=== PATIENT | male | born 1950 | race Caucasian/White ===

== ENCOUNTER → 2018-01-28 11:11 | Outpatient (CLI) | payer MEDICARE, SELFPAY ==
[2018-01-28 11:45] LABS: Absolute Lymphocyte Count 1.23 X10^3/ul (0.83-4.51); Absolute Neutrophil Count 3.6 X10^3/uL (2.0-7.7); Basophil# 0.03 X10^3/uL; Basophil% 0.5 % (0-1); Eosinophils% 5.5 % (0-5); Hematocrit 35.8 % (40-54); Lymphocyte # 1.23 X10^3/ul (4.0); Lymphocyte % 22.5 % (19-41); Mean Corp Hgb Conc 33.5 g/gl (32-36); Mean Corpuscular Hgb 30.9 pg (27.0-32.0); Mean Corpuscular Volume 92.3 fL (80-94); Mean Platelet Vol. 10.8 fl (6.2-12.0); Monocyte# 0.33 X10^3/uL; Neutrophil # 3.56 X10^3/uL (2.7-7.7); Neutrophil % 65.3 % (47-70); Platelet Count 134 K/mm3 (150-450); RBC Distribution Width CV 14.5 % (11.6-14.6); RBC Distribution Width SD 48.3 fl (35.1-43.9); Red Blood Count 3.88 M/mm3 (4.6-6.2); White Blood Count 5.5 K/mm3 (4.4-11.0)
[2018-01-28 11:49] LABS: POSITIVE COUNT NO; POSITIVE DIFFERENTIAL NO; POSITIVE MORPHOLOGY NO
[2018-01-28 12:02] LABS: Microalbumin:Creatinine Ratio 171.3 mg/g CRE (<30 mg/g CRE)
[2018-01-28 12:11] LABS: Hemoglobin A1c 5.8 % (4.2-6.3)
[2018-01-28 12:15] LABS: ALB/GLOB Ratio 1.3 RATIO (0.9-2.4); AST(SGOT) 27 U/L (15-37); Alanine Aminotransfer ALT/SGPT 23 U/L (16-61); Albumin, Serum 3.8 g/dL (3.2-5.0); Alkaline Phosphatase 93 U/L (45-117); Anion Gap 6 (5-15); BUN 44 mg/dL (7-18); Calcium,Total 8.4 mg/dL (8.5-10.1); Chloride 110 mmol/L (98-107); Cholesterol 171 mg/dL (200); Creatinine, Serum 1.42 mg/dL (0.70-1.30); EST Glomerular Filtration Rate 53 mL/min (>60); Est Glom Filt Rate - Afr Amer 64 mL/min (>60); Glucose 101 mg/dL (74-106); High Density Lipoprotein 30 mg/dL; PSA,Total - Annual Screen 4.08 ng/mL (0.00-4.00); Potassium 4.9 mmol/L (3.5-5.1); Protein, Total 6.8 g/dL (6.4-8.2); Sodium Level 140 mmol/L (136-145); Triglycerides 262 mg/dL; Uric Acid 5.4 mg/dL (3.5-7.2); Very Low Density Lipoprotein 52 mg/dL (5-40)
== END ==
PROVIDERS: Family Provider Family Medicine; PCP Family Medicine; Visit Provider Family Medicine
DX: I12.9 Hypertensive chronic kidney disease with stage 1 through stage 4 chronic kidney disease, or unspecified chronic kidney disease (principal); N18.3 Chronic kidney disease, stage 3 (moderate); E78.5 Hyperlipidemia, unspecified; Z12.5 Encounter for screening for malignant neoplasm of prostate; E29.1 Testicular hypofunction; R73.9 Hyperglycemia, unspecified
CPT/HCPCS: 36415; 80053; 80061; 82043; 82570; 83036; 84153; 84550; 85025; G0103

== ENCOUNTER → 2018-08-04 07:11 | Outpatient (CLI) | payer MEDICARE, SELFPAY ==
[2018-08-04 08:00] LABS: ALB/GLOB Ratio 1.2 RATIO (0.9-2.4); AST(SGOT) 21 U/L (15-37); Alanine Aminotransfer ALT/SGPT 11 U/L (16-61); Albumin, Serum 3.8 g/dL (3.2-5.0); Alkaline Phosphatase 88 U/L (45-117); Anion Gap 6 (5-15); BUN 71 mg/dL (7-18); BUN/Creat Ratio 43.3 RATIO (10-20); Calcium,Total 8.5 mg/dL (8.5-10.1); Chloride 110 mmol/L (98-107); Cholesterol 188 mg/dL (200); Creatinine, Serum 1.64 mg/dL (0.70-1.30); EST Glomerular Filtration Rate 45 mL/min (>60); Est Glom Filt Rate - Afr Amer 54 mL/min (>60); Globulin 3.2 g/dL (2.2-4.2); Glucose 115 mg/dL (74-106); High Density Lipoprotein 31 mg/dL; PSA,Total- Diagnostic 1.28 ng/mL (0.0-4.0); Potassium 4.6 mmol/L (3.5-5.1); Sodium Level 140 mmol/L (136-145); Triglycerides 192 mg/dL; Very Low Density Lipoprotein 38 mg/dL (5-40)
[2018-08-04 09:04] LABS: Vitamin D,25 Hydroxy 16.4 ng/mL (29.95-100.01)
== END ==
PROVIDERS: Family Provider Family Medicine; PCP Family Medicine; Referring Provider Family Medicine; Visit Provider Family Medicine
DX: E78.5 Hyperlipidemia, unspecified (principal); I10 Essential (primary) hypertension; R97.20 Elevated prostate specific antigen [PSA]; M10.9 Gout, unspecified; E29.1 Testicular hypofunction; E55.9 Vitamin D deficiency, unspecified; Z12.5 Encounter for screening for malignant neoplasm of prostate
CPT/HCPCS: 36415; 80053; 80061; 82306; 84153

== ENCOUNTER → 2019-01-18 | Outpatient (CLI) | payer MEDICARE, SELFPAY ==
[2018-12-30 13:41] VITALS: BMI 36.3
--- NOTE | 2019-01-18 07:00 | ECHOD_ITS ---
Reason For Study: AORTIC STENOSIS Procedure This was a 2D Doppler, Color Flow transthoracic echocardiogram. Technically difficult parasternal window d/t pectus excavatum. Exam performed in department. Left Ventricle Normal LV size. Mild concentric left ventricular hypertrophy. The estimated ejection fraction is 55 %. Stage 1 diastolic dysfunction. No regional wall motion abnormalities noted. Right Ventricle Normal RV size. Normal systolic function. Atria The left atrium is mildly enlarged. Normal right atrium. Mitral Valve There is mild mitral annular calcification. Mild (1+) eccentric mitral valve insufficiency. Tricuspid Valve Normal tricuspid valve. Unable to estimate RV systolic pressure due to inadequate jet, pulmonary artery pressure probably normal. Aortic Valve Trisinus/trileaflet aortic valve. Mild focal aortic valve calcification. Peak aortic valve gradient 16 mmHg. Mean aortic valve gradient 9 mmHg. Mild aortic stenosis. Calculated aortic valve area (continuity equation) is 1.6 cm2. Pulmonic Valve Normal pulmonic valve. Great Vessels Calcified aortic root. The pulmonary artery is normal size. Normal inferior vena cava. Pericardium/Pleural No pericardial effusion. MMode/2D Measurements & Calculations LVIDd: 4.3 cm IVSd: 1.3 cm LVOT diam: 2.0 cm LVIDs: 2.9 cm LVPWd: 1.2 cm LVOT area: 3.2 cm2 RVDd: 4.1 cm FS: 32.7 % Ao root diam: 3.9 cm LAV(MOD-bp): 77.0 ml EDV(MOD-sp4): 131.1 ml LAV(MOD-bp) Indexed: 33.6 ml/m2 ESV(MOD-sp4): 53.9 ml LAV(MOD-sp2): 76.4 ml EF(MOD-sp4): 58.9 % LAV(MOD-sp4): 74.8 ml EDV(MOD-sp2): 130.2 ml SV(MOD-sp4): 77.2 ml SV(MOD-sp2): 74.6 ml EF(MOD-sp2): 57.3 % LA A4 area: 24.5 cm2 LA dimension(2D): 4.5 cm RA A4 area: 17.7 cm2 Time Measurements MV dec time: 0.28 sec Doppler Measurements & Calculations MV E max derek: 101.1 cm/sec Lat Peak E' Derek: 7.0 cm/sec Med Peak E' Derek: 4.9 cm/sec MV A max dreek: 141.3 cm/sec E/E' lat: 14.4 E/E' med: 20.6 MV E/A: 0.72 MV V2 max: 151.5 cm/sec Ao V2 max: 201.9 cm/sec LV V1 max: 100.8 cm/sec MV max P.2 mmHg Ao max P.4 mmHg LV V1 max P.1 mmHg MV V2 mean: 83.9 cm/sec Ao V2 mean: 144.5 cm/sec LV V1 mean P.2 mmHg MV mean P.2 mmHg Ao mean P.4 mmHg LV V1 mean: 69.2 cm/sec MV V2 VTI: 46.6 cm Ao V2 VTI: 52.1 cm LV V1 VTI: 26.4 cm MVA(VTI): 1.8 cm2 RAFAT(I,D): 1.6 cm2 RAFAT(V,D): 1.6 cm2 SV(LVOT): 83.8 ml PA V2 max: 105.7 cm/sec PI end-d derek: 122.6 cm/sec MV P1/2t-pr_phl: 124.9 msec Interpretation Summary Normal LV size. Mild concentric left ventricular hypertrophy. The estimated ejection fraction is 55 %. Stage 1 diastolic dysfunction. Calculated aortic valve area (continuity equation) is 1.6 cm2. Mild aortic stenosis. Mild focal aortic valve calcification. Ordering Physician: Larry Stephenson/Federico Chacko Referring Physician: RAZIA MAYA Performed By: Valerie Bailye, KENDALL, RVT
[2019-01-18 07:42] LABS: Absolute Lymphocyte Count 1.43 X10^3/ul (0.83-4.51); Absolute Neutrophil Count 3.5 X10^3/uL (2.0-7.7); Basophil# 0.04 X10^3/uL; Basophil% 0.7 % (0-1); Eosinophil# 0.22 X10^3/uL; Eosinophils% 3.8 % (0-5); Hematocrit 36.2 % (40-54); Hemoglobin 12.1 g/dl (13.0-16.5); Lymphocyte # 1.43 X10^3/ul (4.0); Lymphocyte % 24.9 % (19-41); Mean Corp Hgb Conc 33.4 g/gl (32-36); Mean Corpuscular Hgb 30.4 pg (27.0-32.0); Mean Platelet Vol. 10.9 fl (6.2-12.0); Monocyte# 0.54 X10^3/uL; Monocyte% 9.4 % (0-10); Neutrophil % 60.9 % (47-70); Platelet Count 156 K/mm3 (150-450); RBC Distribution Width CV 14.5 % (11.6-14.6); RBC Distribution Width SD 47.4 fl (35.1-43.9); Red Blood Count 3.98 M/mm3 (4.6-6.2); White Blood Count 5.8 K/mm3 (4.4-11.0)
[2019-01-18 07:51] LABS: POSITIVE COUNT NO; POSITIVE DIFFERENTIAL NO; POSITIVE MORPHOLOGY NO
[2019-01-18 07:53] LABS: ALB/GLOB Ratio 1.3 RATIO (0.9-2.4); AST(SGOT) 27 U/L (15-37); Alanine Aminotransfer ALT/SGPT 12 U/L (16-61); Albumin, Serum 3.9 g/dL (3.2-5.0); Alkaline Phosphatase 78 U/L (45-117); Anion Gap 6 (5-15); BUN 73 mg/dL (7-18); BUN/Creat Ratio 32.9 RATIO (10-20); Calcium,Total 8.6 mg/dL (8.5-10.1); Chloride 110 mmol/L (98-107); Cholesterol 191 mg/dL (200); Creatinine, Serum 2.22 mg/dL (0.70-1.30); EST Glomerular Filtration Rate 31 mL/min (>60); Est Glom Filt Rate - Afr Amer 38 mL/min (>60); Globulin 3.1 g/dL (2.2-4.2); Glucose 113 mg/dL (74-106); High Density Lipoprotein 33 mg/dL; Potassium 5.1 mmol/L (3.5-5.1); Sodium Level 140 mmol/L (136-145); Triglycerides 177 mg/dL; Uric Acid 6.2 mg/dL (3.5-7.2); Very Low Density Lipoprotein 35 mg/dL (5-40)
[2019-01-18 08:20] LABS: Microalbumin,Random Urine 75.5 mg/L (NO RANGE EST.); Microalbumin:Creatinine Ratio 57.6 mg/g CRE (<30 mg/g CRE)
[2019-01-18 08:30] LABS: Vitamin D,25 Hydroxy 22.5 ng/mL (29.95-100.01)
[2019-01-18 08:32] LABS: Hemoglobin A1c 5.9 % (4.2-6.3)
== END | disposition home or self-care (01) ==
PROVIDERS: Family Provider Family Medicine; PCP Family Medicine; Referring Provider Nurse Practitioner Family; Visit Provider Nurse Practitioner Family
DX: I35.0 Nonrheumatic aortic (valve) stenosis (principal); I34.2 Nonrheumatic mitral (valve) stenosis; I44.30 Unspecified atrioventricular block; G47.33 Obstructive sleep apnea (adult) (pediatric); E78.5 Hyperlipidemia, unspecified; R73.01 Impaired fasting glucose; E55.9 Vitamin D deficiency, unspecified; M10.9 Gout, unspecified; I12.9 Hypertensive chronic kidney disease with stage 1 through stage 4 chronic kidney disease, or unspecified chronic kidney disease; N18.3 Chronic kidney disease, stage 3 (moderate)
CPT/HCPCS: 36415; 80053; 80061; 82043; 82306; 82570; 83036; 84550; 85025; 93306

== ENCOUNTER → 2019-01-31 | Outpatient (CLI) | payer MEDICARE, SELFPAY ==
[2018-12-30 13:41] VITALS: BMI 36.3
[2019-01-31 18:06] LABS: Anion Gap 10 (5-15); BUN 54 mg/dL (7-18); BUN/Creat Ratio 25.2 RATIO (10-20); Calcium,Total 9.2 mg/dL (8.5-10.1); Chloride 105 mmol/L (98-107); Creatinine, Serum 2.14 mg/dL (0.70-1.30); EST Glomerular Filtration Rate 33 mL/min (>60); Est Glom Filt Rate - Afr Amer 40 mL/min (>60); Glucose 100 mg/dL (74-106); Potassium 4.6 mmol/L (3.5-5.1); Sodium Level 143 mmol/L (136-145)
== END | disposition home or self-care (01) ==
LOC: BFHLAB 15:21
PROVIDERS: Family Provider Family Medicine; PCP Family Medicine; Visit Provider Family Medicine
DX: N18.3 Chronic kidney disease, stage 3 (moderate) (principal)
CPT/HCPCS: 36415; 80048

== ENCOUNTER → 2019-02-15 | Outpatient (CLI) | payer MEDICARE, SELFPAY ==
[2018-12-30 13:41] VITALS: BMI 36.3
[2019-02-15 12:34] LABS: Anion Gap 7 (5-15); BUN 52 mg/dL (7-18); Chloride 109 mmol/L (98-107); Creatinine, Serum 1.68 mg/dL (0.70-1.30); EST Glomerular Filtration Rate 43 mL/min (>60); Est Glom Filt Rate - Afr Amer 53 mL/min (>60); Glucose 109 mg/dL (74-106); Potassium 4.8 mmol/L (3.5-5.1); Sodium Level 140 mmol/L (136-145)
== END | disposition home or self-care (01) ==
LOC: LAB.FUTURE 08:12
PROVIDERS: Family Provider Family Medicine; PCP Family Medicine; Visit Provider Family Medicine
DX: N18.3 Chronic kidney disease, stage 3 (moderate) (principal)
CPT/HCPCS: 36415; 80048

== ENCOUNTER → 2019-08-19 08:55 | Outpatient (CLI) | payer MEDICARE, SELFPAY ==
[2018-12-30 13:41] VITALS: BMI 36.3
--- NOTE | 2019-08-19 08:58 | RAD_ITS ---
STUDY: X-RAY - LUMBAR SPINE REASON FOR EXAM: Male, 68 years old. CHRONIC BACK PAIN, NO KNOWN INJURY TECHNIQUE: 4 view(s) of the lumbar spine were obtained. COMPARISON: None FINDINGS: Normal lumbar lordosis. There is no substantial scoliosis. There is a normal alignment of the vertebrae. There is multilevel endplate spondylosis of the lumbar vertebrae. There is multi-level degenerative disc disease with multi-level disc space narrowing. These findings are more severe at L3-L4 where there is vacuum phenomenon. There is no demonstrated fracture. There is no demonstrated spondylolysis of the pars interarticulares. There are extensive bilateral facet hypertrophic changes. Surgical clips along the anterior spinal region. RAD/L/S Spine Min 4 Views IMPRESSION: Advanced spondylosis/degenerative disease with no acute fracture, spondylolisthesis or pars defect. Electronically Signed: Lauren Acharya MD at 0:27 EST , Service support ,
== END ==
PROVIDERS: Family Provider Family Medicine; PCP Family Medicine; Referring Provider Family Medicine; Visit Provider Family Medicine
DX: M54.5 Low back pain (principal); G89.29 Other chronic pain
CPT/HCPCS: 72110

== ENCOUNTER → 2020-01-27 | Outpatient (CLI) | payer MEDICARE, SELFPAY ==
[2020-01-03 15:54] VITALS: BMI 34.8
--- NOTE | 2020-01-27 08:52 | ECHOD_ITS ---
Reason For Study: MURMUR Procedure This was a 2D Doppler, Color Flow transthoracic echocardiogram. Exam performed in department. Left Ventricle Normal LV size. Left ventricular systolic function is normal. The estimated ejection fraction is 60 %. Stage 1 diastolic dysfunction. No regional wall motion abnormalities noted. Right Ventricle Normal RV size. Normal systolic function. Atria Normal left atrium. Normal right atrium. Mitral Valve There is mild to moderate mitral annular calcification. Mild (1+) eccentric mitral valve insufficiency. Tricuspid Valve Normal tricuspid valve. Mild (1+) tricuspid valve insufficiency. Pulmonary artery systolic pressure is 20 mmHg. Aortic Valve Trisinus/trileaflet aortic valve. Moderate focal aortic valve calcification. Aortic sclerosis, no stenosis. Pulmonic Valve Normal pulmonic valve. Great Vessels Calcified aortic root. The pulmonary artery is normal size. Normal inferior vena cava. Pericardium/Pleural No pericardial effusion. MMode/2D Measurements & Calculations LVIDd: 5.4 cm IVSd: 1.2 cm LVOT diam: 2.4 cm LVIDs: 2.9 cm LVPWd: 1.2 cm LVOT area: 4.4 cm2 RVDd: 3.7 cm FS: 46.2 % Ao root diam: 3.7 cm LAV(MOD-bp): 74.8 ml LA A4 area: 22.2 cm2 LAV(MOD-bp) Indexed: 33.0 ml/m2 LAV(MOD-sp2): 60.5 ml LAV(MOD-sp4): 79.0 ml LA dimension(2D): 4.4 cm RA A4 area: 16.8 cm2 Time Measurements MV dec time: 0.34 sec Doppler Measurements & Calculations MV E max derek: 98.7 cm/sec Lat Peak E' Derek: 6.8 cm/sec Med Peak E' Derek: 6.9 cm/sec MV A max derek: 139.5 cm/sec E/E' lat: 14.4 E/E' med: 14.3 MV E/A: 0.71 Ao V2 max: 225.5 cm/sec LV V1 max: 114.3 cm/sec SV(LVOT): 125.1 ml Ao max P.8 mmHg LV V1 max P.2 mmHg Ao V2 mean: 165.5 cm/sec LV V1 mean P.0 mmHg Ao mean P.4 mmHg LV V1 mean: 82.9 cm/sec Ao V2 VTI: 55.7 cm LV V1 VTI: 28.1 cm RAFAT(I,D): 2.2 cm2 RAFAT(V,D): 2.3 cm2 TR max derek: 209.8 cm/sec TR max P.6 mmHg Interpretation Summary Normal LV size. Left ventricular systolic function is normal. The estimated ejection fraction is 60 %. Moderate focal aortic valve calcification. Stage 1 diastolic dysfunction. Pulmonary artery systolic pressure is 20 mmHg. Ordering Physician: Federico Chacko Referring Physician: Tom Crocker Performed By: Bertha Negrete RDCS, RVT
[2020-01-27 11:27] LABS: Absolute Lymphocyte Count 0.96 X10^3/uL (0.83-4.51); Absolute Neutrophil Count 4.2 X10^3/uL (2.0-7.7); Basophil# 0.04 X10^3/uL; Basophil% 0.7 % (0-1); Eosinophil# 0.17 X10^3/uL; Eosinophils% 2.9 % (0-5); Hematocrit 36.9 % (40-54); Hemoglobin 12.5 g/dL (13.0-16.5); Lymphocyte # 0.96 X10^3/ul (4.0); Lymphocyte % 16.2 % (19-41); Mean Corp Hgb Conc 33.9 g/dL (32-36); Mean Corpuscular Hgb 31.9 pg (27.0-32.0); Mean Corpuscular Volume 94.1 fL (80-94); Mean Platelet Vol. 11.2 fl (6.2-12.0); Monocyte# 0.52 X10^3/uL; Monocyte% 8.8 % (0-10); NRBC Flagged by Analyzer 0 % (0-5); Neutrophil # 4.19 X10^3/uL (2.7-7.7); Neutrophil % 70.9 % (47-70); Platelet Count 164 K/mm3 (150-450); RBC Distribution Width CV 13.7 % (11.6-14.6); RBC Distribution Width SD 45.9 fl (35.1-43.9); Red Blood Count 3.92 M/mm3 (4.6-6.2); White Blood Count 5.9 K/mm3 (4.4-11.0)
[2020-01-27 12:17] LABS: BUN 50 mg/dL (7-18); Creatinine, Serum 1.56 mg/dL (0.70-1.30); Glucose 104 mg/dL (74-106)
[2020-01-27 12:18] LABS: ALB/GLOB Ratio 1.2 RATIO (0.9-2.4); AST(SGOT) 31 U/L (15-37); Alanine Aminotransfer ALT/SGPT 14 U/L (16-61); Albumin, Serum 3.7 g/dL (3.2-5.0); Alkaline Phosphatase 75 U/L (45-117); Anion Gap 6 (5-15); BUN/Creat Ratio 32.1 RATIO (10-20); Calcium,Total 9.2 mg/dL (8.5-10.1); Chloride 110 mmol/L (98-107); Cholesterol 196 mg/dL (200); EST Glomerular Filtration Rate 47 mL/min (>60); Est Glom Filt Rate - Afr Amer 57 mL/min (>60); Globulin 3.1 g/dL (2.2-4.2); High Density Lipoprotein 34 mg/dL; PSA,Total - Annual Screen 1.64 ng/mL (0.00-4.00); Potassium 5.1 mmol/L (3.5-5.1); Protein, Total 6.8 g/dL (6.4-8.2); Sodium Level 140 mmol/L (136-145); Triglycerides 216 mg/dL; Uric Acid 5.5 mg/dL (3.5-7.2); Very Low Density Lipoprotein 43 mg/dL (5-40)
[2020-01-27 16:07] LABS: Vitamin D,25 Hydroxy 29.6 ng/mL
== END | disposition home or self-care (01) ==
PROVIDERS: PCP Family Medicine; Referring Provider Internal Medicine Cardiovascular Disease; Visit Provider Internal Medicine Cardiovascular Disease
DX: I35.0 Nonrheumatic aortic (valve) stenosis (principal); I12.9 Hypertensive chronic kidney disease with stage 1 through stage 4 chronic kidney disease, or unspecified chronic kidney disease; N18.3 Chronic kidney disease, stage 3 (moderate); E55.9 Vitamin D deficiency, unspecified; M10.9 Gout, unspecified; Z12.5 Encounter for screening for malignant neoplasm of prostate
CPT/HCPCS: 36415; 80053; 80061; 82306; 84153; 84550; 85025; 93306; G0103

== ENCOUNTER → 2020-08-07 08:46 | Outpatient (CLI) | payer BC, SELFPAY ==
[2020-01-03 15:54] VITALS: BMI 34.8
[2020-08-07 12:11] LABS: Absolute Lymphocyte Count 0.99 X10^3/uL (0.83-4.51); Absolute Neutrophil Count 3.3 X10^3/uL (2.0-7.7); Basophil# 0.03 X10^3/uL; Basophil% 0.6 % (0-1); Eosinophil# 0.19 X10^3/uL; Eosinophils% 3.8 % (0-5); Hemoglobin 11.2 g/dL (13.0-16.5); Lymphocyte # 0.99 X10^3/ul (4.0); Lymphocyte % 19.8 % (19-41); Mean Corpuscular Hgb 30.9 pg (27.0-32.0); Mean Corpuscular Volume 96.4 fL (80-94); Monocyte# 0.49 X10^3/uL; Monocyte% 9.8 % (0-10); NRBC Flagged by Analyzer 0 % (0-5); Neutrophil # 3.29 X10^3/uL (2.7-7.7); Neutrophil % 65.6 % (47-70); Platelet Count 144 K/mm3 (150-450); RBC Distribution Width CV 14.6 % (11.6-14.6); RBC Distribution Width SD 51.1 fl (35.1-43.9); Red Blood Count 3.63 M/mm3 (4.6-6.2)
[2020-08-07 12:35] LABS: ALB/GLOB Ratio 1.3 RATIO (0.9-2.4); AST(SGOT) 37 U/L (15-37); Alanine Aminotransfer ALT/SGPT 22 U/L (16-61); Albumin, Serum 3.9 g/dL (3.2-5.0); Alkaline Phosphatase 66 U/L (45-117); Anion Gap 7 (5-15); BUN 51 mg/dL (7-18); BUN/Creat Ratio 31.1 RATIO (10-20); Calcium,Total 9.1 mg/dL (8.5-10.1); Chloride 111 mmol/L (98-107); Cholesterol 200 mg/dL (200); Creatinine, Serum 1.64 mg/dL (0.70-1.30); EST Glomerular Filtration Rate 44 mL/min (>60); Est Glom Filt Rate - Afr Amer 54 mL/min (>60); Globulin 2.9 g/dL (2.2-4.2); Glucose 108 mg/dL (74-106); High Density Lipoprotein 35 mg/dL; Magnesium 1.9 mg/dL (1.6-2.6); Potassium 4.8 mmol/L (3.5-5.1); Protein, Total 6.8 g/dL (6.4-8.2); Sodium Level 140 mmol/L (136-145); Thyroid Stim Hormone (TSH) 3.66 uIU/mL (0.358-3.74); Triglycerides 191 mg/dL; Very Low Density Lipoprotein 38 mg/dL (5-40)
== END ==
PROVIDERS: PCP Family Medicine; Visit Provider Family Medicine
DX: I12.9 Hypertensive chronic kidney disease with stage 1 through stage 4 chronic kidney disease, or unspecified chronic kidney disease (principal); N18.30 Chronic kidney disease, stage 3 unspecified; R25.2 Cramp and spasm
CPT/HCPCS: 36415; 80053; 80061; 83735; 84443; 85025

== ENCOUNTER 2020-11-26 | Observation (INO) | payer MEDICARE, SELFPAY ==
[2020-11-21 08:57] VITALS: BMI 34.7
[2020-11-26] VITALS (34 sets, daily range): BP systolic 109–215; BP diastolic 76–102; PULSE 58–88; RESP 14–22; TEMP 36.2–36.8; O2SAT 92–99; BMI 36.7; BMI 34.9; BMI 35.0
--- NOTE | 2020-11-26 00:32 | ED.RN ---
CALLED FOR EKG PER RN REQUEST, PT COMPLAINT OF CHEST PRESSURE, PULLED OLD EKGS FOR
--- NOTE | 2020-11-26 00:47 | EKG12_ITS ---
Test Reason : AM EKG Blood Pressure : / mmHG Vent. Rate : 060 BPM Atrial Rate : 060 BPM P-R Int : 238 ms QRS Dur : 080 ms QT Int : 450 ms P-R-T Axes : 018 005 013 degrees QTc Int : 450 ms Sinus rhythm with 1st degree A-V block Otherwise normal ECG When compared with ECG of 04-JUL-2014 09:25, No significant change was found Confirmed by GAURANG BRAGA, ZAID ([id number]), film and video editor RONNELL CHERY ([id number]) on 11/27/2020 10:52:31 AM Referred By: BARB Confirmed By:ZAID MERLOS MD
--- NOTE | 2020-11-26 00:49 | ED.DCSUM_ITS ---
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 Negative for: Nausea, Vomiting, Diaphoresis, Cough, Fever, Lightheadedness Narrative: 70-year-old male states he suddenly had palpitations and shortness of breath tonight, and he thinks chest pressure. The palpitations and dyspnea lasted just for couple minutes, and resolved prior to EMS arrival. The chest pressure has been present ever since. He states that the dyspnea is much better, the discomfort is not pleuritic and does not radiate. He has never had this before and does not have a history of heart problems except for a murmur that is followed with echocardiograms annually. He states that he had his second Covid vaccine, Moderna, 3 days ago and had no side effects such as fevers, headaches, myalgias from it. Also around that time, because of the swelling in his legs and elevated blood pressures, he was placed on Lasix 40 mg twice, followed by 20 mg the next morning, and none yesterday in addition to changing his daily propranolol to carvedilol, which he started 2 days ago. Yesterday he said he had systolic blood pressures in the 120s, this morning they were in the 180s and currently upon arrival to the ER he is 207/92. He states he had a mild headache this morning, it is a little worse now. His swelling was down in his legs after the Lasix, but today it is worse again. He has had no near syncopal episodes or syncope, even with the palpitations. No focal neurologic symptoms or vision changes. No confusion or disorientation. 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 Past Medical History - Allergies and Home Meds Allergies/Adverse Reactions: Allergies clindamycin Allergy (Verified 11/26/20 00:02) Swelling Sulfa (Sulfonamide Antibiotics) Allergy (Verified 11/26/20 00:02) Unknown simvastatin Adverse Reaction (Verified 11/26/20 00:02) myalgia Primary Care Physician: Tom Crocker DO [Primary Care Provider] - Doctors: Cardiology - [facility] Lives: Spouse/ Significant Other Smoking Status: Never smoker Review of Systems General: Denies: Chills, Fever, Sweats Eyes: Denies: Visual changes - bilaterally, Diplopia ENT: Denies: Bilateral ear pain, Rhinorrhea, Sore throat Cardiovascular: Reports: Chest pain, Palpitations, Heart racing Respiratory: Reports: Dyspnea. Denies: Cough, Dyspnea on exertion Gastrointestinal: Denies: Abdominal pain, Nausea, Vomiting, Diarrhea, Melena, Hematochezia Genitourinary: Denies: Dysuria, Hematuria, Frequency Musculoskeletal: Reports: Swelling - worse today. Denies: Neck pain, Back pain, Extremity Pain Skin: Denies: Rash, Wounds Neurological: Reports: Headache. Denies: Weakness, Numbness Physical Exam Vital Signs/Narrative: Vital Signs Temp Pulse Resp BP Pulse Ox 11/26/20 00:42 71 16 207/92 H 98 11/26/20 00:02 97.2 F L 67 22 H 211/92 H 99 Inital Vital Signs reviewed: Yes General: Well nourished, Well developed, No Acute Distress - Conversive in full sentences, provides entire history Head: Normocephalic, Atraumatic Eyes: Perrl, EOMI ENT: Moist mucous membranes, No rhinorrhea Neck: Supple, Nontender, No lymphadenopathy, No JVD Cardiovascular: Regular rate, Regular rhythm, Murmur - Systolic soft ejection murmur, 2/6. Negative for: Tachycardia Respiratory: No distress, CTA bilaterally, Chest nontender Abdomen: Soft, Nontender, Nondistended, Normal bowel sounds Back: Nontender, Normal Inspection Extremities: Nontender, Edema - 2+ both lower extremities to the mid smith- proximal smith, symmetric bilaterally. Negative for: Calf Tenderness Skin: Normal color, No rash, No Trauma Neurological: Alert, Oriented x3, Cranial nerves II-XII grossly intact, Normal Strength, Normal Sensation Psychological: Normal affect, Normal Mood Diagnostic/Tx/Re-eval Impressions Chest X-Ray 11/26/20 01:32 IMPRESSION: Normal x-ray examination of the chest. Electronically Signed: Tari Marrufo MD at 2:39 EDT Tel , Service support , 11/26/20 01:32 Chest 1 View (Portable) [RAD] Stat Laboratory Results 11/26/20 11/26/20 11/26/20 01:30 01:30 01:30 WBC 4.7 RBC 3.98 L Hgb 12.4 L Hct 36.9 L MCV 92.7 MCH 31.2 MCHC 33.6 RDW Std Deviation 46.4 H RDW Coeff of Nir 13.6 Plt Count 159 MPV 10.6 Immature Gran % (Auto) 0.600 Neut % (Auto) 62.5 Lymph % (Auto) 21.5 [place] % (Auto) 10.0 Eos % (Auto) 4.5 Baso % (Auto) 0.9 Absolute Neuts (auto) 2.9 Absolute Lymphs (auto) 1.01 Nucleated RBC % 0 Sodium 136 Potassium 4.9 Chloride 104 Carbon Dioxide 27.0 Anion Gap 5 BUN 42 H Creatinine 1.28 Estim Creat Clear Calc 55.45 Est GFR (MDRD) Af Amer 72 Est GFR (MDRD) Non-Af 59 L BUN/Creatinine Ratio 32.8 H Glucose 112 H Calcium 8.9 Troponin I 0.215 H B-Natriuretic Peptide 80.5 - Rhythm Strip Rhythm Strip: Sinus Rhythm Rate: 68 Ectopy: None - EKG Initial EKG Interpretation: Sinus Rhythm, No Acute Injury Pattern, AV Block - First-degree, - - Otherwise normal EKG Prior: Unchanged - Similar to EMS EKG and old EKG Treatment: Aspirin, NTG SL DIGNA Risk: Age >/= 65, ASA within 7 days - Takes baby aspirin daily Score: 2 - Medical Decision Making Heart score is 1, 0, 2, 1, 0 = 4. Patient was given IV Lasix; he declined nitroglycerin since when the nurse offered it, his pressure had resolved. On reevaluation, he still has resolution of the pressure but still has a headache. I had held off on treating his blood pressure until after he received nitroglycerin to see where he was at with his BP, but since he did not get any, and his troponin is abnormal, he was given aspirin in addition to clonidine 0.1 mg orally, and nitroglycerin paste on his chest. Prior to initiating these medications, his repeat blood pressure is 173 systolic, and his heart rate is 60 so I held off on labetalol/beta-francisco due to the relative bradycardia. He was also given Tylenol for the headache and to prevent the nitroglycerin for making it worse. His EKG shows nothing acute, now his discomfort is gone, plan is for admission and further work-up and evaluation. Discussed with cardiology Dr. Chacko who prefers him to have a Lovenox injection and no clopidogrel load at this time. Discussed with hospitalist. Will admit to ICU. ED Disposition - Plan for ED Patient: Disposition: Acute Care Hospital [facility] Diagnosis: Unstable angina, Palpitations, Accelerated hypertension Referrals: Tom Crocker DO [Primary Care Provider] -
[2020-11-26] MEDS: Aspirin 81 MG TAB.CHEW 324 MG PO (01:01)
[2020-11-26] MEDS: Furosemide 20 MG/2 ML VIAL IV (01:01)
[2020-11-26 01:31] LABS: Absolute Lymphocyte Count 1.01 X10^3/uL (0.83-4.51); Absolute Neutrophil Count 2.9 X10^3/uL (2.0-7.7); Basophil# 0.04 X10^3/uL; Basophil% 0.9 % (0-1); Eosinophil# 0.21 X10^3/uL; Eosinophils% 4.5 % (0-5); Hematocrit 36.9 % (40-54); Hemoglobin 12.4 g/dL (13.0-16.5); Lymphocyte # 1.01 X10^3/ul (4.0); Lymphocyte % 21.5 % (19-41); Mean Corp Hgb Conc 33.6 g/dL (32-36); Mean Corpuscular Hgb 31.2 pg (27.0-32.0); Mean Corpuscular Volume 92.7 fL (80-94); Mean Platelet Vol. 10.6 fl (6.2-12.0); Monocyte# 0.47 X10^3/uL; NRBC Flagged by Analyzer 0 % (0-5); Neutrophil # 2.93 X10^3/uL (2.7-7.7); Neutrophil % 62.5 % (47-70); Platelet Count 159 K/mm3 (150-450); RBC Distribution Width CV 13.6 % (11.6-14.6); RBC Distribution Width SD 46.4 fl (35.1-43.9); Red Blood Count 3.98 M/mm3 (4.6-6.2); White Blood Count 4.7 K/mm3 (4.4-11.0)
--- NOTE | 2020-11-26 01:32 | RAD_ITS ---
STUDY: X-RAY CHEST REASON FOR EXAM: Male, 70 years old. chest pain TECHNIQUE: Single AP portable view of the chest. COMPARISON: None. FINDINGS: The lungs are clear and expanded. There is no demonstrated pleural abnormality. Normal size heart. Normal mediastinum and tai. Normal visualized pulmonary arteries. Normal visualized aortic arch and descending thoracic aorta. Normal visualized thoracic spine. Normal visualized ribs, clavicles, and shoulders. There is no demonstrated abnormality of the visualized soft tissue structures of the upper abdomen. RAD/Chest 1 View (Portable) IMPRESSION: Normal x-ray examination of the chest. Electronically Signed: Tari Marrufo MD at 2:39 EDT Tel , Service support ,
[2020-11-26 01:47] LABS: BNP,B-Type NATRIURETIC PEPTIDE 80.5 pg/mL (0-100)
[2020-11-26 01:49] LABS: Anion Gap 5 (5-15); BUN 42 mg/dL (7-18); BUN/Creat Ratio 32.8 RATIO (10-20); Calcium,Total 8.9 mg/dL (8.5-10.1); Chloride 104 mmol/L (98-107); Creatinine, Serum 1.28 mg/dL (0.70-1.30); EST Glomerular Filtration Rate 59 mL/min (>60); Est Glom Filt Rate - Afr Amer 72 mL/min (>60); Estimated Creatinine Clearance 55.45 ml/min; Glucose 112 mg/dL (74-106); Potassium 4.9 mmol/L (3.5-5.1); Sodium Level 136 mmol/L (136-145)
[2020-11-26] MEDS: cloNIDine HCl 0.1 MG Tablet 0.2 MG PO (02:50)
[2020-11-26] MEDS: Nitroglycerin Oint 1 INCH PACKET TD (02:56)
[2020-11-26] MEDS: Acetaminophen 500 MG Tablet 1000 MG PO (02:56)
--- NOTE | 2020-11-26 03:06 | HP.PCM_ITS ---
Problem List (1) Hypertensive urgency Status: Acute (2) Chest pain Status: Acute Qualifiers: Chest pain type: unspecified Qualified Code(s): R07.9 - Chest pain, unspecified (3) Cardiac enzymes elevated Status: Acute (4) PATRICIO (obstructive sleep apnea) Status: Chronic (5) Hyperlipidemia Status: Chronic Qualifiers: Hyperlipidemia type: unspecified Qualified Code(s): E78.5 - Hyperlipidemia, unspecified (6) Parkinsons disease Status: Chronic (7) Essential (primary) hypertension Status: Chronic (8) Nonrheumatic aortic (valve) stenosis Status: Chronic (9) Testicular malignancy Status: Chronic Qualifiers: Descendance of testis: unspecified Laterality: right Qualified Code(s): C62.91 - Malignant neoplasm of right testis, unspecified whether descended or undescended Comment: Right testicular resection due to malignant tumor with lymph nodes removed History of Present Illness Date of Admission: 11/26/20 Chief Complaint: Chest pain, headache, palpitations, elevated BP. The patient is a 70 y/o M w/ PMHx: CKD stage III, Parkinson's disease, Essential tremor, HTN, HLD, Hypothyroidism, Gout, PATRICIO, Hx Testicular CA s/p resection who presents to the [facility] ED on 11/26/20 with history of 3 to 4 months of worsening lower extremity swelling and discomfort with recent 11/21/2020 urgent cardiology evaluation secondary to uncontrolled high blood pressure with recent change of his medications for essential tremor with cardiology transition off of propranolol to Coreg, continue losartan and at that visit initiation of Lasix therapy in an attempt to assist with his lower extremity swelling and his blood pressure however there was reported to call back with low blood pressures therefore this had been held however patient had recurrent significantly elevated blood pressures a.m. prior to ED presentation with systolic in the 180s with onset of mild headache rated 4-5 out of 10 in severity, frontal, pressure- like and sensation, recurrent lower extremity swelling despite recent Lasix administration as well as onset of chest discomfort, midsternal, nonradiating, pressure-like sensation, rated 4-6 out of 10 in severity, resolved prior to ED presentation with no radiation, dyspnea, lightheadedness, dizziness associated however did have palpitations/racing heart starting approximately 2 hours prior to ED arrival noted to be intermittent, lasting 1 to 2 minutes with associated dyspnea described as severe although improved upon ED presentation. Patient does report having his recent Covid second Moderna vaccination 3 days prior to current presentation with no significant side effects. Work-up in the ED included T 97.2, heart rate 67, BP initially 211/92--> eventually decreasing following significant medication administration in the ED to 174/93, respiratory rate 22, 99% on room air, CBC with WC 4.7, hemoglobin 12.4, platelet 159 without marked shift, BMP with BUN/creatinine 42/1.28, glucose 112, troponin 0 0.215, BNP 80.5, chest x-ray with no acute cardiopulmonary findings, EKG with sinus rhythm with first-degree AV block with no acute evidence of ischemia unchanged from prior. In the ED patient ministered nitroglycerin, aspirin 324 mg p.o. x1 and Lasix 20 mg IV x1. Patient blood pressure did not improve therefore Nitro- Bid paste placed, clonidine 0.2 mg p.o. x1 also administered and patient administered labetalol 10 mg IV x1. Past Medical History Past Medical History (Chronic Problems): Chronic Problems (Last Reviewed 11/22/20 @ 11:24 by Reyna ALVARADO, PA) Parkinsons disease (Chronic) PATRICIO (obstructive sleep apnea) (Chronic) Hyperlipidemia (Chronic) Essential (primary) hypertension (Chronic) Nonrheumatic aortic (valve) stenosis (Chronic) Testicular malignancy (Chronic) Right testicular resection due to malignant tumor with lymph nodes removed Medical History: Medical History (Last Reviewed 11/22/20 @ 11:24 by Reyna ALVARADO, PA) Essential (primary) hypertension (Chronic) I10 Nonrheumatic aortic (valve) stenosis (Chronic) I35.0 Testicular malignancy (Chronic) C62.90 Right testicular resection due to malignant tumor with lymph nodes removed CKD (chronic kidney disease) N18.9 Gout M10.9 Hypothyroidism E03.9 PATRICIO (obstructive sleep apnea) G47.33 Obesity E66.9 Parkinsons disease G20 Tremor, essential G25.0 Nonrheumatic mitral (valve) stenosis (Ruled-out) I34.2 Atrioventricular block (Inactive) I44.30 Cardiomegaly (Inactive) I51.7 Allergies clindamycin Allergy (Verified 11/26/20 00:02) Swelling Sulfa (Sulfonamide Antibiotics) Allergy (Verified 11/26/20 00:02) Unknown simvastatin Adverse Reaction (Verified 11/26/20 00:02) myalgia Home Medications: Ambulatory Orders Medication Instructions Recorded Allopurinol [Zyloprim] 300 mg PO DAILY 10/18/13 Aspirin [Aspirin, Baby] 81 mg PO DAILY@0800 10/18/13 Carbidopa/Levodopa 50/200 [Sinemet 1 tab PO TIDAC 10/18/13 CR 50/200] pramipexole 0.25 mg tablet 0.25 mg PO TID tab 01/01/18 ascorbic acid (vitamin C) 1,000 mg 1,500 mg PO QDAY tab 01/03/20 tablet cholecalciferol (vitamin D3) 25 50 mcg PO DAILY 01/03/20 mcg (1,000 unit) capsule losartan 100 mg tablet 100 mg PO DAILY #90 tab 10/29/20 albuterol sulfate 90 mcg/actuation 1 inh INHALATION ONCE 11/21/20 aerosol inhaler primidone 50 mg tablet 50 mg PO BID tablet 11/21/20 tizanidine 2 mg capsule 2 mg PO TID PRN 11/21/20 carvedilol 12.5 mg tablet 12.5 mg PO BID #60 tablet 11/22/20 Triamcinolone Acetonide [Nasacort] 2 spray NS DAILY PRN 11/26/20 Surgical History: Surgical History (Last Reviewed 11/22/20 @ 11:24 by Reyna ALVARADO, PA) History of surgical removal of testicle Z98.890, Z90.79 History of tonsillectomy Z90.89 Surgical History: - - Tonsillectomy, testicular resection, right secondary to malignancy. Psychiatric History: No pertinent psych hx Lives: Spouse/ Significant Other Smoking Status: Never smoker Tobacco Use: Non-smoker Alcohol: None Drugs: None - *Family History Maternal Family History: Family History (Last Reviewed 11/22/20 @ 11:24 by Reyna ALVARADO, PA) Father CAD (coronary artery disease) Sudden cardiac , Onset Age: 59 Myocardial infarction, Onset Age: 59 Hypertension Mother Heart disease Hypertension Brother Sudden cardiac , Onset Age: 68 History Items: High Cholesterol, Heart Disease, Hypertension Paternal Family History: Family History (Last Reviewed 11/22/20 @ 11:24 by Reyna ALVARADO, PA) Father CAD (coronary artery disease) Sudden cardiac , Onset Age: 59 Myocardial infarction, Onset Age: 59 Hypertension Mother Heart disease Hypertension Brother Sudden cardiac , Onset Age: 68 History Items: High Cholesterol, Heart Disease, Hypertension Review of Systems Constitutional: Reports: Malaise, Weakness, Fatigue. Denies: Anorexia, Chills, Fever, Weight Change HEENT: Reports: Head Aches. Denies: Sinus Congestion, Sinus Drainage Cardiovascular: Reports: Chest Pain, Chest Pressure, Edema. Denies: Light Headedness, Orthopnea, Palpitations, Syncope Respiratory: Denies: Cough, Shortness of Breath, Shortness of breath at rest, Shortness of breath upon exertion, Sputum production Gastrointestinal: Denies: Abdominal Pain, Nausea, Vomiting Genitourinary: Denies: Dysuria Musculoskeletal: Reports: Joint Pain, Leg Pain. Denies: Joint Tenderness Skin: Denies: Rash, Wounds Neurological: Denies: Numbness, Tingling, Focal weakness Psychiatric: Denies: Anxiety, Depression, Homicidal Ideations, Suicidal Ideations Hematologic/ Lymphatic: Reports: Anemia. Denies: Easy Bruising, Easy Bleeding VTE Information - Inpt Only VTE Present on Admission: No VTE Mechan Device Prophylaxis: SCD's VTE Pharm Prophylaxis ordered?: Yes Patient Problems: Active and Suspected Problems (Last Reviewed 11/22/20 @ 11:24 by Reyna ALVARADO, PA) Unstable angina (Acute) Palpitations (Acute) Hypertensive urgency (Acute) Chest pain (Acute) Cardiac enzymes elevated (Acute) Subjective: Patient seated upright at the ED bedside, fatigued, notes headache still there, less severe, 3-4 currently out of 10 in severity, no recurrent chest pain. Objective: Physical Examination: General: awake, alert, oriented x 3 and cooperative, seated upright at the ED bedside, fatigued, notes headache still present but less severe, no chest pain. Skin: normal color, turgor, no icterus, cyanosis except noted mild stasis disease skin changes bilateral lower extremities. HEENT: AT/NC, EOMI, PERRLA, mildly dry MM, no carotid bruits or JVD noted. Lungs: Diminished breath sounds, greater bases, moderate effort, no evidence of any distress, no rales, ronchi or wheezing. Heart: Regular rate and rhythm; no gallop, rub audible, + SM. Abdomen: soft, obese, NTTP, ND, normal BS, no HSM. Extremities: no cyanosis or clubbing, see skin, pedal to proximal smith 3+ pitting edema. Neurological: patient awake, alert, oriented as noted; cognitive function intact; pupils equally reactive to light and accomodation; cranial nerves II-XII grossly normal, moving all 4 extremities, no focal deficits, strength moderately global decrease secondary to acute presentation. Psychiatric: affect appears fatigued, no acute evidence of depressive or anxiety feelings. - Physical Exam Vitals/I&O's: Vital Signs Temp Pulse Resp BP Pulse Ox 97.2 F L 61 20 H 174/93 H 98 11/26/20 00:02 11/26/20 02:50 11/26/20 02:50 11/26/20 02:56 11/26/20 02:50 Oxygen Delivery Method Room Air Weight: 255 lb 15.307 oz Body Mass Index (BMI) 36.7 Laboratory Results 11/26/20 01:30: WBC 4.7, RBC 3.98 L, Hgb 12.4 L, Hct 36.9 L, MCV 92.7, MCH 31.2, MCHC 33.6, RDW Std Deviation 46.4 H, RDW Coeff of Nir 13.6, Plt Count 159, MPV 10.6, Immature Gran % (Auto) 0.600, Neut % (Auto) 62.5, Lymph % (Auto) 21.5, [place] % (Auto) 10.0, Eos % (Auto) 4.5, Baso % (Auto) 0.9, Absolute Neuts (auto) 2.9, Absolute Lymphs (auto) 1.01, Nucleated RBC % 0 11/26/20 01:30: Sodium 136, Potassium 4.9, Chloride 104, Carbon Dioxide 27.0, Anion Gap 5, BUN 42 H, Creatinine 1.28, Estim Creat Clear Calc 55.45, Est GFR (MDRD) Af Amer 72, Est GFR (MDRD) Non-Af 59 L, BUN/Creatinine Ratio 32.8 H, Glucose 112 H, Calcium 8.9, Troponin I 0.215 H 11/26/20 01:30: B-Natriuretic Peptide 80.5 Current Medications Sodium Chloride () 1,000 mls @ 0 mls/hr IV .Q0M [facility] Nitroglycerin (Nitroglycerin Sl (Ed/Img/Cath) 0.4 Mg Tablet) 0.4 mg SL Q5M PRN PRN Reason: Chest pain Assessment/Plan All Active Problems (Last Reviewed 11/22/20 @ 11:24 by Reyna Vaca PA, PA) Unstable angina (Acute) Palpitations (Acute) Hypertensive urgency (Acute) Chest pain (Acute) Cardiac enzymes elevated (Acute) Nonrheumatic mitral (valve) stenosis (Ruled-out) The patient is a 70 y/o M w/ PMHx: CKD stage III, Parkinson's disease, Essential tremor, HTN, HLD, Hypothyroidism, Gout, PATRICIO, Hx Testicular CA s/p resection who presents to the [facility] ED on 11/26/20 with hx 3-4 months worsened BL LE edema, recent medication changes to propranolol with worsened BP with outpatient 11/21/20 Cardiology evaluation with changes to coreg and addition lasix transiently with then onset day prior to ED presentation noted elevated blood pressures a.m. w/ systolic in the 180s with onset of mild headache, recurrent lower extremity swelling despite recent Lasix administration as well as onset of chest discomfort with palpitations/racing heart starting approximately 2 hours prior to ED arrival. 1. Hypertensive Urgency with indeterminate cardiac enzyme, chest pain: Will admit to the ICU as do suspect may necessitate Cardene drip given recurrent elevation of his blood pressure despite ED regimen, will obtain cardiac enzyme series, obtain serial EKGs, monitor I/Os, continue medical therapy w/ asa, BB, ACEI, noted statin allergy, lasix, snug jennifer wraps, initiate Cardene drip if recurrent uncontrolled hypertension, Nitropaste. Obtain magnesium level. Most recent ECHO noted 01/27/2020 with normal LV size, normal LV systolic function, EF 60%, moderate focal AV calcification, stage I diastolic dysfunction, PASP 20 mmHg thus will request repeat. Initiated and will continue on therapeutic Lovenox. N.p.o. status pending cardiology evaluation with sips water with medications. FLP in AM. ASA, NG, morphine. 2. Hyperlipidemia: Statin allergy noted, FLP in AM. 3. Chronic normocytic anemia: Admission hemoglobin 12.4, prior baseline 11-12, stable, trend. 4. Valvular heart disease: 01/27/2020 with normal LV size, normal LV systolic function, EF 60%, moderate focal AV calcification, stage I diastolic dysfunction, PASP 20 mmHg. 5. Parkinson's disease: We will continue patient home Sinemet and pramipexole regimen. Maintain on fall precautions, therapies consulted, case management consulted for discharge planning. 6. Essential tremor: We will continue patient home primidone regimen. Recently transition from propranolol to Coreg as there was some concern the medication was associated with recent poorly controlled blood pressure. 7. History of testicular cancer: Patient status post testicular resection, remission status. 8. Chronic Kidney Disease Stage III: Admission BUN/Cr 42/1.28, baseline renal function 1.4-1.6, repeat BMP in AM. 9. Gout: We will continue patient home allopurinol regimen. 10. Obesity: Weight loss and lifestyle changes encouraged. 11. PATRICIO: We will maintain on CPAP nightly. 12. DVT prophylaxis: SCDs, continue therapeutic Lovenox. 13. CODE status: Patient ALFREDA is his who is present and living will is currently in place. Discussed CODE status at length including difference between FULL code, DNR-CCA and DNR-CC status. Following discussions about the differences in these status, requested Full Code status. Advanced Care Planning Face to Face Time: 16 minutes. Inpatient E&M: 92771 Init Hosp L3 Procedures: 54494 Advncd Care Plan 30 Min
[2020-11-26] MEDS: Enoxaparin 120 MG/0.8 ML Syringe 115 MG SC (04:01)
--- NOTE | 2020-11-26 04:05 | ECHOD_ITS ---
Reason For Study: HTN Procedure This was a 2D Doppler, Color Flow transthoracic echocardiogram. Exam performed portable in ICU/CCU. Left Ventricle Normal LV size. Left ventricular systolic function is normal. The estimated ejection fraction is 65 %. No regional wall motion abnormalities noted. Right Ventricle Normal RV size. Normal systolic function. Atria Normal left atrium. Normal right atrium. Mitral Valve There is mild to moderate mitral annular calcification. Mild-Moderate (1-2+) eccentric mitral valve insufficiency. Tricuspid Valve Normal tricuspid valve. Mild tricuspid valve insufficiency. Pulmonary artery systolic pressure is 24 mmHg. Aortic Valve Trisinus/trileaflet aortic valve. Mild focal aortic valve calcification. Peak aortic valve gradient 18 mmHg. Mean aortic valve gradient 9 mmHg. Mild aortic stenosis. Pulmonic Valve Normal pulmonic valve. Great Vessels Normal aortic root. Pericardium/Pleural No pericardial effusion. MMode/2D Measurements & Calculations LVIDd: 4.7 cm IVSd: 1.1 cm LVOT diam: 2.1 cm LVIDs: 3.2 cm LVPWd: 1.1 cm LVOT area: 3.4 cm2 RVDd: 3.9 cm FS: 32.6 % Ao root diam: 3.9 cm LAV(MOD-bp): 91.5 ml LVAd ap4: 36.4 cm2 LAV(MOD-bp) Indexed: 40.4 ml/m2 EDV(MOD-sp4): 119.6 ml LAV(MOD-sp2): 88.9 ml EDV(sp4-el): 127.1 ml LAV(MOD-sp4): 64.6 ml LVAs ap4: 19.5 cm2 ESV(MOD-sp4): 50.4 ml ESV(sp4-el): 48.0 ml EF(MOD-sp4): 57.9 % EF(sp4-el): 62.3 % SV(MOD-sp4): 69.2 ml SV(sp4-el): 79.1 ml Aortic Valve Planimetry: 1.6 cm2 LA A4 area: 20.3 cm2 LA dimension(2D): 4.7 cm RA A4 area: 11.8 cm2 Doppler Measurements & Calculations Lat Peak E' Derek: 4.9 cm/sec Med Peak E' Derek: 4.5 cm/sec MV V2 max: 169.0 cm/sec MV max P.4 mmHg MV V2 mean: 81.7 cm/sec MV mean P.3 mmHg MV V2 VTI: 45.2 cm MVA(VTI): 1.8 cm2 Ao V2 max: 212.4 cm/sec LV V1 max: 99.7 cm/sec SV(LVOT): 81.6 ml Ao max P.1 mmHg LV V1 max P.0 mmHg Ao V2 mean: 145.3 cm/sec LV V1 mean P.1 mmHg Ao mean P.3 mmHg LV V1 mean: 68.0 cm/sec Ao V2 VTI: 45.4 cm LV V1 VTI: 24.1 cm RAFAT(I,D): 1.8 cm2 RAFAT(V,D): 1.6 cm2 PA V2 max: 98.0 cm/sec TR max derek: 230.9 cm/sec MV P1/2t-pr_phl: 136.8 msec TR max P.3 mmHg ECHO/Echo Complete Interpretation Summary Normal LV size. Left ventricular systolic function is normal. The estimated ejection fraction is 65 %. There is mild to moderate mitral annular calcification. Mild-Moderate (1-2+) eccentric mitral valve insufficiency. Mild focal aortic valve calcification. Mild aortic stenosis. Ordering Physician: Jessica Perez Referring Physician: Tom Crocker Performed By: Valerie Bailey RDCS, RVT
--- NOTE | 2020-11-26 04:05 | EKG12_ITS ---
Test Reason : CHEST PRESSURE Blood Pressure : / mmHG Vent. Rate : 068 BPM Atrial Rate : 068 BPM P-R Int : 218 ms QRS Dur : 078 ms QT Int : 440 ms P-R-T Axes : 052 017 031 degrees QTc Int : 467 ms Sinus rhythm with 1st degree A-V block Otherwise normal ECG Confirmed by VANESSA BRAGA, PRESTON ([id number]), assignment editor RONNELL CHERY ([id number]) on 11/29/2020 9:28:19 AM Referred By: REECE Confirmed By:PRESTON MENDEZ MD
[2020-11-26 04:54] LABS: Absolute Lymphocyte Count 1.05 X10^3/uL (0.83-4.51); Absolute Neutrophil Count 2.8 X10^3/uL (2.0-7.7); Basophil# 0.05 X10^3/uL; Basophil% 1.1 % (0-1); Differential Indicated SCAN CRITERIA MET; Eosinophil# 0.18 X10^3/uL; Eosinophils% 3.9 % (0-5); Hematocrit 37.4 % (40-54); Hemoglobin 12.4 g/dL (13.0-16.5); Lymphocyte # 1.05 X10^3/ul (4.0); Mean Corp Hgb Conc 33.2 g/dL (32-36); Mean Corpuscular Hgb 31.6 pg (27.0-32.0); Mean Corpuscular Volume 95.2 fL (80-94); Mean Platelet Vol. 10.9 fl (6.2-12.0); Monocyte# 0.43 X10^3/uL; Monocyte% 9.4 % (0-10); NRBC Flagged by Analyzer 0 % (0-5); Neutrophil # 2.83 X10^3/uL (2.7-7.7); Neutrophil % 62.2 % (47-70); POSITIVE COUNT YES; Platelet Count 157 K/mm3 (150-450); RBC Distribution Width CV 13.6 % (11.6-14.6); RBC Distribution Width SD 47.4 fl (35.1-43.9); Red Blood Count 3.93 M/mm3 (4.6-6.2); White Blood Count 4.6 K/mm3 (4.4-11.0)
--- NOTE | 2020-11-26 04:58 | CPS ---
Patient will have a family member bring in home CPAP unit for overnight. Would not like to use a hospital's machine.
[2020-11-26 05:00] LABS: Partial Thromboplast Time 28.9 Seconds (24.1-36.2); Prothrombin Time (Protime)PT. 12.7 SECONDS (11.7-14.9)
[2020-11-26 05:13] LABS: ALB/GLOB Ratio 1.2 RATIO (0.9-2.4); AST(SGOT) 24 U/L (15-37); Alanine Aminotransfer ALT/SGPT 19 U/L (16-61); Albumin, Serum 3.5 g/dL (3.2-5.0); Alkaline Phosphatase 86 U/L (45-117); Anion Gap 7 (5-15); BUN 41 mg/dL (7-18); BUN/Creat Ratio 29.7 RATIO (10-20); Chloride 106 mmol/L (98-107); Cholesterol 239 mg/dL (200); Creatinine, Serum 1.38 mg/dL (0.70-1.30); EST Glomerular Filtration Rate 54 mL/min (>60); Est Glom Filt Rate - Afr Amer 66 mL/min (>60); Estimated Creatinine Clearance 51.43 ml/min; Glucose 115 mg/dL (74-106); High Density Lipoprotein 38 mg/dL; Magnesium 1.9 mg/dL (1.6-2.6); Potassium 4.7 mmol/L (3.5-5.1); Protein, Total 6.5 g/dL (6.4-8.2); Sodium Level 137 mmol/L (136-145); Triglycerides 212 mg/dL; Very Low Density Lipoprotein 42 mg/dL (5-40)
[2020-11-26] MEDS: CARBIDOPA/LEVODOPA CR 50/200 Tablet PO ×3 (06:17→15:59)
[2020-11-26] MEDS: Pramipexole Di-HCl 0.25 MG Tablet PO ×3 (06:17→21:00)
--- NOTE | 2020-11-26 07:41 | CON.PCM_ITS ---
Reason for Consult Date of Consultation: 11/26/20 Reason for Consultation: Shortness of breath and chest pressure History of Present Illness: The patient is a 70 year old M with a history of hypertension, recently diagnosed Parkinson's disease, aortic sclerosis who presented to the emergency room with mild shortness of breath as well as palpitations and mild chest pressure. He was noted to have a markedly elevated blood pressure with systolics over 200. He was given clonidine in the emergency room and then started on a Cardene drip in the ICU. His EKG did not demonstrate any significant abnormalities. He had minimal troponin elevation. He has had an echo within the last year which demonstrated an ejection fraction which was normal and mild aortic sclerosis. He has had no dizziness or diaphoresis no near syncope or syncope. [] Past Medical History Allergies/Adverse Reactions: Allergies clindamycin Allergy (Verified 11/26/20 00:02) Swelling Sulfa (Sulfonamide Antibiotics) Allergy (Verified 11/26/20 00:02) Unknown simvastatin Adverse Reaction (Verified 11/26/20 00:02) myalgia Home Medications: Ambulatory Orders Medication Instructions Recorded Allopurinol [Zyloprim] 300 mg PO DAILY 10/18/13 Aspirin [Aspirin, Baby] 81 mg PO DAILY@0800 10/18/13 Carbidopa/Levodopa 50/200 [Sinemet 1 tab PO TIDAC 10/18/13 CR 50/200] pramipexole 0.25 mg tablet 0.25 mg PO TID tab 01/01/18 ascorbic acid (vitamin C) 1,000 mg 1,500 mg PO QDAY tab 01/03/20 tablet cholecalciferol (vitamin D3) 25 50 mcg PO DAILY 01/03/20 mcg (1,000 unit) capsule losartan 100 mg tablet 100 mg PO DAILY #90 tab 10/29/20 albuterol sulfate 90 mcg/actuation 1 inh INHALATION ONCE 11/21/20 aerosol inhaler primidone 50 mg tablet 50 mg PO BID tablet 11/21/20 tizanidine 2 mg capsule 2 mg PO TID PRN 11/21/20 carvedilol 12.5 mg tablet 12.5 mg PO BID #60 tablet 11/22/20 Triamcinolone Acetonide [Nasacort] 2 spray NS DAILY PRN 11/26/20 Past Medical History (Chronic Problems): Chronic Problems (Last Reviewed 11/22/20 @ 11:24 by Reyna ALVARADO, PA) Parkinsons disease (Chronic) PATRICIO (obstructive sleep apnea) (Chronic) Hyperlipidemia (Chronic) Essential (primary) hypertension (Chronic) Nonrheumatic aortic (valve) stenosis (Chronic) Testicular malignancy (Chronic) Right testicular resection due to malignant tumor with lymph nodes removed Surgical History: - - Tonsillectomy, testicular resection, right secondary to malignancy. Psychiatric History: No pertinent psych hx - *Family History Maternal Family History: Family History (Last Reviewed 11/22/20 @ 11:24 by Reyna ALVARADO, PA) Father CAD (coronary artery disease) Sudden cardiac , Onset Age: 59 Myocardial infarction, Onset Age: 59 Hypertension Mother Heart disease Hypertension Brother Sudden cardiac , Onset Age: 68 History Items: High Cholesterol, Heart Disease, Hypertension Paternal Family History: Family History (Last Reviewed 11/22/20 @ 11:24 by Reyna ALVARADO, PA) Father CAD (coronary artery disease) Sudden cardiac , Onset Age: 59 Myocardial infarction, Onset Age: 59 Hypertension Mother Heart disease Hypertension Brother Sudden cardiac , Onset Age: 68 History Items: High Cholesterol, Heart Disease, Hypertension Lives: Spouse/ Significant Other Smoking Status: Never smoker Tobacco Use: Non-smoker Alcohol: None Drugs: None Review of Systems - Review of Systems General: Denies: Fever, Night Sweats, Fatigue HEENT: Denies: Vision Change Cardiovascular: Reports: Chest Discomfort. Denies: Shortness of Breath, Orthopnea, PND, Peripheral Edema, Palpitations, Lightheadedness, Dizziness, Near Syncope, Syncope Respiratory: Denies: Cough, Sputum Production, Hemoptysis Gastrointestinal: Denies: Hematemesis, Hematochezia, Melena Genitourinary: Denies: Dysuria, Hematuria Muscoloskeletal: Denies: Myalgias Skin: Denies: Rash Neurological: Denies: Dizziness Subjectve: Patient seen and evaluated Objective: Vital Signs Temp Pulse Resp BP Pulse Ox 97.4 F L 85 17 130/83 H 99 11/26/20 04:30 11/26/20 07:00 11/26/20 07:00 11/26/20 07:00 11/26/20 07:00 Oxygen Delivery Method Room Air Weight: 243 lb 9.773 oz Body Mass Index (BMI) 34.9 Intake and Output for Last 24 Hours 11/24/20 11/25/20 11/26/20 23:59 23:59 23:59 Intake Total 162.50 / 162.50 Output Total 500 / 500 Balance -337.50 / -337.50 General: Awake, Alert, Oriented x 3 HEENT: PERRL, EOMI, Sclera Non Icteric Neck: Supple, Good ROM, No Lymph Node Enlargement Lungs: Clear to auscultation Cardiovascular: Regular Rhythm, Normal S1, Normal S2, No Murmurs, No Rubs, No G allops Vascular: No Carotid Bruits, Normal Femoral Pulses, Normal Radial Pulses, Normal Dorsalis Pedal Pulse, Normal Posterior Tibial Pulses Abdomen: Bowel Sounds Present, Soft, Non Tender, No HSM, No Organomegaly Extremities: No Cyanosis, No Clubbing, No edema Musculoskeletal: No Erythema Skin: No Rashes Lymphatic: No Lymph Node Enlargement Neurological: No Focal Motor or Sensory Deficit Psych/Mental Status: Appropriate 11/26/20 01:30: WBC 4.7, RBC 3.98 L, Hgb 12.4 L, Hct 36.9 L, MCV 92.7, MCH 31.2, MCHC 33.6, Plt Count 159, MPV 10.6, Immature Gran % (Auto) 0.600, Neut % (Auto) 62.5, Lymph % (Auto) 21.5, [place] % (Auto) 10.0, Eos % (Auto) 4.5, Baso % (Auto) 0.9, Absolute Neuts (auto) 2.9, Nucleated RBC % 0 11/26/20 01:30: Sodium 136, Potassium 4.9, Chloride 104, Carbon Dioxide 27.0, Anion Gap 5, BUN 42 H, Creatinine 1.28, Est GFR (MDRD) Af Amer 72, Est GFR (MDRD) Non-Af 59 L, BUN/Creatinine Ratio 32.8 H, Glucose 112 H, Calcium 8.9, Troponin I 0.215 H 11/26/20 01:30: B-Natriuretic Peptide 80.5 11/26/20 04:40: WBC 4.6, RBC 3.93 L, Hgb 12.4 L, Hct 37.4 L, MCV 95.2 H, MCH 31.6, MCHC 33.2, Plt Count 157, MPV 10.9, Immature Gran % (Auto) 0.400, Neut % (Auto) 62.2, Lymph % (Auto) 23.0, [place] % (Auto) 9.4, Eos % (Auto) 3.9, Baso % (Auto) 1.1 H, Absolute Neuts (auto) 2.8, Nucleated RBC % 0 11/26/20 04:40: Sodium 137, Potassium 4.7, Chloride 106, Carbon Dioxide 24.0, Anion Gap 7, BUN 41 H, Creatinine 1.38 H, Est GFR (MDRD) Af Amer 66, Est GFR (MDRD) Non-Af 54 L, BUN/Creatinine Ratio 29.7 H, Glucose 115 H, Calcium 9.0, Magnesium 1.9, Total Bilirubin 0.30, Triglycerides 212 H, Cholesterol 239 H, LDL Cholesterol 159 H, VLDL Cholesterol 42 H, HDL Cholesterol 38 L 11/26/20 04:40: PT 12.7, INR 1.0, APTT 28.9 11/26/20 04:40: Troponin I 0.197 H Rhythm: EKG: NSR ECHO: Stress Test: Cardiac Cath: PCI: CT Surgery: Holter monitor: EPS: PPM: CXR: Chest CT Scan: Assessment/Plan 1. Severe Hypertension- * His blood pressure is uncontrolled at this time. However in the intensive care unit it has been better controlled. I will suggest that we make some adjustments to his blood pressure medications. * I would recommend adding amlodipine 10 mg a day * Increase carvedilol to 25 mg twice a day * Add hydrochlorothiazide 25 mg once a day * DC Lasix * Continue losartan * Repeat echocardiogram to assess ventricular function * 2. Aortic sclerosis * He does have mild aortic sclerosis and stenosis. I will recommend that we repeat his echocardiogram to assess the above. * 3. Abnormal cardiac enzymes * He has mildly abnormal cardiac enzymes which I suspect is from demand ischemia. I do not think that this warrants work-up at this particular time. * * Thank you for allowing me to participate in the care of your patient. Please don't hesitate to call if any issues arise.
[2020-11-26] MEDS: Carvedilol 25 MG Tablet PO ×2 (08:02→21:00)
[2020-11-26] MEDS: Furosemide 40 MG/4 ML Vial IV (08:02)
[2020-11-26] MEDS: 0.9% Saline Lock 10 ML Syringe IV (08:14)
[2020-11-26] MEDS: Acetaminophen 325 MG Tablet 650 MG PO (08:14)
[2020-11-26] MEDS: Aspirin 81 MG TAB.CHEW PO (09:55)
[2020-11-26] MEDS: Enoxaparin 120 MG/0.8 ML Syringe SC (09:55)
[2020-11-26] MEDS: Primidone 50 MG Tablet PO ×2 (09:56→20:59)
[2020-11-26] MEDS: Cholecalciferol (VIT D3) 25 MCG TABLET (1,000 UNITS) 50 MCG PO (09:56)
[2020-11-26] MEDS: Allopurinol 300 MG Tablet PO (09:57)
--- NOTE | 2020-11-26 11:20 | PCM.PN.HOSP ---
Patient Problems: Active and Suspected Problems (Last Reviewed 11/22/20 @ 11:24 by Reyna Vaca PA, PA) Unstable angina (Acute) Palpitations (Acute) Hypertensive urgency (Acute) Chest pain (Acute) Cardiac enzymes elevated (Acute) Accelerated hypertension (Acute) Subjective: Feels well. Noted swelling in LE after starting primidone. Weaned of nicardipine gtt. Vitals/I&O's: Vital Signs Temp Pulse Resp BP Pulse Ox 36.7 C 59 L 20 H 109/78 97 11/26/20 08:00 11/26/20 11:00 11/26/20 11:00 11/26/20 11:00 11/26/20 11:00 Oxygen Delivery Method Room Air Weight: 110.5 kg Body Mass Index (BMI) 34.9 Intake and Output for Last 24 Hours 11/24/20 11/25/20 11/26/20 23:59 23:59 23:59 Intake Total 610.00 / 610.00 Output Total 1375 / 1375 Balance -765.00 / -765.00 General: Alert, No apparent distress HEENT: Atraumatic, Normocephalic Oral: Moist Mucosa, No Gingival or Mucosal Lesions/ Ulcerations Neck: No Nodes, Thyroid Normal Size and Texture Lungs: Clear to auscultation, Normal air movement, No rhonchi, No wheeze, No rales Cardiovascular: Regular rate, Regular Rhythm, Normal S1, Normal S2, No murmurs Abdomen: Bowel Sounds Present, Soft, Non Tender, Non-Distended Extremities: No edema, No Calf Tenderness Skin: No rashes, No breakdown Psych/Mental Status: Normal Affect, Appropriate Laboratory Results 11/26/20 01:30: WBC 4.7, RBC 3.98 L, Hgb 12.4 L, Hct 36.9 L, MCV 92.7, MCH 31.2, MCHC 33.6, RDW Std Deviation 46.4 H, RDW Coeff of Nir 13.6, Plt Count 159, MPV 10.6, Immature Gran % (Auto) 0.600, Neut % (Auto) 62.5, Lymph % (Auto) 21.5, [place] % (Auto) 10.0, Eos % (Auto) 4.5, Baso % (Auto) 0.9, Absolute Neuts (auto) 2.9, Absolute Lymphs (auto) 1.01, Nucleated RBC % 0 11/26/20 01:30: Sodium 136, Potassium 4.9, Chloride 104, Carbon Dioxide 27.0, Anion Gap 5, BUN 42 H, Creatinine 1.28, Estim Creat Clear Calc 55.45, Est GFR (MDRD) Af Amer 72, Est GFR (MDRD) Non-Af 59 L, BUN/Creatinine Ratio 32.8 H, Glucose 112 H, Calcium 8.9, Troponin I 0.215 H 11/26/20 01:30: B-Natriuretic Peptide 80.5 11/26/20 04:40: WBC 4.6, RBC 3.93 L, Hgb 12.4 L, Hct 37.4 L, MCV 95.2 H, MCH 31.6, MCHC 33.2, RDW Std Deviation 47.4 H, RDW Coeff of Nir 13.6, Plt Count 157, MPV 10.9, Immature Gran % (Auto) 0.400, Neut % (Auto) 62.2, Lymph % (Auto) 23.0, [place] % (Auto) 9.4, Eos % (Auto) 3.9, Baso % (Auto) 1.1 H, Absolute Neuts (auto) 2.8, Absolute Lymphs (auto) 1.05, Nucleated RBC % 0 11/26/20 04:40: Sodium 137, Potassium 4.7, Chloride 106, Carbon Dioxide 24.0, Anion Gap 7, BUN 41 H, Creatinine 1.38 H, Estim Creat Clear Calc 51.43, Est GFR (MDRD) Af Amer 66, Est GFR (MDRD) Non-Af 54 L, BUN/Creatinine Ratio 29.7 H, Glucose 115 H, Calcium 9.0, Magnesium 1.9, Total Bilirubin 0.30, AST 24, ALT 19, Alkaline Phosphatase 86, Total Protein 6.5, Albumin 3.5, Globulin 3.0, Albumin/Globulin Ratio 1.2, Triglycerides 212 H, Cholesterol 239 H, LDL Cholesterol 159 H, VLDL Cholesterol 42 H, HDL Cholesterol 38 L 11/26/20 04:40: PT 12.7, INR 1.0, APTT 28.9 11/26/20 04:40: Troponin I 0.197 H Current Medications Acetaminophen (Acetaminophen 325 Mg Tablet) 650 mg PO Q6H PRN PRN PRN Reason: Pain Score 1-10/Temp > 100.7 F Last Admin: 11/26/20 08:14 Dose: 650 mg Documented by: Al Hydroxide/Mg Hydroxide (Mag Hydrox/Al Hydrox/Simeth 30 Ml Udc) 30 ml PO Q6H PRN PRN PRN Reason: Gastric Burning Albuterol Sulfate (Albuterol 2.5 Mg/3 Ml Vial.Neb.) 2.5 mg INHALATION Q2H PRN PRN PRN Reason: Dyspnea, wheezing Allopurinol (Allopurinol 300 Mg Tablet) 300 mg PO DAILY [facility] Last Admin: 11/26/20 09:57 Dose: 300 mg Documented by: Amlodipine Besylate (Amlodipine 10 Mg Tablet) 10 mg PO DAILY [facility] Aspirin (Aspirin 81 Mg Tab.Chew) 81 mg PO DAILY@0800 [facility] Last Admin: 11/26/20 09:55 Dose: 81 mg Documented by: Carbidopa/Levodopa (Carbidopa/Levodopa Cr 50/200 Tablet) 1 tablet PO TIDAC [facility] Last Admin: 11/26/20 06:17 Dose: 1 tablet Documented by: Carvedilol (Carvedilol 25 Mg Tablet) 25 mg PO BID [facility] Last Admin: 11/26/20 08:02 Dose: 25 mg Documented by: Cholecalciferol (Cholecalciferol (Vit D3) 25 Mcg Tablet (1,000 Units)) 50 mcg PO DAILY [facility] Last Admin: 11/26/20 09:56 Dose: 50 mcg Documented by: Enoxaparin Sodium (Enoxaparin 120 Mg/0.8 Ml Syringe) 120 mg SC Q12 [facility] Last Admin: 11/26/20 09:55 Dose: 120 mg Documented by: Fluticasone Propionate (Fluticasone 0.05% 1 [place] Nasal.Sry) 2 spray NASAL DAILY PRN PRN Reason: ALLERGIES Guaifenesin (Guaifenesin 10 Ml Udc (200mg/10ml)) 10 ml PO Q4H PRN PRN PRN Reason: COUGH Hydralazine HCl (Hydralazine 20 Mg/Ml Vial) 10 mg IV Q4H PRN PRN PRN Reason: SBP > 160 Hydrochlorothiazide (Hydrochlorothiazide 25 Mg Tablet) 25 mg PO DAILY [facility] Nicardipine HCl 25 mg/ Sodium (Chloride) 250 mls @ 50 mls/hr CONT INF .Q5H [facility]; Protocol Last Titration: 11/26/20 11:04 Dose: Infused Documented by: Sodium Chloride () 250 mls @ 15 mls/hr IV .[id number] PRN PRN Reason: Saline Flush Sodium Chloride () 250 mls @ 15 mls/hr IV .[id number] PRN PRN Reason: Additional IVPB Infusion Losartan Potassium (Losartan Potassium 100 Mg Tablet) 100 mg PO DAILY [facility] Magnesium Hydroxide (Magnesium Hydroxide 30 Ml Udc) 30 ml PO DAILY PRN PRN PRN Reason: Constipation Melatonin (Melatonin 3 Mg Tablet) 3 mg PO QHS PRN PRN PRN Reason: INSOMNIA Nitroglycerin (Nitroglycerin Oint 1 Inch Packet) 0.5 inch TD Q6 [facility] Last Admin: 11/26/20 05:19 Dose: Not Given Documented by: Ondansetron HCl (Ondansetron 4 Mg/2 Ml Vial) 4 mg IV Q8H PRN PRN PRN Reason: NAUSEA/VOMITING Pramipexole Dihydrochloride (Pramipexole Di-Hcl 0.25 Mg Tablet) 0.25 mg PO TID [facility] Last Admin: 11/26/20 06:17 Dose: 0.25 mg Documented by: Primidone (Primidone 50 Mg Tablet) 50 mg PO BID [facility] Last Admin: 11/26/20 09:56 Dose: 50 mg Documented by: Prochlorperazine Edisylate (Prochlorperazine 10 Mg/2 Ml Vial) 5 mg IV Q4H PRN PRN PRN Reason: Breakthrough Nausea/Vomiting Psyllium Hydrophilic Mucilloid (Psyllium 1 Packet) 1 packet PO DAILY PRN PRN PRN Reason: Constipation Senna/Docusate Sodium (Senna/Docusate Sodium 1 Tablet) 2 tablet PO BID PRN PRN PRN Reason: Constipation Sodium Chloride (0.9% Saline Lock 10 Ml Syringe) 10 - 40 ml IV UD PRN PRN Reason: SALINE FLUSH Last Admin: 11/26/20 08:14 Dose: 10 ml Documented by: Throat Lozenges (Benzocaine/Menthol 1 Lozenge) 1 lozenge MUCOUS MEM Q2H PRN PRN PRN Reason: SORE THROAT Tizanidine HCl (Tizanidine Hcl 2 Mg Tablet) 2 mg PO TID PRN PRN Reason: BACK/LEG PAIN STROKE Vital Signs/Narrative: Vital Signs Temp Pulse Resp BP BP Pulse Ox 11/26/20 11:00 59 L 20 H 109/78 97 11/26/20 10:00 65 15 113/76 97 11/26/20 09:00 74 20 H 127/81 H 97 11/26/20 08:45 118/84 H 11/26/20 08:30 147/88 H 11/26/20 08:15 137/79 H 11/26/20 08:00 36.7 C 72 15 129/78 H 97 11/26/20 07:45 137/86 H Medical Necessity - Tobacco Use Smoking Status: Never smoker Tobacco Use: Non-smoker Assessment/Plan All Active Problems (Last Reviewed 11/22/20 @ 11:24 by Reyna Vaca PA, PA) Unstable angina (Acute) Palpitations (Acute) Hypertensive urgency (Acute) Chest pain (Acute) Cardiac enzymes elevated (Acute) Accelerated hypertension (Acute) Nonrheumatic mitral (valve) stenosis (Ruled-out) 1. Hypertensive urgency improved weaned off nicardipine gtt improved plan: continue carvedilol 25 BID, losartan 100 daily. HCTZ 25, amlodipine 10 plan to monitor overnight to ensure stability. caution with parkinson's disease given possible autonomic insufficiency. 2. elevated troponins likely 2/2 demand from HTN urgency no additional work up per cardiology DC anticoagulation check echo 3. parkinon's disease chronic on carbidopa/levodopa follow up with Dr. Back (neurology) 4. VTE prophylaxis: LMWH Procedures: Other Procedure - See Report - non billable rounding as pt admitted after midnight.
--- NOTE | 2020-11-26 11:45 | CASEMGMT ---
TRUDY ARECHIGA Face to Face with patient for initial transition planning/care coordination assessment. RN CM introduced self and role at [facility]. Patient lying in bed, alert and oriented. Patient willing to participate in assessment and is able to answer all questions appropriately. Care providers, pharmacy, and demographics verified. Patient wishes to discharge home, denies need for home health at this time. Patient states he has no further needs or concerns at this time. CM to follow for discharge planning needs that may arise. PCP: [facility] Specialists: Nazanin, neurologist; Padmaja, grants director; Ginna, sales operations consultant Preferred Pharmacy: [facility] Insurance: [employer] Prescription Benefit: yes Living Will/HPOA: yes Ester Abbott LNOK: , son Living Arrangements: Patient lives with in a 1.5 story home. Patient has railing to upstairs. Patient states he is independent and able to ambulate stairs. Transportation: self/ DME/HHC: Patient states he has cane, crutches, and cpap at home. Patient denies previous HHC or SNF. Disposition Plan: Patient to discharge home with family support and follow-up plans in place. Ashely GARNICA, RN, CM
[2020-11-26] MEDS: hydroCHLOROthiazide 25 MG Tablet PO (11:48)
[2020-11-26] MEDS: Losartan Potassium 100 MG Tablet PO (11:48)
--- NOTE | 2020-11-26 12:09 | NURSING ---
report called to [employer], Priscila
--- NOTE | 2020-11-26 12:35 | NURSING ---
to [id number] per WC, ICU staff in attendance
[2020-11-26] MEDS: amLODIPine 10 MG Tablet PO (14:00)
--- NOTE | 2020-11-26 17:05 | NURSING ---
Handoff completed with Judith Martin RN. This RN will be taking over pt care at this time.
[2020-11-27] VITALS (7 sets, daily range): BP systolic 111–156; BP diastolic 69–88; PULSE 57–83; RESP 16–18; TEMP 36.6–36.7; O2SAT 90–99
[2020-11-27] MEDS: Pramipexole Di-HCl 0.25 MG Tablet PO (06:22)
[2020-11-27] MEDS: CARBIDOPA/LEVODOPA CR 50/200 Tablet PO ×2 (06:22→10:56)
[2020-11-27] MEDS: Enoxaparin 40 MG/0.4 ML Syringe SC (06:26)
--- NOTE | 2020-11-27 07:56 | PN.CARD_ITS ---
Subjectve: Patient seen and evaluated. Objective: Vital Signs Temp Pulse Resp BP Pulse Ox 98.1 F 63 18 156/88 H 90 11/27/20 06:20 11/27/20 07:01 11/27/20 06:20 11/27/20 06:20 11/27/20 07:26 Oxygen Delivery Method Room Air Weight: 245 lb 5.992 oz Body Mass Index (BMI) 34.9 Intake and Output for Last 24 Hours 11/25/20 11/26/20 11/27/20 23:59 23:59 23:59 Intake Total 1250.00 / 1250.00 Output Total 1375 / 1375 Balance -125.00 / -125.00 General: Awake, Alert, Oriented x 3 HEENT: PERRL, EOMI, Sclera Non Icteric Neck: Supple, Good ROM, No Lymph Node Enlargement Lungs: Clear to auscultation Cardiovascular: Regular Rhythm, Normal S1, Normal S2, No Murmurs, No Rubs, No Gallops Vascular: No Carotid Bruits, Normal Femoral Pulses, Normal Radial Pulses, Normal Dorsalis Pedal Pulse, Normal Posterior Tibial Pulses Abdomen: Bowel Sounds Present, Soft, Non Tender, No HSM, No Organomegaly Extremities: No Cyanosis, No Clubbing, Trace LLE Edema Musculoskeletal: No Erythema Skin: No Rashes Lymphatic: No Lymph Node Enlargement Neurological: No Focal Motor or Sensory Deficit Psych/Mental Status: Appropriate Rhythm: EKG: ECHO: Stress Test: Cardiac Cath: PCI: CT Surgery: Holter monitor: EPS: PPM: CXR: Chest CT Scan: Medical Necessity - Tobacco Use Smoking Status: Never smoker Tobacco Use: Non-smoker Assessment/Plan 1. Severe Hypertension- * His blood pressure is better controlled at this particular time. His echocardiogram did not demonstrate any significant abnormalities other than mild aortic sclerosis and preserved ejection fraction. * Will recommend continuing current medical therapy * Will follow up as outpatient * Salt restriction emphasized 2. Aortic sclerosis * He does have mild aortic sclerosis and stenosis. * 3. Abnormal cardiac enzymes * He has mildly abnormal cardiac enzymes which I suspect is from demand isch emia. I do not think that this warrants work-up at this particular time. * * Thank you for allowing me to participate in the care of your patient. Please don't hesitate to call if any issues arise.
[2020-11-27] MEDS: Cholecalciferol (VIT D3) 25 MCG TABLET (1,000 UNITS) 50 MCG PO (09:31)
[2020-11-27] MEDS: Allopurinol 300 MG Tablet PO (09:31)
[2020-11-27] MEDS: Aspirin 81 MG TAB.CHEW PO (09:32)
[2020-11-27] MEDS: hydroCHLOROthiazide 25 MG Tablet PO (09:32)
[2020-11-27] MEDS: Primidone 50 MG Tablet PO (09:32)
[2020-11-27] MEDS: amLODIPine 10 MG Tablet PO (10:56)
[2020-11-27] MEDS: Carvedilol 25 MG Tablet PO (10:56)
[2020-11-27] MEDS: Losartan Potassium 100 MG Tablet PO (10:56)
--- NOTE | 2020-11-27 11:51 | PCM.DC ---
- Discharge Diagnoses Current Active Problems: Current Active and Chronic Problems (Last Reviewed 11/22/20 @ 11:24 by Reyna ALVARADO, PA) Parkinsons disease (Chronic) Unstable angina (Acute) Palpitations (Acute) Hypertensive urgency (Acute) Chest pain (Acute) Cardiac enzymes elevated (Acute) PATRICIO (obstructive sleep apnea) (Chronic) Hyperlipidemia (Chronic) Accelerated hypertension (Acute) Essential (primary) hypertension (Chronic) Nonrheumatic aortic (valve) stenosis (Chronic) Testicular malignancy (Chronic) Right testicular resection due to malignant tumor with lymph nodes removed You will use the following diet at home:: Cardiac, Other - Sodium restriction Discharge Activity: Return to Normal Activity Call your doctor if you observe: Shortness of breath, Dizziness, Fainting spells, Chest pain Additional Instructions: Hold blood pressure medication for systolic blood pressure less than 100. If systolic blood pressure (top number) is less than 100, recommend repeating in 1 hour. If blood pressure is over 100 at that time, resume normal medications. Allergies/Adverse Reactions: Allergies clindamycin Allergy (Verified 11/26/20 00:02) Swelling Sulfa (Sulfonamide Antibiotics) Allergy (Verified 11/26/20 00:02) Unknown simvastatin Adverse Reaction (Verified 11/26/20 00:02) myalgia Medications to take at Discharge Allopurinol [Zyloprim] 300 mg PO DAILY 10/18/13 Aspirin [Aspirin, Baby] 81 mg PO DAILY@0800 10/18/13 Carbidopa/Levodopa 50/200 [Sinemet CR 50/200] 1 tab PO TIDAC 10/18/13 pramipexole 0.25 mg tablet 0.25 mg PO TID tab 01/01/18 ascorbic acid (vitamin C) 1,000 mg tablet 1,500 mg PO QDAY tab 01/03/20 cholecalciferol (vitamin D3) 25 mcg (1,000 unit) capsule 50 mcg PO DAILY 01/03/20 losartan 100 mg tablet 100 mg PO DAILY #90 tab 10/29/20 albuterol sulfate 90 mcg/actuation aerosol inhaler 1 inh INHALATION ONCE 11/21/20 primidone 50 mg tablet 50 mg PO BID tablet 11/21/20 tizanidine 2 mg capsule 2 mg PO TID PRN 11/21/20 Triamcinolone Acetonide [Nasacort] 2 spray NS DAILY PRN 11/26/20 Amlodipine [Norvasc] 10 mg PO DAILY #30 tablet 11/27/20 Carvedilol [Coreg (Beta [place])] 25 mg PO BID #60 tablet 11/27/20 Hydrochlorothiazide [Hctz] 25 mg PO DAILY #30 tablet 11/27/20 The following prescriptions were given: Carvedilol [Coreg (Beta [place])] 25 mg PO BID #60 tablet Transmission Status: Pending to [id number] Hydrochlorothiazide [Hctz] 25 mg PO DAILY #30 tablet Transmission Status: Pending to [facility] Amlodipine [Norvasc] 10 mg PO DAILY #30 tablet Transmission Status: Pending to [id number] Primary Care Physician: Tom Crocker DO [Primary Care Provider] - Please follow up with your Primary Care Physician in: 1 Week Test Results: Test results from this visit will be discussed in further detail at your follow-up appointment, if applicable. Please Follow Up With: Federico Chacko MD When: As scheduled 01/03/2021 Proposed Discharge Date: 11/27/20
--- NOTE | 2020-11-27 12:13 | PCM.DC.SUM ---
<BrennonSoo [employer] - Last Filed: 11/27/20 12:20> Discharge Date and Diagnosis - Problem List Patient Problems: Active and Suspected Problems (Last Reviewed 11/22/20 @ 11:24 by Reyna ALVARADO, PA) Unstable angina (Acute) Palpitations (Acute) Hypertensive urgency (Acute) Chest pain (Acute) Cardiac enzymes elevated (Acute) Accelerated hypertension (Acute) Date of Admission: 11/26/20 Date of Discharge: 11/27/20 - Primary Discharge Diagnosis Acute Problems: Active Problems (Last Reviewed 11/22/20 @ 11:24 by Reyna ALVARADO, PA) 1. Hypertensive urgency 2. Elevated troponin 3. Parkinson's disease 4. Valvular heart disease 5. Hyperlipidemia 6. Chronic kidney disease stage IIIa 7. Gout 8. Obesity 9. PATRCIIO 10. History of testicular cancer-status post resection. - Secondary Discharge Diagnosis Chronic Problems: Chronic Problems (Last Reviewed 11/22/20 @ 11:24 by Reyna ALVARADO, PA) Parkinsons disease (Chronic) PATRICIO (obstructive sleep apnea) (Chronic) Hyperlipidemia (Chronic) Essential (primary) hypertension (Chronic) Nonrheumatic aortic (valve) stenosis (Chronic) Testicular malignancy (Chronic) Right testicular resection due to malignant tumor with lymph nodes removed Hospital Course and Treatment Imaging Results: Diagnostic Data Chest X-Ray 11/26/20 01:32 IMPRESSION: Normal x-ray examination of the chest. Electronically Signed: Tari Marrufo MD at 2:39 EDT Tel , Service support , Echocardiogram 11/26/20 04:05 Interpretation Summary Normal LV size. Left ventricular systolic function is normal. The estimated ejection fraction is 65 %. There is mild to moderate mitral annular calcification. Mild-Moderate (1-2+) eccentric mitral valve insufficiency. Mild focal aortic valve calcification. Mild aortic stenosis. Ordering Physician: Jessica Perez Referring Physician: Tom Crocker Performed By: Valerie Bailey, KENDALL, RVT Dr. Chacko- Cardiology Operations: None Procedures: 2-D Echocardiogram Summary of Care Provided: The patient is a 70 year old M admitted 11/26/2020 due to chest pain, palpitations and elevated blood pressure. 1. Hypertensive urgency-initially placed on nicardipine drip. Blood pressure is now stable. Continue carvedilol 25 mg twice daily, losartan 100 mg daily, HCTZ 25 mg daily and amlodipine 10 mg daily. Discussed with patient hold parameters. Echocardiogram with EF 65%, mild to moderate mitral valve insufficiency, mild aortic stenosis. Patient has upcoming follow-up with cardiology 01/03/2021. 2. Elevated troponin-demand ischemia related to #1. 3. Parkinson's disease-on Sinemet, pramipexole, primidone. 4. Valvular heart disease-echocardiogram demonstrates an EF of 65%, mild to moderate mitral valve insufficiency, mild aortic stenosis. 5. Hyperlipidemia-allergy to statin. 6. Chronic kidney disease stage IIIa-at baseline. 7. Gout-on allopurinol. 8. Obesity-encouraged diet and lifestyle modifications. 9. PATRICIO-continue home CPAP regimen. 10. History of testicular cancer-status post resection. Patient seen and examined prior to discharge. Physical assessment as noted below. Patient is stable for discharge with follow up recommendations as noted above. This patient was seen by LILIANA Lee under the supervision of Dr. Morales. Patient Problems: Active and Suspected Problems (Last Reviewed 11/22/20 @ 11:24 by Reyna ALVARADO, PA) Unstable angina (Acute) Palpitations (Acute) Hypertensive urgency (Acute) Chest pain (Acute) Cardiac enzymes elevated (Acute) Accelerated hypertension (Acute) - Physical Exam Vitals/I&O's: Vital Signs Temp Pulse Resp BP Pulse Ox 97.8 F 63 18 127/75 H 99 11/27/20 10:55 11/27/20 10:55 11/27/20 10:55 11/27/20 10:55 11/27/20 10:55 Oxygen Delivery Method Room Air Weight: 245 lb 5.992 oz Body Mass Index (BMI) 34.9 Intake and Output for Last 24 Hours 11/25/20 11/26/20 11/27/20 23:59 23:59 23:59 Intake Total 1250.00 / 1250.00 Output Total 1375 / 1375 Balance -125.00 / -125.00 General: Alert, Oriented x3, Cooperative HEENT: Atraumatic, PERRLA, EOMI, Normocephalic Neck: Supple, No JVD, Negative Carotid Bruits Lungs: Clear to auscultation, Normal air movement Cardiovascular: Regular rate, No murmurs Abdomen: Bowel Sounds Present, Soft, Non Tender Extremities: No edema, Capillary Refill Less than 3 Seconds Skin: No rashes, No breakdown Musculoskeletal: No Tenderness to Palpation of Joints or Extremities Neurological: Cranial nerves II-XII grossly intact, Neuro grossly intact Psych/Mental Status: Normal Affect, Appropriate Current Medications Acetaminophen (Acetaminophen 325 Mg Tablet) 650 mg PO Q6H PRN PRN PRN Reason: Pain Score 1-10/Temp > 100.7 F Last Admin: 11/26/20 08:14 Dose: 650 mg Documented by: Al Hydroxide/Mg Hydroxide (Mag Hydrox/Al Hydrox/Simeth 30 Ml Udc) 30 ml PO Q6H PRN PRN PRN Reason: Gastric Burning Albuterol Sulfate (Albuterol 2.5 Mg/3 Ml Vial.Neb.) 2.5 mg INHALATION Q2H PRN PRN PRN Reason: Dyspnea, wheezing Allopurinol (Allopurinol 300 Mg Tablet) 300 mg PO DAILY [facility] Last Admin: 11/27/20 09:31 Dose: 300 mg Documented by: Amlodipine Besylate (Amlodipine 10 Mg Tablet) 10 mg PO DAILY [facility] Last Admin: 11/27/20 10:56 Dose: 10 mg Documented by: Aspirin (Aspirin 81 Mg Tab.Chew) 81 mg PO DAILY@0800 [facility] Last Admin: 11/27/20 09:32 Dose: 81 mg Documented by: Carbidopa/Levodopa (Carbidopa/Levodopa Cr 50/200 Tablet) 1 tablet PO TIDAC [facility] Last Admin: 11/27/20 10:56 Dose: 1 tablet Documented by: Carvedilol (Carvedilol 25 Mg Tablet) 25 mg PO BID [facility] Last Admin: 11/27/20 10:56 Dose: 25 mg Documented by: Cholecalciferol (Cholecalciferol (Vit D3) 25 Mcg Tablet (1,000 Units)) 50 mcg PO DAILY [facility] Last Admin: 11/27/20 09:31 Dose: 50 mcg Documented by: Enoxaparin Sodium (Enoxaparin 40 Mg/0.4 Ml Syringe) 40 mg SC DAILY@0600 [facility] Last Admin: 11/27/20 06:26 Dose: 40 mg Documented by: Fluticasone Propionate (Fluticasone 0.05% 1 [place] Nasal.Sry) 2 spray NASAL DAILY PRN PRN Reason: ALLERGIES Guaifenesin (Guaifenesin 10 Ml Udc (200mg/10ml)) 10 ml PO Q4H PRN PRN PRN Reason: COUGH Hydralazine HCl (Hydralazine 20 Mg/Ml Vial) 10 mg IV Q4H PRN PRN PRN Reason: SBP > 160 Hydrochlorothiazide (Hydrochlorothiazide 25 Mg Tablet) 25 mg PO DAILY [facility] Last Admin: 11/27/20 09:32 Dose: 25 mg Documented by: Sodium Chloride () 250 mls @ 15 mls/hr IV .[id number] PRN PRN Reason: Saline Flush Sodium Chloride () 250 mls @ 15 mls/hr IV .[id number] PRN PRN Reason: Additional IVPB Infusion Losartan Potassium (Losartan Potassium 100 Mg Tablet) 100 mg PO DAILY [facility] Last Admin: 11/27/20 10:56 Dose: 100 mg Documented by: Magnesium Hydroxide (Magnesium Hydroxide 30 Ml Udc) 30 ml PO DAILY PRN PRN PRN Reason: Constipation Melatonin (Melatonin 3 Mg Tablet) 3 mg PO QHS PRN PRN PRN Reason: INSOMNIA Ondansetron HCl (Ondansetron 4 Mg/2 Ml Vial) 4 mg IV Q8H PRN PRN PRN Reason: NAUSEA/VOMITING Pramipexole Dihydrochloride (Pramipexole Di-Hcl 0.25 Mg Tablet) 0.25 mg PO TID [facility] Last Admin: 11/27/20 06:22 Dose: 0.25 mg Documented by: Primidone (Primidone 50 Mg Tablet) 50 mg PO BID [facility] Last Admin: 11/27/20 09:32 Dose: 50 mg Documented by: Prochlorperazine Edisylate (Prochlorperazine 10 Mg/2 Ml Vial) 5 mg IV Q4H PRN PRN PRN Reason: Breakthrough Nausea/Vomiting Psyllium Hydrophilic Mucilloid (Psyllium 1 Packet) 1 packet PO DAILY PRN PRN PRN Reason: Constipation Senna/Docusate Sodium (Senna/Docusate Sodium 1 Tablet) 2 tablet PO BID PRN PRN PRN Reason: Constipation Sodium Chloride (0.9% Saline Lock 10 Ml Syringe) 10 - 40 ml IV UD PRN PRN Reason: SALINE FLUSH Last Admin: 11/26/20 08:14 Dose: 10 ml Documented by: Throat Lozenges (Benzocaine/Menthol 1 Lozenge) 1 lozenge MUCOUS MEM Q2H PRN PRN PRN Reason: SORE THROAT Tizanidine HCl (Tizanidine Hcl 2 Mg Tablet) 2 mg PO TID PRN PRN Reason: BACK/LEG PAIN Discharge Diet: Low fat/ Low Cholesterol, 2000 mg Sodium Diet Discharge Activity: Return to Normal Activity Call your doctor if you observe: Shortness of breath, Dizziness, Fainting spells, Chest pain Home Medications: Medications to take at Discharge Allopurinol [Zyloprim] 300 mg PO DAILY 10/18/13 Aspirin [Aspirin, Baby] 81 mg PO DAILY@0800 10/18/13 Carbidopa/Levodopa 50/200 [Sinemet CR 50/200] 1 tab PO TIDAC 10/18/13 pramipexole 0.25 mg tablet 0.25 mg PO TID tab 01/01/18 ascorbic acid (vitamin C) 1,000 mg tablet 1,500 mg PO QDAY tab 01/03/20 cholecalciferol (vitamin D3) 25 mcg (1,000 unit) capsule 50 mcg PO DAILY 01/03/20 losartan 100 mg tablet 100 mg PO DAILY #90 tab 10/29/20 albuterol sulfate 90 mcg/actuation aerosol inhaler 1 inh INHALATION ONCE 11/21/20 primidone 50 mg tablet 50 mg PO BID tablet 11/21/20 tizanidine 2 mg capsule 2 mg PO TID PRN 11/21/20 Triamcinolone Acetonide [Nasacort] 2 spray NS DAILY PRN 11/26/20 Amlodipine [Norvasc] 10 mg PO DAILY #30 tablet 11/27/20 Carvedilol [Coreg (Beta [place])] 25 mg PO BID #60 tablet 11/27/20 Hydrochlorothiazide [Hctz] 25 mg PO DAILY #30 tablet 11/27/20 Following Prescriptions Were Given to Patient: Carvedilol [Coreg (Beta [place])] 25 mg PO BID #60 tablet Transmission Status: Received by [id number] Hydrochlorothiazide [Hctz] 25 mg PO DAILY #30 tablet Transmission Status: Received by [facility] Amlodipine [Norvasc] 10 mg PO DAILY #30 tablet Transmission Status: Received by [facility] Primary Care Physician: Tom Crocker DO [Primary Care Provider] - Please follow up with your Primary Care Physician in: 1 Week Please Follow Up With: Federico Chacko MD When: As scheduled 01/03/2021 Disposition: Home Minutes spent on discharge:: 35 Patient Condition:: Stable Medical Necessity - Tobacco Use Smoking Status: Never smoker Tobacco Use: Non-smoker Meaningful Use Info Meaningful Use Diagnoses (Choose all that apply): None applicable <Almas Morales - Last Filed: 11/27/20 13:15> Discharge Date and Diagnosis - Primary Discharge Diagnosis Acute Problems: Active Problems (Last Reviewed 11/22/20 @ 11:24 by Reyna ALVARADO, PA) Unstable angina (Acute) Palpitations (Acute) Hypertensive urgency (Acute) Chest pain (Acute) Cardiac enzymes elevated (Acute) Accelerated hypertension (Acute) - Secondary Discharge Diagnosis Chronic Problems: Chronic Problems (Last Reviewed 11/22/20 @ 11:24 by Reyna ALVARADO PA) Parkinsons disease (Chronic) PATRICIO (obstructive sleep apnea) (Chronic) Hyperlipidemia (Chronic) Essential (primary) hypertension (Chronic) Nonrheumatic aortic (valve) stenosis (Chronic) Testicular malignancy (Chronic) Right testicular resection due to malignant tumor with lymph nodes removed Hospital Course and Treatment Operations: None Procedures: 2-D Echocardiogram Summary of Care Provided: Patient seen and examined independently. Data reviewed. I agree with the above note by the nurse practitioner. The patient is a 70 year old M presents with chest pain. Patient was found to have a blood pressure 215/99. Patient was started on nicardipine drip and blood pressure steadily improved. Patient additionally had slight elevation in troponins felt to be related with demand. Blood pressure was optimized with amlodipine, carvedilol, HCTZ and losartan. Patient was observed and did not have any rapid increase in his blood pressure. Patient also had elevated troponins that went from 0.215-0.197. Patient had echocardiogram showed an EF of 65%. Patient was seen by cardiology which felt the times were due to demand and did not feel additional work-up was necessary. Patient may complaint was lower extremity edema which is been off and on for him but he is concerned is getting worse. Discussed with the patient there is no evidence of any heart failure as cause of his lower extremity edema. Did advise modifications to his lifestyle including fluid restriction, sodium restriction and keeping his legs elevated when not on his feet. Patient states that he is normally pretty active despite his Parkinson's and works out daily typically. Told him that if those measures do not help then he may need compression stockings or OSMAN hose. Patient has some slight edema but nonpitting in his lower extremities [] - Physical Exam Vitals/I&O's: Vital Signs Temp Pulse Resp BP Pulse Ox 36.6 C 63 18 127/75 H 99 11/27/20 10:55 11/27/20 10:55 11/27/20 10:55 11/27/20 10:55 11/27/20 10:55 Oxygen Delivery Method Room Air Weight: 111.3 kg Body Mass Index (BMI) 34.9 Intake and Output for Last 24 Hours 11/25/20 11/26/20 11/27/20 23:59 23:59 23:59 Intake Total 1250.00 / 1250.00 360 / 360 Output Total 1375 / 1375 Balance -125.00 / -125.00 360 / 360 General: Alert, Cooperative HEENT: Atraumatic, Normocephalic Lungs: Clear to auscultation, Normal air movement, No rhonchi, No wheeze Cardiovascular: Regular rate, Regular Rhythm Current Medications Acetaminophen (Acetaminophen 325 Mg Tablet) 650 mg PO Q6H PRN PRN PRN Reason: Pain Score 1-10/Temp > 100.7 F Last Admin: 11/26/20 08:14 Dose: 650 mg Documented by: Al Hydroxide/Mg Hydroxide (Mag Hydrox/Al Hydrox/Simeth 30 Ml Udc) 30 ml PO Q6H PRN PRN PRN Reason: Gastric Burning Albuterol Sulfate (Albuterol 2.5 Mg/3 Ml Vial.Neb.) 2.5 mg INHALATION Q2H PRN PRN PRN Reason: Dyspnea, wheezing Allopurinol (Allopurinol 300 Mg Tablet) 300 mg PO DAILY [facility] Last Admin: 11/27/20 09:31 Dose: 300 mg Documented by: Amlodipine Besylate (Amlodipine 10 Mg Tablet) 10 mg PO DAILY [facility] Last Admin: 11/27/20 10:56 Dose: 10 mg Documented by: Aspirin (Aspirin 81 Mg Tab.Chew) 81 mg PO DAILY@0800 [facility] Last Admin: 11/27/20 09:32 Dose: 81 mg Documented by: Carbidopa/Levodopa (Carbidopa/Levodopa Cr 50/200 Tablet) 1 tablet PO TIDAC [facility] Last Admin: 11/27/20 10:56 Dose: 1 tablet Documented by: Carvedilol (Carvedilol 25 Mg Tablet) 25 mg PO BID [facility] Last Admin: 11/27/20 10:56 Dose: 25 mg Documented by: Cholecalciferol (Cholecalciferol (Vit D3) 25 Mcg Tablet (1,000 Units)) 50 mcg PO DAILY [facility] Last Admin: 11/27/20 09:31 Dose: 50 mcg Documented by: Enoxaparin Sodium (Enoxaparin 40 Mg/0.4 Ml Syringe) 40 mg SC DAILY@0600 [facility] Last Admin: 11/27/20 06:26 Dose: 40 mg Documented by: Fluticasone Propionate (Fluticasone 0.05% 1 [place] Nasal.Sry) 2 spray NASAL DAILY PRN PRN Reason: ALLERGIES Guaifenesin (Guaifenesin 10 Ml Udc (200mg/10ml)) 10 ml PO Q4H PRN PRN PRN Reason: COUGH Hydralazine HCl (Hydralazine 20 Mg/Ml Vial) 10 mg IV Q4H PRN PRN PRN Reason: SBP > 160 Hydrochlorothiazide (Hydrochlorothiazide 25 Mg Tablet) 25 mg PO DAILY [facility] Last Admin: 11/27/20 09:32 Dose: 25 mg Documented by: Sodium Chloride () 250 mls @ 15 mls/hr IV .[id number] PRN PRN Reason: Saline Flush Sodium Chloride () 250 mls @ 15 mls/hr IV .[id number] PRN PRN Reason: Additional IVPB Infusion Losartan Potassium (Losartan Potassium 100 Mg Tablet) 100 mg PO DAILY [facility] Last Admin: 11/27/20 10:56 Dose: 100 mg Documented by: Magnesium Hydroxide (Magnesium Hydroxide 30 Ml Udc) 30 ml PO DAILY PRN PRN PRN Reason: Constipation Melatonin (Melatonin 3 Mg Tablet) 3 mg PO QHS PRN PRN PRN Reason: INSOMNIA Ondansetron HCl (Ondansetron 4 Mg/2 Ml Vial) 4 mg IV Q8H PRN PRN PRN Reason: NAUSEA/VOMITING Pramipexole Dihydrochloride (Pramipexole Di-Hcl 0.25 Mg Tablet) 0.25 mg PO TID [facility] Last Admin: 11/27/20 06:22 Dose: 0.25 mg Documented by: Primidone (Primidone 50 Mg Tablet) 50 mg PO BID [facility] Last Admin: 11/27/20 09:32 Dose: 50 mg Documented by: Prochlorperazine Edisylate (Prochlorperazine 10 Mg/2 Ml Vial) 5 mg IV Q4H PRN PRN PRN Reason: Breakthrough Nausea/Vomiting Psyllium Hydrophilic Mucilloid (Psyllium 1 Packet) 1 packet PO DAILY PRN PRN PRN Reason: Constipation Senna/Docusate Sodium (Senna/Docusate Sodium 1 Tablet) 2 tablet PO BID PRN PRN PRN Reason: Constipation Sodium Chloride (0.9% Saline Lock 10 Ml Syringe) 10 - 40 ml IV UD PRN PRN Reason: SALINE FLUSH Last Admin: 11/26/20 08:14 Dose: 10 ml Documented by: Throat Lozenges (Benzocaine/Menthol 1 Lozenge) 1 lozenge MUCOUS MEM Q2H PRN PRN PRN Reason: SORE THROAT Tizanidine HCl (Tizanidine Hcl 2 Mg Tablet) 2 mg PO TID PRN PRN Reason: BACK/LEG PAIN Discharge Diet: Low fat/ Low Cholesterol, 2000 mg Sodium Diet Discharge Activity: Return to Normal Activity Call your doctor if you observe: Shortness of breath, Dizziness Disposition: Home Minutes spent on discharge:: 35 Patient Condition:: Stable Medical Necessity - Tobacco Use Smoking Status: Never smoker Tobacco Use: Non-smoker Meaningful Use Info Meaningful Use Diagnoses (Choose all that apply): None applicable Inpatient E&M: [id number] [facility]
--- NOTE | 2020-11-27 14:19 | PHA.DC.MR ---
Pharmacy Service has performed discharge medication reconciliation for this patient. The patient's discharge medication list was reviewed for discrepancies and discrepancies were resolved. Home Medications Allopurinol [Zyloprim] 300 mg PO DAILY 10/18/13 Aspirin [Aspirin, Baby] 81 mg PO DAILY@0800 10/18/13 Carbidopa/Levodopa 50/200 [Sinemet CR 50/200] 1 tab PO TIDAC 10/18/13 pramipexole 0.25 mg tablet 0.25 mg PO TID tab 01/01/18 ascorbic acid (vitamin C) 1,000 mg tablet 1,500 mg PO QDAY tab 01/03/20 cholecalciferol (vitamin D3) 25 mcg (1,000 unit) capsule 50 mcg PO DAILY 01/03/20 losartan 100 mg tablet 100 mg PO DAILY #90 tab 10/29/20 albuterol sulfate 90 mcg/actuation aerosol inhaler 1 inh INHALATION ONCE 11/21/20 primidone 50 mg tablet 50 mg PO BID tablet 11/21/20 tizanidine 2 mg capsule 2 mg PO TID PRN 11/21/20 Triamcinolone Acetonide [Nasacort] 2 spray NS DAILY PRN 11/26/20 Amlodipine [Norvasc] 10 mg PO DAILY #30 tablet 11/27/20 Carvedilol [Coreg (Beta [place])] 25 mg PO BID #60 tablet 11/27/20 Hydrochlorothiazide [Hctz] 25 mg PO DAILY #30 tablet 11/27/20
== END 2020-11-27 14:17 | disposition home or self-care (01) | DRG 305 ==
LOC: ED 03:09 → ICU 06:54 → PCU 02-15 07:35
PROVIDERS: Admitting Provider Family Medicine; Emergency Provider Emergency Medicine; PCP Family Medicine
DX: I16.0 Hypertensive urgency (principal); I24.8 Other forms of acute ischemic heart disease; G20 Parkinson's disease; E78.5 Hyperlipidemia, unspecified; N18.31 Chronic kidney disease, stage 3a; I12.9 Hypertensive chronic kidney disease with stage 1 through stage 4 chronic kidney disease, or unspecified chronic kidney disease; M10.9 Gout, unspecified; E66.9 Obesity, unspecified; G47.33 Obstructive sleep apnea (adult) (pediatric); D64.9 Anemia, unspecified; G25.0 Essential tremor; I70.0 Atherosclerosis of aorta; Z85.47 Personal history of malignant neoplasm of testis; Z79.899 Other long term (current) drug therapy; Z68.36 Body mass index [BMI] 36.0-36.9, adult; I08.0 Rheumatic disorders of both mitral and aortic valves; Z79.82 Long term (current) use of aspirin; R06.02 Shortness of breath
CPT/HCPCS: 71045; 80048; 80053; 80061; 83735; 83880; 84484; 85025; 85610; 85730; 93005; 93306; 94762; 96365; 96366; 96372; 96375; 96376; 99218; 99251; 99285; J7050; Q9957; A4216; G0378; G0463; J1940

== ENCOUNTER → 2020-12-11 07:57 | Outpatient (CLI) | payer MEDICARE, SELFPAY ==
[2020-11-26 04:12] VITALS: BMI 34.9
[2020-12-11 09:09] LABS: Anion Gap 6 (5-15); BUN 43 mg/dL (7-18); BUN/Creat Ratio 30.1 RATIO (10-20); Chloride 103 mmol/L (98-107); Creatinine, Serum 1.43 mg/dL (0.70-1.30); EST Glomerular Filtration Rate 52 mL/min (>60); Est Glom Filt Rate - Afr Amer 63 mL/min (>60); Glucose 120 mg/dL (74-106); Potassium 4.8 mmol/L (3.5-5.1); Sodium Level 135 mmol/L (136-145)
== END ==
PROVIDERS: PCP Family Medicine; Referring Provider Family Medicine; Visit Provider Family Medicine
DX: N18.30 Chronic kidney disease, stage 3 unspecified (principal)
CPT/HCPCS: 36415; 80048

== ENCOUNTER → 2021-01-16 06:09 | Outpatient (CLI) | payer MEDICARE, SELFPAY ==
[2021-01-03 07:11] VITALS: BMI 34.8
--- NOTE | 2021-01-16 17:36 | STRESSREP ---
Stress Test Report Pharmacologic myocardial perfusion stress test. 70-year-old man with a history of shortness of breath with mild aortic valve disease. Stress protocol: Resting EKG demonstrates normal sinus rhythm with a rate of 59 bpm resting blood pressure is 148/80 mmHg. 0.4 mg of regadenoson was infused per usual protocol followed by rapid intravenous saline flush injection continuous EKG monitoring was performed. The maximum heart rate attained was 90 bpm which was 60% of maximum predicted heart rate the maximum workload was 1 metabolic equivalent. At rest there were no ST or T wave changes noted to suggest ischemia and at peak exercise nonspecific ST changes were noted which did not meet the criteria for ischemia. No clinical angina was noted. The final blood pressure was 134/74 mmHg. Myocardial perfusion protocol. 14.7 mCi of technetium 99m sestamibi was injected at rest. 0.4 mg of regadenoson was infused per usual protocol. At peak infusion 44.4 mCi of technetium 99m sestamibi was injected stress images were obtained stress and rest images were reconstructed and compared in the short axis vertical long and horizontal long axis. Gated images were also obtained Perfusion SPECT analysis: Review of the stress images demonstrate normal perfusion noted in all areas of the myocardium except for a small portion of the mid inferior wall. The rest of the other bermudez appear to have normal perfusion. The resting images demonstrate a similar pattern with mild improvement in the inferior wall suggesting possible mild inferior ischemia. GI attenuation artifact cannot be completely excluded. The above however appears to be less likely. Gated SPECT analysis: The gated ejection fraction is 71%. Conclusion: Pharmacologic myocardial perfusion stress test with evidence of probable inferior myocardial ischemia. Preserved ejection fraction.
== END ==
PROVIDERS: PCP Family Medicine; Referring Provider Internal Medicine Cardiovascular Disease; Visit Provider Internal Medicine Cardiovascular Disease
DX: I25.2 Old myocardial infarction (principal)
CPT/HCPCS: 78452; 93017; A9500; A4216; J2785

== ENCOUNTER 2021-01-21 07:52 | Day surgery (SDC) | payer MEDICARE, SELFPAY ==
[2021-01-03 07:11] VITALS: BMI 34.8
[2021-01-18 10:39] LABS: Absolute Lymphocyte Count 0.89 X10^3/uL (0.83-4.51); Absolute Neutrophil Count 3.1 X10^3/uL (2.0-7.7); Basophil# 0.04 X10^3/uL; Basophil% 0.9 % (0-1); Eosinophil# 0.17 X10^3/uL; Eosinophils% 3.7 % (0-5); Hematocrit 31.8 % (40-54); Hemoglobin 10.7 g/dL (13.0-16.5); Lymphocyte # 0.89 X10^3/ul (0.83-4.51); Lymphocyte % 19.3 % (19-41); Mean Corp Hgb Conc 33.6 g/dL (32-36); Mean Corpuscular Hgb 31.7 pg (27.0-32.0); Mean Corpuscular Volume 94.1 fL (80-94); Mean Platelet Vol. 10.6 fl (6.2-12.0); Monocyte# 0.43 X10^3/uL; Monocyte% 9.3 % (0-10); NRBC Flagged by Analyzer 0 % (0-5); Neutrophil # 3.07 X10^3/uL (2.7-7.7); Neutrophil % 66.4 % (47-70); Platelet Count 156 K/mm3 (150-450); RBC Distribution Width CV 14.1 % (11.6-14.6); RBC Distribution Width SD 48.3 fl (35.1-43.9); Red Blood Count 3.38 M/mm3 (4.6-6.2); White Blood Count 4.6 K/mm3 (4.4-11.0)
[2021-01-18 10:58] LABS: Anion Gap 7 (5-15); BUN 64 mg/dL (7-18); BUN/Creat Ratio 35.6 RATIO (10-20); Calcium,Total 8.8 mg/dL (8.5-10.1); Chloride 109 mmol/L (98-107); EST Glomerular Filtration Rate 40 mL/min (>60); Est Glom Filt Rate - Afr Amer 48 mL/min (>60); Glucose 128 mg/dL (74-106); Potassium 4.5 mmol/L (3.5-5.1); Sodium Level 139 mmol/L (136-145)
[2021-01-18 11:05] VITALS: BMI 34.8
--- NOTE | 2021-01-21 10:42 | CL.D_ITS ---
Patient Name: CAROLYN CLINTON Study Date: 01/21/2021 Performing: Federico Chacko MD Ht: 70.07 inches 178 cm : 1950 Wt: 242.51 lbs 110 kg Age: 70 Gender: male BSA: 2.27 PROCEDURE(S) PERFORMED [id number] CLINICAL PROFILE AND INDICATIONS Indications: Suspected CAD Heart Failure: None Stress/Imaging Stress Test w/SPECT MPI: Yes Result: Positive Intermediate RiskStress Test with SP ECT MPI: Positive Intermediate Risk CAD Presentations: Symptom unlikely to be ischemic. CONCLUSIONS Nonobstructive coronary arteries with coronary ectasia noted in the LAD and right coronary artery. RECOMMENDATIONS Medical therapy DESCRIPTION OF PROCEDURE The patient arrived to the procedure lab. The risks and benefits of the procedure as well as a full d escription of our services here and current unavailability of surgical backup were fully explained to the patient and/or their significant other prior to the catheterization. The Timeout was completed, verifying the correct patient and procedure. The patient's procedural site was prepped and draped in the usual fashion. Local anesthetic was given subcutaneously to right radial region with Lidocaine 2% . Using a modified Seldinger technique, arterial access was obtained via the right radial artery, a 6 Fr sheath was inserted. Left Coronary Artery selective angiography was performed in multiple views u sing a 5 Fr. 4.0 [place] catheter. Right Coronary Artery selective angiography was then performed in mu ltiple views using a 5 Fr. 4.0 [place] catheter. Left Coronary Artery selective angiography was perform ed in multiple views using a 5 Fr. 4.0 [place] catheter.The arterial sheath was pulled and a TR Band was applied for hemostasis 10cc air CORONARY ANGIOGRAPHY DOMINANCE: Right Dominant LEFT HEART ASSESSMENT Left Ventricular Ejection Fraction: Not assessed LEFT MAIN: Mild calcification LEFT ANTERIOR DESCENDING ARTERY: Mild luminal irregularities with ectatic coronary arteries. CIRCUMFLEX ARTERY: Mild luminal irregularities less than 30% RIGHT CORONARY ARTERY: Large dominant right coronary artery ectatic but with no areas of high-grade s tenosis noted COMPLICATIONS No Complications PROCEDURE MEDICATIONS Fentanyl 50 mcg IV Versed 1 mg IV Versed 1 mg IV Oxygen: 2 L/min via nasal cannula Heparin given IA 01/21/2021 10:19:35 Verapamil 2.5mg, Ntg 100mcgs, 3000 units of Heparin given IA 01/21/2021 10:19:35 SUMMARY OF HEMODYNAMIC DATA Time AIR REST ECG 08:28:13 AO 120/73 (95) SA 10:22:20 Signed By Federico Chacko MD On 01/21/2021 10:41:40 AM Federico Chacko MD
== END 2021-01-21 12:05 | disposition home or self-care (01) ==
LOC: CLSP 07:52
PROVIDERS: PCP Family Medicine; Referring Provider Internal Medicine Cardiovascular Disease; Visit Provider Internal Medicine Cardiovascular Disease
DX: I25.2 Old myocardial infarction (principal); I35.0 Nonrheumatic aortic (valve) stenosis; R06.02 Shortness of breath; I12.9 Hypertensive chronic kidney disease with stage 1 through stage 4 chronic kidney disease, or unspecified chronic kidney disease; N18.9 Chronic kidney disease, unspecified; E78.5 Hyperlipidemia, unspecified; G20 Parkinson's disease; E66.9 Obesity, unspecified; Z68.34 Body mass index [BMI] 34.0-34.9, adult; Z79.82 Long term (current) use of aspirin; Z79.51 Long term (current) use of inhaled steroids; Z79.899 Other long term (current) drug therapy
CPT/HCPCS: 36415; 80048; 85025; 93454; 93458; 99152; 99153; J7040; Q9967; C1769; C1894

== ENCOUNTER → 2021-01-25 12:42 | Outpatient (CLI) | payer MEDICARE, SELFPAY ==
[2021-01-18 11:05] VITALS: BMI 34.8
--- NOTE | 2021-01-25 12:45 | CT_ITS ---
STUDY: CT BRAIN WITHOUT CONTRAST REASON FOR EXAM: Male, 70 years old. APHASIA RADIATION DOSAGE (If Supplied By Facility): CTDIvol = ( 44.99 ) mGy, DLP = ( 815.79 ) mGycm TECHNIQUE: Transaxial CT imaging of the brain was performed without administration of intravenous contrast material. Individualized dose optimization techniques were used for this CT. COMPARISON: Comparison is made with prior study dated 07/04/2014. FINDINGS: Normal soft tissue structures. Normal calvarium. There is mild cerebral atrophy with widening of the extra-axial spaces and ventricular dilatation. Normal white matter tracts of the cerebral hemispheres. Normal basal ganglia and thalami. Normal brainstem. Normal cerebellum. There is no intracranial hemorrhage. There are no findings of an acute ischemic infarction. Atherosclerotic calcification of the cavernous portions of the internal carotid arteries bilaterally. There is partial opacification of the right maxillary sinus. CT/Brain/Head without Contrast IMPRESSION: Chronic involutional changes of the brain. Partial opacification of the right maxillary sinus. Electronically Signed: Victor Manuel Hameed MD at 14:00 EDT , Service support ,
== END ==
PROVIDERS: PCP Family Medicine; Referring Provider Psychiatry & Neurology Neurology; Visit Provider Psychiatry & Neurology Neurology
DX: R47.01 Aphasia (principal)
CPT/HCPCS: 70450

== ENCOUNTER → 2021-02-05 08:51 | Outpatient (CLI) | payer MEDICARE, SELFPAY ==
[2021-01-18 11:05] VITALS: BMI 34.8
[2021-02-05 09:10] LABS: Absolute Lymphocyte Count 0.84 X10^3/uL (0.83-4.51); Absolute Neutrophil Count 3.1 X10^3/uL (2.0-7.7); Basophil# 0.03 X10^3/uL; Basophil% 0.6 % (0-1); Eosinophil# 0.27 X10^3/uL; Eosinophils% 5.6 % (0-5); Hematocrit 30.9 % (40-54); Hemoglobin 10.7 g/dL (13.0-16.5); Lymphocyte # 0.84 X10^3/ul (0.83-4.51); Lymphocyte % 17.6 % (19-41); Mean Corp Hgb Conc 34.6 g/dL (32-36); Mean Corpuscular Hgb 32.1 pg (27.0-32.0); Mean Corpuscular Volume 92.8 fL (80-94); Mean Platelet Vol. 10.1 fl (6.2-12.0); Monocyte# 0.45 X10^3/uL; Monocyte% 9.4 % (0-10); NRBC Flagged by Analyzer 0 % (0-5); Neutrophil # 3.14 X10^3/uL (2.7-7.7); Neutrophil % 65.8 % (47-70); Platelet Count 148 K/mm3 (150-450); RBC Distribution Width CV 14.2 % (11.6-14.6); RBC Distribution Width SD 47.3 fl (35.1-43.9); Red Blood Count 3.33 M/mm3 (4.6-6.2); White Blood Count 4.8 K/mm3 (4.4-11.0)
[2021-02-05 09:39] LABS: Vitamin B12 618 pg/mL (211-911); Vitamin D,25 Hydroxy 26.6 ng/mL
[2021-02-05 09:40] LABS: ALB/GLOB Ratio 1.3 RATIO (0.9-2.4); AST(SGOT) 17 U/L (15-37); Alanine Aminotransfer ALT/SGPT 11 U/L (16-61); Albumin, Serum 3.8 g/dL (3.2-5.0); Alkaline Phosphatase 74 U/L (45-117); Anion Gap 7 (5-15); BUN 40 mg/dL (7-18); BUN/Creat Ratio 26.3 RATIO (10-20); Calcium,Total 8.8 mg/dL (8.5-10.1); Chloride 108 mmol/L (98-107); Creatinine, Serum 1.52 mg/dL (0.70-1.30); EST Glomerular Filtration Rate 48 mL/min (>60); Est Glom Filt Rate - Afr Amer 59 mL/min (>60); Ferritin 106 ng/mL (26-388); Globulin 2.9 g/dL (2.2-4.2); Glucose 116 mg/dL (74-106); Iron 80 ug/dL (65-175); Potassium 4.8 mmol/L (3.5-5.1); Protein, Total 6.7 g/dL (6.4-8.2); Sodium Level 140 mmol/L (136-145)
[2021-02-05 09:41] LABS: Hemoglobin A1c 5.7 % (3.8-5.6)
== END ==
PROVIDERS: PCP Family Medicine; Referring Provider Family Medicine; Visit Provider Family Medicine
DX: I12.9 Hypertensive chronic kidney disease with stage 1 through stage 4 chronic kidney disease, or unspecified chronic kidney disease (principal); N18.30 Chronic kidney disease, stage 3 unspecified; D63.1 Anemia in chronic kidney disease; D64.9 Anemia, unspecified; E55.9 Vitamin D deficiency, unspecified; R53.83 Other fatigue; R73.01 Impaired fasting glucose
CPT/HCPCS: 36415; 80053; 82306; 82607; 82728; 83036; 83540; 85025

== ENCOUNTER 2021-03-26 13:51 | Emergency (ER) | payer MEDICARE, SELFPAY ==
[2021-01-18 11:05] VITALS: BMI 34.8
[2021-03-26 13:53] VITALS: BP 154/92; PULSE 81; RESP 18; TEMP 36.9; O2SAT 94; BMI 36.7
[2021-03-26 14:27] VITALS: BP 154/92; PULSE 81; RESP 18; TEMP 36.9; O2SAT 94
--- NOTE | 2021-03-26 14:36 | VDLE_ITS ---
Reason For Study: Edema RIGHT LEFT CFV is compressible, spontaneous, phasic, GSV is normal. competent and demonstrates normal CFV is compressible, spontaneous, phasic, augmentation. competent, and demonstrates normal Procedure augmentation. This is a venous duplex using B-mode, color FV is compressible, spontaneous, phasic, flow and spectral Doppler. competent and demonstrates normal Exam performed portable in ED. augmentation. A preliminary report was called and/or faxed POP V is compressible, spontaneous, phasic, to [place]. competent and demonstrates normal augmentation. T/P Trunk is compressible. PTV is compressible. LT PerV is compressible. VL/Venous Duplex US, Unilateral Interpretation Summary There is no evidence of left lower extremity deep vein thrombosis. Left great s aphenous vein appears patent and compressible segmentally. Patent and compressible right common femor al vein Ordering Physician: Elo Doll Referring Physician: Tom Crocker Performed By: Ashely Underwood RVT and Student
--- NOTE | 2021-03-26 14:50 | EDS_ITS ---
HPI History of Present Illness Chief Complaint: Edema Informant: patient Narrative Narrative: Patient is a 70-year-old male with history of hypertension, hyperlipidemia, CKD and coronary artery disease presenting with left leg swelling. Patient states that he is currently being treated for fungal infection on his left leg. He is not sure what medication it is. Yesterday he noticed a red spot behind his left thigh just above the knee that was painful. His doctor called him and Keflex which she is had 1 dose of. Today he has significant swelling of his left lower extremity. He states he had bilateral lower extremity swelling before but never unilateral. He notes that he is scheduled to have an outpatient DVT ultrasound at the end of this week but they could not get him scheduled sooner. He does have pain at the area of redness but denies any fever. He Nuys any drainage. He Nuys any chest pain, shortness of breath or difficulty breathing. He denies any history of DVT or PE. Patient denies any GI or complaints. No other complaints at this time. [facility] Medical History CKD (chronic kidney disease) Essential (primary) hypertension Gout History of non-ST elevation myocardial infarction (NSTEMI) (11/26/20) Hyperlipidemia Hypertensive urgency (11/26/20) Hypothyroidism Nonobstructive atherosclerosis of coronary artery Nonrheumatic aortic (valve) stenosis Obesity PATRICIO (obstructive sleep apnea) Parkinsons disease Testicular malignancy Tremor, essential Home Medications allopurinol 300 mg PO DAILY 10/18/13 [History Last Taken Unknown] pramipexole 0.25 mg tablet 0.25 mg PO TID tab 01/01/18 [History Last Taken Unknown] losartan 100 mg tablet 100 mg PO DAILY #90 tab 10/29/20 [Rx Last Taken 01/21/21] albuterol sulfate 90 mcg/actuation aerosol inhaler 2 puff INHALATION 4X/DAY PRN PRN 11/21/20 [History Last Taken Unknown] primidone 50 mg tablet 50 mg PO BID tablet 11/21/20 [History Last Taken Unknown] tizanidine 2 mg capsule 2 mg PO TID PRN 11/21/20 [History Last Taken Unknown] amlodipine 10 mg tablet 10 mg PO DAILY #90 tablet 12/19/20 [Rx Last Taken 01/21/21] carvedilol 25 mg tablet 25 mg PO BID #180 tablet 12/19/20 [Rx Last Taken Unknown] hydrochlorothiazide 25 mg tablet 25 mg PO DAILY #90 tablet 12/19/20 [Rx Last Taken Unknown] espaiiwuk-rroinswf-ocmfjbwwlb 1 tab PO TID 03/26/21 [History Last Taken Unknown] cholecalciferol (vitamin D3) 50,000 unit PO QWEEK 03/26/21 [History Last Taken Unknown] gabapentin 200 mg PO BID 03/26/21 [History Last Taken Unknown] terbinafine HCl 250 mg PO DAILY 03/26/21 [History Last Taken Unknown] Allergy/AdvReac Type Severity Reaction Status Date / Time clindamycin Allergy Swelling Verified 03/26/21 13:52 Sulfa (Sulfonamide Allergy Unknown Verified 03/26/21 13:52 Antibiotics) simvastatin AdvReac myalgia Verified 03/26/21 13:52 Family History Father CAD (coronary artery disease) Sudden cardiac , Onset Age: 59 Myocardial infarction, Onset Age: 59 Hypertension Mother Heart disease Hypertension Brother Sudden cardiac , Onset Age: 68 Surgical History History of left heart catheterization (01/21/21) History of surgical removal of testicle History of tonsillectomy Social History Smoking Status: Never smoker alcohol intake: never substance use type: does not use caffeine: No what type of physical activity do you participate in: bicycling frequency: 1-2 times per week duration: 30-45 minutes/day seatbelt use: always do you feel safe at home: Yes ROS ROS ED Constitutional Constitutional ED: Denies chills or fever(s) Eyes Eyes: Denies change in vision ENT ENT ED: Denies rhinorrhea or sore throat Cardiovascular Cardiovascular: Denies chest pain or palpitations Respiratory/Chest Respiratory/Chest: Denies cough, dyspnea or dyspnea on exertion Gastrointestinal Gastrointestinal: Denies abdominal pain, nausea or vomiting Genitourinary Genitourinary ED: Denies dysuria or hematuria Musculoskeletal Musculoskeletal: Reports other Details: left leg pain, swelling ; Denies arthralgias or myalgias Integumentary Reports rash Neurologic Neurologic: Denies headache(s) or weakness Psychiatric Psychiatric: Denies anxiety or depression Hematologic/Lymphatic Hematologic/Lymphatic: Denies easy bleeding or easy bruising EXAM Physical Exam Const Vital Signs: 03/26/21 13:53 03/26/21 14:27 03/26/21 15:00 Temperature 98.5 F 98.5 F 98.5 F Temperature Source Temporal Temporal Temporal Pulse Rate 81 81 81 Respiratory Rate 18 18 18 Respiratory Effort Normal Non-Labored Respiratory Pattern Normal Blood Pressure 154/92 H 154/92 H 154/92 H Blood Pressure Mean 112 112 112 Pulse Ox 94 94 94 Oxygen Delivery Method Room Air Room Air Room Air 03/26/21 16:00 03/26/21 17:30 Temperature 98.4 F Temperature Source Temporal Pulse Rate 64 70 Respiratory Rate 22 H 18 Respiratory Effort Respiratory Pattern Blood Pressure 129/88 H 129/88 H Blood Pressure Mean 101 101 Pulse Ox 97 97 Oxygen Delivery Method Room Air Room Air Positive well nourished and well developed General Appearance ED: well developed HEENT normocephalic and atraumatic Eyes PERRL Neck full ROM and supple Neck Narrative: No JVD Chest Wall inspection of chest normal Resp normal respiratory effort and clear to auscultation bilaterally Cardio regular rate, regular rhythm and no murmurs Cardio Narrative: 2+ bilateral DP pulses GI non-tender and non-distended Palpation: soft Extremity full ROM Extremity Narrative: Patient has 2+ pitting edema up to his knee of the left lower extremity. This is asymmetric compared to the right. No palpable cords appreciated. General Extremety ED: Yes edema General Extremity: edema Skin Skin Narrative: Patient has an area of erythema of the posterior distal thigh. There is no associated fluctuance, drainage or warmth with it. It is mildly tender to palpation. No crepitus appreciated. Patient also has chronic appearing skin changes of his left superior and lateral thigh that he states this is fungal infection. The rash there is rough, maculopapular erythema and slightly scabbed over. MDM MDM MDM Narrative Medical decision making narrative: Patient evaluated for redness and swelling of his left lower extremity. Venous duplex is negative for DVT. Patient has a very mild leukocytopenia but is close to his baseline. Patient also has an anemia however it is at his baseline. His platelets are normal. Patient has a bump in his creatinine however this appears to be his baseline as well. He does not have any other acute changes to his CMP. His BNP is normal. I do not think patient has heart failure causing his unilateral lymphedema. Patient is counseled to continue the antibiotics he was prescribed today. He is only had 1 dose of Keflex studies not had enough time to treat. Patient is counseled r eturn precautions. At this time I do not think he is failed outpatient therapy. He is otherwise well-appearing. Patient agreeable to splenic care. They are given return precautions. He will follow-up with his primary care doctor. Lab Data Attestation: I reviewed the patient's lab results. Labs: Laboratory Results - last 24 hr 03/26/21 03/26/21 03/26/21 14:40 14:40 14:40 WBC 4.2 L RBC 3.31 L Hgb 10.6 L Hct 31.8 L MCV 96.1 H MCH 32.0 MCHC 33.3 RDW Std Deviation 50.1 H RDW Coeff of Nir 14.3 Plt Count 162 MPV 10.2 Immature Gran % (Auto) 0.500 Neut % (Auto) 67.3 Lymph % (Auto) 20.1 [place] % (Auto) 6.9 Eos % (Auto) 4.5 Baso % (Auto) 0.7 Absolute Neuts (auto) 2.8 Absolute Lymphs (auto) 0.84 Nucleated RBC % 0 Sodium 139 Potassium 4.9 Chloride 109 H Carbon Dioxide 25.0 Anion Gap 5 BUN 40 H Creatinine 1.42 H Estim Creat Clear Calc 49.98 Est GFR (MDRD) Af Amer 63 Est GFR (MDRD) Non-Af 52 L BUN/Creatinine Ratio 28.2 H Glucose 109 H Calcium 8.7 Total Bilirubin 0.30 AST 21 ALT 15 L Alkaline Phosphatase 81 B-Natriuretic Peptide 28.8 Total Protein 6.7 Albumin 3.6 Globulin 3.1 Albumin/Globulin Ratio 1.2 Radiography Diagnostic Testing: Radiology Impression Venous Doppler Study 03/26/21 14:36 Interpretation Summary There is no evidence of left lower extremity deep vein thrombosis. Left great saphenous vein appears patent and compressible segmentally. Patent and compressible right common femoral vein Ordering Physician: Elo Doll Referring Physician: Tom Crocker Performed By: Ashely Underwood RVT and Student Chest X-Ray 03/26/21 15:05 IMPRESSION: Borderline cardiomegaly. No acute abnormality is seen. Electronically Signed: Victor Manuel Hameed MD at 15:45 EDT , Service support , Discharge Plan Triage Chief Complaint: Edema ED Provider: Elo Doll Dx/Rx/DC Orders Clinical Impression: Cellulitis of left lower extremity without foot, Lymphedema of left leg Instructions: ED Cellulitis, ED Peripheral Edema, Unilateral Prescriptions: No Action pramipexole 0.25 mg tablet 0.25 mg PO TID RF: 0 albuterol sulfate 90 mcg/actuation HFA aerosol inhaler 2 puff INHALATION 4X/DAY PRN PRN (Reason: Dyspnea) RF: 0 primidone 50 mg tablet 50 mg PO BID RF: 0 tizanidine 2 mg capsule 2 mg PO TID PRN (Reason: BACK/LEG PAIN) RF: 0 allopurinol 300 MG tablet 300 mg PO DAILY RF: 0 terbinafine HCl 250 mg tablet 250 mg PO DAILY RF: 0 gabapentin 100 mg capsule 200 mg PO BID RF: 0 wwqblvlqk-symzqpiw-vtheqavffd 50-200-200 mg tablet 1 tab PO TID RF: 0 cholecalciferol (vitamin D3) 1,250 mcg (50,000 unit) capsule 50,000 unit PO QWEEK RF: 0 losartan 100 mg tablet 100 mg PO DAILY Qty: 90 RF: 4 amlodipine 10 mg tablet 10 mg PO DAILY Qty: 90 RF: 3 carvedilol 25 mg tablet 25 mg PO BID Qty: 180 RF: 3 hydrochlorothiazide 25 mg tablet 25 mg PO DAILY Qty: 90 RF: 3 Primary Care Provider: Tom Crocker Referrals: Tom Crocker, [Primary Care Provider] - Activity Restrictions/Additional Instructions: You do not have a DVT. Continue taking antibiotics prescribed by your primary care doctor. Return the emergency room if you do not have any improvement after 48 hours of antibiotics, have worsening redness, pain or develop a fever. Disposition Disposition: Home, Self Care Discharge Date/Time: 03/26/21 17:45
[2021-03-26 14:51] LABS: Absolute Lymphocyte Count 0.84 X10^3/uL (0.83-4.51); Absolute Neutrophil Count 2.8 X10^3/uL (2.0-7.7); Basophil# 0.03 X10^3/uL; Basophil% 0.7 % (0-1); Eosinophil# 0.19 X10^3/uL; Eosinophils% 4.5 % (0-5); Hematocrit 31.8 % (40-54); Hemoglobin 10.6 g/dL (13.0-16.5); Lymphocyte # 0.84 X10^3/ul (0.83-4.51); Lymphocyte % 20.1 % (19-41); Mean Corp Hgb Conc 33.3 g/dL (32-36); Mean Corpuscular Volume 96.1 fL (80-94); Mean Platelet Vol. 10.2 fl (6.2-12.0); Monocyte# 0.29 X10^3/uL; Monocyte% 6.9 % (0-10); NRBC Flagged by Analyzer 0 % (0-5); Neutrophil # 2.81 X10^3/uL (2.7-7.7); Neutrophil % 67.3 % (47-70); Platelet Count 162 K/mm3 (150-450); RBC Distribution Width CV 14.3 % (11.6-14.6); RBC Distribution Width SD 50.1 fl (35.1-43.9); Red Blood Count 3.31 M/mm3 (4.6-6.2); White Blood Count 4.2 K/mm3 (4.4-11.0)
[2021-03-26 15:00] VITALS: BP 154/92; PULSE 81; RESP 18; TEMP 36.9; O2SAT 94
[2021-03-26 15:04] LABS: ALB/GLOB Ratio 1.2 RATIO (0.9-2.4); AST(SGOT) 21 U/L (15-37); Alanine Aminotransfer ALT/SGPT 15 U/L (16-61); Albumin, Serum 3.6 g/dL (3.2-5.0); Alkaline Phosphatase 81 U/L (45-117); Anion Gap 5 (5-15); BUN 40 mg/dL (7-18); BUN/Creat Ratio 28.2 RATIO (10-20); Calcium,Total 8.7 mg/dL (8.5-10.1); Chloride 109 mmol/L (98-107); Creatinine, Serum 1.42 mg/dL (0.70-1.30); EST Glomerular Filtration Rate 52 mL/min (>60); Est Glom Filt Rate - Afr Amer 63 mL/min (>60); Estimated Creatinine Clearance 49.98 ml/min; Globulin 3.1 g/dL (2.2-4.2); Glucose 109 mg/dL (74-106); Potassium 4.9 mmol/L (3.5-5.1); Protein, Total 6.7 g/dL (6.4-8.2); Sodium Level 139 mmol/L (136-145)
--- NOTE | 2021-03-26 15:05 | RAD_ITS ---
STUDY: X-RAY CHEST REASON FOR EXAM: Male, 70 years old. Edema. TECHNIQUE: Single AP portable view of the chest. COMPARISON: Comparison is made with prior study 11/26/2020. FINDINGS: EKG electrodes are seen. Stable elevation of the right hemidiaphragm. There is no demonstrated pleural abnormality. There is borderline cardiomegaly. Normal mediastinum and tai. Normal visualized pulmonary arteries. There is atherosclerotic calcification of the aortic arch with tortuosity. There are diffuse degenerative changes of the visualized thoracic spine. Normal visualized ribs, clavicles, and shoulders. Surgical clips are seen in the epigastric region. RAD/Chest 1 View (Portable) IMPRESSION: Borderline cardiomegaly. No acute abnormality is seen. Electronically Signed: Victor Manuel Hameed MD at 15:45 EDT , Service support ,
[2021-03-26 15:13] LABS: BNP,B-Type NATRIURETIC PEPTIDE 28.8 pg/mL (0-100)
[2021-03-26 16:00] VITALS: BP 129/88; PULSE 64; RESP 22; TEMP 36.9; O2SAT 97
[2021-03-26 17:30] VITALS: BP 129/88; PULSE 70; RESP 18; O2SAT 97
== END 2021-03-26 17:45 | disposition home or self-care (01) ==
PROVIDERS: Emergency Provider Emergency Medicine; PCP Family Medicine
DX: L03.116 Cellulitis of left lower limb (principal); I12.9 Hypertensive chronic kidney disease with stage 1 through stage 4 chronic kidney disease, or unspecified chronic kidney disease; N18.9 Chronic kidney disease, unspecified; E78.5 Hyperlipidemia, unspecified; E03.9 Hypothyroidism, unspecified; G20 Parkinson's disease; E66.9 Obesity, unspecified; Z79.899 Other long term (current) drug therapy
CPT/HCPCS: 71045; 80053; 83880; 85025; 93971; 99284

== ENCOUNTER 2021-03-29 21:03 | Observation (INO) | payer MEDICARE, SELFPAY ==
[2021-03-29 21:03] VITALS: BP 150/83; PULSE 74; RESP 16; TEMP 35.8; O2SAT 97; BMI 36.8
--- NOTE | 2021-03-29 22:24 | EDS_ITS ---
HPI History of Present Illness Chief Complaint: Cellulitis Informant: patient Onset/Context/Timing Onset: Days (4) Context: Gradual Onset Timing: Continuous Quality: Aching Location: Left lower extremity Worsened by: Bending the knee and applying pressure Relieved by: Nothing Narrative Narrative: Patient presents with worsening cellulitis over the past 4 days. Patient was seen here 3 days ago. Patient had a venous duplex done at that time which was negative. Patient was started on Keflex. Patient states the redness is starting to spread up his leg as well as towards his ankle. Patient describes her pain as aching. Patient states it is worse whenever he bends his knee and whenever he applies pressure to the area. Patient denies any fevers or chills. Patient denies any discharge or drainage. [facility] Medical History CKD (chronic kidney disease) Essential (primary) hypertension Gout History of non-ST elevation myocardial infarction (NSTEMI) (11/26/20) Hyperlipidemia Hypertensive urgency (11/26/20) Hypothyroidism Nonobstructive atherosclerosis of coronary artery Nonrheumatic aortic (valve) stenosis Obesity PATRICIO (obstructive sleep apnea) Parkinsons disease Testicular malignancy Tremor, essential Home Medications allopurinol 300 mg PO DAILY 10/18/13 [History Last Taken Unknown] pramipexole 0.25 mg tablet 0.25 mg PO TID tab 01/01/18 [History Last Taken Unknown] losartan 100 mg tablet 100 mg PO DAILY #90 tab 10/29/20 [Rx Last Taken 01/21/21] albuterol sulfate 90 mcg/actuation aerosol inhaler 2 puff INHALATION 4X/DAY PRN PRN 11/21/20 [History Last Taken Unknown] primidone 50 mg tablet 50 mg PO BID tablet 11/21/20 [History Last Taken Unknown] tizanidine 2 mg capsule 2 mg PO TID PRN 11/21/20 [History Last Taken Unknown] amlodipine 10 mg tablet 10 mg PO DAILY #90 tablet 12/19/20 [Rx Last Taken 01/21/21] carvedilol 25 mg tablet 25 mg PO BID #180 tablet 12/19/20 [Rx Last Taken Unknown] hydrochlorothiazide 25 mg tablet 25 mg PO DAILY #90 tablet 12/19/20 [Rx Last Taken Unknown] tpeaktvyw-dlapnabr-expohbmwty 1 tab PO TID 03/26/21 [History Last Taken Unknown] gabapentin 200 mg PO BID 03/26/21 [History Last Taken Unknown] terbinafine HCl 250 mg PO DAILY 03/26/21 [History Last Taken Unknown] Allergy/AdvReac Type Severity Reaction Status Date / Time clindamycin Allergy Swelling Verified 03/29/21 21:08 Sulfa (Sulfonamide Allergy Unknown Verified 03/29/21 21:08 Antibiotics) simvastatin AdvReac myalgia Verified 03/29/21 21:08 Family History Father CAD (coronary artery disease) Sudden cardiac , Onset Age: 59 Myocardial infarction, Onset Age: 59 Hypertension Mother Heart disease Hypertension Brother Sudden cardiac , Onset Age: 68 Surgical History History of left heart catheterization (01/21/21) History of surgical removal of testicle History of tonsillectomy Social History Smoking Status: Never smoker alcohol intake: never substance use type: does not use caffeine: No what type of physical activity do you participate in: bicycling frequency: 1-2 times per week duration: 30-45 minutes/day seatbelt use: always do you feel safe at home: Yes ROS ROS ED Constitutional Constitutional ED: Denies chills or fever(s) Eyes Eyes: Denies blurry vision or change in vision ENT ENT ED: Denies rhinorrhea or sore throat Cardiovascular Cardiovascular: Denies chest pain or palpitations Respiratory/Chest Respiratory/Chest: Denies cough or dyspnea Gastrointestinal Gastrointestinal: Denies nausea or vomiting Genitourinary Genitourinary ED: Denies dysuria or hematuria Musculoskeletal Musculoskeletal: Denies back pain or neck pain Integumentary Reports rash; Denies abscess Neurologic Neurologic: Denies headache(s) or weakness Allergic/Immunologic Allergic/Immunologic ED: Denies mouth swelling or urticaria EXAM Physical Exam Const Vital Signs: 03/29/21 21:03 03/29/21 23:30 Temperature 96.5 F L Temperature Source Temporal Pulse Rate 74 Respiratory Rate 16 16 Blood Pressure 150/83 H Blood Pressure Mean 105 Pulse Ox 97 Oxygen Delivery Method Room Air Positive well nourished, well developed and obese General Appearance ED: well developed Nutritional Appearance: obese HEENT Reports moist mucous membranes Neck supple and no JVD Extremity General Extremety ED: Yes edema and tenderness General Extremity: edema Neuro oriented x3, CN's II-XII intact bilaterally and no sensory deficits noted Sensorium / Orientation: alert Motor Exam: strength 5/5 throughout Psych mental status grossly normal Skin Skin Narrative: There is erythema and warmth over the posterior medial aspects of the left thigh, knee, and lower leg. There is some induration noted. There is no evidence of any abscess. There is no discharge or drainage. There is 2+ edema of the left lower leg. Pedal pulses are equal bilaterally. Sensation was intact to light touch in all digits. Capillary refill was less than 2 seconds in all digits. MDM MDM MDM Narrative Medical decision making narrative: Patient was given dose of IV Unasyn here. CBC showed a mild anemia with a hemoglobin of 10.2 and hematocrit was 30.1. White blood cell count was normal. Comprehensive metabolic profile showed a BUN of 51 and creatinine 1.8. These are consistent with prior results. Lactate was normal. Case was discussed with the hospitalist. She will admit the patient to her service. Patient understood and was agreeable with the plan. All questions were answered. Lab Data Labs: Laboratory Results - last 24 hr 03/29/21 03/29/21 03/29/21 22:34 22:34 22:34 WBC 5.4 RBC 3.11 L Hgb 10.2 L Hct 30.1 L MCV 96.8 H MCH 32.8 H MCHC 33.9 RDW Std Deviation 49.7 H RDW Coeff of Nir 14.3 Plt Count 165 MPV 10.2 Immature Gran % (Auto) 0.600 Neut % (Auto) 66.0 Lymph % (Auto) 19.4 [place] % (Auto) 8.3 Eos % (Auto) 5.0 Baso % (Auto) 0.7 Absolute Neuts (auto) 3.6 Absolute Lymphs (auto) 1.05 Nucleated RBC % 0 Sodium 138 Potassium 5.1 Chloride 108 H Carbon Dioxide 25.0 Anion Gap 5 BUN 51 H Creatinine 1.80 H Estim Creat Clear Calc 39.43 Est GFR (MDRD) Af Amer 48 L Est GFR (MDRD) Non-Af 40 L BUN/Creatinine Ratio 28.3 H Glucose 105 Lactic Acid 0.7 Calcium 8.9 Total Bilirubin 0.30 AST 23 ALT 14 L Alkaline Phosphatase 79 Total Protein 6.6 Albumin 3.7 Globulin 2.9 Albumin/Globulin Ratio 1.3 Treatment and Re-Evaluation Vital Sign Attestation:: Vital signs were reviewed prior to admission. They are stable. Discharge Plan Dx/Rx/DC Orders Clinical Impression: Cellulitis of left lower extremity without foot Disposition Disposition: Acute Care Hospital [facility]
[2021-03-29 22:43] LABS: Absolute Lymphocyte Count 1.05 X10^3/uL (0.83-4.51); Absolute Neutrophil Count 3.6 X10^3/uL (2.0-7.7); Basophil# 0.04 X10^3/uL; Basophil% 0.7 % (0-1); Eosinophil# 0.27 X10^3/uL; Hematocrit 30.1 % (40-54); Hemoglobin 10.2 g/dL (13.0-16.5); Lymphocyte # 1.05 X10^3/ul (0.83-4.51); Lymphocyte % 19.4 % (19-41); Mean Corp Hgb Conc 33.9 g/dL (32-36); Mean Corpuscular Hgb 32.8 pg (27.0-32.0); Mean Corpuscular Volume 96.8 fL (80-94); Mean Platelet Vol. 10.2 fl (6.2-12.0); Monocyte# 0.45 X10^3/uL; Monocyte% 8.3 % (0-10); NRBC Flagged by Analyzer 0 % (0-5); Neutrophil # 3.58 X10^3/uL (2.7-7.7); Platelet Count 165 K/mm3 (150-450); RBC Distribution Width CV 14.3 % (11.6-14.6); RBC Distribution Width SD 49.7 fl (35.1-43.9); Red Blood Count 3.11 M/mm3 (4.6-6.2); White Blood Count 5.4 K/mm3 (4.4-11.0)
[2021-03-29 23:08] LABS: ALB/GLOB Ratio 1.3 RATIO (0.9-2.4); AST(SGOT) 23 U/L (15-37); Alanine Aminotransfer ALT/SGPT 14 U/L (16-61); Albumin, Serum 3.7 g/dL (3.2-5.0); Alkaline Phosphatase 79 U/L (45-117); Anion Gap 5 (5-15); BUN 51 mg/dL (7-18); BUN/Creat Ratio 28.3 RATIO (10-20); Calcium,Total 8.9 mg/dL (8.5-10.1); Chloride 108 mmol/L (98-107); EST Glomerular Filtration Rate 40 mL/min (>60); Est Glom Filt Rate - Afr Amer 48 mL/min (>60); Estimated Creatinine Clearance 39.43 ml/min; Globulin 2.9 g/dL (2.2-4.2); Glucose 105 mg/dL (74-106); Potassium 5.1 mmol/L (3.5-5.1); Protein, Total 6.6 g/dL (6.4-8.2); Sodium Level 138 mmol/L (136-145)
[2021-03-29 23:15] LABS: Lactic Acid 0.7 mmol/L (0.4-1.9)
[2021-03-29 23:30] VITALS: RESP 16
--- NOTE | 2021-03-29 23:58 | PCM.HP.STD ---
HPI - General General Date of Admission: 03/30/21 Date of Service: 03/30/21 Chief Complaint: LLE cellulitis, failed outpatient treatment HPI Narrative The patient is a 70 y/o M w/ PMHx: CKD stage III, Chronic anemia, Parkinson's disease, HTN, HLD, Hx Testicular malignancy s/p resection, PATRICIO, Nonobstructive CAD w/ Hx SC, CKD stage III who presents to the [facility] ED on 03/29/21 with recent history of LLE cellulitis, initiated on keflex oral antibiotic therapy following evaluation in the emergency room 3 days ago with concurrent negative duplex at that time without marked improvement, ongoing erythema, aching pain, swelling spreading up his leg and towards his ankle prompting ED evaluation. Pain is worse with attempted movement of his knee or pressure to the erythematous area. He denies any associated fevers or chills. He does report that the swelling initially had seemed to improve but over the last 24 hours has also worsens. Work-up in the ED included T 96.5, heart rate 74, BP 150/83, respiratory rate 16, 97% room air, CBC with WBC 5.4, hemoglobin 10.2, platelet 165 without marked shift, CMP with chloride 108, BUN/Cr 51/1.80, hepatic profile not marked appearing. [facility] Medical History CKD (chronic kidney disease) Essential (primary) hypertension Gout History of non-ST elevation myocardial infarction (NSTEMI) (11/26/20) Hyperlipidemia Hypertensive urgency (11/26/20) Hypothyroidism Nonobstructive atherosclerosis of coronary artery Nonrheumatic aortic (valve) stenosis Obesity PATRICIO (obstructive sleep apnea) Parkinsons disease Testicular malignancy Tremor, essential Home Medications allopurinol 300 mg PO DAILY 10/18/13 [History Last Taken Unknown] pramipexole 0.25 mg tablet 0.25 mg PO TID tab 01/01/18 [History Last Taken Unknown] losartan 100 mg tablet 100 mg PO DAILY #90 tab 10/29/20 [Rx Last Taken 01/21/21] albuterol sulfate 90 mcg/actuation aerosol inhaler 2 puff INHALATION 4X/DAY PRN PRN 11/21/20 [History Last Taken Unknown] primidone 50 mg tablet 50 mg PO BID tablet 11/21/20 [History Last Taken Unknown] tizanidine 2 mg capsule 2 mg PO TID PRN 11/21/20 [History Last Taken Unknown] amlodipine 10 mg tablet 10 mg PO DAILY #90 tablet 12/19/20 [Rx Last Taken 01/21/21] carvedilol 25 mg tablet 25 mg PO BID #180 tablet 12/19/20 [Rx Last Taken Unknown] hydrochlorothiazide 25 mg tablet 25 mg PO DAILY #90 tablet 12/19/20 [Rx Last Taken Unknown] dmarbnpgl-vvwjidof-yuzehwmkgl 1 tab PO TID 03/26/21 [History Last Taken Unknown] gabapentin 200 mg PO BID 03/26/21 [History Last Taken Unknown] terbinafine HCl 250 mg PO DAILY 03/26/21 [History Last Taken Unknown] Allergy/AdvReac Type Severity Reaction Status Date / Time clindamycin Allergy Swelling Verified 03/29/21 21:08 Sulfa (Sulfonamide Allergy Unknown Verified 03/29/21 21:08 Antibiotics) simvastatin AdvReac myalgia Verified 03/29/21 21:08 Family History Father CAD (coronary artery disease) Sudden cardiac , Onset Age: 59 Myocardial infarction, Onset Age: 59 Hypertension Mother Heart disease Hypertension Brother Sudden cardiac , Onset Age: 68 Surgical History History of left heart catheterization (01/21/21) History of surgical removal of testicle History of tonsillectomy Social History Smoking Status: Never smoker alcohol intake: never substance use type: does not use caffeine: No what type of physical activity do you participate in: bicycling frequency: 1-2 times per week duration: 30-45 minutes/day seatbelt use: always do you feel safe at home: Yes ROS ROS Narrative Admission Review of Systems: CONSTITUTIONAL: No weight loss, fever, chills, + weakness or fatigue. HEENT: Eyes: No visual loss, blurred vision, double vision or yellow sclerae. Ears, Nose, Throat: No hearing loss, sneezing, congestion, runny nose or sore throat. SKIN: No rash or itching, lesions, wounds. CARDIOVASCULAR: + Edema. No chest pain, chest pressure or chest discomfort, palpitations, orthopnea, syncopal events. RESPIRATORY: No shortness of breath, cough or sputum, wheezing, hemoptysis. GASTROINTESTINAL: No anorexia, nausea, vomiting or diarrhea, abdominal pain, melena, BRBPR. GENITOURINARY: No dysuria, frequency, urgency or retention. NEUROLOGICAL: + Underlying Parkinsons disease/tremors, No headache, dizziness, syncope, paralysis, ataxia, numbness or tingling in the extremities, focal weakness, change in bowel or bladder control, seizure. MUSCULOSKELETAL: + muscle, back pain, joint pain or stiffness. HEMATOLOGIC: + anemia, bleeding or bruising. LYMPHATICS: No enlarged nodes. No history of splenectomy. PSYCHIATRIC: No history of depression or anxiety. ENDOCRINOLOGIC: No reports of sweating, cold or heat intolerance. No polyuria or polydipsia. ALLERGIES: No history of asthma, hives, eczema or rhinitis. Vital Signs Vital Signs Vital Signs: 03/29/21 21:03 03/29/21 23:30 Temperature 96.5 F L Temperature Source Temporal Pulse Rate 74 Respiratory Rate 16 16 Blood Pressure 150/83 H Blood Pressure Mean 105 Pulse Ox 97 Oxygen Delivery Method Room Air Weight Weight: 256 lb 6.362 oz Body Mass Index (BMI) 36.8 Physical Exam Narrative Physical Examination: General: Awake, alert, oriented x 3 and cooperative, laying in the ED bed, fatigued otherwise no acute distress. Skin: Normal color, normal turgor, no icterus, no cyanosis except noted left lower extremity with mild erythema from the ankle to the distal knee, significantly edematous with pitting from the foot to the distal knee 3+, tender to palpation. HEENT: AT/NC, EOMI, PERRLA, mildly dry MM, no carotid bruits or JVD noted; however, thickened neck makes examination difficult Lungs: Diminished, distant, appropriate effort, no rales, ronchi or wheezing. Heart: Regular rate and rhythm; no gallop, rub audible. Abdomen: Soft, obese, NTTP, ND, distant normal BS, no obvious HSM however habitus makes examination difficult. Extremities: No cyanosis, no clubbing, see skin, significant pitting edema as noted above. Neurological: Patient awake, alert, oriented as noted, cognitive function intact; pupils equally reactive to light and accommodation, cranial nerves II-XII grossly normal, moving all 4 extremities, no focal deficits, strength moderately global decrease secondary to acute presentation and pain complaints. Psychiatric: Affect appears fatigued otherwise normal, no acute evidence of depressive or anxiety feelings. Results Lab / Micro Data Result Diagrams: 03/29/21 22:34 03/29/21 22:34 Labs: Laboratory Results - last 24 hr 03/29/21 22:34: WBC 5.4, RBC 3.11 L, Hgb 10.2 L, Hct 30.1 L, MCV 96.8 H, MCH 32.8 H, MCHC 33.9, RDW Std Deviation 49.7 H, RDW Coeff of Nir 14.3, Plt Count 165, MPV 10.2, Immature Gran % (Auto) 0.600, Neut % (Auto) 66.0, Lymph % (Auto) 19.4, [place] % (Auto) 8.3, Eos % (Auto) 5.0, Baso % (Auto) 0.7, Absolute Neuts (auto) 3.6, Absolute Lymphs (auto) 1.05, Nucleated RBC % 0 03/29/21 22:34: Sodium 138, Potassium 5.1, Chloride 108 H, Carbon Dioxide 25.0, Anion Gap 5, BUN 51 H, Creatinine 1.80 H, Estim Creat Clear Calc 39.43, Est GFR (MDRD) Af Amer 48 L, Est GFR (MDRD) Non-Af 40 L, BUN/Creatinine Ratio 28.3 H, Glucose 105, Calcium 8.9, Total Bilirubin 0.30, AST 23, ALT 14 L, Alkaline Phosphatase 79, Total Protein 6.6, Albumin 3.7, Globulin 2.9, Albumin/Globulin Ratio 1.3 03/29/21 22:34: Lactic Acid 0.7 Assessment & Plan Assessment/Plan (1) Cellulitis of left lower extremity without foot: PLAN: The patient is a 70 y/o M w/ PMHx: CKD stage III, Chronic anemia, Parkinson's disease, HTN, HLD, Hx Testicular malignancy s/p resection, PATRICIO, Nonobstructive CAD w/ Hx SC, CKD stage III who presents to the [facility] ED on 03/29/21 with recent history of LLE cellulitis, initiated on keflex oral antibiotic therapy following evaluation in the emergency room 3 days ago with concurrent negative duplex at that time without marked improvement, ongoing erythema, aching pain, swelling spreading up his leg and towards his ankle prompting ED evaluation. Pain is worse with attempted movement of his knee or pressure to the erythematous area. 1. Acute LLE Extremity Cellulitis, not improved with outpatient antibiotic therapy: Will admit to medical surgical floor, maintain on IV Unasyn, plan repeat CBC in AM, continue affected extremity elevation above heart when seated and in bed, monitor erythema outline with VS checks, recent duplex ultrasound performed in the ED when evaluated 3 days prior negative but worsening edema thus to be cautious will repeat duplex. 2. Parkinson's disease: We will continue patient primidone, pramipexole and Sinemet regimen, maintain on fall precautions, PT/OT/case management consultations for discharge planning. 3. Chronic Kidney Disease Stage III, unclear subtype: Admission BUN/Cr 51/1.80, baseline renal function primarily 1.4-1.8, repeat BMP in AM. 4. Nonobstructive CAD: We will continue aspirin, Coreg, losartan, not on statin therapy with myalgias associated with previous intake. 5. Hypertension: Continue home regimen including losartan, hydrochlorothiazide, Coreg, amlodipine with hold parameters, PRN hydralazine. 6. Hyperlipidemia: Not on statin therapy with myalgias associated with previous intake. 7. Chronic anemia, macrocytic: Admission hemoglobin 10.2, baseline recently 10 range, stable, continue supplementations. 8. History of testicular malignancy: Status post orchiectomy, remission. 9. PATRICIO: We will continue CPAP nightly. 10. DVT prophylaxis: SCDs, Lovenox. Charges/Coding Visit Charges Inpatient E&M: 43997 Init Hosp L3
[2021-03-30] VITALS (9 sets, daily range): BP systolic 125–169; BP diastolic 61–89; PULSE 62–70; RESP 16–18; TEMP 36.6–37; O2SAT 94–98; BMI 36.0
[2021-03-30] MEDS: 0.9% Normal Saline 1,000 ML 100 ML IV (01:44)
[2021-03-30] MEDS: 0.9% Saline Lock 10 ML Syringe IV ×2 (01:45→22:05)
[2021-03-30] MEDS: Gabapentin 100 MG Capsule 200 MG PO ×3 (01:59→21:55)
[2021-03-30] MEDS: Primidone 50 MG Tablet PO ×3 (01:59→21:55)
[2021-03-30] MEDS: Pramipexole Di-HCl 0.25 MG Tablet PO ×4 (02:00→21:55)
[2021-03-30] MEDS: Carbidopa/Levodopa/Entacapone 200 1 TAB PO ×4 (02:00→21:55)
[2021-03-30 06:07] LABS: Absolute Lymphocyte Count 0.92 X10^3/uL (0.83-4.51); Absolute Neutrophil Count 2.2 X10^3/uL (2.0-7.7); Basophil# 0.03 X10^3/uL; Basophil% 0.8 % (0-1); Eosinophil# 0.24 X10^3/uL; Eosinophils% 6.3 % (0-5); Hematocrit 28.4 % (40-54); Hemoglobin 9.6 g/dL (13.0-16.5); Lymphocyte # 0.92 X10^3/ul (0.83-4.51); Mean Corp Hgb Conc 33.8 g/dL (32-36); Mean Corpuscular Hgb 32.1 pg (27.0-32.0); Mean Platelet Vol. 10.7 fl (6.2-12.0); Monocyte# 0.41 X10^3/uL; Monocyte% 10.7 % (0-10); NRBC Flagged by Analyzer 0 % (0-5); Neutrophil % 57.4 % (47-70); Platelet Count 148 K/mm3 (150-450); RBC Distribution Width CV 14.2 % (11.6-14.6); RBC Distribution Width SD 48.8 fl (35.1-43.9); Red Blood Count 2.99 M/mm3 (4.6-6.2); White Blood Count 3.8 K/mm3 (4.4-11.0)
[2021-03-30 06:38] LABS: ALB/GLOB Ratio 1.3 RATIO (0.9-2.4); AST(SGOT) 19 U/L (15-37); Alanine Aminotransfer ALT/SGPT 13 U/L (16-61); Albumin, Serum 3.3 g/dL (3.2-5.0); Alkaline Phosphatase 68 U/L (45-117); Anion Gap 5 (5-15); BUN 43 mg/dL (7-18); BUN/Creat Ratio 30.9 RATIO (10-20); Calcium,Total 8.4 mg/dL (8.5-10.1); Chloride 111 mmol/L (98-107); Creatinine, Serum 1.39 mg/dL (0.70-1.30); EST Glomerular Filtration Rate 54 mL/min (>60); Est Glom Filt Rate - Afr Amer 65 mL/min (>60); Estimated Creatinine Clearance 51.06 ml/min; Globulin 2.5 g/dL (2.2-4.2); Glucose 98 mg/dL (74-106); Potassium 4.9 mmol/L (3.5-5.1); Protein, Total 5.8 g/dL (6.4-8.2); Sodium Level 141 mmol/L (136-145)
[2021-03-30] MEDS: Enoxaparin 40 MG/0.4 ML Syringe SC (08:58)
[2021-03-30] MEDS: amLODIPine 10 MG Tablet PO (08:59)
[2021-03-30] MEDS: Allopurinol 300 MG Tablet PO (08:59)
[2021-03-30] MEDS: Carvedilol 25 MG Tablet PO ×2 (08:59→21:55)
[2021-03-30] MEDS: Losartan Potassium 100 MG Tablet PO (08:59)
[2021-03-30] MEDS: hydroCHLOROthiazide 25 MG Tablet PO (08:59)
[2021-03-30] MEDS: Furosemide 40 MG Tablet PO ×2 (11:28→17:04)
--- NOTE | 2021-03-30 12:34 | CASEMGMT ---
TRUDY ARECHIGA assessment: Face to Face with patient for initial transition planning/care coordination assessment. TRUDY ARECHIGA introduced self and role at [facility], pt voices understanding and consent to assessment. Pt is sitting up in chair in no distress. Pt is A/Ox4 and answers all questions appropriately. Care providers, pharmacy, and demographics verified. Presentation: Redness down left leg, placed on keflex w/ no improvement Admitting dx: Acute cellulitis PCP: Obi Specialists: Nazanin, neuro; Padmjaa pulm; Ginna cardio Preferred [facility]acy: [facility] Insurance: [facility] Prescription Benefit: [facility] Living Will/HPOA: Pt has LW/HPOA and is aware that they are on file at [facility]. Pt states his , Ester Abbott, is HPOA. LNOK: Ester Abbott, ; Kannan Abbott, son Living Arrangements: Pt lives with in 2 story home and states no concerns at home. Pt states is independent with ADL's. Transportation: Pt states drives self and states no transportation concerns. DME/HHC: Pt states has a cane and cpap thru [employer]. Pt states no need for any further DME. Pt states no hx of HHC or SNF. Pt states no concerns with going home at time of discharge. Pt is retired. Pt states does not smoke cigarettes or drink ETOH. Pt states no further concerns/needs. CM to follow for any further discharge planning/needs. Advised pt to ask for CM if any further questions/concerns/needs arise, voices understanding. Pt Goal: Home Plan[place] TRUDY ARECHIGA
--- NOTE | 2021-03-30 15:00 | PN.HOSP_ITS ---
Subjective Subjective Patient was seen and examined today, he was admitted yesterday secondary to cellulitis of his left leg. Patient has no complaints of any fever or chills. Objective Data Objective Data Vital Signs: Vital Signs Temp Pulse Resp BP Pulse Ox 97.9 F 70 18 125/61 H 96 03/30/21 08:55 03/30/21 08:55 03/30/21 08:55 03/30/21 08:55 03/30/21 08:55 Oxygen Delivery Method Room Air Weight: 114.5 kg Body Mass Index (BMI) 36.0 Intake & Output: Intake and Output for Last 24 Hours 03/28/21 03/29/21 03/30/21 23:59 23:59 23:59 Intake Total 1736 / 1736 Balance 1736 / 1736 Medical Nutrition Assessment Dietitian: Nutrition Therapy Diagnosis Start: 03/30/21 11:14 Freq: Status: Active Protocol: Document 03/30/21 11:23 SLA (Rec: 03/30/21 11:24 SLA [id number]) Nutrition Malnutrition Evidence of Malnutrition Exists No Intake Problem Decreased Nutrient Needs (specify) Etiology (sodium) related to CKD and cellulitis Signs/Symptoms as evidenced by +1 pitting LLE edema and BUN 43, Cr 1.39 Status Active Problem Recommendation Dietitian Recommendations/Changes Will change diet to Cardiac / Sodium restriction Lab / Micro Data Result Diagrams: 03/30/21 05:18 03/30/21 05:18 Labs: Laboratory Results - last 24 hr 03/29/21 22:34: WBC 5.4, RBC 3.11 L, Hgb 10.2 L, Hct 30.1 L, MCV 96.8 H, MCH 32.8 H, MCHC 33.9, RDW Std Deviation 49.7 H, RDW Coeff of Nir 14.3, Plt Count 165, MPV 10.2, Immature Gran % (Auto) 0.600, Neut % (Auto) 66.0, Lymph % (Auto) 19.4, [place] % (Auto) 8.3, Eos % (Auto) 5.0, Baso % (Auto) 0.7, Absolute Neuts (auto) 3.6, Absolute Lymphs (auto) 1.05, Nucleated RBC % 0 03/29/21 22:34: Sodium 138, Potassium 5.1, Chloride 108 H, Carbon Dioxide 25.0, Anion Gap 5, BUN 51 H, Creatinine 1.80 H, Estim Creat Clear Calc 39.43, Est GFR (MDRD) Af Amer 48 L, Est GFR (MDRD) Non-Af 40 L, BUN/Creatinine Ratio 28.3 H, Glucose 105, Calcium 8.9, Total Bilirubin 0.30, AST 23, ALT 14 L, Alkaline Phosphatase 79, Total Protein 6.6, Albumin 3.7, Globulin 2.9, Albumin/Globulin Ratio 1.3 03/29/21 22:34: Lactic Acid 0.7 03/30/21 05:18: WBC 3.8 L, RBC 2.99 L, Hgb 9.6 L, Hct 28.4 L, MCV 95.0 H, MCH 32.1 H, MCHC 33.8, RDW Std Deviation 48.8 H, RDW Coeff of Nir 14.2, Plt Count 148 L, MPV 10.7, Immature Gran % (Auto) 0.800, Neut % (Auto) 57.4, Lymph % (Auto) 24.0, [place] % (Auto) 10.7 H, Eos % (Auto) 6.3 H, Baso % (Auto) 0.8, Absolute Neuts (auto) 2.2, Absolute Lymphs (auto) 0.92, Nucleated RBC % 0 03/30/21 05:18: Sodium 141, Potassium 4.9, Chloride 111 H, Carbon Dioxide 25.0, Anion Gap 5, BUN 43 H, Creatinine 1.39 H, Estim Creat Clear Calc 51.06, Est GFR (MDRD) Af Amer 65, Est GFR (MDRD) Non-Af 54 L, BUN/Creatinine Ratio 30.9 H, Glucose 98, Calcium 8.4 L, Total Bilirubin 0.30, AST 19, ALT 13 L, Alkaline Phosphatase 68, Total Protein 5.8 L, Albumin 3.3, Globulin 2.5, Albumin/Globulin Ratio 1.3 Physical Exam Const alert, oriented x3, no apparent distress and healthy appearing General Appearance: cooperative, well kempt and well developed Orientation / Consciousness: awake, oriented to person, oriented to place and oriented to time HEENT normocephalic, head/scalp atraumatic and moist oral mucous membranes Head and Scalp: normocephalic Eyes PERRL, EOMs intact bilaterally and conjunctivae normal Neck nuchal rigidity, supple, no JVD, thyroid normal and no carotid bruits General: trachea midline Resp normal respiratory effort, no retractions, no use of accessory muscles and clear to auscultation bilaterally Auscultation: Negative for rales, rhonchi or wheezes Cardio regular rate, regular rhythm, S1 normal heart sound, S2 normal heart sound, no murmurs, no rub and no gallops GI normal to inspection, nondistended, normoactive bowel sounds, soft to palpation, non-tender and non-distended Extremity Extremity Narrative: Examination of the lower extremities reveal stasis dermatitis changes over the lower legs, the left leg is more swollen than the right leg, the right leg has some minimal edema noted to be present, there is also a rash area over the patient's lateral left thigh area. Skin Skin Narrative: Rash is present over the patient's left lateral thigh area-this is several centimeters in length by several centimeters in diameter. General Skin Exam: no breakdown Neuro oriented x3, CN's II-XII intact bilaterally, no focal motor deficits and no sensory deficits noted Sensorium / Orientation: awake and alert Speech: speech normal Psych thought process normal and affect normal Assessment & Plan Assessment/Plan (1) Cellulitis of left lower extremity without foot: PLAN: 1. Cellulitis of the left lower leg-continue present antibiotic c overage #2 lymphedema of the left leg-I have decided to place the patient on Lasix I have stopped his hydrochlorothiazide, both lower legs will be wrapped with Chito wrap #3 dermatitis left upper leg-etiology unclear, patient states that he has been told in the past that this area is an area of fungal skin infection. Patient will need follow-up as an outpatient regarding this area, I talked to his PCP briefly by phone today and he states that the patient had an outbreak that was similar in 2017 on the exact same area and it was treated with oral antifungals at that point and it resolved, there was no biopsy done of the area. #4 coronary artery disease #5 essential hypertension #6 stage IIIa chronic kidney disease Charges/Coding Visit Charges Inpatient E&M: 50439 Subs Hosp L2
[2021-03-30] MEDS: Potassium Chloride Oral Tablet 20 MEQ PO (17:05)
[2021-03-31 03:52] VITALS: BP 120/66; PULSE 54; RESP 18; TEMP 36.9; O2SAT 100
[2021-03-31 04:00] VITALS: O2SAT 100
[2021-03-31] MEDS: Pramipexole Di-HCl 0.25 MG Tablet PO (06:08)
[2021-03-31] MEDS: Carbidopa/Levodopa/Entacapone 200 1 TAB PO (06:08)
[2021-03-31 07:18] VITALS: O2SAT 94
[2021-03-31 08:09] VITALS: BP 133/68; PULSE 61; RESP 16; TEMP 36.6; O2SAT 94
[2021-03-31] MEDS: Carvedilol 25 MG Tablet PO (08:22)
[2021-03-31] MEDS: Potassium Chloride Oral Tablet 20 MEQ PO (08:22)
[2021-03-31] MEDS: Enoxaparin 40 MG/0.4 ML Syringe SC (08:23)
[2021-03-31] MEDS: Furosemide 40 MG Tablet PO (08:23)
[2021-03-31] MEDS: Losartan Potassium 100 MG Tablet PO (08:23)
[2021-03-31] MEDS: Primidone 50 MG Tablet PO (08:24)
[2021-03-31] MEDS: Allopurinol 300 MG Tablet PO (08:24)
[2021-03-31] MEDS: Gabapentin 100 MG Capsule 200 MG PO (08:24)
[2021-03-31] MEDS: amLODIPine 10 MG Tablet PO (08:24)
--- NOTE | 2021-03-31 08:33 | PCM.DC ---
Discharge Instructions Diet Discharge Diet: No restrictions Activity Discharge Activity: Return to Normal Activity Follow Up Care Test Results: Test results from this visit will be discussed in further detail at your follow-up appointment, if applicable. Discharge Plan Admission Admit Date/Time: 03/29/21 23:58 Primary Reason for Your Visit: cellulitis Attending Provider: Tom Frye Primary Care Provider: Tom Crocker Instructions Patient Instructions: ED Chest Pain, Noncardiac Discharge Orders/Prescriptions Prescriptions: New furosemide 40 mg Tablet 40 mg PO BIDLX Qty: 60 RF: 0 potassium chloride [Klor-Con M20] 20 mEq Tablet,Er Particles/Crystals 20 meq PO DAILY Qty: 30 RF: 0 cefdinir 300 mg capsule 300 mg PO BID Qty: 14 RF: 0 triamcinolone acetonide 0.5 % cream 1 applic topical BID Qty: 15 RF: 0 Continued pramipexole 0.25 mg tablet 0.25 mg PO TID RF: 0 albuterol sulfate 90 mcg/actuation HFA aerosol inhaler 2 puff INHALATION 4X/DAY PRN PRN (Reason: Dyspnea) RF: 0 primidone 50 mg tablet 50 mg PO BID RF: 0 tizanidine 2 mg capsule 2 mg PO TID PRN (Reason: BACK/LEG PAIN) RF: 0 allopurinol 300 MG tablet 300 mg PO DAILY RF: 0 gabapentin 100 mg capsule 200 mg PO BID RF: 0 utymrlxxi-ttgdmvwe-umwvtygqgh 50-200-200 mg tablet 1 tab PO TID RF: 0 losartan 100 mg tablet 100 mg PO DAILY Qty: 90 RF: 4 amlodipine 10 mg tablet 10 mg PO DAILY Qty: 90 RF: 3 carvedilol 25 mg tablet 25 mg PO BID Qty: 180 RF: 3 Discontinued terbinafine HCl 250 mg tablet 250 mg PO 4X/DAY RF: 0 hydrochlorothiazide 25 mg tablet 25 mg PO DAILY Qty: 90 RF: 3 Referrals / Follow Up: Tom Crocker DO [Primary Care Provider] - 5-7 Days Disposition Disposition (needs filled in before D/C Order can be placed): Home, Self Care
[2021-03-31 11:25] VITALS: BP 130/77; PULSE 61; RESP 16; TEMP 36.8; O2SAT 94
--- NOTE | 2021-03-31 12:03 | PCM.DC.SUM ---
Providers Date of Admission: 03/29/21 Date of Discharge: 03/31/21 Primary Care Physician: Dr. Tom Crocker DO Reason For Visit: ACUTE CELLULITIS Diagnosis Discharge Diagnosis (1) Cellulitis of left lower extremity without foot: Status: Acute Code(s): L03.116 - Cellulitis of left lower limb Plan: Assessment: 1. Cellulitis of the left lower leg #2 lymphedema of the left leg #3 dermatitis left upper leg-etiology unclear #4 coronary artery disease #5 essential hypertension #6 stage IIIa chronic kidney disease Medications at Discharge Home Medications allopurinol 300 mg PO DAILY 10/18/13 pramipexole 0.25 mg tablet 0.25 mg PO TID tab 01/01/18 losartan 100 mg tablet 100 mg PO DAILY #90 tab 10/29/20 albuterol sulfate 90 mcg/actuation aerosol inhaler 2 puff INHALATION 4X/DAY PRN PRN 11/21/20 primidone 50 mg tablet 50 mg PO BID tablet 11/21/20 tizanidine 2 mg capsule 2 mg PO TID PRN 11/21/20 amlodipine 10 mg tablet 10 mg PO DAILY #90 tablet 12/19/20 carvedilol 25 mg tablet 25 mg PO BID #180 tablet 12/19/20 chqxvinfy-jvaftxbo-cslxlxnyzz 1 tab PO TID 03/26/21 gabapentin 200 mg PO BID 03/26/21 cefdinir 300 mg PO BID #14 cap 03/31/21 furosemide 40 mg PO BIDLX #60 tab 03/31/21 potassium chloride [Klor-Con M20] 20 meq PO DAILY #30 tab 03/31/21 triamcinolone acetonide 1 applic TOPICAL BID #15 g 03/31/21 Hospital Course Operations None Procedures None Summary of Care Provided Minutes Spent on Discharge: 32 Hospital Course: 70-year-old white male was admitted through the emergency room at [facility] with a chief complaint of increasing swelling and redness of his left leg over 48 hours. Work-up in the emergency room included labs which showed a white blood cell count of 4.2, hemoglobin was 10.6, patient's creatinine was 1.42 and BUN was 40. Patient was admitted to PCU for cellulitis of the left leg, it was felt that the patient's lymphedema in his left leg was contributing to the cellulitis and he was placed on oral Lasix with good results. On 03/31/2021, patient was seen and examined: alert, oriented x3, no apparent distress and healthy appearing General Appearance: cooperative, well kempt and well developed Orientation / Consciousness: awake, oriented to person, oriented to place and oriented to time HEENT normocephalic, head/scalp atraumatic and moist oral mucous membranes Head and Scalp: normocephalic Eyes PERRL, EOMs intact bilaterally and conjunctivae normal Neck nuchal rigidity, supple, no JVD, thyroid normal and no carotid bruits General: trachea midline Resp normal respiratory effort, no retractions, no use of accessory muscles and clear to auscultation bilaterally Auscultation: Negative for rales, rhonchi or wheezes Cardio regular rate, regular rhythm, S1 normal heart sound, S2 normal heart sound, no murmurs, no rub and no gallops GI normal to inspection, nondistended, normoactive bowel sounds, soft to palpation, non-tender and non-distended Extremity Extremity Narrative: Examination of the lower extremities reveal stasis dermatitis changes over the lower legs, the left leg is more swollen than the right leg, the right leg has some minimal edema noted to be present, there is also a rash area over the patient's lateral left thigh area. Skin Skin Narrative: Rash is present over the patient's left lateral thigh area-this is several centimeters in length by several centimeters in diameter. General Skin Exam: no breakdown Neuro oriented x3, CN's II-XII intact bilaterally, no focal motor deficits and no sensory deficits noted Sensorium / Orientation: awake and alert Speech: speech normal Psych thought process normal and affect normal Patient was felt stable for discharge on 03/31/2021. Medical Records Data Medical Nutrition Assessment Dietitian: Nutrition Therapy Diagnosis Start: 03/30/21 11:14 Freq: Status: Active Protocol: Document 03/30/21 11:23 PATITO (Rec: 03/30/21 11:24 [id number]) Nutrition Malnutrition Evidence of Malnutrition Exists No Intake Problem Decreased Nutrient Needs (specify) Etiology (sodium) related to CKD and cellulitis Signs/Symptoms as evidenced by +1 pitting LLE edema and BUN 43, Cr 1.39 Status Active Problem Recommendation Dietitian Recommendations/Changes Will change diet to Cardiac / Sodium restriction Weight / BMI Weight Weight: 113.2 kg Body Mass Index (BMI) 36.0 ABG / Lab / Microbiology Data Result Diagrams: 03/30/21 05:18 03/30/21 05:18 D/C Instructions Discharge Diet: No restrictions Meaningful Use Info Meaningful Use Diagnoses (Choose all that apply): None applicable Discharge Plan Admission Admit Date/Time: 03/29/21 23:58 Primary Reason for Your Visit: cellulitis Attending Provider: Tom Frye Primary Care Provider: Tom Crocker Instructions Patient Instructions: ED Chest Pain, Noncardiac Additional Instructions / Restrictions: Patient Problems: Altered Health Status related to Hospitalization Patient Goals: *Optimal Level of Health *Keep Appointments *Medication Compliance *Remain Safe Discharge Orders/Prescriptions Prescriptions: New furosemide 40 mg Tablet 40 mg PO BIDLX Qty: 60 RF: 0 potassium chloride [Klor-Con M20] 20 mEq Tablet,Er Particles/Crystals 20 meq PO DAILY Qty: 30 RF: 0 cefdinir 300 mg capsule 300 mg PO BID Qty: 14 RF: 0 triamcinolone acetonide 0.5 % cream 1 applic topical BID Qty: 15 RF: 0 Continued pramipexole 0.25 mg tablet 0.25 mg PO TID RF: 0 albuterol sulfate 90 mcg/actuation HFA aerosol inhaler 2 puff INHALATION 4X/DAY PRN PRN (Reason: Dyspnea) RF: 0 primidone 50 mg tablet 50 mg PO BID RF: 0 tizanidine 2 mg capsule 2 mg PO TID PRN (Reason: BACK/LEG PAIN) RF: 0 allopurinol 300 MG tablet 300 mg PO DAILY RF: 0 gabapentin 100 mg capsule 200 mg PO BID RF: 0 wrxftrfeq-iebrliwt-xxsspbgrvs 50-200-200 mg tablet 1 tab PO TID RF: 0 losartan 100 mg tablet 100 mg PO DAILY Qty: 90 RF: 4 amlodipine 10 mg tablet 10 mg PO DAILY Qty: 90 RF: 3 carvedilol 25 mg tablet 25 mg PO BID Qty: 180 RF: 3 Discontinued terbinafine HCl 250 mg tablet 250 mg PO 4X/DAY RF: 0 hydrochlorothiazide 25 mg tablet 25 mg PO DAILY Qty: 90 RF: 3 Referrals / Follow Up: Tom Crocker DO [Primary Care Provider] - 5-7 Days Disposition Disposition (needs filled in before D/C Order can be placed): Home, Self Care Charges/Coding Visit Charges Inpatient E&M: 33930 Disch Hosp
--- NOTE | 2021-04-01 14:25 | CASEMGMT ---
TRUDY ARECHIGA Discharge Follow-up Phone Call: SANDI: Shantel Strata: 3 Call Date: 04/01/21 Discharge Date: 03/31/21 Time of Call: 1420 Duration: 5 min Admitting Diagnosis: Acute cellulitis TRUDY ARECHIGA completed follow-up phone call after recent hospitalization. Patient states he is having more swelling in his lower extremity this afternoon. Patient reports no redness. Patient has no taken temperature. Patient states he filled his prescriptions and taking medications as prescribed. Patient states he did some activity today and only started elevating leg just after lunch. RN CM encourage patient to call PCP to update regarding symptoms for further directions. Patient states he has tried but could not get a hold of someone. RN CM encouraged patient to call PCP again and then this RN CM offered to call PCP office for patient. RN CM encouraged patient that if he develops a fever or symptoms worsen to return to ED. Patient voiced understanding. TRUDY ARECHIGA called Dr. Lopez office and spoke with manager athletics as no one had answered nurses line. TRUDY ARECHIGA updated Dr. Crocker's office of patient's increased swelling to lower extremity and asked if staff could call patient to follow-up. Construction Safety Manager voiced understanding and would update Dr. Crocker nurse.
== END 2021-03-31 12:09 | disposition home or self-care (01) | DRG 603 ==
LOC: ED 03-30 00:12 → PCU 03-30 02:27
PROVIDERS: Admitting Provider Family Medicine; Emergency Provider Emergency Medicine; PCP Family Medicine; Visit Provider Internal Medicine
DX: L03.116 Cellulitis of left lower limb (principal); G20 Parkinson's disease; N18.31 Chronic kidney disease, stage 3a; I89.0 Lymphedema, not elsewhere classified; L30.9 Dermatitis, unspecified; I25.10 Atherosclerotic heart disease of native coronary artery without angina pectoris; I12.9 Hypertensive chronic kidney disease with stage 1 through stage 4 chronic kidney disease, or unspecified chronic kidney disease; E66.9 Obesity, unspecified; D63.1 Anemia in chronic kidney disease; E78.5 Hyperlipidemia, unspecified; G47.33 Obstructive sleep apnea (adult) (pediatric); Z79.2 Long term (current) use of antibiotics; Z79.899 Other long term (current) drug therapy; Z68.36 Body mass index [BMI] 36.0-36.9, adult; I25.2 Old myocardial infarction
CPT/HCPCS: 36415; 71045; 80053; 83605; 83880; 85025; 87040; 93971; 96361; 96365; 96366; 96372; 97802; 99218; 99251; 99283; 99284; J7030; J7050; A4216; G0378; G0463; J0295

== ENCOUNTER 2021-04-01 15:30 | Observation (INO) | payer MEDICARE, SELFPAY ==
[2021-03-30 01:27] VITALS: BMI 36.0
[2021-04-01 15:32] VITALS: BP 158/90; PULSE 78; RESP 18; TEMP 36.6; O2SAT 97; BMI 36.3
[2021-04-01 15:35] VITALS: BP 158/90; PULSE 78; RESP 18; TEMP 36.6; O2SAT 97
--- NOTE | 2021-04-01 16:10 | VDLE_ITS ---
Reason For Study: LLE swelling RIGHT LEFT CFV is compressible, spontaneous, phasic, GSV is normal. competent and demonstrates normal CFV is compressible, spontaneous, phasic, augmentation. competent, and demonstrates normal Procedure augmentation. This is a venous duplex using B-mode, color FV is compressible, spontaneous, phasic, flow and spectral Doppler. competent and demonstrates normal Exam performed portable in ED. augmentation. The exam was diagnostic. POP V is compressible, spontaneous, phasic, A preliminary report was called and/or faxed competent and demonstrates normal to ED @ 4:40 pm. augmentation. T/P Trunk is compressible. PTV is compressible. LT PerV is compressible. NO changes from venous duplex exam 03/26/2021. VL/Venous Duplex US, Unilateral Interpretation Summary There is no evidence of left lower extremity deep vein thrombosis. Left great s aphenous vein appears patent and compressible segmentally. Normal flow patterns right common femoral vein No change from March 26, 2021 Ordering Physician: Fred Vick Referring Physician: Tom Crocker Performed By: Bertha Negrete, KENDALL, RVT
--- NOTE | 2021-04-01 16:16 | ED.VIS.LOWEX ---
HPI History of Present Illness HPI Narrative: Patient presents with increased swelling of his left lower extremity. He initially thought that he had a fungal infection on his left thigh and his primary care physician was treating him for this. He had an ultrasound performed approximately 7 days ago of his left lower extremity. He was admitted 3 days ago for IV antibiotics. He received Unasyn. He was sent home on Omnicef. He states last evening and today, his leg had increased swelling. He called his primary care provider who told him to return to the emergency department for probable admission. Patient denies any fevers or chills. No nausea or vomiting. No other symptoms. Chief Complaint: Edema PFSH [facility] Medical History Chronic pain CKD (chronic kidney disease) Essential (primary) hypertension Gout History of non-ST elevation myocardial infarction (NSTEMI) (11/26/20) Hyperlipidemia Hypertensive urgency (11/26/20) Nonobstructive atherosclerosis of coronary artery Nonrheumatic aortic (valve) stenosis Obesity PATRICIO (obstructive sleep apnea) Parkinsons disease Testicular malignancy Tremor, essential Wears hearing aid in both ears Home Medications allopurinol 300 mg PO DAILY 10/18/13 [History Last Taken 03/29/21] pramipexole 0.25 mg tablet 0.25 mg PO TID tab 01/01/18 [History Last Taken 03/29/21 14:00] losartan 100 mg tablet 100 mg PO DAILY #90 tab 10/29/20 [Rx Last Taken 03/28/21] albuterol sulfate 90 mcg/actuation aerosol inhaler 2 puff INHALATION 4X/DAY PRN PRN 11/21/20 [History Last Taken Unknown] primidone 50 mg tablet 50 mg PO BID tablet 11/21/20 [History Last Taken 03/29/21 10:00] tizanidine 2 mg capsule 2 mg PO TID PRN 11/21/20 [History Last Taken Unknown] amlodipine 10 mg tablet 10 mg PO DAILY #90 tablet 12/19/20 [Rx Last Taken 03/29/21] carvedilol 25 mg tablet 25 mg PO BID #180 tablet 12/19/20 [Rx Last Taken 03/29/21 20:00] fbdnkgdxy-loxvsxsy-xnxjmddlnt 1 tab PO TID 03/26/21 [History Last Taken 03/29/21 14:00] gabapentin 200 mg PO BID 03/26/21 [History Last Taken 03/29/21 10:00] cefdinir 300 mg PO BID #14 cap 03/31/21 [Rx Last Taken Unknown] furosemide 40 mg PO BIDLX #60 tab 03/31/21 [Rx Last Taken Unknown] potassium chloride [Klor-Con M20] 20 meq PO DAILY #30 tab 03/31/21 [Rx Last Taken Unknown] triamcinolone acetonide 1 applic TOPICAL BID #15 g 03/31/21 [Rx Last Taken Unknown] Allergy/AdvReac Type Severity Reaction Status Date / Time clindamycin Allergy Swelling Verified 03/29/21 21:08 Sulfa (Sulfonamide Allergy Unknown Verified 03/29/21 21:08 Antibiotics) simvastatin AdvReac myalgia Verified 03/29/21 21:08 Family History Father CAD (coronary artery disease) Sudden cardiac , Onset Age: 59 Myocardial infarction, Onset Age: 59 Hypertension Mother Heart disease Hypertension Brother Sudden cardiac , Onset Age: 68 Surgical History History of left heart catheterization (01/21/21) History of surgical removal of testicle History of tonsillectomy Social History Smoking Status: Never smoker alcohol intake: never substance use type: does not use caffeine: No what type of physical activity do you participate in: bicycling frequency: 1-2 times per week duration: 30-45 minutes/day seatbelt use: always do you feel safe at home: Yes ROS ROS ED ROS Narrative No fever. No chills. No nausea or vomiting. No abdominal pain. Increased leg swelling. Increased foot swelling. Increased erythema. No chest pain. No shortness of breath. EXAM Physical Exam Narrative Exam Narrative: Afebrile. Vital signs noted. Nontoxic-appearing. HEENT is grossly unremarkable. Regular rate and rhythm. Lungs are clear to auscultation bilaterally. Abdomen is soft and nontender with normoactive bowel sounds. Positive erythema left lateral thigh. Positive pitting edema left anterior tibial surface and foot. Full range of motion of joints. Neurological examination nonfocal and nonlateralizing. Positive tremor at rest consistent with Parkinson's. Const Vital Signs: 04/01/21 15:32 04/01/21 15:35 04/01/21 16:35 Temperature 97.9 F 97.9 F 98.6 F Temperature Source Temporal Temporal Temporal Pulse Rate 78 78 68 Respiratory Rate 18 18 16 Blood Pressure 158/90 H 158/90 H 160/79 H Blood Pressure Mean 112 112 106 Pulse Ox 97 97 97 Oxygen Delivery Method Room Air Room Air Room Air 04/01/21 18:07 Temperature Temperature Source Pulse Rate 63 Respiratory Rate 16 Blood Pressure 170/61 H Blood Pressure Mean 97 Pulse Ox 97 Oxygen Delivery Method Room Air MDM MDM MDM Narrative Medical decision making narrative: Comprehensive work-up was pursued. I will repeat his ultrasound of his left lower extremity to rule out DVT given his increased pain and swelling. CBC, CMP, and lactic acid were also obtained. I do not feel blood cultures are indicated as he is already on antibiotics. He does not have an elevated white count. Lactic acid is normal at 0.5. CMP is grossly unremarkable/noncontributory. I will restart the patient on Unasyn intravenously. I discussed the patient with Dr. Mclaughlin for admission. Patient is in stable condition. Lab Data Labs: Laboratory Results - last 24 hr 04/01/21 04/01/21 04/01/21 16:47 16:47 16:47 WBC 5.9 RBC 3.31 L Hgb 10.8 L Hct 32.2 L MCV 97.3 H MCH 32.6 H MCHC 33.5 RDW Std Deviation 50.1 H RDW Coeff of Nir 14.0 Plt Count 176 MPV 10.7 Immature Gran % (Auto) 0.700 Neut % (Auto) 65.7 Lymph % (Auto) 17.7 L [place] % (Auto) 9.2 Eos % (Auto) 6.0 H Baso % (Auto) 0.7 Absolute Neuts (auto) 3.9 Absolute Lymphs (auto) 1.04 Nucleated RBC % 0 Sodium 138 Potassium 5.0 Chloride 107 Carbon Dioxide 28.0 Anion Gap 3 L BUN 64 H Creatinine 1.93 H Estim Creat Clear Calc 36.77 Est GFR (MDRD) Af Amer 44 L Est GFR (MDRD) Non-Af 37 L BUN/Creatinine Ratio 33.2 H Glucose 99 Lactic Acid 0.5 Calcium 8.5 Total Bilirubin 0.20 AST 26 ALT 22 Alkaline Phosphatase 78 Total Protein 7.0 Albumin 3.8 Globulin 3.2 Albumin/Globulin Ratio 1.2 Discharge Plan Triage Chief Complaint: Edema ED Provider: Fred Vick Dx/Rx/DC Orders Prescriptions: No Action pramipexole 0.25 mg tablet 0.25 mg PO TID RF: 0 albuterol sulfate 90 mcg/actuation HFA aerosol inhaler 2 puff INHALATION 4X/DAY PRN PRN (Reason: Dyspnea) RF: 0 primidone 50 mg tablet 50 mg PO BID RF: 0 tizanidine 2 mg capsule 2 mg PO TID PRN (Reason: BACK/LEG PAIN) RF: 0 allopurinol 300 MG tablet 300 mg PO DAILY RF: 0 gabapentin 100 mg capsule 200 mg PO BID RF: 0 ysazyciqq-enzsaste-falyhiotfi 50-200-200 mg tablet 1 tab PO TID RF: 0 furosemide 40 mg Tablet 40 mg PO BIDLX Qty: 60 RF: 0 potassium chloride [Klor-Con M20] 20 mEq Tablet,Er Particles/Crystals 20 meq PO DAILY Qty: 30 RF: 0 cefdinir 300 mg capsule 300 mg PO BID Qty: 14 RF: 0 triamcinolone acetonide 0.5 % cream 1 applic topical BID Qty: 15 RF: 0 losartan 100 mg tablet 100 mg PO DAILY Qty: 90 RF: 4 amlodipine 10 mg tablet 10 mg PO DAILY Qty: 90 RF: 3 carvedilol 25 mg tablet 25 mg PO BID Qty: 180 RF: 3 Primary Care Provider: Tom Crocker
[2021-04-01 16:35] VITALS: BP 160/79; PULSE 68; RESP 16; TEMP 37; O2SAT 97
[2021-04-01 17:00] LABS: Absolute Lymphocyte Count 1.04 X10^3/uL (0.83-4.51); Absolute Neutrophil Count 3.9 X10^3/uL (2.0-7.7); Basophil# 0.04 X10^3/uL; Basophil% 0.7 % (0-1); Eosinophil# 0.35 X10^3/uL; Hematocrit 32.2 % (40-54); Hemoglobin 10.8 g/dL (13.0-16.5); Lymphocyte # 1.04 X10^3/ul (0.83-4.51); Lymphocyte % 17.7 % (19-41); Mean Corp Hgb Conc 33.5 g/dL (32-36); Mean Corpuscular Hgb 32.6 pg (27.0-32.0); Mean Corpuscular Volume 97.3 fL (80-94); Mean Platelet Vol. 10.7 fl (6.2-12.0); Monocyte# 0.54 X10^3/uL; Monocyte% 9.2 % (0-10); NRBC Flagged by Analyzer 0 % (0-5); Neutrophil # 3.86 X10^3/uL (2.7-7.7); Neutrophil % 65.7 % (47-70); Platelet Count 176 K/mm3 (150-450); RBC Distribution Width SD 50.1 fl (35.1-43.9); Red Blood Count 3.31 M/mm3 (4.6-6.2); White Blood Count 5.9 K/mm3 (4.4-11.0)
[2021-04-01 17:16] LABS: ALB/GLOB Ratio 1.2 RATIO (0.9-2.4); AST(SGOT) 26 U/L (15-37); Alanine Aminotransfer ALT/SGPT 22 U/L (16-61); Albumin, Serum 3.8 g/dL (3.2-5.0); Alkaline Phosphatase 78 U/L (45-117); Anion Gap 3 (5-15); BUN 64 mg/dL (7-18); BUN/Creat Ratio 33.2 RATIO (10-20); Calcium,Total 8.5 mg/dL (8.5-10.1); Chloride 107 mmol/L (98-107); Creatinine, Serum 1.93 mg/dL (0.70-1.30); EST Glomerular Filtration Rate 37 mL/min (>60); Est Glom Filt Rate - Afr Amer 44 mL/min (>60); Estimated Creatinine Clearance 36.77 ml/min; Globulin 3.2 g/dL (2.2-4.2); Glucose 99 mg/dL (74-106); Sodium Level 138 mmol/L (136-145)
[2021-04-01 17:22] LABS: Lactic Acid 0.5 mmol/L (0.4-1.9)
[2021-04-01 18:07] VITALS: BP 170/61; PULSE 63; RESP 16; O2SAT 97
[2021-04-01 19:54] VITALS: BP 160/83; PULSE 74; RESP 18; TEMP 36.8; O2SAT 98
--- NOTE | 2021-04-01 20:06 | PCM.HP.STD ---
HPI - General HPI Narrative CAROLYN CLINTON, is a 70 M who presents to the emergency room for readmission of left leg cellulitis. Patient was discharged after a course of antibiotic treatment as an inpatient on March 31 and was given cefdinir as an outpatient. Since his discharge the area of his left lower leg has increased erythema and swelling with warmth and tenderness. The patient denies chest pain shortness of breath fevers or chills, nausea vomiting or diarrhea. There is also an area of the left upper leg from which the cellulitis emanates that appears to be hyperkeratotic consistent with dermatitis. The patient will be admitted to general medical floor placed on IV antibiotics for broad-spectrum coverage including MRSA. May consider consult to infectious disease specialist in the morning. [facility] Medical History Chronic pain CKD (chronic kidney disease) Essential (primary) hypertension Gout History of non-ST elevation myocardial infarction (NSTEMI) (11/26/20) Hyperlipidemia Hypertensive urgency (11/26/20) Nonobstructive atherosclerosis of coronary artery Nonrheumatic aortic (valve) stenosis Obesity PATRICIO (obstructive sleep apnea) Parkinsons disease Testicular malignancy Tremor, essential Wears hearing aid in both ears Home Medications allopurinol 300 mg PO DAILY 10/18/13 [History Last Taken 03/29/21] pramipexole 0.25 mg tablet 0.25 mg PO TID tab 01/01/18 [History Last Taken 03/29/21 14:00] losartan 100 mg tablet 100 mg PO DAILY #90 tab 10/29/20 [Rx Last Taken 03/28/21] albuterol sulfate 90 mcg/actuation aerosol inhaler 2 puff INHALATION 4X/DAY PRN PRN 11/21/20 [History Last Taken Unknown] primidone 50 mg tablet 50 mg PO BID tablet 11/21/20 [History Last Taken 03/29/21 10:00] tizanidine 2 mg capsule 2 mg PO TID PRN 11/21/20 [History Last Taken Unknown] amlodipine 10 mg tablet 10 mg PO DAILY #90 tablet 12/19/20 [Rx Last Taken 03/29/21] carvedilol 25 mg tablet 25 mg PO BID #180 tablet 12/19/20 [Rx Last Taken 03/29/21 20:00] coasboolc-agziexlf-hfwsdsefzk 1 tab PO TID 03/26/21 [History Last Taken 03/29/21 14:00] gabapentin 200 mg PO BID 03/26/21 [History Last Taken 03/29/21 10:00] cefdinir 300 mg PO BID #14 cap 03/31/21 [Rx Last Taken Unknown] furosemide 40 mg PO BIDLX #60 tab 03/31/21 [Rx Last Taken Unknown] potassium chloride [Klor-Con M20] 20 meq PO DAILY #30 tab 03/31/21 [Rx Last Taken Unknown] triamcinolone acetonide 1 applic TOPICAL BID #15 g 03/31/21 [Rx Last Taken Unknown] Allergy/AdvReac Type Severity Reaction Status Date / Time clindamycin Allergy Swelling Verified 03/29/21 21:08 Sulfa (Sulfonamide Allergy Unknown Verified 03/29/21 21:08 Antibiotics) simvastatin AdvReac myalgia Verified 03/29/21 21:08 Family History Father CAD (coronary artery disease) Sudden cardiac , Onset Age: 59 Myocardial infarction, Onset Age: 59 Hypertension Mother Heart disease Hypertension Brother Sudden cardiac , Onset Age: 68 Surgical History History of left heart catheterization (01/21/21) History of surgical removal of testicle History of tonsillectomy Social History Smoking Status: Never smoker alcohol intake: never substance use type: does not use caffeine: No what type of physical activity do you participate in: bicycling frequency: 1-2 times per week duration: 30-45 minutes/day seatbelt use: always do you feel safe at home: Yes ROS Constitutional Constitutional: Denies chills or fever(s) Eyes Eyes: Denies change in vision ENT HEENT: Denies dysphagia Cardiovascular Cardiovascular: Reports edema Respiratory/Chest Respiratory/Chest: Denies shortness of breath at rest Gastrointestinal Gastrointestinal: Denies abdominal pain Genitourinary Genitourinary: Denies dysuria Musculoskeletal Musculoskeletal: Reports extremity pain; Denies back pain Psychiatric Psychiatric: Denies anxiety Vital Signs Vital Signs Vital Signs: 04/01/21 15:32 04/01/21 15:35 04/01/21 16:35 Temperature 97.9 F 97.9 F 98.6 F Temperature Source Temporal Temporal Temporal Pulse Rate 78 78 68 Respiratory Rate 18 18 16 Blood Pressure 158/90 H 158/90 H 160/79 H Blood Pressure Mean 112 112 106 Pulse Ox 97 97 97 Oxygen Delivery Method Room Air Room Air Room Air 04/01/21 18:07 04/01/21 19:54 Temperature 98.3 F Temperature Source Temporal Pulse Rate 63 74 Respiratory Rate 16 18 Blood Pressure 170/61 H 160/83 H Blood Pressure Mean 97 108 Pulse Ox 97 98 Oxygen Delivery Method Room Air Room Air Weight Weight: 253 lb 8.505 oz Body Mass Index (BMI) 36.3 Physical Exam Const alert and oriented x3 General Appearance: cooperative HEENT normocephalic and head/scalp atraumatic Eyes PERRL Neck supple Lymph Lymphatic: no lymphadenopathy noted Resp normal respiratory effort and clear to auscultation bilaterally Cardio regular rate, regular rhythm, S1 normal heart sound and S2 normal heart sound GI normal to inspection, nondistended, normoactive bowel sounds Extremity normal capillary refill Extremity Narrative: lwft leg erythema with large area of hyperkeratosis with dx pigmentation similar to psoriatic plaque in apearance General Extremity: edema Skin Skin Narrative: left leg erytrema from mid calf to upper mid thigh anteriorly Neuro CN's II-XII intact bilaterally Psych affect normal Appearance: appropriate Results Lab / Micro Data Result Diagrams: 04/01/21 16:47 04/01/21 16:47 Labs: Laboratory Results - last 24 hr 04/01/21 16:47: WBC 5.9, RBC 3.31 L, Hgb 10.8 L, Hct 32.2 L, MCV 97.3 H, MCH 32.6 H, MCHC 33.5, RDW Std Deviation 50.1 H, RDW Coeff of Nir 14.0, Plt Count 176, MPV 10.7, Immature Gran % (Auto) 0.700, Neut % (Auto) 65.7, Lymph % (Auto) 17.7 L, Yell % (Auto) 9.2, Eos % (Auto) 6.0 H, Baso % (Auto) 0.7, Absolute Neuts (auto) 3.9, Absolute Lymphs (auto) 1.04, Nucleated RBC % 0 04/01/21 16:47: Sodium 138, Potassium 5.0, Chloride 107, Carbon Dioxide 28.0, Anion Gap 3 L, BUN 64 H, Creatinine 1.93 H, Estim Creat Clear Calc 36.77, Est GFR (MDRD) Af Amer 44 L, Est GFR (MDRD) Non-Af 37 L, BUN/Creatinine Ratio 33.2 H, Glucose 99, Calcium 8.5, Total Bilirubin 0.20, AST 26, ALT 22, Alkaline Phosphatase 78, Total Protein 7.0, Albumin 3.8, Globulin 3.2, Albumin/Globulin Ratio 1.2 04/01/21 16:47: Lactic Acid 0.5 Micro: Microbiology 04/01/21 19:30 Mucosa - Nose SARS-CoV-2 Antigen (Rapid) - Final Assessment & Plan Assessment/Plan (1) Cellulitis of left lower extremity without foot: (2) Lymphedema of left leg: (3) Nonobstructive atherosclerosis of coronary artery: (4) History of non-ST elevation myocardial infarction (NSTEMI): (5) Hypertensive urgency: (6) Nonrheumatic aortic (valve) stenosis: (7) Essential (primary) hypertension: (8) Hyperlipidemia: QUALIFIERS: Hyperlipidemia type: unspecified Qualified Code(s): E78.5 - Hyperlipidemia, unspecified (9) Testicular malignancy: QUALIFIERS: Descendance of testis: unspecified Laterality: right Qualified Code(s): C62.91 - Malignant neoplasm of right testis, unspecified whether descended or undescended (10) CKD (chronic kidney disease): PLAN: 1. Cellulitis left lower extremity?admit patient to general medical floor, place patient on vancomycin and Rocephin, repeat CBC BMP in the morning. Allow patient normal diet, consider ID consult in the morning if failing to progress. 2. History of coronary artery disease with hypertension and hyperlipidemia?continue routine home medications for these conditions 3. DVT prophylaxis?low molecular weight heparin Charges/Coding Visit Charges Inpatient E&M: 92299 Init Hosp L2
[2021-04-01 20:30] VITALS: BMI 35.5
[2021-04-01 20:32] VITALS: BP 171/83; PULSE 67; RESP 20; TEMP 36.9; O2SAT 99
[2021-04-01 20:49] LABS: Troponin-I HS 10.9 pg/mL (3.0-78.5)
[2021-04-01] MEDS: Primidone 50 MG Tablet PO (21:10)
[2021-04-01] MEDS: Carbidopa/Levodopa/Entacapone 200 1 TAB PO (21:10)
[2021-04-01] MEDS: Carvedilol 25 MG Tablet PO (21:10)
[2021-04-01] MEDS: Pramipexole Di-HCl 0.25 MG Tablet PO (21:11)
[2021-04-01] MEDS: Gabapentin 100 MG Capsule 200 MG PO (21:11)
--- NOTE | 2021-04-02 00:41 | PCM.RX.CS ---
Consult Pharmacy has been consulted to manage selected antiobiotic: Vancomycin Type of Consult: New start Suspected Infection: Skin/Soft tissue Labs: Sodium 138 mmol/L (136-145) 04/01/21 16:47 Potassium 5.0 mmol/L (3.5-5.1) 04/01/21 16:47 Chloride 107 mmol/L (98-107) 04/01/21 16:47 Carbon Dioxide 28.0 mmol/L (21.0-32.0) 04/01/21 16:47 Anion Gap 3 (5-15) L 04/01/21 16:47 BUN 64 mg/dL (7-18) H 04/01/21 16:47 Creatinine 1.93 mg/dL (0.70-1.30) H 04/01/21 16:47 Est GFR (MDRD) Af Amer 44 mL/min (>60) L 04/01/21 16:47 Est GFR (MDRD) Non-Af 37 mL/min (>60) L 04/01/21 16:47 BUN/Creatinine Ratio 33.2 RATIO (10-20) H 04/01/21 16:47 Glucose 99 mg/dL (74-106) 04/01/21 16:47 Microbiology: Microbiology 04/01/21 19:30 Mucosa - Nose SARS-CoV-2 Antigen (Rapid) - Final Weight used for dosin.4 kg Estimated Creatinine Clearance: 44.7 Goal Trough: 10-15 mcg/mL Pharmacy Plan for Drug Dosing: Pharmacy Service will continue to monitor and adjust dosing as required. Medications Vancomycin HCl 1,500 mg/ (Sodium Chloride) 530 mls @ 250 mls/hr IV Q24H CHANELLE Discontinued Medications Vancomycin HCl 1,750 mg/ (Sodium Chloride) 535 mls @ 250 mls/hr IV X1 ONE Stop: 04/01/21 23:08 Last Admin: 04/01/21 23:19 Dose: Infused Documented by: Follow-Up Labs: Trough Vancomycin Labs to be done on [date and time ordered]: 04/03 @ 6416
[2021-04-02] MEDS: 0.9% Saline Lock 10 ML Syringe IV ×2 (02:25→10:47)
[2021-04-02 02:30] VITALS: BP 130/80; PULSE 63; RESP 16; TEMP 36.9; O2SAT 96
[2021-04-02 05:37] LABS: Absolute Lymphocyte Count 1.07 X10^3/uL (0.83-4.51); Absolute Neutrophil Count 3.5 X10^3/uL (2.0-7.7); Basophil# 0.05 X10^3/uL; Basophil% 0.9 % (0-1); Eosinophils% 5.3 % (0-5); Hematocrit 33.6 % (40-54); Hemoglobin 10.5 g/dL (13.0-16.5); Lymphocyte # 1.07 X10^3/ul (0.83-4.51); Lymphocyte % 18.9 % (19-41); Mean Corp Hgb Conc 31.3 g/dL (32-36); Mean Corpuscular Hgb 32.6 pg (27.0-32.0); Mean Corpuscular Volume 104.3 fL (80-94); Mean Platelet Vol. 10.5 fl (6.2-12.0); Monocyte# 0.65 X10^3/uL; Monocyte% 11.5 % (0-10); NRBC Flagged by Analyzer 0 % (0-5); Neutrophil # 3.54 X10^3/uL (2.7-7.7); Neutrophil % 62.5 % (47-70); Platelet Count 158 K/mm3 (150-450); RBC Distribution Width SD 53.6 fl (35.1-43.9); Red Blood Count 3.22 M/mm3 (4.6-6.2); White Blood Count 5.7 K/mm3 (4.4-11.0)
[2021-04-02 05:55] LABS: Anion Gap 6 (5-15); BUN 60 mg/dL (7-18); BUN/Creat Ratio 34.1 RATIO (10-20); Calcium,Total 8.5 mg/dL (8.5-10.1); Chloride 107 mmol/L (98-107); Creatinine, Serum 1.76 mg/dL (0.70-1.30); EST Glomerular Filtration Rate 41 mL/min (>60); Est Glom Filt Rate - Afr Amer 49 mL/min (>60); Estimated Creatinine Clearance 40.33 ml/min; Glucose 101 mg/dL (74-106); Potassium 4.8 mmol/L (3.5-5.1); Sodium Level 138 mmol/L (136-145)
[2021-04-02] MEDS: Pramipexole Di-HCl 0.25 MG Tablet PO ×2 (06:43→14:37)
[2021-04-02] MEDS: Carbidopa/Levodopa/Entacapone 200 1 TAB PO ×2 (06:44→14:37)
[2021-04-02 07:00] VITALS: O2SAT 96
[2021-04-02 08:04] VITALS: BP 134/78; PULSE 67; RESP 18; TEMP 36.8; O2SAT 97
[2021-04-02] MEDS: Allopurinol 300 MG Tablet PO (08:07)
[2021-04-02] MEDS: Carvedilol 25 MG Tablet PO (08:08)
[2021-04-02] MEDS: Potassium Chloride Oral Tablet 20 MEQ PO (08:08)
[2021-04-02] MEDS: Losartan Potassium 100 MG Tablet PO (08:08)
[2021-04-02] MEDS: Gabapentin 100 MG Capsule 200 MG PO (08:08)
[2021-04-02] MEDS: amLODIPine 10 MG Tablet PO (08:09)
[2021-04-02] MEDS: Primidone 50 MG Tablet PO (08:09)
[2021-04-02] MEDS: Furosemide 40 MG Tablet PO (08:10)
--- NOTE | 2021-04-02 10:18 | CASEMGMT ---
TRUDY CM Readmission Note Previous Admission: 03/30/21-03/31/21 Diagnosis: L leg cellulitis DC Disposition: Home Current Admission Presentation: increased left leg swelling Pt presented to ER from home after calling PCP for increased swelling of left leg. Pt started on IV antibiotics. Pt states he did take his antibiotic for the day he was home. Pt states the antibiotics will be stopped and he is to follow up with a biomedical engineering technologist. Pt denies any needs at home. DC PLAN: Home with family support.
[2021-04-02] MEDS: Enoxaparin 40 MG/0.4 ML Syringe SC (10:46)
--- NOTE | 2021-04-02 11:59 | CASEMGMT ---
RN HAWK NOTE: Pt screened with [facility] Palliative Care Screening Tool d/t readmission, pt did not meet criteria. Haven GARNICA RN CM
[2021-04-02 12:45] LABS: M R Staph aureus DNA By PCR Negative (Negative); Probe Check PASS; Specimen Processing Control PASS
--- NOTE | 2021-04-02 13:57 | CON.PCM.ID_ITS ---
Assessment & Plan Assessment/Plan (1) Cellulitis of left lower extremity without foot: PLAN: Seems most consistent with tinea corporis. Would do 2 week course of daily topical ketoconazole, stop abx. If not improved, will need to see derm. Will follow as needed, thank you, d/w Dr. Evangelista HPI Consult Data Date of Consult: 04/02/21 HPI Narrative HPI Narrative: CAROLYN CLINTON, is a 70 M who presented with LLE swelling, 3 weeks of itchy, raised, scaly, mildly tender rash on L lateral thigh. No known inciting event. No fever. Has been spreading. Given antifungal cream without improvement, then given po abx and topical steroid without help. Admitted here, discharged on omnicef, but quickly had worsening swelling, came to ED, admitted on vanc/ceftriaxone. Swelling better. He and family at bedside are covid vaccinated. Full ROS performed and neg except as noted above. [facility] [place] Medical History Chronic pain CKD (chronic kidney disease) Essential (primary) hypertension Gout History of non-ST elevation myocardial infarction (NSTEMI) (11/26/20) Hyperlipidemia Hypertensive urgency (11/26/20) Nonobstructive atherosclerosis of coronary artery Nonrheumatic aortic (valve) stenosis Obesity PATRICIO (obstructive sleep apnea) Parkinsons disease Testicular malignancy Tremor, essential Wears hearing aid in both ears Home Medications allopurinol 300 mg PO DAILY 10/18/13 [History Last Taken 04/01/21] pramipexole 0.25 mg tablet 0.25 mg PO TID tab 01/01/18 [History Last Taken 04/01/21] losartan 100 mg tablet 100 mg PO DAILY #90 tab 10/29/20 [Rx Last Taken 03/31/21] albuterol sulfate 90 mcg/actuation aerosol inhaler 2 puff INHALATION 4X/DAY PRN PRN 11/21/20 [History Last Taken Unknown] primidone 50 mg tablet 50 mg PO BID tablet 11/21/20 [History Last Taken 04/01/21] tizanidine 2 mg capsule 2 mg PO TID PRN 11/21/20 [History Last Taken Unknown] amlodipine 10 mg tablet 10 mg PO DAILY #90 tablet 12/19/20 [Rx Last Taken 03/31/21] carvedilol 25 mg tablet 25 mg PO BID #180 tablet 12/19/20 [Rx Last Taken 04/01/21] iilqytybk-plnzwstu-kpeqfdapky 1 tab PO TID 03/26/21 [History Last Taken 04/01/21] gabapentin 200 mg PO BID 03/26/21 [History Last Taken 04/01/21] cefdinir 300 mg PO BID #14 cap 03/31/21 [Rx Last Taken 04/01/21] furosemide 40 mg PO BIDLX #60 tab 03/31/21 [Rx Last Taken 04/01/21] potassium chloride [Klor-Con M20] 20 meq PO DAILY #30 tab 03/31/21 [Rx Last Taken 04/01/21] triamcinolone acetonide 1 applic TOPICAL BID 04/01/21 [History Last Taken 04/01/21] Allergy/AdvReac Type Severity Reaction Status Date / Time clindamycin Allergy Swelling Verified 03/29/21 21:08 Sulfa (Sulfonamide Allergy Unknown Verified 03/29/21 21:08 Antibiotics) simvastatin AdvReac myalgia Verified 03/29/21 21:08 Family History Father CAD (coronary artery disease) Sudden cardiac , Onset Age: 59 Myocardial infarction, Onset Age: 59 Hypertension Mother Heart disease Hypertension Brother Sudden cardiac , Onset Age: 68 Surgical History History of left heart catheterization (01/21/21) History of surgical removal of testicle History of tonsillectomy Social History Smoking Status: Never smoker alcohol intake: never substance use type: does not use caffeine: No what type of physical activity do you participate in: bicycling frequency: 1-2 times per week duration: 30-45 minutes/day seatbelt use: always do you feel safe at home: Yes Physical Exam Const alert, oriented x3 and no apparent distress Exam Limitations: no limitations HEENT normocephalic and head/scalp atraumatic Eyes PERRL and EOMs intact bilaterally Neck supple and No nodes Resp normal air movement and clear to auscultation bilaterally Cardio regular rate and regular rhythm GI normal to inspection, nondistended, normoactive bowel sounds Extremity no clubbing, cyanosis or edema Skin Skin Narrative: L lateral thigh large raised, scaly mildly red, mild tender, it mandy area Neuro CN's II-XII intact bilaterally Psych mental status grossly normal Lab / Micro Data Result Diagrams: 04/02/21 05:20 04/02/21 05:20 Labs: Laboratory Results - last 24 hr 04/01/21 16:47: WBC 5.9, RBC 3.31 L, Hgb 10.8 L, Hct 32.2 L, MCV 97.3 H, MCH 32.6 H, MCHC 33.5, RDW Std Deviation 50.1 H, RDW Coeff of Nir 14.0, Plt Count 17 6, MPV 10.7, Immature Gran % (Auto) 0.700, Neut % (Auto) 65.7, Lymph % (Auto) 17.7 L, [place] % (Auto) 9.2, Eos % (Auto) 6.0 H, Baso % (Auto) 0.7, Absolute Neuts (auto) 3.9, Absolute Lymphs (auto) 1.04, Nucleated RBC % 0 04/01/21 16:47: Sodium 138, Potassium 5.0, Chloride 107, Carbon Dioxide 28.0, Anion Gap 3 L, BUN 64 H, Creatinine 1.93 H, Estim Creat Clear Calc 36.77, Est GFR (MDRD) Af Amer 44 L, Est GFR (MDRD) Non-Af 37 L, BUN/Creatinine Ratio 33.2 H , Glucose 99, Calcium 8.5, Total Bilirubin 0.20, AST 26, ALT 22, Alkaline Phosphatase 78, Total Protein 7.0, Albumin 3.8, Globulin 3.2, Albumin/Globulin Ratio 1.2 04/01/21 16:47: Lactic Acid 0.5 04/01/21 19:55: Troponin I High Sens 10.9 04/02/21 05:20: Sodium 138, Potassium 4.8, Chloride 107, Carbon Dioxide 25.0, Anion Gap 6, BUN 60 H, Creatinine 1.76 H, Estim Creat Clear Calc 40.33, Est GFR (MDRD) Af Amer 49 L, Est GFR (MDRD) Non-Af 41 L, BUN/Creatinine Ratio 34.1 H, Glucose 101, Calcium 8.5 04/02/21 05:20: WBC 5.7, RBC 3.22 L, Hgb 10.5 L, Hct 33.6 L, MCV 104.3 H D, MCH 32.6 H, MCHC 31.3 L D, RDW Std Deviation 53.6 H, RDW Coeff of Nir 14.0, Plt Count 158, MPV 10.5, Immature Gran % (Auto) 0.900, Neut % (Auto) 62.5, Lymph % (Auto) 18.9 L, [place] % (Auto) 11.5 H, Eos % (Auto) 5.3 H, Baso % (Auto) 0.9, Absolute Neuts (auto) 3.5, Absolute Lymphs (auto) 1.07, Nucleated RBC % 0 04/02/21 10:50: MRSA (PCR) Negative Micro: Microbiology 04/01/21 19:30 Mucosa - Nose SARS-CoV-2 Antigen (Rapid) - Final Radiology Impression Venous Doppler Study 04/01/21 16:10 Interpretation Summary There is no evidence of left lower extremity deep vein thrombosis. Left great saphenous vein appears patent and compressible segmentally. Normal flow patterns right common femoral vein No change from March 26, 2021 Ordering Physician: Fred Vick Referring Physician: Tom Crocker Performed By: Bertha Negrete, KENDALL, RVT
--- NOTE | 2021-04-02 13:57 | PCM.DC ---
Discharge Instructions Diet Discharge Diet: Low fat / Low cholesterol Activity Discharge Activity: Return to Normal Activity Dressing / Incision Call your doctor if you observe: Fever of 101 or Higher, Shortness of breath, Dizziness, Chest pain and Increased palpitations (irregular heartbeat) Follow Up Care Test Results: Test results from this visit will be discussed in further detail at your follow-up appointment, if applicable. Discharge Plan Admission Admit Date/Time: 04/01/21 20:20 Attending Provider: Harrison Evangelista Primary Care Provider: Tom Crocker Consulting Providers: Jac Owusu Instructions Patient Instructions: ED Chest Pain, Noncardiac Discharge Orders/Prescriptions Prescriptions: New ketoconazole 2 % cream 1 applic topical DAILY 14 Days Qty: 60 RF: 0 Continued pramipexole 0.25 mg tablet 0.25 mg PO TID RF: 0 albuterol sulfate 90 mcg/actuation HFA aerosol inhaler 2 puff INHALATION 4X/DAY PRN PRN (Reason: Dyspnea) RF: 0 primidone 50 mg tablet 50 mg PO BID RF: 0 tizanidine 2 mg capsule 2 mg PO TID PRN (Reason: BACK/LEG PAIN) RF: 0 allopurinol 300 MG tablet 300 mg PO DAILY RF: 0 gabapentin 100 mg capsule 200 mg PO BID RF: 0 hswkvjbno-bvtdgfjv-todosecmcz 50-200-200 mg tablet 1 tab PO TID RF: 0 furosemide 40 mg Tablet 40 mg PO BIDLX Qty: 60 RF: 0 potassium chloride [Klor-Con M20] 20 mEq Tablet,Er Particles/Crystals 20 meq PO DAILY Qty: 30 RF: 0 cefdinir 300 mg capsule 300 mg PO BID Qty: 14 RF: 0 triamcinolone acetonide 0.5 % cream 1 applic topical BID RF: 0 losartan 100 mg tablet 100 mg PO DAILY Qty: 90 RF: 4 amlodipine 10 mg tablet 10 mg PO DAILY Qty: 90 RF: 3 carvedilol 25 mg tablet 25 mg PO BID Qty: 180 RF: 3 Referrals / Follow Up: Tom Crocker DO [Primary Care Provider] - In 1 Week Benson Carlos MD [STAFF PHYSICIAN] - Within 2 Weeks Disposition Disposition (needs filled in before D/C Order can be placed): Home, Self Care
[2021-04-02 14:00] VITALS: BP 119/73; PULSE 68; RESP 18; TEMP 36.9; O2SAT 92
--- NOTE | 2021-04-02 14:06 | DS.PCM_ITS ---
Providers Date of Admission: 04/01/21 Primary Care Physician: Dr. Tom Crocker, DO Consultations 04/02/21 08:34 Consult: Infectious Disease Routine Consulting Provider: Jac Owusu Reason for Consult: ?cellulitis vs derm issue EMERGENT Consult: No MD Notified: Yes Date Notified: 04/02/21 Time Notified: 09:28 Method of Notification: office Reason For Visit: CELLULITIS LEFT LEG, FAILED OUTPATIENT TREATMENT Diagnosis Discharge Diagnosis (1) Cellulitis of left lower extremity without foot: Status: Acute Code(s): L03.116 - Cellulitis of left lower limb Medications at Discharge Home Medications allopurinol 300 mg PO DAILY 10/18/13 pramipexole 0.25 mg tablet 0.25 mg PO TID tab 01/01/18 losartan 100 mg tablet 100 mg PO DAILY #90 tab 10/29/20 albuterol sulfate 90 mcg/actuation aerosol inhaler 2 puff INHALATION 4X/DAY PRN PRN 11/21/20 primidone 50 mg tablet 50 mg PO BID tablet 11/21/20 tizanidine 2 mg capsule 2 mg PO TID PRN 11/21/20 amlodipine 10 mg tablet 10 mg PO DAILY #90 tablet 12/19/20 carvedilol 25 mg tablet 25 mg PO BID #180 tablet 12/19/20 qnhgybiej-wrwncpds-mdczqcuurd 1 tab PO TID 03/26/21 gabapentin 200 mg PO BID 03/26/21 cefdinir 300 mg PO BID #14 cap 03/31/21 furosemide 40 mg PO BIDLX #60 tab 03/31/21 potassium chloride [Klor-Con M20] 20 meq PO DAILY #30 tab 03/31/21 triamcinolone acetonide 1 applic TOPICAL BID 04/01/21 ketoconazole 1 applic TOPICAL DAILY 14 Days #60 g 04/02/21 Hospital Course Operations None Procedures None Summary of Care Provided Minutes Spent on Discharge: 40 Hospital Course: Per HPI: CAROLYN LCINTON, is a 70 M who presents to the emergency room for readmission of left leg cellulitis. Patient was discharged after a course of antibiotic treatment as an inpatient on March 31 and was given cefdinir as an outpatient. Since his discharge the area of his left lower leg has increased erythema and swelling with warmth and tenderness. The patient denies chest pain shortness of breath fevers or chills, nausea vomiting or diarrhea. There is also an area of the left upper leg from which the cellulitis emanates that appears to be hyperkeratotic consistent with dermatitis. The patient will be admitted to general medical floor placed on IV antibiotics for broad-spectrum coverage including MRSA. May consider consult to infectious disease specialist in the morning. Hospital Course: 1. Left lower extremity cellulitis with likely tinea [id number]-old male presented to the hospital with repeat swelling and erythema of his left lower extremity. He is afebrile without a leukocytosis and has no redness today. Swelling is negligible and a left lower ultrasound was negative for blood clot. Infectious disease was consulted and felt that this was likely a tinea corporis and recommended to topical ketoconazole 2% for 2 weeks. I also recommend that he follow-up with dermatology as an outpatient for further monitoring and evaluation. He may need a biopsy and or scraping as an outpatient this does not resolve. I discussed with him that he should come back to the hospital if he has a fever otherwise he can follow-up with his PCP as an outpatient. I would continue his antibiotics that he received on discharge from his previous hospitalization and complete that course. I discussed with him the plan for discharge today and he expressed understanding of the risk and benefits of going home and he would like to go home today. 2. Hypertension, non-STEMI, hyperlipidemia, obesity, Parkinson's disease, CKD 3 they are all chronic medical conditions which complicate his care. His home medications were continued where appropriate. Physical Exam Const alert, oriented x3 and no apparent distress General Appearance: cooperative HEENT normocephalic and moist oral mucous membranes Eyes PERRL, EOMs intact bilaterally and conjunctivae normal Neck supple and no JVD Resp normal respiratory effort, no retractions, no use of accessory muscles and clear to auscultation bilaterally Auscultation: Negative for crackles, rales, rhonchi or wheezes Cardio regular rate, regular rhythm, S1 normal heart sound, S2 normal heart sound and no murmurs GI soft to palpation, non-tender and non-distended; Negative for hepatosplenomegaly Extremity no clubbing, cyanosis or edema Skin Skin Narrative: An elevated dry scaly plaque on his left lateral proximal lower extremity. Denies any significant itching and no significant surrounding redness or warmth. Neuro no focal motor deficits and no sensory deficits noted Psych affect normal Appearance: appropriate Weight / BMI Weight Weight: 247 lb 12.793 oz Body Mass Index (BMI) 35.5 ABG / Lab / Microbiology Data Result Diagrams: 04/02/21 05:20 04/02/21 05:20 Laboratory: Laboratory Results - last 24 hr 04/01/21 16:47: WBC 5.9, RBC 3.31 L, Hgb 10.8 L, Hct 32.2 L, MCV 97.3 H, MCH 32.6 H, MCHC 33.5, RDW Std Deviation 50.1 H, RDW Coeff of Nir 14.0, Plt Count 176, MPV 10.7, Immature Gran % (Auto) 0.700, Neut % (Auto) 65.7, Lymph % (Auto) 17.7 L, [place] % (Auto) 9.2, Eos % (Auto) 6.0 H, Baso % (Auto) 0.7, Absolute Neuts (auto) 3.9, Absolute Lymphs (auto) 1.04, Nucleated RBC % 0 04/01/21 16:47: Sodium 138, Potassium 5.0, Chloride 107, Carbon Dioxide 28.0, Anion Gap 3 L, BUN 64 H, Creatinine 1.93 H, Estim Creat Clear Calc 36.77, Est GFR (MDRD) Af Amer 44 L, Est GFR (MDRD) Non-Af 37 L, BUN/Creatinine Ratio 33.2 H , Glucose 99, Calcium 8.5, Total Bilirubin 0.20, AST 26, ALT 22, Alkaline Phosphatase 78, Total Protein 7.0, Albumin 3.8, Globulin 3.2, Albumin/Globulin Ratio 1.2 04/01/21 16:47: Lactic Acid 0.5 04/01/21 19:55: Troponin I High Sens 10.9 04/02/21 05:20: Sodium 138, Potassium 4.8, Chloride 107, Carbon Dioxide 25.0, Anion Gap 6, BUN 60 H, Creatinine 1.76 H, Estim Creat Clear Calc 40.33, Est GFR (MDRD) Af Amer 49 L, Est GFR (MDRD) Non-Af 41 L, BUN/Creatinine Ratio 34.1 H, Glucose 101, Calcium 8.5 04/02/21 05:20: WBC 5.7, RBC 3.22 L, Hgb 10.5 L, Hct 33.6 L, MCV 104.3 H D, MCH 32.6 H, MCHC 31.3 L D, RDW Std Deviation 53.6 H, RDW Coeff of Nir 14.0, Plt Count 158, MPV 10.5, Immature Gran % (Auto) 0.900, Neut % (Auto) 62.5, Lymph % (Auto) 18.9 L, [place] % (Auto) 11.5 H, Eos % (Auto) 5.3 H, Baso % (Auto) 0.9, Absolute Neuts (auto) 3.5, Absolute Lymphs (auto) 1.07, Nucleated RBC % 0 04/02/21 10:50: MRSA (PCR) Negative Microbiology: Microbiology 04/01/21 19:30 Mucosa - Nose SARS-CoV-2 Antigen (Rapid) - Final Radiography Diagnostic Testing: Radiology Impression Venous Doppler Study 04/01/21 16:10 Interpretation Summary There is no evidence of left lower extremity deep vein thrombosis. Left great saphenous vein appears patent and compressible segmentally. Normal flow patterns right common femoral vein No change from March 26, 2021 Ordering Physician: Fred Vick Referring Physician: Tom Crocker Performed By: Bertha Negrete RDCS, RVT D/C Instructions Discharge Diet: Low fat / Low cholesterol Call your doctor if you observe: Fever of 101 or Higher, Shortness of breath, Dizziness, Chest pain and Increased palpitations (irregular heartbeat) Meaningful Use Info Meaningful Use Diagnoses (Choose all that apply): None applicable Discharge Plan Admission Admit Date/Time: 04/01/21 20:20 Attending Provider: Harrison Evangelista Primary Care Provider: Tom Crocker Consulting Providers: Jac Owusu Instructions Patient Instructions: ED Chest Pain, Noncardiac Discharge Orders/Prescriptions Prescriptions: New ketoconazole 2 % cream 1 applic topical DAILY 14 Days Qty: 60 RF: 0 Continued pramipexole 0.25 mg tablet 0.25 mg PO TID RF: 0 albuterol sulfate 90 mcg/actuation HFA aerosol inhaler 2 puff INHALATION 4X/DAY PRN PRN (Reason: Dyspnea) RF: 0 primidone 50 mg tablet 50 mg PO BID RF: 0 tizanidine 2 mg capsule 2 mg PO TID PRN (Reason: BACK/LEG PAIN) RF: 0 allopurinol 300 MG tablet 300 mg PO DAILY RF: 0 gabapentin 100 mg capsule 200 mg PO BID RF: 0 nlceaueps-yzyodovb-dtvmrxwuye 50-200-200 mg tablet 1 tab PO TID RF: 0 furosemide 40 mg Tablet 40 mg PO BIDLX Qty: 60 RF: 0 potassium chloride [Klor-Con M20] 20 mEq Tablet,Er Particles/Crystals 20 meq PO DAILY Qty: 30 RF: 0 cefdinir 300 mg capsule 300 mg PO BID Qty: 14 RF: 0 triamcinolone acetonide 0.5 % cream 1 applic topical BID RF: 0 losartan 100 mg tablet 100 mg PO DAILY Qty: 90 RF: 4 amlodipine 10 mg tablet 10 mg PO DAILY Qty: 90 RF: 3 carvedilol 25 mg tablet 25 mg PO BID Qty: 180 RF: 3 Referrals / Follow Up: Tom Crocker DO [Primary Care Provider] - In 1 Week Benson Carlos MD [STAFF PHYSICIAN] - Within 2 Weeks Disposition Disposition (needs filled in before D/C Order can be placed): Home, Self Care Charges/Coding Visit Charges Inpatient E&M: 87030 Disch Hosp
--- NOTE | 2021-04-03 15:10 | CASEMGMT ---
TRUDY ARECHIGA Discharge Follow-Up Phone Call. Trish: 11 Strata: 3 Discharge Date: 04/02/21 Adm Dx: Cellulitis lt leg Call to pt to inquire about how he has been doing since being discharged from the hospital. Pt states he has been doing well and has been keeping his left foot/leg elevated. He states the swelling is staying down. He states he was able to get the Ketoconazole cream prior to leaving the hospital and has been applying it as ordered. He is aware he had an appt scheduled w/Dr Crocker for Apr 08, but states he actually has an appt to see him tomorrow. He is aware Dr Carlos's office to be calling him to schedule an appt in the next [address] Carlos's # and plans to call the office if he does not hear from them. Pt inquired about continuing the PO atb/Cefdinir, stating he thought someone had told him to stop taking it and he also thought the ID doctor was planning on starting him on a new atb. Pt also inquired if he is to be using both the Triamcinolone cream and the Ketoconazole. Pt informed that this TRUDY ARECHIGA would clarify this and call him back. CM spoke w/Dr Evangelista re: PO Cefdinir. He confirmed he does wish for pt to complete the 7 day course of atbs. CM clarified orders w/Dr Owusu, ID. Dr Owusu aware Dr Evangelista wishes for pt to complete the Cefdinir and per Dr Owusu and states he does not wish to start pt on any new antibiotics. Also, pt to stop the Triamcinolone cream and is to just use the Ketoconazole cream. Call placed back to pt. He was made aware he is to complete the atb/Cefdinir as ordered, to stop the Triamcinolone cream, and to continue using the Ketoconazole. He voices understanding and voices appreciation for the clarification. He denies having any other concerns or questions and thanked TRUDY ARECHIGA for calling. Haven GARNICA RN, CM
== END 2021-04-02 15:38 | disposition home or self-care (01) | DRG 603 ==
LOC: ED 16:20 → MS3 04-02 07:13
PROVIDERS: Admitting Provider Family Medicine; Emergency Provider Emergency Medicine; PCP Family Medicine; Visit Provider Family Medicine
DX: L03.116 Cellulitis of left lower limb (principal); G20 Parkinson's disease; C62.91 Malignant neoplasm of right testis, unspecified whether descended or undescended; N18.30 Chronic kidney disease, stage 3 unspecified; I12.9 Hypertensive chronic kidney disease with stage 1 through stage 4 chronic kidney disease, or unspecified chronic kidney disease; I25.2 Old myocardial infarction; E78.5 Hyperlipidemia, unspecified; E66.9 Obesity, unspecified; Z68.35 Body mass index [BMI] 35.0-35.9, adult; M10.9 Gout, unspecified; G47.33 Obstructive sleep apnea (adult) (pediatric); Z79.899 Other long term (current) drug therapy; G89.29 Other chronic pain
CPT/HCPCS: 36415; 80048; 80053; 83605; 84484; 85025; 87426; 87641; 93971; 96365; 96367; 96372; 99218; 99285; J7040; A4216; G0378; J0295; J0696

== ENCOUNTER 2021-09-20 14:36 | Outpatient (CLI) | payer MEDICARE, SELFPAY ==
--- NOTE | 2021-09-20 14:46 | CT_ITS ---
STUDY: CT CHEST WITHOUT CONTRAST REASON FOR EXAM: Male, 70 years old. Decreased pulmonary functions. RADIATION DOSAGE (If Supplied By Facility): CTDIvol = ( 18.77 ) mGy, DLP = ( 703.57 ) mGycm TECHNIQUE: Transaxial imaging was performed without the administration of intravenous contrast material. Multiplanar coronal and sagittal images were reformatted. Individualized dose optimization techniques were used for this CT. COMPARISON: None. FINDINGS: There are small bilateral benign appearing axillary lymph nodes. Increased linear markings at the right lung base with areas of confluence and bronchiectasis suggestive of right basilar scarring. There is no demonstrated pleural abnormality. There are calcifications of the coronary arteries. Normal mediastinum. Normal hilar regions. Normal unenhanced pulmonary arteries. There is atherosclerotic calcification of the aortic arch with tortuosity and elongation of the aortic arch and descending thoracic aorta. There are degenerative changes of the thoracic spine. Small gallstones. Multiple cysts are seen in the upper pole of both kidneys more prominent on the right side. CT/Chest without Contrast IMPRESSION: Findings in keeping with right basilar scarring. Electronically Signed: Victor Manuel Hameed MD at 15:13 EST , Service support ,
== END 2021-09-20 23:59 | disposition short-term general hospital (02) ==
PROVIDERS: PCP Family Medicine; Referring Provider Internal Medicine Pulmonary Disease; Visit Provider Internal Medicine Pulmonary Disease
DX: R06.00 Dyspnea, unspecified (principal)
CPT/HCPCS: 71250

== ENCOUNTER 2021-09-23 09:56 | Outpatient (CLI) | payer MEDICARE, SELFPAY | END 2021-09-23 23:59 | disposition short-term general hospital (02) | PROVIDERS: PCP Family Medicine; Referring Provider Physician Assistant Medical; Visit Provider Physician Assistant Medical | DX: I10 Essential (primary) hypertension (principal) | CPT/HCPCS: 93788 ==

== ENCOUNTER 2021-09-25 08:46 | Outpatient (CLI) | payer MEDICARE, SELFPAY ==
--- NOTE | 2021-09-25 12:29 | NEURO ---
NCS and/or EMG Patient Report Ordering Doctor: Tom Crocker DATE OF SERVICE: 09/25/21 Tez presents for electrodiagnostic testing of the lower limbs. He reports tightness and aching in the hamstring and calf bilaterally. Electrodiagnostic findings: Peroneal motor nerve demonstrates normal distal latency and amplitude on the right side with reduced conduction velocity. Left peroneal motor responses within normal limits. Decreased right tibial conduction velocity. Prolonged left tibial motor latency. Absent left sural response. Normal superficial peroneal and plantar responses bilaterally. On needle EMG, all muscles tested in the lower limbs showed no evidence of denervation with normal motor unit action potentials. Electrodiagnostic impression: This is an abnormal study in the lower limbs. 1. 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 2. No electrodiagnostic evidence is noted for lumbosacral radiculopathy.
== END 2021-09-25 23:59 | disposition short-term general hospital (02) ==
LOC: PSN 08:48
PROVIDERS: PCP Family Medicine; Referring Provider Family Medicine; Visit Provider Family Medicine
DX: M79.604 Pain in right leg (principal); M79.605 Pain in left leg
CPT/HCPCS: 95886; 95913

== ENCOUNTER 2021-11-08 09:52 | Outpatient (CLI) | payer MEDICARE, SELFPAY ==
--- NOTE | 2021-11-08 09:56 | VDLE_ITS ---
Reason For Study: venous insufficiency RIGHT LEFT CFV is compressible, spontaneous, phasic, CFV is compressible, spontaneous, phasic, competent and demonstrates normal competent, and demonstrates normal augmentation. augmentation. FV is compressible, spontaneous, phasic, FV is compressible, spontaneous, phasic, competent and demonstrates normal competent and demonstrates normal augmentation. augmentation. POP V is compressible, spontaneous, phasic, POP V is compressible, spontaneous, phasic, competent and demonstrates normal competent and demonstrates normal augmentation. augmentation. T/P Trunk is compressible. T/P Trunk is compressible. PTV is compressible. PTV is compressible. RT PerV is compressible. LT PerV is compressible. SFJ is competent and measures 0.82 x 0.75 cm. SFJ is competent and measures 0.51 x 0.66 cm. GSV proximal thigh measures 0.56 x 0.52 cm. GSV proximal thigh measures 0.50 x 0.49 cm. GSV at knee measures 0.39 x 0.37 cm. GSV at knee measures 0.47 x 0.46 cm. GSV is competent throughout. GSV is competent throughout. SSV proximal calf is competent and measures SSV proximal calf is competent and measures 0.20 x 0.19 cm. 0.32 x 0.28 cm. Procedure This is a venous duplex using B-mode, color flow and spectral Doppler. Exam performed in department. The exam was diagnostic. VL/Venous Duplex US - Richard Extrem Interpretation Summary Bilateral lower extremities with no evidence of DVT. No evidence of deep or sup erficial reflux. Bilateral GSV's measuring around 5 mm. Ordering Physician: Giovanni Helton Referring Physician: Tom Crocker Performed By: Bertha Negrete, RDCS, RVT
== END 2021-11-08 23:59 | disposition home or self-care (01) ==
LOC: CVS 09:55
PROVIDERS: PCP Family Medicine; Referring Provider Surgery Vascular Surgery; Visit Provider Surgery Vascular Surgery
DX: M79.89 Other specified soft tissue disorders (principal); G20 Parkinson's disease; M79.606 Pain in leg, unspecified; I10 Essential (primary) hypertension; L30.9 Dermatitis, unspecified; I83.893 Varicose veins of bilateral lower extremities with other complications; J45.909 Unspecified asthma, uncomplicated
CPT/HCPCS: 93970

== ENCOUNTER 2021-11-19 10:58 | Outpatient (CLI) | payer MEDICARE, SELFPAY ==
[2021-11-19 12:47] LABS: Anion Gap 3 (5-15); BUN 38 mg/dL (7-18); BUN/Creat Ratio 27.5 RATIO (10-20); Calcium,Total 8.9 mg/dL (8.5-10.1); Chloride 108 mmol/L (98-107); Creatinine, Serum 1.38 mg/dL (0.70-1.30); EST Glomerular Filtration Rate 54 mL/min (>60); Est Glom Filt Rate - Afr Amer 65 mL/min (>60); Glucose 109 mg/dL (74-106); Potassium 5.2 mmol/L (3.5-5.1); Sodium Level 138 mmol/L (136-145)
== END 2021-11-19 23:59 | disposition home or self-care (01) ==
LOC: LAB 10:59
PROVIDERS: PCP Family Medicine; Referring Provider Physician Assistant Medical; Visit Provider Physician Assistant Medical
DX: I10 Essential (primary) hypertension (principal)
CPT/HCPCS: 36415; 80048

== ENCOUNTER 2021-11-27 12:53 | Outpatient (CLI) | payer MEDICARE, SELFPAY ==
--- NOTE | 2021-11-27 13:00 | RAD_ITS ---
STUDY: X-RAY - RIGHT ANKLE REASON FOR EXAM: Male, 71 years old. CHRONIC PAIN TECHNIQUE: 3 view(s) of the ankle. COMPARISON: None. FINDINGS: Normal visualized distal tibia and fibula. Normal medial and lateral malleoli. Normal tibiotalar articulation and ankle mortise. Normal visualized talus and calcaneus. The visualized subtalar, talonavicular, calcaneocuboid and tarsal articulations are normal. The soft tissue structures are unremarkable. RAD/Ankle min 3 Views IMPRESSION: Normal x-ray examination of the ankle. Electronically Signed: Noe Gray MD at 13:43 EDT ,
--- NOTE | 2021-11-27 13:00 | RAD_ITS ---
STUDY: X-RAY - RIGHT KNEE REASON FOR EXAM: Male, 71 years old. CHRONIC PAIN TECHNIQUE: 4 view(s) of the knee. COMPARISON: None. FINDINGS: Normal visualized distal femur. Normal visualized proximal tibia and fibula. Normal proximal tibiofibular articulation. Normal medial femorotibial compartment. Normal lateral femorotibial compartment. Normal patellofemoral articulation. The soft tissue structures are unremarkable. RAD/Knee 4 or More Views IMPRESSION: Normal x-ray examination of the knee. Electronically Signed: Noe Gray MD at 13:43 EDT ,
[2021-11-27 13:42] LABS: Erythrocyte Sedimentation Rate 16 mm/hr (0-20)
[2021-11-27 13:59] LABS: CRP < 2.90 mg/L (0.0-3.0)
[2021-11-27 14:02] LABS: Vitamin B12 565 pg/mL (211-911)
[2021-11-29 16:54] LABS: ANTINUCLEAR ANTIBODIES DIRECT Negative (Negative)
[2021-12-11 10:09] LABS: Albumin 3.7 g/dL (2.9-4.4); Alpha-1-Globulins 0.2 g/dL (0.0-0.4); Alpha-2-Globulins 0.9 g/dL (0.4-1.0); Gamma Globulin 0.4 g/dL (0.4-1.8); Immunoglobulin A 66 mg/dL (61-437); Immunoglobulin G 440 mg/dL (603-1613); PROEL- TOTAL PROTEIN 6.2 g/dL (6.0-8.5)
[2021-12-12 16:00] LABS: Immunoglobulin M 7 mg/dL (15-143)
[2021-12-12 16:01] LABS: VITAMIN B6 125.3 ug/L (5.3-46.7); Vitamin B1, Thiamine 97.1 nmol/L (66.5-200.0)
== END 2021-11-27 23:59 | disposition home or self-care (01) ==
LOC: LAB 12:55
PROVIDERS: PCP Family Medicine; Referring Provider Psychiatry & Neurology Neurology; Visit Provider Psychiatry & Neurology Neurology
DX: R20.0 Anesthesia of skin (principal); R20.2 Paresthesia of skin; M25.561 Pain in right knee; G89.29 Other chronic pain; M25.571 Pain in right ankle and joints of right foot
CPT/HCPCS: 36415; 73564; 73610; 82607; 82784; 84165; 84207; 84425; 85652; 86038; 86140; 86334

== ENCOUNTER → 2021-12-30 | Outpatient (CLI) | payer MEDICARE, SELFPAY ==
--- NOTE | 2021-12-30 08:55 | VDLE_ITS ---
Reason For Study: Varicose veins, s/p BLE GSV Venaseal Ablation RIGHT LEFT CFV is compressible, spontaneous, phasic, CFV is compressible, spontaneous, phasic, competent and demonstrates normal competent, and demonstrates normal augmentation. augmentation. FV is compressible, spontaneous, phasic, FV is compressible, spontaneous, phasic, competent and demonstrates normal competent and demonstrates normal augmentation. augmentation. POP V is compressible, spontaneous, phasic, POP V is compressible, spontaneous, phasic, competent and demonstrates normal competent and demonstrates normal augmentation. augmentation. T/P Trunk is compressible. T/P Trunk is compressible. PTV is compressible. PTV is compressible. RT PerV is compressible. LT PerV is compressible. GSV from junction to knee is noncompressible GSV from junction to knee is noncompressible s/p Venaseal. s/p Venaseal. GSV below knee is compressible. GSV below knee is compressible. Procedure This is a venous duplex using B-mode, color flow and spectral Doppler. Exam performed in department. VL/Venous Duplex US - Richard Extrem Interpretation Summary Bilateral lower extremities with no evidence of DVT. Bilateral greater saphenou s veins ablated. Ordering Physician: Giovanni Helton Referring Physician: Tom Crocker Performed By: Ashely Underwood RVT
== END | disposition home or self-care (01) ==
LOC: CVS 08:54
PROVIDERS: PCP Family Medicine; Referring Provider Surgery Vascular Surgery; Visit Provider Surgery Vascular Surgery
DX: I83.893 Varicose veins of bilateral lower extremities with other complications (principal); G20 Parkinson's disease; M79.89 Other specified soft tissue disorders; M79.606 Pain in leg, unspecified; I10 Essential (primary) hypertension; L30.9 Dermatitis, unspecified; J45.909 Unspecified asthma, uncomplicated
CPT/HCPCS: 93970

== ENCOUNTER → 2022-02-13 | Outpatient (CLI) | payer MEDICARE, SELFPAY ==
--- NOTE | 2022-02-13 15:24 | MRI_ITS ---
STUDY: MR Spine Lumbar W/O Contrast 02/13/2022 8:28 PM REASON FOR EXAM: Male, 71 years old. Back pain BILATERAL LEG PAIN AND CRAMPING;INTERVERTEBRAL DIC DEGENERATION -- HX OF TESTICULAR CANCER TECHNIQUE: MR Spine Lumbar W/O Contrast Standardized fat and water weighted pulse sequences were obtained. COMPARISON: None FINDINGS: There is straightening of the normal lumbar lordosis. There is no substantial scoliosis. Normal conus medullaris that terminates at the L1. Partially visualized multiple bilateral renal cysts consistent for polycystic kidney disease. L1-2: Loss of intervertebral disc height. There is endplate spondylosis of the vertebral body. Normal central canal and intervertebral neuroforamina. There is bilateral facet arthropathy. There is bilateral ligamentum flavum thickening. Posterior disc bulge. L2-3: Loss of intervertebral disc height. There is endplate spondylosis of the vertebral body. Normal central canal and intervertebral neuroforamina. There is bilateral facet arthropathy. There is bilateral ligamentum flavum thickening. Posterior disc bulge. L3-4: Loss of intervertebral disc height. There is endplate spondylosis of the vertebral body. There is bilateral facet arthropathy. There is narrowing of the right intervertebral neuroforamina with compression of the exiting nerve root. There is bilateral ligamentum flavum thickening. Disc desiccation. Moderate spinal stenosis. L4-5: Loss of intervertebral disc height. There is endplate spondylosis of the vertebral body. There is bilateral facet arthropathy. There is narrowing of the right intervertebral neuroforamina with compression of the exiting nerve root. There is bilateral ligamentum flavum thickening. Disc desiccation. Severe spinal stenosis. L5-S1: Loss of intervertebral disc height. There is endplate spondylosis of the vertebral body. There is bilateral facet arthropathy. There is narrowing of the left intervertebral neuroforamina with compression of the exiting nerve root. There is bilateral ligamentum flavum thickening. Disc desiccation. No spinal stenosis. Normal visualized sacral ala. Normal visualized paraspinous soft tissue structures. MRI/Spine Lumbar (Routine) IMPRESSION: Multilevel degenerative changes, as described above. Partially visualized multiple bilateral renal cysts consistent for polycystic kidney disease. There is mild straightening of the normal lumbar lordosis. This can suggest back strain. L3-4: There is narrowing of the right intervertebral neuroforamina with compression of the exiting nerve root. There is bilateral ligamentum flavum thickening. Disc desiccation. Moderate spinal stenosis. L4-5: There is narrowing of the right intervertebral neuroforamina with compression of the exiting nerve root. There is bilateral ligamentum flavum thickening. Disc desiccation. Severe spinal stenosis. L5-S1: There is narrowing of the left intervertebral neuroforamina with compression of the exiting nerve root. Disc desiccation. No spinal stenosis. Electronically Signed: Vladislav Donaldson MD at 20:32 EDT ,
== END | disposition home or self-care (01) ==
LOC: MRI 15:21
PROVIDERS: PCP Family Medicine; Visit Provider Family Medicine
DX: M51.36 Other intervertebral disc degeneration, lumbar region (principal); M79.604 Pain in right leg; M79.605 Pain in left leg
CPT/HCPCS: 72148

== ENCOUNTER → 2022-05-28 | Outpatient (CLI) | payer MEDICARE, SELFPAY ==
--- NOTE | 2022-05-28 07:15 | ECHOD_ITS ---
Version 2 Reason For Study: Murmur Procedure This was a 2D Doppler, Color Flow transthoracic echocardiogram. Exam performed in department. Left Ventricle Normal LV size. Mild concentric left ventricular hypertrophy. Left ventricular systolic function is normal. The estimated ejection fraction is 55 %. Stage 1 diastolic dysfunction. No regional wall motion abnormalities noted. Right Ventricle Normal RV size. Normal systolic function. Atria The left atrium is mildly enlarged. Normal right atrium. Mitral Valve There is mild mitral annular calcification. Mild-Moderate (1-2+) eccentric mitral valve insufficiency. Tricuspid Valve Normal tricuspid valve. Mild tricuspid valve insufficiency. Pulmonary artery systolic pressure is 24 mmHg. Aortic Valve Trisinus/trileaflet aortic valve. Mild focal aortic valve thickening. Mild aortic stenosis. Mean aortic valve gradient 13 mmHg. Pulmonic Valve Normal pulmonic valve. Great Vessels Normal aortic root. The pulmonary artery is normal size. Normal inferior vena cava. Pericardium/Pleural No pericardial effusion. MMode/2D Measurements & Calculations LVIDd: 4.4 cm IVSd: 1.3 cm LVOT diam: 2.1 cm LVIDs: 2.8 cm LVPWd: 1.4 cm LVOT area: 3.6 cm2 RVDd: 3.5 cm FS: 36.9 % Ao root diam: 3.8 cm LAV(MOD-bp): 90.1 ml LVAd ap4: 36.6 cm2 LAV(MOD-bp) Indexed: 39.3 ml/m2 LVLd ap4: 9.0 cm LAV(MOD-sp2): 83.9 ml EDV(MOD-sp4): 121.4 ml LAV(MOD-sp4): 80.9 ml EDV(sp4-el): 126.2 ml LVAs ap4: 19.5 cm2 LVLs ap4: 7.9 cm ESV(MOD-sp4): 42.6 ml ESV(sp4-el): 40.7 ml EF(MOD-sp4): 64.9 % EF(sp4-el): 67.7 % LVAd ap2: 30.9 cm2 SV(MOD-sp4): 78.8 ml SV(MOD-sp2): 59.2 ml LVLd ap2: 9.0 cm EDV(MOD-sp2): 93.7 ml EDV(sp2-el): 90.6 ml LVAs ap2: 17.6 cm2 LVLs ap2: 8.1 cm ESV(MOD-sp2): 34.5 ml ESV(sp2-el): 32.5 ml EF(MOD-sp2): 63.2 % SV(sp4-el): 85.5 ml LA dimension(2D): 4.5 cm LA A4 area: 23.2 cm2 RA A4 area: 12.6 cm2 Doppler Measurements & Calculations MV E max derek: 73.6 cm/sec Lat Peak E' Derek: 5.3 cm/sec Med Peak E' Derek: 4.9 cm/sec MV A max derek: 139.3 cm/sec E/E' lat: 13.9 E/E' med: 15.2 MV E/A: 0.53 MV V2 max: 146.7 cm/sec MV P1/2t max derek: 82.6 cm/sec Ao V2 max: 247.6 cm/sec MV max P.6 mmHg MV P1/2t: 133.9 msec Ao max P.6 mmHg MV V2 mean: 76.1 cm/sec MV dec slope: 180.6 cm/sec2 Ao V2 mean: 171.2 cm/sec MV mean P.7 mmHg Ao mean P.2 mmHg MV V2 VTI: 43.4 cm MVA(P1/2t): 1.6 cm2 Ao V2 VTI: 55.3 cm MVA(VTI): 2.1 cm2 RAFAT(I,D): 1.6 cm2 RAFAT(V,D): 1.6 cm2 LV V1 max: 108.2 cm/sec SV(LVOT): 91.1 ml PA V2 max: 110.3 cm/sec LV V1 max P.7 mmHg LV V1 mean P.4 mmHg LV V1 mean: 73.4 cm/sec LV V1 VTI: 25.3 cm TR max derek: 225.6 cm/sec TR max P.4 mmHg ECHO/Echo Complete Interpretation Summary Normal LV size. Left ventricular systolic function is normal. The estimated ejection fraction is 55 %. Stage 1 diastolic dysfunction. There is mild mitral annular calcification. Mild-Moderate (1-2+) eccentric mitral valve insufficiency. Mild focal aortic valve thickening. Mild concentric left ventricular hypertrophy. The left atrium is mildly enlarged. Mean aortic valve gradient 13 mmHg. Ordering Physician: Federico Chacko Referring Physician: Tom Crocker Performed By: Latanya Zapata RDCS
== END | disposition home or self-care (01) ==
LOC: CVS 07:13
PROVIDERS: PCP Family Medicine; Referring Provider Internal Medicine Cardiovascular Disease; Visit Provider Internal Medicine Cardiovascular Disease
DX: I25.10 Atherosclerotic heart disease of native coronary artery without angina pectoris (principal); R01.1 Cardiac murmur, unspecified
CPT/HCPCS: 93306

== ENCOUNTER → 2022-05-30 | Outpatient (CLI) | payer MEDICARE, SELFPAY ==
[2022-05-30 10:46] LABS: Anion Gap 8 (5-15); BUN 61 mg/dL (7-18); BUN/Creat Ratio 33.7 RATIO (10-20); Calcium,Total 8.8 mg/dL (8.5-10.1); Chloride 105 mmol/L (98-107); Creatinine, Serum 1.81 mg/dL (0.70-1.30); EST Glomerular Filtration Rate 39 mL/min (>60); Est Glom Filt Rate - Afr Amer 48 mL/min (>60); Glucose 110 mg/dL (74-106); Potassium 4.8 mmol/L (3.5-5.1); Sodium Level 137 mmol/L (136-145)
== END | disposition home or self-care (01) ==
LOC: LAB 09:18
PROVIDERS: Internal Medicine Cardiovascular Disease; PCP Family Medicine
DX: S37.009A Unspecified injury of unspecified kidney, initial encounter (principal)
CPT/HCPCS: 36415; 80048

== ENCOUNTER → 2022-06-20 | Outpatient (CLI) | payer MEDICARE, SELFPAY ==
[2022-06-20 09:49] LABS: Anion Gap 4 (5-15); BUN 36 mg/dL (7-18); BUN/Creat Ratio 25.7 RATIO (10-20); Calcium,Total 8.8 mg/dL (8.5-10.1); Chloride 111 mmol/L (98-107); EST Glomerular Filtration Rate 53 mL/min (>60); Est Glom Filt Rate - Afr Amer 64 mL/min (>60); Glucose 119 mg/dL (74-106); Sodium Level 139 mmol/L (136-145)
== END | disposition home or self-care (01) ==
LOC: LAB 08:52
PROVIDERS: PCP Family Medicine; Referring Provider Family Medicine; Visit Provider Family Medicine
DX: N18.31 Chronic kidney disease, stage 3a (principal)
CPT/HCPCS: 36415; 80048

== ENCOUNTER → 2022-11-04 | Outpatient (CLI) | payer MEDICARE, SELFPAY ==
[2022-11-04 12:42] LABS: Erythrocyte Sedimentation Rate 9 mm/hr (0-20)
[2022-11-04 12:54] LABS: Magnesium 2.3 mg/dL (1.6-2.6)
[2022-11-04 13:05] LABS: Vitamin B12 416 pg/mL (211-911); Vitamin D,25 Hydroxy 27.9 ng/mL
[2022-11-04 15:21] LABS: CPK Total, Creatine Kinase 86 U/L (39-308)
== END | disposition home or self-care (01) ==
LOC: BFHLAB 10:01
PROVIDERS: PCP Family Medicine; Visit Provider Family Medicine
DX: R25.2 Cramp and spasm (principal); R53.83 Other fatigue; E55.9 Vitamin D deficiency, unspecified
CPT/HCPCS: 36415; 82306; 82550; 82607; 83735; 85652

== ENCOUNTER → 2022-12-02 | Outpatient (CLI) | payer MEDICARE, SELFPAY ==
[2022-12-02 11:31] LABS: Absolute Lymphocyte Count 0.93 X10^3/uL (0.83-4.51); Absolute Neutrophil Count 4.1 X10^3/uL (2.0-7.7); Basophil# 0.05 X10^3/uL; Basophil% 0.9 % (0-1); Eosinophil# 0.18 X10^3/uL; Eosinophils% 3.1 % (0-5); Hematocrit 29.4 % (40-54); Hemoglobin 9.9 g/dL (13.0-16.5); Lymphocyte # 0.93 X10^3/ul (0.83-4.51); Lymphocyte % 15.8 % (19-41); Mean Corp Hgb Conc 33.7 g/dL (32-36); Mean Corpuscular Hgb 30.8 pg (27.0-32.0); Mean Corpuscular Volume 91.6 fL (80-94); Monocyte# 0.56 X10^3/uL; Monocyte% 9.5 % (0-10); NRBC Flagged by Analyzer 0 % (0-5); Neutrophil # 4.12 X10^3/uL (2.7-7.7); Platelet Count 181 K/mm3 (150-450); RBC Distribution Width CV 12.9 % (11.6-14.6); RBC Distribution Width SD 42.9 fl (35.1-43.9); Red Blood Count 3.21 M/mm3 (4.6-6.2); White Blood Count 5.9 K/mm3 (4.4-11.0)
== END | disposition home or self-care (01) ==
LOC: LAB 10:58
PROVIDERS: PCP Family Medicine; Referring Provider Internal Medicine Pulmonary Disease; Visit Provider Internal Medicine Pulmonary Disease
DX: R06.00 Dyspnea, unspecified (principal)
CPT/HCPCS: 36415; 85025

== ENCOUNTER 2023-01-07 09:46 | Day surgery (SDC) | payer MEDICARE, SELFPAY ==
[2023-01-07] VITALS (7 sets, daily range): BP systolic 170–181; BP diastolic 88–98; PULSE 53–78; RESP 16–17; TEMP 36.1–36.6; O2SAT 92–97; BMI 34.5
--- NOTE | 2023-01-07 10:21 | PCM.HP.STD ---
HPI - General General Date of Admission: 01/07/23 HPI Narrative CAROLYN CLINTON, is a 72 M who presents for incisional hernia repair with mesh at his umbilicus. Patient denies pain at the site however is continued to get larger over time. Patient did have a CT abdomen pelvis when he went to the ER which showed decrease musculature of the right side of the abdomen likely due to denervation to the muscle due to his previous right abdominal surgery for lymph node dissection. office visit 11/11/22 HPI HPI: 71-year-old male presents due to umbilical hernia.? Patient states she has had this for a long time however he states it has gotten bigger over time and thinks it is time for her to get it repaired.? Patient denies any pain.? Patient did have testicular cancer which involved a lymph node dissection including right abdominal approach to the retroperitoneum in . [facility] Medical History Back pain Cancer Cardiology follow-up encounter Cellulitis of left lower extremity without foot CKD (chronic kidney disease) CPAP (continuous positive airway pressure) dependence Dietary restriction Elevated blood pressure reading in office with white coat syndrome, without diagnosis of hypertension Essential (primary) hypertension Gout History of echocardiogram History of edema History of non-ST elevation myocardial infarction (NSTEMI) (11/26/20) History of pain when walking History of stress test Hx of undescended testicle Hyperlipidemia Leg cramps Low iron Non-smoker Nonobstructive atherosclerosis of coronary artery Nonrheumatic aortic (valve) stenosis Obesity Parkinsons disease Restless legs Testicular malignancy Tremor, essential Uncontrolled hypertension Varicose veins of both lower extremities Wears dentures Wears glasses Wears hearing aid in both ears Home Medications pramipexole 0.25 mg tablet 0.25 mg PO TID restless legs 01/01/18 [History Last Taken 04/01/21] primidone 50 mg tablet 100 mg PO BID seizures 11/21/20 [History Last Taken 04/01/21] tizanidine 2 mg capsule 2 mg PO TID PRN BACK/LEG PAIN 11/21/20 [History Last Taken Unknown] carbidopa 50 mg-levodopa 200 mg-entacapone 200 mg tablet 1 tab PO TID parkinsons 03/26/21 [History Last Taken 04/01/21] triamcinolone acetonide 0.5 % topical cream 1 applic topical PRN PRN CELLULITIS 04/01/21 [History Last Taken 04/01/21] cholecalciferol (vitamin D3) 50 mcg (2,000 unit) capsule 50 mcg PO DAILY 07/05/21 [History Last Taken Unknown] ascorbic acid (vitamin C) 500 mg capsule 500 mg PO TID 05/15/22 [History Last Taken Unknown] aspirin 81 mg tablet,delayed release (Adult Aspirin Regimen) 81 mg PO DAILY 05/15/22 [History Last Taken 12/31/22] magnesium 250 mg tablet 500 mg PO DAILY 05/15/22 [History Last Taken Unknown] hydralazine 50 mg tablet 100 mg PO TID 11/11/22 [History Last Taken Unknown] carvedilol 25 mg tablet 25 mg PO BID 12/31/22 [History Last Taken Unknown] doxazosin 2 mg tablet 1 mg PO QHS 12/31/22 [History Last Taken Unknown] ferrous sulfate 142 mg (45 mg iron) tablet,extended release (Slow Fe) 142 mg PO DAILY 12/31/22 [History Last Taken Unknown] hydrochlorothiazide 12.5 mg tablet 12.5 mg PO QODAY 12/31/22 [History Last Taken Unknown] levocetirizine 5 mg tablet 5 mg PO QPM 12/31/22 [History Last Taken Unknown] amlodipine 10 mg tablet 10 mg PO QHS 01/06/23 [History Last Taken Unknown] Allergy/AdvReac Type Severity Reaction Status Date / Time clindamycin Allergy Swelling Verified 01/07/23 10:27 Sulfa (Sulfonamide Allergy Unknown Verified 01/07/23 10:27 Antibiotics) allopurinol AdvReac Intermediate Possible Verified 01/07/23 10:27 cause of rash on legs: went away after stopping simvastatin AdvReac myalgia Verified 01/07/23 10:27 Family History Father CAD (coronary artery disease) Sudden cardiac , Onset Age: 59 Myocardial infarction, Onset Age: 59 Hypertension Mother Heart disease Hypertension Brother Sudden cardiac , Onset Age: 68 Surgical History History of colonoscopy History of left heart catheterization (01/21/21) History of lymph node excision History of surgical removal of testicle History of tonsillectomy Social History Smoking Status: Never smoker alcohol intake: never substance use type: does not use caffeine: No what type of physical activity do you participate in: bicycling frequency: 1-2 times per week duration: 30-45 minutes/day seatbelt use: always do you feel safe at home: Yes Physical Exam Const alert, oriented x3 and no apparent distress HEENT normocephalic and head/scalp atraumatic Resp normal respiratory effort Cardio regular rate GI soft to palpation and non-tender; Negative for non-distended GI Narrative: Patient does have a large vertical incision along his flank as well as horizontal at the epigastric from his lymph node dissection in the 80s due to testicular cancer.? Patient appears to have a loss of domain on the right side of his abdomen due to the previous surgery as he has protrusion of that side with sitting up. Palpation: hernia umbilical (3 cm-reducible); Negative for guarding Extremity no clubbing, cyanosis or edema Neuro CN's II-XII intact bilaterally Psych mental status grossly normal Assessment & Plan Assessment/Plan (1) Umbilical hernia without mention of obstruction or gangrene: (2) Incisional hernia: PLAN: Plan Discussed with patient would do an open/laparoscopic repair of his umbilical hernia due to the loss of domain on the right due to denervation of the muscle after his surgery in the . Risk would include but not limited to bleeding, infection, recurrence, injury to another organ and anesthesia. Patient and his had no further question this time. Kathy Malone M.D. Pager: [phone] [facility] [address] [place] [address], [address] [place] [address] Office: [phone]
[2023-01-07] MEDS: Lactated Ringers 1,000 ML 15 ML IV (10:28)
[2023-01-07] MEDS: Cefazolin 2 GM in 0.9% Normal Saline 100 ML IV (11:21)
--- NOTE | 2023-01-07 12:32 | OP.PCM_ITS ---
Report of Operation Date of Procedure: 01/07/23 Surgery/Procedure Performed:: laparoscopic and open umbilical hernia repair with mesh Surgeon: Kathy Malone cream separator operator: Hetal Roberts Type of Anesthesia: General/Supplemental Anesthesiologist: Moses Espinoza Special Medications: Ancef 2 g x 1 Specimen's removed: None Estimated Blood Loss (mL): < 10 cc Grafts/Implants Used: Ventrallight ST 11.4 cm diameter ref [id number] Lot [id number] Complications none
--- NOTE | 2023-01-07 12:32 | PCM.OPRPT ---
Report of Operation Date of Procedure: 01/07/23 Surgery/Procedure Performed:: laparoscopic and open umbilical hernia repair with mesh Surgeon: Kathy Malone risk assessor: Hetal Roberts Type of Anesthesia: General/Supplemental Anesthesiologist: Moses Espinoza Special Medications: Ancef 2 g x 1 Specimen's removed: None Estimated Blood Loss (mL): < 10 cc Description of Procedure: Patient was brought into the room placed supine on the operating table. Correct patient, procedure, site, positioning, special, was verified prior to procedure. General anesthesia was induced. The abdomen was prepped draped in usual sterile fashion. A curvilinear incision was made below the umbilicus with a 15 blade scalpel. This was deepened with electrocautery. A hemostat was used to go around the stalk of the umbilicus and Metzenbaum scissors was used to carefully divide the hernia sac from the skin of the umbilicus. The fascia around the hernia defect was cleared and the hernia defect measured 3 cm x 3 cm. Two 1 Prolene [id number] was used to close the defect, after Marc trocar was placed through the defect and abdomen insufflated with CO2 to a pressure of 12 to 15 mmHg. Patient tolerated insufflation well. Additional 5 mm trocars were placed in the left upper quadrant and left mid abdomen under direct visualization. Ventralight ST 11.4 cm diameter echo positioning system was chosen. This was placed into the abdomen through the Marc trocar. Abdominal insufflation pressures were reduced to 10 mmHg. Positioning system was insufflated and mesh was laying flat. The mesh was secured using a secure strap tacker and the echo system was removed completely through a 5 mm trocar site. Additional tacks were placed. Skin of the umbilicus was sutured with interrupted 3-0 Vicryl suture to the fascia. The umbilical incision was closed with 3-0 Vicryl subdermal interrupted sutures and the skin was closed with interrupted 4-0 Monocryl sutures. 5 mm trocar sites were also closed at the skin with 4-0 Monocryl. Steri-Strips and Tegaderm and OpSite were placed over the umbilical incision once sterile cotton balls were placed in the umbilicus. Patient was extubated. Patient tolerated procedure well and was taken to the postanesthesia care unit in stable condition. Grafts/Implants Used: Ventralight ST 11.4 cm diameter ref [id number] Lot [id number] Complications none
[2023-01-07] MEDS: Bupivacaine Mpf 0.5% 30 ML VIAL (12:35)
--- NOTE | 2023-01-07 12:37 | EX.PCM.DISCH ---
Discharge Instructions Diet Discharge Diet: Light diet - advance as tolerated Activity May shower in (days): 5 (Keep umbilical dressing clean dry and intact for 5 days. Okay to tape off with a Ziploc bag to shower. Or lower shower and upper sponge bath.) Lifting Restrictions: no lifting >20 lbs x 2 wks, no strenuous exercise for 4 wks Additional Activity Instructions:: - Dressing / Incision Call your doctor if your incision/area has: Continuous Slow Oozing, Sudden Increased Bleeding, Increased Pain/ Swelling, Increased Redness, Foul Smelling Discharge and Swelling at the incision site Call your doctor if you observe: Fever of 101 or Higher Remove Dressing in: 5 days (After 5 days okay to remove surgical dressing. Place cotton ball or rolled up gauze in bellybutton and retape daily for 2 more days.) Cleanse incision/area with: Do not get Incision Wet (for 5 days) Additional Dressing/Incision Instructions:: Steri-Strips will fall off in 7 to 10 days, if they do not fall off okay to remove after 10 days. Follow Up Care Please Follow Up With: Kathy Malone MD When: Call the office for a follow-up appointment 2 weeks; after 5 PM and on the weekends call [phone] with any concerns. Test Results: Test results from this visit will be discussed in further detail at your follow-up appointment, if applicable. Discharge Plan Admission Attending Provider: Kathy Malone Primary Care Provider: Tom Crocker Discharge Orders/Prescriptions Prescriptions: New hydrocodone-acetaminophen 5-325 mg tablet 1 - 2 tab PO Q6H PRN (Reason: pain) 3 Days Qty: 10 0RF Continued pramipexole 0.25 mg tablet 0.25 mg PO TID primidone 50 mg tablet 100 mg PO BID tizanidine 2 mg capsule 2 mg PO TID PRN (Reason: BACK/LEG PAIN) cholecalciferol (vitamin D3) 50 mcg (2,000 unit) capsule 50 mcg PO DAILY ascorbic acid (vitamin C) 500 mg capsule 500 mg PO TID magnesium 250 mg tablet 500 mg PO DAILY hydralazine 50 mg tablet 100 mg PO TID [id number] 50-200-200 mg tablet 1 tab PO TID Label Comments: TAKE 1 TABLET BY MOUTH THREE TIMES DAILY triamcinolone acetonide 0.5 % cream 1 applic topical PRN PRN (Reason: CELLULITIS) Rx Instructions: Apply twice a day to affected left leg area doxazosin 2 mg Tablet 1 mg PO QHS hydrochlorothiazide 12.5 mg Tablet 12.5 mg PO QODAY levocetirizine 5 mg Tablet 5 mg PO QPM carvedilol 25 mg tablet 25 mg PO BID Slow Fe 142 mg (45 mg iron) Tablet Extended Release 142 mg PO DAILY amlodipine 10 mg tablet 10 mg PO QHS Held aspirin [Adult Aspirin Regimen] 81 mg tablet,delayed release (DR/EC) 81 mg PO DAILY Hold Instructions: Resume on 01/09/23. Referrals / Follow Up: Tom Crocker DO [Primary Care Provider] - Disposition Disposition (needs filled in before D/C Order can be placed): Home, Self Care
== END 2023-01-07 15:38 | disposition home or self-care (01) ==
LOC: SDC 09:53 → AC 09:54
PROVIDERS: PCP Family Medicine; Referring Provider Surgery; Visit Provider Surgery
PROC: 0WQF4ZZ Repair Abdominal Wall, Percutaneous Endoscopic Approach (ICD-10-PCS; CPT 49593; principal; 2023-01-07 11:15)
DX: K43.2 Incisional hernia without obstruction or gangrene (principal); G20 Parkinson's disease; K42.9 Umbilical hernia without obstruction or gangrene; I25.10 Atherosclerotic heart disease of native coronary artery without angina pectoris; N18.9 Chronic kidney disease, unspecified; I12.9 Hypertensive chronic kidney disease with stage 1 through stage 4 chronic kidney disease, or unspecified chronic kidney disease; E78.5 Hyperlipidemia, unspecified; I35.0 Nonrheumatic aortic (valve) stenosis; E61.1 Iron deficiency; G25.81 Restless legs syndrome
CPT/HCPCS: 49593; 00752; J7120; J2405

== ENCOUNTER → 2023-03-09 | Outpatient (CLI) | payer MEDICARE, SELFPAY ==
[2023-03-09 15:35] LABS: Absolute Lymphocyte Count 0.89 X10^3/uL (0.83-4.51); Absolute Neutrophil Count 3.2 X10^3/uL (2.0-7.7); Basophil# 0.03 X10^3/uL; Basophil% 0.6 % (0-1); Eosinophil# 0.15 X10^3/uL; Eosinophils% 3.2 % (0-5); Hematocrit 29.7 % (40-54); Hemoglobin 9.7 g/dL (13.0-16.5); Lymphocyte # 0.89 X10^3/ul (0.83-4.51); Lymphocyte % 18.9 % (19-41); Mean Corp Hgb Conc 32.7 g/dL (32-36); Mean Corpuscular Hgb 30.3 pg (27.0-32.0); Mean Corpuscular Volume 92.8 fL (80-94); Mean Platelet Vol. 10.5 fl (6.2-12.0); Monocyte# 0.45 X10^3/uL; Monocyte% 9.5 % (0-10); NRBC Flagged by Analyzer 0 % (0-5); Neutrophil # 3.17 X10^3/uL (2.7-7.7); Neutrophil % 67.2 % (47-70); Platelet Count 172 K/mm3 (150-450); RBC Distribution Width SD 47.6 fl (35.1-43.9); White Blood Count 4.7 K/mm3 (4.4-11.0)
[2023-03-09 16:19] LABS: Ferritin 35 ng/mL (26-388); Iron 63 ug/dL (65-175); LDH 227 U/L (87-241); Magnesium 2.2 mg/dL (1.6-2.6)
== END | disposition home or self-care (01) ==
LOC: BFHLAB 13:53
PROVIDERS: PCP Family Medicine; Referring Provider Family Medicine; Visit Provider Family Medicine
DX: D64.9 Anemia, unspecified (principal)
CPT/HCPCS: 36415; 82728; 83540; 83615; 83735; 85025

== ENCOUNTER → 2023-06-26 | Outpatient (CLI) | payer MEDICARE, SELFPAY ==
--- NOTE | 2023-06-26 10:35 | RAD_ITS ---
STUDY: X-RAY CHEST REASON FOR EXAM: Male, 72 years old. DYSPNEA TECHNIQUE: PA and lateral views of the chest. COMPARISON: 03/26/2021 FINDINGS: The lungs are clear and expanded. There is no demonstrated pleural abnormality. Normal size heart. Normal mediastinum and tai. Normal visualized pulmonary arteries. Normal visualized aortic arch and descending thoracic aorta. There are diffuse degenerative changes of the visualized thoracic spine. Normal visualized ribs, clavicles, and shoulders. There is no demonstrated abnormality of the visualized soft tissue structures of the upper abdomen. RAD/Chest PA and Lateral IMPRESSION: No acute pulmonary process Electronically Signed: Niko Tellez MD at 14:38 EDT ,
== END | disposition home or self-care (01) ==
LOC: RAD 10:27
PROVIDERS: PCP Family Medicine; Referring Provider Internal Medicine Pulmonary Disease; Visit Provider Internal Medicine Pulmonary Disease
DX: R06.00 Dyspnea, unspecified (principal)
CPT/HCPCS: 71046

== ENCOUNTER → 2023-10-22 | Outpatient (CLI) | payer MEDICARE, SELFPAY ==
[2023-10-22 12:37] LABS: Absolute Lymphocyte Count 0.89 X10^3/uL (0.83-4.51); Absolute Neutrophil Count 4.1 X10^3/uL (2.0-7.7); Basophil# 0.04 X10^3/uL; Basophil% 0.7 % (0-1); Eosinophil# 0.14 X10^3/uL; Eosinophils% 2.4 % (0-5); Hematocrit 30.8 % (40-54); Hemoglobin 10.3 g/dL (13.0-16.5); Lymphocyte # 0.89 X10^3/ul (0.83-4.51); Lymphocyte % 15.3 % (19-41); Mean Corp Hgb Conc 33.4 g/dL (32-36); Mean Corpuscular Hgb 31.4 pg (27.0-32.0); Mean Corpuscular Volume 93.9 fL (80-94); Mean Platelet Vol. 11.1 fl (6.2-12.0); Monocyte# 0.63 X10^3/uL; Monocyte% 10.9 % (0-10); NRBC Flagged by Analyzer 0 % (0-5); Neutrophil # 4.06 X10^3/uL (2.7-7.7); Platelet Count 157 K/mm3 (150-450); RBC Distribution Width CV 13.9 % (11.6-14.6); Red Blood Count 3.28 M/mm3 (4.6-6.2); White Blood Count 5.8 K/mm3 (4.4-11.0)
[2023-10-22 13:07] LABS: Vitamin B12 997 pg/mL (211-911)
[2023-10-22 13:14] LABS: CPK Total, Creatine Kinase 101 U/L (39-308); Ferritin 111 ng/mL (26-388); Iron 39 ug/dL (65-175); LDH 245 U/L (87-241); Thyroid Stim Hormone (TSH) 1.95 uIU/mL (0.358-3.74)
[2023-10-22 13:15] LABS: Erythrocyte Sedimentation Rate 13 mm/hr (0-20)
[2023-10-23 13:08] LABS: ANTINUCLEAR ANTIBODIES DIRECT Negative (Negative)
[2023-10-30 17:07] LABS: Aldosterone, Serum < 1.0 ng/dL (0.0-30.0); Myoglobin, Serum 73 ng/mL (28-72)
== END | disposition home or self-care (01) ==
LOC: BFHLAB 08:53
PROVIDERS: PCP Family Medicine; Visit Provider Family Medicine
DX: D64.9 Anemia, unspecified (principal); E87.5 Hyperkalemia; R53.1 Weakness; R21 Rash and other nonspecific skin eruption; R53.83 Other fatigue
CPT/HCPCS: 36415; 82088; 82550; 82607; 82728; 83540; 83615; 83874; 84443; 85025; 85652; 86038; 86140; 86225; 86235

== ENCOUNTER → 2023-11-04 | Outpatient (CLI) | payer MEDICARE, SELFPAY ==
[2023-11-04 12:08] LABS: Absolute Lymphocyte Count 1.03 X10^3/uL (0.83-4.51); Absolute Neutrophil Count 3.9 X10^3/uL (2.0-7.7); Basophil# 0.05 X10^3/uL; Basophil% 0.9 % (0-1); Eosinophil# 0.15 X10^3/uL; Eosinophils% 2.7 % (0-5); Hemoglobin 10.6 g/dL (13.0-16.5); Lymphocyte # 1.03 X10^3/ul (0.83-4.51); Lymphocyte % 18.4 % (19-41); Mean Corp Hgb Conc 34.2 g/dL (32-36); Mean Corpuscular Volume 90.6 fL (80-94); Mean Platelet Vol. 10.5 fl (6.2-12.0); Monocyte# 0.45 X10^3/uL; NRBC Flagged by Analyzer 0 % (0-5); Neutrophil # 3.89 X10^3/uL (2.7-7.7); Neutrophil % 69.3 % (47-70); Platelet Count 174 K/mm3 (150-450); RBC Distribution Width CV 13.7 % (11.6-14.6); RBC Distribution Width SD 45.2 fl (35.1-43.9); Red Blood Count 3.42 M/mm3 (4.6-6.2); White Blood Count 5.6 K/mm3 (4.4-11.0)
[2023-11-04 12:18] LABS: Differential Indicated SCAN CRITERIA MET
[2023-11-05 12:09] LABS: Anti-Jo <0.2 AI (0.0-0.9); Anti-dsDNA Ab <1 IU/mL (0-9)
[2023-11-05 16:10] LABS: Aldolase 2.5 U/L (3.3-10.3)
[2023-11-06 08:53] LABS: Pathologist Review Reviewed
== END | disposition home or self-care (01) ==
PROVIDERS: PCP Family Medicine; Referring Provider Family Medicine; Visit Provider Family Medicine
DX: M60.9 Myositis, unspecified (principal); E27.40 Unspecified adrenocortical insufficiency; R53.1 Weakness; D64.9 Anemia, unspecified
CPT/HCPCS: 36415; 82085; 82533; 85025; 86225; 86235

== ENCOUNTER → 2024-03-21 | Outpatient (CLI) | payer MEDICARE, SELFPAY ==
[2024-03-21 12:08] LABS: Absolute Neutrophil Count 3.2 X10^3/uL (2.0-7.7); Basophil# 0.05 X10^3/uL; Eosinophils% 2.1 % (0-5); Hematocrit 30.2 % (40-54); Hemoglobin 10.2 g/dL (13.0-16.5); Lymphocyte % 18.8 % (19-41); Mean Corp Hgb Conc 33.8 g/dL (32-36); Mean Corpuscular Volume 91.8 fL (80-94); Mean Platelet Vol. 11.1 fl (6.2-12.0); Monocyte# 0.48 X10^3/uL; NRBC Flagged by Analyzer 0 % (0-5); Neutrophil # 3.22 X10^3/uL (2.7-7.7); Neutrophil % 67.5 % (47-70); Platelet Count 164 K/mm3 (150-450); RBC Distribution Width CV 13.5 % (11.6-14.6); RBC Distribution Width SD 45.3 fl (35.1-43.9); Red Blood Count 3.29 M/mm3 (4.6-6.2); White Blood Count 4.8 K/mm3 (4.4-11.0)
[2024-03-21 12:54] LABS: Anion Gap 7 (5-15); BUN 60 mg/dL (7-18); BUN/Creat Ratio 34.1 RATIO (10-20); Chloride 105 mmol/L (98-107); Creatinine, Serum 1.76 mg/dL (0.70-1.30); EST Glomerular Filtration Rate 41 mL/min (>60); Est Glom Filt Rate - Afr Amer 49 mL/min (>60); Glucose 98 mg/dL (74-106); Potassium 5.3 mmol/L (3.5-5.1); Sodium Level 138 mmol/L (136-145)
== END | disposition home or self-care (01) ==
LOC: LAB 11:13
PROVIDERS: PCP Family Medicine; Referring Provider Family Medicine; Visit Provider Family Medicine
DX: N18.31 Chronic kidney disease, stage 3a (principal); D64.9 Anemia, unspecified
CPT/HCPCS: 36415; 80048; 85025

== ENCOUNTER → 2024-04-12 | Outpatient (CLI) | payer MEDICARE, SELFPAY ==
[2024-04-12 11:35] LABS: Anion Gap 6 (5-15); BUN 45 mg/dL (7-18); BUN/Creat Ratio 29.8 RATIO (10-20); Chloride 105 mmol/L (98-107); Creatinine, Serum 1.51 mg/dL (0.70-1.30); EST Glomerular Filtration Rate 48 mL/min (>60); Est Glom Filt Rate - Afr Amer 59 mL/min (>60); Glucose 107 mg/dL (74-106); Phosphorus 4.4 mg/dL (2.5-4.9); Potassium 5.3 mmol/L (3.5-5.1); Sodium Level 138 mmol/L (136-145)
== END | disposition home or self-care (01) ==
LOC: LAB 09:36
PROVIDERS: PCP Family Medicine; Referring Provider Family Medicine; Visit Provider Family Medicine
DX: I12.9 Hypertensive chronic kidney disease with stage 1 through stage 4 chronic kidney disease, or unspecified chronic kidney disease (principal); N18.31 Chronic kidney disease, stage 3a
CPT/HCPCS: 36415; 80048; 84100

== ENCOUNTER → 2024-06-23 | Outpatient (CLI) | payer MEDICARE, SELFPAY ==
[2024-06-23 09:23] LABS: Absolute Neutrophil Count 3.3 X10^3/uL (2.0-7.7); Basophil# 0.03 X10^3/uL; Basophil% 0.6 % (0-1); Eosinophil# 0.12 X10^3/uL; Eosinophils% 2.6 % (0-5); Hematocrit 29.6 % (40-54); Hemoglobin 10.1 g/dL (13.0-16.5); Lymphocyte % 17.2 % (19-41); Mean Corp Hgb Conc 34.1 g/dL (32-36); Mean Corpuscular Hgb 31.1 pg (27.0-32.0); Mean Corpuscular Volume 91.1 fL (80-94); Mean Platelet Vol. 10.6 fl (6.2-12.0); Monocyte# 0.43 X10^3/uL; Monocyte% 9.2 % (0-10); NRBC Flagged by Analyzer 0 % (0-5); Neutrophil # 3.25 X10^3/uL (2.7-7.7); Neutrophil % 69.8 % (47-70); Platelet Count 140 K/mm3 (150-450); RBC Distribution Width CV 13.7 % (11.6-14.6); RBC Distribution Width SD 45.3 fl (35.1-43.9); Red Blood Count 3.25 M/mm3 (4.6-6.2); White Blood Count 4.7 K/mm3 (4.4-11.0)
--- OUTSIDE RECORDS SUMMARY | 2024-06-23 10:12 | XMS RPT_ITS | CCD ---
Author Organization [facility] Care Team Providers Care Patrol Inspector Name Role Phone Merly Seth RN Unavailable Unavailable FRNACESCO DO, DR RANDLE A Primary Care Physician Francescoshabana VERDE, Razia A Primary Care Provider RAZIA MAYA A Primary Care Unavailable MILENA HERMAN Attending Unavailable FRANCESCO, RAZIA A Primary Care Unavailable MILENA HERMAN Attending Unavailable MILENA HERMAN Referring Unavailable MILENA HERMAN Attending Unavailable FrancescoRazia donald A Primary Care Provider [phone] Francesco DO, Razia A Primary Care Provider FILOMENA VERDE, ADELINA Wilson Attending Unavaila ble FRANCESCO DO, DR RANDLE A Primary Care Unavailab le DEGENSERENA DO, ADELINA Wilson Attending Unavaila ble FRANCESCO DO, DR RANDLE A Primary Care Unavailab le DEGENSERENA DO, ADELINA Wislon Attending Unavaila ble FRANCESCO DO, DR RANDLE A Primary Care Unavailab le DEGENSERENA DO, ADELINA Wilson Attending Unavaila ble FRANCESCO DO, DR RANDLE A Primary Care Unavailab le 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, SHERICE Carmona Attending Unavaila ble FRANCESCO DO, DR RAZIA Villa Primary Care Unavailab le FRANCESCO DO, DR RAZIA Villa Attending Unavailab le FRANCESCO DO, DR RANDLE A Primary Care Unavailab le FILOMENA DO, ADELINA Wilson Attending Unavaila ble FRANCESCO DO, DR RANDLE A Primary Care Unavailab SIM Lua PA-C Attending Unavailab le FRANCESCO DO, DR RANDLE A Primary Care Unavailab le [employer]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, SHERICE Carmona Attending Unavaila ble FRANCESCO DO, DR RANDLE A Primary Care Unavailab VIOLETTE Rico MD Attending Unavailable FRANCESCO DO, DR RAZIA A Primary Care Unavailab le FRANCESCO DO, DR RAZIA Villa Primary Care Unavailab cresencio FONTAINE CR[employer] GR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, LEONARDO Villa Attending Unavaila ble FILOMENA DO, ADELINA Wilson Attending Unavaila ble FRANCESCO DO, DR RAZIA Villa Primary Care Unavailab cresencio BOSS MD, DODIE Consulting Unavailable HARI, RALPH Attending Unavailable FRANCESCO, RAZIA Primary Care Unavailable HARI, RALPH Attending Unavailable FRANCESCO, RAZIA Primary Care Unavailable HARI, RALPH Attending Unavailable FRANCESCO, RAZIA Primary Care Unavailable BAVADENIKE, RALPH Attending Unavailable FRANCESCO, RAZIA Primary Care Unavailable BAVADENIKE, RALPH Attending Unavailable FRANCESCO, RAZIA Primary Care Unavailable Francesco DO, Razia A Primary Care Provider SELF Referring Unavailable FRANCESCO, RAZIA A Primary Care Unavailable DAY ROD Attending Unavailable MILENA HERMAN Referring Unavailable FRANCESCO, RAZIA Villa Primary Care Unavailable FRANCESCO, RAZIA A Primary Care Unavailable MILTON BASILIO Attending Unavailable HERMAN, MILENA Attending Unavailable FRANCESCO, RAZIA A Primary Care Unavailable Allergies Allergy Classification Reported Allergen(s) Allergy Type Date of Onset Reaction(s) Facility (20 sources) clindamycin; Translations: [Clindamycin] drug allergy [address] [facility] [employer] Work Phone: (1 source) Sulfonamides (Antibiotic) drug allergy [address] [facility] [employer] Work Phone: (17 sources) Sulfonamides (Antibiotic); Translations: [sulfa drugs] Drug allergy [address] [facility] (3 sources) Sulfonamides (Antibiotic); Translations: [SULFA (SULFONAMIDE ANTIBIOTICS)] Propensity to adverse reactions to drug (disorder) 2 [facility] (8 sources) Allopurinol Drug Allergy 1 [facility] [employer] (8 sources) Propranolol Drug Allergy 2 [facility] [employer] (8 sources) Simvastatin Allergy to substance 1 [facility] [employer] Medications Current Medications Medication Drug Class(es) Dates Sig (Normalized) Sig (Original) amoxicillin 875 mg oral tablet (2 sources) Penicillin-class Antibacterial Start: 10-21-2023 End: 10-31-2023 take 1 tablet by mouth twice daily amoxicillin (AMOXIL) 875 mg tablet Indications: Acute otitis externa of both ears, unspecified type Take 1 tablet by mouth two times a day for 10 days. 20 tablet 0 10/21/2023 10/31/2023 Active Comment on above: Take 1 tablet by gabirel th two times a day for 10 days. ascorbic acid 1000 mg oral tablet (20 sources) Start: 04-27-2023 End: 04-26-2024 take 1 tablet by mouth at dinner Ascorbic Acid (vitamin C) 1000 MG tablet Take 1 tablet (1,000 mg) by mouth with evening meal. And a meal 90 tablet 3 04/27/2023 04/26/2024 Active Start: 04-22-2022 End: 01-19-2024 Ascorbic Acid (VITAMIN C PO) Take 500 mg by mouth. 0 04/22/2022 01/19/2024 Discontinued Start: 06-20-2015 take 2 tablets by mo ut once daily VITAMIN C 1000 MG TABS Two tablets by mouth daily ASCORBIC ACID [id number] Federico Chacko MD take 2 tablets by mo ut twice daily ascorbic acid, vitamin C, (VITAMIN C) 500 mg tablet Take 1,000 mg by mouth two times a day. Active take 3 tablets by mo ut once daily ascorbic acid, vitamin C, (VITAMIN C) 500 mg tablet Take 1,500 mg by mouth once daily. 0 Active Comment on above: Take 500 mg by mouth once daily. Take 1,500 mg by gabriel once daily. augmented betamethasone 0.5 mg/ml topical cream (8 sources) Corticosteroid Start: 10-30-19 22 betamethasone, augmented, (Diprolene AF) 0.05 % cream APPLY TO THE AREAS OF RASH ON THE LEGS DAILY NEEDED 0 10/29/2021 Active carbidopa 50 mg / levodopa 200 mg extended release oral tablet (20 sources) Aromatic Amino Acid Decarboxylation Inhibitor Start: 10-29-19 24 End: 04-18-20 24 take 1 tablet by mouth three times daily carbidopa-levodopa CR (Sinemet CR) 50-200 MG ER tablet Indications: Parkinson's disease with fluctuating manifestations, unspecified whether dyskinesia present (HCC) Take 1 tablet by mouth 3 times daily. Do not crush or chew. 270 tablet 3 01/19/2024 04/18/2024 Active Start: 07-28-2023 End: 07-27-2024 take 1 tablet by mouth three times daily carbidopa-levodopa (Sinemet) 25-100 MG tablet Take 1 tablet by mouth 3 times daily. 270 tablet 3 07/28/2023 01/19/2024 Discontinued (Reorder) Start: 04-27-2023 End: 01-18-2025 carbidopa-levodopa (Sinemet) 25-100 MG tablet Indications: Parkinson's disease with fluctuating manifestations, unspecified whether dyskinesia present (HCC) Take 1 tablet by mouth every 8 hours as needed (tremors). With the carb-levo CR 50/200 270 tablet 3 01/19/2024 01/18/2025 Active Start: 03-13-2023 End: 07-28-2023 take 1 tablet by mouth three times daily carbidopa-levodopa CR (Sinemet CR) 50-200 MG ER tablet Take 1 tablet by mouth 3 times daily. Do not crush or chew. 270 tablet 3 03/25/2023 07/28/2023 Discontinued (Side effects) Start: 06-23-2022 End: 04-27-2023 carbidopa-levodopa CR (Chanel et CR) 50-200 MG ER tablet 2 times daily. 0 06/23/2022 04/27/2023 Discontinued Start: 06-20-2015 take 1 tablet by gabriel th three times daily CARBIDOPA-LEVODOPA ER 50-200 MG CR-TABS One tablet by mouth three times daily CARBIDOPA-LEVODOPA [id number] Federico Chacko MD carvedilol 25 mg oral tablet (19 sources) alpha-Adrenergic Alton, beta-Adrenergic Alton Start: 09-25-2023 End: 06-20-2024 take 1 tablet by mouth twice daily at mealtime carvedilol (COREG) 25 mg tablet Take 1 tablet by mouth two times a day with meals. 180 tablet 1 06/20/2024 Active Start: 04-22-2022 End: 10-16-2022 carvedilol (Coreg) 25 MG tab let 25 mg in the morning and 25 mg in the evening. 0 07/09/2022 Active Comment on above: Take 1 tablet by gabriel th twice daily with meals. Take 25 mg by mouth twice daily with meals. Take 1 tablet by gabriel th two times a day with meals. cholecalciferol 0.05 mg oral capsule (8 sources) Vitamin D cholecalciferol (Vitamin D-3) 50 MCG (2000 UT) capsule Take by mouth. 0 Active cloNIDine hydrochloride 0.1 mg oral tablet (9 sources) Central alpha-2 Adrenergic Agonist take 1 tablet by mouth every twelve hours as needed cloNIDine HCl (CATAPRES) 0.1 mg tablet Take 0.1 mg by mouth two times a day as needed. Active End: 03-14-2024 cloNIDine TTS (CATAPRES-TTS) 0.1 mg/24 hr once daily as needed. 0 03/14/2024 Discontinued (Other) Comment on above: once daily as needed . ergocalciferol 0.05 mg oral tablet (8 sources) Provitamin D2 Compound ergocalci ferol, vitamin D2, 50 mcg (2,000 unit) tab Take 2,000 Units by mouth once daily. Active Comment on above: Take by mouth once d aily. 24 hr ferrous sulfate 142 mg extended release oral tablet (15 sources) Ferrous Sulfate (SLOW FE) 142 mg (45 mg iron) TbER once daily. Active Ferrous Sulfate (SLOW FE PO) Take by mouth. 0 Active Comment on above: once daily. hydrALAZINE hydrochloride 50 mg oral tablet (20 sources) Arteriolar Vasodilator Start: 02-03-2023 hydrALAZINE (Apresoline) 50 MG tablet Take by mouth. 0 02/03/2023 Active Start: 07-08-2022 take 1 tablet by gabriel th in the morning hydrALAZINE (Apresoline) 10 MG tablet Take 10 mg by mouth in the morning and 10 mg in the evening. 0 07/08/2022 Active End: 03-14-2024 take 1 tablet by mouth three times daily hydrALAZINE (APRESOLINE) 100 mg tablet Take 100 mg by mouth three times daily. 0 03/14/2024 Discontinued (Other) take 1 tablet by gabriel th three times daily hydrALAZINE (APRESOLINE) 25 mg tablet Take 25 mg by mouth three times daily. 0 Active Comment on above: Take 25 mg by mouth three times daily. Take 100 mg by mouth three times daily. hydroCHLOROthiazide 12.5 mg oral capsule (15 sources) Thiazide Diuretic Start: 023 take 1 tablet by mouth every other day hydroCHLOROthiazide (Microzide) 12.5 MG capsule Take 12.5 mg by mouth daily. Takes 1 tab every other day. 0 02/25/2023 Active take 1 capsule by mouth once judy ly hydroCHLOROthiazide 12.5 mg capsule Take 12.5 mg by mouth once daily. Active Comment on above: Take 12.5 mg by mout h once daily. hydrocortisone 10 mg/ml / neomycin 3.5 mg/ml / polymyxin b 08010 unt/ml otic suspension (1 source) Aminoglycoside Antibacterial, Polymyxin-class Antibacterial, Corticosteroid Start: 10-21-2023 End: 10-26-2023 [id number]-niu rocortisone (CORTISPORIN) 3.5-10,000-1 mg/mL-unit/mL-% otic suspension Indications: Acute otitis externa of both ears, unspecified type Use 4 Drops in both ears three times a day for 5 days. 3 mL 0 10/21/2023 10/26/2023 Active Comment on above: Use 4 Drops in both ears three times a day for 5 days. 24 hr isosorbide mononitrate 60 mg extended release oral tablet (2 sources) Nitrate Vasodilator Start: 04-22-2022 isosorbide mononitrate 60 mg oral tablet, extended release Dose : 60 mg = 1 tab(s), Oral, qAM, # 30 tab(s), 0 Refill(s) Start Date: 04/22/22 Status: Ordered End: 10-16-2022 take 1 tablet by mouth once daily, then take 1 tablet by mouth every twenty-four hours isosorbide mononitrate ER (IMDUR) 30 mg 24 hr tablet Take 30 mg by mouth once daily. 0 10/16/2022 Discontinued Comment on above: Take 30 mg by mouth once daily. magnesium gluconate 250 mg oral tablet (17 sources) Start: 04-22-2022 magnesium gluconate 250 MG tablet 250 mg. 0 04/22/2022 Active take 500 mg by mouth once daily MAGNESIUM GLUCONATE ORAL Take 500 mg by mouth once daily. Active Comment on above: Take 250 mg by mouth once daily. Take 500 mg by mouth once daily. magnesium oxide 400 mg oral tablet (7 sources) magnesium oxide (Mag-Ox) 400 MG tablet Take 250 mg by mouth daily. 0 Active pramipexole dihydrochloride 0.25 mg oral tablet (20 sources) Nonergot Dopamine Agonist Start: End: take 1 tablet by mouth once daily pramipexole (Mirapex) 0.25 MG tablet Indications: Parkinson's disease with fluctuating manifestations, unspecified whether dyskinesia present (HCC) , Parkinson disease (HCC) Take 1 tablet (0.25 mg) by mouth Nightly. 90 tablet 3 10/29/2023 01/27/2024 Active Start: 04-22-2022 End: 07-28-2023 take 1 tablet by mouth three times daily pramipexole (Mirapex) 0.25 MG tablet Indications: Parkinson disease Take 1 tablet (0.25 mg) by mouth 3 times daily. 270 tablet 2 10/27/2022 07/28/2023 Discontinued (Reorder) Start: 12-16-2016 take 0.25 mg by mout h every twenty-four hours PRAMIPEXOLE DIHYDROCHLORIDE 0.5 MG TABS 0.25mg daily PRAMIPEXOLE DIHYDROCHLORIDE [id number] Federico Chacko MD Start: 06-20-2015 End: 02-18-2016 take 1 tablet by mouth three times daily MIRAPEX 0.25 MG TABS One tablet by mouth three times daily PRAMIPEXOLE DIHYDROCHLORIDE [id number] Federico Chacko MD Comment on above: Take 0.25 mg by mout h three times daily. vitamin b12 1 mg oral tablet (15 sources) Vitamin B12 take 1 tablet by mouth once daily cyanocobalamin (VITAMIN B-12) 1,000 mcg tab Take 1,000 mcg by mouth once daily. Active Cyanocobalamin ( VITAMIN B 12 PO) Take by mouth. 0 Active Comment on above: Take 1,000 mcg by mo uth once daily. Vitamin C 500 mg oral tablet (1 source) Start: 04-22-2022 Vitamin C 500 mg oral tablet Dose : 500 mg = 1 tab(s), Oral, qDay, with clare hips, # 30 tab(s), 0 Refill(s) Start Date: 04/22/22 Status: Ordered Vitamin D2 50 mcg (2000 intl units) oral capsule (1 source) Start: 04-22-2022 Vitamin D2 50 mcg (2000 intl units) oral capsule Dose : 50 mcg = 1 cap(s), Oral, qDay, with food, # 60 cap(s), 0 Refill(s) Start Date: 04/22/22 Status: Ordered Completed/Discontinued Medications Medication Drug Class(es) Dates Sig (Normalized) Sig (Original) allopurinol 300 mg oral tablet (1 source) Xanthine Oxidase Inhibitor Start: 06-20-2015 take 1 tablet by mouth once daily ALLOPURINOL 300 MG TABS One tablet by mouth daily ALLOPURINOL [id number] Federico Chacko MD amLODIPine 10 mg oral tablet (20 sources) Dihydropyridine Calcium Channel Alton Start: 12-20-2020 End: 03-14-2024 take 1 tablet by mouth once daily amLODIPine (NORVASC) 10 mg tablet Take 1 tablet by mouth once daily. 90 tablet 3 10/16/2022 03/14/2024 Discontinued (Other) take 1 tablet by mouth once greer y amLODIPine (NORVASC) 5 mg tablet Take 5 mg by mouth once daily. Active Comment on above: Take 1 tablet by gabriel th once daily. Take 10 mg by mouth once daily. aspirin 81 mg delayed release oral tablet (16 sources) Nonsteroidal Anti-inflammatory Drug Start: 06-20-2015 End: 03-14-2024 aspirin 81 MG EC tablet Start: 06-20-2015 take 1 tablet by gabriel th once daily ASPIRIN 81 MG TABS One tablet by mouth daily ASPIRIN [id number] Federico Chacko MD Comment on above: Take 81 mg by mouth once daily. carbidopa 50 mg / entacapone 200 mg / levodopa 200 mg oral tablet (11 sources) Aromatic Amino Acid Decarboxylation Inhibitor, Gycwxdqp-N-Gfxvjikygkc ferase Inhibitor, Aromatic Amino Acid Start: 022 End: 023 take 50-200 tablets by mouth three times daily gwfgsjrqz-dpsyaegw-f ntacapone (Stalevo) 50-200-200 MG tablet Indications: Parkinson disease (HCC) Take 1 tablet by mouth 3 times daily. 270 tablet 2 10/27/2022 04/27/2023 Discontinued Comment on above: Take 1 tablet by gabriel th three times daily. furosemide 40 mg oral tablet (1 source) Loop Diuretic Start: 015 take 1 tablet by mouth once daily LASIX 40 MG TABS One tablet by mouth daily FUROSEMIDE [id number] Federico Chacko MD levocetirizine dihydrochloride 5 mg oral tablet (8 sources) Histamine-1 Receptor Antagonist Start: 023 End: 023 take 1 tablet by mouth once daily in the evening levocetirizine (Xyzal) 5 MG tablet Indications: Generalized pruritus Take 1 tablet (5 mg) by mouth every evening. 90 tablet 1 10/27/2022 03/13/2023 Discontinued Comment on above: Take 5 mg by mouth d aily at bedtime. losartan potassium 50 mg oral tablet (5 sources) Angiotensin 2 Receptor Altno Start: 022 End: 023 losartan (Cozaar) 50 MG tablet Take by mouth. 0 06/23/2022 03/13/2023 Discontinued Start: 06-18-2015 End: 06-20-2015 take 1 tablet by mouth once daily LOSARTAN POTASSIUM 100 MG TABS One tablet by mouth daily LOSARTAN POTASSIUM [id number] Federico Chacko MD Comment on above: Take 50 mg by mouth once daily. metaxalone 800 mg oral tablet (8 sources) Start: 2 End: 4 take 1 tablet by mouth every eight hours as needed for muscle spasms metaxalone (Skelaxin) 800 MG tablet TAKE 1 TABLET BY MOUTH EVERY 8 HOURS NEEDED (TIGHTNESS, SPASMS IN LEGS) 0 03/14/2022 01/19/2024 Discontinued patiromer 8400 mg powder for oral suspension (4 sources) Potassium Binder End: 4 Patiromer Sorbitex Calcium (Veltassa) 8.4 g pack Take by mouth. 0 01/19/2024 Discontinued primidone 50 mg oral tablet (20 sources) Anti-epileptic Agent Start: 3 End: 4 take 2 tablets by mouth once daily in the morning, then take 3 tablets by mouth once daily in the evening primidone (Mysoline) 50 MG tablet Indications: Essential tremor Take 2 tabs po QAM and 3 tabs po QPM 450 tablet 1 10/29/2023 01/19/2024 Discontinued (Reorder) Start: 10-27-2022 End: 07-28-2023 primidone (Mysoline) 50 MG t ablet Indications: Essential tremor TAKE 2 TABLETS TWICE A DAY 360 tablet 1 05/18/2023 07/28/2023 Discontinued (Reorder) Start: 04-22-2022 primidone 50 m g oral tablet Dose : 50 mg = 1 tab(s), Oral, BID, # 60 tab(s), 0 Refill(s) Start Date: 04/22/22 Status: Ordered Comment on above: Take 100 mg by mouth twice daily. propranolol hydrochloride 80 mg oral tablet (3 sources) beta-Adrenergic Alton Start: 06-18-2015 take 1 tablet by mouth twice daily PROPRANOLOL HCL 80 MG TABS One tablet by mouth twice daily for tremor PROPRANOLOL HCL [id number] Merly Seth RN Start: 06-18-2015 take 1 tablet by [facility] three times daily PROPRANOLOL HCL 80 MG TABS One tablet by mouth three times daily PROPRANOLOL HCL [id number] Federico Chacko MD Start: 06-18-2015 PROPRANOLOL HC L 80 MG TABS two tablets in the am and one in the evening PROPRANOLOL HCL [id number] Federico Chacko MD rosuvastatin calcium 20 mg oral tablet (1 source) HMG-CoA Reductase Inhibitor End: 10-16-2022 take 1 tablet by mouth once daily rosuvastatin (CRESTOR) 20 mg tablet Take 20 mg by mouth once daily. 0 10/16/2022 Discontinued Comment on above: Take 20 mg by mouth once daily. sodium zirconium cyclosilicate 5000 mg powder for oral suspension (8 sources) Start: 01-06-2023 End: 01-19-2024 Lokelma 5 g packet levothyroxine sodium 0.025 mg oral tablet (2 sources) l-Thyroxine Start: 06-20-2015 End: 12-16-2016 take 1 tablet by mouth once daily LEVOTHYROXINE SODIUM 25 MCG TABS One tablet by mouth daily LEVOTHYROXINE SODIUM [id number] Federico Chacko MD triamcinolone (2 sources) Corticosteroid Start: 12-27-2015 NASACORT AQ 55 MCG/ACT AERS One inhalation once daily TRIAMCINOLONE ACETONIDE(NASAL) Razia Maya DO Start: 12-27-2015 NASACORT AQ 55 MCG/ACT AERS Take as directed TRIAMCINOLONE ACETONIDE(NASAL) Federico Chacko MD Problems Active Problems Problem Classification Problem Date Documented Date Episodic/Chronic Acute and unspecified renal failure (1 source) Acute renal failure syndrome; Translations: [Acute kidney failure, unspecified] Episodic Cancer of testis (1 source) Malignant tumor of testis 04-09-2022 Chronic Chronic kidney disease (2 sources) Chronic kidney disease stage 3A ; Translations: [Stage 3a chronic kidney disease (HCC)] Chronic Chronic kidney disease (4 sources) Chronic kidney disease; Translations: [Stage 3a chronic kidney disease (HCC)] Onset: 12-11-2022 Conduction disorders (1 source) Atrioventricular block, first degree; Translations: [Atrioventricular block, first degree] Onset: 06-18-2015 06-18-2015 Chronic Congestive heart failure; nonhypertensive (15 sources) Chronic diastolic heart failure; Translations: [Chronic diastolic (congestive) heart failure] Onset: 10-16-2022 Chronic Disorders of lipid metabolism (2 sources) Hyperlipidemia; Translations: [Hyperlipidemia, unspecified] Onset: 06-12-2023 06-12-2023 Chronic Essential hypertension (10 sources) Hypertensive disorder; Translations: [Essential hypertension] Onset: 06-18-2015 06-18-2015 Chronic Gout and other crystal arthropathies (2 sources) Gout; Translations: [Gout, unspecified] Onset: 02-18-2016 02-18-2016 Chronic Heart valve disorders (14 sources) Mitral stenosis with insufficiency; Translations: [Nonrheumatic aortic (valve) stenosis] Onset: 06-18-2015 06-20-2015 Chronic Hypertension with complications and secondary hypertension (1 source) Hypertensive emergency; Translations: [Hypertensive emergency] Chronic Other and ill-defined heart disease (1 source) Cardiomegaly; Translations: [Cardiomegaly] Onset: 06-18-2015 06-18-2015 Chronic Other connective tissue disease (1 source) Muscle pain; Translations: [Myalgia, unspecified site] 10-29-2023 Episodic Other connective tissue disease (2 sources) Myalgia, unspecified site; Translations: [Myalgia, unspecified site] Onset: 10-29-2023 Episodic Other ear and sense organ disorders (1 source) Hearing loss 04-09-2022 Chronic Other ear and sense organ disorders (1 source) Acute otitis externa of bilateral ears; Translations: [Unspecified acute noninfective otitis externa, bilateral] 10-21-2023 Episodic Other hereditary and degenerative nervous system conditions (16 sources) Essential tremor; Translations: [Essential tremor] Onset: 02-18-2016 02-18-2016 Chronic Other hereditary and degenerative nervous system conditions (1 source) Essential tremor; Translations: [Essential tremor] Onset: 06-13-2022 Chronic Other nervous system disorders (1 source) H/O: WARPMAN disorder; Translations: [Personal history of other diseases of the nervous system and sense organs] Episodic Other nutritional; endocrine; and metabolic disorders (1 source) Obesity; Translations: [Obesity, unspecified] Chronic Parkinson's disease (19 sources) Parkinson's disease; Translations: [Parkinson's disease] Onset: 02-18-2016 02-18-2016 Chronic Parkinson`s disease (6 sources) Parkinson`s disease; Translations: [Parkinson's disease without dyskinesia, with fluctuations (HCC)] Onset: 06-13-2022 Peripheral and visceral atherosclerosis (2 sources) Peripheral vascular disease; Translations: [Peripheral vascular disease, unspecified] Chronic Residual codes; unclassified (1 source) Sleep apnea 04-09-2022 Chronic Residual codes; unclassified (2 sources) Obstructive sleep apnea (adult) (pediatric); Translations: [PATRICIO (obstructive sleep apnea)] Onset: 10-13-2022 Chronic Residual codes; unclassified (2 sources) Never smoked tobacco; Translations: [Other specified health status] Episodic Residual codes; unclassified (3 sources) Other specified health status; Translations: [Never smoked cigarettes] Onset: 12-11-2022 Episodic Residual codes; unclassified (1 source) Non-smoker; Translations: [Other specified health status] 06-12-2023 Episodic Thyroid disorders (1 source) Hypothyroidism; Translations: [Hypothyroidism, unspecified] Onset: 02-18-2016 02-18-2016 Chronic Unclassified (12 sources) Obstructive sleep apnea syndrome; Translations: [Obstructive sleep apnea (adult) (pediatric)] Onset: 02-18-2016 02-18-2016 Chronic Past or Other Problems Problem Classification Problem Date Documented Date Episodic/Chronic Fluid and electrolyte disorders (3 sources) Dehydration; Translations: [Dehydration] Onset: 04-30-2023 Episodic Other ear and sense organ disorders (1 source) Unspecified acute noninfective otitis externa, bilateral; Translations: [Acute otitis externa of both ears, unspecified type] Onset: 10-21-2023 Episodic Other screening for suspected conditions (not mental disorders or infectious disease) (10 sources) Ultrasonography of kidney abnormal; Translations: [Abnormal radiologic findings on diagnostic imaging of unspecified kidney] Onset: 05-26-2022 Episodic Residual codes; unclassified (13 sources) Past history of procedure; Translations: [Personal history of other medical treatment] Onset: 05-28-2022 Episodic Residual codes; unclassified (11 sources) History of cardiac catheterization; Translations: [Other specified postprocedural states] Onset: 01-21-2021 Episodic Residual codes; unclassified (3 sources) Personal history of other medical treatment; Translations: [History of echocardiogram] Onset: 10-13-2022 Episodic Residual codes; unclassified (1 source) Other specified postprocedural states; Translations: [History of cardiac cath] Onset: 10-16-2022 Episodic Spondylosis; intervertebral disc disorders; other back problems (8 sources) Lumbar radiculopathy; Translations: [Radiculopathy, lumbar region] Onset: 11-15-2020 06-13-2022 Episodic Unclassified (3 sources) Family history of ischemic heart disease and other diseases of the circulatory system; Translations: [Family history of sudden ] 06-20-2015 Episodic Results Test Name Value Interpretation Reference Range Facility [facility] 04-05-2024 [facility]YOVANANDDylan[facility] CAROLYN ABBOTT ([id number]) 1950 [facility] Date Time Provider Department 04/05/24 MILENA HERMAN During your visit today, we recorded the following information about you: Milena Herman APRN.CNP 04/05/2024 1:44 PM Signed Please call patient let him know that his echocardiogram from 04/01/2024 shows heart strength is good. There is moderate mitral valve regurgitation and stenosis. Moderate aortic stenosis. We will continue to monitor. This is a stable echocardiogram Thank you very much Jonas Gan MA 04/05/2024 1:59 PM Signed Left a voicemail for a return call back. Results ABS. Sherice Basilio 04/05/2024 2:14 PM Signed Patient returned the call and was given the message Please call patient let him know that his echocardiogram from 04/01/2024 shows heart strength is good. There is moderate mitral valve regurgitation and stenosis. Moderate aortic stenosis. We will continue to monitor. This is a stable echocardiogram Thank you very much Patient voiced understanding Allergies As of Date: 04/05/2024 Noted Allergy Reaction CLINDAMYCIN 08/12/2022 7 - Swelling SULFA (SULFONAMIDE ANTIBIOTICS) 08/12/2022 16 - Unknown Date Reviewed: 03/14/2024 Reviewed by: Jonas Gan MA - Fully Assessed Reason for Visit: Results [95] Cmt: Echocardiogram Prescriptions as of 04/05/2024 - amLODIPine (NORVASC) 5 mg tablet Take 5 mg by mouth once daily. - cloNIDine HCl (CATAPRES) 0.1 mg tablet Take 0.1 mg by mouth two times a day as needed. - hydrALAZINE (APRESOLINE) 50 mg tablet Take 50 mg by mouth two times a day. - carvedilol (COREG) 25 mg tablet Take 1 tablet by mouth two times a day with meals. - hydroCHLOROthiazide 12.5 mg capsule Take 12.5 mg by mouth once daily. - Ferrous Sulfate (SLOW FE) 142 mg (45 mg iron) TbER once daily. - levocetirizine 5 mg tablet Take 5 mg by mouth daily at bedtime. - cyanocobalamin (VITAMIN B-12) 1,000 mcg tab Take 1,000 mcg by mouth once daily. - primidone (MYSOLINE) 50 mg tablet Take 100 mg by mouth two times a day. 100mg AM and 150mg PM - cyvvtoanq-shymfzvi-qkw acapone (STALEVO 200) 50-200-200 mg per tablet Take 1 tablet by mouth three times daily. - MAGNESIUM GLUCONATE ORAL Take 500 mg by mouth once daily. - pramipexole (MIRAPEX) 0.25 mg tablet Take 0.25 mg by mouth three times daily. - ascorbic acid, vitamin C, (VITAMIN C) 500 mg tablet Take 1,000 mg by mouth two times a day. - ergocalciferol, vitamin D2, 50 mcg (2,000 unit) tab Take 2,000 Units by mouth once daily. Problem List As Of Date 04/05/2024 Noted Resolved History of echocardiogram [Z92.89] 05/28/2022 Aortic stenosis [I35.0] 2019 Abnormal renal ultrasound [R93.429] 05/26/2022 PATRICIO (obstructive sleep apnea) [G47.33] 10/13/2022 History of cardiac cath [Z98.890] 01/21/2021 Chronic diastolic HF (heart failure) ([facility]) [I50*10/16/2022 Encounter Status:Closed by MILENA HERMAN on 04/05/24 [facility] ECHOon 04-01-2024 Echocardiography Echocardiography Report: Transthoracic Echo [facility]gent [facility] Outpatient [facility] Date of service: 04/01/2024 2:44:04 PM Ordering physician: MILENA HERMAN Indication: Re-evaluation of known Heart Failure with a change in clinical status/exam with a clear precipitating change in diet or medication Technologist: Merly Romero [facility] Interpreting physician: Orlando Pugh MD PATIENT: Name: MR. CAROLYN ABBOTT : 1950 Age: 73 years Gender: M History of hypertension, dyslipidemia, chronic kidney disease, valvular heart disease and coronary artery disease. Previous cardiovascular interventions: Diagnostic cath Primary rhythm: sinus. Height: 172.72 cm BSA: 2.19 m Weight: 100.25 kg BMI: 33.6 kg/m Heart rate 68 bpm Blood pressure 122/80 mmHg Color Doppler was utilized to interrogate the cardiac valves assessed and spectral Doppler was utilized to determine the flow velocities and pressure gradients reported in this exam. MEASUREMENTS: Value Indexed Normal Max aortic dimension 3.8 cm Ao < 3.8 Left atrial volume 83 ml (biplane A-L) 38 ml/m Naz <= 34 LV ID (diastole) 4.9 cm (2D) 2.23 cm/m LV ID (systole) 2.9 cm (2D) 1.32 cm/m IVS, leaflet tips 0.9 cm (2D) Posterior wall thickness 1.3 cm (2D) Left ventricular mass 200 g (2D) 91 g/m LV stroke volume 85 ml (2D 4-ch.) LVOT stroke volume 110 ml 52 ml/m LV end diastolic volume 117 ml (2D 4-ch.) 53.3 ml/m 34<=EDVi<75 LV end systolic volume 32 ml (2D 4-ch.) 14.7 ml/m Ejection Fraction 72 % (2D 4-ch.) EF > 52 FINDINGS: LEFT VENTRICLE The left ventricle is normal in size. Left ventricular systolic function is hyperdynamic. Left ventricular diastolic function was not evaluated due to mitral stenosis. Mitral annular lateral E/e': 12.6. Mitral annular septal E/e': 17.7. Wall Motion: All scored segments are normal. RIGHT VENTRICLE The right ventricle is normal in size. Right ventricular systolic function is normal. Tricuspid annular displacement is 3.0 cm. Estimated right ventricular systolic pressure is 36 mmHg consistent with mild pulmonary hypertension. Estimated right atrial pressure is 3 mmHg based on IVC assessment. LEFT ATRIUM The left atrial cavity is normal in size. RIGHT ATRIUM The right atrial cavity is normal in size. Inferior Vena Cava: The inferior vena cava appears normal measuring 1.2 cm. The vessel decreases greater than 50 percent with inspiration. MITRAL VALVE There is mild mitral stenosis. There is moderate (2+) mitral valve regurgitation. There is moderate thickening extending globally. There is mild calcification extending globally. The peak mitral valve gradient is 17 mmHg. The mean mitral valve gradient is 7 mmHg. The pressure half time is 113 msec. The peak mitral E/A ratio is 0.60. The average mitral E/e' ratio is 15.2. The mitral flow deceleration time is 391 msec. MVA ~ 2.1 cm2 TRICUSPID VALVE The tricuspid valve leaflets are structurally normal. There is no tricuspid stenosis. There is mild (1+) tricuspid valve regurgitation. There is no thickening. AORTIC VALVE There is moderate aortic valve stenosis. There is no aortic valve regurgitation. Tricuspid aortic valve. There is moderate thickening extending globally. There is moderate calcification extending globally. The peak gradient is 52 mmHg (peak velocity = 362.0 cm/s). The mean gradient is 27 mmHg. The LVOT mean velocity is 75.3 cm/s. The LVOT diameter is 2.2 cm. The aortic VTI is 88.8 cm. The mean velocity in the aortic valve is 241.0 cm/s. The dimensionless valve index is 0.33. AV area is 1.24 cm (0.57 cm /m ) by continuity, VTI. The LVOT stroke volume index is 52 ml/m . PULMONIC VALVE The pulmonic valve cusps are structurally normal. There is no pulmonic stenosis. There is no pulmonic valve regurgitation. There is no thickening. The peak gradient is 2 mmHg. AORTA The visualized aorta is borderline dilated. Measurements - Sinus: 3.3 cm. Sinotubular junction 3.1 cm. Mid ascending aorta 3.8 cm. PULMONARY ARTERIES The pulmonary arteries are normal. PERICARDIUM The pericardium is normal. CONCLUSIONS: - Exam indication: Re-evaluation of known Heart Failure with a change in clinical status/exam with a clear precipitating change in diet or medication - The left ventricle is normal in size. Left ventricular systolic function is hyperdynamic. EF = 72 5% (2D 4-ch.) - The right ventricle is normal in size. Right ventricular systolic function is normal. - The visualized aorta is borderline dilated with a maximal dimension of 3.8 cm. - There is moderate (2+) mitral valve regurgitation. Mild to moderate mirtail stenosis, MVA 2.1 cm2. - PAP 40 mmHg. - Tricuspid aortic valve. There is moderate aortic valve stenosis. AV area is 1.24 cm (0.57 cm /m ) by continuity, VTI. The peak gradient is 52 mmHg, the mean gradient is 27 mmHg and the dimensio (more content not included)... [facility] Sol 03-31-2024 MARIE Telephone (ARNIE) SCARCAROLYN Kristine ([id number]) [address] [facility] Date Time Provider Department 03/31/24 MILENA HERMAN During your visit today, we recorded the following information about you: mIelda Morse 03/31/2024 9:46 AM Signed LM for patient w/ date, time, AND location of appt. Allergies As of Date: 03/31/2024 Noted Allergy Reaction CLINDAMYCIN 08/12/2022 7 - Swelling SULFA (SULFONAMIDE ANTIBIOTICS) 08/12/2022 16 - Unknown Date Reviewed: 03/14/2024 Reviewed by: Jonas Gan MA - Fully Assessed Reason for Visit: Appointment [186] Cmt: Reminder Prescriptions as of 03/31/2024 - amLODIPine (NORVASC) 5 mg tablet Take 5 mg by mouth once daily. - cloNIDine HCl (CATAPRES) 0.1 mg tablet Take 0.1 mg by mouth two times a day as needed. - hydrALAZINE (APRESOLINE) 50 mg tablet Take 50 mg by mouth two times a day. - carvedilol (COREG) 25 mg tablet Take 1 tablet by mouth two times a day with meals. - hydroCHLOROthiazide 12.5 mg capsule Take 12.5 mg by mouth once daily. - Ferrous Sulfate (SLOW FE) 142 mg (45 mg iron) TbER once daily. - levocetirizine 5 mg tablet Take 5 mg by mouth daily at bedtime. - cyanocobalamin (VITAMIN B-12) 1,000 mcg tab Take 1,000 mcg by mouth once daily. - primidone (MYSOLINE) 50 mg tablet Take 100 mg by mouth two times a day. 100mg AM and 150mg PM - mksvprojr-mbodkifs-dit acapone (STALEVO 200) 50-200-200 mg per tablet Take 1 tablet by mouth three times daily. - MAGNESIUM GLUCONATE ORAL Take 500 mg by mouth once daily. - pramipexole (MIRAPEX) 0.25 mg tablet Take 0.25 mg by mouth three times daily. - ascorbic acid, vitamin C, (VITAMIN C) 500 mg tablet Take 1,000 mg by mouth two times a day. - ergocalciferol, vitamin D2, 50 mcg (2,000 unit) tab Take 2,000 Units by mouth once daily. Problem List As Of Date 03/31/2024 Noted Resolved History of echocardiogram [Z92.89] 05/28/2022 Aortic stenosis [I35.0] 2019 Abnormal renal ultrasound [R93.429] 05/26/2022 PATRICIO (obstructive sleep apnea) [G47.33] 10/13/2022 History of cardiac cath [Z98.890] 01/21/2021 Chronic diastolic HF (heart failure) ([facility]) [I50*10/16/2022 Encounter Status:Closed by IMELDA MORSE on 03/31/24 [facility] CNOVon 03-14-2024 CNOV Office Visit (JUNI ) SCARCARLCAROLYN Kristine ([id number]) [address] [facility] Date Time Provider Department 03/14/24 9:20 AM MILENA HERMAN During your visit today, we recorded the following information about you: Pulse Blood pressure Weight Height 59/minute 122/80 100.5 kg 1.74 m Milena Herman APRN.CNP 03/14/2024 10:21 PM Signed [facility] Department of Cardiology Referring Provider: No ref. provider found Date: March 14, 2024 Chief Complaint: Diastolic heart failure Subjective: Carolyn Abbott is a 73 year old male who presents as an established patient for diastolic heart failure assessment and management. Patient does state he has had some shortness of breath. He feels the shortness of breath is just ongoing. He has noticed some fatigue. Patient denies any headaches, dizziness, syncope or near syncopal episodes. Patient has had no chest pain, palpitations, PND, or orthopnea. ALLERGIES Allergen Reactions Clindamycin Swelling Sulfa (Sulfonamide * Unknown PAST MEDICAL HISTORY: PAST MEDICAL HISTORY Diagnosis Date Abnormal renal ultrasound 05/26/2022 No evidence of hemodynamically significant arterial stenosis, involving the right renal artery. Consistent with less than 60% stenosis. No evidence of hemodynamically significant arterial stenosis, involving the left renal artery. Consistent with less than 60% stenosis. Aortic stenosis 2018 Bilateral leg pain foward emg results to neuro when received; etiology unclear, but reassuring that activity actually improved the issue; possible differentials include funcitonal magnesium deficiency from his chronic use of diuretic therapy, soreness from uncontrolled leg movements that night, less likely radiculopathy/spinal stenosis- not unknown medication side effect and no med change. 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 History of echocardiogram 05/28/2022 EF 55%. Mild concentric left ventricular hypertrophy. Stage 1 diastolic dysfunction. No regional wall motion abnormalities noted. History of echocardiogram 11/26/2020 EF 65%. Normal LV size. Left ventricular systolic function is normal. Mild-moderate mitral annular calcification. Mild-moderate eccentric mitral valve insufficiency. Mild focal aortic valve calcification. Mild aortic stenosis. History of echocardiogram 01/27/2020 EF 60%. Normal LV size. Left ventricular systolic function is normal. Moderate focal aortic valve calcification. Stage 1 diastolic dysfunction. Pulmonary artery systolic pressure is 20 mmHg. History of echocardiogram 12/24/2015 EF 55%. Normal LV size. Mild concentric left ventricular hypertrophy. Left ventricular systolic function is normal. Transmitral and pulmonary venous doppler flow suggestive of impaired relaxation of left ventricle. Mild (1+) tricuspid valve insufficiency. History of echocardiogram 01/18/2018 EF 55%. Mild eccentric mitral valve insufficiency. Mild focal aortic valve calcification. Stage 1 diastolic dysfunction. Mild aortic stenosis. History of prostate cancer 1980 Diagnosed in mid 1980s, with some adenopathy in the abdomen History of stress test 01/16/2021 EF 71% Evidence of probable inferior myocardial ischemia. Hypogonadism in male IFG (impaired fasting glucose) Joint pain Lumbar spinal stenosis Multiple acquired skin tags PATRICIO (obstructive sleep apnea) Parkinson's disease (HCC) 2017 Polycystic kidney disease Polyneuropathy lower extremities, very mild, NCS 08/2021 Respiratory symptoms Valvular heart disease 2017 Vitamin D deficiency Vitreous degeneration PAST SURGICAL HISTORY Procedure Laterality Date REPAIR EPIGASTRIC HERNIA,REDUC 12/2022 ULTRASOUND GUIDANCE FOR VENOUS ABLATION FAMILY HISTORY Problem Relation Age of Onset Diabetes Mother Hypertension Mother Diabetes Father Hypertension Father Heart Attack Father Heart disease Father Diabetes Sister Hypertension Sister Cancer Brother Heart disease Brother Hypertension Brother No Known Problems Paternal Grandfather SOCIAL HISTORY: Tobacco Use: Never Alcohol Use: Not Currently Drug Use: Never Employer And Job Title: None on file Years Of Education Completed: Not specified Marital Status: MEDICATIONS: Current Outpatient Medications Medication Sig amLODIPine (NORVASC) 5 mg tablet Take 5 mg by mouth once daily. cloNIDine HCl (CATAPRES) 0.1 mg tablet Take 0.1 mg by mouth two times a day as needed. hydrALAZINE (APRESOLINE) 50 mg tablet Take 50 mg by (more content not included)... [facility] ECG COMPLETEon 03-14-2024 ECG COMPLETE Ventricular Rate : 5 9 BPM Atrial Rate : 59 BPM P-R Interval : 238 ms QRS Duration : 78 ms Q-T Interval : 438 ms QTC Calculation(Bazett) : 433 ms Calculated P [place] : 9 degrees Calculated R [place] : 47 degrees Calculated T [place] : -7 degrees Sinus bradycardia with 1st degree AV block Confirmed by MILTON BASILIO DO ([id number]) on 03/19/2024 7:39:41 PM NAME : GILCARL RICOALD PID : [id number] : 1950 Gender : Male Race : ORD : [id number] Procedure Date : Mar 14 2024 09:31:08 Edit Date : Mar 19 2024 19:39:42 Diagnosis: Sinus bradycardia with 1st degree AV block Confirmed by MILTON BASILIO DO ([id number]) on 03/19/2024 7:39:41 PM Test Reason : HCS Location : 2 : [place] Overread By : MILTON BASILIO DO Edited By : MILTON BASILIO DO Referred By : , Acquired by : , [facility] Office Visiton 01-19-2024 Follow-up visit [id number] Carolyn Abbott 1950 M Date Provider Department Center 01/19/2024 [id number] None Family History Family Status - Relation Status Age at Father Notes: heart problems Mother Notes: heart problem Level of Service:91936 [facility] OFFICE/OUTPATIENT ESTABLISHED MOD MDM 30 MIN Reason for Visit and Comments: Follow-up [437844] Parkinson's Disease [385] Normal [facility] Progress Noteon 01-19-2024 Progress Note [facility] [address] [facility] [address] Dept: [phone] Dept Loc: [phone] Visit type: Established Patient Reason for Visit: Follow-up and Parkinson's Disease Assessment and Plan 1. Parkinson's disease with fluctuating manifestations, unspecified whether dyskinesia present (HCC) - carbidopa-levodopa (Sinemet) 25-100 MG tablet; Take 1 tablet by mouth every 8 hours as needed (tremors). With the carb-levo CR 50/200, Starting Thu01/19/2024, Until Thu01/18/2025 at 2359, Normal - carbidopa-levodopa CR (Sinemet CR) 50-200 MG ER tablet; Take 1 tablet by mouth 3 times daily. Do not crush or chew., Starting Thu01/19/2024, Until Thu04/18/2024, Normal 2. Essential tremor - primidone (Mysoline) 50 MG tablet; Take 2 tabs po QAM and 3 tabs po QPM, Normal Subjective HPI: He reports that he is taking the carb-levo 50/200 with out side effects. In fact he has added a 25/100 immed release in the AM to get better control of the tremors. He reports that this helps. He denies falls. He denies trouble swallowing. REVIEW OF SYSTEMS: Review of Systems Constitutional: Positive for fatigue. Negative for appetite change, chills, diaphoresis, fever and unexpected weight change. HENT: Negative for dental problem and mouth sores. Eyes: Negative for discharge and itching. Respiratory: Negative for chest tightness and shortness of breath. Cardiovascular: Negative for chest pain, palpitations and leg swelling. Gastrointestinal: Negative for abdominal pain, nausea, rectal pain and vomiting. Endocrine: Negative for polydipsia, polyphagia and polyuria. Genitourinary: Negative for decreased urine volume, flank pain and genital sores. Musculoskeletal: Positive for back pain. Negative for arthralgias and neck pain. Skin: Negative for color change. Allergic/Immunologic: Negative for food allergies and immunocompromised state. Neurological: Positive for dizziness, tremors and weakness. Negative for syncope, light-headedness and headaches. Hematological: Negative for adenopathy. Does not bruise/bleed easily. Psychiatric/Behavioral : Negative for agitation, behavioral problems, confusion, decreased concentration, sleep disturbance and suicidal ideas. Allergies Allergen Reactions Allopurinol Other reaction(s): Possible cause of rash on legs: went away after stopping Clindamycin Propranolol Leg edema Simvastatin Other reaction(s): myalgia Sulfa Antibiotics Current Outpatient Medications: amLODIPine (Norvasc) 5 MG tablet, Take by mouth daily., Disp: , Rfl: betamethasone, augmented, (Diprolene AF) 0.05 % cream, APPLY TO THE AREAS OF RASH ON THE LEGS DAILY NEEDED, Disp: , Rfl: carvedilol (Coreg) 25 MG tablet, 25 mg in the morning and 25 mg in the evening., Disp: , Rfl: cholecalciferol (Vitamin D-3) 50 MCG (2000 UT) capsule, Take by mouth., Disp: , Rfl: Cyanocobalamin (VITAMIN B 12 PO), Take by mouth., Disp: , Rfl: Ferrous Sulfate (SLOW FE PO), Take by mouth., Disp: , Rfl: hydrALAZINE (Apresoline) 50 MG tablet, Take 50 mg by mouth in the morning and 50 mg in the evening., Disp: , Rfl: hydroCHLOROthiazide (Microzide) 12.5 MG capsule, Take 12.5 mg by mouth daily. Takes 1 tab every other day., Disp: , Rfl: magnesium gluconate 250 MG tablet, 250 mg., Disp: , Rfl: magnesium oxide (Mag-Ox) 400 MG tablet, Take 250 mg by mouth daily., Disp: , Rfl: pramipexole (Mirapex) 0.25 MG tablet, Take 1 tablet (0.25 mg) by mouth Nightly., Disp: 90 tablet, Rfl: 3 Ascorbic Acid (vitamin C) 1000 MG tablet, Take 1 tablet (1,000 mg) by mouth with evening meal. And a meal, Disp: 90 tablet, Rfl: 3 carbidopa-levodopa (Sinemet) 25-100 MG tablet, Take 1 tablet by mouth every 8 hours as needed (tremors). With the carb-levo CR 50/200, Disp: 270 tablet, Rfl: 3 carbidopa-levodopa CR (Sinemet CR) 50-200 MG ER tablet, Take 1 tablet by mouth 3 times daily. Do not crush or chew., Disp: 270 tablet, Rfl: 3 hydrALAZINE (Apresoline) 10 MG tablet, Take 10 mg by mouth in the morning and 10 mg in the evening., Disp: , Rfl: hydrALAZINE (Apresoline) 50 MG tablet, Take by mouth., Disp: , Rfl: primidone (Mysoline) 50 MG tablet, Take 2 tabs po QAM and 3 tabs po QPM, Disp: 450 tablet, Rfl: 3 Past Medical History: Diagnosis Date Back pain Cancer (CMS/HCC) (HCC) HL (hearing loss) Hypertension Lumbar stenosis Parkinson's disease (HCC) Sleep apnea Testicular cancer (HCC) Testicular carcinoma, right (HCC) Tremor Social History Tobacco Use Smoking status: Never Smokeless tobacco: Never Substance Use Topics Alcohol use: Never Past Surgical History: Procedure Laterality Date HERNIA REPAIR 01/07/2023 OTHER SURGICAL HISTORY back injections TONSILLECTOMY (HISTORICAL) TUMOR REMOVAL VASCULAR SURGERY No family history on file. Objective Vitals: BP (!) 159/83 (BP Location: Right arm, Pa (more content not included)... Normal [facility] .Auto Diffon 12-22-2023 Basophil, Absolute 0.1 10 3/mcL Normal 0.0-0.3 [facility] ([place]) Comment on above: Performed By: #### M ORPH, GFR, CBC, ANEU, RFP, ADIFF #### [address] [address] Basophils/100 WBC (Bld) 1.2 % Normal 0.0-2.5 [facility] ([place]) Comment on above: Performed By: #### M ORPH, GFR, CBC, ANEU, RFP, ADIFF #### [address] [address] Eosinophil, Absolute 0.2 10 3/mcL Normal 0.0-0.7 [facility] ([place]) Comment on above: Performed By: #### M ORPH, GFR, CBC, ANEU, RFP, ADIFF #### [address] [address] Eosinophils/100 WBC (Bld) 2.6 % Normal 0.0-6.0 [facility] ([place]) Comment on above: Performed By: #### M ORPH, GFR, CBC, ANEU, RFP, ADIFF #### [address] [address] Lymphocyte, Absolute 1.4 10 3/mcL Normal 0.9-4.3 [facility] ([place]) Comment on above: Performed By: #### M ORPH, GFR, CBC, ANEU, RFP, ADIFF #### [address] [address] Lymphocytes/100 WBC (Bld) 24.3 % Normal 20.0-40.0 [facility] ([place]) Comment on above: Performed By: #### M ORPH, GFR, CBC, ANEU, RFP, ADIFF #### [address] [address] Monocyte, Absolute 0.5 10 3/mcL Normal 0.1-1.4 [facility] ([place]) Comment on above: Performed By: #### M ORPH, GFR, CBC, ANEU, RFP, ADIFF #### [address] [address] Monocytes/100 WBC (Bld) 8.5 % Normal 2.0-13.0 [facility] ([place]) Comment on above: Performed By: #### M ORPH, GFR, CBC, ANEU, RFP, ADIFF #### [address] [address] Neutrophils/100 WBC (Bld) 63.4 % Normal 50.0-75.0 [facility] ([place]) Comment on above: Performed By: #### M ORPH, GFR, CBC, ANEU, RFP, ADIFF #### [address] [address] .GFRon 12-22-2023 GFR 57 ml/min/1.73sqm Normal [facility] ([place]) Comment on above: Result Comment: GFR Population mean for , Non- Americans Ages 20-29 = 116 mL/min/1.73 sq.m. Ages 30-39 = 107 mL/min/1.73 sq.m. Ages 40-49 = 99 mL/min/1.73 sq.m. Ages 50-59 = 93 mL/min/1.73 sq.m. Ages 60-69 = 85 mL/min/1.73 sq.m. Ages 70+ = 75 mL/min/1.73 sq.m. Chronic Kidney Disease: Less than 60 mL/min/1.73 square meters End Stage Renal Disease: Less than 15 mL/min/1.73 square meters Performed By: #### M ORPH, GFR, CBC, ANEU, RFP, ADIFF #### [address] [address] GFR Non- 47 ml/min/1.73sqm Normal [facility] ([place]) Comment on above: Result Comment: GFR Population mean for , Non- Americans Ages 20-29 = 116 mL/min/1.73 sq.m. Ages 30-39 = 107 mL/min/1.73 sq.m. Ages 40-49 = 99 mL/min/1.73 sq.m. Ages 50-59 = 93 mL/min/1.73 sq.m. Ages 60-69 = 85 mL/min/1.73 sq.m. Ages 70+ = 75 mL/min/1.73 sq.m. Chronic Kidney Disease: Less than 60 mL/min/1.73 square meters End Stage Renal Disease: Less than 15 mL/min/1.73 square meters Performed By: #### M ORPH, GFR, CBC, ANEU, RFP, ADIFF #### [address] [address] .Morphon 12-22-2023 Platelet Estimate Normal Normal [facility] ([place]) Comment on above: Performed By: #### M ORPH, GFR, CBC, ANEU, RFP, ADIFF #### [address] [address] RBC morphology finding Nom (Bld) See Below Normal [facility] ([place]) Comment on above: Result Comment: RBC Morphology appears Normal Performed By: #### M ORPH, GFR, CBC, ANEU, RFP, ADIFF #### [address] [address] .NEUABSon 12-22-2023 Neutrophil, Absolute 3.8 10 3/mcL Normal 2.3-8.1 [facility] ([place]) Comment on above: Performed By: #### M ORPH, GFR, CBC, ANEU, RFP, ADIFF #### [place] [id number] CBCon 12-22-2023 Erythrocyte distribution width (RBC) [Ratio] 14.4 % Normal 11.5-15.5 [facility] ([place]) Comment on above: Performed By: #### M ORPH, GFR, CBC, ANEU, RFP, ADIFF #### [place] [address] Hematocrit (Bld) [Volume fraction] 31.2 % Low 40.0-52.0 [facility] ([place]) Comment on above: Performed By: #### M ORPH, GFR, CBC, ANEU, RFP, ADIFF #### [place] [address] Hgb 11.1 G/dL Low 13.0-17.5 [facility] ([place]) Comment on above: Performed By: #### M ORPH, GFR, CBC, ANEU, RFP, ADIFF #### [place] [address] MCH (RBC) [Entitic mass] 32.4 pg Normal 27.0-33.0 [facility] ([place]) Comment on above: Performed By: #### M ORPH, GFR, CBC, ANEU, RFP, ADIFF #### [place] [address] MCHC 35.5 G/dL Normal 32.0-36.0 [facility] ([place]) Comment on above: Performed By: #### M ORPH, GFR, CBC, ANEU, RFP, ADIFF #### [place] [address] MCV (RBC) [Entitic vol] 91.2 fL Normal 81.0-100.0 [facility] ([place]) Comment on above: Performed By: #### M ORPH, GFR, CBC, ANEU, RFP, ADIFF #### [address] [address] Platelet 178 10 3/mcL Normal 150-450 [facility] ([place]) Comment on above: Performed By: #### M ORPH, GFR, CBC, ANEU, RFP, ADIFF #### [place] [address] Platelet mean volume (Bld) [Entitic vol] 9.3 fL Normal 6.4-10.5 [facility] ([place]) Comment on above: Performed By: #### M ORPH, GFR, CBC, ANEU, RFP, ADIFF #### [place] [id number] RBC 3.42 10 6/mcL Low 4.50-6.00 [facility] ([place]) Comment on above: Performed By: #### M ORPH, GFR, CBC, ANEU, RFP, ADIFF #### [place] [id number] WBC 5.9 10 3/mcL Normal 4.5-10.8 [facility] ([place]) Comment on above: Performed By: #### M ORPH, GFR, CBC, ANEU, RFP, ADIFF #### [place] [id number] RFPon 12-22-2023 Albumin Level 3.9 G/dL Normal 3.2-4.8 [facility] ([place]) Comment on above: Performed By: #### M ORPH, GFR, CBC, ANEU, RFP, ADIFF #### [place] [address] BUN/Creatinine Ratio 34.2 ratio High 10.0-22.0 [facility] ([place]) Comment on above: Performed By: #### M ORPH, GFR, CBC, ANEU, RFP, ADIFF #### [address] [address] Calcium [Mass/Vol] 9.3 mg/dL Normal 8.7-10.4 [facility] ([place]) Comment on above: Performed By: #### M ORPH, GFR, CBC, ANEU, RFP, ADIFF #### [address] [address] Chloride [Moles/Vol] 108 mmol/L Normal 98-110 [facility] ([place]) Comment on above: Performed By: #### M ORPH, GFR, CBC, ANEU, RFP, ADIFF #### [address] [address] CO2 [Moles/Vol] 25 mmol/L Normal 22-32 [facility] ([place]) Comment on above: Performed By: #### M ORPH, GFR, CBC, ANEU, RFP, ADIFF #### [address] [address] Creatinine [Mass/Vol] 1.46 mg/dL High 0.60-1.40 [facility] ([place]) Comment on above: Performed By: #### M ORPH, GFR, CBC, ANEU, RFP, ADIFF #### [address] [address] Electrolyte Balance 4.0 mEq/L Normal 4.0-15.0 [facility] ([place]) Comment on above: Performed By: #### M ORPH, GFR, CBC, ANEU, RFP, ADIFF #### [address] [address] Glucose [Mass/Vol] 91 mg/dL Normal 82-115 [facility] ([place]) Comment on above: Performed By: #### M ORPH, GFR, CBC, ANEU, RFP, ADIFF #### [address] [address] Phosphate [Mass/Vol] 5.0 mg/dL Normal 2.4-5.1 [facility] ([place]) Comment on above: Result Comment: No te - New Reference Range in effect 20 Performed By: #### M ORPH, GFR, CBC, ANEU, RFP, ADIFF #### [address] [address] Potassium [Moles/Vol] 4.8 mmol/L Normal 3.5-5.0 [facility] ([place]) Comment on above: Performed By: #### M ORPH, GFR, CBC, ANEU, RFP, ADIFF #### [address] [address] Sodium [Moles/Vol] 137 mmol/L Normal 136-145 [facility] ([place]) Comment on above: Performed By: #### M ORPH, GFR, CBC, ANEU, RFP, ADIFF #### [place] [address] Urea nitrogen [Mass/Vol] 50.0 mg/dL High 8.0-22.0 [facility] ([place]) Comment on above: Performed By: #### M ORPH, GFR, CBC, ANEU, RFP, ADIFF #### [place] [address] RPCURon 12-22-2023 U Creatinine 61.4 mg/dL Normal [facility] ([place]) Comment on above: Performed By: #### M ORPH, GFR, CBC, ANEU, RFP, ADIFF #### [place] [id number] U Protein 90.6 mg/dL Normal [facility] ([place]) Comment on above: Performed By: #### M ORPH, GFR, CBC, ANEU, RFP, ADIFF #### [place] [address] U Ratio Prot/Creat 1.5 ratio Normal [facility] ([place]) Comment on above: Result Comment: resu lt calculated by rule GL_UR_PROT_[id number]_OLD (U Protein/U Creatinine) Performed By: #### M ORPH, GFR, CBC, ANEU, RFP, ADIFF #### [place] [id number] UAon 12-19-2023 Color (U) Yellow Normal [facility] ([place]) Comment on above: Performed By: #### M ORPH, GFR, CBC, ANEU, RFP, ADIFF #### [place] [id number] Glucose (U) [Mass/Vol] Negative Normal Negative [facility] ([place]) Comment on above: Performed By: #### M ORPH, GFR, CBC, ANEU, RFP, ADIFF #### [place] [id number] Ketones Ql (U) Negative Normal Neg-Trace [facility] ([place]) Comment on above: Performed By: #### M ORPH, GFR, CBC, ANEU, RFP, ADIFF #### [address] [address] UA Appear Clear Normal [facility] ([place]) Comment on above: Performed By: #### M ORPH, GFR, CBC, ANEU, RFP, ADIFF #### [address] [address] UA Blood Negative Normal Neg-Trace [facility] ([place]) Comment on above: Performed By: #### M ORPH, GFR, CBC, ANEU, RFP, ADIFF #### [address] [address] UA Leuk Est Negative Normal Negative [facility] ([place]) Comment on above: Performed By: #### M ORPH, GFR, CBC, ANEU, RFP, ADIFF #### [address] [address] UA Nitrite Negative Normal Negative [facility] ([place]) Comment on above: Performed By: #### M ORPH, GFR, CBC, ANEU, RFP, ADIFF #### [address] [address] UA pH 6.0 Normal 5.0 - 8.0 [facility] ([place]) Comment on above: Performed By: #### M ORPH, GFR, CBC, ANEU, RFP, ADIFF #### [address] [address] UA Protein 100 mg/dL Abnormal Negative [facility] ([place]) Comment on above: Performed By: #### M ORPH, GFR, CBC, ANEU, RFP, ADIFF #### [address] [address] UA Spec Grav 1.020 Normal [facility] ([place]) Comment on above: Performed By: #### M ORPH, GFR, CBC, ANEU, RFP, ADIFF #### [address] [address] UA Specimen Type Not Given Normal [facility] ([place]) Comment on above: Performed By: #### M ORPH, GFR, CBC, ANEU, RFP, ADIFF #### [place] [address] UA Urobilinogen 0.2 E.U./dL Normal [facility] ([place]) Comment on above: Performed By: #### M ORPH, GFR, CBC, ANEU, RFP, ADIFF #### [place] [address] Urobilinogen (U) [Mass/Vol] Negative Normal Neg-Trace [facility] ([place]) Comment on above: Performed By: #### M ORPH, GFR, CBC, ANEU, RFP, ADIFF #### [place] [address] UAMICon 12-19-2023 UA Bacteria Trace Abnormal Negative [facility] ([place]) Comment on above: Performed By: #### M ORPH, GFR, CBC, ANEU, RFP, ADIFF #### [place] [address] UA Hyal Cast 0-2 Abnormal [facility] ([place]) Comment on above: Performed By: #### M ORPH, GFR, CBC, ANEU, RFP, ADIFF #### [place] [address] UA Mucous Trace Normal [facility] ([place]) Comment on above: Performed By: #### M ORPH, GFR, CBC, ANEU, RFP, ADIFF #### [place] [address] UA RBC 0-2 Normal 0-2 [facility] ([place]) Comment on above: Performed By: #### M ORPH, GFR, CBC, ANEU, RFP, ADIFF #### [place] [address] UA Squam Epithelial 0-2 Normal 0-20 [facility] ([place]) Comment on above: Performed By: #### M ORPH, GFR, CBC, ANEU, RFP, ADIFF #### [place] [address] UA WBC 0-2 Normal 0-5 [facility] ([place]) Comment on above: Performed By: #### M ORPH, GFR, CBC, ANEU, RFP, ADIFF #### [address] [address] .GFRon 11-27-2023 GFR >60 Normal [facility] ([place]) Comment on above: Result Comment: GFR Population mean for , Non- Americans Ages 20-29 = 116 mL/min/1.73 sq.m. Ages 30-39 = 107 mL/min/1.73 sq.m. Ages 40-49 = 99 mL/min/1.73 sq.m. Ages 50-59 = 93 mL/min/1.73 sq.m. Ages 60-69 = 85 mL/min/1.73 sq.m. Ages 70+ = 75 mL/min/1.73 sq.m. Chronic Kidney Disease: Less than 60 mL/min/1.73 square meters End Stage Renal Disease: Less than 15 mL/min/1.73 square meters Performed By: #### M ORPH, GFR, CBC, ANEU, RFP, ADIFF #### [address] [address] GFR Non- 56 ml/min/1.73sqm Normal [facility] ([place]) Comment on above: Result Comment: GFR Population mean for , Non- Americans Ages 20-29 = 116 mL/min/1.73 sq.m. Ages 30-39 = 107 mL/min/1.73 sq.m. Ages 40-49 = 99 mL/min/1.73 sq.m. Ages 50-59 = 93 mL/min/1.73 sq.m. Ages 60-69 = 85 mL/min/1.73 sq.m. Ages 70+ = 75 mL/min/1.73 sq.m. Chronic Kidney Disease: Less than 60 mL/min/1.73 square meters End Stage Renal Disease: Less than 15 mL/min/1.73 square meters Performed By: #### M ORPH, GFR, CBC, ANEU, RFP, ADIFF #### [address] [address] BMPon 11-27-2023 BUN/Creatinine Ratio 33.3 ratio High 10.0-22.0 [facility] ([place]) Comment on above: Performed By: #### M ORPH, GFR, CBC, ANEU, RFP, ADIFF #### [address] [address] Calcium [Mass/Vol] 9.1 mg/dL Normal 8.7-10.4 [facility] ([place]) Comment on above: Performed By: #### M ORPH, GFR, CBC, ANEU, RFP, ADIFF #### [address] [address] Chloride [Moles/Vol] 111 mmol/L High 98-110 [facility] ([place]) Comment on above: Performed By: #### M ORPH, GFR, CBC, ANEU, RFP, ADIFF #### [address] [address] CO2 [Moles/Vol] 24 mmol/L Normal 22-32 [facility] ([place]) Comment on above: Performed By: #### M ORPH, GFR, CBC, ANEU, RFP, ADIFF #### [address] [address] Creatinine [Mass/Vol] 1.26 mg/dL Normal 0.60-1.40 [facility] ([place]) Comment on above: Performed By: #### M ORPH, GFR, CBC, ANEU, RFP, ADIFF #### [address] [address] Electrolyte Balance 6.0 mEq/L Normal 4.0-15.0 [facility] ([place]) Comment on above: Performed By: #### M ORPH, GFR, CBC, ANEU, RFP, ADIFF #### [address] [address] Glucose [Mass/Vol] 108 mg/dL Normal 82-115 [facility] ([place]) Comment on above: Performed By: #### M ORPH, GFR, CBC, ANEU, RFP, ADIFF #### [address] [address] Potassium [Moles/Vol] 5.1 mmol/L High 3.5-5.0 [facility] ([place]) Comment on above: Performed By: #### M ORPH, GFR, CBC, ANEU, RFP, ADIFF #### [facility] [address] [place] [address] Sodium [Moles/Vol] 141 mmol/L Normal 136-145 [facility] ([place]) Comment on above: Performed By: #### M ORPH, GFR, CBC, ANEU, RFP, ADIFF #### [facility] [address] [place] [address] Urea nitrogen [Mass/Vol] 42.0 mg/dL High 8.0-22.0 [facility] ([place]) Comment on above: Performed By: #### M ORPH, GFR, CBC, ANEU, RFP, ADIFF #### [facility] [address] [place] [address] Office Visiton 10-29-2023 Follow-up visit [id number] ScarCarolyn L 1950 M Date Provider Department Center 10/29/[address] [facility] None Family History Family Status - Relation Status Age at Father Notes: heart problems Mother Notes: heart problem Level of Service:67906 [facility] OFFICE/OUTPATIENT ESTABLISHED MOD MDM 30 MIN Reason for Visit and Comments: Follow-up [553880] Parkinson's Disease [385] Normal [facility] Progress Noteon 10-29-2023 Progress Note [facility] [address] [facility] [address] Dept: [phone] Dept Loc: [phone] Visit type: Established Patient Reason for Visit: Follow-up and Parkinson's Disease Assessment and Plan 1. Parkinson's disease with fluctuating manifestations, unspecified whether dyskinesia present 2. Essential tremor 3. Myalgia Subjective HPI: He reports that he is not noticing any improvement in the tremor since decreasing the carb-levo. He is not having any improvement in walking either. He reports that he is having periods of weakness. He has pain in his arms and legs that he reports is muscle pain. He reports that he is having pain in the posterior muscles of both legs. He reports sometimes has lower back pain but that is very infrequent. He reports that he is on a potassium binding medication because his potassium levels are running high. Also has myalgia in the left biceps. REVIEW OF SYSTEMS: Review of Systems Constitutional: Positive for fatigue. Negative for appetite change, chills, diaphoresis, fever and unexpected weight change. HENT: Negative for dental problem and mouth sores. Eyes: Negative for discharge and itching. Respiratory: Negative for chest tightness and shortness of breath. Cardiovascular: Negative for chest pain, palpitations and leg swelling. Gastrointestinal: Negative for abdominal pain, nausea, rectal pain and vomiting. Endocrine: Negative for polydipsia, polyphagia and polyuria. Genitourinary: Negative for decreased urine volume, flank pain and genital sores. Musculoskeletal: Positive for back pain. Negative for arthralgias and neck pain. Skin: Negative for color change. Allergic/Immunologic: Negative for food allergies and immunocompromised state. Neurological: Positive for dizziness, tremors and weakness. Negative for syncope, light-headedness and headaches. Hematological: Negative for adenopathy. Does not bruise/bleed easily. Psychiatric/Behavioral : Negative for agitation, behavioral problems, confusion, decreased concentration, sleep disturbance and suicidal ideas. Allergies Allergen Reactions Allopurinol Other reaction(s): Possible cause of rash on legs: went away after stopping Clindamycin Propranolol Leg edema Simvastatin Other reaction(s): myalgia Sulfa Antibiotics Current Outpatient Medications: amLODIPine (Norvasc) 10 MG tablet, , Disp: , Rfl: Ascorbic Acid (VITAMIN C PO), Take 500 mg by mouth., Disp: , Rfl: Ascorbic Acid (vitamin C) 1000 MG tablet, Take 1 tablet (1,000 mg) by mouth with evening meal. And a meal, Disp: 90 tablet, Rfl: 3 carbidopa-levodopa (Sinemet) 25-100 MG tablet, Take 1 tablet by mouth 3 times daily., Disp: 270 tablet, Rfl: 3 carvedilol (Coreg) 25 MG tablet, 25 mg in the morning and 25 mg in the evening., Disp: , Rfl: cholecalciferol (Vitamin D-3) 50 MCG (1999) capsule, Take by mouth., Disp: , Rfl: Cyanocobalamin (VITAMIN B 12 PO), Take by mouth., Disp: , Rfl: Ferrous Sulfate (SLOW FE PO), Take by mouth., Disp: , Rfl: hydrALAZINE (Apresoline) 50 MG tablet, Take by mouth., Disp: , Rfl: hydroCHLOROthiazide (Microzide) 12.5 MG capsule, Take 12.5 mg by mouth daily. Takes 1 tab every other day., Disp: , Rfl: magnesium gluconate 250 MG tablet, 250 mg., Disp: , Rfl: pramipexole (Mirapex) 0.25 MG tablet, Take 1 tablet (0.25 mg) by mouth Nightly., Disp: 90 tablet, Rfl: 3 primidone (Mysoline) 50 MG tablet, Take 2 tabs po QAM and 3 tabs po QPM, Disp: 450 tablet, Rfl: 1 aspirin 81 MG EC tablet, , Disp: , Rfl: betamethasone, augmented, (Diprolene AF) 0.05 % cream, APPLY TO THE AREAS OF RASH ON THE LEGS DAILY NEEDED, Disp: , Rfl: hydrALAZINE (Apresoline) 10 MG tablet, Take 10 mg by mouth in the morning and 10 mg in the evening., Disp: , Rfl: Lokelma 5 g packet, , Disp: , Rfl: magnesium oxide (Mag-Ox) 400 MG tablet, Take 250 mg by mouth daily., Disp: , Rfl: metaxalone (Skelaxin) 800 MG tablet, TAKE 1 TABLET BY MOUTH EVERY 8 HOURS NEEDED (TIGHTNESS, SPASMS IN LEGS), Disp: , Rfl: Patiromer Sorbitex Calcium (Veltassa) 8.4 g pack, Take by mouth., Disp: , Rfl: pramipexole (Mirapex) 0.25 MG tablet, Take 1 tablet (0.25 mg) by mouth in the morning and 1 tablet (0.25 mg) at noon and 1 tablet (0.25 mg) before bedtime., Disp: 270 tablet, Rfl: 1 Past Medical History: Diagnosis Date Back pain Cancer (CMS/HCC) (HCC) HL (hearing loss) Hypertension Lumbar stenosis Parkinson's disease Sleep apnea Testicular cancer (HCC) Testicular carcinoma, right (HCC) Tremor Social History Tobacco Use Smoking status: Never Smokeless tobacco: Never Substance Use Topics Alcohol use: Never Past Surgical History: Procedure Laterality Date HERNIA REPAIR 01/07/2023 OTHER SURGICAL HISTORY back injections TONSILLECTOMY (HISTORICAL) TUMOR REMOVAL VASCULAR SURGERY No family history on file. (more content not included)... Normal [facility] CNPNon 10-28-2023 CNPN Telephone (CAUNDO) CAROLYN ABBOTT ([id number]) [address] [facility] Date Time Provider Department 10/28/23 MILTON BASILIO During your visit today, we recorded the following information about you: Jonas Gan MA 10/28/2023 2:26 PM Signed Please advise. Patient's called in stating the patient was at [facility] in [place] with left arm pain and his BP was extremely high. The patient's is wondering if he should come in and see you because of him having this left arm pain and this was the 2nd incident that this happened. Milton Basilio DO 10/30/2023 8:45 AM Signed Cath in 2020 with trace cad The risk of mi is very low EKG is May was normal Can come in today for EKG since very low risk Allergies As of Date: 10/28/2023 Noted Allergy Reaction CLINDAMYCIN 08/12/2022 7 - Swelling SULFA (SULFONAMIDE ANTIBIOTICS) 08/12/2022 16 - Unknown Date Reviewed: 10/21/2023 Reviewed by: Day Rod DO - Fully Assessed Reason for Visit: Patient Question [7037] Prescriptions as of 10/30/2023 - amoxicillin (AMOXIL) 875 mg tablet Take 1 tablet by mouth two times a day for 10 days. - carvedilol (COREG) 25 mg tablet Take 1 tablet by mouth two times a day with meals. - hydroCHLOROthiazide 12.5 mg capsule Take 12.5 mg by mouth once daily. - Ferrous Sulfate (SLOW FE) 142 mg (45 mg iron) TbER once daily. - levocetirizine 5 mg tablet Take 5 mg by mouth daily at bedtime. - cyanocobalamin (VITAMIN B-12) 1,000 mcg tab Take 1,000 mcg by mouth once daily. - amLODIPine (NORVASC) 10 mg tablet Take 1 tablet by mouth once daily. - primidone (MYSOLINE) 50 mg tablet Take 100 mg by mouth twice daily. - aspirin, enteric coated (ASPIRIN, ENTERIC COATED) 81 mg EC tablet Take 81 mg by mouth once daily. - pamxsuqce-ghubtwxg-quk acapone (STALEVO 200) 50-200-200 mg per tablet Take 1 tablet by mouth three times daily. - cloNIDine TTS (CATAPRES-TTS) 0.1 mg/24 hr once daily as needed. - hydrALAZINE (APRESOLINE) 100 mg tablet Take 100 mg by mouth three times daily. - MAGNESIUM GLUCONATE ORAL Take 500 mg by mouth once daily. - pramipexole (MIRAPEX) 0.25 mg tablet Take 0.25 mg by mouth three times daily. - ascorbic acid, vitamin C, (VITAMIN C) 500 mg tablet Take 1,500 mg by mouth once daily. - ergocalciferol, vitamin D2, 50 mcg (2,000 unit) tab Take by mouth once daily. Problem List As Of Date 10/28/2023 Noted Resolved History of echocardiogram [Z92.89] 05/28/2022 Aortic stenosis [I35.0] 2019 Abnormal renal ultrasound [R93.429] 05/26/2022 PATRICIO (obstructive sleep apnea) [G47.33] 10/13/2022 History of cardiac cath [Z98.890] 01/21/2021 Chronic diastolic HF (heart failure) (HCC) [I50*10/16/2022 Encounter Status:Closed by MILTON BASILIO on 10/30/23 [facility] .Auto Diffon 10-27-2023 Basophil, Absolute 0.1 10 3/mcL Normal 0.0-0.3 [facility] ([place]) Comment on above: Performed By: #### M ORPH, GFR, CBC, ANEU, RFP, ADIFF #### [address] [address] Basophils/100 WBC (Bld) 1.3 % Normal 0.0-2.5 [facility] ([place]) Comment on above: Performed By: #### M ORPH, GFR, CBC, ANEU, RFP, ADIFF #### [address] [address] Eosinophil, Absolute 0.2 10 3/mcL Normal 0.0-0.7 [facility] ([place]) Comment on above: Performed By: #### M ORPH, GFR, CBC, ANEU, RFP, ADIFF #### [address] [address] Eosinophils/100 WBC (Bld) 3.3 % Normal 0.0-6.0 [facility] ([place]) Comment on above: Performed By: #### M ORPH, GFR, CBC, ANEU, RFP, ADIFF #### [address] [address] Lymphocyte, Absolute 1.0 10 3/mcL Normal 0.9-4.3 [facility] ([place]) Comment on above: Performed By: #### M ORPH, GFR, CBC, ANEU, RFP, ADIFF #### [address] [address] Lymphocytes/100 WBC (Bld) 21.0 % Normal 20.0-40.0 [facility] ([place]) Comment on above: Performed By: #### M ORPH, GFR, CBC, ANEU, RFP, ADIFF #### [address] [address] Monocyte, Absolute 0.4 10 3/mcL Normal 0.1-1.4 [facility] ([place] Comment on above: Performed By: #### M ORPH, GFR, CBC, ANEU, RFP, ADIFF #### [address] [address] Monocytes/100 WBC (Bld) 8.0 % Normal 2.0-13.0 [facility] ([place]) Comment on above: Performed By: #### M ORPH, GFR, CBC, ANEU, RFP, ADIFF #### [address] [address] Neutrophils/100 WBC (Bld) 66.4 % Normal 50.0-75.0 [facility] ([place]) Comment on above: Performed By: #### M ORPH, GFR, CBC, ANEU, RFP, ADIFF #### [address] [address] .GFRon 10-27-2023 GFR 49 ml/min/1.73sqm Normal [facility] ([place]) Comment on above: Result Comment: GFR Population mean for , Non- Americans Ages 20-29 = 116 mL/min/1.73 sq.m. Ages 30-39 = 107 mL/min/1.73 sq.m. Ages 40-49 = 99 mL/min/1.73 sq.m. Ages 50-59 = 93 mL/min/1.73 sq.m. Ages 60-69 = 85 mL/min/1.73 sq.m. Ages 70+ = 75 mL/min/1.73 sq.m. Chronic Kidney Disease: Less than 60 mL/min/1.73 square meters End Stage Renal Disease: Less than 15 mL/min/1.73 square meters Performed By: #### M ORPH, GFR, CBC, ANEU, RFP, ADIFF #### [place] [address] GFR Non- 40 ml/min/1.73sqm Normal [facility] ([place]) Comment on above: Result Comment: GFR Population mean for , Non- Americans Ages 20-29 = 116 mL/min/1.73 sq.m. Ages 30-39 = 107 mL/min/1.73 sq.m. Ages 40-49 = 99 mL/min/1.73 sq.m. Ages 50-59 = 93 mL/min/1.73 sq.m. Ages 60-69 = 85 mL/min/1.73 sq.m. Ages 70+ = 75 mL/min/1.73 sq.m. Chronic Kidney Disease: Less than 60 mL/min/1.73 square meters End Stage Renal Disease: Less than 15 mL/min/1.73 square meters Performed By: #### M ORPH, GFR, CBC, ANEU, RFP, ADIFF #### [address] [address] .MDWon 10-27-2023 Monocyte Distribution Width 17.64 Normal 0.00-20.00 [facility] ([place]) Comment on above: Result Comment: For ED adult patients suspected of sepsis, MDW<=20.0 does not rule out sepsis or risk of sepsis Performed By: #### M ORPH, GFR, CBC, ANEU, RFP, ADIFF #### [address] [address] .NEUABSon 10-27-2023 Neutrophil, Absolute 3.0 10 3/mcL Normal 2.3-8.1 [facility] ([place]) Comment on above: Performed By: #### M ORPH, GFR, CBC, ANEU, RFP, ADIFF #### [address] [address] BMPon 10-27-2023 BUN/Creatinine Ratio 28 ratio High 7-27 [facility] ([place]) Comment on above: Performed By: #### M ORPH, GFR, CBC, ANEU, RFP, ADIFF #### [place] [address] Calcium [Mass/Vol] 8.9 mg/dL Normal 8.4-10.2 [facility] ([place]) Comment on above: Performed By: #### M ORPH, GFR, CBC, ANEU, RFP, ADIFF #### [place] [address] Chloride [Moles/Vol] 101 mmol/L Normal 98-107 [facility] ([place]) Comment on above: Performed By: #### M ORPH, GFR, CBC, ANEU, RFP, ADIFF #### [place] [address] CO2 [Moles/Vol] 28 mmol/L Normal 23-31 [facility] ([place]) Comment on above: Performed By: #### M ORPH, GFR, CBC, ANEU, RFP, ADIFF #### [place] [address] Creatinine [Mass/Vol] 1.69 mg/dL High 0.70-1.30 [facility] ([place]) Comment on above: Performed By: #### M ORPH, GFR, CBC, ANEU, RFP, ADIFF #### [place] [address] Electrolyte Balance 8.0 mEq/L Normal 4.0-15.0 [facility] ([place] Comment on above: Performed By: #### M ORPH, GFR, CBC, ANEU, RFP, ADIFF #### [address] [address] Glucose [Mass/Vol] 103 mg/dL Normal 83-110 [facility] ([place]) Comment on above: Performed By: #### M ORPH, GFR, CBC, ANEU, RFP, ADIFF #### [address] [address] Potassium [Moles/Vol] 4.4 mmol/L Normal 3.5-5.1 [facility] ([place] Comment on above: Performed By: #### M ORPH, GFR, CBC, ANEU, RFP, ADIFF #### [address] [address] Sodium [Moles/Vol] 137 mmol/L Normal 136-145 [facility] ([place] Comment on above: Performed By: #### M ORPH, GFR, CBC, ANEU, RFP, ADIFF #### [address] [address] Urea nitrogen [Mass/Vol] 47 mg/dL High 7-18 [facility] ([place]) Comment on above: Performed By: #### M ORPH, GFR, CBC, ANEU, RFP, ADIFF #### [address] [address] CBCon 10-27-2023 Erythrocyte distribution width (RBC) [Ratio] 14.1 % Normal 11.5-15.5 [facility] ([place]) Comment on above: Performed By: #### T LUIS MYERS, DUDLEY, ANEU, ADIFF, CBC, GFR #### [facility] [place] [address] [place], [place] [address] Hematocrit (Bld) [Volume fraction] 30.2 % Low 40.0-52.0 [facility] ([place]) Comment on above: Performed By: #### T LUIS MYERS, DUDLEY, ANEU, ADIFF, CBC, GFR #### Aminata Bradford [address] [place], [place] [address] Hgb 10.7 G/dL Low 13.0-17.5 [facility] ([place]) Comment on above: Performed By: #### T LUIS MYERS, DUDLEY, ANEU, ADIFF, CBC, GFR #### Aminata Bradford [address] [place], [place] [address] MCH (RBC) [Entitic mass] 31.5 pg Normal 27.0-33.0 [facility] ([place]) Comment on above: Performed By: #### T LUIS MYERS, DUDLEY, ANEU, ADIFF, CBC, GFR #### Aminata Bradford [address] [place], [place] [address] MCHC 35.3 G/dL Normal 32.0-36.0 [facility] ([place]) Comment on above: Performed By: #### T LUIS MYERS, DUDLEY, ANEU, ADIFF, CBC, GFR #### Aminata Bradford [address] [place], [place] [address] MCV (RBC) [Entitic vol] 89.3 fL Normal 81.0-100.0 [facility] ([place] Comment on above: Performed By: #### T LUIS MYERS, DUDLEY, ANEU, ADIFF, CBC, GFR #### Aminata Bradford [address] [place], [place] [address] Platelet 177 10 3/mcL Normal 150-450 [facility] ([place]) Comment on above: Performed By: #### T LUIS MYERS, DUDLEY, ANEU, ADIFF, CBC, GFR #### Aminata Bradford [address] [place], [place] [address] Platelet mean volume (Bld) [Entitic vol] 7.8 fL Normal 6.4-10.5 [facility] ([place] Comment on above: Performed By: #### T LUIS MYERS, DUDLEY, ANEU, ADIFF, CBC, GFR #### Aminata Bradford [address] [place], [place] [address] RBC 3.39 10 6/mcL Low 4.50-6.00 [facility] ([place]) Comment on above: Performed By: #### T LUIS MYERS, BMP, ANEU, ADIFF, CBC, GFR #### [facility] [address] [place], [place] [address] WBC 4.6 10 3/mcL Normal 4.5-10.8 [facility] ([place] Comment on above: Performed By: #### T LUIS MYERS, BMP, ANEU, ADIFF, CBC, GFR #### [facility] [address] [place], [place] [address] TROPHSon 10-27-2023 Troponin I High Sensitivity 10.1 ng/L Normal 0.0-76.2 [facility] ([place]) Comment on above: Performed By: #### M ORPH, GFR, CBC, ANEU, RFP, ADIFF #### [address] [address] XR CHEST 1 VIEWon 10-27-2023 XR CHEST 1 VIEW ORIGINAL EXAMINATION: ONE XRAY VIEW OF THE CHEST 10/27/2023 5:03 pm COMPARISON: Chest x-ray 11/14/2022 HISTORY: ORDERING SYSTEM PROVIDED HISTORY: Reason for Exam: pain FINDINGS: The cardiomediastinal silhouette is normal. No focal consolidation, vascular congestion, pleural effusion or pneumothorax. Similar mild elevation of the right hemidiaphragm. No acute osseous abnormality. IMPRESSION: No acute radiographic abnormality. I have personally reviewed the images of this examination and agree with the resident's findings and interpretation. Interpreted by: Jesús York Preliminary Report By: Ling West Electronically signed By Jesús York Dictated Date: 10/27/2023 5:11:55 PM Prelim Date: 10/27/2023 5:13:07 PM Sign Date: 10/27/2023 5:17:11 PM Ordering Provider: LEONARDO Kamara [facility] ([place]) CNOVon 10-21-2023 CNOV Office Visit ([facility] ) CAROLYN ABBOTT ([id number]) 1950 M UPA Date Time Provider Department 10/21/23 8:[address] [facility] During your visit today, we recorded the following information about you: Temperature Pulse Respiration Blood pressure 98.4 degrees 70/minute 16/minute 140/90 Weight 104.8 kg Day Rod, 10/21/2023 9:37 AM Signed Carolyn Abbott is a 72 year old MALE who presents with Ear Problem (Right ear pain ear feels clogged 1 day) HPI PAST MEDICAL HISTORY Diagnosis Date Abnormal renal ultrasound 05/26/2022 No evidence of hemodynamically significant arterial stenosis, involving the right renal artery. Consistent with less than 60% stenosis. No evidence of hemodynamically significant arterial stenosis, involving the left renal artery. Consistent with less than 60% stenosis. Aortic stenosis 2019 Bilateral leg pain foward emg results to neuro when received; etiology unclear, but reassuring that activity actually improved the issue; possible differentials include funcitonal magnesium deficiency from his chronic use of diuretic therapy, soreness from uncontrolled leg movements that night, less likely radiculopathy/spinal stenosis- not unknown medication side effect and no med change. 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 History of echocardiogram 05/28/2022 EF 55%. Mild concentric left ventricular hypertrophy. Stage 1 diastolic dysfunction. No regional wall motion abnormalities noted. History of echocardiogram 11/26/2020 EF 65%. Normal LV size. Left ventricular systolic function is normal. Mild-moderate mitral annular calcification. Mild-moderate eccentric mitral valve insufficiency. Mild focal aortic valve calcification. Mild aortic stenosis. History of echocardiogram 01/27/2020 EF 60%. Normal LV size. Left ventricular systolic function is normal. Moderate focal aortic valve calcification. Stage 1 diastolic dysfunction. Pulmonary artery systolic pressure is 20 mmHg. History of echocardiogram 12/24/2015 EF 55%. Normal LV size. Mild concentric left ventricular hypertrophy. Left ventricular systolic function is normal. Transmitral and pulmonary venous doppler flow suggestive of impaired relaxation of left ventricle. Mild (1+) tricuspid valve insufficiency. History of prostate cancer 1980 Diagnosed in mid 1980s, with some adenopathy in the abdomen History of stress test 01/16/2021 EF 71% Evidence of probable inferior myocardial ischemia. Hypogonadism in male IFG (impaired fasting glucose) Joint pain Lumbar spinal stenosis Multiple acquired skin tags PATRICIO (obstructive sleep apnea) Parkinson's disease 2017 Polycystic kidney disease Polyneuropathy lower extremities, very mild, NCS 08/2021 Respiratory symptoms Valvular heart disease 2016 Vitamin D deficiency Vitreous degeneration ACTIVE PROBLEM LIST History of Echocardiogram Aortic Stenosis Abnormal Renal Ultrasound Patricio (Obstructive Sleep Apnea) History of Cardiac Cath Chronic Diastolic Hf (Heart Failure) ([facility]) Current Outpatient Medications Medication Sig Dispense Refill carvedilol (COREG) 25 mg tablet Take 1 tablet by mouth two times a day with meals. 180 tablet 2 hydroCHLOROthiazide 12.5 mg capsule Take 12.5 mg by mouth once daily. Ferrous Sulfate (SLOW FE) 142 mg (45 mg iron) TbER once daily. cyanocobalamin (VITAMIN B-12) 1,000 mcg tab Take 1,000 mcg by mouth once daily. amLODIPine (NORVASC) 10 mg tablet Take 1 tablet by mouth once daily. 90 tablet 3 primidone (MYSOLINE) 50 mg tablet Take 100 mg by mouth twice daily. aspirin, enteric coated (ASPIRIN, ENTERIC COATED) 81 mg EC tablet Take 81 mg by mouth once daily. cndpvexgo-rqktznzu-yof acapone (STALEVO 200) 50-200-200 mg per tablet Take 1 tablet by mouth three times daily. cloNIDine TTS (CATAPRES-TTS) 0.1 mg/24 hr once daily as needed. hydrALAZINE (APRESOLINE) 100 mg tablet Take 100 mg by mouth three times daily. MAGNESIUM GLUCONATE ORAL Take 500 mg by mouth once daily. pramipexole (MIRAPEX) 0.25 mg tablet Take 0.25 mg by mouth three times daily. ascorbic acid, vitamin C, (VITAMIN C) 500 mg tablet Take 1,500 mg by mouth once daily. ergocalciferol, vitamin D2, 50 mcg (2,000 unit) tab Take by mouth once daily. eokmiepm-ktvdsloxj-qfk rocortisone (CORTISPORIN) 3.5-10,000-1 mg/mL-unit/mL-% otic suspension Use 4 Drops in both ears three times a day for 5 days. 3 mL 0 amoxicillin (AMOXIL) 875 mg tablet Take 1 tablet by mouth two times a day for 10 days. 20 tablet 0 (more content not included)... Normal [facility] .GFRon 10-09-2023 GFR Non- 51 ml/min/1.73sqm Normal [facility] ([place]) Comment on above: Result Comment: GFR Population mean for , Non- Americans Ages 20-29 = 116 mL/min/1.73 sq.m. Ages 30-39 = 107 mL/min/1.73 sq.m. Ages 40-49 = 99 mL/min/1.73 sq.m. Ages 50-59 = 93 mL/min/1.73 sq.m. Ages 60-69 = 85 mL/min/1.73 sq.m. Ages 70+ = 75 mL/min/1.73 sq.m. Chronic Kidney Disease: Less than 60 mL/min/1.73 square meters End Stage Renal Disease: Less than 15 mL/min/1.73 square meters Performed By: #### M ORPH, GFR, CBC, ANEU, RFP, ADIFF #### [address] [address] GFR >60 Normal [facility] ([place]) Comment on above: Result Comment: GFR Population mean for , Non- Americans Ages 20-29 = 116 mL/min/1.73 sq.m. Ages 30-39 = 107 mL/min/1.73 sq.m. Ages 40-49 = 99 mL/min/1.73 sq.m. Ages 50-59 = 93 mL/min/1.73 sq.m. Ages 60-69 = 85 mL/min/1.73 sq.m. Ages 70+ = 75 mL/min/1.73 sq.m. Chronic Kidney Disease: Less than 60 mL/min/1.73 square meters End Stage Renal Disease: Less than 15 mL/min/1.73 square meters Performed By: #### M ORPH, GFR, CBC, ANEU, RFP, ADIFF #### [address] [address] BMPon 10-09-2023 BUN/Creatinine Ratio 30.7 ratio High 10.0-22.0 [facility] ([place]) Comment on above: Performed By: #### M ORPH, GFR, CBC, ANEU, RFP, ADIFF #### [address] [address] Calcium [Mass/Vol] 9.3 mg/dL Normal 8.7-10.4 [facility] ([place]) Comment on above: Performed By: #### M ORPH, GFR, CBC, ANEU, RFP, ADIFF #### [address] [address] Chloride [Moles/Vol] 108 mmol/L Normal 98-110 [facility] ([place]) Comment on above: Performed By: #### M ORPH, GFR, CBC, ANEU, RFP, ADIFF #### [address] [address] CO2 [Moles/Vol] 27 mmol/L Normal 22-32 [facility] ([place]) Comment on above: Performed By: #### M ORPH, GFR, CBC, ANEU, RFP, ADIFF #### [address] [address] Creatinine [Mass/Vol] 1.37 mg/dL Normal 0.60-1.40 [facility] ([place]) Comment on above: Performed By: #### M ORPH, GFR, CBC, ANEU, RFP, ADIFF #### [address] [address] Electrolyte Balance 6.0 mEq/L Normal 4.0-15.0 [facility] ([place]) Comment on above: Performed By: #### M ORPH, GFR, CBC, ANEU, RFP, ADIFF #### [address] [address] Glucose [Mass/Vol] 96 mg/dL Normal 82-115 [facility] ([place]) Comment on above: Performed By: #### M ORPH, GFR, CBC, ANEU, RFP, ADIFF #### [address] [address] Potassium [Moles/Vol] 5.3 mmol/L High 3.5-5.0 [facility] ([place]) Comment on above: Performed By: #### M ORPH, GFR, CBC, ANEU, RFP, ADIFF #### [facility] [address] [place] [address] Sodium [Moles/Vol] 141 mmol/L Normal 136-145 [facility] ([place]) Comment on above: Performed By: #### M ORPH, GFR, CBC, ANEU, RFP, ADIFF #### [facility] [address] [place] [address] Urea nitrogen [Mass/Vol] 42.0 mg/dL High 8.0-22.0 [facility] ([place]) Comment on above: Performed By: #### M ORPH, GFR, CBC, ANEU, RFP, ADIFF #### [facility] [address] [place] [address] Office Visiton 07-28-2023 Follow-up visit [id number] Carolyn Abbott 1950 M Date Provider Department Center 07/28/[address] [facility] None Family History Family Status - Relation Status Age at Father Notes: heart problems Mother Notes: heart problem Level of Service:08057 [facility] OFFICE/OUTPATIENT ESTABLISHED MOD MDM 30-39 MIN Reason for Visit and Comments: Follow-up [478294] Parkinson's Disease [385] Normal [facility] Progress Noteon 07-28-2023 Progress Note [facility] [address] [facility] [address] [facility] [address] Dept: [phone] Dept Loc: [phone] Visit type: Established Patient Reason for Visit: Follow-up and Parkinson's Disease Assessment and Plan 1. Parkinson's disease with fluctuating manifestations, unspecified whether dyskinesia present 2. Essential tremor Subjective HPI: He reports that he is having periods of the day where he feels very fatigued. He denies freezing. He denies falls. He reports that his tremor is about the same. He reports that this fatigue is in late AM or afternoon/early evening. He reports that twice he tried the immediate release carb-levo without improvement. He reduced the pramipexole to at night only. The patient reports excessive daytime sleepiness. He is seeing Dr. Giang. He is getting oxygen at night. He is wearing CPAP. His security nurse and kidney doctor said he looks good. He saw Dr. Giang two weeks ago. Snore? Not with the CPAP on, but yes without it. Tired? Yes Obstructive apneas? Yes Blood Pressure meds? Yes BMI over 28? Yes Age over 50? Yes Neck more than 17 in? Yes Gender male? Yes STOP BANG score of 8. REVIEW OF SYSTEMS: Review of Systems Constitutional: Positive for fatigue. Negative for appetite change, chills, diaphoresis, fever and unexpected weight change. HENT: Negative for dental problem and mouth sores. Eyes: Negative for discharge and itching. Respiratory: Negative for chest tightness and shortness of breath. Cardiovascular: Negative for chest pain, palpitations and leg swelling. Gastrointestinal: Negative for abdominal pain, nausea, rectal pain and vomiting. Endocrine: Negative for polydipsia, polyphagia and polyuria. Genitourinary: Negative for decreased urine volume, flank pain and genital sores. Musculoskeletal: Positive for back pain. Negative for arthralgias and neck pain. Skin: Negative for color change. Allergic/Immunologic: Negative for food allergies and immunocompromised state. Neurological: Positive for dizziness, tremors and weakness. Negative for syncope, light-headedness and headaches. Hematological: Negative for adenopathy. Does not bruise/bleed easily. Psychiatric/Behavioral : Negative for agitation, behavioral problems, confusion, decreased concentration, sleep disturbance and suicidal ideas. Allergies Allergen Reactions Allopurinol Other reaction(s): Possible cause of rash on legs: went away after stopping Clindamycin Propranolol Leg edema Simvastatin Other reaction(s): myalgia Sulfa Antibiotics Current Outpatient Medications: amLODIPine (Norvasc) 10 MG tablet, , Disp: , Rfl: Ascorbic Acid (VITAMIN C PO), Take 500 mg by mouth., Disp: , Rfl: Ascorbic Acid (vitamin C) 1000 MG tablet, Take 1 tablet (1,000 mg) by mouth with evening meal. And a meal, Disp: 90 tablet, Rfl: 3 betamethasone, augmented, (Diprolene AF) 0.05 % cream, APPLY TO THE AREAS OF RASH ON THE LEGS DAILY NEEDED, Disp: , Rfl: carbidopa-levodopa (Sinemet) 25-100 MG tablet, Take 1 tablet by mouth every 8 hours as needed (worsening Parkinson's tremor)., Disp: 90 tablet, Rfl: 0 carbidopa-levodopa CR (Sinemet CR) 50-200 MG ER tablet, Take 1 tablet by mouth 3 times daily. Do not crush or chew., Disp: 270 tablet, Rfl: 3 carvedilol (Coreg) 25 MG tablet, 25 mg in the morning and 25 mg in the evening., Disp: , Rfl: cholecalciferol (Vitamin D-3) 50 MCG (2000 UT) capsule, Take by mouth., Disp: , Rfl: Ferrous Sulfate (SLOW FE PO), Take by mouth., Disp: , Rfl: hydrALAZINE (Apresoline) 50 MG tablet, Take by mouth., Disp: , Rfl: hydroCHLOROthiazide (Microzide) 12.5 MG capsule, Take 12.5 mg by mouth daily. Takes 1 tab every other day., Disp: , Rfl: magnesium gluconate 250 MG tablet, 250 mg., Disp: , Rfl: Patiromer Sorbitex Calcium (Veltassa) 8.4 g pack, Take by mouth., Disp: , Rfl: pramipexole (Mirapex) 0.25 MG tablet, Take 1 tablet (0.25 mg) by mouth in the morning and 1 tablet (0.25 mg) at noon and 1 tablet (0.25 mg) before bedtime., Disp: 270 tablet, Rfl: 1 primidone (Mysoline) 50 MG tablet, TAKE 2 TABLETS TWICE A DAY, Disp: 360 tablet, Rfl: 1 aspirin 81 MG EC tablet, , Disp: , Rfl: Cyanocobalamin (VITAMIN B 12 PO), Take by mouth., Disp: , Rfl: hydrALAZINE (Apresoline) 10 MG tablet, Take 10 mg by mouth in the morning and 10 mg in the evening., Disp: , Rfl: Lokelma 5 g packet, , Disp: , Rfl: magnesium oxide (Mag-Ox) 400 MG tablet, Take 250 mg by mouth daily., Disp: , Rfl: metaxalone (Skelaxin) 800 MG tablet, TAKE 1 TABLET BY MOUTH EVERY 8 HOURS NEEDED (TIGHTNESS, SPASMS IN LEGS), Disp: , Rfl: pramipexole (Mirapex) 0.25 MG tablet, Take 1 tablet (0.25 mg) by mouth 3 times daily., Disp: 270 tablet, Rfl: 2 Past Medical History: Diagnosis Date Back pain Cancer (CMS/HCC) (HCC) HL (hearing loss) Hypertension Lumbar stenosis Parkinson's disease Sl (more content not included)... Normal [facility] ERYTHon 07-27-2023 Erythropoietin 13.4 mIU/mL Normal 2.6-18.5 [facility] ([place]) Comment on above: Result Comment: Test analyzed by the [employer] DxI method. Performed By: [facility] [place] [address] [place] [address] Script Artist: Teo French III, M.D. CLIA#: [id number] Performed By: #### Sandy PO BMP, GFR #### [address] [address] .GFRon 07-24-2023 GFR >60 Normal [facility] ([place]) Comment on above: Result Comment: GFR Population mean for , Non- Americans Ages 20-29 = 116 mL/min/1.73 sq.m. Ages 30-39 = 107 mL/min/1.73 sq.m. Ages 40-49 = 99 mL/min/1.73 sq.m. Ages 50-59 = 93 mL/min/1.73 sq.m. Ages 60-69 = 85 mL/min/1.73 sq.m. Ages 70+ = 75 mL/min/1.73 sq.m. Chronic Kidney Disease: Less than 60 mL/min/1.73 square meters End Stage Renal Disease: Less than 15 mL/min/1.73 square meters Performed By: #### E PO, BMP, GFR #### [address] [address] GFR Non- 57 ml/min/1.73sqm Normal [facility] ([place]) Comment on above: Result Comment: GFR Population mean for , Non- Americans Ages 20-29 = 116 mL/min/1.73 sq.m. Ages 30-39 = 107 mL/min/1.73 sq.m. Ages 40-49 = 99 mL/min/1.73 sq.m. Ages 50-59 = 93 mL/min/1.73 sq.m. Ages 60-69 = 85 mL/min/1.73 sq.m. Ages 70+ = 75 mL/min/1.73 sq.m. Chronic Kidney Disease: Less than 60 mL/min/1.73 square meters End Stage Renal Disease: Less than 15 mL/min/1.73 square meters Performed By: #### E PO, BMP, GFR #### [address] [address] BMPon 07-24-2023 BUN/Creatinine Ratio 29.8 ratio High 10.0-22.0 [facility] ([place]) Comment on above: Performed By: #### E PO, BMP, GFR #### [address] [address] Calcium [Mass/Vol] 9.2 mg/dL Normal 8.7-10.4 [facility] ([place]) Comment on above: Performed By: #### E PO, BMP, GFR #### [address] [address] Chloride [Moles/Vol] 106 mmol/L Normal 98-110 [facility] ([place]) Comment on above: Performed By: #### E PO, BMP, GFR #### [address] [address] CO2 [Moles/Vol] 27 mmol/L Normal 22-32 [facility] ([place]) Comment on above: Performed By: #### E PO, BMP, GFR #### [address] [address] Creatinine [Mass/Vol] 1.24 mg/dL Normal 0.60-1.40 [facility] ([place]) Comment on above: Performed By: #### E PO, BMP, GFR #### [address] [address] Electrolyte Balance 5.0 mEq/L Normal 4.0-15.0 [facility] ([place]) Comment on above: Performed By: #### E PO, BMP, GFR #### [address] [address] Glucose [Mass/Vol] 104 mg/dL Normal 82-115 [facility] ([place]) Comment on above: Performed By: #### E PO, BMP, GFR #### [address] [address] Potassium [Moles/Vol] 4.9 mmol/L Normal 3.5-5.0 [facility] ([place]) Comment on above: Result Comment: Spec imen slightly hemolyzed. Performed By: #### E PO, BMP, GFR #### [address] [address] Sodium [Moles/Vol] 138 mmol/L Normal 136-145 [facility] ([place]) Comment on above: Performed By: #### E PO, BMP, GFR #### [address] [address] Urea nitrogen [Mass/Vol] 37.0 mg/dL High 8.0-22.0 [facility] ([place]) Comment on above: Performed By: #### E PO, BMP, GFR #### [address] [address] .GFRon 07-09-2023 GFR >60 Normal [facility] ([place]) Comment on above: Result Comment: GFR Population mean for , Non- Americans Ages 20-29 = 116 mL/min/1.73 sq.m. Ages 30-39 = 107 mL/min/1.73 sq.m. Ages 40-49 = 99 mL/min/1.73 sq.m. Ages 50-59 = 93 mL/min/1.73 sq.m. Ages 60-69 = 85 mL/min/1.73 sq.m. Ages 70+ = 75 mL/min/1.73 sq.m. Chronic Kidney Disease: Less than 60 mL/min/1.73 square meters End Stage Renal Disease: Less than 15 mL/min/1.73 square meters Performed By: #### M ORPH, GFR, CBC, ANEU, RFP, ADIFF #### [address] [address] GFR Non- 56 ml/min/1.73sqm Normal [facility] ([place]) Comment on above: Result Comment: GFR Population mean for , Non- Americans Ages 20-29 = 116 mL/min/1.73 sq.m. Ages 30-39 = 107 mL/min/1.73 sq.m. Ages 40-49 = 99 mL/min/1.73 sq.m. Ages 50-59 = 93 mL/min/1.73 sq.m. Ages 60-69 = 85 mL/min/1.73 sq.m. Ages 70+ = 75 mL/min/1.73 sq.m. Chronic Kidney Disease: Less than 60 mL/min/1.73 square meters End Stage Renal Disease: Less than 15 mL/min/1.73 square meters Performed By: #### M ORPH, GFR, CBC, ANEU, RFP, ADIFF #### [address] [address] .Auto Diffon 07-08-2023 Basophil, Absolute 0.0 10 3/mcL Normal 0.0-0.3 [facility] ([place]) Comment on above: Performed By: #### M ORPH, GFR, CBC, ANEU, RFP, ADIFF #### [address] [address] Basophils/100 WBC (Bld) 0.6 % Normal 0.0-2.5 [facility] ([place]) Comment on above: Performed By: #### M ORPH, GFR, CBC, ANEU, RFP, ADIFF #### [address] [address] Eosinophil, Absolute 0.1 10 3/mcL Normal 0.0-0.7 [facility] ([place]) Comment on above: Performed By: #### M ORPH, GFR, CBC, ANEU, RFP, ADIFF #### [address] [address] Eosinophils/100 WBC (Bld) 2.5 % Normal 0.0-6.0 [facility] ([place]) Comment on above: Performed By: #### M ORPH, GFR, CBC, ANEU, RFP, ADIFF #### [address] [address] Lymphocyte, Absolute 0.8 10 3/mcL Low 0.9-4.3 [facility] ([place]) Comment on above: Performed By: #### M ORPH, GFR, CBC, ANEU, RFP, ADIFF #### [address] [address] Lymphocytes/100 WBC (Bld) 15.0 % Low 20.0-40.0 [facility] ([place]) Comment on above: Performed By: #### M ORPH, GFR, CBC, ANEU, RFP, ADIFF #### [place] [id number] Monocyte, Absolute 0.5 10 3/mcL Normal 0.1-1.4 [facility] ([place]) Comment on above: Performed By: #### M ORPH, GFR, CBC, ANEU, RFP, ADIFF #### [place] [id number] Monocytes/100 WBC (Bld) 9.2 % Normal 2.0-13.0 [facility] ([place]) Comment on above: Performed By: #### M ORPH, GFR, CBC, ANEU, RFP, ADIFF #### [address] [address] Neutrophils/100 WBC (Bld) 72.7 % Normal 50.0-75.0 [facility] ([place]) Comment on above: Performed By: #### M ORPH, GFR, CBC, ANEU, RFP, ADIFF #### [address] [address] .NEUABSon 07-08-2023 Neutrophil, Absolute 3.7 10 3/mcL Normal 2.3-8.1 [facility] ([place]) Comment on above: Performed By: #### M ORPH, GFR, CBC, ANEU, RFP, ADIFF #### [address] [address] CBCon 07-08-2023 Erythrocyte distribution width (RBC) [Ratio] 14.1 % Normal 11.5-15.5 [facility] ([place]) Comment on above: Performed By: #### M ORPH, GFR, CBC, ANEU, RFP, ADIFF #### [place] [address] Hematocrit (Bld) [Volume fraction] 30.9 % Low 40.0-52.0 [facility] ([place] Comment on above: Performed By: #### M ORPH, GFR, CBC, ANEU, RFP, ADIFF #### [place] [address] Hgb 10.9 G/dL Low 13.0-17.5 [facility] ([place] Comment on above: Performed By: #### M ORPH, GFR, CBC, ANEU, RFP, ADIFF #### [place] [address] MCH (RBC) [Entitic mass] 31.9 pg Normal 27.0-33.0 [facility] ([place] Comment on above: Performed By: #### M ORPH, GFR, CBC, ANEU, RFP, ADIFF #### [place] [address] MCHC 35.4 G/dL Normal 32.0-36.0 [facility] ([place] Comment on above: Performed By: #### M ORPH, GFR, CBC, ANEU, RFP, ADIFF #### [place] [address] MCV (RBC) [Entitic vol] 90.1 fL Normal 81.0-100.0 [facility] ([place] Comment on above: Performed By: #### M ORPH, GFR, CBC, ANEU, RFP, ADIFF #### [place] [address] Platelet 181 10 3/mcL Normal 150-450 [facility] ([place] Comment on above: Performed By: #### M ORPH, GFR, CBC, ANEU, RFP, ADIFF #### [place] [address] Platelet mean volume (Bld) [Entitic vol] 8.6 fL Normal 6.4-10.5 [facility] ([place] Comment on above: Performed By: #### M ORPH, GFR, CBC, ANEU, RFP, ADIFF #### [place] [address] RBC 3.43 10 6/mcL Low 4.50-6.00 [facility] ([place] Comment on above: Performed By: #### M ORPH, GFR, CBC, ANEU, RFP, ADIFF #### [place] [id number] WBC 5.1 10 3/mcL Normal 4.5-10.8 [facility] ([place] Comment on above: Performed By: #### M ORPH, GFR, CBC, ANEU, RFP, ADIFF #### [place] [address] CRURon 07-08-2023 U Creatinine 42.0 mg/dL Normal [facility] ([place] Comment on above: Performed By: #### M ORPH, GFR, CBC, ANEU, RFP, ADIFF #### [place] [address] FEon 07-08-2023 Iron [Mass/Vol] 68 ug/dL Normal 65-175 [facility] ([place] Comment on above: Performed By: #### M ORPH, GFR, CBC, ANEU, RFP, ADIFF #### [place] [address] Ceasar 07-08-2023 Ferritin [Mass/Vol] 85.2 ng/mL Normal 26.0-388.0 [facility] ([place] Comment on above: Performed By: #### M ORPH, GFR, CBC, ANEU, RFP, ADIFF #### [place] [id number] IBCon 07-08-2023 TIBC 245 mcg/dL Low 250-500 [facility] ([place]) Comment on above: Performed By: #### M ORPH, GFR, CBC, ANEU, RFP, ADIFF #### [place] [address] PRURon 07-08-2023 U Protein 64.0 mg/dL Normal [facility] ([place]) Comment on above: Performed By: #### M ORPH, GFR, CBC, ANEU, RFP, ADIFF #### [place] [address] PTHon 07-08-2023 PTH, Intact 29.2 pg/mL Normal 18.5-88.0 [facility] ([place]) Comment on above: Performed By: #### M ORPH, GFR, CBC, ANEU, RFP, ADIFF #### [address] [address] RFPon 07-08-2023 Albumin Level 3.8 G/dL Normal 3.2-4.8 [facility] ([place]) Comment on above: Performed By: #### M ORPH, GFR, CBC, ANEU, RFP, ADIFF #### [address] [address] BUN/Creatinine Ratio 29.3 ratio High 10.0-22.0 [facility] ([place]) Comment on above: Performed By: #### M ORPH, GFR, CBC, ANEU, RFP, ADIFF #### [address] [address] Calcium [Mass/Vol] 9.6 mg/dL Normal 8.7-10.4 [facility] ([place]) Comment on above: Performed By: #### M ORPH, GFR, CBC, ANEU, RFP, ADIFF #### [address] [address] Chloride [Moles/Vol] 106 mmol/L Normal 98-110 [facility] ([place]) Comment on above: Performed By: #### M ORPH, GFR, CBC, ANEU, RFP, ADIFF #### [address] [address] CO2 [Moles/Vol] 30 mmol/L Normal 22-32 [facility] ([place]) Comment on above: Performed By: #### M ORPH, GFR, CBC, ANEU, RFP, ADIFF #### [address] [address] Creatinine [Mass/Vol] 1.33 mg/dL Normal 0.60-1.40 [facility] ([place]) Comment on above: Performed By: #### M ORPH, GFR, CBC, ANEU, RFP, ADIFF #### [address] [address] Electrolyte Balance 3.0 mEq/L Low 4.0-15.0 [facility] ([place]) Comment on above: Performed By: #### M ORPH, GFR, CBC, ANEU, RFP, ADIFF #### [address] [address] Glucose [Mass/Vol] 100 mg/dL Normal 82-115 [facility] ([place]) Comment on above: Performed By: #### M ORPH, GFR, CBC, ANEU, RFP, ADIFF #### [address] [address] Phosphate [Mass/Vol] 5.3 mg/dL High 2.4-5.1 [facility] ([place]) Comment on above: Result Comment: No te - New Reference Range in effect 20 Performed By: #### M ORPH, GFR, CBC, ANEU, RFP, ADIFF #### [address] [address] Potassium [Moles/Vol] 5.4 mmol/L High 3.5-5.0 [facility] ([place] Comment on above: Performed By: #### M ORPH, GFR, CBC, ANEU, RFP, ADIFF #### [address] [address] Sodium [Moles/Vol] 139 mmol/L Normal 136-145 [facility] ([place]) Comment on above: Performed By: #### M ORPH, GFR, CBC, ANEU, RFP, ADIFF #### [address] [address] Urea nitrogen [Mass/Vol] 39.0 mg/dL High 8.0-22.0 [facility] ([place]) Comment on above: Performed By: #### M ORPH, GFR, CBC, ANEU, RFP, ADIFF #### [address] [address] CNOVon 06-12-2023 CNOV Office Visit (LINDAO ) CAROLYN ABBOTT ([id number]) 1950 M LISANDRA Date Time Provider Department 06/12/23 9:30 AM MILTON BASILIO During your visit today, we recorded the following information about you: Pulse Blood pressure Weight Height 65/minute 138/90 103.5 kg 1.778 m Milton Basilio DO 06/13/2023 5:15 AM Signed Referring Provider: No ref. provider found Date: June 12, 2023 Chief Complaint: Established Patient Follow-Up (6 month follow up, hx of HTN. /) HISTORY OF PRESENT ILLNESS: Carolyn Abbott is a 72 year old male who presents for Established Patient Follow-Up (6 month follow up, hx of HTN. ). ALLERGIES Allergen Reactions Clindamycin Swelling Sulfa (Sulfonamide * Unknown PAST MEDICAL HISTORY: PAST MEDICAL HISTORY Diagnosis Date Abnormal renal ultrasound 05/26/2022 No evidence of hemodynamically significant arterial stenosis, involving the right renal artery. Consistent with less than 60% stenosis. No evidence of hemodynamically significant arterial stenosis, involving the left renal artery. Consistent with less than 60% stenosis. Aortic stenosis 2019 Bilateral leg pain foward emg results to neuro when received; etiology unclear, but reassuring that activity actually improved the issue; possible differentials include funcitonal magnesium deficiency from his chronic use of diuretic therapy, soreness from uncontrolled leg movements that night, less likely radiculopathy/spinal stenosis- not unknown medication side effect and no med change. 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 History of echocardiogram 05/28/2022 EF 55%. Mild concentric left ventricular hypertrophy. Stage 1 diastolic dysfunction. No regional wall motion abnormalities noted. History of echocardiogram 11/26/2020 EF 65%. Normal LV size. Left ventricular systolic function is normal. Mild-moderate mitral annular calcification. Mild-moderate eccentric mitral valve insufficiency. Mild focal aortic valve calcification. Mild aortic stenosis. History of echocardiogram 01/27/2020 EF 60%. Normal LV size. Left ventricular systolic function is normal. Moderate focal aortic valve calcification. Stage 1 diastolic dysfunction. Pulmonary artery systolic pressure is 20 mmHg. History of echocardiogram 12/24/2015 EF 55%. Normal LV size. Mild concentric left ventricular hypertrophy. Left ventricular systolic function is normal. Transmitral and pulmonary venous doppler flow suggestive of impaired relaxation of left ventricle. Mild (1+) tricuspid valve insufficiency. History of prostate cancer 1980 Diagnosed in mid 1980s, with some adenopathy in the abdomen History of stress test 01/16/2021 EF 71% Evidence of probable inferior myocardial ischemia. Hypogonadism in male IFG (impaired fasting glucose) Joint pain Lumbar spinal stenosis Multiple acquired skin tags PATRICIO (obstructive sleep apnea) Parkinson's disease 2017 Polycystic kidney disease Polyneuropathy lower extremities, very mild, NCS 08/2021 Respiratory symptoms Valvular heart disease 2017 Vitamin D deficiency Vitreous degeneration PAST SURGICAL HISTORY Procedure Laterality Date REPAIR EPIGASTRIC HERNIA,REDUC 12/2022 ULTRASOUND GUIDANCE FOR VENOUS ABLATION FAMILY HISTORY Problem Relation Age of Onset Diabetes Mother Hypertension Mother Diabetes Father Hypertension Father Heart Attack Father Heart disease Father Diabetes Sister Hypertension Sister Cancer Brother Heart disease Brother Hypertension Brother No Known Problems Paternal Grandfather SOCIAL HISTORY: Tobacco Use: Never Alcohol Use: Not Currently Drug Use: Never Employer And Job Title: None on file Years Of Education Completed: Not specified Marital Status: MEDICATIONS: Current Outpatient Medications Medication Sig amLODIPine (NORVASC) 10 mg tablet Take 1 tablet by mouth once daily. ascorbic acid, vitamin C, (VITAMIN C) 500 mg tablet Take 1,500 mg by mouth once daily. aspirin, enteric coated (ASPIRIN, ENTERIC COATED) 81 mg EC tablet Take 81 mg by mouth once daily. dsatbljko-vtmiiael-kgf acapone (STALEVO 200) 50-200-200 mg per tablet Take 1 tablet by mouth three times daily. carvedilol (COREG) 25 mg tablet Take 1 tablet by mouth twice daily with meals. cloNIDine TTS (CATAPRES-TTS) 0.1 mg/24 hr once daily as needed. cyanocobalamin (VITAMIN B-12) 1,000 mcg tab Take 1,000 mcg by mouth once daily. ergocalciferol, vitamin D2, 50 mcg (2,000 unit) tab Take by mouth once daily. Ferr (more content not included)... Normal [facility] ECG COMPLETEon 06-12-2023 ECG COMPLETE Ventricular Rate : 6 5 BPM Atrial Rate : 65 BPM P-R Interval : 224 ms QRS Duration : 82 ms Q-T Interval : 428 ms QTC Calculation(Bazett) : 445 ms Calculated P [place] : 33 degrees Calculated R [place] : 44 degrees Calculated T [place] : 35 degrees Sinus rhythm with 1st degree AV block Otherwise normal ECG No previous ECGs available Confirmed by MILTON BASILIO DO ([id number]) on 06/14/2023 7:24:17 PM NAME : CAROLYN ABBOTT PID : [id number] : 1950 Gender : Male Race : ORD : [id number] Procedure Date : Jun 12 2023 09:45:22 Edit Date : Jun 14 2023 19:24:20 Diagnosis: Sinus rhythm with 1st degree AV block Otherwise normal ECG No previous ECGs available Confirmed by MILTON BASILIO DO ([id number]) on 06/14/2023 7:24:17 PM Test Reason : HCS Location : 2 : UPCARD Overread By : MILTON BASILIO DO Edited By : MILTON BASILIO DO Referred By : , Acquired by : , [facility] 36on 05-18-2023 36 Last ov- 04/27/23 Next ov- 07/28/23 [facility] 04-30-2023 Potassium [Moles/Vol] 4.9 mmol/L Normal 3.5-5.0 [facility] ([place]) Comment on above: Result Comment: Spec imen slightly hemolyzed. Performed By: #### M ORPH, GFR, CBC, ANEU, RFP, ADIFF #### [place] [address] 36on 04-27-2023 36 Message released to patient as written. Yes Patient's further questions if applicable: N/A Were all questions from office addressed or relayed to the patient from encounter: Yes [facility] 36 Call to patient. Lm on to call the office. Please inform patient, provider has sent 1 month supply to patient's local pharmacy. [facility] 36 Patient was seen in office today. Patient stated will take a couple of weeks to receive medication from [facility] pharmacy. Patient is requesting to send a prescription for the Sinemet 25-100 mg to local pharmacy- [facility] pharmacy so patient will have medication while waiting for mail pharmacy to send to patient. Normal [facility] Office Visiton 04-27-2023 Follow-up visit [id number] Carolyn Abbott 1950 M Date Provider Department Center 04/27/2023 [id number], RALPH Malone [facility] [place] NIKKO None Family History Family Status - Relation Status Age at Father Notes: heart problems Mother Notes: heart problem Level of Service:90082 [facility] OFFICE/OUTPATIENT ESTABLISHED MOD MDM 30-39 MIN Reason for Visit and Comments: Follow-up [002423] Parkinson's Disease [385] Normal [facility] Progress Noteon 04-27-2023 Progress Note [facility] [address] [facility] [address] Dept: [phone] Dept Loc: [phone] Visit type: Established Patient Reason for Visit: Follow-up and Parkinson's Disease Assessment and Plan 1. Parkinson disease (HCC) 2. Essential tremor Subjective HPI: He reports t he is feeling better since I took him off of the Stalevo and switched him to carb-levo. His tremor is a little worse, but he feels better. He reports that the Lokelma causes him to feel fatigued and temporarily makes his tremor worse. The Lokelma is associated with him having worsening of the constipation. REVIEW OF SYSTEMS: Review of Systems Constitutional: Positive for fatigue. Negative for appetite change, chills, diaphoresis, fever and unexpected weight change. HENT: Negative for dental problem and mouth sores. Eyes: Negative for discharge and itching. Respiratory: Negative for chest tightness and shortness of breath. Cardiovascular: Negative for chest pain, palpitations and leg swelling. Gastrointestinal: Negative for abdominal pain, nausea, rectal pain and vomiting. Endocrine: Negative for polydipsia, polyphagia and polyuria. Genitourinary: Negative for decreased urine volume, flank pain and genital sores. Musculoskeletal: Positive for back pain. Negative for arthralgias and neck pain. Skin: Negative for color change. Allergic/Immunologic: Negative for food allergies and immunocompromised state. Neurological: Positive for dizziness, tremors and weakness. Negative for syncope, light-headedness and headaches. Hematological: Negative for adenopathy. Does not bruise/bleed easily. Psychiatric/Behavioral : Negative for agitation, behavioral problems, confusion, decreased concentration, sleep disturbance and suicidal ideas. Answers submitted by the patient for this visit: Neurological Problem Questionnaire (Submitted on 04/22/2023) Chief Complaint: Neurologic complaint altered mental status: No clumsiness: No focal sensory loss: No focal weakness: No loss of balance: No memory loss: No near-syncope: No slurred speech: No visual change: No Chronicity: recurrent Onset: more than 1 year ago Onset quality: gradually Progression since onset: waxing and waning Focality: no focality noted auditory change: No aura: No bladder incontinence: No bowel incontinence: No vertigo: No Treatments tried: acetaminophen Improvement on treatment: significant Allergies Allergen Reactions Allopurinol Other reaction(s): Possible cause of rash on legs: went away after stopping Clindamycin Propranolol Leg edema Simvastatin Other reaction(s): myalgia Sulfa Antibiotics Current Outpatient Medications: amLODIPine (Norvasc) 10 MG tablet, , Disp: , Rfl: Ascorbic Acid (VITAMIN C PO), Take 500 mg by mouth., Disp: , Rfl: aspirin 81 MG EC tablet, , Disp: , Rfl: betamethasone, augmented, (Diprolene AF) 0.05 % cream, APPLY TO THE AREAS OF RASH ON THE LEGS DAILY NEEDED, Disp: , Rfl: carbidopa-levodopa CR (Sinemet CR) 50-200 MG ER tablet, Take 1 tablet by mouth 3 times daily. Do not crush or chew., Disp: 270 tablet, Rfl: 3 carvedilol (Coreg) 25 MG tablet, 25 mg in the morning and 25 mg in the evening., Disp: , Rfl: cholecalciferol (Vitamin D-3) 50 MCG (1999) capsule, Take by mouth., Disp: , Rfl: hydrALAZINE (Apresoline) 50 MG tablet, Take by mouth., Disp: , Rfl: hydroCHLOROthiazide (Microzide) 12.5 MG capsule, Take 12.5 mg by mouth daily. Takes 1 tab every other day., Disp: , Rfl: Lokelma 5 g packet, , Disp: , Rfl: magnesium oxide (Mag-Ox) 400 MG tablet, Take 250 mg by mouth daily., Disp: , Rfl: pramipexole (Mirapex) 0.25 MG tablet, Take 1 tablet (0.25 mg) by mouth 3 times daily., Disp: 270 tablet, Rfl: 2 primidone (Mysoline) 50 MG tablet, Take 2 tablets (100 mg) by mouth 2 times daily., Disp: 360 tablet, Rfl: 1 Ascorbic Acid (vitamin C) 1000 MG tablet, Take 1 tablet (1,000 mg) by mouth with evening meal. And a meal, Disp: 90 tablet, Rfl: 3 carbidopa-levodopa (Sinemet) 25-100 MG tablet, Take 1 tablet by mouth every 8 hours as needed (worsening Parkinson's tremor)., Disp: 270 tablet, Rfl: 1 Cyanocobalamin (VITAMIN B 12 PO), Take by mouth., Disp: , Rfl: Ferrous Sulfate (SLOW FE PO), Take by mouth., Disp: , Rfl: hydrALAZINE (Apresoline) 10 MG tablet, Take 10 mg by mouth in the morning and 10 mg in the evening., Disp: , Rfl: magnesium gluconate 250 MG tablet, 250 mg., Disp: , Rfl: metaxalone (Skelaxin) 800 MG tablet, TAKE 1 TABLET BY MOUTH EVERY 8 HOURS NEEDED (TIGHTNESS, SPASMS IN LEGS), Disp: , Rfl: pramipexole (Mirapex) 0.25 MG tablet, Take 1 tablet (0.25 mg) by mouth in the morning and 1 tablet (0.25 mg) at noon and 1 tablet (0.25 mg) before bedtime. (Patient not taking: Reported on 03/13/2023), Disp: 270 tablet, Rfl: 1 Past Medical History: Diagnosis Date Back pain Ca (more content not included)... [place] [id number] 36 Patient notified [facility] 03-25-2023 36 Call to patient. Lm on to call the office. Please inform patient. [place] [id number] 90 day sent to [facility] 36 Name of caller: Carl Contact phone number: [phone] Relationship to Patient: patient Provider: Practice: Neurology Chief Complaint/Reason for Call: Carl wanted to advise that the medication carbidopa-levodopa CR (Sinemet CR) 50-200 MG ER tablet has been working well. Carl advises that he has not seen a difference in his shaking as well. Carl is requesting to have a script of the medication sent to [facility] on file. Please be advised. Best time of day caller can be reached: Any Patient advised that office/PCP has 24-48 business hours to return their call: Yes Normal [facility] Office Visiton 03-13-2023 Follow-up visit [id number] Carolyn Abbott 1950 M Date Provider Department Center 03/13/2023 [id number]-KSAEARALPH [facility] NIKKO None Family History Family Status - Relation Status Age at Father Notes: heart problems Mother Notes: heart problem Level of Service:28772 [place] OFFICE/OUTPATIENT ESTABLISHED MOD MDM 30-39 MIN Reason for Visit and Comments: Follow-up [746953] Parkinson's Disease [385] Normal [facility] Progress Noteon 03-13-2023 Progress Note [facility] [address] [facility] [address] Dept: [phone] Dept Loc: [phone] Visit type: Established Patient Reason for Visit: Follow-up and Parkinson's Disease Assessment and Plan 1. Parkinson disease (HCC) 2. Essential tremor Subjective HPI: He is having trouble with low blood pressure. He reports that after he gets up in the AM and he takes his meds, then he exercises, and then he gets lightheaded. He then feels enervated and has trouble getting up the rest of the day. He reports that he is having low potassium and is having low potassium. He reports that he is having pain in the REVIEW OF SYSTEMS: Review of Systems Constitutional: Negative for appetite change, chills, diaphoresis, fever and unexpected weight change. HENT: Negative for dental problem and mouth sores. Eyes: Negative for discharge and itching. Respiratory: Negative for chest tightness. Cardiovascular: Negative for chest pain and leg swelling. Gastrointestinal: Negative for rectal pain and vomiting. Endocrine: Negative for polydipsia, polyphagia and polyuria. Genitourinary: Negative for decreased urine volume, flank pain and genital sores. Musculoskeletal: Positive for back pain. Negative for arthralgias. Skin: Negative for color change. Allergic/Immunologic: Negative for food allergies and immunocompromised state. Neurological: Positive for dizziness, tremors and weakness. Hematological: Negative for adenopathy. Does not bruise/bleed easily. Psychiatric/Behavioral : Negative for agitation, behavioral problems, decreased concentration, sleep disturbance and suicidal ideas. Allergies Allergen Reactions Allopurinol Other reaction(s): Possible cause of rash on legs: went away after stopping Clindamycin Propranolol Leg edema Simvastatin Other reaction(s): myalgia Sulfa Antibiotics Current Outpatient Medications: amLODIPine (Norvasc) 10 MG tablet, , Disp: , Rfl: Ascorbic Acid (VITAMIN C PO), Take 500 mg by mouth., Disp: , Rfl: aspirin 81 MG EC tablet, , Disp: , Rfl: betamethasone, augmented, (Diprolene AF) 0.05 % cream, APPLY TO THE AREAS OF RASH ON THE LEGS DAILY NEEDED, Disp: , Rfl: carbidopa-levodopa CR (Sinemet CR) 50-200 MG ER tablet, 2 times daily., Disp: , Rfl: carvedilol (Coreg) 25 MG tablet, 25 mg in the morning and 25 mg in the evening., Disp: , Rfl: cholecalciferol (Vitamin D-3) 50 MCG (2000 UT) capsule, Take by mouth., Disp: , Rfl: Cyanocobalamin (VITAMIN B 12 PO), Take by mouth., Disp: , Rfl: Ferrous Sulfate (SLOW FE PO), Take by mouth., Disp: , Rfl: hydrALAZINE (Apresoline) 10 MG tablet, Take 10 mg by mouth in the morning and 10 mg in the evening., Disp: , Rfl: hydroCHLOROthiazide (Microzide) 12.5 MG capsule, Take 12.5 mg by mouth daily. Takes 1 tab every other day., Disp: , Rfl: Lokelma 5 g packet, , Disp: , Rfl: magnesium gluconate 250 MG tablet, 250 mg., Disp: , Rfl: pramipexole (Mirapex) 0.25 MG tablet, Take 1 tablet (0.25 mg) by mouth 3 times daily., Disp: 270 tablet, Rfl: 2 primidone (Mysoline) 50 MG tablet, Take 2 tablets (100 mg) by mouth 2 times daily., Disp: 360 tablet, Rfl: 1 kshminzwl-zryxcyal-wrv acapone (Stalevo) 50-200-200 MG tablet, Take 1 tablet by mouth 3 times daily., Disp: 270 tablet, Rfl: 2 metaxalone (Skelaxin) 800 MG tablet, TAKE 1 TABLET BY MOUTH EVERY 8 HOURS NEEDED (TIGHTNESS, SPASMS IN LEGS), Disp: , Rfl: pramipexole (Mirapex) 0.25 MG tablet, Take 1 tablet (0.25 mg) by mouth in the morning and 1 tablet (0.25 mg) at noon and 1 tablet (0.25 mg) before bedtime. (Patient not taking: Reported on 03/13/2023), Disp: 270 tablet, Rfl: 1 Past Medical History: Diagnosis Date Back pain Cancer (CMS/HCC) (HCC) Hypertension Lumbar stenosis Testicular cancer (HCC) Testicular carcinoma, right (HCC) Social History Tobacco Use Smoking status: Never Smokeless tobacco: Never Substance Use Topics Alcohol use: Never Past Surgical History: Procedure Laterality Date HERNIA REPAIR 01/07/2023 OTHER SURGICAL HISTORY back injections TONSILLECTOMY (HISTORICAL) TUMOR REMOVAL No family history on file. Objective Vitals: BP (!) 179/86 (BP Location: Right arm) Pulse 62 Wt 228 lb (103 kg) BMI 34.16 kg/m? General Appearance: Patient is in no apparent distress. Head is normocephalic, atraumatic Cardiovascular: Regular rate and rhythm. No heart murmurs. No carotid bruit Neurologic: Mentation: Alert and oriented x 3 to person, place and time. Speech and Language: Speech and language normal Concentration and Attention: Concentration normal Memory: Memory normal Fund of Knowledge: Fund of knowledge normal Cranial Nerves: II, III, IV, V, , VII, VIII, IX, X, XI, XII examined and were intact. Motor: Strength: Strength 5 out of 5 with normal tone Alternating Movements: Normal Cogwheel Rigidity: None Tone (more content not included)... Normal [facility] 36on 03-12-2023 36 Patient scheduled fo r an earlier appointment Normal [facility] 36 Lm for patient to ca ll the office back, please transfer him back to the office when he call back. Normal [facility] .GFRon 03-02-2023 GFR >60 Normal [facility] ([place]) Comment on above: Result Comment: GFR Population mean for , Non- Americans Ages 20-29 = 116 mL/min/1.73 sq.m. Ages 30-39 = 107 mL/min/1.73 sq.m. Ages 40-49 = 99 mL/min/1.73 sq.m. Ages 50-59 = 93 mL/min/1.73 sq.m. Ages 60-69 = 85 mL/min/1.73 sq.m. Ages 70+ = 75 mL/min/1.73 sq.m. Chronic Kidney Disease: Less than 60 mL/min/1.73 square meters End Stage Renal Disease: Less than 15 mL/min/1.73 square meters Performed By: #### M ORPH, GFR, CBC, ANEU, RFP, ADIFF #### [address] [address] GFR Non- 54 ml/min/1.73sqm Normal [facility] ([place]) Comment on above: Result Comment: GFR Population mean for , Non- Americans Ages 20-29 = 116 mL/min/1.73 sq.m. Ages 30-39 = 107 mL/min/1.73 sq.m. Ages 40-49 = 99 mL/min/1.73 sq.m. Ages 50-59 = 93 mL/min/1.73 sq.m. Ages 60-69 = 85 mL/min/1.73 sq.m. Ages 70+ = 75 mL/min/1.73 sq.m. Chronic Kidney Disease: Less than 60 mL/min/1.73 square meters End Stage Renal Disease: Less than 15 mL/min/1.73 square meters Performed By: #### M ORPH, GFR, CBC, ANEU, RFP, ADIFF #### [address] [address] RFPon 03-02-2023 Albumin Level 3.9 G/dL Normal 3.2-4.8 [facility] ([place]) Comment on above: Performed By: #### M ORPH, GFR, CBC, ANEU, RFP, ADIFF #### [address] [address] BUN/Creatinine Ratio 31.3 ratio High 10.0-22.0 [facility] ([place]) Comment on above: Performed By: #### M ORPH, GFR, CBC, ANEU, RFP, ADIFF #### [address] [address] Calcium [Mass/Vol] 9.1 mg/dL Normal 8.7-10.4 [facility] ([place]) Comment on above: Performed By: #### M ORPH, GFR, CBC, ANEU, RFP, ADIFF #### [address] [address] Chloride [Moles/Vol] 111 mmol/L High 98-110 [facility] ([place]) Comment on above: Performed By: #### M ORPH, GFR, CBC, ANEU, RFP, ADIFF #### [address] [address] CO2 [Moles/Vol] 24 mmol/L Normal 22-32 [facility] ([place]) Comment on above: Performed By: #### M ORPH, GFR, CBC, ANEU, RFP, ADIFF #### [address] [address] Creatinine [Mass/Vol] 1.31 mg/dL Normal 0.60-1.40 [facility] ([place]) Comment on above: Performed By: #### M ORPH, GFR, CBC, ANEU, RFP, ADIFF #### [address] [address] Electrolyte Balance 4.0 mEq/L Normal 4.0-15.0 [facility] ([place]) Comment on above: Performed By: #### M ORPH, GFR, CBC, ANEU, RFP, ADIFF #### [address] [address] Glucose [Mass/Vol] 98 mg/dL Normal 82-115 [facility] ([place]) Comment on above: Performed By: #### M ORPH, GFR, CBC, ANEU, RFP, ADIFF #### [address] [address] Phosphate [Mass/Vol] 4.7 mg/dL Normal 2.4-5.1 [facility] ([place]) Comment on above: Result Comment: No te - New Reference Range in effect 20 Performed By: #### M ORPH, GFR, CBC, ANEU, RFP, ADIFF #### [address] [address] Potassium [Moles/Vol] 4.9 mmol/L Normal 3.5-5.0 [facility] [facility] ([place]) Comment on above: Performed By: #### M ORPH, GFR, CBC, ANEU, RFP, ADIFF #### [address] [address] Sodium [Moles/Vol] 139 mmol/L Normal 136-145 [facility] ([place]) Comment on above: Performed By: #### M ORPH, GFR, CBC, ANEU, RFP, ADIFF #### [address] [address] Urea nitrogen [Mass/Vol] 41.0 mg/dL High 8.0-22.0 [facility] ([place]) Comment on above: Performed By: #### M ORPH, GFR, CBC, ANEU, RFP, ADIFF #### [address] [address] .Auto Diffon 01-27-2023 Basophil, Absolute 0.0 10 3/mcL Normal 0.0-0.3 [facility] ([place]) Comment on above: Performed By: #### M ORPH, GFR, CBC, ANEU, RFP, ADIFF #### [address] [address] Basophils/100 WBC (Bld) 0.8 % Normal 0.0-2.5 [facility] ([place]) Comment on above: Performed By: #### M ORPH, GFR, CBC, ANEU, RFP, ADIFF #### [address] [address] Eosinophil, Absolute 0.2 10 3/mcL Normal 0.0-0.7 [facility] ([place]) Comment on above: Performed By: #### M ORPH, GFR, CBC, ANEU, RFP, ADIFF #### [address] [address] Eosinophils/100 WBC (Bld) 3.5 % Normal 0.0-6.0 [facility] ([place]) Comment on above: Performed By: #### M ORPH, GFR, CBC, ANEU, RFP, ADIFF #### [address] [address] Lymphocyte, Absolute 0.8 10 3/mcL Low 0.9-4.3 [facility] ([place]) Comment on above: Performed By: #### M ORPH, GFR, CBC, ANEU, RFP, ADIFF #### [address] [address] Lymphocytes/100 WBC (Bld) 18.2 % Low 20.0-40.0 [facility] ([place]) Comment on above: Performed By: #### M ORPH, GFR, CBC, ANEU, RFP, ADIFF #### [address] [address] Monocyte, Absolute 0.4 10 3/mcL Normal 0.1-1.4 [facility] ([place]) Comment on above: Performed By: #### M ORPH, GFR, CBC, ANEU, RFP, ADIFF #### [address] [address] Monocytes/100 WBC (Bld) 9.8 % Normal 2.0-13.0 [facility] ([place]) Comment on above: Performed By: #### M ORPH, GFR, CBC, ANEU, RFP, ADIFF #### [address] [address] Neutrophils/100 WBC (Bld) 67.7 % Normal 50.0-75.0 [facility] ([place]) Comment on above: Performed By: #### M ORPH, GFR, CBC, ANEU, RFP, ADIFF #### [address] [address] .GFRon 01-27-2023 GFR >60 Normal [facility] ([place]) Comment on above: Result Comment: GFR Population mean for , Non- Americans Ages 20-29 = 116 mL/min/1.73 sq.m. Ages 30-39 = 107 mL/min/1.73 sq.m. Ages 40-49 = 99 mL/min/1.73 sq.m. Ages 50-59 = 93 mL/min/1.73 sq.m. Ages 60-69 = 85 mL/min/1.73 sq.m. Ages 70+ = 75 mL/min/1.73 sq.m. Chronic Kidney Disease: Less than 60 mL/min/1.73 square meters End Stage Renal Disease: Less than 15 mL/min/1.73 square meters Performed By: #### M ORPH, GFR, CBC, ANEU, RFP, ADIFF #### [address] [address] GFR Non- 51 ml/min/1.73sqm Normal [facility] ([place]) Comment on above: Result Comment: GFR Population mean for , Non- Americans Ages 20-29 = 116 mL/min/1.73 sq.m. Ages 30-39 = 107 mL/min/1.73 sq.m. Ages 40-49 = 99 mL/min/1.73 sq.m. Ages 50-59 = 93 mL/min/1.73 sq.m. Ages 60-69 = 85 mL/min/1.73 sq.m. Ages 70+ = 75 mL/min/1.73 sq.m. Chronic Kidney Disease: Less than 60 mL/min/1.73 square meters End Stage Renal Disease: Less than 15 mL/min/1.73 square meters Performed By: #### M ORPH, GFR, CBC, ANEU, RFP, ADIFF #### [address] [address] .NEUABSon 01-27-2023 Neutrophil, Absolute 3.0 10 3/mcL Normal 2.3-8.1 [facility] ([place]) Comment on above: Performed By: #### M ORPH, GFR, CBC, ANEU, RFP, ADIFF #### [address] [address] CBCon 01-27-2023 Erythrocyte distribution width (RBC) [Ratio] 14.6 % Normal 11.5-15.5 [facility] ([place]) Comment on above: Performed By: #### M ORPH, GFR, CBC, ANEU, RFP, ADIFF #### [place] [address] Hematocrit (Bld) [Volume fraction] 27.6 % Low 40.0-52.0 [facility] ([place]) Comment on above: Performed By: #### M ORPH, GFR, CBC, ANEU, RFP, ADIFF #### [place] [address] Hgb 9.7 G/dL Low 13.0-17.5 [facility] ([place]) Comment on above: Performed By: #### M ORPH, GFR, CBC, ANEU, RFP, ADIFF #### [place] [address] MCH (RBC) [Entitic mass] 31.2 pg Normal 27.0-33.0 [facility] ([place]) Comment on above: Performed By: #### M ORPH, GFR, CBC, ANEU, RFP, ADIFF #### [place] [address] MCHC 35.2 G/dL Normal 32.0-36.0 [facility] ([place]) Comment on above: Performed By: #### M ORPH, GFR, CBC, ANEU, RFP, ADIFF #### [place] [address] MCV (RBC) [Entitic vol] 88.5 fL Normal 81.0-100.0 [facility] ([place]) Comment on above: Performed By: #### M ORPH, GFR, CBC, ANEU, RFP, ADIFF #### [place] [address] Platelet 168 10 3/mcL Normal 150-450 [facility] ([place]) Comment on above: Performed By: #### M ORPH, GFR, CBC, ANEU, RFP, ADIFF #### [place] [address] Platelet mean volume (Bld) [Entitic vol] 8.2 fL Normal 6.4-10.5 [facility] ([place]) Comment on above: Performed By: #### M ORPH, GFR, CBC, ANEU, RFP, ADIFF #### [address] [address] RBC 3.12 10 6/mcL Low 4.50-6.00 [facility] ([place]) Comment on above: Performed By: #### M ORPH, GFR, CBC, ANEU, RFP, ADIFF #### [address] [address] WBC 4.4 10 3/mcL Low 4.5-10.8 [facility] ([place]) Comment on above: Performed By: #### M ORPH, GFR, CBC, ANEU, RFP, ADIFF #### [place] [address] CRURon 01-27-2023 U Creatinine 27.6 mg/dL Normal [facility] ([place]) Comment on above: Performed By: #### M ORPH, GFR, CBC, ANEU, RFP, ADIFF #### [place] [address] PRURon 01-27-2023 U Protein 42.1 mg/dL Normal [facility] ([place]) Comment on above: Performed By: #### M ORPH, GFR, CBC, ANEU, RFP, ADIFF #### [place] [address] PTHon 01-27-2023 PTH, Intact 51.6 pg/mL Normal 18.5-88.0 [facility] ([place]) Comment on above: Performed By: #### M ORPH, GFR, CBC, ANEU, RFP, ADIFF #### [place] [address] RFPon 01-27-2023 Albumin Level 4.0 G/dL Normal 3.2-4.8 [facility] ([place]) Comment on above: Performed By: #### M ORPH, GFR, CBC, ANEU, RFP, ADIFF #### [place] [address] BUN/Creatinine Ratio 30.4 ratio High 10.0-22.0 [facility] ([place]) Comment on above: Performed By: #### M ORPH, GFR, CBC, ANEU, RFP, ADIFF #### [place] [id number] Calcium [Mass/Vol] 8.9 mg/dL Normal 8.7-10.4 [facility] ([place]) Comment on above: Performed By: #### M ORPH, GFR, CBC, ANEU, RFP, ADIFF #### [address] [address] Chloride [Moles/Vol] 105 mmol/L Normal 98-110 [facility] ([place]) Comment on above: Performed By: #### M ORPH, GFR, CBC, ANEU, RFP, ADIFF #### [address] [address] CO2 [Moles/Vol] 25 mmol/L Normal 22-32 [facility] ([place]) Comment on above: Performed By: #### M ORPH, GFR, CBC, ANEU, RFP, ADIFF #### [address] [address] Creatinine [Mass/Vol] 1.38 mg/dL Normal 0.60-1.40 [facility] ([place]) Comment on above: Performed By: #### M ORPH, GFR, CBC, ANEU, RFP, ADIFF #### [address] [address] Electrolyte Balance 7.0 mEq/L Normal 4.0-15.0 [facility] ([place]) Comment on above: Performed By: #### M ORPH, GFR, CBC, ANEU, RFP, ADIFF #### [address] [address] Glucose [Mass/Vol] 103 mg/dL Normal 82-115 [facility] ([place]) Comment on above: Performed By: #### M ORPH, GFR, CBC, ANEU, RFP, ADIFF #### [address] [address] Phosphate [Mass/Vol] 4.7 mg/dL Normal 2.4-5.1 [facility] ([place]) Comment on above: Result Comment: No te - New Reference Range in effect 20 Performed By: #### M ORPH, GFR, CBC, ANEU, RFP, ADIFF #### [address] [address] Potassium [Moles/Vol] 4.7 mmol/L Normal 3.5-5.0 [facility] ([place]) Comment on above: Performed By: #### M ORPH, GFR, CBC, ANEU, RFP, ADIFF #### [address] [address] Sodium [Moles/Vol] 137 mmol/L Normal 136-145 [facility] ([place]) Comment on above: Performed By: #### M ORPH, GFR, CBC, ANEU, RFP, ADIFF #### [address] [address] Urea nitrogen [Mass/Vol] 42.0 mg/dL High 8.0-22.0 [facility] ([place]) Comment on above: Performed By: #### M ORPH, GFR, CBC, ANEU, RFP, ADIFF #### [address] [address] .GFRon 01-05-2023 GFR 50 ml/min/1.73sqm Normal [facility] ([place]) Comment on above: Result Comment: GFR Population mean for , Non- Americans Ages 20-29 = 116 mL/min/1.73 sq.m. Ages 30-39 = 107 mL/min/1.73 sq.m. Ages 40-49 = 99 mL/min/1.73 sq.m. Ages 50-59 = 93 mL/min/1.73 sq.m. Ages 60-69 = 85 mL/min/1.73 sq.m. Ages 70+ = 75 mL/min/1.73 sq.m. Chronic Kidney Disease: Less than 60 mL/min/1.73 square meters End Stage Renal Disease: Less than 15 mL/min/1.73 square meters Performed By: #### M ORPH, GFR, CBC, ANEU, RFP, ADIFF #### [address] [address] GFR Non- 41 ml/min/1.73sqm Normal [facility] ([place]) Comment on above: Result Comment: GFR Population mean for , Non- Americans Ages 20-29 = 116 mL/min/1.73 sq.m. Ages 30-39 = 107 mL/min/1.73 sq.m. Ages 40-49 = 99 mL/min/1.73 sq.m. Ages 50-59 = 93 mL/min/1.73 sq.m. Ages 60-69 = 85 mL/min/1.73 sq.m. Ages 70+ = 75 mL/min/1.73 sq.m. Chronic Kidney Disease: Less than 60 mL/min/1.73 square meters End Stage Renal Disease: Less than 15 mL/min/1.73 square meters Performed By: #### M ORPH, GFR, CBC, ANEU, RFP, ADIFF #### [address] [address] BMPon 01-05-2023 BUN/Creatinine Ratio 31.3 ratio High 10.0-22.0 [facility] ([place]) Comment on above: Performed By: #### M ORPH, GFR, CBC, ANEU, RFP, ADIFF #### [address] [address] Calcium [Mass/Vol] 9.3 mg/dL Normal 8.7-10.4 [facility] ([place]) Comment on above: Performed By: #### M ORPH, GFR, CBC, ANEU, RFP, ADIFF #### [address] [address] Chloride [Moles/Vol] 105 mmol/L Normal 98-110 [facility] ([place]) Comment on above: Performed By: #### M ORPH, GFR, CBC, ANEU, RFP, ADIFF #### [address] [address] CO2 [Moles/Vol] 26 mmol/L Normal 22-32 [facility] ([place]) Comment on above: Performed By: #### M ORPH, GFR, CBC, ANEU, RFP, ADIFF #### [address] [address] Creatinine [Mass/Vol] 1.66 mg/dL High 0.60-1.40 [facility] ([place]) Comment on above: Performed By: #### M ORPH, GFR, CBC, ANEU, RFP, ADIFF #### [address] [address] Electrolyte Balance 6.0 mEq/L Normal 4.0-15.0 [facility] ([place]) Comment on above: Performed By: #### M ORPH, GFR, CBC, ANEU, RFP, ADIFF #### [address] [address] Glucose [Mass/Vol] 108 mg/dL Normal 82-115 [facility] ([place]) Comment on above: Performed By: #### M ORPH, GFR, CBC, ANEU, RFP, ADIFF #### [address] [address] Potassium [Moles/Vol] 5.2 mmol/L High 3.5-5.0 [facility] ([place]) Comment on above: Result Comment: Spec imen slightly hemolyzed. Performed By: #### M ORPH, GFR, CBC, ANEU, RFP, ADIFF #### [place] [id number] Sodium [Moles/Vol] 137 mmol/L Normal 136-145 [facility] ([place]) Comment on above: Performed By: #### M ORPH, GFR, CBC, ANEU, RFP, ADIFF #### [place] [id number] Urea nitrogen [Mass/Vol] 52.0 mg/dL High 8.0-22.0 [facility] ([place]) Comment on above: Performed By: #### M ORPH, GFR, CBC, ANEU, RFP, ADIFF #### [address] [address] CNOVon 12-11-2022 CNOV Office Visit (CAUPDO ) CAROLYN ABBOTT ([id number]) 1950 M [place] Date Time Provider Department 12/11/22 9:20 AM MILENA HERMAN During your visit today, we recorded the following information about you: Pulse Blood pressure 62/minute 152/84 Milena Herman APRN.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 12/11/2022 1:50 PM Signed [facility] Department of Cardiology Referring Provider: No ref. provider found Date: December 11, 2022 Chief Complaint: Hypertension Subjective: Carolyn Abbott is a 72 year old, established male who presents hypertension. Patient also has known chronic diastolic heart failure. Patient has checked his blood pressure at home reports that it runs from 130-150. Patient denies any headaches, dizziness, or syncopal episodes. Patient denies any chest pain or chest discomfort. ALLERGIES Allergen Reactions Clindamycin Swelling Sulfa (Sulfonamide * Unknown PAST MEDICAL HISTORY: PAST MEDICAL HISTORY Diagnosis Date Abnormal renal ultrasound 05/26/2022 No evidence of hemodynamically significant arterial stenosis, involving the right renal artery. Consistent with less than 60% stenosis. No evidence of hemodynamically significant arterial stenosis, involving the left renal artery. Consistent with less than 60% stenosis. Aortic stenosis 2018 Bilateral leg pain foward emg results to neuro when received; etiology unclear, but reassuring that activity actually improved the issue; possible differentials include funcitonal magnesium deficiency from his chronic use of diuretic therapy, soreness from uncontrolled leg movements that night, less likely radiculopathy/spinal stenosis- not unknown medication side effect and no med change. 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 History of echocardiogram 05/28/2022 EF 55%. Mild concentric left ventricular hypertrophy. Stage 1 diastolic dysfunction. No regional wall motion abnormalities noted. History of echocardiogram 11/26/2020 EF 65%. Normal LV size. Left ventricular systolic function is normal. Mild-moderate mitral annular calcification. Mild-moderate eccentric mitral valve insufficiency. Mild focal aortic valve calcification. Mild aortic stenosis. History of echocardiogram 01/27/2020 EF 60%. Normal LV size. Left ventricular systolic function is normal. Moderate focal aortic valve calcification. Stage 1 diastolic dysfunction. Pulmonary artery systolic pressure is 20 mmHg. History of echocardiogram 12/24/2015 EF 55%. Normal LV size. Mild concentric left ventricular hypertrophy. Left ventricular systolic function is normal. Transmitral and pulmonary venous doppler flow suggestive of impaired relaxation of left ventricle. Mild (1+) tricuspid valve insufficiency. History of prostate cancer 1980 Diagnosed in mid 1980s, with some adenopathy in the abdomen Hypogonadism in male IFG (impaired fasting glucose) Joint pain Lumbar spinal stenosis Multiple acquired skin tags PATRICIO (obstructive sleep apnea) Parkinson's disease (HCC) 2017 Polycystic kidney disease Polyneuropathy lower extremities, very mild, NCS 08/2021 Respiratory symptoms Valvular heart disease 2017 Vitamin D deficiency Vitreous degeneration PAST SURGICAL HISTORY Procedure Laterality Date ULTRASOUND GUIDANCE FOR VENOUS ABLATION FAMILY HISTORY Problem Relation Age of Onset Diabetes Mother Hypertension Mother Diabetes Father Hypertension Father Heart Attack Father Heart disease Father Diabetes Sister Hypertension Sister Cancer Brother Heart disease Brother Hypertension Brother No Known Problems Paternal Grandfather SOCIAL HISTORY: Tobacco Use: Never Alcohol Use: Not Currently Drug Use: Never Employer And Job Title: None on file Years Of Education Completed: Not specified Marital Status: MEDICATIONS: Current Outpatient Medications Medication Sig hydroCHLOROthiazide 12.5 mg capsule Take 12.5 mg by mouth once daily. Ferrous Sulfate (SLOW FE) 142 mg (45 mg iron) TbER once daily. levocetirizine 5 mg tablet Take 5 mg by mouth daily at bedtime. cyanocobalamin (VITAMIN B-12) 1,000 mcg tab Take 1,000 mcg by mouth once daily. amLODIPine (NORVASC) 10 mg tablet Take 1 tablet by mouth once daily. carvedilol (COREG) 25 mg tablet Take 1 tablet by mouth twice daily with meals. primidone (MYSOLINE) 50 mg tablet Take 100 mg by mouth twice daily. aspirin, enteric coated (ASPIRIN, ENTERIC COATED) 81 mg EC tablet Take 81 mg by mouth once daily. kasbonwcp-fkljnbow-ipx acapone (STALEVO (more content not included)... Normal [facility] [place] CNOVon 11-13-2022 CNOV Office Visit (CAUPDO ) CAROLYN ABBOTT ([id number]) 1950 M [place] Date Time Provider Department 11/13/22 10:40 AM MILENA HERMAN During your visit today, we recorded the following information about you: Pulse Blood pressure Weight Height 66/minute 152/82 106.6 kg 1.74 m Milena Herman APRN.CNP 11/14/2022 9:19 AM Signed [facility] Department of Cardiology Referring Provider: No ref. provider found Date: November 13, 2022 Chief Complaint: Hypertension Subjective: Carolyn Abbott is a 71 year old, established male who presents hypertension. Patient denies any headaches, dizziness, or syncopal episodes. Patient denies any chest pain or chest discomfort. ALLERGIES Allergen Reactions Clindamycin Swelling Sulfa (Sulfonamide * Unknown PAST MEDICAL HISTORY: PAST MEDICAL HISTORY Diagnosis Date Abnormal renal ultrasound 05/26/2022 No evidence of hemodynamically significant arterial stenosis, involving the right renal artery. Consistent with less than 60% stenosis. No evidence of hemodynamically significant arterial stenosis, involving the left renal artery. Consistent with less than 60% stenosis. Aortic stenosis 2019 Bilateral leg pain foward emg results to neuro when received; etiology unclear, but reassuring that activity actually improved the issue; possible differentials include funcitonal magnesium deficiency from his chronic use of diuretic therapy, soreness from uncontrolled leg movements that night, less likely radiculopathy/spinal stenosis- not unknown medication side effect and no med change. 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 History of echocardiogram 05/28/2022 EF 55%. Mild concentric left ventricular hypertrophy. Stage 1 diastolic dysfunction. No regional wall motion abnormalities noted. History of echocardiogram 11/26/2020 EF 65%. Normal LV size. Left ventricular systolic function is normal. Mild-moderate mitral annular calcification. Mild-moderate eccentric mitral valve insufficiency. Mild focal aortic valve calcification. Mild aortic stenosis. History of echocardiogram 01/27/2020 EF 60%. Normal LV size. Left ventricular systolic function is normal. Moderate focal aortic valve calcification. Stage 1 diastolic dysfunction. Pulmonary artery systolic pressure is 20 mmHg. History of echocardiogram 12/24/2015 EF 55%. Normal LV size. Mild concentric left ventricular hypertrophy. Left ventricular systolic function is normal. Transmitral and pulmonary venous doppler flow suggestive of impaired relaxation of left ventricle. Mild (1+) tricuspid valve insufficiency. History of prostate cancer 1980 Diagnosed in mid 1980s, with some adenopathy in the abdomen Hypogonadism in male IFG (impaired fasting glucose) Joint pain Lumbar spinal stenosis Multiple acquired skin tags PATRICIO (obstructive sleep apnea) Parkinson's disease (HCC) 2017 Polycystic kidney disease Polyneuropathy lower extremities, very mild, NCS 08/2021 Respiratory symptoms Valvular heart disease 2017 Vitamin D deficiency Vitreous degeneration PAST SURGICAL HISTORY Procedure Laterality Date ULTRASOUND GUIDANCE FOR VENOUS ABLATION FAMILY HISTORY Problem Relation Age of Onset Diabetes Mother Hypertension Mother Diabetes Father Hypertension Father Heart Attack Father Heart disease Father Diabetes Sister Hypertension Sister Cancer Brother Heart disease Brother Hypertension Brother No Known Problems Paternal Grandfather SOCIAL HISTORY: Tobacco Use: Never Alcohol Use: Not Currently Drug Use: Never Employer And Job Title: None on file Years Of Education Completed: Not specified Marital Status: MEDICATIONS: Current Outpatient Medications Medication Sig levocetirizine 5 mg tablet Take 5 mg by mouth daily at bedtime. cyanocobalamin (VITAMIN B-12) 1,000 mcg tab Take 1,000 mcg by mouth once daily. amLODIPine (NORVASC) 10 mg tablet Take 1 tablet by mouth once daily. carvedilol (COREG) 25 mg tablet Take 1 tablet by mouth twice daily with meals. primidone (MYSOLINE) 50 mg tablet Take 100 mg by mouth twice daily. aspirin, enteric coated (ASPIRIN, ENTERIC COATED) 81 mg EC tablet Take 81 mg by mouth once daily. guzpqheig-frvdlvth-eqf acapone (STALEVO 200) 50-200-200 mg per tablet Take 1 tablet by mouth three times daily. cloNIDine TTS (CATAPRES-TTS) 0.1 mg/24 hr once daily as needed. hydrALAZINE (APRESOLINE) 100 mg tablet Take 100 mg by mouth three times daily. MAGNESIUM GLUCONATE ORAL (more content not included)... Normal [facility] [place] CNOVon 10-16-2022 CNOV Office Visit (CAUPDO ) CAROLYN ABBOTT ([id number]) 1950 M [place] Date Time Provider Department 10/16/22 1:00 PM MILENA HERMAN During your visit today, we recorded the following information about you: Pulse Blood pressure Weight Height 64/minute 140/92 108.4 kg 1.74 m Milena Herman APRN.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 10/17/2022 12:40 PM Addendum [facility] Department of Cardiology Referring Provider: No ref. provider found Date: October 16, 2022 Chief Complaint: Hypertension and CHF Subjective: Carolyn Abbott is a 71 year old male who presents as a new patient establishing for hypertension and CHF. Patient denies any headaches, dizziness, or syncopal episodes. Patient denies any chest pain or chest discomfort. Patient denies any shortness of breath. Patient has history of chronic diastolic heart failure, mild coronary artery disease, PAD, Parkinson's disease, chronic kidney disease stage III, testicular cancer, and vitamin D deficiency. ALLERGIES Allergen Reactions Clindamycin Swelling Sulfa (Sulfonamide * Unknown PAST MEDICAL HISTORY: PAST MEDICAL HISTORY Diagnosis Date Abnormal renal ultrasound 05/26/2022 No evidence of hemodynamically significant arterial stenosis, involving the right renal artery. Consistent with less than 60% stenosis. No evidence of hemodynamically significant arterial stenosis, involving the left renal artery. Consistent with less than 60% stenosis. Aortic stenosis 2019 Bilateral leg pain foward emg results to neuro when received; etiology unclear, but reassuring that activity actually improved the issue; possible differentials include funcitonal magnesium deficiency from his chronic use of diuretic therapy, soreness from uncontrolled leg movements that night, less likely radiculopathy/spinal stenosis- not unknown medication side effect and no med change. 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 History of echocardiogram 05/28/2022 EF 55%. Mild concentric left ventricular hypertrophy. Stage 1 diastolic dysfunction. No regional wall motion abnormalities noted. History of echocardiogram 11/26/2020 EF 65%. Normal LV size. Left ventricular systolic function is normal. Mild-moderate mitral annular calcification. Mild-moderate eccentric mitral valve insufficiency. Mild focal aortic valve calcification. Mild aortic stenosis. History of echocardiogram 01/27/2020 EF 60%. Normal LV size. Left ventricular systolic function is normal. Moderate focal aortic valve calcification. Stage 1 diastolic dysfunction. Pulmonary artery systolic pressure is 20 mmHg. History of echocardiogram 12/24/2015 EF 55%. Normal LV size. Mild concentric left ventricular hypertrophy. Left ventricular systolic function is normal. Transmitral and pulmonary venous doppler flow suggestive of impaired relaxation of left ventricle. Mild (1+) tricuspid valve insufficiency. History of prostate cancer 1980 Diagnosed in mid , with some adenopathy in the abdomen Hypogonadism in male IFG (impaired fasting glucose) Joint pain Lumbar spinal stenosis Multiple acquired skin tags PATRICIO (obstructive sleep apnea) Parkinson's disease (HCC) 2017 Polycystic kidney disease Polyneuropathy lower extremities, very mild, NCS 08/2021 Respiratory symptoms Valvular heart disease 2017 Vitamin D deficiency Vitreous degeneration PAST SURGICAL HISTORY Procedure Laterality Date ULTRASOUND GUIDANCE FOR VENOUS ABLATION FAMILY HISTORY Problem Relation Age of Onset Diabetes Mother Hypertension Mother Diabetes Father Hypertension Father Heart Attack Father Heart disease Father Diabetes Sister Hypertension Sister Cancer Brother Heart disease Brother Hypertension Brother No Known Problems Paternal Grandfather SOCIAL HISTORY: Tobacco Use: Never Alcohol Use: Not Currently Drug Use: Never Employer And Job Title: None on file Years Of Education Completed: Not specified Marital Status: MEDICATIONS: Current Outpatient Medications Medication Sig primidone (MYSOLINE) 50 mg tablet Take 100 mg by mouth twice daily. amLODIPine (NORVASC) 10 mg tablet Take 10 mg by mouth once daily. aspirin, enteric coated (ASPIRIN, ENTERIC COATED) 81 mg EC tablet Take 81 mg by mouth once daily. rfxtnfhpy-tyriesso-pov acapone (STALEVO 200) 50-200-200 mg per tablet Take 1 tablet by mouth three times daily. carvedilol (COREG) 25 mg tablet Take 25 mg by mouth twice daily with meals. cloNIDine TTS (CATAPRES-TTS) 0.1 mg/24 hr once (more content not included)... Normal [facility] [place] ECG COMPLETEon 10-16-2022 ECG COMPLETE Ventricular Rate : 6 4 BPM Atrial Rate : 64 BPM P-R Interval : 208 ms QRS Duration : 78 ms Q-T Interval : 438 ms QTC Calculation(Bazett) : 451 ms Calculated P [place] : 30 degrees Calculated R [place] : 65 degrees Calculated T [place] : 31 degrees NORMAL SINUS RHYTHM NORMAL ECG NO PREVIOUS ECGS AVAILABLE Confirmed by MILTON BASILIO DO ([id number]) on 10/26/2022 8:20:55 AM NAME : CAROLYN ABBOTT PID : [id number] : 1950 Gender : Male Race : ORD : [id number] Procedure Date : Oct 16 2022 12:45:40 Edit Date : Oct 26 2022 08:20:59 Diagnosis: NORMAL SINUS RHYTHM NORMAL ECG NO PREVIOUS ECGS AVAILABLE Confirmed by MILTON BASILIO DO ([id number]) on 10/26/2022 8:20:55 AM Test Reason : Location : 606 : [facility] Overread By : MILTON BASILIO DO Edited By : MILTON BASILIO DO Referred By : MILENA HERMAN Acquired by : [id number], Normal [facility] [place] LABORATORYOrdered By: SYSTEM SYSTEM on 05-27-2022 Calcium [Mass/Vol] 9.0 mg/dL Invalid Interpretation Code 8.7 - 10.4 mg/dL AH ADM SS Chloride [Moles/Vol] 102 mmol/L Invalid Interpretation Code 98 - 110 mEq/L AH ADM SS CO2 [Moles/Vol] 25 mmol/L Invalid Interpretation Code 22 - 32 mEq/L AH ADM SS Creatinine [Mass/Vol] 2.27 mg/dL Invalid Interpretation Code 0.60 - 1.40 mg/dL AH ADM SS Electrolyte Balance 6.0 mEq/L Invalid Interpretation Code 4.0 - 15.0 mEq/L AH ADM SS GFR/1.73 sq M.predicted among blacks MDRD (S/P/Bld) [Vol rate/Area] 35 ml/min/1.73sqm Invalid Interpretation Code AH ADM SS GFR/1.73 sq M.predicted among non-blacks MDRD (S/P/Bld) [Vol rate/Area] 29 ml/min/1.73sqm Invalid Interpretation Code ADM SS Glucose [Mass/Vol] 98 mg/dL Invalid Interpretation Code 82 - 115 mg/dL ADM SS Potassium [Moles/Vol] 5.0 mmol/L Invalid Interpretation Code 3.5 - 5.0 mEq/L ADM SS Comment on above: Result Comment: Spec imen slightly hemolyzed. Sodium [Moles/Vol] 133 mmol/L Invalid Interpretation Code 136 - 145 mEq/L ADM SS Urea nitrogen [Mass/Vol] 51.0 mg/dL Invalid Interpretation Code 8.0 - 22.0 mg/dL ADM SS Urea nitrogen/Creatinine [Mass ratio] 22.5 ratio Invalid Interpretation Code 10.0 - 22.0 ratio ADM SS LABORATORYOrdered By: SYSTEM SYSTEM on 05-26-2022 Basophils (Bld) [#/Vol] 0.1 103/mcL Invalid Interpretation Code 0.0 - 0.3 10^3/mcL Workflow SS Basophils/100 WBC (Bld) 1.0 % Invalid Interpretation Code 0.0 - 2.5 % Workflow SS Calcium [Mass/Vol] 9.2 mg/dL Invalid Interpretation Code 8.7 - 10.4 mg/dL ADM SS Chloride [Moles/Vol] 104 mmol/L Invalid Interpretation Code 98 - 110 mEq/L ADM SS CO2 [Moles/Vol] 22 mmol/L Invalid Interpretation Code 22 - 32 mEq/L ADM SS Creatinine [Mass/Vol] 2.29 mg/dL Invalid Interpretation Code 0.60 - 1.40 mg/dL ADM SS Electrolyte Balance 9.0 mEq/L Invalid Interpretation Code 4.0 - 15.0 mEq/L ADM SS Eosinophils (Bld) [#/Vol] 0.1 103/mcL Invalid Interpretation Code 0.0 - 0.7 10^3/mcL Workflow SS Eosinophils/100 WBC (Bld) 2.3 % Invalid Interpretation Code 0.0 - 6.0 % Workflow SS Erythrocyte distribution width (RBC) [Ratio] 13.6 % Invalid Interpretation Code 11.5 - 15.5 % AH Workflow SS GFR/1.73 sq M.predicted among blacks MDRD (S/P/Bld) [Vol rate/Area] 34 ml/min/1.73sqm Invalid Interpretation Code ADM SS GFR/1.73 sq M.predicted among non-blacks MDRD (S/P/Bld) [Vol rate/Area] 28 ml/min/1.73sqm Invalid Interpretation Code AH ADM SS Glucose [Mass/Vol] 111 mg/dL Invalid Interpretation Code 82 - 115 mg/dL AH ADM SS Hematocrit (Bld) [Volume fraction] 36.3 % Invalid Interpretation Code 40.0 - 52.0 % AH Workflow SS Hemoglobin (Bld) [Mass/Vol] 12.6 G/dL Invalid Interpretation Code 13.0 - 17.5 G/dL AH Workflow SS Lymphocytes (Bld) [#/Vol] 1.2 103/mcL Invalid Interpretation Code 0.9 - 4.3 10^3/mcL AH Workflow SS Lymphocytes/100 WBC (Bld) 23.1 % Invalid Interpretation Code 20.0 - 40.0 % AH Workflow SS MCH (RBC) [Entitic mass] 31.5 pg Invalid Interpretation Code 27.0 - 33.0 pg AH Workflow SS MCHC 34.8 G/dL Invalid Interpretation Code 32.0 - 36.0 G/dL AH Workflow SS MCV (RBC) [Entitic vol] 90.5 fL Invalid Interpretation Code 81.0 - 100.0 fL AH Workflow SS Monocytes (Bld) [#/Vol] 0.5 103/mcL Invalid Interpretation Code 0.1 - 1.4 10^3/mcL AH Workflow SS Monocytes/100 WBC (Bld) 10.4 % Invalid Interpretation Code 2.0 - 13.0 % AH Workflow SS Neutrophils (Bld) [#/Vol] 3.3 103/mcL Invalid Interpretation Code 2.3 - 8.1 10^3/mcL AH Workflow SS Neutrophils/100 WBC (Bld) 63.2 % Invalid Interpretation Code 50.0 - 75.0 % AH Workflow SS Platelet mean volume (Bld) [Entitic vol] 8.6 fL Invalid Interpretation Code 6.4 - 10.5 fL AH Workflow SS Platelets (Bld) [#/Vol] 157 103/mcL Invalid Interpretation Code 150 - 450 10^3/mcL AH Workflow SS Potassium [Moles/Vol] 4.8 mmol/L Invalid Interpretation Code 3.5 - 5.0 mEq/L AH ADM SS RBC (Bld) [#/Vol] 4.01 106/mcL Invalid Interpretation Code 4.50 - 6.00 10^6/mcL AH Workflow SS Sodium [Moles/Vol] 135 mmol/L Invalid Interpretation Code 136 - 145 mEq/L ADM SS Urea nitrogen [Mass/Vol] 41.0 mg/dL Invalid Interpretation Code 8.0 - 22.0 mg/dL ADM SS Urea nitrogen/Creatinine [Mass ratio] 17.9 ratio Invalid Interpretation Code 10.0 - 22.0 ratio ADM SS WBC (Bld) [#/Vol] 5.2 103/mcL Invalid Interpretation Code 4.5 - 10.8 10^3/mcL Workflow SS LABORATORYOrdered By: SYSTEM SYSTEM on 05-24-2022 Basophils (Bld) [#/Vol] 0.1 103/mcL Invalid Interpretation Code 0.0 - 0.3 10^3/mcL Workflow SS Basophils/100 WBC (Bld) 0.8 % Invalid Interpretation Code 0.0 - 2.5 % Workflow SS Calcium [Mass/Vol] 9.8 mg/dL Invalid Interpretation Code 8.7 - 10.4 mg/dL ADM SS Chloride [Moles/Vol] 106 mmol/L Invalid Interpretation Code 98 - 110 mEq/L ADM SS CO2 [Moles/Vol] 27 mmol/L Invalid Interpretation Code 22 - 32 mEq/L ADM SS Creatinine [Mass/Vol] 1.51 mg/dL Invalid Interpretation Code 0.60 - 1.40 mg/dL ADM SS Electrolyte Balance 5.0 mEq/L Invalid Interpretation Code 4.0 - 15.0 mEq/L ADM SS Eosinophils (Bld) [#/Vol] 0.1 103/mcL Invalid Interpretation Code 0.0 - 0.7 10^3/mcL Workflow SS Eosinophils/100 WBC (Bld) 1.2 % Invalid Interpretation Code 0.0 - 6.0 % Workflow SS Erythrocyte distribution width (RBC) [Ratio] 13.6 % Invalid Interpretation Code 11.5 - 15.5 % Workflow SS GFR/1.73 sq M.predicted among blacks MDRD (S/P/Bld) [Vol rate/Area] 55 ml/min/1.73sqm Invalid Interpretation Code ADM SS GFR/1.73 sq M.predicted among non-blacks MDRD (S/P/Bld) [Vol rate/Area] 46 ml/min/1.73sqm Invalid Interpretation Code ADM SS Glucose [Mass/Vol] 111 mg/dL Invalid Interpretation Code 82 - 115 mg/dL ADM SS Hematocrit (Bld) [Volume fraction] 37.8 % Invalid Interpretation Code 40.0 - 52.0 % AH Workflow SS Hemoglobin (Bld) [Mass/Vol] 13.1 G/dL Invalid Interpretation Code 13.0 - 17.5 G/dL AH Workflow SS Lymphocytes (Bld) [#/Vol] 1.0 103/mcL Invalid Interpretation Code 0.9 - 4.3 10^3/mcL AH Workflow SS Lymphocytes/100 WBC (Bld) 14.7 % Invalid Interpretation Code 20.0 - 40.0 % AH Workflow SS Magnesium [Mass/Vol] 1.7 mg/dL Invalid Interpretation Code 1.6 - 2.4 mg/dL ADM SS MCH (RBC) [Entitic mass] 30.9 pg Invalid Interpretation Code 27.0 - 33.0 pg AH Workflow SS MCHC 34.6 G/dL Invalid Interpretation Code 32.0 - 36.0 G/dL Workflow SS MCV (RBC) [Entitic vol] 89.4 fL Invalid Interpretation Code 81.0 - 100.0 fL Workflow SS Monocytes (Bld) [#/Vol] 0.4 103/mcL Invalid Interpretation Code 0.1 - 1.4 10^3/mcL Workflow SS Monocytes/100 WBC (Bld) 6.6 % Invalid Interpretation Code 2.0 - 13.0 % Workflow SS Neutrophils (Bld) [#/Vol] 5.0 103/mcL Invalid Interpretation Code 2.3 - 8.1 10^3/mcL Workflow SS Neutrophils/100 WBC (Bld) 76.7 % Invalid Interpretation Code 50.0 - 75.0 % Workflow SS Platelet mean volume (Bld) [Entitic vol] 8.4 fL Invalid Interpretation Code 6.4 - 10.5 fL Workflow SS Platelets (Bld) [#/Vol] 180 103/mcL Invalid Interpretation Code 150 - 450 10^3/mcL Workflow SS Potassium [Moles/Vol] 4.6 mmol/L Invalid Interpretation Code 3.5 - 5.0 mEq/L ADM SS Comment on above: Result Comment: Spec imen slightly hemolyzed. RBC (Bld) [#/Vol] 4.23 106/mcL Invalid Interpretation Code 4.50 - 6.00 10^6/mcL Workflow SS Sodium [Moles/Vol] 138 mmol/L Invalid Interpretation Code 136 - 145 mEq/L ADM SS Troponin I.cardiac DL <= 0.01 ng/mL [Mass/Vol] 6.21 ng/L Invalid Interpretation Code 0.00 - 54.00 ng/L ADM SS Urea nitrogen [Mass/Vol] 35.0 mg/dL Invalid Interpretation Code 8.0 - 22.0 mg/dL ADM SS Urea nitrogen/Creatinine [Mass ratio] 23.2 ratio Invalid Interpretation Code 10.0 - 22.0 ratio ADM SS WBC (Bld) [#/Vol] 6.5 103/mcL Invalid Interpretation Code 4.5 - 10.8 10^3/mcL Workflow SS Albumin BCP dye [Mass/Vol] 3.8 G/dL Invalid Interpretation Code 3.2 - 4.8 G/dL ADM SS Albumin/Globulin [Mass ratio] 1.4 {ratio} Invalid Interpretation Code 0.9 - 1.6 ratio ADM SS ALP [Catalytic activity/Vol] 74 U/L Invalid Interpretation Code 38 - 126 U/L ADM SS ALT No additional P-5'-P [Catalytic activity/Vol] U/L 1 Invalid Interpretation Code 12 - 55 U/L ADM SS AST [Catalytic activity/Vol] 21 U/L Invalid Interpretation Code 8 - 34 U/L ADM SS Basophils (Bld) [#/Vol] 0.0 103/mcL Invalid Interpretation Code 0.0 - 0.3 10^3/mcL Workflow SS Basophils/100 WBC (Bld) 0.8 % Invalid Interpretation Code 0.0 - 2.5 % AH Workflow SS Bilirubin [Mass/Vol] 0.30 mg/dL Invalid Interpretation Code 0.20 - 1.20 mg/dL ADM SS Eosinophils (Bld) [#/Vol] 0.1 103/mcL Invalid Interpretation Code 0.0 - 0.7 10^3/mcL Workflow SS Eosinophils/100 WBC (Bld) 2.0 % Invalid Interpretation Code 0.0 - 6.0 % Workflow SS Erythrocyte distribution width (RBC) [Ratio] 13.8 % Invalid Interpretation Code 11.5 - 15.5 % Workflow SS Globulin 2.7 G/dL Invalid Interpretation Code 1.5 - 3.8 G/dL ADM SS Hematocrit (Bld) [Volume fraction] 32.8 % Invalid Interpretation Code 40.0 - 52.0 % Workflow SS Hemoglobin (Bld) [Mass/Vol] 11.6 G/dL Invalid Interpretation Code 13.0 - 17.5 G/dL AH Workflow SS Lymphocytes (Bld) [#/Vol] 0.8 103/mcL Invalid Interpretation Code 0.9 - 4.3 10^3/mcL AH Workflow SS Lymphocytes/100 WBC (Bld) 14.1 % Invalid Interpretation Code 20.0 - 40.0 % AH Workflow SS MCH (RBC) [Entitic mass] 31.4 pg Invalid Interpretation Code 27.0 - 33.0 pg AH Workflow SS MCHC 35.2 G/dL Invalid Interpretation Code 32.0 - 36.0 G/dL AH Workflow SS MCV (RBC) [Entitic vol] 89.3 fL Invalid Interpretation Code 81.0 - 100.0 fL AH Workflow SS Monocyte distribution width Auto (Bld) [Entitic vol] 21.56 Invalid Interpretation Code 0.00 - 20.00 AH Workflow SS Comment on above: Result Comment: For adults in ED, MDW>20.0 may be associated with a higher risk of sepsis during the first 12hrs of hospital admission Monocytes (Bld) [#/Vol] 0.3 103/mcL Invalid Interpretation Code 0.1 - 1.4 10^3/mcL AH Workflow SS Monocytes/100 WBC (Bld) 5.9 % Invalid Interpretation Code 2.0 - 13.0 % AH Workflow SS Neutrophils (Bld) [#/Vol] 4.2 103/mcL Invalid Interpretation Code 2.3 - 8.1 10^3/mcL AH Workflow SS Neutrophils/100 WBC (Bld) 77.2 % Invalid Interpretation Code 50.0 - 75.0 % AH Workflow SS Platelet mean volume (Bld) [Entitic vol] 8.4 fL Invalid Interpretation Code 6.4 - 10.5 fL AH Workflow SS Platelets (Bld) [#/Vol] 149 103/mcL Invalid Interpretation Code 150 - 450 10^3/mcL AH Workflow SS Protein [Mass/Vol] 6.5 G/dL Invalid Interpretation Code 5.7 - 8.2 G/dL AH ADM SS RBC (Bld) [#/Vol] 3.68 106/mcL Invalid Interpretation Code 4.50 - 6.00 10^6/mcL AH Workflow SS Troponin I.cardiac DL <= 0.01 ng/mL [Mass/Vol] 5.28 ng/L Invalid Interpretation Code 0.00 - 54.00 ng/L ADM SS WBC (Bld) [#/Vol] 5.5 103/mcL Invalid Interpretation Code 4.5 - 10.8 10^3/mcL Workflow SS LABORATORYOrdered By: Barney Sánchez on 05-24-2022 Blood Glucose Testing Reason Routine (05/24/22 9:50 PM) [facility] Glucose [Mass/Vol] 118 mg/dL Invalid Interpretation Code 82 - 115 mg/dL [facility] LABORATORYOrdered By: Abdias Lindo on 05-24-2022 Natriuretic peptide.B prohormone N-Terminal [Mass/Vol] 361 pg/mL Invalid Interpretation Code 0 - 900 pg/mL Auto Chem SS Office Visiton 12-16-2016 Dietary management education, guidance, and counseling (procedure) yes Invalid Interpretation Code [employer] Work Phone: Documentation of current medications (procedure) Done Invalid Interpretation Code [employer] Work Phone: Clinical 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 Left ventricular Ejection fraction 55 % Invalid Interpretation Code [employer] Work Phone: Lab Report: Thyroid Stim Hor omero (TSH)on 02-18-2016 Thyroid stimulating hormone (TSH) 2.44 u[iU]/mL Invalid Interpretation Code 0.358-3.74 [employer] Work Phone: Office Visit: Establish Care on 02-18-2016 Tobacco smoking status NHIS Never Invalid Interpretation Code [employer] Work Phone: [phone] Tobacco use [facility] Never smoker Invalid Interpretation Code [employer] Work Phone: Office Visiton 06-20-2015 cardiac risk group B Invalid Interpretation Code [employer] Work Phone: General cardiovascular disease 10Y risk [#] [place] Not enough information Invalid Interpretation Code [employer] Work Phone: Replaced Document: [facility] E CG Observationson 06-20-2015 electrocardiogram interpretation Sinus Rhythm Low voltage in precordial leads. -Old inferior infarct. ABNORMAL Invalid Interpretation Code [employer] Work Phone: [phone] GE use only - for [employer] import when terms are not otherwise specified 404 ms Invalid Interpretation Code [facility] [employer] Work Phone: [phone] P wave axis, electrocardiogram 27 deg Invalid Interpretation Code [facility] Work Phone: [phone] VA interval, electrocardiogram 192 ms Invalid Interpretation Code [facility] [employer] Work Phone: [phone] Pulse (Heart Rate) 66 /min Invalid Interpretation Code [facility] [employer] Work Phone: [phone] QRS axis, electrocardiogram 10 deg Invalid Interpretation Code [facility] [employer] Work Phone: [phone] QRS duration, electrocardiogram 86 ms Invalid Interpretation Code [facility] [employer] Work Phone: [phone] QT interval, electrocardiogram new path ms Invalid Interpretation Code [employer] Work Phone: [phone] T wave axis, electrocardiogram 18 deg Invalid Interpretation Code [facility] [employer] Work Phone: [phone] 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 06-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 Anion gap 8 mmol/L Invalid Interpretation Code [facility] [employer] Work Phone: [phone] basophils as percent of blood leukocytes, manual count 0.3 % Invalid Interpretation Code [facility] [employer] Work Phone: [phone] BUN/Creatinine Ratio 27.0 mg/mg High [facility] [employer] Work Phone: [phone] Calcium 9.1 mg/dL Invalid Interpretation Code [facility] [employer] Work Phone: [phone] Chloride 107 mmol/L Invalid Interpretation Code [facility] [employer] Work Phone: [phone] CO2 25.0 mmol/L Invalid Interpretation Code [facility] [employer] Work Phone: [phone] Creatinine 1.15 mg/dL Invalid Interpretation Code [facility] [employer] Work Phone: [phone] eGFR (non-black) 68 mL/min/{1.73_m2} Invalid Interpretation Code [employer] Work Phone: [phone] eGFR (non-black) 82 mL/min/{1.73_m2} Invalid Interpretation Code [facility] [employer] Work Phone: [phone] eosinophils as percent of blood leukocytes, manual count 2.0 % Invalid Interpretation Code [employer] Work Phone: [phone] Erythrocytes (RBC) 3.97 10*6/uL Low [facility] Work Phone: [phone] Glucose 99 mg/dL Invalid Interpretation Code [facility] Work Phone: [phone] Hematocrit (HCT) 37.2 % Low [facility] Work Phone: [phone] Hemoglobin (HGB) 13.1 g/dL Invalid Interpretation Code [facility] Work Phone: [phone] Lymphocytes/100 leukocytes 14.8 % Low [facility] Work Phone: [phone] MCH 33.0 pg High [facility] Work Phone: [phone] MCHC 35.2 g/dL Invalid Interpretation Code [facility] Work Phone: [phone] MCV 93.7 fL Invalid Interpretation Code [facility] Work Phone: [phone] Monocytes/100 leukocytes 7.7 % Invalid Interpretation Code [facility] Work Phone: [phone] neutrophils, band form as percent of blood leukocytes, manual count 74.7 % High [facility] Work Phone: [phone] Platelets 185 10*3/mm3 Invalid Interpretation Code [facility] Work Phone: [phone] PMV by Abel 11.0 fL Invalid Interpretation Code [facility] Work Phone: [phone] Potassium 4.3 mmol/L Invalid Interpretation Code [facility] Work Phone: [phone] RDW-CA 13.8 % Invalid Interpretation Code [facility] Work Phone: [phone] Sodium 140 mmol/L Invalid Interpretation Code [facility] Work Phone: [phone] Urea nitrogen 31 mg/dL High [facility] Work Phone: [phone] WBC (Leukocytes) 8.9 10*3/uL Invalid Interpretation Code [facility] Work Phone: [phone] Vital Signs Date Time Vital Sign Value Performing Clinician Facility 03-14-2024 09:25-0400 Body height 174 cm Milena Herman APRN.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 Work Phone: [place] [id number] 09:25-0400 Body mass index (BMI) [Ratio] 33.2 kg/m2 Milena Tapiaoll [employer] GRADER.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 Work Phone: [facility] 03-14-2024 09:25-0400 Body weight 100.5 kg Milena Tapiaoll [employer] GRADER.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 Work Phone: [facility] 03-14-2024 09:25-0400 Diastolic blood pressure 80 mm[Hg] Milena Tapiaoll [employer] GRADER.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 Work Phone: [facility] 03-14-2024 09:25-0400 Heart rate 59 /min Milena Tapiaoll [employer] GRADER.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 Work Phone: [facility] 03-14-2024 09:25-0400 Systolic blood pressure 122 mm[Hg] Milena Tapiaoll [employer] GRADER.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 Work Phone: [facility] 01-19-2024 09:20-0400 Body height 174 cm Ralph Noriega MD Work Phone: [facility] 01-19-2024 09:20-0400 Body mass index (BMI) [Ratio] 33.89 kg/m2 Ralph Noriega MD Work Phone: [facility] 01-19-2024 09:20-0400 Body weight 102.6 kg Ralph Noriega MD Work Phone: [facility] 01-19-2024 09:20-0400 Diastolic blood pressure 83 mm[Hg] Ralph Noriega MD Work Phone: [facility] 01-19-2024 09:20-0400 Heart rate 59 /min Ralph Noriega MD Work Phone: [facility] 01-19-2024 09:20-0400 Systolic blood pressure 159 mm[Hg] Ralph Noriega MD Work Phone: [facility] 10-29-2023 09:54-0500 Body height 174 cm Ralph Noriega MD Work Phone: [facility] 10-29-2023 09:54-0500 Body mass index (BMI) [Ratio] 34.85 kg/m2 Ralph Noriega MD Work Phone: [facility] 10-29-2023 09:54-0500 Body weight 105.51 kg Ralph Noriega MD Work Phone: [facility] 10-29-2023 09:54-0500 Diastolic blood pressure 87 mm[Hg] Ralph Noriega MD Work Phone: [facility] 10-29-2023 09:54-0500 Heart rate 64 /min Ralph Noriega MD Work Phone: [facility] 10-29-2023 09:54-0500 Systolic blood pressure 172 mm[Hg] Ralph Noriega MD Work Phone: [facility] 10-21-2023 09:04-0500 Body temperature 98.4 [degF] Day Rod DO Work Phone: [facility] 10-21-2023 09:04-0500 Body weight 104.78 kg Day Rod DO Work Phone: [facility] 10-21-2023 09:04-0500 Diastolic blood pressure 90 mm[Hg] Day Rod DO Work Phone: [facility] 10-21-2023 09:04-0500 Heart rate 70 /min Day Rod DO Work Phone: [facility] 10-21-2023 09:04-0500 Respiratory rate 16 /min Day Rod DO Work Phone: [facility] 10-21-2023 09:04-0500 SaO2% (BldA) [Mass fraction] 97 % Day Rod DO Work Phone: [facility] 10-21-2023 09:04-0500 Systolic blood pressure 140 mm[Hg] Day Rod DO Work Phone: [facility] 07-28-2023 09:21-0500 Body height 174 cm Ralph Noriega MD Work Phone: [facility] 07-28-2023 09:21-0500 Body mass index (BMI) [Ratio] 33.8 kg/m2 Ralph Noriega MD Work Phone: [facility] 07-28-2023 09:21-0500 Body weight 102.33 kg Ralph Noriega MD Work Phone: [facility] 07-28-2023 09:21-0500 Diastolic blood pressure 83 mm[Hg] Ralph Noriega MD Work Phone: [facility] 07-28-2023 09:21-0500 Heart rate 61 /min Ralph Noriega MD Work Phone: [facility] 07-28-2023 09:21-0500 Systolic blood pressure 159 mm[Hg] Ralph Noriega MD Work Phone: [facility] 06-12-2023 09:41-0400 Body height 177.8 cm Revee Work Phone: [facility] 06-12-2023 09:41-0400 Body weight 103.47 kg [employer] DO Work Phone: [facility] 06-12-2023 09:41-0400 Diastolic blood pressure 90 mm[Hg] [employer] DO Work Phone: [facility] 06-12-2023 09:41-0400 Heart rate 65 /min Milton [email or web address] Work Phone: [facility] 06-12-2023 09:41-0400 Systolic blood pressure 138 mm[Hg] [email or web address] Work Phone: [facility] 04-27-2023 08:49-0400 Body mass index (BMI) [Ratio] 34.01 kg/m2 Ralph Noriega MD Work Phone: [facility] 04-27-2023 08:49-0400 Body weight 102.97 kg Ralph Noriega MD Work Phone: [facility] 04-27-2023 08:49-0400 Diastolic blood pressure 89 mm[Hg] Ralph Noriega MD Work Phone: [facility] 04-27-2023 08:49-0400 Heart rate 64 /min Ralph Noriega MD Work Phone: [facility] 04-27-2023 08:49-0400 Systolic blood pressure 162 mm[Hg] Ralph Noriega MD Work Phone: [facility] 03-13-2023 14:27-0400 Body mass index (BMI) [Ratio] 34.16 kg/m2 Ralph Noriega MD Work Phone: [facility] 03-13-2023 14:27-0400 Body weight 103.42 kg Ralph Noriega MD Work Phone: [facility] 03-13-2023 14:27-0400 Diastolic blood pressure 86 mm[Hg] Ralph Noriega MD Work Phone: [facility] 03-13-2023 14:27-0400 Heart rate 62 /min Ralph Noriega MD Work Phone: [facility] 03-13-2023 14:27-0400 Systolic blood pressure 179 mm[Hg] Ralph Noriega MD Work Phone: [facility] 10-16-2022 12:51-0500 Body height 174 cm Milena Herman [employer]ADER.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 Work Phone: [facility] 10-16-2022 12:51-0500 Body weight 108.41 kg Milena Herman [employer]ADER.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 Work Phone: [facility] 10-16-2022 12:51-0500 Diastolic blood pressure 92 mm[Hg] Milena Herman CR[employer] GRADER.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 Work Phone: [facility] 10-16-2022 12:51-0500 Heart rate 64 /min Milena Herman [employer] GRADER.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 Work Phone: [facility] 10-16-2022 12:51-0500 Systolic blood pressure 140 mm[Hg] Milena Herman CR[employer] GRADER.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 Work Phone: [facility] 05-27-2022 18:16-0400 Diastolic blood pressure 98 mm[Hg] VIVI MENDEZ MD [facility] 05-27-2022 18:16-0400 Systolic blood pressure 160 mm[Hg] VIVI MENDEZ MD [facility] 05-27-2022 15:39-0400 Body temperature 98.06 [degF] VIVI MENDEZ MD [facility] 05-27-2022 15:39-0400 Diastolic blood pressure 84 mm[Hg] VIVI MENDEZ MD [address] [place] [address] 05-27-2022 15:39-0400 Heart rate 55 /min VIVI MENDEZ MD [facility] 05-27-2022 15:39-0400 Respiratory rate 18 /min VIVI MENDEZ MD [facility] 05-27-2022 15:39-0400 Systolic blood pressure 135 mm[Hg] VIVI MENDEZ MD [facility] 05-27-2022 11:17-0400 Body temperature 98.24 [degF] VIVI MENDEZ MD [facility] 05-27-2022 11:17-0400 Diastolic blood pressure 66 mm[Hg] VIVI MENDEZ MD [facility] 05-27-2022 11:17-0400 Heart rate 62 /min VIVI MENDEZ MD [facility] 05-27-2022 11:17-0400 Respiratory rate 20 /min VIVI MENDEZ MD [facility] 05-27-2022 11:17-0400 Systolic blood pressure 111 mm[Hg] VIVI MENDEZ MD [facility] 05-27-2022 07:47-0400 Body temperature 98.06 [degF] VIVI MENDEZ MD [facility] 05-27-2022 07:47-0400 Heart rate 57 /min VIVI MENDEZ MD [facility] 05-27-2022 07:47-0400 Mean blood pressure 120 mm[Hg] VIVI MENDEZ MD [facility] 05-27-2022 07:47-0400 Reason For Taking VItal Signs VIVI MENDEZ MD [facility] 05-27-2022 07:47-0400 Respiratory rate 20 /min VIVI MENDEZ MD [facility] 05-27-2022 05:11-0400 Mean blood pressure 95 mm[Hg] VIVI MENDEZ MD [facility] 05-27-2022 05:11-0400 Reason For Taking VItal Signs VIVI MENDEZ MD [facility] 05-26-2022 23:03-0400 Mean blood pressure 94 mm[Hg] VIVI MENDEZ MD [facility] 05-26-2022 23:03-0400 Reason For Taking VItal Signs VIVI MENDEZ MD [facility] 05-26-2022 19:53-0400 Diastolic Blood Pressure NBP 84 1 VIVI MENDEZ MD [facility] 05-26-2022 19:53-0400 Mean blood pressure 104 mm[Hg] VIVI MENDEZ MD [facility] 05-26-2022 19:53-0400 Systolic Blood Pressure NBP 161 1 VIVI MENDEZ MD [facility] 05-26-2022 13:38-0400 Diastolic Blood Pressure NBP 72 1 VIVI MENDEZ MD [facility] 05-26-2022 13:38-0400 Systolic Blood Pressure NBP 136 1 VIVI MENDEZ MD [facility] 05-26-2022 08:46-0400 Diastolic Blood Pressure NBP 85 1 VIVI MENDEZ MD [facility] 05-26-2022 08:46-0400 Mean blood pressure 103 mm[Hg] VIVI MENDEZ MD [facility] 05-26-2022 08:46-0400 Systolic Blood Pressure NBP 162 1 VIVI MENDEZ MD [facility] 05-26-2022 03:51-0400 Mean blood pressure 80 mm[Hg] VIVI MENDEZ MD [facility] 05-24-2022 21:55-0400 Body height 175.3 cm VIVI MENDEZ MD [facility] 05-24-2022 21:55-0400 Body weight 113 kg VIVI MENDEZ MD [facility] 05-24-2022 21:55-0400 Body weight 36.77 kg/m2 VIVI MENDEZ MD [facility] 05-24-2022 14:06-0400 Body weight 113 kg VIVI MENDEZ MD [facility] 05-24-2022 14:06-0400 Heart rate 60 /min IVVI MENDEZ MD [facility] 12-16-2016 15:55-0400 BMI (Body Mass Index) 36.73 kg/m2 [facility] Work Phone: 12-16-2016 15:55-0400 BP Diastolic 72 mm[Hg] [facility] Work Phone: 12-16-2016 15:55-0400 BP Systolic 132 mm[Hg] [facility] Work Phone: 12-16-2016 15:55-0400 Height 177.8 cm [facility] Work Phone: 12-16-2016 15:55-0400 Pulse (Heart Rate) 68 /min Merly Seth RN [facility] Work Phone: 12-16-2016 15:55-0400 Respiratory Rate 18 /min Merly Seth RN [facility] Work Phone: 12-16-2016 15:55-0400 Weight 116.12 kg Merly Seth RN [facility] [employer] [facility] Work Phone: 02-18-2016 07:58-0400 Body Temperature 98 [degF] Merly Seth RN [facility] [employer] [facility] Work Phone: 02-18-2016 07:58-0400 BSA (Body Surface Area) 2.3 m2 Merly Seth RN [facility] [employer] Work Phone: 02-18-2016 07:58-0400 Pulse Oximetry 97 % Merly Seth RN [facility] [employer] Work Phone: 12-27-2015 16:06-0400 Pulse Oximetry 96 % Merly Seth RN [facility] [employer] Work Phone: Encounters Encounter Date Encounter Type Care Provider Facility Start: 06-20-2024 End: 06-20-2024 Refill Milena Herman APRN.CNP Work Phone: [facility] Comment on above: Refill Request Start: 04-05-2024 Telephone encounter Milena Car nehal [employer].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 Work Phone: [facility] Comment on above: Results (Echocardiog nate) Start: 04-01-2024 End: 04-01-2024 ambulatory MILENA HERMAN Facility:[id number] Start: 03-31-2024 Telephone encounter Milena Car nehal [employer].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 Work Phone: [facility] Comment on above: Appointment (Reminde r) Start: 03-14-2024 End: 03-14-2024 Patient encounter procedure Milena Herman APRN.[facility] Work Phone: [facility] Comment on above: Chronic diastolic HF (heart failure) (HCC) (Primary Dx); Essential hypertension, benign; History of echocardiogram; History of cardiac cath; History of stress test; Never smoked cigarettes Start: 03-14-2024 End: 03-14-2024 ambulatory MILENA HERMAN Facility:[id number] Start: 01-19-2024 End: 01-19-2024 ambulatory [facility] Start: 01-19-2024 End: 01-19-2024 Office outpatient visit 25 minutes Ralph Noriega MD Work Phone: [facility] Comment on above: Parkinson's disease with fluctuating manifestations, unspecified whether dyskinesia present (HCC) (Primary Dx); Essential tremor Start: 12-22-2023 End: 12-23-2023 ambulatory ADELINA GUERRA DO Facility:A Start: 12-19-2023 End: 12-19-2023 Emergency department patient visit IVOLETTE HAUSER MD Facility:A Start: 11-27-2023 End: 11-28-2023 ambulatory ADELINA GUERRA DO Facility:A Start: 10-29-2023 End: 10-29-2023 ambulatory [facility] Start: 10-29-2023 End: 10-29-2023 Office outpatient visit 25 minutes Ralph Noriega MD Work Phone: [facility] Comment on above: Parkinson's disease with fluctuating manifestations, unspecified whether dyskinesia present (Primary Dx); Essential tremor; Myalgia; Parkinson disease Start: 10-28-2023 Telephone encounter Milton Basilio DO Work Phone: [facility] Comment on above: Patient Question Start: 10-27-2023 End: 10-27-2023 Emergency department patient visit DR RAZIA MAYA DO Facility:A Start: 10-21-2023 End: 10-21-2023 Patient encounter procedure Day Rod DO Work Phone: [facility] [place] Comment on above: Acute otitis externa of both ears, unspecified type (Primary Dx) Start: 10-21-2023 End: 10-21-2023 ambulatory SELF Facility:[id number] Start: 10-09-2023 End: 10-10-2023 ambulatory ADELINA GUERRA DO Facility:A Start: 07-28-2023 End: 07-28-2023 ambulatory [facility] Start: 07-28-2023 End: 07-28-2023 Office outpatient visit 25 minutes Ralph Noriega MD Work Phone: [facility] Comment on above: Parkinson's disease with fluctuating manifestations, unspecified whether dyskinesia present (Primary Dx); Essential tremor; Parkinson disease Start: 07-24-2023 End: 07-25-2023 ambulatory ADELINA GUERRA DO Facility:A Start: 07-08-2023 End: 07-13-2023 ambulatory SHERICE MELVIN 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 Facility:A Start: 06-12-2023 End: 06-12-2023 Patient encounter procedure Milton Basilio DO Work Phone: [facility] Comment on above: Hypertension, unspec ified type (Primary Dx); Stage 3a chronic kidney disease (HCC); Hyperlipidemia LDL goal <70; PATRICIO (obstructive sleep apnea); Chronic diastolic congestive heart failure (HCC); History of echocardiogram; History of cardiac cath; History of stress test; Non-smoker Start: 06-12-2023 End: 06-12-2023 ambulatory RAZIA MAYA Facility:[id number] Start: 04-30-2023 End: 05-05-[address] RAZIA MAYA DO Facility:A Start: 04-27-2023 End: 04-27-2023 Refill Ralph Noriega MD Work Phone: [facility] Start: 04-27-2023 End: 04-27-2023 Office outpatient visit 25 minutes Rlaph Noriega MD Work Phone: [facility] Comment on above: Parkinson disease (H CC) (Primary Dx); Essential tremor Start: 03-29-2023 End: 03-29-2023 ambulatory SIM ALBA PA-C Facility:A Start: 03-13-2023 End: 03-13-2023 ambulatory [facility] Start: 03-13-2023 End: 03-13-2023 Office outpatient visit 25 minutes Ralph Noriega MD Work Phone: [facility] Comment on above: Parkinson disease (H CC) (Primary Dx); Essential tremor Start: 03-02-2023 End: 03-07-2023 ambulatory ADELINA GUERRA DO Facility:A Start: 01-27-2023 End: 02-01-2023 ambulatory SHERICE MELVIN EZEKIEL-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 Facility:A Start: 01-05-2023 End: 01-10-2023 ambulatory ADELINA GUERRA DO Facility:A Start: 12-11-2022 End: 12-11-2022 ambulatory [facility] Facility:[facility] Start: 11-13-2022 End: 11-13-2022 ambulatory [facility] Facility:[facility] Start: 10-16-2022 End: 10-16-2022 ambulatory MILENA HERMAN Facility:[facility] Start: 10-16-2022 End: 10-16-2022 Patient encounter procedure Milena Herman APRN.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 Work Phone: [facility] Comment on above: Chronic diastolic HF (heart failure) (HCC) (Primary Dx); Aortic valve stenosis, etiology of cardiac valve disease unspecified; Essential hypertension; PATRICIO (obstructive sleep apnea); History of echocardiogram; Abnormal renal ultrasound; Never smoked cigarettes; History of cardiac cath; Stage 3a chronic kidney disease (HCC) Start: 05-24-2022 End: 05-27-2022 Evaluation and management of inpatient VIVI MENDEZ MD [facility] Procedures Date Procedure Procedure Detail Performing Clinician Start: 03-14-2024 Ecg routine ecg w/le ast 12 lds i&r only Milena Herman APRN.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 Work Phone: Start: 06-12-2023 Ecg routine ecg w/le ast 12 lds i&r only Milton Basilio DO Work Phone: Start: 03-11-2022 Injection into lumba r epidural space VIVI MENDEZ MD Start: 12-29-2021 Laser ablation of lo ng saphenous vein VIVI MENDEZ MD Start: 02-18-2016 End: 02-18-2016 Thyroid stimulating hormone (TSH) Razia Maya DO Work Phone: Start: 12-27-2015 End: 12-27-2015 NANCY Chacko MD Start: 12-27-2015 End: 12-27-2015 Follow Up Appt 1 year Federico Chacko MD Start: 07-25-2015 End: 07-25-2015 NANCY Chacko MD Start: 07-25-2015 End: 12-26-2015 Echocardiography Federico Chacko MD Start: 07-25-2015 End: 07-25-2015 Follow Up Appt 6 months Stephan Canas Start: 06-20-2015 End: 12-27-2015 NANCY Chacko MD Start: 06-20-2015 End: 06-21-2015 Documentation of current medications Federico Chacko MD Start: 06-20-2015 End: 12-26-2015 Electrocardiogram, complete Federico Thorpe i, MD Start: 06-20-2015 End: 12-27-2015 Follow Up Appt 1 month Federico Chacko MD Start: 08-31-1981 Retroperitoneal lymp h node dissection VIVI MENDEZ MD Start: 08-31-1955 Tonsillectomy VIVI FRANCE MD History of colonoscopy DAVID MENDEZ MD Comment on above: with removal of poly p Total orchidectomy VIVI FRANCE MD Plan of Treatment Date Care Activity Detail Author Start: 01-18-2025 End: 01-18-2025 Patient encounter procedure 01/18/2025 10:00 AM EDT Office Visit [facility] [address] [place] [address] Ralph Noriega MD [address] [place] [address] [facility] Start: 12-13-2024 End: 12-13-2024 Patient encounter procedure [facility] Comment on above: 9 month follow up Start: 05-01-2024 Covid-19 Vaccine () Covid-19 Vaccine () [facility] Start: 05-01-2024 Influenza vaccination [facility] Start: 04-04-2024 End: 04-04-2024 Patient encounter procedure 04/04/2024 3:00 PM EDT Appointment [facility] [address] [place], [place] [id number] Chronic diastolic HF (heart failure) (HCC) [I50.32] [facility] Comment on above: Chronic diastolic HF (heart failure) (HC C) [I50.32] Start: 04-01-2024 End: 04-01-2024 Patient encounter procedure 04/01/2024 3:00 PM EDT Office Visit [facility] [address] [place] [address] Chronic diastolic HF (heart failure) (HCC) [I50.32] [facility] Comment on above: Chronic diastolic HF (heart failure) (HC C) [I50.32] Start: 01-19-2024 End: 01-19-2024 Patient encounter procedure 01/19/2024 9:30 AM EDT Office Visit [facility] [address] [place] [address] Ralph Noriega MD [address] [place] [address] [facility] Start: 10-29-2023 End: 10-29-2023 Patient encounter procedure 10/29/2023 10:00 AM EST Office Visit [facility] [address] [place] [phone] Ralph Noriega MD [address] [place] [address] [facility] Start: 10-04-2023 Covid-19 Vaccine () Covid-19 Vaccine () [facility] Start: 08-31-2023 Advance Directive Discussion Advance Directive Discussion [facility] Start: 08-31-2023 Behavioral Health Screening Behavioral Health Screening [facility] Start: 08-31-2023 Depression Assessment Depression Assessment [facility] Start: 08-31-2023 Medicare Advantage Annual Wellness Visit Medicare Advantage Annual Wellness Visit [facility] Start: 07-28-2023 End: 07-28-2023 Patient encounter procedure 07/28/2023 9:30 AM EST Office Visit [facility] [address] [place] [id number] Ralph Noriega MD [address] [facility] [address] [place] [address] [facility] Start: 05-01-2023 COVID-19 Vaccine ( season) COVID-19 Vaccine () [facility] Start: 05-01-2023 Influenza vaccination Influenza Vaccine (#1) [facility] Start: 04-27-2023 End: 04-27-2023 Patient encounter procedure 04/27/2023 9:00 AM EDT Office Visit [facility] [address] [place] [phone] Ralph Noriega MD [address] [facility] [facility] [address] [place] [address] [facility] Start: 08-31-2022 ADVANCE DIRECTIVE DISCUSSION ADVANCE DIRECTIVE DISCUSSION [facility] Start: 08-31-2022 DEPRESSION ASSESSMENT DEPRESSION ASSESSMENT [facility] Start: 06-15-2022 COVID-19 Vaccine (5 - Booster for Moderna series) COVID-19 Vaccine (5 - Booster for Moderna series) [facility] Start: 12-16-2017 End: 12-16-2017 Appointment Appointment [facility] Work Phone: Start: 12-16-2016 End: 12-16-2016 LOOP SEWER LOOP SEWER [facility] Work Phone: Start: 12-16-2016 End: 12-16-2016 Follow Up Appt 1 year Follow Up Appt 1 year [facility] Work Phone: Start: 02-18-2016 End: 02-18-2016 Thyroid stimulating hormone (TSH) *TSH [facility] Work Phone: Start: 12-27-2015 End: 12-27-2015 LOOP SEWER LOOP SEWER [facility] Work Phone: Start: 12-27-2015 End: 12-27-2015 Follow Up Appt 1 year Follow Up Appt 1 year [facility] Work Phone: Start: 11-23-2015 Pneumococcal Vaccine: 65+ Years (1 - PCV) Pneumococcal Vaccine: 65+ Years (1 - PCV) [facility] Start: 11-23-2015 Pneumococcal Vaccine: 65+ Years (1 of 1 - PCV) Pneumococcal Vaccine: 65+ Years (1 of 1 - PCV) [facility] Start: 07-25-2015 End: 07-25-2015 LOOP SEWER LOOP SEWER [facility] Work Phone: Start: 07-25-2015 End: 07-25-2015 Echocardiography Echocardiogram (complete) [facility] Work Phone: Start: 07-25-2015 End: 07-25-2015 Follow Up Appt 6 months Follow Up Appt 6 months [facility] Work Phone: Start: 06-20-2015 End: 12-27-2015 LOOP SEWER LOOP SEWER [facility] Work Phone: Start: 06-20-2015 End: 12-26-2015 Electrocardiogram, complete EKG (In office) [facility] Work Phone: Start: 06-20-2015 End: 12-27-2015 Follow Up Appt 1 month Follow Up Appt 1 month [facility] Work Phone: Start: 2010 RSV Immunization aged 60 or older (1 - 1-dose 60+ series) RSV Immunization aged 60 or older (1 - 1-dose 60+ series) [facility] Start: 2000 SHINGRIX VACCINE (1 of 2) SHINGRIX VACCINE (1 of 2) [facility] Start: 2000 Zoster Vaccines (1 of 2) Zoster Vaccines (1 of 2) [facility] Start: 11-23-1995 COLOGUARD (FIT-DNA) COLOGUARD (FIT-DNA) [facility] Start: 11-23-1995 Colonoscopy COLONOSCOPY [facility] Start: 11-23-1995 COLORECTAL CANCER SCREENING COLORECTAL CANCER SCREENING [facility] Start: 11-23-[address] COLONOGRAPHY [facility] Start: 11-23-1995 DIABETES SCREEN DIABETES SCREEN [facility] Start: 11-23-1995 Diabetes Screening Diabetes Screening [facility] Start: 11-23-1995 FECAL OCCULT BLOOD FECAL OCCULT BLOOD [facility] Start: 11-23-1995 Screening for malignant neoplasm of colon [facility] Start: 11-23-1995 SIGMOIDOSCOPY SIGMOIDOSCOPY [facility] Start: 1985 Lipid 1996 panel - Serum or Plasma Lipid Screening [facility] Start: 1985 Lipid panel Lipid Screening [facility] Start: 1985 LIPID SCREEN LIPID SCREEN [facility] Start: 1969 DTaP/Tdap/Td Vaccines (1 - Tdap) DTaP/Tdap/Td Vaccines (1 - Tdap) [facility] Start: 1969 Urine microalbumin profile [facility] Start: 1968 ANNUAL PCP TEAM CHRONIC DISEASE VISIT ANNUAL PCP TEAM CHRONIC DISEASE VISIT [facility] Start: 1968 Anxiety Screening Anxiety Screening [facility] Start: 1968 BP Controlled (<130/80) BP Controlled (<130/80) [facility] Start: 1968 Complete blood count Hemoglobin/Hematocrit [facility] Start: 1968 Creatinine measurement Serum Creatinine [facility] Start: 1968 Depression Screening Depression Screening [facility] Start: 1968 Diabetes mellitus screening Diabetes Screening [facility] Start: 1968 Hemoglobin/Hematocrit Hemoglobin/Hematocrit [facility] Start: 1968 HEPATITIS C SCREENING HEPATITIS C SCREENING [facility] Start: 1968 Hepatitis C screening Hepatitis C Screening [facility] Start: 1968 Serum Creatinine Serum Creatinine [facility] Start: 1962 Depression Screening Depression Screening [facility] Start: 1956 Pneumococcal Vaccine: 65+ (1 - PCV) Pneumococcal Vaccine: 65+ (1 - PCV) [facility] Start: 1956 Pneumococcal Vaccine: 65+ (1 of 2 - PCV) Pneumococcal Vaccine: 65+ (1 of 2 - PCV) [facility] Start: 1956 PNEUMOCOCCAL: 65+ (1 - PCV) PNEUMOCOCCAL: 65+ (1 - PCV) [facility] Start: 1950 Creatinine measurement Creatinine Level [facility] Start: 1950 DISCONTINUED Medicare Advantage Annual Wellness Visit (AWV) DISCONTINUED Medicare Advantage Annual Wellness Visit (AWV) [facility] Start: 1950 Echocardiography Echocardiogram [facility] Start: 1950 Lipid panel Lipid Panel [facility] Start: 1950 Medicare Advantage Annual Wellness Visit (AWV) Medicare Advantage Annual Wellness Visit (AWV) [facility] Start: 1950 Potassium measurement Potassium Level [facility] Start: 1950 Screening for malignant neoplasm of colon [facility] ECG COMPLETE ECG COMPLETE ECG Routine Essential hypertension 10/16/2022 12:[address] [facility] Work Phone: ECG COMPLETE ECG COMPLETE ECG Routine Hypertension, unspecified type 06/12/2023 9:[address] [facility] Work Phone: ECG COMPLETE ECG COMPLETE ECG Routine Essential hypertension, benign 03/14/2024 9:31 AM T [facility] End: 03-14-2025 Echocardiography [facility] Cardiology Routine Chronic diastolic HF (heart failure) (HCC) 1 Occurrences starting 03/14/2024 until 03/14/[address] [facility] Work Phone: Comment on above: 1 Occurrences starting 03/14/2024 until 03/14/2025 [facility] Immunizations Immunization Date Immunization Notes Care Provider [facility] 06-03-2023 influenza virus vacc ine, unspecified formulation Milena Herman APRN.CNP Work Phone: [facility] 04-20-2022 influenza virus vacc ine, unspecified formulation Ralph Noriega MD Work Phone: [facility] Payers Date Payer Category Payer Unknown [id number] 2022 Medicare [id number] 2022 Unknown [employer]M BL[employer] S AND BLUE SHIELD [employer]M MEDIBL[employer] HMO [id number] 2022-Present [phone] [address] [place] [address] HMO [id number] 2017 Unknown [id number] 1950 Unknown [id number] 1950 Unknown [id number]. 1950 Unknown [id number]. 1950 Unknown [id number] 1950 Unknown [id number] 1950 Unknown [id number]. 1950 Unknown [id number] 1950 Unknown [id number] 1950 Unknown [id number] 1950 Unknown [id number] 1950 Unknown [id number] 1950 Unknown [id number] Social History Date Type Detail Facility Start: 04-22-2022 End: 08-12-2022 Tobacco smoking status Never smoked tobacco (finding) [facility] Sex Assigned At Sex [facility] Start: 08-12-2022 Tobacco use and exposure Smokeless tobacco non-user [facility] Start: 10-16-2022 End: 04-05-2024 Alcohol intake Ex-drinker (finding) [facility] Start: 1950 Sex Assigned At Not on file C [facility] Start: 03-13-2023 End: 01-19-2024 Alcohol intake Lifetime non-drinker (finding) [facility] Start: 10-27-2022 End: 06-12-2023 History of Social function [facility] Start: 10-27-2022 End: 06-12-2023 Tobacco use panel [facility] Start: 1950 Sex Assigned At Male [facility] Start: 07-11-2022 Gender identity Identifies as male gender (finding) [facility] Start: 03-03-2023 End: 04-27-2023 Exposure to SARS-CoV-2 (event) Not sure [facility] National Score (1-100), lower number is lower risk 91 [facility] Goals Date Patient Goal Desired Activity /State Personal health goal Functional Status Date Assessment Result Facility 05-27-2022 Functional Status [facility] 05-27-2022 Functional Status Room check performed [facility] 05-27-2022 Functional Status Bed Bath Refused [facility] 05-27-2022 Functional Status [facility] 05-27-2022 Functional Status Hospital bed [facility] 05-26-2022 Functional Status [facility] 05-26-2022 Functional Status [facility] 05-26-2022 Functional Status [facility] 05-26-2022 Functional Status Done [facility] 05-26-2022 Functional Status Patient refused [facility] 05-25-2022 Functional Status [facility] 05-25-2022 Functional Status Breakfast Percent 100 A [facility] 05-24-2022 Functional Status Sensory Deficits None A [facility] 05-24-2022 Functional Status [facility] Mental Status Date Assessment Result Facility 05-27-2022 Mental Status Orientation Oriented x 4 [facility] 05-27-2022 Mental Status [facility] 05-26-2022 Mental Status [facility] 05-26-2022 Mental Status Orientation Assessment Orie nted x 4 [facility] 05-25-2022 Mental Status [facility] 05-25-2022 Mental Status [facility] Clinical Notes 05-24-2022 to 06-20-2024 Telephone Encounter - Sharlene Moran MA - 06/20/2024 11:01 AM EDTTelephone Encounter - Sharlene Moran MA - 06/20/2024 11:01 AM EDTTelephone Encounter - Sherice Basilio - 04/05/2024 2:14 PM EDT Note Date & Type Note Facility 06-20-2024 Telephone encounter Note Prescription Refill Information The patient has been identified by name and date of : Yes Caregiver verified no other encounters exist for this prescription request: Yes Caregiver confirmed with patient/requestor that no other refills are due, in the near future, with this provider at this time: No The last office visit in the department: 03/14/24 Does the patient have a future office visit with this provider/department: Yes - 12/13/24 Requested Prescriptions Pending Prescriptions Disp Refills carvedilol (COREG) 25 mg tablet 180 tablet 1 Sig: Take 1 tablet by mouth two times a day with meals. Sharlene Moran MA June 20, 2024 11:04 AM [facility] 06-20-2024 Miscellaneous Notes Prescription Refill Information The patient has been identified by name and date of : Yes Caregiver verified no other encounters exist for this prescription request: Yes Caregiver confirmed with patient/requestor that no other refills are due, in the near future, with this provider at this time: No The last office visit in the department: 03/14/24 Does the patient have a future office visit with this provider/department: Yes - 12/13/24 Requested Prescriptions Pending Prescriptions Disp Refills carvedilol (COREG) 25 mg tablet 180 tablet 1 Sig: Take 1 tablet by mouth two times a day with meals. Sharlene Moran MA June 20, 2024 11:04 AM documented in this encounter [facility] 04-05-2024 Telephone encounter Note Patient returned the call and was given the message Please call patient let him know that his echocardiogram from 04/01/2024 shows heart strength is good. There is moderate mitral valve regurgitation and stenosis. Moderate aortic stenosis. We will continue to monitor. This is a stable echocardiogram Thank you very much Patient voiced understanding [facility] 04-05-2024 Miscellaneous Notes Patient returned the call and was given the message Please call patient let him know that his echocardiogram from 04/01/2024 shows heart strength is good. There is moderate mitral valve regurgitation and stenosis. Moderate aortic stenosis. We will continue to monitor. This is a stable echocardiogram Thank you very much Patient voiced understanding Left a voicemail for a return call back. Results ABS. Please call patient let him know that his echocardiogram from 04/01/2024 shows heart strength is good. There is moderate mitral valve regurgitation and stenosis. Moderate aortic stenosis. We will continue to monitor. This is a stable echocardiogram Thank you very much documented in this encounter [facility] 04-05-2024 Telephone encounter Note Left a voicemail for a return call back. Results ABS. [facility] 04-05-2024 Telephone encounter Note Please call patient let him know that his echocardiogram from 04/01/2024 shows heart strength is good. There is moderate mitral valve regurgitation and stenosis. Moderate aortic stenosis. We will continue to monitor. This is a stable echocardiogram Thank you very much [facility] 03-31-2024 Telephone encounter Note LM for patient w/ date, time, & location of appt. [facility] 03-31-2024 Miscellaneous Notes LM for patient w/ date, time, & location of appt. documented in this encounter [facility] 03-14-2024 Note HNO ID: [id number] Author: MILENA HERMAN APRN.CNP Service: ? Author Type: Nurse Practitioner Type: Progress Notes Filed: 03/14/2024 22:21 Note Text: [facility] Department of Cardiology Referring Provider: No ref. provider found Date: March 14, 2024 Chief Complaint: Diastolic heart failure Subjective: Carolyn Abbott is a 73 year old male who presents as an established patient for diastolic heart failure assessment and management. Patient does state he has had some shortness of breath. He feels the shortness of breath is just ongoing. He has noticed some fatigue. Patient denies any headaches, dizziness, syncope or near syncopal episodes. Patient has had no chest pain, palpitations, PND, or orthopnea. ALLERGIES Allergen Reactions Clindamycin Swelling Sulfa (Sulfonamide * Unknown PAST MEDICAL HISTORY: PAST MEDICAL HISTORY Diagnosis Date Abnormal renal ultrasound 05/26/2022 No evidence of hemodynamically significant arterial stenosis, involving the right renal artery. Consistent with less than 60% stenosis. No evidence of hemodynamically significant arterial stenosis, involving the left renal artery. Consistent with less than 60% stenosis. Aortic stenosis 2018 Bilateral leg pain foward emg results to neuro when received; etiology unclear, but reassuring that activity actually improved the issue; possible differentials include funcitonal magnesium deficiency from his chronic use of diuretic therapy, soreness from uncontrolled leg movements that night, less likely radiculopathy/spinal stenosis- not unknown medication side effect and no med change. 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 History of echocardiogram 05/28/2022 EF 55%. Mild concentric left ventricular hypertrophy. Stage 1 diastolic dysfunction. No regional wall motion abnormalities noted. History of echocardiogram 11/26/2020 EF 65%. Normal LV size. Left ventricular systolic function is normal. Mild-moderate mitral annular calcification. Mild-moderate eccentric mitral valve insufficiency. Mild focal aortic valve calcification. Mild aortic stenosis. History of echocardiogram 01/27/2020 EF 60%. Normal LV size. Left ventricular systolic function is normal. Moderate focal aortic valve calcification. Stage 1 diastolic dysfunction. Pulmonary artery systolic pressure is 20 mmHg. History of echocardiogram 12/24/2015 EF 55%. Normal LV size. Mild concentric left ventricular hypertrophy. Left ventricular systolic function is normal. Transmitral and pulmonary venous doppler flow suggestive of impaired relaxation of left ventricle. Mild (1+) tricuspid valve insufficiency. History of echocardiogram 01/18/2018 EF 55%. Mild eccentric mitral valve insufficiency. Mild focal aortic valve calcification. Stage 1 diastolic dysfunction. Mild aortic stenosis. History of prostate cancer 1980 Diagnosed in mid 1980s, with some adenopathy in the abdomen History of stress test 01/16/2021 EF 71% Evidence of probable inferior myocardial ischemia. Hypogonadism in male IFG (impaired fasting glucose) Joint pain Lumbar spinal stenosis Multiple acquired skin tags PATRICIO (obstructive sleep apnea) Parkinson's disease (HCC) 2017 Polycystic kidney disease Polyneuropathy lower extremities, very mild, NCS 08/2021 Respiratory symptoms Valvular heart disease 2017 Vitamin D deficiency Vitreous degeneration PAST SURGICAL HISTORY Procedure Laterality Date REPAIR EPIGASTRIC HERNIA,REDUC 12/2022 ULTRASOUND GUIDANCE FOR VENOUS ABLATION FAMILY HISTORY Problem Relation Age of Onset Diabetes Mother Hypertension Mother Diabetes Father Hypertension Father Heart Attack Father Heart disease Father Diabetes Sister Hypertension Sister Cancer Brother Heart disease Brother Hypertension Brother No Known Problems Paternal Grandfather SOCIAL HISTORY: Tobacco Use: Never Alcohol Use: Not Currently Drug Use: Never Employer And Job Title: None on file Years Of Education Completed: Not specified Marital Status: MEDICATIONS: Current Outpatient Medications Medication Sig amLODIPine (NORVASC) 5 mg tablet Take 5 mg by mouth once daily. cloNIDine HCl (CATAPRES) 0.1 mg tablet Take 0.1 mg by mouth two times a day as needed. hydrALAZINE (APRESOLINE) 50 mg tablet Take 50 mg by mouth two times a day. carvedilol (COREG) 25 mg tablet Take 1 tablet by mouth two times a day with meals. hydroCHLOROthiazide 12.5 mg capsule Take 12.5 mg by mouth once daily. Ferrous Sulfate (SLOW FE) 142 mg (45 mg iron) TbER once daily. cyanocobalamin (more content not included)... [facility] 03-14-2024 History of Presen t illness Narrative Images from the original note were not included. [facility] Department of Cardiology Referring Provider: No ref. provider found Date: March 14, 2024 Chief Complaint: Diastolic heart failure Subjective: Carolyn Abbott is a 73 year old male who presents as an established patient for diastolic heart failure assessment and management. Patient does state he has had some shortness of breath. He feels the shortness of breath is just ongoing. He has noticed some fatigue. Patient denies any headaches, dizziness, syncope or near syncopal episodes. Patient has had no chest pain, palpitations, PND, or orthopnea. ALLERGIES Allergen Reactions Clindamycin Swelling Sulfa (Sulfonamide * Unknown PAST MEDICAL HISTORY: PAST MEDICAL HISTORY Diagnosis Date Abnormal renal ultrasound 05/26/2022 No evidence of hemodynamically significant arterial stenosis, involving the right renal artery. Consistent with less than 60% stenosis. No evidence of hemodynamically significant arterial stenosis, involving the left renal artery. Consistent with less than 60% stenosis. Aortic stenosis 2018 Bilateral leg pain foward emg results to neuro when received; etiology unclear, but reassuring that activity actually improved the issue; possible differentials include funcitonal magnesium deficiency from his chronic use of diuretic therapy, soreness from uncontrolled leg movements that night, less likely radiculopathy/spinal stenosis- not unknown medication side effect and no med change. Chronic diastolic HF (heart failure) ([facility]) Chronic kidney disease, stage 3a ([facility]) DDD (degenerative disc disease), lumbar Dyslipidemia Elevated prostate specific antigen (PSA) resolved on 08/04/2018 Essential hypertension Gout Hard of hearing History of cardiac cath 01/21/2021 Nonobstructive coronary arteries with coronary ectasia noted in the LAD and right coronary artery. History of echocardiogram 05/28/2022 EF 55%. Mild concentric left ventricular hypertrophy. Stage 1 diastolic dysfunction. No regional wall motion abnormalities noted. History of echocardiogram 11/26/2020 EF 65%. Normal LV size. Left ventricular systolic function is normal. Mild-moderate mitral annular calcification. Mild-moderate eccentric mitral valve insufficiency. Mild focal aortic valve calcification. Mild aortic stenosis. History of echocardiogram 01/27/2020 EF 60%. Normal LV size. Left ventricular systolic function is normal. Moderate focal aortic valve calcification. Stage 1 diastolic dysfunction. Pulmonary artery systolic pressure is 20 mmHg. History of echocardiogram 12/24/2015 EF 55%. Normal LV size. Mild concentric left ventricular hypertrophy. Left ventricular systolic function is normal. Transmitral and pulmonary venous doppler flow suggestive of impaired relaxation of left ventricle. Mild (1+) tricuspid valve insufficiency. History of echocardiogram 01/18/2018 EF 55%. Mild eccentric mitral valve insufficiency. Mild focal aortic valve calcification. Stage 1 diastolic dysfunction. Mild aortic stenosis. History of prostate cancer 1980 Diagnosed in mid 1980s, with some adenopathy in the abdomen History of stress test 01/16/2021 EF 71% Evidence of probable inferior myocardial ischemia. Hypogonadism in male IFG (impaired fasting glucose) Joint pain Lumbar spinal stenosis Multiple acquired skin tags PATRICIO (obstructive sleep apnea) Parkinson's disease (HCC) 2017 Polycystic kidney disease Polyneuropathy lower extremities, very mild, NCS 08/2021 Respiratory symptoms Valvular heart disease 2017 Vitamin D deficiency Vitreous degeneration PAST SURGICAL HISTORY Procedure Laterality Date REPAIR EPIGASTRIC HERNIA,REDUC 12/2022 ULTRASOUND GUIDANCE FOR VENOUS ABLATION FAMILY HISTORY Problem Relation Age of Onset Diabetes Mother Hypertension Mother Diabetes Father Hypertension Father Heart Attack Father Heart disease Father Diabetes Sister Hypertension Sister Cancer Brother Heart disease Brother Hypertension Brother No Known Problems Paternal Grandfather SOCIAL HISTORY: Tobacco Use: Never Alcohol Use: Not Currently Drug Use: Never Employer And Job Title: None on file Years Of Education Completed: Not specified Marital Status: MEDICATIONS: Current Outpatient Medications Medication Sig amLODIPine (NORVASC) 5 mg tablet Take 5 mg by mouth once daily. cloNIDine HCl (CATAPRES) 0.1 mg tablet Take 0.1 mg by mouth two times a day as needed. hydrALAZINE (APRESOLINE) 50 mg tablet Take 50 mg by mouth two times a day. carvedilol (COREG) 25 mg tablet Take 1 tablet by mouth two times a day with meals. hydroCHLOROthiazide 12.5 mg capsule Take 12.5 mg by mouth once daily. Ferrous Sulfate (SLOW FE) 142 mg (45 mg iron) TbER once daily. cyanocobalamin (VITAMIN B-12) 1,000 mcg tab Take 1,000 mcg by mouth once daily. primidone (MYSOLINE) 50 mg tablet Take 100 mg by mouth two times a day. 100mg AM and 150mg PM [id number] (STALEVO 200) 50-200-200 mg per tablet Take 1 tablet by mouth three times daily. MAGNESIUM GLUCONATE ORAL Take 500 mg by mouth once daily. pramipexole (MIRAPEX) 0.25 mg tablet Take 0.25 mg by mouth three times daily. ascorbic acid, vitamin C, (VITAMIN C) 500 mg tablet Take 1,000 mg by mouth two times a day. ergocalciferol, vitamin D2, 50 mcg (2,000 unit) tab Take 2,000 Units by mouth once daily. levocetirizine 5 mg tablet Take 5 mg by mouth daily at bedtime. No current facility-administered medications for this visit. I have personally reviewed the patients past medical history including social, family, surgical, diagnostics, and medications./AB REVIEW OF SYSTEMS: Review of Systems Constitutional: Negative for chills and fatigue. Respiratory: Negative for chest tightness and shortness of breath. Cardiovascular: Negative for chest pain, palpitations and leg swelling. Neurological: Negative for dizziness, syncope, weakness and light-headedness. Hematological: Does not bruise/bleed easily. Psychiatric/Behavioral: Negative for confusion and hallucinations. Vitals: BP 122/80 (BP Site: Left Arm, BP Position: Sitting, BP Cuff Size: Large Adult) Pulse (!) 59 Ht 174 cm (5' 8.5 ) Wt 100.5 kg (221 lb 9 oz) BMI 33.20 kg/m PHYSICAL EXAMINATION: BP 122/80 (BP Site: Left Arm, BP Position: Sitting, BP Cuff Size: Large Adult) Pulse (!) 59 Ht 174 cm (5' 8.5 ) Wt 100.5 kg (221 lb 9 oz) BMI 33.20 kg/m Last 3 Encounter BP Readings: Date: BP: 10/21/2023 140/90 06/12/2023 138/90 12/11/2022 152/84 Last 3 Encounter Pulse Readings: Date: Pulse: 10/21/2023 70 06/12/2023 65 12/11/2022 62 Last 3 Encounter Wt Readings: Date: Wt: 10/21/2023 104.8 kg (231 lb) 06/12/2023 103.5 kg (228 lb 1.9 oz) 11/13/2022 106.6 kg (235 lb) Physical Exam Vitals reviewed. Constitutional: General: He is not in acute distress. Cardiovascular: Rate and Rhythm: Normal rate and regular rhythm. Pulses: Carotid pulses are 2+ on the right side and 2+ on the left side. Radial pulses are 2+ on the right side and 2+ on the left side. Femoral pulses are 2+ on the right side and 2+ on the left side. Popliteal pulses are 2+ on the right side and 2+ on the left side. Dorsalis pedis pulses are 2+ on the right side and 2+ on the left side. Posterior tibial pulses are 2+ on the right side and 2+ on the left side. Heart sounds: Murmur heard. Systolic murmur is present with a grade of 2/6. Comments: PMI not displaced. 2nd heart sound loud. Pulmonary: Effort: Pulmonary effort is normal. Breath sounds: Normal breath sounds. Abdominal: General: Abdomen is flat. Bowel sounds are normal. Palpations: Abdomen is soft. Tenderness: There is no abdominal tenderness. Musculoskeletal: Right lower leg: No edema. Left lower leg: No edema. Skin: General: Skin is warm. Findings: No rash or wound. Neurological: Mental Status: He is alert and oriented to person, place, and time. Coordination: Coordination is intact. LABS: No results found for: GLUC , K , NA , CHLOR , CO2 , CREAT , BUN , ANION , CA , TPROT , ALB , TBILI , ALKPHOS , AST , ALT No results found for: HB , HCT , WBC No results found for: CHOL , HDL , LDL , TG EKG: I have provided a picture of today's EKG for your convenience and easy access. please note the interpretation on the EKG image is computer-generated and not the official interpretation DIAGNOSTIC RESULTS: ASSESSMENT/PLAN: Chronic diastolic HF (heart failure) (HCC) - ICD9: 428.32, ICD10: I50.32 (primary diagnosis) -Per echocardiogram 05/28/2022 patient has stage I diastolic dysfunction. - Discussed effects of diastolic dysfunction. I review the need and recommended simple lifestyle changes that may help manage this diastolic dysfunction. Lifestyles Modifications included those recommended through the [place] [employer]. - The [place] [employer] 7 guidelines and recommendations for management include (1) blood pressure, (2) cholesterol, (3) increased activity,(4) blood sugar management,(5) diet, (6) weight management, and (6) smoking cessation. -Will order echocardiogram for reevaluation due to fatigue and shortness of breath patient is experiencing 2. Essential hypertension - ICD9: 401.9, ICD10: I10 - suboptimal control -Currently taking carvedilol 25 mg twice daily -Currently taking hydrochlorothiazide 12.5 mg daily -Currently taking hydralazine 50 mg twice daily -Currently taking amlodipine 5 mg daily - Continue current medication(s) - Encouraged dietary sodium restriction/DASH diet - Recommended regular aerobic exercise. - Reviewed risks of HTN and principles of treatment - Goal of BP <140/90 3. History of echocardiogram - ICD9: V15.89, ICD10: Z92.89 -History of an echocardiogram 05/28/2022 -EF 55%. Mild concentric left ventricular hypertrophy. Stage 1 diastolic dysfunction. No regional wall motion abnormalities noted. 4. History of cardiac cath - ICD9: V45.89, ICD10: Z98.890 -History of a heart catheterization 01/21/2021 -Nonobstructive coronary arteries with coronary ectasia noted in the LAD and right coronary artery 5. History of stress test - ICD9: V15.89, ICD10: Z92.89 -History of a stress test 01/16/2021 -EF 71%; evidence of probable inferior myocardial ischemia 6. Never smoked cigarettes - ICD9: V49.89, ICD10: Z78.9 Milena Herman APRN.CNP Follow up in: 9 months -diastolic HF Greater than 50% of this > 20 minute visit was spent face to face discussing current diagnosis and treatment plan consisting of above outlined plan. Follow-up as documented above. I have discussed the recommended treatment, alternative treatments and other treatment options in detail. I have discussed the risks, benefits and side effect of the recommended treatment. I have attempted to answer all their questions to their satisfaction and understanding of the explanation has been voiced. With approval we will pursue the recommended treatment. During this office visit I reviewed the patients previous Cardiac testing and procedures results and reviewed the results with the patient. I, Milena Herman CNP have reviewed and agree with the information in the medical record transcribed by Jonas Gan MA. Milena Herman APRN.[facility] This patient note was partially generated from using the [employer] voice recognition system. There may be some incorrect words, spelling, and punctuation that were not noted in checking the note prior to saving documented in this encounter [facility] 01-19-2024 History of Presen t illness Narrative Images from the original note were not included. [facility] [address] [place] [address] [facility] [address] Dept: [phone] Dept Loc: [phone] Visit type: Established Patient Reason for Visit: Follow-up and Parkinson's Disease Assessment and Plan 1. Parkinson's disease with fluctuating manifestations, unspecified whether dyskinesia present (HCC) - carbidopa-levodopa (Sinemet) 25-100 MG tablet; Take 1 tablet by mouth every 8 hours as needed (tremors). With the carb-levo CR 50/200, Starting Thu01/19/2024, Until Thu01/18/2025 at 2359, Normal - carbidopa-levodopa CR (Sinemet CR) 50-200 MG ER tablet; Take 1 tablet by mouth 3 times daily. Do not crush or chew., Starting Thu01/19/2024, Until Thu04/18/2024, Normal 2. Essential tremor - primidone (Mysoline) 50 MG tablet; Take 2 tabs po QAM and 3 tabs po QPM, Normal Subjective HPI: He reports that he is taking the carb-levo 50/200 with out side effects. In fact he has added a 25/100 immed release in the AM to get better control of the tremors. He reports that this helps. He denies falls. He denies trouble swallowing. REVIEW OF SYSTEMS: Review of Systems Constitutional: Positive for fatigue. Negative for appetite change, chills, diaphoresis, fever and unexpected weight change. HENT: Negative for dental problem and mouth sores. Eyes: Negative for discharge and itching. Respiratory: Negative for chest tightness and shortness of breath. Cardiovascular: Negative for chest pain, palpitations and leg swelling. Gastrointestinal: Negative for abdominal pain, nausea, rectal pain and vomiting. Endocrine: Negative for polydipsia, polyphagia and polyuria. Genitourinary: Negative for decreased urine volume, flank pain and genital sores. Musculoskeletal: Positive for back pain. Negative for arthralgias and neck pain. Skin: Negative for color change. Allergic/Immunologic: Negative for food allergies and immunocompromised state. Neurological: Positive for dizziness, tremors and weakness. Negative for syncope, light-headedness and headaches. Hematological: Negative for adenopathy. Does not bruise/bleed easily. Psychiatric/Behavioral: Negative for agitation, behavioral problems, confusion, decreased concentration, sleep disturbance and suicidal ideas. Allergies Allergen Reactions Allopurinol Other reaction(s): Possible cause of rash on legs: went away after stopping Clindamycin Propranolol Leg edema Simvastatin Other reaction(s): myalgia Sulfa Antibiotics Current Outpatient Medications: amLODIPine (Norvasc) 5 MG tablet, Take by mouth daily., Disp: , Rfl: betamethasone, augmented, (Diprolene AF) 0.05 % cream, APPLY TO THE AREAS OF RASH ON THE LEGS DAILY NEEDED, Disp: , Rfl: carvedilol (Coreg) 25 MG tablet, 25 mg in the morning and 25 mg in the evening., Disp: , Rfl: cholecalciferol (Vitamin D-3) 50 MCG (1999 UT) capsule, Take by mouth., Disp: , Rfl: Cyanocobalamin (VITAMIN B 12 PO), Take by mouth., Disp: , Rfl: Ferrous Sulfate (SLOW FE PO), Take by mouth., Disp: , Rfl: hydrALAZINE (Apresoline) 50 MG tablet, Take 50 mg by mouth in the morning and 50 mg in the evening., Disp: , Rfl: hydroCHLOROthiazide (Microzide) 12.5 MG capsule, Take 12.5 mg by mouth daily. Takes 1 tab every other day., Disp: , Rfl: magnesium gluconate 250 MG tablet, 250 mg., Disp: , Rfl: magnesium oxide (Mag-Ox) 400 MG tablet, Take 250 mg by mouth daily., Disp: , Rfl: pramipexole (Mirapex) 0.25 MG tablet, Take 1 tablet (0.25 mg) by mouth Nightly., Disp: 90 tablet, Rfl: 3 Ascorbic Acid (vitamin C) 1000 MG tablet, Take 1 tablet (1,000 mg) by mouth with evening meal. And a meal, Disp: 90 tablet, Rfl: 3 carbidopa-levodopa (Sinemet) 25-100 MG tablet, Take 1 tablet by mouth every 8 hours as needed (tremors). With the carb-levo CR 50/200, Disp: 270 tablet, Rfl: 3 carbidopa-levodopa CR (Sinemet CR) 50-200 MG ER tablet, Take 1 tablet by mouth 3 times daily. Do not crush or chew., Disp: 270 tablet, Rfl: 3 hydrALAZINE (Apresoline) 10 MG tablet, Take 10 mg by mouth in the morning and 10 mg in the evening., Disp: , Rfl: hydrALAZINE (Apresoline) 50 MG tablet, Take by mouth., Disp: , Rfl: primidone (Mysoline) 50 MG tablet, Take 2 tabs po QAM and 3 tabs po QPM, Disp: 450 tablet, Rfl: 3 Past Medical History: Diagnosis Date Back pain Cancer (CMS/HCC) (HCC) HL (hearing loss) Hypertension Lumbar stenosis Parkinson's disease (HCC) Sleep apnea Testicular cancer (HCC) Testicular carcinoma, right (HCC) Tremor Social History Tobacco Use Smoking status: Never Smokeless tobacco: Never Substance Use Topics Alcohol use: Never Past Surgical History: Procedure Laterality Date HERNIA REPAIR 01/07/2023 OTHER SURGICAL HISTORY back injections TONSILLECTOMY (HISTORICAL) TUMOR REMOVAL VASCULAR SURGERY No family history on file. Objective Vitals: BP (!) 159/83 (BP Location: Right arm, Patient Position: Sitting, BP Cuff Size: Adult) Pulse 59 Ht 5' 8.5 (1.74 m) Wt 226 lb 3.2 oz (103 kg) BMI 33.89 kg/m General Appearance: Patient is in no apparent distress. Head is normocephalic, atraumatic Cardiovascular: Regular rate and rhythm. No heart murmurs. No carotid bruit Neurologic: Mentation: Alert and oriented x 3 to person, place and time. Speech and Language: Speech and language normal Concentration and Attention: Concentration normal Memory: Memory grossly normal Fund of Knowledge: Fund of knowledge normal Cranial Nerves: II, III, IV, V, , VII, VIII, IX, X, XI, XII examined and were intact. Motor: Strength: Strength 5 out of 5 with normal tone Alternating Movements: Normal Cogwheel Rigidity: Present bilaterally. Tone: Tone is normal Tremor / Involuntary Movements: He has the head titubation as he had from the starts. He has resting tremor in the right arm/hand. He has tremor in his voice. On holing his hands out he has the original vertical high frequency tremor mixed with the torsional tremor. Deep Tendon Reflexes: 1 out of 4 symmetrical in all four limbs. Coordination: Normal coordination upper and lower extremities Gait and Station: Station is normal. Gait is abnormal due to decreased right arm swing with torsional tremor. Data Reviewed and Summarized DIAGNOSTIC TESTING CBC: No results found for: WBC , RBC , HGB , HCT , MCV , MCH , MCHC , RDW , PLT , MPV CMP: No results found for: NA , K , CL , CO2 , BUN , CREATININE , AGRATIO , LABGLOM , GLUCOSE , GLU , PROT , CALCIUM , BILITOT , ALKPHOS , AST , ALT BMP: No results found for: NA , K , CL , CO2 , BUN , CREATININE , CALCIUM , LABGLOM , GLUCOSE , GLU PT/INR: No results found for: PROTIME , INR PTT: No results found for: APTT , PTT [APTT} FLP: No results found for: CHLPL , TRIG , HDL , LDLCALC , LDLDIRECT TSH: No results found for: TSH VITAMIN B12: No results found for: [id number] No results found for: PHENYTOIN , PHENOBARB , VALPROATE , CBMZ No components found for: TOPIRA @RESULTINGLABINFO@ No results found for: LEVETIRACETA , FERRITIN , CRP , MARTA , ANCA No results found for: JUAREZ , IMMUNOGLOBUL , OLIGOBANDS No results found for: [id number] , HEPCAB No results found for: CRP , ANATITER , ANCA FERRITIN: No results found for: FERRITIN ---- No image results found. IMPRESSION and PLAN: Diagnosis Plan 1. Parkinson's disease with fluctuating manifestations, unspecified whether dyskinesia present (HCC) carbidopa-levodopa (Sinemet) 25-100 MG tablet carbidopa-levodopa CR (Sinemet CR) 50-200 MG ER tablet 2. Essential tremor primidone (Mysoline) 50 MG tablet The patient is to continue the Sinemet 50/200 TID. I am fine with him using 25/100 immed release q8 hours prn with the 50/200 CR. Pramipexole at night. He started with ET before he developed PD. I am going to leave primidone alone for now. We did discuss possibly going elsewhere for consult regarding deep brain stimulator. RALPH NORIEGA MD I spent 30 minutes caring for this patient today, reviewing labs, records, seeing the patient, documenting in the record and arranging for studies. documented in this encounter [facility] 10-30-2023 Miscellaneous Notes Cath in 2020 with trace cad The risk of mi is very low EKG is May was normal Can come in today for EKG since very low risk Please advise. Patient's called in stating the patient was at [facility] in [place] with left arm pain and his BP was extremely high. The patient's is wondering if he should come in and see you because of him having this left arm pain and this was the 2nd incident that this happened. documented in this encounter [facility] 10-29-2023 History of Presen t illness Narrative Images from the original note were not included. [facility] [address] [place] [address] [facility] [address] Dept: [phone] Dept Loc: [phone] Visit type: Established Patient Reason for Visit: Follow-up and Parkinson's Disease Assessment and Plan 1. Parkinson's disease with fluctuating manifestations, unspecified whether dyskinesia present 2. Essential tremor 3. Myalgia Subjective HPI: He reports that he is not noticing any improvement in the tremor since decreasing the carb-levo. He is not having any improvement in walking either. He reports that he is having periods of weakness. He has pain in his arms and legs that he reports is muscle pain. He reports that he is having pain in the posterior muscles of both legs. He reports sometimes has lower back pain but that is very infrequent. He reports that he is on a potassium binding medication because his potassium levels are running high. Also has myalgia in the left biceps. REVIEW OF SYSTEMS: Review of Systems Constitutional: Positive for fatigue. Negative for appetite change, chills, diaphoresis, fever and unexpected weight change. HENT: Negative for dental problem and mouth sores. Eyes: Negative for discharge and itching. Respiratory: Negative for chest tightness and shortness of breath. Cardiovascular: Negative for chest pain, palpitations and leg swelling. Gastrointestinal: Negative for abdominal pain, nausea, rectal pain and vomiting. Endocrine: Negative for polydipsia, polyphagia and polyuria. Genitourinary: Negative for decreased urine volume, flank pain and genital sores. Musculoskeletal: Positive for back pain. Negative for arthralgias and neck pain. Skin: Negative for color change. Allergic/Immunologic: Negative for food allergies and immunocompromised state. Neurological: Positive for dizziness, tremors and weakness. Negative for syncope, light-headedness and headaches. Hematological: Negative for adenopathy. Does not bruise/bleed easily. Psychiatric/Behavioral: Negative for agitation, behavioral problems, confusion, decreased concentration, sleep disturbance and suicidal ideas. Allergies Allergen Reactions Allopurinol Other reaction(s): Possible cause of rash on legs: went away after stopping Clindamycin Propranolol Leg edema Simvastatin Other reaction(s): myalgia Sulfa Antibiotics Current Outpatient Medications: amLODIPine (Norvasc) 10 MG tablet, , Disp: , Rfl: Ascorbic Acid (VITAMIN C PO), Take 500 mg by mouth., Disp: , Rfl: Ascorbic Acid (vitamin C) 1000 MG tablet, Take 1 tablet (1,000 mg) by mouth with evening meal. And a meal, Disp: 90 tablet, Rfl: 3 carbidopa-levodopa (Sinemet) 25-100 MG tablet, Take 1 tablet by mouth 3 times daily., Disp: 270 tablet, Rfl: 3 carvedilol (Coreg) 25 MG tablet, 25 mg in the morning and 25 mg in the evening., Disp: , Rfl: cholecalciferol (Vitamin D-3) 50 MCG (2000 UT) capsule, Take by mouth., Disp: , Rfl: Cyanocobalamin (VITAMIN B 12 PO), Take by mouth., Disp: , Rfl: Ferrous Sulfate (SLOW FE PO), Take by mouth., Disp: , Rfl: hydrALAZINE (Apresoline) 50 MG tablet, Take by mouth., Disp: , Rfl: hydroCHLOROthiazide (Microzide) 12.5 MG capsule, Take 12.5 mg by mouth daily. Takes 1 tab every other day., Disp: , Rfl: magnesium gluconate 250 MG tablet, 250 mg., Disp: , Rfl: pramipexole (Mirapex) 0.25 MG tablet, Take 1 tablet (0.25 mg) by mouth Nightly., Disp: 90 tablet, Rfl: 3 primidone (Mysoline) 50 MG tablet, Take 2 tabs po QAM and 3 tabs po QPM, Disp: 450 tablet, Rfl: 1 aspirin 81 MG EC tablet, , Disp: , Rfl: betamethasone, augmented, (Diprolene AF) 0.05 % cream, APPLY TO THE AREAS OF RASH ON THE LEGS DAILY NEEDED, Disp: , Rfl: hydrALAZINE (Apresoline) 10 MG tablet, Take 10 mg by mouth in the morning and 10 mg in the evening., Disp: , Rfl: Lokelma 5 g packet, , Disp: , Rfl: magnesium oxide (Mag-Ox) 400 MG tablet, Take 250 mg by mouth daily., Disp: , Rfl: metaxalone (Skelaxin) 800 MG tablet, TAKE 1 TABLET BY MOUTH EVERY 8 HOURS NEEDED (TIGHTNESS, SPASMS IN LEGS), Disp: , Rfl: Patiromer Sorbitex Calcium (Veltassa) 8.4 g pack, Take by mouth., Disp: , Rfl: pramipexole (Mirapex) 0.25 MG tablet, Take 1 tablet (0.25 mg) by mouth in the morning and 1 tablet (0.25 mg) at noon and 1 tablet (0.25 mg) before bedtime., Disp: 270 tablet, Rfl: 1 Past Medical History: Diagnosis Date Back pain Cancer (CMS/HCC) (HCC) HL (hearing loss) Hypertension Lumbar stenosis Parkinson's disease Sleep apnea Testicular cancer (HCC) Testicular carcinoma, right (HCC) Tremor Social History Tobacco Use Smoking status: Never Smokeless tobacco: Never Substance Use Topics Alcohol use: Never Past Surgical History: Procedure Laterality Date HERNIA REPAIR 01/07/2023 OTHER SURGICAL HISTORY back injections TONSILLECTOMY (HISTORICAL) TUMOR REMOVAL VASCULAR SURGERY No family history on file. Objective Vitals: BP (!) 172/87 (BP Location: Right arm, Patient Position: Sitting, BP Cuff Size: Large adult) Pulse 64 Ht 5' 8.5 (1.74 m) Wt 232 lb 9.6 oz (106 kg) BMI 34.85 kg/m General Appearance: Patient is in no apparent distress. Head is normocephalic, atraumatic Cardiovascular: Regular rate and rhythm. No heart murmurs. No carotid bruit Neurologic: Mentation: Alert and oriented x 3 to person, place and time. Speech and Language: Speech and language normal Concentration and Attention: Concentration normal Memory: Memory grossly normal Fund of Knowledge: Fund of knowledge normal Cranial Nerves: II, III, IV, V, , VII, VIII, IX, X, XI, XII examined and were intact. Motor: Strength: Strength 5 out of 5 with normal tone Alternating Movements: Normal Cogwheel Rigidity: Present bilaterally. Tone: Tone is normal Tremor / Involuntary Movements: He has the head titubation as he had from the starts. He has resting tremor in the right arm/hand. He has tremor in his voice. On holing his hands out he has the original vertical high frequency tremor mixed with the torsional tremor. Deep Tendon Reflexes: 1 out of 4 symmetrical in all four limbs. Coordination: Normal coordination upper and lower extremities Gait and Station: Station is normal. Gait is abnormal due to decreased right arm swing with torsional tremor. Data Reviewed and Summarized DIAGNOSTIC TESTING CBC: No results found for: WBC , RBC , HGB , HCT , MCV , MCH , MCHC , RDW , PLT , MPV CMP: No results found for: NA , K , CL , CO2 , BUN , CREATININE , AGRATIO , LABGLOM , GLUCOSE , GLU , PROT , CALCIUM , BILITOT , ALKPHOS , AST , ALT BMP: No results found for: NA , K , CL , CO2 , BUN , CREATININE , CALCIUM , LABGLOM , GLUCOSE , GLU PT/INR: No results found for: PROTIME , INR PTT: No results found for: APTT , PTT [APTT} FLP: No results found for: CHLPL , TRIG , HDL , LDLCALC , LDLDIRECT TSH: No results found for: TSH VITAMIN B12: No results found for: [id number] No results found for: PHENYTOIN , PHENOBARB , VALPROATE , CBMZ No components found for: TOPIRA @RESULTINGLABINFO@ No results found for: LEVETIRACETA , FERRITIN , CRP , MARTA , ANCA No results found for: JUAREZ , IMMUNOGLOBUL , OLIGOBANDS No results found for: [id number] , HEPCAB No results found for: CRP , ANATITER , ANCA FERRITIN: No results found for: FERRITIN ---- No image results found. -[address], [facility] Patient Name: CAROLYN ABBOTT : 1950 Sex: M Billing Number: [id number] Order ID: [id number] Patient Type: E Patient Location: [facility] Attending: CHAYO LEIJA Consulting: Admitting: Admit Date: 10/27/2023 Discharge Date: Ordering: LEONARDO FONTAINE CBC Final Result Collected: 10/27/2023 16:50 Received: 10/27/2023 16:53 Test Name Result Ab Ref Range Units Site Comment WBC 4.6 4.5-10.8 10 3/mcL t Trend Quick Trend RBC 3.39 L 4.50-6.00 10 6/mcL t Trend Quick Trend Hgb 10.7 L 13.0-17.5 G/dL t Trend Quick Trend Hct 30.2 L 40.0-52.0 % t Trend Quick Trend MCV 89.3 81.0-100.0 fL t Trend Quick Trend MCH 31.5 27.0-33.0 pg t Trend Quick Trend MCHC 35.3 32.0-36.0 G/dL t Trend Quick Trend RDW 14.1 11.5-15.5 % t Trend Quick Trend Platelet 177 150-450 10 3/mcL t Trend Quick Trend MPV 7.8 6.4-10.5 fL t Trend Quick Trend .Auto Diff Final Result Collected: 10/27/2023 16:50 Received: 10/27/2023 16:53 Test Name Result Ab Ref Range Units Site Comment Lymphocyte % 21.0 20.0-40.0 % t Trend Quick Trend Monocyte % 8.0 2.0-13.0 % t Trend Quick Trend Neutrophil % 66.4 50.0-75.0 % t Trend Quick Trend Eosinophil % 3.3 0.0-6.0 % t Trend Quick Trend Basophil % 1.3 0.0-2.5 % t Trend Quick Trend Lymphocyte, Absolute 1.0 0.9-4.3 10 3/mcL t Trend Quick Trend Monocyte, Absolute 0.4 0.1-1.4 10 3/mcL t Trend Quick Trend Eosinophil, Absolute 0.2 0.0-0.7 10 3/mcL t Trend Quick Trend Basophil, Absolute 0.1 0.0-0.3 10 3/mcL t Trend Quick Trend .NEUABS Final Result Collected: 10/27/2023 16:50 Received: 10/27/2023 16:53 Test Name Result Ab Ref Range Units Site Comment Neutrophil, Absolute 3.0 2.3-8.1 10 3/mcL t Trend Quick Trend .MDW Final Result Collected: 10/27/2023 16:50 Received: 10/27/2023 16:53 Test Name Result Ab Ref Range Units Site Comment Monocyte Distribution Width 17.64 0.00-20.00 t For ED adult patients suspected of sepsis, MDW<=20.0 does not rule out sepsis or risk of sepsis Trend Quick Trend BMP Final Result Collected: 10/27/2023 16:50 Received: 10/27/2023 16:53 Test Name Result Ab Ref Range Units Site Comment Glucose Level 103 83-110 mg/dL t Trend Quick Trend Sodium Level 137 136-145 mmol/L t Trend Quick Trend Potassium Level 4.4 3.5-5.1 mmol/L t Trend Quick Trend Chloride 101 98-107 mmol/L t Trend Quick Trend CO2 28 23-31 mmol/L t Trend Quick Trend Electrolyte Balance 8.0 4.0-15.0 mEq/L t Trend Quick Trend BUN 47 H 7-18 mg/dL t Trend Quick Trend Creatinine Lvl (s) 1.69 H 0.70-1.30 mg/dL t Trend Quick Trend BUN/Creatinine Ratio 28 H 7-27 ratio t Trend Quick Trend Calcium Lvl 8.9 8.4-10.2 mg/dL t Trend Quick Trend .GFR Final Result Collected: 10/27/2023 16:50 Received: 10/27/2023 16:53 Test Name Result Ab Ref Range Units Site Comment GFR Non- 40 ml/min/1.73sqm t GFR Population mean for , Non- Americans Ages 20-29 = 116 mL/min/1.73 sq.m. Ages 30-39 = 107 mL/min/1.73 sq.m. Ages 40-49 = 99 mL/min/1.73 sq.m. Ages 50-59 = 93 mL/min/1.73 sq.m. Ages 60-69 = 85 mL/min/1.73 sq.m. Ages 70+ = 75 mL/min/1.73 sq.m. Chronic Kidney Disease: Less than 60 mL/min/1.73 square meters End Stage Renal Disease: Less than 15 mL/min/1.73 square meters Trend Quick Trend GFR 49 ml/min/1.73sqm t GFR Population mean for , Non- Americans Ages 20-29 = 116 mL/min/1.73 sq.m. Ages 30-39 = 107 mL/min/1.73 sq.m. Ages 40-49 = 99 mL/min/1.73 sq.m. Ages 50-59 = 93 mL/min/1.73 sq.m. Ages 60-69 = 85 mL/min/1.73 sq.m. Ages 70+ = 75 mL/min/1.73 sq.m. Chronic Kidney Disease: Less than 60 mL/min/1.73 square meters End Stage Renal Disease: Less than 15 mL/min/1.73 square meters Trend Quick Trend TROPHS Final Result Collected: 10/27/2023 16:50 Received: 10/27/2023 16:53 Test Name Result Ab Ref Range Units Site Comment Troponin I High Sensitivity 10.1 0.0-76.2 ng/L t Trend Quick Trend Testing Performed By: t: [facility], [address] [facility], [place], [place] [address] IMPRESSION and PLAN: Diagnosis Plan 1. Parkinson's disease with fluctuating manifestations, unspecified whether dyskinesia present 2. Essential tremor 3. Myalgia Cutting back on the carb-levo failed to help his other symptoms. Will go back up on the carb-levo to 50/200 TID. His first tremor. Continue the primidone. EMG/NCS study was discussed and he requested that I not order that today. RALPH NORIEGA MD I spent 30 minutes caring for this patient today, reviewing labs, records, seeing the patient, documenting in the record and arranging for studies. documented in this encounter [facility] 10-21-2023 Note HNO ID: [id number] Author: DAY ROD, DO Service: ? Author Type: Physician Type: Progress Notes Filed: 10/21/2023 09:37 Note Text: Carolyn Abbott is a 72 year old MALE who presents with Ear Problem (Right ear pain ear feels clogged 1 day) HPI PAST MEDICAL HISTORY Diagnosis Date Abnormal renal ultrasound 05/26/2022 No evidence of hemodynamically significant arterial stenosis, involving the right renal artery. Consistent with less than 60% stenosis. No evidence of hemodynamically significant arterial stenosis, involving the left renal artery. Consistent with less than 60% stenosis. Aortic stenosis 2019 Bilateral leg pain foward emg results to neuro when received; etiology unclear, but reassuring that activity actually improved the issue; possible differentials include funcitonal magnesium deficiency from his chronic use of diuretic therapy, soreness from uncontrolled leg movements that night, less likely radiculopathy/spinal stenosis- not unknown medication side effect and no med change. 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 History of echocardiogram 05/28/2022 EF 55%. Mild concentric left ventricular hypertrophy. Stage 1 diastolic dysfunction. No regional wall motion abnormalities noted. History of echocardiogram 11/26/2020 EF 65%. Normal LV size. Left ventricular systolic function is normal. Mild-moderate mitral annular calcification. Mild-moderate eccentric mitral valve insufficiency. Mild focal aortic valve calcification. Mild aortic stenosis. History of echocardiogram 01/27/2020 EF 60%. Normal LV size. Left ventricular systolic function is normal. Moderate focal aortic valve calcification. Stage 1 diastolic dysfunction. Pulmonary artery systolic pressure is 20 mmHg. History of echocardiogram 12/24/2015 EF 55%. Normal LV size. Mild concentric left ventricular hypertrophy. Left ventricular systolic function is normal. Transmitral and pulmonary venous doppler flow suggestive of impaired relaxation of left ventricle. Mild (1+) tricuspid valve insufficiency. History of prostate cancer 1980 Diagnosed in mid 1980s, with some adenopathy in the abdomen History of stress test 01/16/2021 EF 71% Evidence of probable inferior myocardial ischemia. Hypogonadism in male IFG (impaired fasting glucose) Joint pain Lumbar spinal stenosis Multiple acquired skin tags PATRICIO (obstructive sleep apnea) Parkinson's disease 2017 Polycystic kidney disease Polyneuropathy lower extremities, very mild, NCS 08/2021 Respiratory symptoms Valvular heart disease 2017 Vitamin D deficiency Vitreous degeneration ACTIVE PROBLEM LIST History of Echocardiogram Aortic Stenosis Abnormal Renal Ultrasound Patricio (Obstructive Sleep Apnea) History of Cardiac Cath Chronic Diastolic Hf (Heart Failure) (Hcc) Current Outpatient Medications Medication Sig Dispense Refill carvedilol (COREG) 25 mg tablet Take 1 tablet by mouth two times a day with meals. 180 tablet 2 hydroCHLOROthiazide 12.5 mg capsule Take 12.5 mg by mouth once daily. Ferrous Sulfate (SLOW FE) 142 mg (45 mg iron) TbER once daily. cyanocobalamin (VITAMIN B-12) 1,000 mcg tab Take 1,000 mcg by mouth once daily. amLODIPine (NORVASC) 10 mg tablet Take 1 tablet by mouth once daily. 90 tablet 3 primidone (MYSOLINE) 50 mg tablet Take 100 mg by mouth twice daily. aspirin, enteric coated (ASPIRIN, ENTERIC COATED) 81 mg EC tablet Take 81 mg by mouth once daily. bgimgojog-utytowam-pfyxiabrue (STALEVO 200) 50-200-200 mg per tablet Take 1 tablet by mouth three times daily. cloNIDine TTS (CATAPRES-TTS) 0.1 mg/24 hr once daily as needed. hydrALAZINE (APRESOLINE) 100 mg tablet Take 100 mg by mouth three times daily. MAGNESIUM GLUCONATE ORAL Take 500 mg by mouth once daily. pramipexole (MIRAPEX) 0.25 mg tablet Take 0.25 mg by mouth three times daily. ascorbic acid, vitamin C, (VITAMIN C) 500 mg tablet Take 1,500 mg by mouth once daily. ergocalciferol, vitamin D2, 50 mcg (2,000 unit) tab Take by mouth once daily. ixqnucip-dikfuxfwx-jvufavuxebferd (CORTISPORIN) 3.5-10,000-1 mg/mL-unit/mL-% otic suspension Use 4 Drops in both ears three times a day for 5 days. 3 mL 0 amoxicillin (AMOXIL) 875 mg tablet Take 1 tablet by mouth two times a day for 10 days. 20 tablet 0 levocetirizine 5 mg tablet Take 5 mg by mouth daily at bedtime. (Patient not taking: Reported on 06/12/2023) No current facility-administered medications for this visit. Social History Tobacco Use Smoking status: Never Smokeless tobacco: Never Substance Use Topics Alcohol use: Not Currently Drug use (more content not included)... [facility] 10-21-2023 History of Presen t illness Narrative Carolyn Abbott is a 72 year old MALE who presents with Ear Problem (Right ear pain ear feels clogged 1 day) HPI PAST MEDICAL HISTORY Diagnosis Date Abnormal renal ultrasound 05/26/2022 No evidence of hemodynamically significant arterial stenosis, involving the right renal artery. Consistent with less than 60% stenosis. No evidence of hemodynamically significant arterial stenosis, involving the left renal artery. Consistent with less than 60% stenosis. Aortic stenosis 2019 Bilateral leg pain foward emg results to neuro when received; etiology unclear, but reassuring that activity actually improved the issue; possible differentials include funcitonal magnesium deficiency from his chronic use of diuretic therapy, soreness from uncontrolled leg movements that night, less likely radiculopathy/spinal stenosis- not unknown medication side effect and no med change. 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 History of echocardiogram 05/28/2022 EF 55%. Mild concentric left ventricular hypertrophy. Stage 1 diastolic dysfunction. No regional wall motion abnormalities noted. History of echocardiogram 11/26/2020 EF 65%. Normal LV size. Left ventricular systolic function is normal. Mild-moderate mitral annular calcification. Mild-moderate eccentric mitral valve insufficiency. Mild focal aortic valve calcification. Mild aortic stenosis. History of echocardiogram 01/27/2020 EF 60%. Normal LV size. Left ventricular systolic function is normal. Moderate focal aortic valve calcification. Stage 1 diastolic dysfunction. Pulmonary artery systolic pressure is 20 mmHg. History of echocardiogram 12/24/2015 EF 55%. Normal LV size. Mild concentric left ventricular hypertrophy. Left ventricular systolic function is normal. Transmitral and pulmonary venous doppler flow suggestive of impaired relaxation of left ventricle. Mild (1+) tricuspid valve insufficiency. History of prostate cancer 1980 Diagnosed in mid 1980s, with some adenopathy in the abdomen History of stress test 01/16/2021 EF 71% Evidence of probable inferior myocardial ischemia. Hypogonadism in male IFG (impaired fasting glucose) Joint pain Lumbar spinal stenosis Multiple acquired skin tags PATRICIO (obstructive sleep apnea) Parkinson's disease 2017 Polycystic kidney disease Polyneuropathy lower extremities, very mild, NCS 08/2021 Respiratory symptoms Valvular heart disease 2017 Vitamin D deficiency Vitreous degeneration ACTIVE PROBLEM LIST History of Echocardiogram Aortic Stenosis Abnormal Renal Ultrasound Patricio (Obstructive Sleep Apnea) History of Cardiac Cath Chronic Diastolic Hf (Heart Failure) (Hcc) Current Outpatient Medications Medication Sig Dispense Refill carvedilol (COREG) 25 mg tablet Take 1 tablet by mouth two times a day with meals. 180 tablet 2 hydroCHLOROthiazide 12.5 mg capsule Take 12.5 mg by mouth once daily. Ferrous Sulfate (SLOW FE) 142 mg (45 mg iron) TbER once daily. cyanocobalamin (VITAMIN B-12) 1,000 mcg tab Take 1,000 mcg by mouth once daily. amLODIPine (NORVASC) 10 mg tablet Take 1 tablet by mouth once daily. 90 tablet 3 primidone (MYSOLINE) 50 mg tablet Take 100 mg by mouth twice daily. aspirin, enteric coated (ASPIRIN, ENTERIC COATED) 81 mg EC tablet Take 81 mg by mouth once daily. qfnnuczbm-xrbpwrqj-lsbyuhvczh (STALEVO 200) 50-200-200 mg per tablet Take 1 tablet by mouth three times daily. cloNIDine TTS (CATAPRES-TTS) 0.1 mg/24 hr once daily as needed. hydrALAZINE (APRESOLINE) 100 mg tablet Take 100 mg by mouth three times daily. MAGNESIUM GLUCONATE ORAL Take 500 mg by mouth once daily. pramipexole (MIRAPEX) 0.25 mg tablet Take 0.25 mg by mouth three times daily. ascorbic acid, vitamin C, (VITAMIN C) 500 mg tablet Take 1,500 mg by mouth once daily. ergocalciferol, vitamin D2, 50 mcg (2,000 unit) tab Take by mouth once daily. fqgvuzrf-vyofhjatc-nevmzjapaolidp (CORTISPORIN) 3.5-10,000-1 mg/mL-unit/mL-% otic suspension Use 4 Drops in both ears three times a day for 5 days. 3 mL 0 amoxicillin (AMOXIL) 875 mg tablet Take 1 tablet by mouth two times a day for 10 days. 20 tablet 0 levocetirizine 5 mg tablet Take 5 mg by mouth daily at bedtime. (Patient not taking: Reported on 06/12/2023) No current facility-administered medications for this visit. Social History Tobacco Use Smoking status: Never Smokeless tobacco: Never Substance Use Topics Alcohol use: Not Currently Drug use: Never Alcohol Use: Not Currently Tobacco Use: Never FAMILY HISTORY Problem Relation Age of Onset Diabetes Mother Hypertension Mother Diabetes Father Hypertension Father Heart Attack Father Heart disease Father Diabetes Sister Hypertension Sister Cancer Brother Heart disease Brother Hypertension Brother No Known Problems Paternal Grandfather Review of Systems Constitutional: Positive for chills and fever. HENT: Positive for ear pain. All other systems reviewed and are negative. BP 140/90 Pulse 70 Temp 98.4 Resp 16 Wt 231 lb (104.8kg) SpO2 97% Physical Exam Vitals and nursing note reviewed. Constitutional: Appearance: Normal appearance. HENT: Head: Normocephalic. Ears: Comments: Examination of the ears bilaterally shows otitis externa. The right ear is swollen until just about 1 to 2 mm opening his left. The left ear is open to normal size. Looking in the right ear it he is very tender and there is a lot of debris in the canal suggestive of otitis externa. Nose: Congestion present. Mouth/Throat: Mouth: Mucous membranes are moist. Eyes: Extraocular Movements: Extraocular movements intact. Pupils: Pupils are equal, round, and reactive to light. Cardiovascular: Rate and Rhythm: Normal rate. Heart sounds: Murmur (Holosystolic) heard. Pulmonary: Effort: Pulmonary effort is normal. Breath sounds: Normal breath sounds. Musculoskeletal: General: Normal range of motion. Cervical back: Normal range of motion. Skin: General: Skin is warm. Capillary Refill: Capillary refill takes 2 to 3 seconds. Neurological: General: No focal deficit present. Psychiatric: Mood and Affect: Mood normal. ASSESSMENT/PLAN: 1. Acute otitis externa of both ears, unspecified type - ICD9: 380.10, ICD10: H60.503 - [id number] 3.5 MG-10,000 UNIT/ML-1 % EAR DROPS,SUSP - AMOXICILLIN 875 MG TABLET Day Rod documented in this encounter [facility] 07-28-2023 History of Presen t illness Narrative Images from the original note were not included. [facility] [address] [facility] [address] Dept: [phone] Dept Loc: [phone] Visit type: Established Patient Reason for Visit: Follow-up and Parkinson's Disease Assessment and Plan 1. Parkinson's disease with fluctuating manifestations, unspecified whether dyskinesia present 2. Essential tremor Subjective HPI: He reports that he is having periods of the day where he feels very fatigued. He denies freezing. He denies falls. He reports that his tremor is about the same. He reports that this fatigue is in late AM or afternoon/early evening. He reports that twice he tried the immediate release carb-levo without improvement. He reduced the pramipexole to at night only. The patient reports excessive daytime sleepiness. He is seeing Dr. Giang. He is getting oxygen at night. He is wearing CPAP. His security nurse and kidney doctor said he looks good. He saw Dr. Giang two weeks ago. Snore? Not with the CPAP on, but yes without it. Tired? Yes Obstructive apneas? Yes Blood Pressure meds? Yes BMI over 28? Yes Age over 50? Yes Neck more than 17 in? Yes Gender male? Yes STOP BANG score of 8. REVIEW OF SYSTEMS: Review of Systems Constitutional: Positive for fatigue. Negative for appetite change, chills, diaphoresis, fever and unexpected weight change. HENT: Negative for dental problem and mouth sores. Eyes: Negative for discharge and itching. Respiratory: Negative for chest tightness and shortness of breath. Cardiovascular: Negative for chest pain, palpitations and leg swelling. Gastrointestinal: Negative for abdominal pain, nausea, rectal pain and vomiting. Endocrine: Negative for polydipsia, polyphagia and polyuria. Genitourinary: Negative for decreased urine volume, flank pain and genital sores. Musculoskeletal: Positive for back pain. Negative for arthralgias and neck pain. Skin: Negative for color change. Allergic/Immunologic: Negative for food allergies and immunocompromised state. Neurological: Positive for dizziness, tremors and weakness. Negative for syncope, light-headedness and headaches. Hematological: Negative for adenopathy. Does not bruise/bleed easily. Psychiatric/Behavioral: Negative for agitation, behavioral problems, confusion, decreased concentration, sleep disturbance and suicidal ideas. Allergies Allergen Reactions Allopurinol Other reaction(s): Possible cause of rash on legs: went away after stopping Clindamycin Propranolol Leg edema Simvastatin Other reaction(s): myalgia Sulfa Antibiotics Current Outpatient Medications: amLODIPine (Norvasc) 10 MG tablet, , Disp: , Rfl: Ascorbic Acid (VITAMIN C PO), Take 500 mg by mouth., Disp: , Rfl: Ascorbic Acid (vitamin C) 1000 MG tablet, Take 1 tablet (1,000 mg) by mouth with evening meal. And a meal, Disp: 90 tablet, Rfl: 3 betamethasone, augmented, (Diprolene AF) 0.05 % cream, APPLY TO THE AREAS OF RASH ON THE LEGS DAILY NEEDED, Disp: , Rfl: carbidopa-levodopa (Sinemet) 25-100 MG tablet, Take 1 tablet by mouth every 8 hours as needed (worsening Parkinson's tremor)., Disp: 90 tablet, Rfl: 0 carbidopa-levodopa CR (Sinemet CR) 50-200 MG ER tablet, Take 1 tablet by mouth 3 times daily. Do not crush or chew., Disp: 270 tablet, Rfl: 3 carvedilol (Coreg) 25 MG tablet, 25 mg in the morning and 25 mg in the evening., Disp: , Rfl: cholecalciferol (Vitamin D-3) 50 MCG (2000 UT) capsule, Take by mouth., Disp: , Rfl: Ferrous Sulfate (SLOW FE PO), Take by mouth., Disp: , Rfl: hydrALAZINE (Apresoline) 50 MG tablet, Take by mouth., Disp: , Rfl: hydroCHLOROthiazide (Microzide) 12.5 MG capsule, Take 12.5 mg by mouth daily. Takes 1 tab every other day., Disp: , Rfl: magnesium gluconate 250 MG tablet, 250 mg., Disp: , Rfl: Patiromer Sorbitex Calcium (Veltassa) 8.4 g pack, Take by mouth., Disp: , Rfl: pramipexole (Mirapex) 0.25 MG tablet, Take 1 tablet (0.25 mg) by mouth in the morning and 1 tablet (0.25 mg) at noon and 1 tablet (0.25 mg) before bedtime., Disp: 270 tablet, Rfl: 1 primidone (Mysoline) 50 MG tablet, TAKE 2 TABLETS TWICE A DAY, Disp: 360 tablet, Rfl: 1 aspirin 81 MG EC tablet, , Disp: , Rfl: Cyanocobalamin (VITAMIN B 12 PO), Take by mouth., Disp: , Rfl: hydrALAZINE (Apresoline) 10 MG tablet, Take 10 mg by mouth in the morning and 10 mg in the evening., Disp: , Rfl: Lokelma 5 g packet, , Disp: , Rfl: magnesium oxide (Mag-Ox) 400 MG tablet, Take 250 mg by mouth daily., Disp: , Rfl: metaxalone (Skelaxin) 800 MG tablet, TAKE 1 TABLET BY MOUTH EVERY 8 HOURS NEEDED (TIGHTNESS, SPASMS IN LEGS), Disp: , Rfl: pramipexole (Mirapex) 0.25 MG tablet, Take 1 tablet (0.25 mg) by mouth 3 times daily., Disp: 270 tablet, Rfl: 2 Past Medical History: Diagnosis Date Back pain Cancer (CMS/HCC) (HCC) HL (hearing loss) Hypertension Lumbar stenosis Parkinson's disease Sleep apnea Testicular cancer (HCC) Testicular carcinoma, right (HCC) Tremor Social History Tobacco Use Smoking status: Never Smokeless tobacco: Never Substance Use Topics Alcohol use: Never Past Surgical History: Procedure Laterality Date HERNIA REPAIR 01/07/2023 OTHER SURGICAL HISTORY back injections TONSILLECTOMY (HISTORICAL) TUMOR REMOVAL VASCULAR SURGERY No family history on file. Objective Vitals: BP (!) 159/83 (BP Location: Right arm, Patient Position: Sitting, BP Cuff Size: Adult) Pulse 61 Ht 5' 8.5 (1.74 m) Wt 225 lb 9.6 oz (102 kg) BMI 33.80 kg/m General Appearance: Patient is in no apparent distress. Head is normocephalic, atraumatic Cardiovascular: Regular rate and rhythm. No heart murmurs. No carotid bruit Neurologic: Mentation: Alert and oriented x 3 to person, place and time. Speech and Language: Speech and language normal Concentration and Attention: Concentration normal Memory: Memory normal Fund of Knowledge: Fund of knowledge normal Cranial Nerves: II, III, IV, V, , VII, VIII, IX, X, XI, XII examined and were intact. Motor: Strength: Strength 5 out of 5 with normal tone Alternating Movements: Normal Cogwheel Rigidity: None Tone: Tone is normal Tremor / Involuntary Movements: Mostly the original vertical tremor in the hands with posture. Mild in the extended legs. He has head titubation Deep Tendon Reflexes: 1 out of 4 symmetrical in all four limbs. Coordination: Normal coordination upper and lower extremities Gait and Station: Station is normal. Gait is nearly normal with just a little decreased left arm swing. Data Reviewed and Summarized DIAGNOSTIC TESTING CBC: No results found for: WBC , RBC , HGB , HCT , MCV , MCH , MCHC , RDW , PLT , MPV CMP: No results found for: NA , K , CL , CO2 , BUN , CREATININE , AGRATIO , LABGLOM , GLUCOSE , GLU , PROT , CALCIUM , BILITOT , ALKPHOS , AST , ALT BMP: No results found for: NA , K , CL , CO2 , BUN , CREATININE , CALCIUM , LABGLOM , GLUCOSE , GLU PT/INR: No results found for: PROTIME , INR PTT: No results found for: APTT , PTT [APTT} FLP: No results found for: CHLPL , TRIG , HDL , LDLCALC , LDLDIRECT TSH: No results found for: TSH VITAMIN B12: No results found for: [id number] No results found for: PHENYTOIN , PHENOBARB , VALPROATE , CBMZ No components found for: TOPIRA @RESULTINGLABINFO@ No results found for: LEVETIRACETA , FERRITIN , CRP , MARTA , ANCA No results found for: JUAREZ , IMMUNOGLOBUL , OLIGOBANDS No results found for: [id number] , HEPCAB No results found for: CRP , ANATITER , ANCA FERRITIN: No results found for: FERRITIN ---- No image results found. IMPRESSION and PLAN: Diagnosis Plan 1. Parkinson's disease with fluctuating manifestations, unspecified whether dyskinesia present 2. Essential tremor Carb-levo CR 50/200 TID. Will add carb-levo IR 25/100 Q8 hours prn. His original tremor and still the source of the head titubation. Continue the primidone. I advised him to take the iron supplement with a meal and 1000 mg of vitamin C to reduce constipation. RALPH NORIEGA MD I spent 30 minutes caring for this patient today, reviewing labs, records, seeing the patient, documenting in the record and arranging for studies. documented in this encounter [facility] 06-13-2023 Evaluation note Diagnosis Hypertension, unspecified type- Primary Stage 3a chronic kidney disease (HCC) Hyperlipidemia LDL goal <70 Other and unspecified hyperlipidemia PATRICIO (obstructive sleep apnea) Obstructive sleep apnea (adult) (pediatric) Chronic diastolic congestive heart failure (HCC) Chronic diastolic heart failure History of echocardiogram Other specified personal history presenting hazards to health History of cardiac cath Other postprocedural status History of stress test Other specified conditions influencing health status Non-smoker Other specified conditions influencing health status documented in this encounter [facility]10-13-2023 NoteHNO ID: [id number] Author: Milton Basilio, DO Service: ? Author Type: Physician Type: Progress Notes Filed: 06/13/2023 5:15 AM Note Text: Referring Provider: No ref. provider found Date: June 12, 2023 Chief Complaint: Established Patient Follow-Up (6 month follow up, hx of HTN. /) HISTORY OF PRESENT ILLNESS: Carolyn Abbott is a 72 year old male who presents for Established Patient Follow-Up (6 month follow up, hx of HTN. ). ALLERGIES Allergen Reactions Clindamycin Swelling Sulfa (Sulfonamide * Unknown PAST MEDICAL HISTORY: PAST MEDICAL HISTORY Diagnosis Date Abnormal renal ultrasound 05/26/2022 No evidence of hemodynamically significant arterial stenosis, involving the right renal artery. Consistent with less than 60% stenosis. No evidence of hemodynamically significant arterial stenosis, involving the left renal artery. Consistent with less than 60% stenosis. Aortic stenosis 2019 Bilateral leg pain foward emg results to neuro when received; etiology unclear, but reassuring that activity actually improved the issue; possible differentials include funcitonal magnesium deficiency from his chronic use of diuretic therapy, soreness from uncontrolled leg movements that night, less likely radiculopathy/spinal stenosis- not unknown medication side effect and no med change. 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 History of echocardiogram 05/28/2022 EF 55%. Mild concentric left ventricular hypertrophy. Stage 1 diastolic dysfunction. No regional wall motion abnormalities noted. History of echocardiogram 11/26/2020 EF 65%. Normal LV size. Left ventricular systolic function is normal. Mild-moderate mitral annular calcification. Mild-moderate eccentric mitral valve insufficiency. Mild focal aortic valve calcification. Mild aortic stenosis. History of echocardiogram 01/27/2020 EF 60%. Normal LV size. Left ventricular systolic function is normal. Moderate focal aortic valve calcification. Stage 1 diastolic dysfunction. Pulmonary artery systolic pressure is 20 mmHg. History of echocardiogram 12/24/2015 EF 55%. Normal LV size. Mild concentric left ventricular hypertrophy. Left ventricular systolic function is normal. Transmitral and pulmonary venous doppler flow suggestive of impaired relaxation of left ventricle. Mild (1+) tricuspid valve insufficiency. History of prostate cancer 1980 Diagnosed in mid 1980s, with some adenopathy in the abdomen History of stress test 01/16/2021 EF 71% Evidence of probable inferior myocardial ischemia. Hypogonadism in male IFG (impaired fasting glucose) Joint pain Lumbar spinal stenosis Multiple acquired skin tags PATRICIO (obstructive sleep apnea) Parkinson's disease 2017 Polycystic kidney disease Polyneuropathy lower extremities, very mild, NCS 08/2021 Respiratory symptoms Valvular heart disease 2017 Vitamin D deficiency Vitreous degeneration PAST SURGICAL HISTORY Procedure Laterality Date REPAIR EPIGASTRIC HERNIA,REDUC 12/2022 ULTRASOUND GUIDANCE FOR VENOUS ABLATION FAMILY HISTORY Problem Relation Age of Onset Diabetes Mother Hypertension Mother Diabetes Father Hypertension Father Heart Attack Father Heart disease Father Diabetes Sister Hypertension Sister Cancer Brother Heart disease Brother Hypertension Brother No Known Problems Paternal Grandfather SOCIAL HISTORY: Tobacco Use: Never Alcohol Use: Not Currently Drug Use: Never Employer And Job Title: None on file Years Of Education Completed: Not specified Marital Status: MEDICATIONS: Current Outpatient Medications Medication Sig amLODIPine (NORVASC) 10 mg tablet Take 1 tablet by mouth once daily. ascorbic acid, vitamin C, (VITAMIN C) 500 mg tablet Take 1,500 mg by mouth once daily. aspirin, enteric coated (ASPIRIN, ENTERIC COATED) 81 mg EC tablet Take 81 mg by mouth once daily. fygfqmmeu-arfegtaw-pxjoagqlpr (STALEVO 200) 50-200-200 mg per tablet Take 1 tablet by mouth three times daily. carvedilol (COREG) 25 mg tablet Take 1 tablet by mouth twice daily with meals. cloNIDine TTS (CATAPRES-TTS) 0.1 mg/24 hr once daily as needed. cyanocobalamin (VITAMIN B-12) 1,000 mcg tab Take 1,000 mcg by mouth once daily. ergocalciferol, vitamin D2, 50 mcg (2,000 unit) tab Take by mouth once daily. Ferrous Sulfate (SLOW FE) 142 mg (45 mg iron) TbER once daily. hydrALAZINE (APRESOLINE) 100 mg tablet Take 100 mg by mouth three times daily. hydroCHLOROthiazide 12.5 mg capsule Take 12.5 mg by mouth once daily. levocetirizine 5 mg tablet Take 5 mg by mouth daily at (more content not included)...[id number] of Present illness Narrative* Milton Basilio DO - 06/12/2023 9:22 AM EDT Images from the original note were not included. Referring Provider: No ref. provider found Date: June 12, 2023 Chief Complaint: Established Patient Follow-Up (6 month follow up, hx of HTN. /) HISTORY OF PRESENT ILLNESS: Carolyn Abbott is a 72 year old male who presents for Established Patient Follow-Up (6 month follow up, hx of HTN. ). ALLERGIES Allergen Reactions Clindamycin Swelling Sulfa (Sulfonamide * Unknown PAST MEDICAL HISTORY: PAST MEDICAL HISTORY Diagnosis Date Abnormal renal ultrasound 05/26/2022 No evidence of hemodynamically significant arterial stenosis, involving the right renal artery. Consistent with less than 60% stenosis. No evidence of hemodynamically significant arterial stenosis, involving the left renal artery. Consistent with less than 60% stenosis. Aortic stenosis 2018 Bilateral leg pain foward emg results to neuro when received; etiology unclear, but reassuring that activity actually improved the issue; possible differentials include funcitonal magnesium deficiency from his chronic use of diuretic therapy, soreness from uncontrolled leg movements that night, less likely radiculopathy/spinal stenosis- not unknown medication side effect and no med change. 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 History of echocardiogram 05/28/2022 EF 55%. Mild concentric left ventricular hypertrophy. Stage 1 diastolic dysfunction. No regional wall motion abnormalities noted. History of echocardiogram 11/26/2020 EF 65%. Normal LV size. Left ventricular systolic function is normal. Mild- moderate mitral annular calcification. Mild-moderate eccentric mitral valve insufficiency. Mild focal aortic valve calcification. Mild aortic stenosis. History of echocardiogram 01/27/2020 EF 60%. Normal LV size. Left ventricular systolic function is normal. Moderate focal aortic valve calcification. Stage 1 diastolic dysfunction. Pulmonary artery systolic pressure is 20 mmHg. History of echocardiogram 12/24/2015 EF 55%. Normal LV size. Mild concentric left ventricular hypertrophy. Left ventricular systolic function is normal. Transmitral and pulmonary venous doppler flow suggestive of impaired relaxation of left ventricle. Mild (1+) tricuspid valve insufficiency. History of prostate cancer 1980 Diagnosed in mid 1980s, with some adenopathy in the abdomen History of stress test 01/16/2021 EF 71% Evidence of probable inferior myocardial ischemia. Hypogonadism in male IFG (impaired fasting glucose) Joint pain Lumbar spinal stenosis Multiple acquired skin tags PATRICIO (obstructive sleep apnea) Parkinson's disease 2017 Polycystic kidney disease Polyneuropathy lower extremities, very mild, NCS 08/2021 Respiratory symptoms Valvular heart disease 2017 Vitamin D deficiency Vitreous degeneration PAST SURGICAL HISTORY Procedure Laterality Date REPAIR EPIGASTRIC HERNIA,REDUC 12/2022 ULTRASOUND GUIDANCE FOR VENOUS ABLATION FAMILY HISTORY Problem Relation Age of Onset Diabetes Mother Hypertension Mother Diabetes Father Hypertension Father Heart Attack Father Heart disease Father Diabetes Sister Hypertension Sister Cancer Brother Heart disease Brother Hypertension Brother No Known Problems Paternal Grandfather SOCIAL HISTORY: Tobacco Use: Never Alcohol Use: Not Currently Drug Use: Never Employer And Job Title: None on file Years Of Education Completed: Not specified Marital Status: MEDICATIONS: Current Outpatient Medications Medication Sig amLODIPine (NORVASC) 10 mg tablet Take 1 tablet by mouth once daily. ascorbic acid, vitamin C, (VITAMIN C) 500 mg tablet Take 1,500 mg by mouth once daily. aspirin, enteric coated (ASPIRIN, ENTERIC COATED) 81 mg EC tablet Take 81 mg by mouth once daily. tciiepbhd-gatlowol-mjhdjqdlgt (STALEVO 200) 50-200-200 mg per tablet Take 1 tablet by mouth three times daily. carvedilol (COREG) 25 mg tablet Take 1 tablet by mouth twice daily with meals. cloNIDine TTS (CATAPRES-TTS) 0.1 mg/24 hr once daily as needed. cyanocobalamin (VITAMIN B-12) 1,000 mcg tab Take 1,000 mcg by mouth once daily. ergocalciferol, vitamin D2, 50 mcg (2,000 unit) tab Take by mouth once daily. Ferrous Sulfate (SLOW FE) 142 mg (45 mg iron) TbER once daily. hydrALAZINE (APRESOLINE) 100 mg tablet Take 100 mg by mouth three times daily. hydroCHLOROthiazide 12.5 mg capsule Take 12.5 mg by mouth once daily. levocetirizine 5 mg tablet Take 5 mg by mouth daily at bedtime. (Patient not taking: Reported on 06/12/2023) MAGNESIUM GLUCONATE ORAL Take 500 mg by mouth once daily. pramipexole (MIRAPEX) 0.25 mg tablet Take 0.25 mg by mouth three times daily. primidone (MYSOLINE) 50 mg tablet Take 100 mg by mouth twice daily. No current facility-administered medications for this visit. I have personally reviewed the patients past medical history including social, family, surgical, diagnostics, and medications. REVIEW OF SYSTEMS: Review of Systems Constitutional: Negative for chills and fatigue. Respiratory: Negative for chest tightness and shortness of breath. Cardiovascular: Negative for chest pain, palpitations and leg swelling. Neurological: Negative for dizziness, syncope, weakness and light-headedness. Hematological: Does not bruise/bleed easily. Psychiatric/Behavioral: Negative for confusion and hallucinations. Vitals: BP 138/90 (BP Site: Left Arm, BP Position: Sitting, BP Cuff Size: Regular Adult) Pulse 65 Ht 177.8 cm (5' 10 ) Wt 103.5 kg (228 lb 1.9 oz) BMI 32.73 kg/m PHYSICAL EXAMINATION: BP 138/90 (BP Site: Left Arm, BP Position: Sitting, BP Cuff Size: Regular Adult) Pulse 65 Ht 177.8 cm (5' 10 ) Wt 103.5 kg (228 lb 1.9 oz) BMI 32.73 kg/m Last 3 Encounter BP Readings: Date: BP: 12/11/2022 152/84 11/13/2022 152/82 10/16/2022 140/92 Last 3 Encounter Pulse Readings: Date: Pulse: 12/11/2022 62 11/13/2022 66 10/16/2022 64 Last 3 Encounter Wt Readings: Date: Wt: 11/13/2022 106.6 kg (235 lb) 10/16/2022 108.4 kg (239 lb) Physical Exam Vitals reviewed. Constitutional: General: He is not in acute distress. Cardiovascular: Rate and Rhythm: Normal rate and regular rhythm. Pulses: Carotid pulses are 2+ on the right side and 2+ on the left side. Radial pulses are 2+ on the right side and 2+ on the left side. Femoral pulses are 2+ on the right side and 2+ on the left side. Popliteal pulses are 2+ on the right side and 2+ on the left side. Dorsalis pedis pulses are 2+ on the right side and 2+ on the left side. Posterior tibial pulses are 2+ on the right side and 2+ on the left side. Heart sounds: Murmur heard. Systolic murmur is present with a grade of 2/6. Comments: PMI not displaced. 2nd heart sound loud. Pulmonary: Effort: Pulmonary effort is normal. Breath sounds: Normal breath sounds. Abdominal: General: Abdomen is flat. Bowel sounds are normal. Palpations: Abdomen is soft. Tenderness: There is no abdominal tenderness. Musculoskeletal: Right lower leg: No edema. Left lower leg: No edema. Skin: General: Skin is warm. Findings: No rash or wound. Neurological: Mental Status: He is alert and oriented to person, place, and time. Coordination: Coordination is intact. LABS: No results found for: GLUC , K , NA , CHLOR , CO2 , CREAT , BUN , ANION , CA , TPROT , ALB , TBILI , ALKPHOS , AST , ALT No results found for: HB , HCT , WBC No results found for: CHOL , HDL , LDL , TG EKG: ASSESSMENT/PLAN: 1. Hypertension, unspecified type - ICD9: 401.9, ICD10: I10 (primary diagnosis) Patient's blood pressure in the office today was recorded as 138/90. Target systolic BP 140 or lessand diastolic BP 90 or less. Continue current medications. - ECG COMPLETE 3. Hyperlipidemia LDL goal <70 - ICD9: 272.4, ICD10: E78.5 Patient is not currently taking any statin therapy. Patients last BW was 01/19/2019 and the LDL oui567. - Counseled on healthy diet and regular exercise 4. PATRICIO (obstructive sleep apnea) - ICD9: 327.23, ICD10: G47.33 Patient is faithful to CPAP. 5. Chronic diastolic congestive heart failure (HCC) - ICD9: 428.32, 428.0, ICD10: I50.32 Managed appropriately. Echo in 2018 demonstrates aortic sclerosis. Echocardiogram in 2021 demonstrated mild aortic stenosis valve area minimal. On today's examination auscultation demonstrates murmur sounds like 1.8 on exam. 6. History of echocardiogram - ICD9: V15.89, ICD10: Z92.89 Echo was done 05/28/2022 and showed EF 55%. Mild concentric left ventricular hypertrophy. Stage 1 diastolic dysfunction. No regional wall motion abnormalities noted. 7. History of cardiac cath - ICD9: V45.89, ICD10: Z98.890 Cath was done 01/21/2021 and showed Nonobstructive coronary arteries with coronary ectasia noted inthe LAD and right coronary artery. 8. History of stress test - ICD9: V15.89, ICD10: Z92.89 Stress Test was done 01/16/2021 and showed EF 71% Evidence of probable inferior myocardial ischemia. 9. Non-smoker - ICD9: V49.89, ICD10: Z78.9 Patient is a non-smoker. -Cleared for surgery from a cardiac standpoint. I, Priscila Maddox MA , scribing for Dr. Milton Basilio, was present in the room during the examination Follow up in: 9 months with Milena Herman APRN.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. Prior to entering the room, I reviewed the last progress note including the diagnosis and plan of action. When available, I then reviewed the last heart catheterization, stress test, echocardiogram and EKG. I proceeded to review the medial therapy and any side effects the patient may have had in the past. I was able to look at the last several EKGs. A new EKG was performed today and an interetation was performed. I reviewed its interpretation with the family and compared it to the previous EKGsthat we have in the medical records. Changes were described to the patient. In a pictorial format; I described the VA and QRS intervals. This was to show the effects of antiarrhythmic therapy on the e lectrical system. I was able to look at the past several EKG's. A new EKG was performed today and interpretation was noted. I reviewed this interpretation with the patient, and the family when available, and compared it to the previous EKG's that we have in the medical record. Since my office visit was carried out with a scribe, while in the exam room I was able to devote one hundred percent of my time in [id number] conversation with the patient. I answered all the questions and explained the diagnosis of preop clearance. Greater that 51% of my time was spent with [id number] conversation with the patient. I have discussed the recommended treatment, alternative therapies and other options in detail. I've discussed the best benefit and side effects of these recommended treatments. I've attempted to answer all the questions to the patient's satisfaction and understanding. With approval, we would recommend an pursuethe current therapy such as stable for surgery. After leaving the exam room, I went back into the patient's chart and coordinated care with my nurse ordering the proper testing and medicinal changes. Letter was performed with voice recognition algorithms and sent to the referring team. The chart was completed. Including the pre-exam, exam and post- exam, the total time spent in the patient's management was greater than 15 minutes I, Dr. Milton Basilio, have reviewed and agree with the information in the medical record. Milton Basilio DO [facility] Telephone encounter Note * Telephone Encounter - Terrie Cortez - 04/27/2023 5:46 PM EDT Message released to patient as written. Yes Patient's further questions if applicable: N/A Were all questions from office addressed or relayed to the patient from encounter: Yes [id number] Miscellaneous Notes* Telephone Encounter - Terrie Cortez - 04/27/2023 5:46 PM EDT Message released to patient as written. Yes Patient's further questions if applicable: N/A Were all questions from office addressed or relayed to the patient from encounter: Yes * Telephone Encounter - Sascha Baron LPN - 04/27/2023 4:59 PM EDT Call to patient. Lm on to call the office. Please inform patient, provider has sent 1 month supply to patient's local pharmacy. * Telephone Encounter - Sascha Baron LPN - 04/27/2023 9:24 AM EDT Patient was seen in office today. Patient stated will take a couple of weeks to receive medication from [facility] pharmacy. Patient is [facility] so patient will have medication while waiting for mail pharmacy to send to patient. documented in this encounterSWilson Memorial [id number] Telephone encounter Note* Telephone Encounter - Sascha Baron LPN - 04/27/2023 4:59 PM EDT Call to patient. Lm on to call the office. Please inform patient, provider has sent 1 month supply to patient's local pharmacy. [facility] [id number] Telephone encounter Note* Telephone Encounter - Sascha Baron LPN - 04/27/2023 9:24 AM EDT Patient was seen in office today. Patient stated will take a couple of weeks to receive medication from [facility] pharmacy. Patient is requesting to send a [facility] so patient will have medication while waiting for mail pharmacy to send to patient. [place] [id number] History of Present illness Narrative* Ralph Noriega MD - 04/27/2023 9:00 AM EDT Images from the original note were not included. [facility] [address] [place] [address] [facility] [address] Dept: [phone] Dept Loc: [phone] Visit type: Established Patient Reason for Visit: Follow-up and Parkinson's Disease Assessment and Plan 1. Parkinson disease (HCC) 2. Essential tremor Subjective HPI: He reports t he is feeling better since I took him off of the Stalevo and switched him to carb-levo. His tremor is a little worse, but he feels better. He reports that the Lokelma causes him to feel fatigued and temporarily makes his tremor worse. The Lokelma is associated with him having worseningof the constipation. REVIEW OF SYSTEMS: Review of Systems Constitutional: Positive for fatigue. Negative for appetite change, chills, diaphoresis, fever and unexpected weight change. HENT: Negative for dental problem and mouth sores. Eyes: Negative for discharge and itching. Respiratory: Negative for chest tightness and shortness of breath. Cardiovascular: Negative for chest pain, palpitations and leg swelling. Gastrointestinal: Negative for abdominal pain, nausea, rectal pain and vomiting. Endocrine: Negative for polydipsia, polyphagia and polyuria. Genitourinary: Negative for decreased urine volume, flank pain and genital sores. Musculoskeletal: Positive for back pain. Negative for arthralgias and neck pain. Skin: Negative for color change. Allergic/Immunologic: Negative for food allergies and immunocompromised state. Neurological: Positive for dizziness, tremors and weakness. Negative for syncope, light-headedness and headaches. Hematological: Negative for adenopathy. Does not bruise/bleed easily. Psychiatric/Behavioral: Negative for agitation, behavioral problems, confusion, decreased concentration, sleep disturbance and suicidal ideas. Answers submitted by the patient for this visit: Neurological Problem Questionnaire (Submitted on 04/22/2023) Chief Complaint: Neurologic complaint altered mental status: No clumsiness: No focal sensory loss: No focal weakness: No loss of balance: No memory loss: No near-syncope: No slurred speech: No visual change: No Chronicity: recurrent Onset: more than 1 year ago Onset quality: gradually Progression since onset: waxing and waning Focality: no focality noted auditory change: No aura: No bladder incontinence: No bowel incontinence: No vertigo: No Treatments tried: acetaminophen Improvement on treatment: significant Allergies Allergen Reactions Allopurinol Other reaction(s): Possible cause of rash on legs: went away after stopping Clindamycin Propranolol Leg edema Simvastatin Other reaction(s): myalgia Sulfa Antibiotics Current Outpatient Medications: amLODIPine (Norvasc) 10 MG tablet, , Disp: , Rfl: Ascorbic Acid (VITAMIN C PO), Take 500 mg by mouth., Disp: , Rfl: aspirin 81 MG EC tablet, , Disp: , Rfl: betamethasone, augmented, (Diprolene AF) 0.05 % cream, APPLY TO THE AREAS OF RASH ON THE LEGS DAILYAS NEEDED, Disp: , Rfl: carbidopa-levodopa CR (Sinemet CR) 50-200 MG ER tablet, Take 1 tablet by mouth 3 times daily. Do not crush or chew., Disp: 270 tablet, Rfl: 3 carvedilol (Coreg) 25 MG tablet, 25 mg in the morning and 25 mg in the evening., Disp: , Rfl: cholecalciferol (Vitamin D-3) 50 MCG (2000 UT) capsule, Take by mouth., Disp: , Rfl: hydrALAZINE (Apresoline) 50 MG tablet, Take by mouth., Disp: , Rfl: hydroCHLOROthiazide (Microzide) 12.5 MG capsule, Take 12.5 mg by mouth daily. Takes 1 tab every other day., Disp: , Rfl: Lokelma 5 g packet, , Disp: , Rfl: magnesium oxide (Mag-Ox) 400 MG tablet, Take 250 mg by mouth daily., Disp: , Rfl: pramipexole (Mirapex) 0.25 MG tablet, Take 1 tablet (0.25 mg) by mouth 3 times daily., Disp: 270 tablet, Rfl: 2 primidone (Mysoline) 50 MG tablet, Take 2 tablets (100 mg) by mouth 2 times daily., Disp: 360 tablet, Rfl: 1 Ascorbic Acid (vitamin C) 1000 MG tablet, Take 1 tablet (1,000 mg) by mouth with evening meal. And a meal, Disp: 90 tablet, Rfl: 3 carbidopa-levodopa (Sinemet) 25-100 MG tablet, Take 1 tablet by mouth every 8 hours as needed (worsening Parkinson's tremor)., Disp: 270 tablet, Rfl: 1 Cyanocobalamin (VITAMIN B 12 PO), Take by mouth., Disp: , Rfl: Ferrous Sulfate (SLOW FE PO), Take by mouth., Disp: , Rfl: hydrALAZINE (Apresoline) 10 MG tablet, Take 10 mg by mouth in the morning and 10 mg in the evening., Disp: , Rfl: magnesium gluconate 250 MG tablet, 250 mg., Disp: , Rfl: metaxalone (Skelaxin) 800 MG tablet, TAKE 1 TABLET BY MOUTH EVERY 8 HOURS NEEDED (TIGHTNESS, SPASMS IN LEGS), Disp: , Rfl: pramipexole (Mirapex) 0.25 MG tablet, Take 1 tablet (0.25 mg) by mouth in the morning and 1 tablet (0.25 mg) at noon and 1 tablet (0.25 mg) before bedtime. (Patient not taking: Reported on 03/13/2023), Disp: 270 tablet, Rfl: 1 Past Medical History: Diagnosis Date Back pain Cancer (CMS/HCC) (HCC) Hypertension Lumbar stenosis Testicular cancer (HCC) Testicular carcinoma, right (HCC) Social History Tobacco Use Smoking status: Never Smokeless tobacco: Never Substance Use Topics Alcohol use: Never Past Surgical History: Procedure Laterality Date HERNIA REPAIR 01/07/2023 OTHER SURGICAL HISTORY back injections TONSILLECTOMY (HISTORICAL) TUMOR REMOVAL No family history on file. Objective Vitals: BP (!) 162/89 (BP Location: Right arm) Pulse 64 Wt 227 lb (103 kg) BMI 34.01 kg/m General Appearance: Patient is in no apparent distress. Head is normocephalic, atraumatic Cardiovascular: Regular rate and rhythm. No heart murmurs. No carotid bruit Neurologic: Mentation: Alert and oriented x 3 to person, place and time. Speech and Language: Speech and language normal Concentration and Attention: Concentration normal Memory: Memory normal Fund of Knowledge: Fund of knowledge normal Cranial Nerves: II, III, IV, V, , VII, VIII, IX, X, XI, XII examined and were intact. Motor: Strength: Strength 5 out of 5 with normal tone Alternating Movements: Normal Cogwheel Rigidity: None Tone: Tone is normal Tremor / Involuntary Movements: Good in the hands. He has head titubation Deep Tendon Reflexes: 1 out of 4 symmetrical in all four limbs. Sensory: Normal sensation upper and lower extremities Coordination: Normal coordination upper and lower extremities Gait and Station: Station is normal. Gait is nearly normal with just a little decreased left arm swing. Data Reviewed and Summarized DIAGNOSTIC TESTING CBC: No results found for: WBC, RBC, HGB, HCT, MCV, MCH, MCHC, RDW, PLT, MPV CMP: No results found for: NA, K, CL, CO2, BUN, CREATININE, AGRATIO, LABGLOM, GLUCOSE, GLU, PROT, CALCIUM, BILITOT, ALKPHOS, AST, ALT BMP: No results found for: NA, K, CL, CO2, BUN, CREATININE, CALCIUM, LABGLOM, GLUCOSE, GLU PT/INR: No results found for: PROTIME, INR PTT: No results found for: APTT, PTT[APTT} FLP: No results found for: CHLPL, TRIG, HDL, LDLCALC, LDLDIRECT TSH: No results found for: TSH VITAMIN B12: No results found for: [id number] No results found for: PHENYTOIN, PHENOBARB, VALPROATE, CBMZ No components found for: TOPIRA @RESULTINGLABINFO@ No results found for: LEVETIRACETA, FERRITIN, CRP, MARTA, ANCA No results found for: JUAREZ, IMMUNOGLOBUL, OLIGOBANDS No results found for: [id number], HEPCAB No results found for: CRP, ANATITER, ANCA, ANCA FERRITIN: No results found for: FERRITIN ---- No image results found. IMPRESSION and PLAN: Diagnosis Plan 1. Parkinson disease (HCC) 2. Essential tremor Carb-levo CR 50/200 TID. Will add carb-levo IR 25/100 Q8 hours prn. His original tremor and still the source of the head titubation. Continue the primidone. I advised him to take the iron supplement with a meal and 1000 mg of vitamin C to reduce constipation. RALPH NORIEGA MD I spent 30 minutes caring for this patient today, reviewing labs, records, seeing the patient, documenting in the record and arranging for studies. documented in this [facility]07-14-[facility] History of Present illness Narrative* Ralph Noriega MD - 03/13/2023 2:30 PM EDT Images from the original note were not included. [facility] [address] [facility] [address] Dept: [phone] Dept Loc: [phone] Visit type: Established Patient Reason for Visit: Follow-up and Parkinson's Disease Assessment and Plan 1. Parkinson disease (HCC) 2. Essential tremor Subjective HPI: He is having trouble with low blood pressure. He reports that after he gets up in the AM and he takes his meds, then he exercises, and then he gets lightheaded. He then feels enervated and has trouble getting up the rest of the day. He reports that he is having low potassium and is having low potassium. He reports that he is having pain in the REVIEW OF SYSTEMS: Review of Systems Constitutional: Negative for appetite change, chills, diaphoresis, fever and unexpected weight change. HENT: Negative for dental problem and mouth sores. Eyes: Negative for discharge and itching. Respiratory: Negative for chest tightness. Cardiovascular: Negative for chest pain and leg swelling. Gastrointestinal: Negative for rectal pain and vomiting. Endocrine: Negative for polydipsia, polyphagia and polyuria. Genitourinary: Negative for decreased urine volume, flank pain and genital sores. Musculoskeletal: Positive for back pain. Negative for arthralgias. Skin: Negative for color change. Allergic/Immunologic: Negative for food allergies and immunocompromised state. Neurological: Positive for dizziness, tremors and weakness. Hematological: Negative for adenopathy. Does not bruise/bleed easily. Psychiatric/Behavioral: Negative for agitation, behavioral problems, decreased concentration, sleepdisturbance and suicidal ideas. Allergies Allergen Reactions Allopurinol Other reaction(s): Possible cause of rash on legs: went away after stopping Clindamycin Propranolol Leg edema Simvastatin Other reaction(s): myalgia Sulfa Antibiotics Current Outpatient Medications: amLODIPine (Norvasc) 10 MG tablet, , Disp: , Rfl: Ascorbic Acid (VITAMIN C PO), Take 500 mg by mouth., Disp: , Rfl: aspirin 81 MG EC tablet, , Disp: , Rfl: betamethasone, augmented, (Diprolene AF) 0.05 % cream, APPLY TO THE AREAS OF RASH ON THE LEGS DAILYAS NEEDED, Disp: , Rfl: carbidopa-levodopa CR (Sinemet CR) 50-200 MG ER tablet, 2 times daily., Disp: , Rfl: carvedilol (Coreg) 25 MG tablet, 25 mg in the morning and 25 mg in the evening., Disp: , Rfl: cholecalciferol (Vitamin D-3) 50 MCG (1999) capsule, Take by mouth., Disp: , Rfl: Cyanocobalamin (VITAMIN B 12 PO), Take by mouth., Disp: , Rfl: Ferrous Sulfate (SLOW FE PO), Take by mouth., Disp: , Rfl: hydrALAZINE (Apresoline) 10 MG tablet, Take 10 mg by mouth in the morning and 10 mg in the evening., Disp: , Rfl: hydroCHLOROthiazide (Microzide) 12.5 MG capsule, Take 12.5 mg by mouth daily. Takes 1 tab every other day., Disp: , Rfl: Lokelma 5 g packet, , Disp: , Rfl: magnesium gluconate 250 MG tablet, 250 mg., Disp: , Rfl: pramipexole (Mirapex) 0.25 MG tablet, Take 1 tablet (0.25 mg) by mouth 3 times daily., Disp: 270 tablet, Rfl: 2 primidone (Mysoline) 50 MG tablet, Take 2 tablets (100 mg) by mouth 2 times daily., Disp: 360 tablet, Rfl: 1 buvwcvikd-vxxnrqpu-dwmqvkwfpb (Stalevo) 50-200-200 MG tablet, Take 1 tablet by mouth 3 times daily., Disp: 270 tablet, Rfl: 2 metaxalone (Skelaxin) 800 MG tablet, TAKE 1 TABLET BY MOUTH EVERY 8 HOURS NEEDED (TIGHTNESS, SPASMS IN LEGS), Disp: , Rfl: pramipexole (Mirapex) 0.25 MG tablet, Take 1 tablet (0.25 mg) by mouth in the morning and 1 tablet (0.25 mg) at noon and 1 tablet (0.25 mg) before bedtime. (Patient not taking: Reported on 03/13/2023), Disp: 270 tablet, Rfl: 1 Past Medical History: Diagnosis Date Back pain Cancer (CMS/HCC) (HCC) Hypertension Lumbar stenosis Testicular cancer (HCC) Testicular carcinoma, right (HCC) Social History Tobacco Use Smoking status: Never Smokeless tobacco: Never Substance Use Topics Alcohol use: Never Past Surgical History: Procedure Laterality Date HERNIA REPAIR 01/07/2023 OTHER SURGICAL HISTORY back injections TONSILLECTOMY (HISTORICAL) TUMOR REMOVAL No family history on file. Objective Vitals: BP (!) 179/86 (BP Location: Right arm) Pulse 62 Wt 228 lb (103 kg) BMI 34.16 kg/m General Appearance: Patient is in no apparent distress. Head is normocephalic, atraumatic Cardiovascular: Regular rate and rhythm. No heart murmurs. No carotid bruit Neurologic: Mentation: Alert and oriented x 3 to person, place and time. Speech and Language: Speech and language normal Concentration and Attention: Concentration normal Memory: Memory normal Fund of Knowledge: Fund of knowledge normal Cranial Nerves: II, III, IV, V, , VII, VIII, IX, X, XI, XII examined and were intact. Motor: Strength: Strength 5 out of 5 with normal tone Alternating Movements: Normal Cogwheel Rigidity: None Tone: Tone is normal Tremor / Involuntary Movements: Remarkably good in the hands. He has head titubation Deep Tendon Reflexes: 1 out of 4 symmetrical in all four limbs. Sensory: Normal sensation upper and lower extremities Coordination: Normal coordination upper and lower extremities Gait and Station: Station is normal. Gait is nearly normal with just a little decreased left arm swing. Data Reviewed and Summarized DIAGNOSTIC TESTING CBC: No results found for: WBC, RBC, HGB, HCT, MCV, MCH, MCHC, RDW, PLT, MPV CMP: No results found for: NA, K, CL, CO2, BUN, CREATININE, AGRATIO, LABGLOM, GLUCOSE, GLU, PROT, CALCIUM, BILITOT, ALKPHOS, AST, ALT BMP: No results found for: NA, K, CL, CO2, BUN, CREATININE, CALCIUM, LABGLOM, GLUCOSE, GLU PT/INR: No results found for: PROTIME, INR PTT: No results found for: APTT, PTT[APTT} FLP: No results found for: CHLPL, TRIG, HDL, LDLCALC, LDLDIRECT TSH: No results found for: TSH VITAMIN B12: No results found for: [id number] No results found for: PHENYTOIN, PHENOBARB, VALPROATE, CBMZ No components found for: TOPIRA @RESULTINGLABINFO@ No results found for: LEVETIRACETA, FERRITIN, CRP, MARTA, ANCA No results found for: JUAREZ, IMMUNOGLOBUL, OLIGOBANDS No results found for: [id number], HEPCAB No results found for: CRP, ANATITER, ANCA, ANCA FERRITIN: No results found for: FERRITIN ---- No image results found. IMPRESSION and PLAN: Diagnosis Plan 1. Parkinson disease (HCC) 2. Essential tremor He is to only take pramipexole at night before bed. He is to stop Stalevo (desk-cakl-rfawjuprrf) and go to carb-levo CR 50/200 po TID instead to see if the entacapone is causing this issue as that was the major change if Fe. His original tremor and still the source of the head titubation. Continue the primidone. No problem-specific Assessment & Plan notes found for this encounter. RALPH NORIEGA MD I spent 30 minutes caring for this patient today, reviewing labs, records, seeing the patient, documenting in the record and arranging for studies. @SIGNATURE@ documented in this [facility]04-13-2023 NoteHNO ID: [id number] Author: Milena Herman APRN.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 Service: ? Author Type: Nurse Practitioner Type: Progress Notes Filed: 12/11/2022 1:50 PM Note Text: [facility] Department of Cardiology Referring Provider: No ref. provider found Date: December 11, 2022 Chief Complaint: Hypertension Subjective: Carolyn Abbott is a 72 year old, established male who presents hypertension. Patient also has known chronic diastolic heart failure. Patient has checked his blood pressure at home reports that it runs from 130-150. Patient denies any headaches, dizziness, or syncopal episodes. Patient denies any chest pain or chest discomfort. ALLERGIES Allergen Reactions Clindamycin Swelling Sulfa (Sulfonamide * Unknown PAST MEDICAL HISTORY: PAST MEDICAL HISTORY Diagnosis Date Abnormal renal ultrasound 05/26/2022 No evidence of hemodynamically significant arterial stenosis, involving the right renal artery. Consistent with less than 60% stenosis. No evidence of hemodynamically significant arterial stenosis, involving the left renal artery. Consistent with less than 60% stenosis. Aortic stenosis 2018 Bilateral leg pain foward emg results to neuro when received; etiology unclear, but reassuring that activity actually improved the issue; possible differentials include funcitonal magnesium deficiency from his chronic use of diuretic therapy, soreness from uncontrolled leg movements that night, less likely radiculopathy/spinal stenosis- not unknown medication side effect and no med change. 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 History of echocardiogram 05/28/2022 EF 55%. Mild concentric left ventricular hypertrophy. Stage 1 diastolic dysfunction. No regional wall motion abnormalities noted. History of echocardiogram 11/26/2020 EF 65%. Normal LV size. Left ventricular systolic function is normal. Mild-moderate mitral annular calcification. Mild-moderate eccentric mitral valve insufficiency. Mild focal aortic valve calcification. Mild aortic stenosis. History of echocardiogram 01/27/2020 EF 60%. Normal LV size. Left ventricular systolic function is normal. Moderate focal aortic valve calcification. Stage 1 diastolic dysfunction. Pulmonary artery systolic pressure is 20 mmHg. History of echocardiogram 12/24/2015 EF 55%. Normal LV size. Mild concentric left ventricular hypertrophy. Left ventricular systolic function is normal. Transmitral and pulmonary venous doppler flow suggestive of impaired relaxation of left ventricle. Mild (1+) tricuspid valve insufficiency. History of prostate cancer 1980 Diagnosed in mid , with some adenopathy in the abdomen Hypogonadism in male IFG (impaired fasting glucose) Joint pain Lumbar spinal stenosis Multiple acquired skin tags PATRICIO (obstructive sleep apnea) Parkinson's disease (HCC) 2017 Polycystic kidney disease Polyneuropathy lower extremities, very mild, NCS 08/2021 Respiratory symptoms Valvular heart disease 2017 Vitamin D deficiency Vitreous degeneration PAST SURGICAL HISTORY Procedure Laterality Date ULTRASOUND GUIDANCE FOR VENOUS ABLATION FAMILY HISTORY Problem Relation Age of Onset Diabetes Mother Hypertension Mother Diabetes Father Hypertension Father Heart Attack Father Heart disease Father Diabetes Sister Hypertension Sister Cancer Brother Heart disease Brother Hypertension Brother No Known Problems Paternal Grandfather SOCIAL HISTORY: Tobacco Use: Never Alcohol Use: Not Currently Drug Use: Never Employer And Job Title: None on file Years Of Education Completed: Not specified Marital Status: MEDICATIONS: Current Outpatient Medications Medication Sig hydroCHLOROthiazide 12.5 mg capsule Take 12.5 mg by mouth once daily. Ferrous Sulfate (SLOW FE) 142 mg (45 mg iron) TbER once daily. levocetirizine 5 mg tablet Take 5 mg by mouth daily at bedtime. cyanocobalamin (VITAMIN B-12) 1,000 mcg tab Take 1,000 mcg by mouth once daily. amLODIPine (NORVASC) 10 mg tablet Take 1 tablet by mouth once daily. carvedilol (COREG) 25 mg tablet Take 1 tablet by mouth twice daily with meals. primidone (MYSOLINE) 50 mg tablet Take 100 mg by mouth twice daily. aspirin, enteric coated (ASPIRIN, ENTERIC COATED) 81 mg EC tablet Take 81 mg by mouth once daily. qegkllsej-ikjcglzq-lsesixgukg (STALEVO 200) 50-200-200 mg per tablet Take 1 tablet by mouth three times daily. cloNIDine TTS (CATAPRES-TTS) 0.1 mg/24 hr once daily as needed. hydrALAZINE (APRESOLINE) 100 mg tablet Take 100 mg by mouth three times daily. MAGNE (more content not included)...[facility] [place]03-16-2023 NoteHNO ID: [id number] Author: Milena Herman APRN.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 Service: ? Author Type: Nurse Practitioner Type: Progress Notes Filed: 11/14/2022 9:19 AM Note Text: [facility] Department of Cardiology Referring Provider: No ref. provider found Date: November 13, 2022 Chief Complaint: Hypertension Subjective: Carolyn Abbott is a 71 year old, established male who presents hypertension. Patient denies any headaches, dizziness, or syncopal episodes. Patient denies any chest pain or chest discomfort. ALLERGIES Allergen Reactions Clindamycin Swelling Sulfa (Sulfonamide * Unknown PAST MEDICAL HISTORY: PAST MEDICAL HISTORY Diagnosis Date Abnormal renal ultrasound 05/26/2022 No evidence of hemodynamically significant arterial stenosis, involving the right renal artery. Consistent with less than 60% stenosis. No evidence of hemodynamically significant arterial stenosis, involving the left renal artery. Consistent with less than 60% stenosis. Aortic stenosis 2019 Bilateral leg pain foward emg results to neuro when received; etiology unclear, but reassuring that activity actually improved the issue; possible differentials include funcitonal magnesium deficiency from his chronic use of diuretic therapy, soreness from uncontrolled leg movements that night, less likely radiculopathy/spinal stenosis- not unknown medication side effect and no med change. 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 History of echocardiogram 05/28/2022 EF 55%. Mild concentric left ventricular hypertrophy. Stage 1 diastolic dysfunction. No regional wall motion abnormalities noted. History of echocardiogram 11/26/2020 EF 65%. Normal LV size. Left ventricular systolic function is normal. Mild-moderate mitral annular calcification. Mild-moderate eccentric mitral valve insufficiency. Mild focal aortic valve calcification. Mild aortic stenosis. History of echocardiogram 01/27/2020 EF 60%. Normal LV size. Left ventricular systolic function is normal. Moderate focal aortic valve calcification. Stage 1 diastolic dysfunction. Pulmonary artery systolic pressure is 20 mmHg. History of echocardiogram 12/24/2015 EF 55%. Normal LV size. Mild concentric left ventricular hypertrophy. Left ventricular systolic function is normal. Transmitral and pulmonary venous doppler flow suggestive of impaired relaxation of left ventricle. Mild (1+) tricuspid valve insufficiency. History of prostate cancer 1980 Diagnosed in mid 1980s, with some adenopathy in the abdomen Hypogonadism in male IFG (impaired fasting glucose) Joint pain Lumbar spinal stenosis Multiple acquired skin tags PATRICIO (obstructive sleep apnea) Parkinson's disease (HCC) 2017 Polycystic kidney disease Polyneuropathy lower extremities, very mild, NCS 08/2021 Respiratory symptoms Valvular heart disease 2017 Vitamin D deficiency Vitreous degeneration PAST SURGICAL HISTORY Procedure Laterality Date ULTRASOUND GUIDANCE FOR VENOUS ABLATION FAMILY HISTORY Problem Relation Age of Onset Diabetes Mother Hypertension Mother Diabetes Father Hypertension Father Heart Attack Father Heart disease Father Diabetes Sister Hypertension Sister Cancer Brother Heart disease Brother Hypertension Brother No Known Problems Paternal Grandfather SOCIAL HISTORY: Tobacco Use: Never Alcohol Use: Not Currently Drug Use: Never Employer And Job Title: None on file Years Of Education Completed: Not specified Marital Status: MEDICATIONS: Current Outpatient Medications Medication Sig levocetirizine 5 mg tablet Take 5 mg by mouth daily at bedtime. cyanocobalamin (VITAMIN B-12) 1,000 mcg tab Take 1,000 mcg by mouth once daily. amLODIPine (NORVASC) 10 mg tablet Take 1 tablet by mouth once daily. carvedilol (COREG) 25 mg tablet Take 1 tablet by mouth twice daily with meals. primidone (MYSOLINE) 50 mg tablet Take 100 mg by mouth twice daily. aspirin, enteric coated (ASPIRIN, ENTERIC COATED) 81 mg EC tablet Take 81 mg by mouth once daily. xijxafgwy-xabpdvde-cshgyqmocb (STALEVO 200) 50-200-200 mg per tablet Take 1 tablet by mouth three times daily. cloNIDine TTS (CATAPRES-TTS) 0.1 mg/24 hr once daily as needed. hydrALAZINE (APRESOLINE) 100 mg tablet Take 100 mg by mouth three times daily. MAGNESIUM GLUCONATE ORAL Take 500 mg by mouth once daily. pramipexole (MIRAPEX) 0.25 mg tablet Take 0.25 mg by mouth three times daily. ascorbic acid, vitamin C, (VITAMIN C) 500 mg tablet Take 1,500 mg by mouth once daily. ergocalciferol, vitamin D2, 50 mcg (2,000 unit) tab (more content not included)...[facility] [place]02-16-2023 NoteHNO ID: [id number] Author: Milena Herman APRN.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 Service: ? Author Type: Nurse Practitioner Type: Progress Notes Filed: 10/17/2022 12:40 PM Note Text: [facility] Department of Cardiology Referring Provider: No ref. provider found Date: October 16, 2022 Chief Complaint: Hypertension and CHF Subjective: Carolyn Abbott is a 71 year old male who presents as a new patient establishing for hypertension and CHF. Patient denies any headaches, dizziness, or syncopal episodes. Patient denies any chest pain or chest discomfort. Patient denies any shortness of breath. Patient has history of chronic diastolic heart failure, mild coronary artery disease, PAD, Parkinson's disease, chronic kidney disease stage III, testicular cancer, and vitamin D deficiency. ALLERGIES Allergen Reactions Clindamycin Swelling Sulfa (Sulfonamide * Unknown PAST MEDICAL HISTORY: PAST MEDICAL HISTORY Diagnosis Date Abnormal renal ultrasound 05/26/2022 No evidence of hemodynamically significant arterial stenosis, involving the right renal artery. Consistent with less than 60% stenosis. No evidence of hemodynamically significant arterial stenosis, involving the left renal artery. Consistent with less than 60% stenosis. Aortic stenosis 2018 Bilateral leg pain foward emg results to neuro when received; etiology unclear, but reassuring that activity actually improved the issue; possible differentials include funcitonal magnesium deficiency from his chronic use of diuretic therapy, soreness from uncontrolled leg movements that night, less likely radiculopathy/spinal stenosis- not unknown medication side effect and no med change. 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 History of echocardiogram 05/28/2022 EF 55%. Mild concentric left ventricular hypertrophy. Stage 1 diastolic dysfunction. No regional wall motion abnormalities noted. History of echocardiogram 11/26/2020 EF 65%. Normal LV size. Left ventricular systolic function is normal. Mild-moderate mitral annular calcification. Mild-moderate eccentric mitral valve insufficiency. Mild focal aortic valve calcification. Mild aortic stenosis. History of echocardiogram 01/27/2020 EF 60%. Normal LV size. Left ventricular systolic function is normal. Moderate focal aortic valve calcification. Stage 1 diastolic dysfunction. Pulmonary artery systolic pressure is 20 mmHg. History of echocardiogram 12/24/2015 EF 55%. Normal LV size. Mild concentric left ventricular hypertrophy. Left ventricular systolic function is normal. Transmitral and pulmonary venous doppler flow suggestive of impaired relaxation of left ventricle. Mild (1+) tricuspid valve insufficiency. History of prostate cancer 1980 Diagnosed in mid , with some adenopathy in the abdomen Hypogonadism in male IFG (impaired fasting glucose) Joint pain Lumbar spinal stenosis Multiple acquired skin tags PATRICIO (obstructive sleep apnea) Parkinson's disease (HCC) 2017 Polycystic kidney disease Polyneuropathy lower extremities, very mild, NCS 08/2021 Respiratory symptoms Valvular heart disease 2017 Vitamin D deficiency Vitreous degeneration PAST SURGICAL HISTORY Procedure Laterality Date ULTRASOUND GUIDANCE FOR VENOUS ABLATION FAMILY HISTORY Problem Relation Age of Onset Diabetes Mother Hypertension Mother Diabetes Father Hypertension Father Heart Attack Father Heart disease Father Diabetes Sister Hypertension Sister Cancer Brother Heart disease Brother Hypertension Brother No Known Problems Paternal Grandfather SOCIAL HISTORY: Tobacco Use: Never Alcohol Use: Not Currently Drug Use: Never Employer And Job Title: None on file Years Of Education Completed: Not specified Marital Status: MEDICATIONS: Current Outpatient Medications Medication Sig primidone (MYSOLINE) 50 mg tablet Take 100 mg by mouth twice daily. amLODIPine (NORVASC) 10 mg tablet Take 10 mg by mouth once daily. aspirin, enteric coated (ASPIRIN, ENTERIC COATED) 81 mg EC tablet Take 81 mg by mouth once daily. rcxasoamu-mvtzexwx-bdbjrchxrp (STALEVO 200) 50-200-200 mg per tablet Take 1 tablet by mouth three times daily. carvedilol (COREG) 25 mg tablet Take 25 mg by mouth twice daily with meals. cloNIDine TTS (CATAPRES-TTS) 0.1 mg/24 hr once daily as needed. hydrALAZINE (APRESOLINE) 25 mg tablet Take 25 mg by mouth three times daily. MAGNESIUM GLUCONATE ORAL Take 250 mg by mouth once daily. pramipexole (MIRAPEX) 0.25 mg tablet Take 0.25 mg by mouth three times daily. ascorbic acid, vitami (more content not included)...[facility] [place] 10-16-2022 History of Present illness Narrative* Milena Herman APRN.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 - 10/16/2022 12:50 PM EST [facility] Department of Cardiology Referring Provider: No ref. provider found Date: October 16, 2022 Chief Complaint: Hypertension and CHF Subjective: Carolyn Abbott is a 71 year old male who presents as a new patient establishing for hypertension and CHF. Patient denies any headaches, dizziness, or syncopal episodes. Patient denies any chest pain or chest discomfort. Patient denies any shortness of breath. Patient has history of chronic diastolic heart failure, mild coronary artery disease, PAD, Parkinson's disease, chronic kidney disease stage III, testicular cancer, and vitamin D deficiency. ALLERGIES Allergen Reactions Clindamycin Swelling Sulfa (Sulfonamide * Unknown PAST MEDICAL HISTORY: PAST MEDICAL HISTORY Diagnosis Date Abnormal renal ultrasound 05/26/2022 No evidence of hemodynamically significant arterial stenosis, involving the right renal artery. Consistent with less than 60% stenosis. No evidence of hemodynamically significant arterial stenosis, involving the left renal artery. Consistent with less than 60% stenosis. Aortic stenosis 2019 Bilateral leg pain foward emg results to neuro when received; etiology unclear, but reassuring that activity actually improved the issue; possible differentials include funcitonal magnesium deficiency from his chronic use of diuretic therapy, soreness from uncontrolled leg movements that night, less likely radiculopathy/spinal stenosis- not unknown medication side effect and no med change. 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 History of echocardiogram 05/28/2022 EF 55%. Mild concentric left ventricular hypertrophy. Stage 1 diastolic dysfunction. No regional wall motion abnormalities noted. History of echocardiogram 11/26/2020 EF 65%. Normal LV size. Left ventricular systolic function is normal. Mild- moderate mitral annular calcification. Mild-moderate eccentric mitral valve insufficiency. Mild focal aortic valve calcification. Mild aortic stenosis. History of echocardiogram 01/27/2020 EF 60%. Normal LV size. Left ventricular systolic function is normal. Moderate focal aortic valve calcification. Stage 1 diastolic dysfunction. Pulmonary artery systolic pressure is 20 mmHg. History of echocardiogram 12/24/2015 EF 55%. Normal LV size. Mild concentric left ventricular hypertrophy. Left ventricular systolic function is normal. Transmitral and pulmonary venous doppler flow suggestive of impaired relaxation of left ventricle. Mild (1+) tricuspid valve insufficiency. History of prostate cancer 1980 Diagnosed in mid 1980s, with some adenopathy in the abdomen Hypogonadism in male IFG (impaired fasting glucose) Joint pain Lumbar spinal stenosis Multiple acquired skin tags PATRICIO (obstructive sleep apnea) Parkinson's disease (HCC) 2017 Polycystic kidney disease Polyneuropathy lower extremities, very mild, NCS 08/2021 Respiratory symptoms Valvular heart disease 2017 Vitamin D deficiency Vitreous degeneration PAST SURGICAL HISTORY Procedure Laterality Date ULTRASOUND GUIDANCE FOR VENOUS ABLATION FAMILY HISTORY Problem Relation Age of Onset Diabetes Mother Hypertension Mother Diabetes Father Hypertension Father Heart Attack Father Heart disease Father Diabetes Sister Hypertension Sister Cancer Brother Heart disease Brother Hypertension Brother No Known Problems Paternal Grandfather SOCIAL HISTORY: Tobacco Use: Never Alcohol Use: Not Currently Drug Use: Never Employer And Job Title: None on file Years Of Education Completed: Not specified Marital Status: MEDICATIONS: Current Outpatient Medications Medication Sig primidone (MYSOLINE) 50 mg tablet Take 100 mg by mouth twice daily. amLODIPine (NORVASC) 10 mg tablet Take 10 mg by mouth once daily. aspirin, enteric coated (ASPIRIN, ENTERIC COATED) 81 mg EC tablet Take 81 mg by mouth once daily. borxtzkds-vildjhsx-ylpbanjpcc (STALEVO 200) 50-200-200 mg per tablet Take 1 tablet by mouth three times daily. carvedilol (COREG) 25 mg tablet Take 25 mg by mouth twice daily with meals. cloNIDine TTS (CATAPRES-TTS) 0.1 mg/24 hr once daily as needed. hydrALAZINE (APRESOLINE) 25 mg tablet Take 25 mg by mouth three times daily. MAGNESIUM GLUCONATE ORAL Take 250 mg by mouth once daily. pramipexole (MIRAPEX) 0.25 mg tablet Take 0.25 mg by mouth three times daily. ascorbic acid, vitamin C, (VITAMIN C) 500 mg tablet Take 500 mg by mouth once daily. ergocalciferol, vitamin D2, 50 mcg (2,000 unit) tab Take by mouth once daily. isosorbide mononitrate ER (IMDUR) 30 mg 24 hr tablet Take 30 mg by mouth once daily. (Patient not taking: Reported on 10/16/2022) rosuvastatin (CRESTOR) 20 mg tablet Take 20 mg by mouth once daily. (Patient not taking: Reported on 10/16/2022) losartan (COZAAR) 50 mg tablet Take 50 mg by mouth once daily. (Patient not taking: Reported on 10/16/2022) No current facility-administered medications for this visit. I have personally reviewed the patients past medical history including social, family, surgical, diagnostics, and medications./AB REVIEW OF SYSTEMS: Review of Systems Constitutional: Positive for fatigue. Negative for chills. Respiratory: Negative for chest tightness and shortness of breath. Cardiovascular: Negative for chest pain, palpitations and leg swelling. Neurological: Positive for weakness. Negative for dizziness, syncope and light-headedness. Hematological: Does not bruise/bleed easily. Psychiatric/Behavioral: Negative for confusion and hallucinations. Vitals: BP 140/92 (BP Site: Left Arm, BP Position: Sitting, BP Cuff Size: Large Adult) Pulse 64 Ht 174 cm (5' 8.5 ) Wt 108.4 kg (239 lb) BMI 35.81 kg/m PHYSICAL EXAMINATION: BP 140/92 (BP Site: Left Arm, BP Position: Sitting, BP Cuff Size: Large Adult) Pulse 64 Ht 174 cm (5' 8.5 ) Wt 108.4 kg (239 lb) BMI 35.81 kg/m No data found for this vital: BP No data found for this vital: Pulse No data found for this vital: Wt Physical Exam Vitals and nursing note reviewed. Constitutional: General: He is not in acute distress. Appearance: He is obese. He is not diaphoretic. HENT: Head: Normocephalic. Eyes: Extraocular Movements: Extraocular movements intact. Cardiovascular: Rate and Rhythm: Normal rate and regular rhythm. Heart sounds: Murmur heard. Pulmonary: Breath sounds: Normal breath sounds. No wheezing, rhonchi or rales. Abdominal: General: Bowel sounds are normal. There is no distension. Tenderness: There is no abdominal tenderness. There is no guarding. Musculoskeletal: Cervical back: Neck supple. Right lower leg: Edema present. Left lower leg: Edema present. Skin: General: Skin is warm. Coloration: Skin is not jaundiced or pale. Findings: No bruising or rash. Neurological: General: No focal deficit present. Mental Status: He is alert and oriented to person, place, and time. Motor: No weakness. Gait: Gait normal. Psychiatric: Mood and Affect: Mood normal. Behavior: Behavior normal. Thought Content: Thought content normal. Judgment: Judgment normal. LABS: No results found for: GLUC, K, NA, CHLOR, CO2, CREAT, BUN, ANION, CA, TPROT, ALB, TBILI, ALKPHOS, AST, ALT No results found for: HB, HCT, WBC No results found for: CHOL, HDL, LDL, TG EKG: Normal sinus rhythm, HR 64 DIAGNOSTIC RESULTS: ASSESSMENT/PLAN: 1. Chronic diastolic HF (heart failure) (HCC) - ICD9: 428.32, ICD10: I50.32 (primary diagnosis) --NYHA II -Currently on Farxiga and Jardiance -Stable 2. Aortic valve stenosis, etiology of cardiac valve disease unspecified - ICD9: 424.1, ICD10: I35.0 Per echocardiogram from 01/27/2020 moderate focal aortic valve calcification. 3. Essential hypertension - ICD9: 401.9, ICD10: I10 -Today's blood pressure is 140/92 -Goal blood pressure < 140/90 -Fair control -Continue clonidine as needed -Continue hydralazine 25 mg 3 times a day -Continue amlodipine 10 mg daily -Continue carvedilol 25 mg twice daily - ECG COMPLETE 4. PATRICIO (obstructive sleep apnea) - ICD9: 327.23, ICD10: G47.33 -PATRICIO with CPAP use, patient uses nightly 5. History of echocardiogram - ICD9: V15.89, ICD10: Z92.89 -Echocardiogram from 05/28/2022 -EF 55%. Mild concentric left ventricular hypertrophy. Stage 1 diastolic dysfunction. No regional wall motion abnormalities noted. I have some motion 6. Abnormal renal ultrasound - ICD9: 793.5, ICD10: R93.429 -Renal ultrasound 02/17/2022 -No evidence of hemodynamically significant arterial stenosis, involving the right renal artery. Consistent with less than 60% stenosis. No evidence of hemodynamically significant arterial stenosis, involving the left renal artery. Consistent with less than 60% stenosis 7. Never smoked cigarettes - ICD9: V49.89, ICD10: Z78.9 8. History of cardiac cath - ICD9: V45.89, ICD10: Z98.890 -History of a heart cath 01/21/2021 -Nonobstructive coronary arteries with coronary ectasia noted in the LAD and right coronary artery. 9. Stage III chronic kidney disease N18.31 -Followed and managed by Dr. Guerra -Patient reports Dr. Vasquez started him on hydroxyzine 25 mg 3 times a day Milena Herman APRN.CNP Follow up in: 4 weeks hypertension Greater than 50% of this > 20 minute visit was spent face to face discussing current diagnosis and treatment plan consisting of above outlined plan. Follow- up as documented above. I have discussed the recommended treatment, alternative treatments and other treatment options in detail. I have discussed the risks, benefits and side effect of the recommended treatment. I have attempted to answer all their questions to their satisfaction and understanding of the explanation has been voiced. With approval we will pursue the recommended treatment. During this office visit I reviewed the patients previous Cardiac testing and procedures results and reviewed the results with the patient. I, Milena Herman CNP have reviewed and agree with the information in the medical record transcribed by Chandler Baker MA Student. Milena Herman APRN.CNP This patient note was partially generated from using the [employer] voice recognition system. There maybe some incorrect words, spelling, and punctuation that were not noted in checking the note prior to saving documented in [facility] Discharge instructions Patient Education 05/27/2022 18:45:01 Hypertension, Adult Hypertension, Adult High blood pressure (hypertension) is when the force of blood pumping through the arteries is too strong. The arteries are the blood vessels that carry blood from the heart throughout the body. Hypertension forces the heart to work harder to pump blood and may cause arteries to become narrow or stiff. Untreated or uncontrolled hypertension can cause a heart attack, heart failure, a stroke, kidneydisease, and other problems. A blood pressure reading consists of a higher number over a lower number. Ideally, your blood pressure should be below 120/80. The first ( top ) number is called the systolic pressure. It is a measure of the pressure in your arteries as your heart beats. The second ( bottom ) number is called the diastolic pressure. It is a measure of the pressure in your arteries as the heart relaxes. What are the causes? The exact cause of this condition is not known. There are some conditions that result in or are related to high blood pressure. What increases the risk? Some risk factors for high blood pressure are under your control. The following factors may make you more likely to develop this condition: Smoking. Having type 2 diabetes mellitus, high cholesterol, or both. Not getting enough exercise or physical activity. Being overweight. Having too much fat, sugar, calories, or salt (sodium) in your diet. Drinking too much alcohol. Some risk factors for high blood pressure may be difficult or impossible to change. Some of these factors include: Having chronic kidney disease. Having a family history of high blood pressure. Age. Risk increases with age. Race. You may be at higher risk if you are . Gender. Men are at higher risk than women before age 45. After age 65, women are at higher risk than men. Having obstructive sleep apnea. Stress. What are the signs or symptoms? High blood pressure may not cause symptoms. Very high blood pressure (hypertensive crisis) may cause: Headache. Anxiety. Shortness of breath. Nosebleed. Nausea and vomiting. Vision changes. Severe chest pain. Seizures. How is this diagnosed? This condition is diagnosed by measuring your blood pressure while you are seated, with your arm resting on a flat surface, your legs uncrossed, and your feet flat on the floor. The cuff of the bloodpressure monitor will be placed directly against the skin of your upper arm at the level of your heart. It should be measured at least twice using the same arm. Certain conditions can cause a difference in blood pressure between your right and left arms. Certain factors can cause blood pressure readings to be lower or higher than normal for a short period of time: When your blood pressure is higher when you are in a health care provider's office than when you are at home, this is called white coat hypertension. Most people with this condition do not need medicines. When your blood pressure is higher at home than when you are in a health care provider's office, this is called masked hypertension. Most people with this condition may need medicines to control blood pressure. If you have a high blood pressure reading during one visit or you have normal blood pressure with other risk factors, you may be asked to: Return on a different day to have your blood pressure checked again. Monitor your blood pressure at home for 1 week or longer. If you are diagnosed with hypertension, you may have other blood or imaging tests to help your health care provider understand your overall risk for other conditions. How is this treated? This condition is treated by making healthy lifestyle changes, such as eating healthy foods, exercising more, and reducing your alcohol intake. Your health care provider may prescribe medicine if lifestyle changes are not enough to get your blood pressure under control, and if: Your systolic blood pressure is above 130. Your diastolic blood pressure is above 80. Your personal target blood pressure may vary depending on your medical conditions, your age, and other factors. Follow these instructions at home: Eating and drinking Eat a diet that is high in fiber and potassium, and low in sodium, added sugar, and fat. An exampleeating plan is called the DASH (Dietary Approaches to Stop Hypertension) diet. To eat this way: ?Eat plenty of fresh fruits and vegetables. Try to fill one half of your plate at each meal with fruits and vegetables. ?Eat whole grains, such as whole-wheat pasta, brown rice, or whole-grain bread. Fill about one fourth of your plate with whole grains. ?Eat or drink low-fat dairy products, such as skim milk or low-fat yogurt. ?Avoid fatty cuts of meat, processed or cured meats, and poultry with skin. Fill about one fourth of your plate with lean proteins, such as fish, chicken without skin, beans, eggs, or tofu. ?Avoid pre-made and processed foods. These tend to be higher in sodium, added sugar, and fat. Reduce your daily sodium intake. Most people with hypertension should eat less than 1,500 mg of sodium a day. Do not drink alcohol if: ?Your health care provider tells you not to drink. ?You are , may be , or are planning to become . If you drink alcohol: ?Limit how much you use to: ?0 1 drink a day for women. ?0 2 drinks a day for men. ?Be aware of how much alcohol is in your drink. In the [place] one drink equals one 12 oz bottle of beer (355 mL), one 5 oz glass of wine (148 mL), or one 1 oz glass of hard liquor (44 mL). Lifestyle Work with your health care provider to maintain a healthy body weight or to lose weight. Ask what an ideal weight is for you. Get at least 30 minutes of exercise most days of the week. Activities may include walking, swimming, or biking. Include exercise to strengthen your muscles (resistance exercise), such as Pilates or lifting weights, as part of your weekly exercise routine. Try to do these types of exercises for 30 minutes at least 3 days a week. Do not use any products that contain nicotine or tobacco, such as cigarettes, e- cigarettes, and chewing tobacco. If you need help quitting, ask your health care provider. Monitor your blood pressure at home as told by your health care provider. Keep all follow-up visits as told by your health care provider. This is important. Medicines Take uaiw-bcq-vtrbxyp and prescription medicines only as told by your health care provider. Follow directions carefully. Blood pressure medicines must be taken as prescribed. Do not skip doses of blood pressure medicine. Doing this puts you at risk for problems and can makethe medicine less effective. Ask your health care provider about side effects or reactions to medicines that you should watch for. Contact a health care provider if you: Think you are having a reaction to a medicine you are taking. Have headaches that keep coming back (recurring). Feel dizzy. Have swelling in your ankles. Have trouble with your vision. Get help right away if you: Develop a severe headache or confusion. Have unusual weakness or numbness. Feel faint. Have severe pain in your chest or abdomen. Vomit repeatedly. Have trouble breathing. Summary Hypertension is when the force of blood pumping through your arteries is too strong. If this condition is not controlled, it may put you at risk for serious complications. Your personal target blood pressure may vary depending on your medical conditions, your age, and other factors. For most people, a normal blood pressure is less than 120/80. Hypertension is treated with lifestyle changes, medicines, or a combination of both. Lifestyle changes include losing weight, eating a healthy, low-sodium diet, exercising more, and limiting alcohol. This information is not intended to replace advice given to you by your health care provider. Make sure you discuss any questions you have with your health care provider. Document Released: 08/17/2006 Document Revised: 04/27/2019 Document Reviewed: 04/27/2019 [employer] Patient Education 2020 [employer]. Follow Up Care 05/24/2022 13:54:41 With:RAZIA MAYA DO Address: [address] [place] [address]- When:5 to 7 days Comments:Follow-up with primary care physician as an outpatient. You will need your kidney numbers recheckedand your blood pressure rechecked to determine further adjustments to your medications. Call to make an appointment. With:ADELINA GUERRA DO Address: [address] [facility] [place] [place] [address]- When:Within 2 Week(s) Comments:Follow-up with nephrology if needed. Discuss with your primary care physician after repeat labs. With:PRABHU GREWAL MD Address: [address] [facility] [address] [facility] [place] [phone] When:Within 2 Week(s) Comments:Follow-up with your security nurse or cardiology at [facility] as an outpatient. Call to make an appointment. [facility] 09-27-2022 Note Discharge Instructions Thank you for allowing [facility] to assist you with your healthcare needs. The following is importantdischarge information regarding your hospital visit. Your Care Team RAZIA MAYA DO Your Diagnosis Headache HTN - Hypertension What to do next Instructions From Your Doctor You were seen for elevated blood pressure. You initially were in the ICU and required IV medication. You have been continued on your home amlodipine, carvedilol, and isosorbide as indicated. Medications that can hurt your kidneys, including your home chlorthalidone and losartan are held at this time due to elevated kidney numbers. Complete repeat labs in 2 to 3 days to reassess your kidney numbers and have your blood pressure rechecked with your primary doctor. Based on your repeat labs and repeat blood pressure you may need further adjustments to your medications. You have also been given follow-up information for cardiology and nephrology. Call your doctor or present to the ER for any new or worsening symptoms. Follow Up Appointments Follow Up with RAZIA MAYA DO When Within 5 to 7 days Why: Follow-up with primary care physician as an outpatient. You will need your kidney numbers rechecked and your blood pressure rechecked to determine further adjustments to your medications. Call to make an appointment. Where: [address] [place] [address]- Follow Up with ADELINA GUERRA DO When In 2 weeks Why: Follow-up with nephrology if needed. Discuss with your primary care physician after repeat labs. Where: [address] [facility] [place] [place] [address]- Follow Up with PRABHU GREWAL MD When In 2 weeks Why: Follow-up with your security nurse or cardiology at [facility] as an outpatient. Call to make an appointment. Where: [address] [facility] [address] [facility] [place] [phone] The Following Activity and Diet Have Been Ordered for You Discharge Activity - Ordered -- NO activity restrictions, 05/27/22 18:25:00 EDT Discharge Diet - Ordered -- Type of Diet: Regular, 05/27/22 18:25:00 EDT The Following Equipment Has Been Ordered for You No qualifying data available. The Following Treatments Have Been Ordered for You Discharge Labs Discharge Outpatient Labwork - Ordered -- BMP, OMAR, follow-up within: 2-4 days, Results Notify to: RAZIA MAYA DO, 05/27/22 18:27:00 EDT Discharge Radiology No qualifying data available. Other Therapies No qualifying data available. Post Acute Orders No qualifying data available. Someone Will Contact You Regarding These Home Health Referrals No home referrals have been ordered for you. No one will call you. Allergies clindamycin sulfa drug Medications Please ask your primary doctor or pharmacist before taking any other medication not listed, including over the counter drugs, herbal medications, vitamins and or supplements as they may interact withyour home medications. What How Much When Instructions Last Dose Unchanged amLODIPine (amLODIPine 10 mg oral tablet) 1 tab(s) by mouth Once a day Unchanged ascorbic acid (Vitamin C 500 mg oral tablet) 1 tab(s) by mouth Once a day with clare hips Unchanged aspirin (aspirin 81 mg oral delayed release tablet) 1 tab(s) by mouth Every day Unchanged carbidopa/ entacapone/ levodopa (carbidopa/ entacapone/ levodopa 50 mg-200 mg-200 mg oraltablet) 1 tab(s) by mouth Three (3) times a day Unchanged carvedilol (carvedilol 25 mg oral tablet) 1.5 tab(s) by mouth Two (2) times a day Unchanged ergocalciferol (Vitamin D2 50 mcg (2000 intl units) oral capsule) 1 cap by mouth Once a day with food Unchanged isosorbide mononitrate (isosorbide mononitrate 60 mg oral tablet, extended release) 1 tab(s) by mouth Once a day (in the morning) Unchanged magnesium gluconate (magnesium gluconate 250 mg oral tablet) 1 tab(s) by mouth Every day Unchanged pramipexole (pramipexole 0.25 mg oral tablet) 1 tab(s) by mouth Three (3) times a day Unchanged primidone (primidone 50 mg oral tablet) 1 tab(s) by mouth Two (2) times a day What How Much When Comments Stop Taking chlorthalidone (chlorthalidone 25 mg oral tablet) TAKE 1 TABLET BY MOUTH EVERY OTHER DAY Stop Taking losartan (losartan 100 mg oral tablet) 1 tab(s) by mouth Once a day Stop Taking metaxalone (metaxalone 800 mg oral tablet) 1 tab(s) by mouth Every 8 hours as needed for as needed for pain Stop Taking tiZANidine (tiZANidine 2 mg oral capsule) 1 cap by mouth Every 8 hours as needed for as needed for muscle spasm Duration: 30 Days Please take this list to your next doctor s visit. Bring all medications you take, including over the counter medications, herbals and other supplements with you to your doctor s visit. Patients and families are reminded to discard old lists and to update any records with all medication providers or retail pharmacies. Education Materials Hypertension, Adult High blood pressure (hypertension) is when the force of blood pumping through the arteries is too strong. The arteries are the blood vessels that carry blood from the heart throughout the body. Hypertension forces the heart to work harder to pump blood and may cause arteries to become narrow or stiff. Untreated or uncontrolled hypertension can cause a heart attack, heart failure, a stroke, kidneydisease, and other problems. A blood pressure reading consists of a higher number over a lower number. Ideally, your blood pressure should be below 120/80. The first ( top ) number is called the systolic pressure. It is a measure of the pressure in your arteries as your heart beats. The second ( bottom ) number is called the diastolic pressure. It is a measure of the pressure in your arteries as the heart relaxes. What are the causes? The exact cause of this condition is not known. There are some conditions that result in or are related to high blood pressure. What increases the risk? Some risk factors for high blood pressure are under your control. The following factors may make you more likely to develop this condition: Smoking. Having type 2 diabetes mellitus, high cholesterol, or both. Not getting enough exercise or physical activity. Being overweight. Having too much fat, sugar, calories, or salt (sodium) in your diet. Drinking too much alcohol. Some risk factors for high blood pressure may be difficult or impossible to change. Some of these factors include: Having chronic kidney disease. Having a family history of high blood pressure. Age. Risk increases with age. Race. You may be at higher risk if you are . Gender. Men are at higher risk than women before age 45. After age 65, women are at higher risk than men. Having obstructive sleep apnea. Stress. What are the signs or symptoms? High blood pressure may not cause symptoms. Very high blood pressure (hypertensive crisis) may cause: Headache. Anxiety. Shortness of breath. Nosebleed. Nausea and vomiting. Vision changes. Severe chest pain. Seizures. How is this diagnosed? This condition is diagnosed by measuring your blood pressure while you are seated, with your arm resting on a flat surface, your legs uncrossed, and your feet flat on the floor. The cuff of the bloodpressure monitor will be placed directly against the skin of your upper arm at the level of your heart. It should be measured at least twice using the same arm. Certain conditions can cause a difference in blood pressure between your right and left arms. Certain factors can cause blood pressure readings to be lower or higher than normal for a short period of time: When your blood pressure is higher when you are in a health care provider's office than when you are at home, this is called white coat hypertension. Most people with this condition do not need medicines. When your blood pressure is higher at home than when you are in a health care provider's office, this is called masked hypertension. Most people with this condition may need medicines to control blood pressure. If you have a high blood pressure reading during one visit or you have normal blood pressure with other risk factors, you may be asked to: Return on a different day to have your blood pressure checked again. Monitor your blood pressure at home for 1 week or longer. If you are diagnosed with hypertension, you may have other blood or imaging tests to help your health care provider understand your overall risk for other conditions. How is this treated? This condition is treated by making healthy lifestyle changes, such as eating healthy foods, exercising more, and reducing your alcohol intake. Your health care provider may prescribe medicine if lifestyle changes are not enough to get your blood pressure under control, and if: Your systolic blood pressure is above 130. Your diastolic blood pressure is above 80. Your personal target blood pressure may vary depending on your medical conditions, your age, and other factors. Follow these instructions at home: Eating and drinking Eat a diet that is high in fiber and potassium, and low in sodium, added sugar, and fat. An exampleeating plan is called the DASH (Dietary Approaches to Stop Hypertension) diet. To eat this way: ? Eat plenty of fresh fruits and vegetables. Try to fill one half of your plate at each meal with fruits and vegetables. ? Eat whole grains, such as whole-wheat pasta, brown rice, or whole-grain bread. Fill about one fourth of your plate with whole grains. ? Eat or drink low-fat dairy products, such as skim milk or low-fat yogurt. ? Avoid fatty cuts of meat, processed or cured meats, and poultry with skin. Fill about one fourth ofyour plate with lean proteins, such as fish, chicken without skin, beans, eggs, or tofu. ? Avoid pre-made and processed foods. These tend to be higher in sodium, added sugar, and fat. Reduce your daily sodium intake. Most people with hypertension should eat less than 1,500 mg of sodium a day. Do not drink alcohol if: ? Your health care provider tells you not to drink. ? You are , may be , or are planning to become . If you drink alcohol: ? Limit how much you use to: ? 0 1 drink a day for women. ? 0 2 drinks a day for men. ? Be aware of how much alcohol is in your drink. In the [place] one drink equals one 12 oz bottle of beer (355 mL), one 5 oz glass of wine (148 mL), or one 1 oz glass of hard liquor (44 mL). Lifestyle Work with your health care provider to maintain a healthy body weight or to lose weight. Ask what an ideal weight is for you. Get at least 30 minutes of exercise most days of the week. Activities may include walking, swimming, or biking. Include exercise to strengthen your muscles (resistance exercise), such as Pilates or lifting weights, as part of your weekly exercise routine. Try to do these types of exercises for 30 minutes at least 3 days a week. Do not use any products that contain nicotine or tobacco, such as cigarettes, e- cigarettes, and chewing tobacco. If you need help quitting, ask your health care provider. Monitor your blood pressure at home as told by your health care provider. Keep all follow-up visits as told by your health care provider. This is important. Medicines Take velo-cdi-cewrzxf and prescription medicines only as told by your health care provider. Follow directions carefully. Blood pressure medicines must be taken as prescribed. Do not skip doses of blood pressure medicine. Doing this puts you at risk for problems and can makethe medicine less effective. Ask your health care provider about side effects or reactions to medicines that you should watch for. Contact a health care provider if you: Think you are having a reaction to a medicine you are taking. Have headaches that keep coming back (recurring). Feel dizzy. Have swelling in your ankles. Have trouble with your vision. Get help right away if you: Develop a severe headache or confusion. Have unusual weakness or numbness. Feel faint. Have severe pain in your chest or abdomen. Vomit repeatedly. Have trouble breathing. Summary Hypertension is when the force of blood pumping through your arteries is too strong. If this condition is not controlled, it may put you at risk for serious complications. Your personal target blood pressure may vary depending on your medical conditions, your age, and other factors. For most people, a normal blood pressure is less than 120/80. Hypertension is treated with lifestyle changes, medicines, or a combination of both. Lifestyle changes include losing weight, eating a healthy, low-sodium diet, exercising more, and limiting alcohol. This information is not intended to replace advice given to you by your health care provider. Make sure you discuss any questions you have with your health care provider. Document Released: 08/17/2006 Document Revised: 04/27/2019 Document Reviewed: 04/27/2019 Elsevier Patient Education 2020 [employer] Additional Information VACCINATE! IT SAVES LIVES! Members of the community who have not yet received the COVID-19 vaccine and would like to receive it can visit one of [facility] vaccine clinics. There are many vaccine clinic locations within the [facility]. For locations and available times, please visit [email or web address] It is important to note that some COVID mobile vaccine clinics are held outdoors and may be canceled in rainy or stormy conditions. To learn more about pediatric vaccinations (ages 5-11), we invite you to visit the [employer] webpage. [email or web address] [email or web address] learn more about the COVID-19 vaccine, we invite you to visit the [employer] website for a list of frequently asked questions. [email or web address] [facility] Patient Portal Access Instructions: Stay connected with your healthcare team and access your personal medical information anytime with the [facility] Patient Portal.If you would like a full copy of your medical records, please contact the [facility] Medical Records Department, Thursday through Thursday between 8a.m. and 4:30p.m. Please follow the directions below to access the portal: 1.Access the email account you provided upon registration to the [facility].2.Look for an invitation email from [facility].3.Open the email and access the invitation link: Accept Invitation to [facility]4.Fill in the required white to create your account. Sign into [email or web address] with your username and password that you created in the above steps to stay up to date. You can then view a summary of results, a summary of your visits, and the ability to download your summaries to your computer or send the information securely to a physician. Remember that your healthcare information is confidential, so carefully consider who you will allow to register on the [facility] Patient Portal for access to your information. You can also access the [facility] Patient Portal on the Contactually. Simply click on Health Records under [employer] and then click on the [employer] logo. HOW TO SAFELY DISPOSE OF PRESCRIPTION MEDICATIONS Please use one of the following methods to safely dispose of your unused medications. 1.Use a drug disposal kit: the drug disposal pouch allows you to safely discard your old and unuseddrugs. Ask your nurse to give you one when you are discharged.2.Visit a local take-back location: Many local pharmacies and police departments have programs that collect old and unwanted prescriptiondrugs. Call your local pharmacy or go to http://appssavvy.Yumber/1W0My8z to find one close to you.3.Make use of household items: Use cat litter or old coffee grounds to dispose medications if other options arenot available. Mix your drugs with these household products, seal them in an airtight container andthrow it into the garbage. Call [facility]: [phone] to be sure your drugs can be disposed of in this way. Some medicines may require a different approach.4.Never flush your medications down the toilet. IF YOU HAVE BEEN PRESCRIBED AN OPIOID FOR PAIN If you have been prescribed an opioid (such as hydrocodone, oxycodone or morphine), it is critical to understand the possible side effects and risks of opioid pain medications. Even when taken as directed, opioids can have several side effects including: Tolerance, meaning you might need to take more of a medication for the same pain relief. Nausea, vomiting and/or constipation. Sleepiness, dizziness, dry mouth, confusion, depression or itching. Physical dependence, meaning you have withdrawal symptoms when a medication is stopped, can develop within a few days. KNOW YOUR RESPONSIBILITIES It is important to know exactly how much and how often to take the opioid pain medications you are prescribed. Never take opioids in higher amounts or more often than prescribed. Do not combine opioids with alcohol or other drugs that cause drowsiness, such as benzodiazepines, also known as benzos, including diazepam and alprazolam, muscle relaxants or sleep aids. Never sell or share prescription opioids. This is illegal. Store opioids in a secure place and out of reach of others (including children, family, friends and visitors). The last page of this document has been signed and retained as a CHART COPY. Signatures Patient Education Materials Hypertension, Adult Medication Leaflets My discharge plan and instructions have been reviewed and explained to me and I,CAROLYN ABBOTTd my current condition and have read and understand these discharge instructions. I have received a written copy of the plan/instructions. If I have questions, I am aware that I should contact my doctor. 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 Signature: Date/Time: Relationship to Patient: Witness Name/Signature: Date/Time: [id number] Discharge summary Date of Service May 27, 2022 Discharge Diagnosis Hypertensive emergency Acute kidney injury on chronic kidney disease History of Parkinson's disease Peripheral vascular disease History of obstructive sleep apnea on CPAP Hospital Course 71-year-old male with past medical history significant for hypertension, peripheral vascular disease, obstructive sleep apnea, remote testicular cancer status post orchiectomy and chemotherapy who presented initially on 05/24 with headache. Patient had elevated blood pressure in the 200s and decidedto present for evaluation. CT head at presentation with no acute intracranial abnormality. At presentation there was initial concern for acute CHF. Initial chest x-ray demonstrated central pulmonary vascular prominence and interstitial markings. No large pleural effusion. Patient was initially given a total of 80 mg IV Lasix. Repeat chest x-ray with improvement of patient. Euvolemic on exam. Patient was initially started on nicardipine drip and was admitted to the medical ICU. Patient was transferred to medical floor on 05/26. Patient was resumed on his home Norvasc and Coreg and Cardene drip was discontinued. Patient's blood pressure improved significantly. Patient did develop acute kidney injury during hospitalization likely secondary to a decrease in his blood pressure. He is also been given a dose of losartan prior to development of acute kidney injury. Renal ultrasound completed on 05/26 demonstrates no significant arterial stenosis involving the right or left renal arteries. Consistent with less than 60% stenosis. Patient's home losartan and chlorthalidone were held. Patient's renal function was stable on repeat. Discussed monitoring patient overnight to reassess renal function and determine further adjustments to his blood pressure medications. Patient was hemodynamically stable with improved blood pressure. He was urinating without difficulty. Patient without having any further headache and no chest pain. Patient did not want to stay in the hospital any longer as he has outpatient imaging scheduled that he is unable to cancel. Patient is compliant with his medications as an outpatient and follows with cardiology and primary care physician. After further discussion with patient and his , patient discharged in improved condition on his home amlodipine, carvedilol, and Imdur. Patient is to complete repeat labs in 2 to 3 days and also repeat blood pressure check with his primary care physician as an outpatient. Based on labs and repeat blood pressure, primarycare physician can adjust patient's blood pressure medications and consider resuming losartan and chlorthalidone. Patient did also request referral to local security nurse as his security nurse currentlyis quite a distance from him. Patient was also given information for follow-up with nephrology if needed if his renal function is not improving. Allergies clindamycin sulfa drug Procedures No procedures were performed during this admission Consults No qualifying data available. Imaging Results and Diagnostics XR Chest 1 View Result Date: May 25, 2022 Verified By: ANNA KEITH MD CLINICAL STATEMENT: IMPRESSION: Improved inspiration and bibasilar aeration with decreased vascular congestion likely on the basis of improving CHF/edema. Minimal bibasilar atelectasis. I have personally reviewed the images of this examination and agree with the resident's findings and interpretation. XR Chest 1 View Result Date: May 24, 2022 Verified By: MARA LEO MD CLINICAL STATEMENT: IMPRESSION: Findings suggestive of CHF. Left basilar opacity could reflect superimposed pneumonia versus atelectasis. I have personally reviewed the images of this examination and agree with the resident's findings and interpretation. CT Head or Brain w/o Contrast Result Date: May 24, 2022 Verified By: SHARLENE BARRIOS MD CLINICAL STATEMENT: IMPRESSION: No acute intracranial abnormality. Vertebrobasilar dolichoectasia. Physical Exam Vitals and Measurements T: 36.7 C (Oral) TMIN: 36.4 C (Oral) TMAX: 36.8 C (Oral) HR: 55(Monitored) RR: 18 BP: 160/98 SpO2: 94% Weight Dosing Weight: 113 kg (05/24/22) Dosing Weight: 113 kg (05/24/22) General Appearance: Alert, oriented, well appearing Head: Normocephalic, atraumatic EENT: PERRLA, EOMI. Mucus membranes moist Neck: Supple, no JVD Cardiac: Regular rate and rhythm. Normal S1/S2. No murmurs, rubs, gallops appreciated. Lungs: Lungs clear to auscultation bilaterally. No rhonchi, wheezing, or rales appreciated. Abdomen: Soft, nontender, nondistended. BS *4. Musculoskeletal: Strength 5/5 bilaterally in upper and lower extremities. Extremities: No LE edema. Neurological: AO*3, CN 2-12 intact. Skin: No excoriations, lacerations, rash, or erythema Psychiatric: Normal affect Pending Labs and Studies No pending labs or studies Code Status Code Status - Ordered -- 05/25/22 19:22:00 EDT, Full Code, Constant Order Admission Date May 24, 2022 Discharge Date May 27, 2022 Patient Instructions You were seen for elevated blood pressure. You initially were in the ICU and required IV medication. You have been continued on your home amlodipine, carvedilol, and isosorbide as indicated. Medications that can hurt your kidneys, including your home chlorthalidone and losartan are held at this time due to elevated kidney numbers. Complete repeat labs in 2 to 3 days to reassess your kidney numbers and have your blood pressure rechecked with your primary doctor. Based on your repeat labs and repeat blood pressure you may need further adjustments to your medications. You have also been given follow-up information for cardiology and nephrology. Call your doctor or present to the ER for any new or worsening symptoms. Medications Unchanged amLODIPine (amLODIPine 10 mg oral tablet)1 tab(s) by mouth once a day. ascorbic acid (Vitamin C 500 mg oral tablet)1 tab(s) by mouth once a day. with clare hips. aspirin (aspirin 81 mg oral delayed release tablet)1 tab(s) by mouth every day. carbidopa/entacapone/levodopa (carbidopa/entacapone/levodopa 50 mg-200 mg-200 mg oral tablet)1 tab(s) by mouth three (3) times a day. carvedilol (carvedilol 25 mg oral tablet)1.5 tab(s) by mouth two (2) times a day. ergocalciferol (Vitamin D2 50 mcg (2000 intl units) oral capsule)1 cap by mouth once a day. with food. isosorbide mononitrate (isosorbide mononitrate 60 mg oral tablet, extended release)1 tab(s) by mouth once a day (in the morning). magnesium gluconate (magnesium gluconate 250 mg oral tablet)1 tab(s) by mouth every day. pramipexole (pramipexole 0.25 mg oral tablet)1 tab(s) by mouth three (3) times a day. primidone (primidone 50 mg oral tablet)1 tab(s) by mouth two (2) times a day. Discontinued chlorthalidone (chlorthalidone 25 mg oral tablet)TAKE 1 TABLET BY MOUTH EVERY OTHER DAY. losartan (losartan 100 mg oral tablet)1 tab(s) by mouth once a day. metaxalone (metaxalone 800 mg oral tablet)1 tab(s) by mouth every 8 hours as needed as needed for pain. tiZANidine (tiZANidine 2 mg oral capsule)1 cap by mouth every 8 hours as needed as needed for muscle spasm for 30 Days. Follow Up Follow Up with RAZIA MAYA DO When Within 5 to 7 days Why: Follow-up with primary care physician as an outpatient. You will need your kidney numbers rechecked and your blood pressure rechecked to determine further adjustments to your medications. Call to make an appointment. Where: [address] [place] [address]- Follow Up with ADELINA GUERRA DO When In 2 weeks Why: Follow-up with nephrology if needed. Discuss with your primary care physician after repeat labs. Where: [address] [facility] [place] [place] [address]- Follow Up with PRABHU GREWAL MD When In 2 weeks Why: Follow-up with your security nurse or cardiology at [facility] as an outpatient. Call to make an appointment. Where: [address] [facility] [place] [address] [phone] Follow Up Labs/Studies Discharge Labs Discharge Outpatient Labwork - Ordered -- BMP, OMAR, follow-up within: 2-4 days, Results Notify to: RAZIA MAYA DO, 05/27/22 18:27:00 EDT Discharge Studies No Follow-up Studies Discharge Diet Discharge Diet - Ordered -- Type of Diet: Regular, 05/27/22 18:25:00 EDT Discharge Activity Discharge Activity - Ordered -- NO activity restrictions, 05/27/22 18:25:00 EDT Condition on Discharge Improved Discharge Disposition Home Information Provided To Patient and Time Spent >30 minutes Digitally Signed by LESTER CLIFFORD MD on 05/27/2022 09:44 PM [id number] Note Date of Service 05/26/2022 Chief Complaint Elevated blood pressure Subjective 71-year-old male who has past medical history of hypertension, peripheral vascular disease, Parkinson's, obesity, spinal stenosis. The patient also states that he has always had abnormal kidney numbers but these have been stable over the years. He follows up with a security nurse for what seems to be blood pressure control, patient states that he had recent stress test and heart cath which did not show any significant coronary artery disease. His blood pressure medications was adjusted recently with addition of chlorthalidone because his security nurse wants his blood pressure to be 130/80 mmHg. The patient presented to the [facility] on 05/24/2022 with hypertensive emergency. He initially on presentation had a blood pressure reading of 210/99 mmHg, the emergency room was concern for congestive heart failure and started him on a Cardizem drip and also gave 80 mg of IV Lasix. With the Cardizem drip his blood pressure dropped from 210/99 mmHg to 110/66 mmHg within less than 6 hours. He was admitted to the intensive care unit where IV antihypertensive was discontinued and he has beenrestarted on oral medications. Apart from his hypertension he also presented with abnormal kidney function with creatinine of 1.45 with a GFR of 48 [not sure if this is his baseline], his creatinine has trended up over the last 48 hours to 2.29 with a GFR of 28. He did renal Dopplers which did not show any significant stenosis. This morning I saw the patient his headache had resolved, he states that he is feeling back to his baseline. Tolerating oral intake, no nausea or vomiting. Denies any chest pain, shortness of breath or palpitations. Objective Vitals and Measurements T: 36.7 C (Oral) TMIN: 36.6 C (Oral) TMAX: 36.8 C (Oral) HR: 63(Monitored) RR: 22 BP: 162/85 SpO2: 92% Intake and Output 7AM Yesterday to 7AM Today Intake and Output (Last 24 hours) Intake Oral Intake 240.00 Output Urine Voided 400.00 Stool Count 1.00 Emesis Count 0.00 Total Summary Total Intake 240.00 Total Output 400.00 Fluid Balance -160.00 Physical Exam GENERAL: Pt is comfortable in bed. Appears in no acute distress. HEENT: Mucous membranes pink and moist NEURO: Alert and oriented X 3, fine resting tremors noted CVS: S1 & S2 audible, Regular Rate and Rhythm CHEST : No accesory muscle use, equal air entry bilaterally, no adventitious breath sounds GI: Normoactive BS, abdomen soft and non tender EXTREMITIES: No LE edema Weight Dosing Weight: 113 kg (05/24/22) Dosing Weight: 113 kg (05/24/22) Medications Medications (10) Active Scheduled: (9) amLODIPine 10 mg tablet 10 mg 1 tab(s), Oral, qDay amLODIPine 10 mg tablet 10 mg 1 tab(s), Oral, qDay ascorbic acid 500 mg tablet 500 mg 1 tab(s), Oral, qDay aspirin 81 mg EC 81 mg 1 tab(s), Oral, Daily carbidopa/entacapone/levodopa 50 mg-200 mg-200 mg tablet 1 tab(s), Oral, TID carvedilol 25 mg tablet 37.5 mg 1.5 tab(s), Oral, BID heparin 5,000 units/mL (1 mL) vial 5,000 unit(s) 1 mL, Subcutaneous, q8h pantoprazole 40 mg VIAL 40 mg, IV Push, qDayAC pramipexole 0.25 mg Tablet 0.25 mg 1 tab(s), Oral, TID Continuous: (0) PRN: (1) acetaminophen 325 mg Tablet 650 mg 2 tab(s), Oral, q4h Lab Results 05/26 04:27 WBC: 5.2 Hgb: 12.6 L Hct: 36.3 L Platelet: 157 Neutrophil %: 63.2 Glucose Level: 111 Sodium Level: 135 L Potassium Level: 4.8 BUN: 41.0 H Creatinine Lvl (s): 2.29 H 05/24 23:36 WBC: 6.5 Hgb: 13.1 Hct: 37.8 L Platelet: 180 Neutrophil %: 76.7 H Glucose Level: 111 Sodium Level: 138 Potassium Level: 4.6 BUN: 35.0 H Creatinine Lvl (s): 1.51 H Imaging Results and Diagnostics XR Chest 1 View Result Date: May 25, 2022 Verified By: ANNA KEITH MD CLINICAL STATEMENT: IMPRESSION: Improved inspiration and bibasilar aeration with decreased vascularcongestion likely onthe basis of improving CHF/edema. Minimal bibasilar atelectasis. I have personally reviewed the images of this examination and agree with theresident's findings and interpretation. XR Chest 1 View Result Date: May 24, 2022 Verified By: MABEL BRAGA, MARA Irvin CLINICAL STATEMENT: IMPRESSION: Findings suggestive of CHF. Left basilar opacity could reflect superimposed pneumonia versus atelectasis. I have personally reviewed the images of this examination and agree with the resident's findings and interpretation. CT Head or Brain w/o Contrast Result Date: May 24, 2022 Verified By: SHARLENE BARRIOS MD CLINICAL STATEMENT: IMPRESSION: No acute intracranial abnormality. Vertebrobasilar dolichoectasia. EKG No qualifying data available. Assessment/Plan 1. Hypertensive emergency 2. OMAR versus CKD 3. History of Parkinson's disease 4. History of PATRICIO on CPAP 5. DVT prophylaxis Plan: Patient's creatinine climbed up to 2.29 today, on review of chart his systolic blood pressure was dropped by approximately 100 mmHg within 4 hours of coming into the emergency room. This likely resulted in decreased renal perfusion which explains his worsening kidney function. His blood pressure this morning was up to 160 systolic, he has been tolerating oral intake, clinically seems euvolemic. We will continue current encourage oral intake, discontinue IV fluids. Avoid nephrotoxic agents such as NSAIDs and unnecessary IV contrast. Continue to monitor kidney function, if not improving tomorrow will ask nephrology to see. He had renal artery Dopplers done today which did not show any significant stenosis. He has been restarted on home dose of Coreg and amlodipine. We will continue to monitor his blood pressure and if needed will restart Imdur. Hold off on losartan and chlorthalidone for now. Goal blood pressure for this patient who has Parkinson's disease I believe should be around 150/90 mmHg. He does not seem to have any underlying, at least not significant, cardiac disease so I think 150/90 mmHg should be fine. Continue aspirin Heparin for DVT prophylaxis Repeat morning labs Digitally Signed by ASHLY ERNANDEZ MD on 05/26/2022 11:26 AM [id number] Note ORIGINAL EXAMINATION: ONE XRAY VIEW OF THE CHEST 05/25/2022 11:11 am COMPARISON: Chest x-ray 05/24/2022. HISTORY: ORDERING SYSTEM PROVIDED HISTORY: Reason for Exam: shortness of breath FINDINGS: There is improved depth of inspiration on today's exam with improved aeration within the lung bases. Minimal residual bibasilar atelectasis. The cardiomediastinal silhouette is mildly enlarged but stable. Improved bilateral central venous vascular congestion with improved bilateral interstitial opacities. No large pleural effusion or pneumothorax. The osseous structures appear intact. IMPRESSION: Improved inspiration and bibasilar aeration with decreased vascular congestion likely on the basis of improving CHF/edema. Minimal bibasilar atelectasis. I have personally reviewed the images of this examination and agree with the resident's findings and interpretation. Interpreted by: Anna Keith MD Preliminary Report By: Jesús Hunter Electronically signed By Anna Keith MD Dictated Date: 05/25/2022 9:00:12 PM Prelim Date: 05/25/2022 9:03:11 PM Sign Date: 05/25/2022 9:19:02 PM Ordering Provider: [facility]09-25-2022 History and physical note Chief Complaint Patient states headache with elevated blood pressure since noon today. States one episode of vomiting this afternoon. History of Present Illness 71-year-old male presenting to [facility] ED with chief complaint of headache. He has a pastmedical history significant for hypertension, peripheral vascular disease, obstructive sleep apnea,Parkinson's disease, spinal stenosis and remote testicular cancer (status postorchiectomy and chemotherapy). present at bedside. Patient states that he was doing well today and after going to anHOA meeting with eros, he started having holoacranial headache 10/10 intensity with no radiation. His took his blood pressure at that time that showed a systolic BP of 180. Patient took 2 Tylenol's rechecked his blood pressure, found to have SBP 210. He had some associated nausea but no vomiting. She then decided to bring him to the ED. He denies any blurred vision, dizziness, tinnitus, chest pain, shortness of breath. Both patient and state that he has been compliant with hismedications. Last time he saw his security nurse was last week in [place] where they added chlorthalidone as part of his blood pressure medications. He was already on amlodipine and losartan. In the ED, he had a SBP of 225, rest of his vital signs within normal limits. CBC showed mild anemia of 11.6. BMP significant for creatinine of 1.45, BUN 38, potassium 5.2. proBNP 361. Troponins negative. EKG with sinus rhythm. chest x- ray was done with findings suggestive of CHF. Left basilar opacity which could possibly reflect superimposed pneumonia versus atelectasis. Received a total of [address] head was negative for acute intracranial abnormalities. Patient was started on a Cardizem drip in the ED. Patient admitted to MICU for further management. Review of Systems Constitutional: Denies fever. Denies chills. Denies sweats. Eyes: Denies blurred vision Ears, Nose, Mouth & Throat: Denies difficulty hearing. Denies rhinitis. Denies dysphasia. Denies sore throat. Cardiovascular: Denies chest pain. Denies palpitations Respiratory: Denies shortness of breath. Denies hemoptysis. Denies cough. Gastrointestinal: Denies hematochezia. Denies melena. Denies diarrhea. Denies abdominal pain. Denies fecal incontinence. Denies constipation. Genitourinary: Denies dysuria. Denies nocturia. Denies hematuria. Denies urinary frequency. Denies urinary incontinence. Musculoskeletal: Denies muscular weakness. Denies muscular pain. Skin: Denies abrasions. Denies pruritus. Neurological: Endorsed headache Psychiatric: Denies auditory hallucinations. Denies visual hallucinations. Denies suicidal ideations. Denies homicidal ideations. Endocrine [enies fatigue. Denies weight loss or weight gain. Physical Exam Vitals and Measurements T: 36.8 C (Oral) TMIN: 36.0 C (Oral) TMAX: 36.8 C (Oral) HR: 83(Monitored) RR: 19 BP: 149/85 SpO2: 94% HT: 175.3 cm WT: 113 kg BMI: 36.77 Weight Dosing Weight: 113 kg (05/24/22) Dosing Weight: 113 kg (05/24/22) General Appearance: The patient appears well and is in no apparent distress. Eyes: Pupils equal and reactive. Extraocular eye movements are intact. No scleral icterus or conjunctival injection noted. ENT: Head is atraumatic. Neck: Supple. Trachea is midline. Cardiac: Regular rate and rhythm. No significant murmurs, gallops, or rubs Lungs: Breath sounds are equal and clear bilaterally. No significant wheezes, rhonchi, or rales Abdomen: Soft. No mass, tenderness, guarding, or rebound. No organomegaly or hernia. Bowel sounds are present. No CVA tenderness or flank mass.] Musculoskeletal: Patient has good range of motion of all extremities. The patient has good distal cap refill. Extremities: Edema 3+ bilaterally Neurological: Sensory and motor examination is unremarkable. Cranial nerves II through XII are intact. Deep tendon reflexes are intact. Skin: Warm, dry, and well perfused. Skin is intact without evidence of significant lacerations or sores. Psychiatric: The patient is awake, alert, and oriented x4. Recent and remote memory is intact. Lab Results 05/24 15:17 WBC: 5.5 Hgb: 11.6 L Hct: 32.8 L Platelet: 149 L Neutrophil %: 77.2 H Glucose Level: 113 Sodium Level: 136 Potassium Level: 5.2 H BUN: 38.0 H Creatinine Lvl (s): 1.45 H Imaging Results and Diagnostics XR Chest 1 View Result Date: May 24, 2022 Verified By: MABEL BRAGA, MARA Irvin CLINICAL STATEMENT: IMPRESSION: Findings suggestive of CHF. Left basilar opacity could reflect superimposed pneumonia versus atelectasis. I have personally reviewed the images of this examination and agree with the resident's findings and interpretation. CT Head or Brain w/o Contrast Result Date: May 24, 2022 Verified By: SHARLENE BARRIOS MD CLINICAL STATEMENT: IMPRESSION: No acute intracranial abnormality. Vertebrobasilar dolichoectasia. EKG EC05/24/22: SINUS RHYTHM...normal P axis, V-rate 50- 99 PROLONGED VA INTERVAL...VA >220, V-rate 50- 90 BORDERLINE ECG Electronic Signature: MAKENZIE TA DO 05/24/2022 16:03:26 Assessment/Plan Problem list Hypertensive emergency Acute kidney injury Likely prerenal Dehydration PLAN BP dropped to systolic of 149. We will titrate nicardipine drip. We will resume his home amlodipine 10 mg. We will hold off his home losartan and chlorthalidone in light of his acute kidney injury. We will give IV fluids with LR at 100 cc. We will check UA. We will monitor electrolytes and replace as necessary. We will resume home meds as appropriate. DVT prophylaxis: Heparin Full CODE STATUS For further clarification please refer to attendings addendum. Problem List/Past Medical History Ongoing Gout Hard of hearing Hypertension Parkinson disease PVD (peripheral vascular disease) Sleep apnea Testicular cancer Historical Apnea, sleep BP+ - Hypertension Parkinson's disease Procedure/Surgical History Bilateral Transforaminal Lumbar epidural injection: 03/11/22 Laser ablation of long saphenous vein: 12/2021 Right Retroperitoneal lymph node dissection: 08/1981 Tonsillectomy: 1955 Right Orchiectomy Medications Home Medications (13) Active amLODIPine 10 mg oral tablet 10 mg = 1 tab(s), Oral, qDay aspirin 81 mg oral delayed release tablet 81 mg = 1 tab(s), Oral, Daily carbidopa/entacapone/levodopa 50 mg-200 mg-200 mg oral tablet 1 tab(s), Oral, TID carvedilol 25 mg oral tablet 37.5 mg = 1.5 tab(s), Oral, BID isosorbide mononitrate 60 mg oral tablet, extended release 60 mg = 1 tab(s), Oral, qAM losartan 100 mg oral tablet 100 mg = 1 tab(s), Oral, qDay magnesium gluconate 250 mg oral tablet 250 mg = 1 tab(s), Oral, Daily metaxalone 800 mg oral tablet 800 mg = 1 tab(s), PRN, Oral, q8h pramipexole 0.25 mg oral tablet 0.25 mg = 1 tab(s), Oral, TID primidone 50 mg oral tablet 50 mg = 1 tab(s), Oral, BID tiZANidine 2 mg oral capsule 2 mg = 1 cap(s), PRN, Oral, q8h Vitamin C 500 mg oral tablet 500 mg = 1 tab(s), Oral, qDay Vitamin D2 50 mcg (2000 intl units) oral capsule 50 mcg = 1 cap(s), Oral, qDay Allergies clindamycin sulfa drug Social History Smoking Status - 11/10/2016 Never smoker Alcohol Use: Never., 04/22/2022 Employment/School Status: Retired., 04/09/2022 Home/Environment Marital Status: ., 04/09/2022 Nutrition/Health Caffeine intake amount: 1 can of pop daily., 04/22/2022 Substance Abuse Use: Never., 04/22/2022 Tobacco Nicotine Use: Never (less than 100 in lifetime). Exposure to Tobacco Smoke Lives in non-smoking home., 04/22/2022 Family History Cancer: Brother. Diabetes mellitus: Mother, Father and Sister. HTN - Hypertension: Mother, Father and Sister. Heart disease: Father and Brother. Hypertension: Brother. Immunizations No qualifying data available. Code Status No qualifying data available. Digitally Signed by PENNY MARQUEZ MD on 05/24/2022 11:51 PM [id number] Note ORIGINAL EXAMINATION: ONE XRAY VIEW OF THE CHEST 05/25/2022 11:11 am COMPARISON: Chest x-ray 05/24/2022. HISTORY: ORDERING SYSTEM PROVIDED HISTORY: Reason for Exam: shortness of breath FINDINGS: There is improved depth of inspiration on today's exam with improved aeration within the lung bases. Minimal residual bibasilar atelectasis. The cardiomediastinal silhouette is mildly enlarged but stable. Improved bilateral central venous vascular congestion with improved bilateral interstitial opacities. No large pleural effusion or pneumothorax. The osseous structures appear intact. IMPRESSION: Improved inspiration and bibasilar aeration with decreased vascular congestion likely on the basis of improving CHF/edema. Minimal bibasilar atelectasis. I have personally reviewed the images of this examination and agree with the resident's findings and interpretation. Interpreted by: Anna Keith MD Preliminary Report By: Jesús Hunter Electronically signed By Anna Keith MD Dictated Date: 05/25/2022 9:00:12 PM Prelim Date: 05/25/2022 9:03:11 PM Sign Date: 05/25/2022 9:19:02 PM Ordering Provider: [facility]09-24-2022 History and physical note Chief Complaint Patient states headache with elevated blood pressure since noon today. States one episode of vomiting this afternoon. History of Present Illness 71-year-old male presenting to [facility] ED with chief complaint of headache. He has a pastmedical history significant for hypertension, peripheral vascular disease, obstructive sleep apnea,Parkinson's disease, spinal stenosis and remote testicular cancer (status postorchiectomy and chemotherapy). present at bedside. Patient states that he was doing well today and after going to anHOA meeting with eros, he started having holoacranial headache 10/10 intensity with no radiation. His took his blood pressure at that time that showed a systolic BP of 180. Patient took 2 Tylenol's rechecked his blood pressure, found to have SBP 210. He had some associated nausea but no vomiting. She then decided to bring him to the ED. He denies any blurred vision, dizziness, tinnitus, chest pain, shortness of breath. Both patient and state that he has been compliant with hismedications. Last time he saw his security nurse was last week in [place] where they added chlorthalidone as part of his blood pressure medications. He was already on amlodipine and losartan. In the ED, he had a SBP of 225, rest of his vital signs within normal limits. CBC showed mild anemia of 11.6. BMP significant for creatinine of 1.45, BUN 38, potassium 5.2. proBNP 361. Troponins negative. EKG with sinus rhythm. chest x- ray was done with findings suggestive of CHF. Left basilar opacity which could possibly reflect superimposed pneumonia versus atelectasis. Received a total of [address] head was negative for acute intracranial abnormalities. Patient was started on a Cardizem drip in the ED. Patient admitted to MICU for further management. Review of Systems Constitutional: Denies fever. Denies chills. Denies sweats. Eyes: Denies blurred vision Ears, Nose, Mouth & Throat: Denies difficulty hearing. Denies rhinitis. Denies dysphasia. Denies sore throat. Cardiovascular: Denies chest pain. Denies palpitations Respiratory: Denies shortness of breath. Denies hemoptysis. Denies cough. Gastrointestinal: Denies hematochezia. Denies melena. Denies diarrhea. Denies abdominal pain. Denies fecal incontinence. Denies constipation. Genitourinary: Denies dysuria. Denies nocturia. Denies hematuria. Denies urinary frequency. Denies urinary incontinence. Musculoskeletal: Denies muscular weakness. Denies muscular pain. Skin: Denies abrasions. Denies pruritus. Neurological: Endorsed headache Psychiatric: Denies auditory hallucinations. Denies visual hallucinations. Denies suicidal ideations. Denies homicidal ideations. Endocrine [enies fatigue. Denies weight loss or weight gain. Physical Exam Vitals and Measurements T: 36.8 C (Oral) TMIN: 36.0 C (Oral) TMAX: 36.8 C (Oral) HR: 83(Monitored) RR: 19 BP: 149/85 SpO2:94% HT: 175.3 cm WT: 113 kg BMI: 36.77 Weight Dosing Weight: 113 kg (05/24/22) Dosing Weight: 113 kg (05/24/22) General Appearance: The patient appears well and is in no apparent distress. Eyes: Pupils equal and reactive. Extraocular eye movements are intact. No scleral icterus or conjunctival injection noted. ENT: Head is atraumatic. Neck: Supple. Trachea is midline. Cardiac: Regular rate and rhythm. No significant murmurs, gallops, or rubs Lungs: Breath sounds are equal and clear bilaterally. No significant wheezes, rhonchi, or rales Abdomen: Soft. No mass, tenderness, guarding, or rebound. No organomegaly or hernia. Bowel sounds are present. No CVA tenderness or flank mass.] Musculoskeletal: Patient has good range of motion of all extremities. The patient has good distal cap refill. Extremities: Edema 3+ bilaterally Neurological: Sensory and motor examination is unremarkable. Cranial nerves II through XII are intact. Deep tendon reflexes are intact. Skin: Warm, dry, and well perfused. Skin is intact without evidence of significant lacerations or sores. Psychiatric: The patient is awake, alert, and oriented x4. Recent and remote memory is intact. Lab Results 05/24 15:17 WBC: 5.5 Hgb: 11.6 L Hct: 32.8 L Platelet: 149 L Neutrophil %: 77.2 H Glucose Level: 113 Sodium Level: 136 Potassium Level: 5.2 H BUN: 38.0 H Creatinine Lvl (s): 1.45 H Imaging Results and Diagnostics XR Chest 1 View Result Date: May 24, 2022 Verified By: MABEL BRAGA, MARA Irvin CLINICAL STATEMENT: IMPRESSION: Findings suggestive of CHF. Left basilar opacity could reflect superimposed pneumonia versus atelectasis. I have personally reviewed the images of this examination and agree with the resident's findings and interpretation. CT Head or Brain w/o Contrast Result Date: May 24, 2022 Verified By: SHARLENE BARRIOS MD CLINICAL STATEMENT: IMPRESSION: No acute intracranial abnormality. Vertebrobasilar dolichoectasia. EKG EC05/24/22: SINUS RHYTHM...normal P axis, V-rate 50- 99 PROLONGED VA INTERVAL...VA >220, V-rate 50- 90 BORDERLINE ECG Electronic Signature: MAKENZIE TA DO 05/24/2022 16:03:26 Assessment/Plan Problem list Hypertensive emergency Acute kidney injury Likely prerenal Dehydration PLAN BP dropped to systolic of 149. We will titrate nicardipine drip. We will resume his home amlodipine 10 mg. We will hold off his home losartan and chlorthalidone in light of his acute kidney injury. We will give IV fluids with LR at 100 cc. We will check UA. We will monitor electrolytes and replace as necessary. We will resume home meds as appropriate. DVT prophylaxis: Heparin Full CODE STATUS For further clarification please refer to attendings addendum. Problem List/Past Medical History Ongoing Gout Hard of hearing Hypertension Parkinson disease PVD (peripheral vascular disease) Sleep apnea Testicular cancer Historical Apnea, sleep BP+ - Hypertension Parkinson's disease Procedure/Surgical History Bilateral Transforaminal Lumbar epidural injection: 03/11/22 Laser ablation of long saphenous vein: 12/2021 Right Retroperitoneal lymph node dissection: 08/1981 Tonsillectomy: 1955 Right Orchiectomy Medications Home Medications (13) Active amLODIPine 10 mg oral tablet 10 mg = 1 tab(s), Oral, qDay aspirin 81 mg oral delayed release tablet 81 mg = 1 tab(s), Oral, Daily carbidopa/entacapone/levodopa 50 mg-200 mg-200 mg oral tablet 1 tab(s), Oral, TID carvedilol 25 mg oral tablet 37.5 mg = 1.5 tab(s), Oral, BID isosorbide mononitrate 60 mg oral tablet, extended release 60 mg = 1 tab(s), Oral, qAM losartan 100 mg oral tablet 100 mg = 1 tab(s), Oral, qDay magnesium gluconate 250 mg oral tablet 250 mg = 1 tab(s), Oral, Daily metaxalone 800 mg oral tablet 800 mg = 1 tab(s), PRN, Oral, q8h pramipexole 0.25 mg oral tablet 0.25 mg = 1 tab(s), Oral, TID primidone 50 mg oral tablet 50 mg = 1 tab(s), Oral, BID tiZANidine 2 mg oral capsule 2 mg = 1 cap(s), PRN, Oral, q8h Vitamin C 500 mg oral tablet 500 mg = 1 tab(s), Oral, qDay Vitamin D2 50 mcg (2000 intl units) oral capsule 50 mcg = 1 cap(s), Oral, qDay Allergies clindamycin sulfa drug Social History Smoking Status - 11/10/2016 Never smoker Alcohol Use: Never., 04/22/2022 Employment/School Status: Retired., 04/09/2022 Home/Environment Marital Status: ., 04/09/2022 Nutrition/Health Caffeine intake amount: 1 can of pop daily., 04/22/2022 Substance Abuse Use: Never., 04/22/2022 Tobacco Nicotine Use: Never (less than 100 in lifetime). Exposure to Tobacco Smoke Lives in non-smoking home., 04/22/2022 Family History Cancer: Brother. Diabetes mellitus: Mother, Father and Sister. HTN - Hypertension: Mother, Father and Sister. Heart disease: Father and Brother. Hypertension: Brother. Immunizations No qualifying data available. Code Status No qualifying data available. Digitally Signed by PENNY MARQUEZ MD on 05/24/2022 11:51 PM [id number] Note ORIGINAL EXAMINATION: ONE XRAY VIEW OF THE CHEST 05/24/2022 2:56 pm COMPARISON: None. HISTORY: ORDERING SYSTEM PROVIDED HISTORY: Reason for Exam: vomiting FINDINGS: The cardiomediastinal silhouette is mildly enlarged. There is central pulmonary vascular prominence and prominence of the interstitial markings. Left basilar opacity. No large pleural effusion. No pneumothorax. Surgical clips project over the right upper quadrant. Osseous structures appear intact. IMPRESSION: Findings suggestive of CHF. Left basilar opacity could reflect superimposed pneumonia versus atelectasis. I have personally reviewed the images of this examination and agree with the resident's findings and interpretation. Interpreted by: Mara Leo MD Preliminary Report By: Ling West Electronically signed By Mara Leo MD Dictated Date: 05/24/2022 3:26:51 PM Prelim Date: 05/24/2022 3:29:45 PM Sign Date: 05/24/2022 4:02:53 PM Ordering Provider: [facility]09-24-2022 Note ORIGINAL EXAMINATION: ONE XRAY VIEW OF THE CHEST 05/24/2022 2:56 pm COMPARISON: None. HISTORY: ORDERING SYSTEM PROVIDED HISTORY: Reason for Exam: vomiting FINDINGS: The cardiomediastinal silhouette is mildly enlarged. There is central pulmonary vascular prominence and prominence of the interstitial markings. Left basilar opacity. No large pleural effusion. No pneumothorax. Surgical clips project over the right upper quadrant. Osseous structures appear intact. IMPRESSION: Findings suggestive of CHF. Left basilar opacity could reflect superimposed pneumonia versus atelectasis. I have personally reviewed the images of this examination and agree with the resident's findings and interpretation. Interpreted by: Mara Leo MD Preliminary Report By: Ling West Electronically signed By Mara Leo MD Dictated Date: 05/24/2022 3:26:51 PM Prelim Date: 05/24/2022 3:29:45 PM Sign Date: 05/24/2022 4:02:53 PM Ordering Provider: [facility]09-24-2022 Note ORIGINAL EXAMINATION: CT OF THE HEAD WITHOUT CONTRAST 05/24/2022 2:26 pm TECHNIQUE: CT of the head was performed without the administration of intravenous contrast. Automated exposure control, iterative reconstruction, and/or weight based adjustment of the mA/kV was utilized to reduce the radiation dose to as low as reasonably achievable. COMPARISON: None. HISTORY: ORDERING SYSTEM PROVIDED HISTORY: Reason for Exam: SUDDEN ONSET HEADACHE AND HIGH BLOOD PRESSURE headache FINDINGS: BRAIN/VENTRICLES: There is no acute intracranial hemorrhage, mass effect or midline shift. No abnormal extra-axial fluid collection. The haile-white differentiation is maintained without evidence of an acute infarct. There is no evidence of hydrocephalus. Atherosclerotic calcifications are noted in the cavernous carotid and intracranial vertebral arteries. There is fusiform enlargement of the basilar artery measuring up to about 6 mm. ORBITS: The visualized portion of the orbits demonstrate no acute abnormality. SINUSES: The right maxillary sinus is near completely opacified. There is some internal serpiginous hyperdensity/calcification. Cooper of the right maxillary sinus are thickened. SOFT TISSUES/SKULL: No acute abnormality of the visualized skull or soft tissues. IMPRESSION: No acute intracranial abnormality. Vertebrobasilar dolichoectasia. Interpreted by: Sharlene Barrios Preliminary Report By: Sharlene Barrios Electronically signed By Sharlene Barrios Dictated Date: 05/24/2022 2:27:59 PM Prelim Date: 05/24/2022 2:37:50 PM Sign Date: 05/24/2022 2:37:50 PM Ordering Provider: [facility]09-24-2022 Note ORIGINAL EXAMINATION: CT OF THE HEAD WITHOUT CONTRAST 05/24/2022 2:26 pm TECHNIQUE: CT of the head was performed without the administration of intravenous contrast. Automated exposure control, iterative reconstruction, and/or weight based adjustment of the mA/kV was utilized to reduce the radiation dose to as low as reasonably achievable. COMPARISON: None. HISTORY: ORDERING SYSTEM PROVIDED HISTORY: Reason for Exam: SUDDEN ONSET HEADACHE AND HIGH BLOOD PRESSURE headache FINDINGS: BRAIN/VENTRICLES: There is no acute intracranial hemorrhage, mass effect or midline shift. No abnormal extra-axial fluid collection. The haile-white differentiation is maintained without evidence of an acute infarct. There is no evidence of hydrocephalus. Atherosclerotic calcifications are noted in the cavernous carotid and intracranial vertebral arteries. There is fusiform enlargement of the basilar artery measuring up to about 6 mm. ORBITS: The visualized portion of the orbits demonstrate no acute abnormality. SINUSES: The right maxillary sinus is near completely opacified. There is some internal serpiginous hyperdensity/calcification. Cooper of the right maxillary sinus are thickened. SOFT TISSUES/SKULL: No acute abnormality of the visualized skull or soft tissues. IMPRESSION: No acute intracranial abnormality. Vertebrobasilar dolichoectasia. Interpreted by: Sharlene Barrios Preliminary Report By: Sharlene Barrios Electronically signed By Sharlene Barrios Dictated Date: 05/24/2022 2:27:59 PM Prelim Date: 05/24/2022 2:37:50 PM Sign Date: 05/24/2022 2:37:50 PM Ordering Provider: [facility]09-24-2022 Evaluation + Plan noteExtracted from: Title:History and Physical Author:PENNY MADDOX MD Date:05/24/22 Problem list Hypertensive emergency Acute kidney injury Likely prerenal Dehydration PLAN BP dropped to systolic of 149. We will titrate nicardipine drip. We will resume his home amlodipine 10 mg. We will hold off his home losartan and chlorthalidone in light of his acute kidney injury. We will give IV fluids with LR at 100 cc. We will check UA. We will monitor electrolytes and replace as necessary. We will resume home meds as appropriate. DVT prophylaxis: Heparin Full CODE STATUS For further clarification please refer to attendings addendum. Addendum by VIVI MENDEZ MD on May 25, 2022 14:30:19 EDT Attending attestation: I have reviewed the history, labs and imaging with the resident and discussed the plan of care. I have independently taken a history and examined the patient. Agree with findings and plan as detailed above. I would like to add the followin-year-old male past medical history as above presenting for complaint of headache. Found to be hypertensive with OMAR. Admitted to the ICU for hypertensive emergency. Started on Cardizem drip in the ER. CT head no acute process Overnight Cardizem drip has been weaned off. Patient is currently lying in bed comfortably not in any distress. He denies any headache, shortness of breath, chest pain, abdominal pain. Assessment Hypertensive emergency OMAR versus CKD History of PATRICIO on CPAP at home Plan Patient's hypertension is improved. Restart home dose of amlodipine and Coreg. If he remains hypertensive can add back on Imdur. Hold off on restarting CANDACE inhibitor and chlorthalidone given OMAR Unclear if OMAR or CKD. Patient does report history of baseline renal dysfunction. Will investigate further with renal ultrasound and duplex to rule out renal artery stenosis as cause of his uncontrolled hypertension Resume home CPAP when sleeping Stable from respiratory perspective is on room air Transfer to stepdown unit.30 minutes critical care time [facility] Evaluation note* Diagnosis Chronic diastolic HF (heart failure) (HCC)- Primary Chronic diastolic heart failure Aortic valve stenosis, etiology of cardiac valve disease unspecified Essential hypertension Unspecified essential hypertension PATRICIO (obstructive sleep apnea) Obstructive sleep apnea (adult) (pediatric) History of echocardiogram Other specified personal history presenting hazards to health Abnormal renal ultrasound Nonspecific (abnormal) findings on radiological and other examination of genitourinary organs Never smoked cigarettes Other specified conditions influencing health status History of cardiac cath Other postprocedural status Stage 3a chronic kidney disease (HCC) [facility] Diagnosis Parkinson disease (HCC)- Primary Paralysis agitans Essential tremor [facility] Diagnosis Parkinson's disease with fluctuating manifestations, unspecified whether dyskinesia present- Primary Essential tremor [facility]* Diagnosis Acute otitis externa of both ears, unspecified type- Primary [facility] Diagnosis Parkinson's disease with fluctuating manifestations, unspecified whether dyskinesia present- Primary Essential tremor Myalgia Unspecified myalgia and myositis [facility] Diagnosis Parkinson's disease with fluctuating manifestations, unspecified whether dyskinesia present (HCC)- Primary Essential tremor [facility] Diagnosis Chronic diastolic HF (heart failure) (HCC)- Primary Chronic diastolic heart failure Essential hypertension, benign History of echocardiogram Other specified personal history presenting hazards to health History of cardiac cath Other postprocedural status History of stress test Other specified conditions influencing health status Never smoked cigarettes Other specified conditions influencing health status documented in this encounter [facility] course Narrative No data available for this section [facility] Reason for referral (narrative)* Outpatient Procedure (Routine) - Closed Specialty Diagnoses / Procedures Referred By Contac t [facility] Diagnoses Essential hypertension Procedures ECG COMPLETE ECG ROUTINE ECG W/LEAST 12 LDS W/I&R Milena Herman APRN.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 [address] [place] [address] [address] [place] [address] Referral ID Status Reason Start Date Expiration Date V isits Requested Visits Authorized [id number] Closed Auto-Generate d Referral 10/15/2022 10/15/2023 1 1 [facility] for referral (narrative)* Outpatient Procedure (Routine) - Pending Review Specialty Diagnoses / Procedures Referred By Contac t Referred To Contact [facility] Diagnoses Hypertension, unspecified type Procedures ECG COMPLETE ECG ROUTINE ECG W/LEAST 12 LDS W/I&R Milton Basilio DO [address] [place] [address] [address] Referral ID Status Reason Start Date Expiration Date Visits Requested Visits Authorized [id number] Pending Review Auto-Generat ed Referral 06/11/2024 1 1 [facility] for referral (narrative)* Outpatient Procedure (Routine) - Authorized Specialty Diagnoses / Procedures Referred By Contac t Referred To Contact [facility] Diagnoses Chronic diastolic HF (heart failure) (HCC) Procedures ECHO ECHO TTHRC R-T 2D W/WOM-MODE COMPL SPEC&COLR D Milena Herman APRN.CNP [address] [place] [address] [address] Referral ID Status Reason Start Date Expiration Date Visits Requested Visits Authorized [id number] Authorized Auto-Generat ed Referral 03/14/2024 03/14/2025 1 1 * Outpatient Procedure (Routine) - New Request Specialty Diagnoses / Procedures Referred By Contac t Referred To Contact [facility] Diagnoses Essential hypertension, benign Procedures ECG COMPLETE ECG ROUTINE ECG W/LEAST 12 LDS W/I&R Milena Herman APRN.CNP [address] [place] [address] [address] [place] [address] [facility] [address] [place] [address] Referral ID Status Reason Start Date Expiration Date Visits Requested Visits Authorized [id number] New Request Auto-Generat ed Referral 03/14/2024 03/14/2025 1 1 [facility] Summary Purpose Family History No Family History Records FoundNo Family History Records FoundNo Family History Records FoundNo Family History Records FoundNo Family History Records Found Advance Directives No Advanced Directives Records FoundNo Advanced Directives Records FoundNo Advanced Directives Records FoundNo Advanced Directives Records FoundNo Advanced Directives Records Found Additional Source Comments Care Team (unrecognized sect ion and content) Care Team Personnel Name: RAZIA MAYA DO Member Role: Primary Care Physician Address: Address: [address] [place] [id number] [place] Care Team Related Persons Name: WOLF ABBOTT Name: OFE ABBOTT Source Comments (unrecognize d section and content) In the event this informatio n is protected by the Federal Confidentiality of Alcohol and Drug Abuse Patient Records regulations: The Federal rules restrict any use of the information to criminally investigate or prosecute any alcohol or drug abuse patient.[facility] the event this information is protected by the Federal Confidentiality of Alcohol and Drug Abuse Patient Records regulations: The Federal rules restrict any use of the information to criminally investigate or prosecute any alcohol or drug abuse patient.[facility] the event this information is protected by the Federal Confidentiality of Alcohol and Drug Abuse Patient Records regulations: The Federal rules restrict any use of the information to criminally investigate or prosecute any alcohol or drug abuse patient.[facility] the event this information is protected by the Federal Confidentiality of Alcohol and Drug Abuse Patient Records regulations: The Federal rules restrict any use of the information to criminally investigate or prosecute any alcohol or drug abuse patient.[facility] HospitalIn the event this information is protected by the Federal Confidentiality of Alcohol and Drug Abuse Patient Records regulations: The Federal rules restrict any use of the information to criminally investigate or prosecute any alcohol or drug abuse patient.[facility] HospitalIn the event this information is protected by the Federal Confidentiality of Alcohol and Drug Abuse Patient Records regulations: The Federal rules restrict any use of the information to criminally investigate or prosecute any alcohol or drug abuse patient.[facility] HospitalIn the event this information is protected by the Federal Confidentiality of Alcohol and Drug Abuse Patient Records regulations: The Federal rules restrict any use of the information to criminally investigate or prosecute any alcohol or drug abuse patient.[facility] HospitalIn the event this information is protected by the Federal Confidentiality of Alcohol and Drug Abuse Patient Records regulations: The Federal rules restrict any use of the information to criminally investigate or prosecute any alcohol or drug abuse patient.[facility] Reason for Visit (unrecogniz ed section and content) Reason Comments New Patient Reason Comments Follow-up Parkinson's Disease Reason Onset Date Comments Medication Problem 04/27/2023 Reason Comments Established Patient Follow-Up 6 month fo llow up, hx of HTN. Reason Comments Ear Problem Right ear pain ear f eels clogged 1 day Reason Comments Patient Question Reason Comments Established Patient Follow-Up 9 month fo llow up Reason Comments Appointment Reminder Reason Comments Results Echocardiogram Reason Onset Date Comments Refill Request 06/20/2024 Care Teams (unrecognized sec tion and content) Patrol Inspector Relationship Specialty Start Date End Date Razia Maya DO [address] [place] [id number] PCP - General Family Medicine 10/16/22 Patrol Inspector Relationship Specialty Start Date End Date Razia Maya [address] [place] [address] PCP - General 10/04/20 Patrol Inspector Relationship Specialty Start Date End Date Razia Maya [address] [place] [address] PCP - General 10/04/20 Patrol Inspector Relationship Specialty Start Date End Date Razia Maya DO PCP - General Family Medicine 10/16/22 Patrol Inspector Relationship Specialty Start Date End Date Razia Maya [address] [place] [address] PCP - General 10/04/20 Patrol Inspector Relationship Specialty Start Date End Date Razia Maya DO PCP - General Family Medicine 10/16/22 Patrol Inspector Relationship Specialty Start Date End Date Razia Maya [address] [place] [address] PCP - General 10/04/20 Patrol Inspector Relationship Specialty Start Date End Date Razia Maya DO PCP - General Family Medicine 10/16/22 Patrol Inspector Relationship Specialty Start Date End Date Razia Maya [address] [place] [address] PCP - General 10/04/20 Patrol Inspector Relationship Specialty Start Date End Date Razia Maya DO PCP - General Family Medicine 10/16/22 Patrol Inspector Relationship Specialty Start Date End Date Razia Maya DO PCP - General Family Medicine 10/16/22 Patrol Inspector Relationship Specialty Start Date End Date Razia Maya DO PCP - General Family Medicine 10/16/22 (unrecognized sect ion and content) No Status Records FoundNo Status Records FoundNo Status Records FoundNo Status Records FoundNo Status Records Found INFORMATION SOURCE (unrecogn ized section and content) DATE CREATED AUTHOR 12/14/2022 [facility] [place] DATE CREATED AUTHOR AUTHOR'S ORGANIZ ATION 01/02/2024 [facility] ([place]) DATE CREATED AUTHOR AUTHOR'S ORGANIZ ATION 01/21/2024 [facility] DATE CREATED AUTHOR AUTHOR'S ORGANIZ ATION 04/02/2024 [facility] DATE CREATED AUTHOR AUTHOR'S ORGANIZ ATION 04/07/2024 [facility] FOR RECORDS PERTAINING TO PATIENTS WHO ARE OR HAVE BEEN ENROLLED IN A CHEMICAL DEPENDENCY/SUBSTANCEABUSE PROGRAM, SOME INFORMATION MAY BE OMITTED. This clinical summary was aggregated from multiple sources. Caution should be exercised in using it in the provision of clinical care. This summary normalizes information from multiple sources, and as a consequence, information in this document may materially change the coding, format and clinical context of patient data. In addition, data may be omitted in some cases. CLINICAL DECISIONS SHOULD BE BASED ON THE PRIMARY CLINICAL RECORDS. [employer] provides no warranty or guarantee of the accuracy or completeness of information in this document.
[2024-06-23 11:10] LABS: Anion Gap 5 (5-15); BUN 48 mg/dL (7-18); BUN/Creat Ratio 33.6 RATIO (10-20); Chloride 111 mmol/L (98-107); Creatinine, Serum 1.43 mg/dL (0.70-1.30); EST Glomerular Filtration Rate 51 mL/min (>60); Est Glom Filt Rate - Afr Amer 62 mL/min (>60); Glucose 109 mg/dL (74-106); Phosphorus 3.8 mg/dL (2.5-4.9); Sodium Level 138 mmol/L (136-145)
== END | disposition home or self-care (01) ==
LOC: LAB 09:07
PROVIDERS: PCP Family Medicine; Referring Provider Family Medicine; Visit Provider Family Medicine
DX: N18.31 Chronic kidney disease, stage 3a (principal)
CPT/HCPCS: 36415; 80048; 84100; 85025

== ENCOUNTER → 2024-06-30 | Outpatient (CLI) | payer MEDICARE, SELFPAY ==
[2024-06-30 12:57] LABS: Cholesterol 209 mg/dL (200); High Density Lipoprotein 36 mg/dL; PSA,Total - Annual Screen 0.79 ng/mL (0.00-4.00); Triglycerides 199 mg/dL; Uric Acid 9.2 mg/dL (3.5-7.2); Very Low Density Lipoprotein 40 mg/dL (5-40)
== END | disposition home or self-care (01) ==
PROVIDERS: PCP Family Medicine; Referring Provider Family Medicine; Visit Provider Family Medicine
DX: I10 Essential (primary) hypertension (principal); M10.9 Gout, unspecified; Z12.5 Encounter for screening for malignant neoplasm of prostate
CPT/HCPCS: 36415; 80061; 84153; 84550; G0103

== ENCOUNTER → 2024-09-19 | Outpatient (CLI) | payer MEDICARE, SELFPAY ==
[2024-09-19 09:07] LABS: Absolute Lymphocyte Count 0.89 X10^3/uL (0.83-4.51); Absolute Neutrophil Count 3.2 X10^3/uL (2.0-7.7); Basophil# 0.02 X10^3/uL; Basophil% 0.4 % (0-1); Eosinophil# 0.11 X10^3/uL; Eosinophils% 2.4 % (0-5); Hematocrit 30.6 % (40-54); Hemoglobin 10.4 g/dL (13.0-16.5); Lymphocyte # 0.89 X10^3/ul (0.83-4.51); Lymphocyte % 19.2 % (19-41); Mean Corpuscular Hgb 30.3 pg (27.0-32.0); Mean Corpuscular Volume 89.2 fL (80-94); Mean Platelet Vol. 11.4 fl (6.2-12.0); Monocyte# 0.38 X10^3/uL; Monocyte% 8.2 % (0-10); NRBC Flagged by Analyzer 0 % (0-5); Neutrophil # 3.21 X10^3/uL (2.7-7.7); Neutrophil % 69.4 % (47-70); Platelet Count 164 K/mm3 (150-450); RBC Distribution Width CV 14.3 % (11.6-14.6); Red Blood Count 3.43 M/mm3 (4.6-6.2); White Blood Count 4.6 K/mm3 (4.4-11.0)
[2024-09-19 09:29] LABS: Anion Gap 6 (5-15); BUN 44 mg/dL (7-18); BUN/Creat Ratio 29.9 RATIO (10-20); Calcium,Total 8.9 mg/dL (8.5-10.1); Chloride 109 mmol/L (98-107); Creatinine, Serum 1.47 mg/dL (0.70-1.30); EST Glomerular Filtration Rate 50 mL/min (>60); Est Glom Filt Rate - Afr Amer 60 mL/min (>60); Glucose 118 mg/dL (74-106); Phosphorus 3.3 mg/dL (2.5-4.9); Potassium 4.9 mmol/L (3.5-5.1); Sodium Level 139 mmol/L (136-145)
== END | disposition home or self-care (01) ==
LOC: LAB 08:08
PROVIDERS: PCP Family Medicine; Referring Provider Family Medicine; Visit Provider Family Medicine
DX: N18.31 Chronic kidney disease, stage 3a (principal); D63.1 Anemia in chronic kidney disease
CPT/HCPCS: 36415; 80048; 84100; 85025

== ENCOUNTER → 2024-10-24 | Outpatient (CLI) | payer MEDICARE, SELFPAY ==
[2024-10-24 17:46] LABS: Absolute Lymphocyte Count 0.87 X10^3/uL (0.83-4.51); Absolute Neutrophil Count 3.7 X10^3/uL (2.0-7.7); Basophil# 0.03 X10^3/uL; Basophil% 0.6 % (0-1); Eosinophil# 0.12 X10^3/uL; Eosinophils% 2.3 % (0-5); Hematocrit 30.4 % (40-54); Hemoglobin 10.3 g/dL (13.0-16.5); Lymphocyte # 0.87 X10^3/ul (0.83-4.51); Lymphocyte % 16.5 % (19-41); Mean Corp Hgb Conc 33.9 g/dL (32-36); Mean Corpuscular Hgb 29.8 pg (27.0-32.0); Mean Corpuscular Volume 87.9 fL (80-94); Mean Platelet Vol. 11.1 fl (6.2-12.0); Monocyte# 0.49 X10^3/uL; Monocyte% 9.3 % (0-10); NRBC Flagged by Analyzer 0 % (0-5); Neutrophil % 70.3 % (47-70); Platelet Count 182 K/mm3 (150-450); RBC Distribution Width CV 14.6 % (11.6-14.6); Red Blood Count 3.46 M/mm3 (4.6-6.2); White Blood Count 5.3 K/mm3 (4.4-11.0)
[2024-10-24 18:03] LABS: ALB/GLOB Ratio 1.2 RATIO (0.9-2.4); AST(SGOT) 13 U/L (15-37); Alanine Aminotransfer ALT/SGPT 12 U/L (16-61); Albumin, Serum 3.5 g/dL (3.2-5.0); Alkaline Phosphatase 90 U/L (45-117); Anion Gap 8 (5-15); BUN 39 mg/dL (7-18); Calcium,Total 9.3 mg/dL (8.5-10.1); Chloride 104 mmol/L (98-107); EST Glomerular Filtration Rate 49 mL/min (>60); Est Glom Filt Rate - Afr Amer 59 mL/min (>60); Glucose 98 mg/dL (74-106); Potassium 4.5 mmol/L (3.5-5.1); Protein, Total 6.5 g/dL (6.4-8.2); Sodium Level 139 mmol/L (136-145)
== END | disposition home or self-care (01) ==
LOC: BFHLAB 15:54
PROVIDERS: PCP Family Medicine; Visit Provider Nurse Practitioner Family
DX: R10.11 Right upper quadrant pain (principal); N18.31 Chronic kidney disease, stage 3a; I12.9 Hypertensive chronic kidney disease with stage 1 through stage 4 chronic kidney disease, or unspecified chronic kidney disease
CPT/HCPCS: 36415; 80053; 85025

== ENCOUNTER → 2024-10-27 | Outpatient (CLI) | payer MEDICARE, SELFPAY ==
--- NOTE | 2024-10-27 07:38 | US_ITS ---
PROCEDURE: ABDOMEN LIMITED REASON FOR EXAM: Right upper quadrant pain. COMPARISON: None FINDINGS: Liver: Diffusely echogenic suggesting fatty infiltration. Gallbladder: Multiple echogenic gallstones are identified. Common bile duct: Normal measuring measures 3 mm.. Pancreas: Visualized portions are sonographically unremarkable. The right kidney is hypertrophic. It measures 17.2 cm x 10.9 cm x 9.8 cm. The cortex measures 1.8 cm. Multiple cysts are seen within it. The largest cyst measures 7.5 cm x 8.2 cm x 7.4 cm. US/Abdomen Limited IMPRESSION: Multiple gallstones. Fatty infiltration of the liver. Hypertrophy of the right kidney with multiple cysts within it. Reading Location: [facility]
== END | disposition home or self-care (01) ==
LOC: US 07:37
PROVIDERS: PCP Family Medicine; Referring Provider Nurse Practitioner Family; Visit Provider Nurse Practitioner Family
DX: R10.11 Right upper quadrant pain (principal)
CPT/HCPCS: 76705

== ENCOUNTER 2024-11-11 10:40 | Day surgery (SDC) | payer MEDICARE, SELFPAY ==
--- NOTE | 2024-11-10 16:22 | PAT.ANE_ITS ---
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 When Was Last Pacemaker Check QUESTION #4 FULL TEXT: You/Your Family Experience fever (hyperthermia) with Anesthesia Any additional information?: No Last Oral Intake Last Oral intake: Last Oral Intake NPO since Meds taken in AM with sips of water? 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 operator vertical Female No 11/10/24 13:54 HX of Motion Sickness No 11/10/24 13:54 HX of N/V After Surgery No 11/10/24 13:54 Non-Smoker Yes 11/10/24 13:54 Duration of Surgery greater No 11/10/24 13:54 than 60 minutes Number of Risk Factors 1 11/10/24 13:54 PONV Score Low Risk 11/10/24 13:54 Any additional information?: No Height & Weight Height & Weight: Anesthesia: Height & Weight Height 5 ft 10 in 11/07/24 13:50 Respiratory Assessment Respiratory Assessment - extruder operator vertical: Respiratory Tract Infection Hx - 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 Has anyone observed you stop breathing during sleep? STOP Results Positive 11/10/24 13:54 QUESTION #5 FULL TEXT : Do you snore loudly (louder than talking or can be heard through closed doors)? 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 Specify any problems Hx of Preganancy in last 3 N/A 11/10/24 13:54 Months Nurse Filling Out Transfusion [facility] 11/10/24 13:54 & Questions: Date: 11/10/24 11/10/24 13:54 Time: 14:03 11/10/24 13:54 Patient unable to answer at this time (ie. confused, unrespo /Reproduction History /Reproductive History - extruder operator vertical: /Reproductive Hx- extruder operator vertical Hx Now Gestational Age (in weeks): EDC: Hx Hx Para Hx Section SAB No 12/31/22 09:04 PFSH Medical History Wears hearing aid History of renal disease Anemia Sleep apnea Gallstones Wears glasses Wears dentures Cancer Low iron Restless legs Back pain Dietary restriction Non-smoker CPAP (continuous positive airway pressure) dependence Leg cramps History of pain when walking History of edema History of echocardiogram History of stress test Cardiology follow-up encounter Hx of undescended testicle Varicose veins of both lower extremities Elevated blood pressure reading in office with white coat syndrome, without diagnosis of hypertension Uncontrolled hypertension Wears hearing aid in both ears Cellulitis of left lower extremity without foot Nonobstructive atherosclerosis of coronary artery History of non-ST elevation myocardial infarction (NSTEMI) (11/26/20) Hyperlipidemia CKD (chronic kidney disease) Obesity Essential (primary) hypertension Testicular malignancy Nonrheumatic aortic (valve) stenosis Parkinsons disease Tremor, essential Gout Home Medications ?Medication ?Instructions ?Recorded ?Last Taken ?Type carbidopa 50 mg-levodopa 200 1 tab PO TID parkinsons 0 03/26/21 01/07/23 History mg-entacapone 200 mg tablet cholecalciferol (vitamin D3) 50 50 mcg PO DAILY 01/06/23 History mcg (2,000 unit) capsule carvedilol 25 mg tablet 25 mg PO BID 12/31/22 History amlodipine 10 mg tablet 10 mg PO QHS 01/06/23 History ascorbic acid (vitamin C) 500 mg 500 mg PO BID 5 Unknown History capsule carbidopa 25 mg-levodopa 100 mg 1 tab PO TID PRN TREMO RS 09/27/24 Unknown History tablet clonidine HCl 0.1 mg tablet 0.1 mg PO Q8H PRN hyperten sive 09/27/24 Unknown History emergency ferrous sulfate 325 mg (65 mg 325 mg PO BID 09/27/24 U nknown History iron) tablet hydralazine 50 mg tablet 50 mg PO Q6H 09/27/24 Unknow n History hydrochlorothiazide 12.5 mg tablet 12.5 mg PO QDAY Unknown History magnesium 250 mg tablet 250 mg PO BID 09/27/24 Unkno wn History mecobalamin (vitamin B12) 5,000 1,000 mcg PO QDAY 09/01 04/24 Unknown History mcg chewable tablet pramipexole 0.25 mg tablet 0.25 mg PO QHS restless leg s 09/27/24 Unknown History primidone 50 mg tablet 100 mg PO QAM 09/27/24 Unkno wn History primidone 50 mg tablet 150 mg PO QHS 09/27/24 Unkno wn History omeprazole 40 mg capsule,delayed 40 mg PO QDAY #30 cap s 11/03/24 Unknown Rx release Allergy/AdvReac Type Severity Reaction Status Date / Time clindamycin Allergy Swelling Verified 11/10/24 13:45 Sulfa (Sulfonamide Allergy Unknown, Verified 11/10/24 13:45 Antibiotics) A CHILD allopurinol AdvReac Intermediate Possible Verified 11/10/24 13:45 cause of rash on legs: went away after stopping simvastatin AdvReac myalgia Verified 11/10/24 13:45 Family History Father CAD (coronary artery disease) Sudden cardiac , Onset Age: 59 Myocardial infarction, Onset Age: 59 Hypertension Mother Heart disease Hypertension Brother Sudden cardiac , Onset Age: 68 Surgical History (Updated 11/10/24 @ 14:02 by Mey Hoffmann) History of cardiac catheterization S/P hernia repair History of colonoscopy History of lymph node excision History of left heart catheterization (01/21/21) History of surgical removal of testicle History of tonsillectomy Social History household members: spouse current occupational status: retired Smoking Status: Never smoker alcohol intake: never substance use type: does not use caffeine: No what type of physical activity do you participate in: bicycling frequency: 1-2 times per week duration: 30-45 minutes/day seatbelt use: always do you feel safe at home: Yes Prior Cardiac Testing/Procedures Prior Cardiac Testing/Procedures: Echocardiogram (EF 55%, Stage 1 diastolic dysfxn, mild-mod mitral valve insuffiency 05/22 ) Addt'l Information Additional Findings: Had emergency echo in 04/23, which showed hyperdyanmic systolic function with an EF of 72%, and moderate aortic valve stenosis. The patient is acceptable to proceed with anesthesia for EGD, but is at MODERATE risk for perioperative complications during his procedure due to his cardiac function. History of cardiac cath 01/21/2021, nonobstructive coronary ectsaia noted in LAD and RCA. Audit: Pertinent Findings Pertinent Findings Heart catheterization pertinent findings: History of cardiac cath 01/21/2021, nonobstructive coronary ectsaia noted in LAD and RCA. Current Visit Impressions Current Visit Impressions: Had emergency echo in 04/23, which showed hyperdynamic systolic function with an EF of 72%, and moderate aortic valve stenosis. Recommendation Anesthesia Recommendation Anesthesia recommendation: OPTIMIZED for anesthesia ( The patient is acceptable to proceed with anesthesia for EGD, but is at MODERATE risk for perioperative complications during his procedure due to his cardiac function.)
[2024-11-11] VITALS (8 sets, daily range): BP systolic 123–189; BP diastolic 76–99; PULSE 50–59; RESP 16–20; TEMP 36.2–36.8; O2SAT 98–99; BMI 30.9
--- NOTE | 2024-11-11 10:52 | HP.PCM_ITS ---
History and Physical Date of Admission: 11/11/24 Date of Service: 11/07/24 MR#: [id number] Acct: [id number] Name: CAROLYN CLINTON Rep #: [id number] : 1950 Provider: Dr. Kathy Malone MD Age/Sex: 73/M Location: [facility] Status: Signed Intake Vital Signs 09/27/2512:07 11/07/2512:50 Height 5 ft 10 in 5 ft 10 in Weight: 218 lb 215 lb 8 oz BMI 31.2 30.9 BP 111/75 Blood Pressure Location Rt brachial Position Sitting Respiration 18 Pulse 74 Pulse Source Monitor Temp 97.2 F L Temp Source Temporal Pulse Oximetry (%) 99 Oxygen Delivery Method room air Intake Visit Reasons: GALLBLADDER Chief Complaint: gallbladder Accompanied by: Is patient in pain?: No Allergies clindamycin Allergy (Verified 11/07/24 13:50) SwellingSulfa (Sulfonamide Antibiotics) Allergy (Verified 11/07/24 13:50) Unknown, A CHILDallopurinol Adverse Reaction (Intermediate, Verified 11/07/24 13:50) Possible cause of rash on legs: went away after stoppingsimvastatin Adverse Reaction (Verified 11/07/24 13:50) myalgia Medications ?Medication ?Instructions ?Recorded ?Confirmed ?Type carbidopa 50 mg-levodopa 200 1 tab PO TID parkinsons 03/26/21 5 History mg-entacapone 200 mg tablet cholecalciferol (vitamin D3) 50 50 mcg PO DAILY 07/05/21 11/07/24 Histor y mcg (2,000 unit) capsule carvedilol 25 mg tablet 25 mg PO BID 12/31/22 11/07/24 History amlodipine 10 mg tablet 10 mg PO QHS 01/06/23 11/07/24 History ascorbic acid (vitamin C) 500 mg 1,500 mg PO QDAY 09/27/24 11/07/24 Histo ry capsule carbidopa 25 mg-levodopa 100 mg 1 tab PO TID PRN 09/27/24 11/07/24 Histo ry tablet clonidine HCl 0.1 mg tablet 0.1 mg PO Q4H PRN 09/27/24 11/07/24 Hist ory ferrous sulfate 325 mg (65 mg 325 mg PO BID 09/27/24 11/07/24 History iron) tablet hydralazine 50 mg tablet 50 mg PO BID 09/27/24 11/07/24 History hydrochlorothiazide 12.5 mg tablet 12.5 mg PO QDAY 09/27/24 11/07/24 Histor y magnesium 250 mg tablet 250 mg PO DAILY 09/27/24 11/07/24 Histor y mecobalamin (vitamin B12) 5,000 5,000 mcg PO QDAY 09/27/24 11/07/24 Hist ory mcg chewable tablet pramipexole 0.25 mg tablet 0.25 mg PO QHS restless legs 09/27/24 History primidone 50 mg tablet 100 mg PO QAM 09/27/24 11/07/24 History primidone 50 mg tablet 150 mg PO QHS 09/27/24 11/07/24 History omeprazole 40 mg capsule,delayed 40 mg PO QDAY #30 caps 11/03/24 11/07/24 Rx release Have you fallen in the past year?: No PFSH Medical History (Updated 11/09/24 @ 11:[address] Kathy Malone MD) Gallstones Wears glasses Wears dentures Cancer Low iron Restless legs Back pain Dietary restriction Non-smoker CPAP (continuous positive airway pressure) dependence Leg cramps History of pain when walking History of edema History of echocardiogram History of stress test Cardiology follow-up encounter Hx of undescended testicle Varicose veins of both lower extremities Elevated blood pressure reading in office with white coat syndrome, without diagnosis of hypertension Uncontrolled hypertension Wears hearing aid in both ears Cellulitis of left lower extremity without foot Nonobstructive atherosclerosis of coronary artery History of non-ST elevation myocardial infarction (NSTEMI) (11/26/20) Hyperlipidemia CKD (chronic kidney disease) Obesity Essential (primary) hypertension Testicular malignancy Nonrheumatic aortic (valve) stenosis Parkinsons disease Tremor, essential Gout Surgical History S/P hernia repair History of colonoscopy History of lymph node excision History of left heart catheterization (01/21/21) History of surgical removal of testicle History of tonsillectomy Family History Father CAD (coronary artery disease) Sudden cardiac , Onset Age: 59 Myocardial infarction, Onset Age: 59 HypertensionMother Heart disease HypertensionBrother Sudden cardiac , Onset Age: 68 Social History household members: spouse current occupational status: retired Smoking Status: Never smoker alcohol intake: never substance use type: does not use caffeine: No what type of physical activity do you participate in: bicycling frequency: 1-2 times per week duration: 30-45 minutes/day seatbelt use: always do you feel safe at home: Yes HPI HPI HPI: 73-year-old male presents due to gallstones. Patient states that about 2 weeks ago on Thursday he had right upper quadrant pain which occurred in the morning when he woke up. Patient last ate at 530 to 6 PM. Patient did just start omeprazole which she states is helping. Patient states he does have a decreased appetite for about the last 6 weeks per patient and his . Patient has been able to eat peanut butter as well as chicken salad sandwich without any increased right upper quadrant pain. Patient states his pain is currently a 4/10 previous to this was occasionally got up to 10. Patient states his last colonoscopy was 6 to 7 years ago was told to come back in [address] Almazan. Will plan to get that report. Patient denies having polyps at that time. Patient does have bowel movements about every 2 days does take a senna if it goes beyond that. Patient denies any family history of colon cancer. ROS General General: Yes weight change (loss), appetite and fatigue; No colon cancer, breast cancer or weakness Additional Details: loss of appetite HEENT HEENT: No difficulty swallowing, eye injury, eye surgery, swollen glands or hoarseness Endo Endocrine: No thyroid disease, diabetes mellitus, thyroid cancer, Hair loss, heat intolerance or cold intolerance Skin Skin: Yes rash; No changing moles Musc Musculoskeletal: Yes back problems and gout; No arthritis, rheumatoid arthritis or joint pain Cardio Cardiovascular: Yes murmur and high blood pressure; No pacemaker, heart disease, atrial fibrillation, heart attack, heart stent, palpitations, shortness of breath with exertion or chest pain Psych Psychiatric: No depression, anxiety or hearing voices Resp Respiratory: No shortness of breath, Yes sleep apnea, No cough, No COPD, No asthma, No emphysema and No wheezing Gastro Gastrointestinal: Yes abdominal pain, Yes nausea or vomiting, No diarrhea, Yes constipation, No blood in stool, No acid reflux, No hemorrhoids, No ulcers, Yes gallbladder problem and No black,tarry stools Matthew Hematologic: No blood thinners, No blood disorders, No bleeding, Yes anemia and No blood clots Neuro Neurologic: No numbness, No tingling and No weakness Exam Const General: cooperative, healthy appearing, comfortable and no acute distress [facility] Head: normocephalic and atraumatic Neck Neck: supple Resp Effort & Inspection: normal respiratory effort Cardio Rate: regular rate GI Inspection: non-distended Palpation: soft and nontender Skin General: no rashes or lesions noted Neuro General: CN's II-XI intact bilaterally Extrem General: normal to inspection Psych Mental Status: mental status grossly normal Attitude: cooperative Assessment and Plan Assessment and Plan (1) GERD (gastroesophageal reflux disease): Status: Acute (2) Gallstones: Status: Acute Orders: Orders Colonoscopy 11/11/24 EGD 11/11/24 Plan Discussed with patient and his that his history sounds more like reflux or gastric etiology versus gallstones. As patient is able to eat fatty greasy foods without any issues since pain usually occurs in the morning before ever eating. Will have patient continue the omeprazole 40 mg p.o. daily. Also plan to do an EGD. Will also get the report from patient's last colonoscopy to see if he is due for colonoscopy if so we will plan to do it at the same time. I have discussed the above with the patient. I have offered the patient esophagogastroduodenoscopy and colonoscopy for evaluation. I have explained the risks/benefits of the procedure and described the procedure. I have discussed the risks with the patient, including but not limited to: infection, bleeding, perforation of the GI tract requiring emergency surgery, inability to complete the procedure, injury to any internal organs, complications of anesthesia, etc. - the patient understands and agrees to proceed. I have answered all the patient's questions to the patient's satisfaction and the patient has no further questions. The patient has been given instructions for the colon cleansing preparation. 1 day of clears, MiraLAX Dulcolax prep. Kathy Malone M.D. Pager: [phone] [facility] [address] [place] [address], Outpatient [facility], [address] [place] [address] Office: [phone] Coding Level of Care Code Off vis,est,level 3 Diagnoses GERD (gastroesophageal reflux disease) K21.9 Gallstones K80.20 Clinical Quality Measures Falls Risk Screening/Assistive Devices Have you fallen in the past year?: No 11/09/24 1137 <Electronically signed by Kathy Malone MD> Date Kathy Malone MD
--- NOTE | 2024-11-11 10:56 | PRE.ANES_ITS ---
ASA Classification* ASA Classification ASA Classification: 2 Assessment & Plan Anesthesia* Anesthesia Assessment Anesthesia Assessment: Discussed sedation and/or anesthesia options, risks, benefits, and alternatives with patient/parents/legal guardian/POA. Questions invited. The patient/parents/legal guardian/POA seems to understand and agrees to proceed with anesthesia plan. Reviewed the physical assessment, medical history, allergy history and patient home medications list prior to surgery/procedure/anesthetic and documented any changes. Performed airway and anesthesia risk assessments. Anesthesia Type Anesthesia Type: MAC Anesthesia Focused Assessment* Airway Assessment Mouth opens: >3 cm Mallampati Score: II Focused Labs Anesthesia Preop lab: CBC WBC 5.3 K/mm3 (4.4-11.0) 10/24/24 15:55 10/24/24 RBC 3.46 M/mm3 (4.6-6.2) L 10/24/24 15:55 10/24/24 Hgb 10.3 g/dL (13.0-16.5) L 10/24/24 15:55 5 Hct 30.4 % (40-54) L 10/24/24 15:55 10/24/24 Plt Count 182 K/mm3 (150-450) 10/24/24 15:55 10/24/24 CHEMISTRY Potassium 4.5 mmol/L (3.5-5.1) 10/24/24 15:55 10/24/24 Sodium 139 mmol/L (136-145) 10/24/24 15:55 10/24/24 Magnesium 2.2 mg/dL (1.6-2.6) 03/09/23 13:54 03/09/23 Phosphorus 3.3 mg/dL (2.5-4.9) 09/19/24 08:10 09/19/24 BUN 39 mg/dL (7-18) H 10/24/24 15:55 10/24/24 Creatinine 1.50 mg/dL (0.70-1.30) H 10/24/24 15:55 Glucose 98 mg/dL (74-106) 10/24/24 15:55 10/24/24 TSH 1.95 uIU/mL (0.358-3.74) 10/22/23 08:55 COAG PT 12.7 SECONDS (11.7-14.9) 11/26/20 04:40 Pre-Assessment Diagnosis/Proposed Procedure Planned Operative Procedure(s): EGD, COLONOSCOPY Anesthesia History Anesthesia History - pathology laboratory technologist: Anesthesia History - pathology laboratory technologist Hx Hospitalization No 11/10/24 13:54 Any Problems With Anesthesia No 11/10/24 13:54 Cholinesterase deficiency No 11/10/24 13:54 You/Your Family Experience No 11/10/24 13:54 fever (hyperthermia) with Relationship Recent Exposure to Contagious No 01/07/23 10:28 Disease Does patient have nerve No 11/10/24 13:54 stimulator Patient instructed to have device shut off --Does patient have Pacemaker or ICD? When Was Last Pacemaker Check QUESTION #4 FULL TEXT: You/Your Family Experience fever (hyperthermia) with Anesthesia Last Oral Intake Last Oral intake: Last Oral Intake NPO since Meds taken in AM with sips of water? Meds patient instructed to take am of surgery PONV PONV - pathology laboratory technologist: PONV - pathology laboratory technologist Female No 11/10/24 13:54 HX of Motion Sickness No 11/10/24 13:54 HX of N/V After Surgery No 11/10/24 13:54 Non-Smoker Yes 11/10/24 13:54 Duration of Surgery greater No 11/10/24 13:54 than 60 minutes Number of Risk Factors 1 11/10/24 13:54 PONV Score Low Risk 11/10/24 13:54 Height & Weight Height & Weight: Anesthesia: Height & Weight Height 5 ft 10 in 11/07/24 13:50 Respiratory Assessment Respiratory Assessment - pathology laboratory technologist: Respiratory Tract Infection Hx - pathology laboratory technologist Hx Respiratory Tract Infection No 11/10/24 13:54 STOP Sleep Apnea STOP Sleep Apnea - pathology laboratory technologist: STOP Sleep Apnea - pathology laboratory technologist Hx Hypertension Yes 11/10/24 13:54 Hx Sleep Apnea Yes 11/10/24 13:54 CPAP Yes 11/10/24 13:54 BIPAP No 11/10/24 13:54 Do you snore loudly (louder than talking or can be heard Do you often feel tired/ fatigued/ sleepy during daytime? Has anyone observed you stop breathing during sleep? STOP Results Positive 11/10/24 13:54 QUESTION #5 FULL TEXT : Do you snore loudly (louder than talking or can be heard through closed doors)? 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 Specify any problems Hx of Preganancy in last 3 N/A 11/10/24 13:54 Months Nurse Filling Out Transfusion VLEHMAN 11/10/24 13:54 & Questions: Date: 11/10/24 11/10/24 13:54 Time: 14:03 11/10/24 13:54 Patient unable to answer at this time (ie. confused, unrespo /Reproduction History /Reproductive History - pathology laboratory technologist: /Reproductive Hx- pathology laboratory technologist Hx Now Gestational Age (in weeks): EDC: Hx Hx Para Hx Section SAB No 12/31/22 09:04 PFSH Medical History Wears hearing aid History of renal disease Anemia Sleep apnea Gallstones Wears glasses Wears dentures Cancer Low iron Restless legs Back pain Dietary restriction Non-smoker CPAP (continuous positive airway pressure) dependence Leg cramps History of pain when walking History of edema History of echocardiogram History of stress test Cardiology follow-up encounter Hx of undescended testicle Varicose veins of both lower extremities Elevated blood pressure reading in office with white coat syndrome, without diagnosis of hypertension Uncontrolled hypertension Wears hearing aid in both ears Cellulitis of left lower extremity without foot Nonobstructive atherosclerosis of coronary artery History of non-ST elevation myocardial infarction (NSTEMI) (11/26/20) Hyperlipidemia CKD (chronic kidney disease) Obesity Essential (primary) hypertension Testicular malignancy Nonrheumatic aortic (valve) stenosis Parkinsons disease Tremor, essential Gout Home Medications ?Medication ?Instructions ?Recorded ?Last Taken ?Type carbidopa 50 mg-levodopa 200 1 tab PO TID parkinsons 0 03/26/21 01/07/23 History mg-entacapone 200 mg tablet cholecalciferol (vitamin D3) 50 50 mcg PO DAILY 01/06/23 History mcg (2,000 unit) capsule carvedilol 25 mg tablet 25 mg PO BID 12/31/22 History amlodipine 10 mg tablet 10 mg PO QHS 01/06/23 History ascorbic acid (vitamin C) 500 mg 500 mg PO BID 5 Unknown History capsule carbidopa 25 mg-levodopa 100 mg 1 tab PO TID PRN TREMO RS 09/27/24 Unknown History tablet clonidine HCl 0.1 mg tablet 0.1 mg PO Q8H PRN hyperten sive 09/27/24 Unknown History emergency ferrous sulfate 325 mg (65 mg 325 mg PO BID 09/27/24 U nknown History iron) tablet hydralazine 50 mg tablet 50 mg PO Q6H 09/27/24 Unknow n History hydrochlorothiazide 12.5 mg tablet 12.5 mg PO QDAY Unknown History magnesium 250 mg tablet 250 mg PO BID 09/27/24 Unkno wn History mecobalamin (vitamin B12) 5,000 1,000 mcg PO QDAY 09/01 04/24 Unknown History mcg chewable tablet pramipexole 0.25 mg tablet 0.25 mg PO QHS restless leg s 09/27/24 Unknown History primidone 50 mg tablet 100 mg PO QAM 09/27/24 Unkno wn History primidone 50 mg tablet 150 mg PO QHS 09/27/24 Unkno wn History omeprazole 40 mg capsule,delayed 40 mg PO QDAY #30 cap s 11/03/24 Unknown Rx release Allergy/AdvReac Type Severity Reaction Status Date / Time clindamycin Allergy Swelling Verified 11/10/24 13:45 Sulfa (Sulfonamide Allergy Unknown, Verified 11/10/24 13:45 Antibiotics) A CHILD allopurinol AdvReac Intermediate Possible Verified 11/10/24 13:45 cause of rash on legs: went away after stopping simvastatin AdvReac myalgia Verified 11/10/24 13:45 Family History Father CAD (coronary artery disease) Sudden cardiac , Onset Age: 59 Myocardial infarction, Onset Age: 59 Hypertension Mother Heart disease Hypertension Brother Sudden cardiac , Onset Age: 68 Surgical History History of cardiac catheterization S/P hernia repair History of colonoscopy History of lymph node excision History of left heart catheterization (01/21/21) History of surgical removal of testicle History of tonsillectomy Social History household members: spouse current occupational status: retired Smoking Status: Never smoker alcohol intake: never substance use type: does not use caffeine: No what type of physical activity do you participate in: bicycling frequency: 1-2 times per week duration: 30-45 minutes/day seatbelt use: always do you feel safe at home: Yes Review of Systems (Anesthesia) ROS Narrative System reviewed and no additional complaints, except as documented.
--- NOTE | 2024-11-11 12:00 | EGD_PTH ---
PATIENT: CAROLYN CLINTON LOC: EN U#:[id number] AGE/SX: 73/M ROOM: RE11/11/[address]: Dr. Kathy Malone MD : 1950 BED: DIS: 11/11/2024 SPEC #: [id number] RECD: 11/14/24 09:38 STATUS: NOEL REQ #: [id number] RUPAL: 11/11/24 12:[address]: Kathy Malone DEPT: SURGICAL PATHOLOGY RECD BY: Raffy Brunner ENTERED: 11/14/24 09:40 SP TYPE: EGD BIOPSY JARED DR: Dr. Tom Crocker DO Tissues: A - Gastric mucous membrane B - Ascending colon C - COLON BIOPSY D - COLON BIOPSY E - COLON BIOPSY Procedures: Immunohistochemical Stains Surgery Specimen Level IV HEADER OPERATION: Colonoscopy, EGD PRE-OP DIAGNOSIS: GERD TISSUE SUBMITTED: A- Antrum biopsy, B- Ascending colon biopsy, C- Sigmoid polyp #1, D- Sigmoid polyp #2, E- Sigmoid polyp - stalk from sigmoid polyp #2 MICROSCOPIC DIAGNOSIS A. Antrum, biopsy: Oxyntic mucosa without gastritis or cryptitisAn immunohistochemical stain with appropriate controls for Helicobacter pylori is negativeB. Ascending colon, biopsy:Tubular adenomaC. Sigmoid polyp #1, biopsy:Colonic mucosa with no histopathologic abnormalityD. Sigmoid polyp #2, biopsy:Tubular adenoma (see comment)E. Sigmoid polyp-stalk of polyp #2, biopsy:Colonic mucosa without histopathologic abnormality COMMENT Dr. Annie Flowers has reviewed the slides for part D and agrees that it is a tubular adenoma.Steve Pena MD, 11/16/2024 MICROSCOPIC DESCRIPTION Slides are reviewed. These tests were developed and their performance characteristics determined by [facility]. They may not have been cleared or approved by the [place]. Food and Drug Administration. The FDA has determined that such clearance or approval is not necessary. The above immunohistochemical/dualISH markers are ordered and reviewed by the Pathologist. GROSS DESCRIPTION A. Received in fixative is one container labeled with the patient's name and designated Antrum biopsy. The specimen consists of one irregular fragment of light guevara soft tissue that measures 0.3 x 0.3 x 0.2 cm. The specimen is totally submitted in one cassette. B. Received in fixative is one container labeled with the patient's name and designated Ascending colon biopsy. The specimen consists of two irregular fragments of light guevara soft tissue that in aggregate measure 0.6 x 0.3 x 0.2 cm. The specimen is totally submitted in one cassette. C. Received in fixative is one container labeled with the patient's name and designated Sigmoid polyp #1. The specimen consists of one irregular fragment of light guevara soft tissue that measures 0.4 x 0.2 x 0.1 cm. The specimen is totally submitted in one cassette. D. Received in fixative is one container labeled with the patient's name and designated Sigmoid polyp #2. The specimen consists of one irregular fragment of light guevara soft tissue that measures 0.7 x 0.6 x 0.3 cm. The specimen is totally submitted in one cassette. E. Received in fixative is one container labeled with the patient's name and designated Sigmoid polyp - stalk of polyp #2. The specimen consists of one irregular fragment of light guevara soft tissue that measures 0.4 x 0.3 x 0.2 cm. The specimen is totally submitted in one cassette. MS/mr 11/14/2024 CPT:92387y2,69105, TC:1
--- NOTE | 2024-11-11 12:57 | PCM.POST.ANE ---
Anesthesia: Postop Eval I Current Vital Signs Temperature: 97.2 F Pulse Rate: 59 Blood Pressure: 123/76 Respiratory Rate: 20 Pulse Ox: 98 Oxygen Delivery Method: Room Air Assessment Airway patent: Yes Spontaneous unlabored respirations: Yes Mental status: Awake nausea: No Vomiting: No Anesthesia Complication: No Fluid Hydration Crystalloid volume administer (ml): 20 Total IV fluid infused: 20 Progress Note Anesthesia document: Postop Eval 1 completed: Yes
--- NOTE | 2024-11-11 13:00 | OP.EGD_ITS ---
Patient Name: Tez Abbott Procedure Date: 11/11/2024 11:39 AM Date of : 1950 Age: 73 Procedure: Upper GI endoscopy Indications: Epigastric abdominal pain, Abdominal pain in the right upper quadrant Providers: Kathy Malone MD Referring MD: Tom Crocker Medicines: Monitored Anesthesia Care Patient Profile: This is a 73 year old male. Complications: No immediate complications. Procedure: Pre-Anesthesia Assessment: - Prior to the procedure, a History and Physical was performed, and patient medications and allergies were reviewed. The patient's tolerance of previous anesthesia was also reviewed. The risks and benefits of the procedure and the sedation options and risks were discussed with the patient. All questions were answered, and informed consent was obtained. Prior Anticoagulants: The patient has taken no anticoagulant or antiplatelet agents. ASA Grade Assessment: Per anesthesia. After reviewing the risks and benefits, the patient was deemed in satisfactory condition to undergo the procedure. After obtaining informed consent, the endoscope was passed under direct vision. Throughout the procedure, the patient's blood pressure, pulse, and oxygen saturations were monitored continuously. The Colonoscope was introduced through the mouth, and advanced to the second part of duodenum. The upper GI endoscopy was accomplished without difficulty. The patient tolerated the procedure well. Scope In: 12:07:21 PM Scope Out: 12:14:32 PM Total Procedure Duration Time 0 hours 7 minutes 11 seconds Findings: The Z-line was variable and was found 40 cm from the incisors. Striped mildly erythematous mucosa without bleeding was found in the gastric antrum. Biopsies were taken with a cold forceps for histology. Biopsies were taken with a cold forceps for Helicobacter pylori cultures. The examined duodenum was normal. The cardia and gastric fundus were normal on retroflexion. Impression: - Z-line variable, 40 cm from the incisors. - Erythematous mucosa in the antrum. Biopsied. - Normal examined duodenum. Recommendation: - Await pathology results. - Discharge patient to home. - Resume previous diet. - Continue present medications. - Use sucralfate tablets 1 gram PO QID for 2 weeks. Procedure Code(s): --- Professional --- 05146, Esophagogastroduodenoscopy, flexible, transoral; with biopsy, single or multiple Diagnosis Code(s): --- Professional --- K22.89, Other specified disease of esophagus K31.89, Other diseases of stomach and duodenum R10.13, Epigastric pain R10.11, Right upper quadrant pain CPT copyright 2021 [employer]. All rights reserved. The codes documented in this report are preliminary and upon it infrastructure specialist review may be revised to meet current compliance requirements. MD Kathy Martinez MD 11/11/2024 1:00:00 PM This report has been signed electronically. Number of Addenda: 0 Note Initiated On: 11/11/2024 11:39 AM
--- NOTE | 2024-11-11 13:00 | OP.CCLET_ITS ---
11/11/2024 Tom Crocker [address] [place] [address] Re : Upper GI endoscopy procedure for Tez Abbott Dear Dr. Crocker This procedure was performed on Monday, November 11, 2024. My impressions and recommendations are as follows: Impressions : - Z-line variable, 40 cm from the incisors. - Erythematous mucosa in the antrum. Biopsied. - Normal examined duodenum. Recommendations : - Await pathology results. - Discharge patient to home. - Resume previous diet. - Continue present medications. - Use sucralfate tablets 1 gram PO QID for 2 weeks. My findings are described in the full procedure note, which is enclosed. If I can be of further assistance, please feel free to contact me at Doctor phone number(s): , Work: . Sincerely, MD Kathy Martinez MD 11/11/2024 1:00:00 PM This report has been signed electronically.
--- NOTE | 2024-11-11 13:06 | OP.COLON_ITS ---
Patient Name: Tez Abbott Procedure Date: 11/11/2024 12:14 PM Date of : 1950 Age: 73 Procedure: Colonoscopy Indications: High risk colon cancer surveillance: Personal history of colonic polyps Providers: Kathy Malone MD Referring MD: Tom Crocker Medicines: Monitored Anesthesia Care Patient Profile: This is a 73 year old male. Last Colonoscopy: several years ago. Complications: No immediate complications. Procedure: Pre-Anesthesia Assessment: - Prior to the procedure, a History and Physical was performed, and patient medications and allergies were reviewed. The patient's tolerance of previous anesthesia was also reviewed. The risks and benefits of the procedure and the sedation options and risks were discussed with the patient. All questions were answered, and informed consent was obtained. Prior Anticoagulants: The patient has taken no anticoagulant or antiplatelet agents. ASA Grade Assessment: Per anesthesia. After reviewing the risks and benefits, the patient was deemed in satisfactory condition to undergo the procedure. - Prior to the procedure, a History and Physical was performed, and patient medications and allergies were reviewed. The patient's tolerance of previous anesthesia was also reviewed. The risks and benefits of the procedure and the sedation options and risks were discussed with the patient. All questions were answered, and informed consent was obtained. Prior Anticoagulants: The patient has taken no anticoagulant or antiplatelet agents. ASA Grade Assessment: Per anesthesia. After reviewing the risks and benefits, the patient was deemed in satisfactory condition to undergo the procedure. After I obtained informed consent, the scope was passed under direct vision. Throughout the procedure, the patient's blood pressure, pulse, and oxygen saturations were monitored continuously. The Colonoscope was introduced through the anus and advanced to the cecum, identified by the appendiceal orifice, ileocecal valve and palpation. The colonoscopy was performed without difficulty. The patient tolerated the procedure well. The quality of the bowel preparation was good. Scope In: 12:15:07 PM Scope Withdrawal Time 0 hours 20 minutes 29 seconds Scope Out: 12:47:19 PM Total Procedure Duration Time 0 hours 32 minutes 12 seconds Findings: The perianal and digital rectal examinations were normal. Two semi-pedunculated polyps were found in the sigmoid colon and descending colon. The polyps were 4 to 6 mm in size. These polyps were removed with a hot snare. Resection and retrieval were complete. The exam was otherwise without abnormality on direct and retroflexion views. A less than 5 mm polyp was found in the ascending colon. The polyp was sessile. The polyp was removed with a cold biopsy forceps. Resection and retrieval were complete. Impression: - Two 4 to 6 mm polyps in the sigmoid colon and in the descending colon, removed with a hot snare. Resected and retrieved. - The examination was otherwise normal on direct and retroflexion views. - One less than 5 mm polyp in the ascending colon, removed with a cold biopsy forceps. Resected and retrieved. Recommendation: - Await pathology results. - Repeat colonoscopy in 3 - 5 years for surveillance based on pathology results. - Continue present medications. Procedure Code(s): --- Professional --- 56705, PT, Colonoscopy, flexible; with removal of tumor(s), polyp(s), or other lesion(s) by snare technique 13876, 59, Colonoscopy, flexible; with biopsy, single or multiple Diagnosis Code(s): --- Professional --- Z86.010, Personal history of colonic polyps D12.5, Benign neoplasm of sigmoid colon D12.4, Benign neoplasm of descending colon D12.2, Benign neoplasm of ascending colon CPT copyright 2021 [employer]. All rights reserved. The codes documented in this report are preliminary and upon phlebotomy director review may be revised to meet current compliance requirements. MD Kathy Martinez MD 11/11/2024 1:06:04 PM This report has been signed electronically. Number of Addenda: 0 Note Initiated On: 11/11/2024 12:14 PM
--- NOTE | 2024-11-11 13:06 | OP.CCLET_ITS ---
11/11/2024 Tom Crocker [address] [place] [address] Re : Colonoscopy procedure for Tez Abbott Dear Dr. Crocker This procedure was performed on Monday, November 11, 2024. My impressions and recommendations are as follows: Impressions : - Two 4 to 6 mm polyps in the sigmoid colon and in the descending colon, removed with a hot snare. Resected and retrieved. - The examination was otherwise normal on direct and retroflexion views. - One less than 5 mm polyp in the ascending colon, removed with a cold biopsy forceps. Resected and retrieved. Recommendations : - Await pathology results. - Repeat colonoscopy in 3 - 5 years for surveillance based on pathology results. - Continue present medications. My findings are described in the full procedure note, which is enclosed. If I can be of further assistance, please feel free to contact me at Doctor phone number(s): , Work: . Sincerely, MD Kathy Martinez MD 11/11/2024 1:06:04 PM This report has been signed electronically.
--- NOTE | 2024-11-11 14:52 | POSTOPAN2_ITS ---
Anesthesia Postop Eval I Sum Postop Eval Completion status Anesthesia document: Postop Eval 1 completed: Yes Anesthesia Postop Eval I Summary Anesthesia Postop Eval I Summary: Anesthesia Postop Eval I: Assessment Summary Airway patent Yes 11/11/24 12:58 HIV [email or web address] Spontaneous unlabored Yes 11/11/24 12:58 HIV [email or web address] respirations Mental status Awake 11/11/24 12:58 HIV [email or web address] nausea No 11/11/24 12:58 HIV [email or web address] Vomiting No 11/11/24 12:58 HIV [email or web address] Anesthesia Postop Eval I: Fluid Summary Crystalloid volume administer 20 11/11/24 12:58 HIV [email or web address] (ml) Colloids volume administered ( ml) Blood Product volume administered (ml) Total IV fluid infused 20 11/11/24 12:58 HIV [email or web address] Anesthesia Postop Eval I: Summary Notes Anesthesia Complication No 11/11/24 12:58 HIV [email or web address] Anesthesia Complication Comment: Post-operative progress note Anesthesia: Postop Eval II Evaluation Mental status: Awake Pain Level: 0 nausea: No Vomiting: No
--- NOTE | 2024-11-11 14:52 | PCM.POSTANE2 ---
Anesthesia Postop Eval I Sum Postop Eval Completion status Anesthesia document: Postop Eval 1 completed: Yes Anesthesia Postop Eval I Summary Anesthesia Postop Eval I Summary: Anesthesia Postop Eval I: Assessment Summary Airway patent Yes 11/11/24 12:58 PAPERHANGER [email or web address] Spontaneous unlabored Yes 11/11/24 12:58 PAPERHANGER AND PAINTER.[email or web address] respirations Mental status Awake 11/11/24 12:58 PAPERHANGER AND PAINTER.[email or web address] nausea No 11/11/24 12:58 PAPERHANGER AND PAINTER.[email or web address] Vomiting No 11/11/24 12:58 PAPERHANGER AND [email or web address] Anesthesia Postop Eval I: Fluid Summary Crystalloid volume administer 20 11/11/24 12:58 PAPERHANGER AND [email or web address] (ml) Colloids volume administered ( ml) Blood Product volume administered (ml) Total IV fluid infused 20 11/11/24 12:58 PAPERHANGER AND [email or web address] Anesthesia Postop Eval I: Summary Notes Anesthesia Complication No 11/11/24 12:58 [email or web address] AND [email or web address] Anesthesia Complication Comment: Post-operative progress note Anesthesia: Postop Eval II Evaluation Mental status: Awake Pain Level: 0 nausea: No Vomiting: No
== END 2024-11-11 14:07 | disposition home or self-care (01) ==
LOC: EN 10:40 → AC 10:43
PROVIDERS: PCP Family Medicine; Referring Provider Family Medicine; Visit Provider Surgery
PROC: 0DJD8ZZ Inspection of Lower Intestinal Tract, Via Natural or Artificial Opening Endoscopic (ICD-10-PCS; CPT 45378; principal; 2024-11-11 11:55)
DX: Z12.11 Encounter for screening for malignant neoplasm of colon (principal); D12.5 Benign neoplasm of sigmoid colon; E78.5 Hyperlipidemia, unspecified; I12.9 Hypertensive chronic kidney disease with stage 1 through stage 4 chronic kidney disease, or unspecified chronic kidney disease; N18.9 Chronic kidney disease, unspecified; I25.10 Atherosclerotic heart disease of native coronary artery without angina pectoris; K21.9 Gastro-esophageal reflux disease without esophagitis; D12.2 Benign neoplasm of ascending colon; Z86.0100 Personal history of colon polyps, unspecified; K22.89 Other specified disease of esophagus
CPT/HCPCS: 45380; 45385; 43239; 88305; 88342; A4216

== ENCOUNTER 2024-11-24 08:16 | Day surgery (SDC) | payer MEDICARE, SELFPAY ==
--- NOTE | 2024-11-23 10:41 | PAT.ANESEVAL ---
Pre-Assessment Diagnosis/Proposed Procedure Planned Operative Procedure(s): Robotic Cholecystectomy w/grams Anesthesia History Anesthesia History - meter mechanic: Anesthesia History - meter mechanic Hx Hospitalization No 11/23/24 09:19 Any Problems With Anesthesia No 11/23/24 09:19 Cholinesterase deficiency No 11/23/24 09:19 You/Your Family Experience No 11/23/24 09:19 fever (hyperthermia) with Relationship Recent Exposure to Contagious No 11/11/24 11:11 Disease Does patient have nerve No 11/23/24 09:19 stimulator Patient instructed to have device shut off --Does patient have Pacemaker or ICD? When Was Last Pacemaker Check QUESTION #4 FULL TEXT: You/Your Family Experience fever (hyperthermia) with Anesthesia Last Oral Intake Last Oral intake: Last Oral Intake NPO since Meds taken in AM with sips of water? Meds patient instructed to take am of surgery PONV PONV - meter mechanic: PONV - meter mechanic Female No 11/23/24 09:19 HX of Motion Sickness No 11/23/24 09:19 HX of N/V After Surgery No 11/23/24 09:19 Non-Smoker Yes 11/23/24 09:19 Duration of Surgery greater Yes 11/23/24 09:19 than 60 minutes Number of Risk Factors 2 11/23/24 09:19 PONV Score Moderate Risk 11/23/24 09:19 Height & Weight Height & Weight: Anesthesia: Height & Weight Height 5 ft 10 in 11/11/24 11:11 Respiratory Assessment Respiratory Assessment - meter mechanic: Respiratory Tract Infection Hx - meter mechanic Hx Respiratory Tract Infection No 11/23/24 09:19 STOP Sleep Apnea STOP Sleep Apnea - meter mechanic: STOP Sleep Apnea - meter mechanic Hx Hypertension Yes 11/23/24 09:19 Hx Sleep Apnea Yes 11/23/24 09:19 CPAP Yes 11/23/24 09:19 BIPAP No 11/23/24 09:19 Do you snore loudly (louder than talking or can be heard Do you often feel tired/ fatigued/ sleepy during daytime? Has anyone observed you stop breathing during sleep? STOP Results Positive 11/23/24 09:19 QUESTION #5 FULL TEXT : Do you snore loudly (louder than talking or can be heard through closed doors)? 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 Specify any problems Hx of Preganancy in last 3 N/A 11/23/24 09:19 Months Nurse Filling Out Transfusion [facility] 11/23/24 09:19 & Questions: Date: 11/23/24 11/23/24 09:19 Time: 09:20 11/23/24 09:19 Patient unable to answer at this time (ie. confused, unrespo /Reproduction History /Reproductive History - meter mechanic: /Reproductive Hx- meter mechanic Hx Now Gestational Age (in weeks): EDC: Hx Hx Para Hx Section SAB No 11/23/24 09:19 PFSH Medical History Wears hearing aid History of renal disease Anemia Sleep apnea Gallstones Wears glasses Wears dentures Cancer Low iron Restless legs Back pain Dietary restriction Non-smoker CPAP (continuous positive airway pressure) dependence Leg cramps History of pain when walking History of edema History of echocardiogram History of stress test Cardiology follow-up encounter Hx of undescended testicle Varicose veins of both lower extremities Elevated blood pressure reading in office with white coat syndrome, without diagnosis of hypertension Uncontrolled hypertension Wears hearing aid in both ears Cellulitis of left lower extremity without foot Nonobstructive atherosclerosis of coronary artery History of non-ST elevation myocardial infarction (NSTEMI) (11/26/20) Hyperlipidemia CKD (chronic kidney disease) Obesity Essential (primary) hypertension Testicular malignancy Nonrheumatic aortic (valve) stenosis Parkinsons disease Tremor, essential Gout Home Medications ?Medication ?Instructions ?Recorded ?Last Taken ?Type carbidopa 50 mg-levodopa 200 1 tab PO TID parkinsons 03/26/21 11/11/24 History mg-entacapone 200 mg tablet cholecalciferol (vitamin D3) 50 50 mcg PO DAILY 07/05/21 01/06/23 History mcg (2,000 unit) capsule carvedilol 25 mg tablet 25 mg PO BID 12/31/22 11/11/24 History ascorbic acid (vitamin C) 500 mg 500 mg PO BID 09/27/24 Unknown History capsule carbidopa 25 mg-levodopa 100 mg 1 tab PO TID PRN TREMORS 09/27/24 Unknown History tablet clonidine HCl 0.1 mg tablet 0.1 mg PO Q8H PRN hypertensive 09/27/24 Unknown History emergency ferrous sulfate 325 mg (65 mg 325 mg PO BID 09/27/24 Unknown History iron) tablet hydralazine 50 mg tablet 50 mg PO Q8H 09/27/24 11/11/24 History hydrochlorothiazide 12.5 mg tablet 12.5 mg PO QDAY 09/27/24 Unknown History magnesium 250 mg tablet 250 mg PO BID 09/27/24 Unknown History mecobalamin (vitamin B12) 5,000 1,000 mcg PO QDAY 09/27/24 Unknown History mcg chewable tablet pramipexole 0.25 mg tablet 0.25 mg PO QHS restless legs 09/27/24 Unknown History primidone 50 mg tablet 100 mg PO QAM 09/27/24 11/11/24 History primidone 50 mg tablet 150 mg PO QHS 09/27/24 Unknown History omeprazole 40 mg capsule,delayed 40 mg PO QDAY #30 caps 11/03/24 Unknown Rx release sucralfate 1 gram tablet 1 g PO 4X/DAY #56 tabs 11/11/24 Unknown Rx amlodipine 5 mg tablet 5 mg PO QHS 11/23/24 Unknown History Allergy/AdvReac Type Severity Reaction Status Date / Time clindamycin Allergy Swelling Verified 11/23/24 09:13 Sulfa (Sulfonamide Allergy Unknown, Verified 11/23/24 09:13 Antibiotics) A CHILD allopurinol AdvReac Intermediate Possible Verified 11/23/24 09:13 cause of rash on legs: went away after stopping simvastatin AdvReac myalgia Verified 11/23/24 09:13 Family History Father CAD (coronary artery disease) Sudden cardiac , Onset Age: 59 Myocardial infarction, Onset Age: 59 Hypertension Mother Heart disease Hypertension Brother Sudden cardiac , Onset Age: 68 Surgical History (Updated 11/23/24 @ 09:21 by Lourdes Dickson) History of esophagogastroduodenoscopy (EGD) History of cardiac catheterization S/P hernia repair History of colonoscopy History of lymph node excision History of left heart catheterization (01/21/21) History of surgical removal of testicle History of tonsillectomy Social History household members: spouse current occupational status: retired Smoking Status: Never smoker alcohol intake: never substance use type: does not use caffeine: No what type of physical activity do you participate in: bicycling frequency: 1-2 times per week duration: 30-45 minutes/day seatbelt use: always do you feel safe at home: Yes Audit: Pertinent Findings Pertinent Findings EKG Perinent findings: 11/26/2020. Sinus rhythm 68 bpm. First-degree AV block. Otherwise normal. Echo (EF%) pertinent findings: 05/28/2022. EF 55%. LVH. Mild aortic stenosis. Mean aortic valve gradient 13 mmHg. Consult pertinent findings: Cardiology 05/15/2022. Hypertension. Chronic. Continue current medications and add diuretic. Aortic stenosis. Repeat echo. Additional pertinent findings: Hemoglobin 10.3 g/dL. 10/24/2024. Stable Recommendation Anesthesia Recommendation Anesthesia recommendation: OPTIMIZED for anesthesia
[2024-11-24] VITALS (11 sets, daily range): BP systolic 126–159; BP diastolic 71–80; PULSE 58–84; RESP 14–20; TEMP 36.1–36.7; O2SAT 93–100; BMI 31.4
[2024-11-24] MEDS: 0.9% Normal Saline (1000mL) 1,000 ML 15 ML IV (09:13)
[2024-11-24] MEDS: INDOCYANINE GREEN 3.75 MG in Syringe 1.5 ML 999 MG IV (09:16)
--- NOTE | 2024-11-24 09:36 | PCM.PRE.AN2 ---
ASA Classification* ASA Classification ASA Classification: 3 Assessment & Plan Anesthesia* Anesthesia Assessment Anesthesia Assessment: Discussed sedation and/or anesthesia options, risks, benefits, and alternatives with patient/parents/legal guardian/POA. Questions invited. The patient/parents/legal guardian/POA seems to understand and agrees to proceed with anesthesia plan. Reviewed the physical assessment, medical history, allergy history and patient home medications list prior to surgery/procedure/anesthetic and documented any changes. Performed airway and anesthesia risk assessments. Anesthesia Type Anesthesia Type: General (Consider Burnet scope intubation. Patient has mild aortic stenosis. Plan for phenylephrine to avoid any increasing heart rate or decrease in blood pressure.) History Source History Obtained from:: Patient and Chart Anesthesia Focused Assessment* Temperature: 98.1 F Pulse Rate: 59 Blood Pressure: 159/76 Respiratory Rate: 20 Pulse Ox: 100 Oxygen Delivery Method: Room Air Airway Assessment Mouth opens: 2 cm Mallampati Score: IV Teeth Condition: Dentures (Upper dentures are out.) and Missing (Patient has several missing teeth on the bottom. Rest are tight.) Neck Range of motion (ROM): Full ROM Focused Labs Anesthesia Preop lab: CBC WBC 5.3 K/mm3 (4.4-11.0) 10/24/24 15:55 10/24/24 RBC 3.46 M/mm3 (4.6-6.2) L 10/24/24 15:55 10/24/24 Hgb 10.3 g/dL (13.0-16.5) L 10/24/24 15:55 10/24/24 Hct 30.4 % (40-54) L 10/24/24 15:55 10/24/24 Plt Count 182 K/mm3 (150-450) 10/24/24 15:55 10/24/24 CHEMISTRY Potassium 4.5 mmol/L (3.5-5.1) 10/24/24 15:55 10/24/24 Sodium 139 mmol/L (136-145) 10/24/24 15:55 10/24/24 Magnesium 2.2 mg/dL (1.6-2.6) 03/09/23 13:54 03/09/23 Phosphorus 3.3 mg/dL (2.5-4.9) 09/19/24 08:10 09/19/24 BUN 39 mg/dL (7-18) H 10/24/24 15:55 10/24/24 Creatinine 1.50 mg/dL (0.70-1.30) H 10/24/24 15:55 10/24/24 Glucose 98 mg/dL (74-106) 10/24/24 15:55 10/24/24 TSH 1.95 uIU/mL (0.358-3.74) 10/22/23 08:55 10/22/23 COAG PT 12.7 SECONDS (11.7-14.9) 11/26/20 04:40 11/26/20 Pre-Assessment Diagnosis/Proposed Procedure Planned Operative Procedure(s): Robotic Cholecystectomy w/grams Anesthesia History Anesthesia History - advanced practice professional: Anesthesia History - advanced practice professional Hx Hospitalization No 11/23/24 09:19 Any Problems With Anesthesia No 11/23/24 09:19 Cholinesterase deficiency No 11/23/24 09:19 You/Your Family Experience No 11/23/24 09:19 fever (hyperthermia) with Relationship Recent Exposure to Contagious No 11/24/24 09:02 Disease Does patient have nerve No 11/23/24 09:19 stimulator Patient instructed to have device shut off --Does patient have Pacemaker No 11/24/24 09:02 or ICD? When Was Last Pacemaker Check QUESTION #4 FULL TEXT: You/Your Family Experience fever (hyperthermia) with Anesthesia Last Oral Intake Last Oral intake: Last Oral Intake NPO since 00:00 11/24/24 09:02 Meds taken in AM with sips of Yes 11/24/24 09:02 water? Meds patient instructed to take am of surgery Any additional information?: Yes NPO since: 04:00 (Patient water at 4 AM.) Meds taken in AM with sips of water?: Yes PONV PONV - advanced practice professional: PONV - advanced practice professional Female No 11/23/24 09:19 HX of Motion Sickness No 11/23/24 09:19 HX of N/V After Surgery No 11/23/24 09:19 Non-Smoker Yes 11/23/24 09:19 Duration of Surgery greater Yes 11/23/24 09:19 than 60 minutes Number of Risk Factors 2 11/23/24 09:19 PONV Score Moderate Risk 11/23/24 09:19 Height & Weight Height & Weight: Anesthesia: Height & Weight Height 5 ft 10 in 11/24/24 09:02 Weight: 99.2 kg 11/24/24 09:02 Body Mass Index (BMI) 31.4 11/24/24 09:02 Respiratory Assessment Respiratory Assessment - advanced practice professional: Respiratory Tract Infection Hx - advanced practice professional Hx Respiratory Tract Infection No 11/23/24 09:19 STOP Sleep Apnea STOP Sleep Apnea - advanced practice professional: STOP Sleep Apnea - advanced practice professional Hx Hypertension Yes 11/23/24 09:19 Hx Sleep Apnea Yes 11/23/24 09:19 CPAP Yes 11/23/24 09:19 BIPAP No 11/23/24 09:19 Do you snore loudly (louder than talking or can be heard Do you often feel tired/ fatigued/ sleepy during daytime? Has anyone observed you stop breathing during sleep? STOP Results Positive 11/23/24 09:19 QUESTION #5 FULL TEXT : Do you snore loudly (louder than talking or can be heard through closed doors)? 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 Specify any problems Hx of Preganancy in last 3 N/A 11/23/24 09:19 Months Nurse Filling Out Transfusion [facility] 11/23/24 09:19 & Questions: Date: 11/23/24 11/23/24 09:19 Time: 09:20 11/23/24 09:19 Patient unable to answer at this time (ie. confused, unrespo /Reproduction History /Reproductive History - advanced practice professional: /Reproductive Hx- advanced practice professional Hx Now Gestational Age (in weeks): EDC: Hx Hx Para Hx Section SAB No 11/23/24 09:19 Active Medications Active Medications: Current Medications Generic Name Dose Route Start Last Admin Trade Name Jennifer PRN Reason Stop Dose Admin Sodium Chloride 1,000 mls @ 15 mls/hr 11/24/24 08:25 11/24/24 09:13 IV 15 mls/hr .Q48H CHANELLE Administration PFSH Medical History Wears hearing aid History of renal disease Anemia Sleep apnea Gallstones Wears glasses Wears dentures Cancer Low iron Restless legs Back pain Dietary restriction Non-smoker CPAP (continuous positive airway pressure) dependence Leg cramps History of pain when walking History of edema History of echocardiogram History of stress test Cardiology follow-up encounter Hx of undescended testicle Varicose veins of both lower extremities Elevated blood pressure reading in office with white coat syndrome, without diagnosis of hypertension Uncontrolled hypertension Wears hearing aid in both ears Cellulitis of left lower extremity without foot Nonobstructive atherosclerosis of coronary artery History of non-ST elevation myocardial infarction (NSTEMI) (11/26/20) Hyperlipidemia CKD (chronic kidney disease) Obesity Essential (primary) hypertension Testicular malignancy Nonrheumatic aortic (valve) stenosis Parkinsons disease Tremor, essential Gout Home Medications ?Medication ?Instructions ?Recorded ?Last Taken ?Type carbidopa 50 mg-levodopa 200 1 tab PO TID parkinsons 03/26/21 11/24/24 History mg-entacapone 200 mg tablet cholecalciferol (vitamin D3) 50 50 mcg PO DAILY 07/05/21 11/23/24 History mcg (2,000 unit) capsule carvedilol 25 mg tablet 25 mg PO BID 12/31/22 11/24/24 History ascorbic acid (vitamin C) 500 mg 500 mg PO BID 09/27/24 11/23/24 History capsule carbidopa 25 mg-levodopa 100 mg 1 tab PO TID PRN TREMORS 09/27/24 Unknown History tablet clonidine HCl 0.1 mg tablet 0.1 mg PO Q8H PRN hypertensive 09/27/24 11/23/24 History emergency ferrous sulfate 325 mg (65 mg 325 mg PO BID 09/27/24 11/23/24 History iron) tablet hydralazine 50 mg tablet 50 mg PO Q8H 09/27/24 11/24/24 History hydrochlorothiazide 12.5 mg tablet 12.5 mg PO QDAY 09/27/24 11/23/24 History magnesium 250 mg tablet 250 mg PO BID 09/27/24 11/23/24 History mecobalamin (vitamin B12) 5,000 1,000 mcg PO QDAY 09/27/24 11/23/24 History mcg chewable tablet pramipexole 0.25 mg tablet 0.25 mg PO QHS restless legs 09/27/24 11/23/24 History primidone 50 mg tablet 100 mg PO QAM 09/27/24 11/24/24 History primidone 50 mg tablet 150 mg PO QHS 09/27/24 11/23/24 History omeprazole 40 mg capsule,delayed 40 mg PO QDAY #30 caps 11/03/24 11/24/24 Rx release sucralfate 1 gram tablet 1 g PO 4X/DAY #56 tabs 11/11/24 11/24/24 Rx amlodipine 5 mg tablet 5 mg PO QHS 11/23/24 11/23/24 History Allergy/AdvReac Type Severity Reaction Status Date / Time clindamycin Allergy Swelling Verified 11/24/24 09:13 Sulfa (Sulfonamide Allergy Unknown, Verified 11/24/24 09:13 Antibiotics) A CHILD allopurinol AdvReac Intermediate Possible Verified 11/24/24 09:13 cause of rash on legs: went away after stopping simvastatin AdvReac myalgia Verified 11/24/24 09:13 Family History Father CAD (coronary artery disease) Sudden cardiac , Onset Age: 59 Myocardial infarction, Onset Age: 59 Hypertension Mother Heart disease Hypertension Brother Sudden cardiac , Onset Age: 68 Surgical History History of esophagogastroduodenoscopy (EGD) History of cardiac catheterization S/P hernia repair History of colonoscopy History of lymph node excision History of left heart catheterization (01/21/21) History of surgical removal of testicle History of tonsillectomy Social History household members: spouse current occupational status: retired Smoking Status: Never smoker alcohol intake: never substance use type: does not use caffeine: No what type of physical activity do you participate in: bicycling frequency: 1-2 times per week duration: 30-45 minutes/day seatbelt use: always do you feel safe at home: Yes Review of Systems (Anesthesia) ROS Narrative System reviewed and no additional complaints, except as documented.
--- NOTE | 2024-11-24 09:44 | PCM.HP.BLA ---
History and Physical Date of Admission: 11/24/24 11/11/24 1052 MR#: [id number] Acct: [id number] Name: CAROLYN CLINTON Rep #: [id number] : 1950 73 From: Kathy Malone MD PCP: Dr. Tom Crocker, DO Status: [facility] Location: [place] [address] History and Physical Date of Admission: 11/11/24 Date of Service: 11/07/24MR#: [id number] Acct: [id number] Name: CAROLYN CLINTON Rep #: [id number] : 1950 Provider: Dr. Kathy Malone MD Age/Sex: 73/M Location: [facility] Status: Signed Intake Vital Signs 09/27/2512:07 11/07/2512:50 Height 5 ft 10 in 5 ft 10 in Weight: 218 lb 215 lb 8 oz BMI 31.2 30.9 BP 111/75 Blood Pressure Location Rt brachial Position Sitting Respiration 18 Pulse 74 Pulse Source Monitor Temp 97.2 F L Temp Source Temporal Pulse Oximetry (%) 99 Oxygen Delivery Method room air Intake Visit Reasons: GALLBLADDER Chief Complaint: gallbladder Accompanied by: Is patient in pain?: No Allergies clindamycin Allergy (Verified 11/07/24 13:50)SwellingSulfa (Sulfonamide Antibiotics) Allergy (Verified 11/07/24 13:50) Unknown, A CHILDallopurinol Adverse Reaction (Intermediate, Verified 11/07/24 13:50) Possible cause of rash on legs: went away after stoppingsimvastatin Adverse Reaction (Verified 11/07/24 13:50) myalgia Medications ?Medication ?Instructions ?Recorded ?Confirmed ?Type carbidopa 50 mg-levodopa 200 1 tab PO TID parkinsons 03/26/21 11/07/24 History mg-entacapone 200 mg tablet cholecalciferol (vitamin D3) 50 50 mcg PO DAILY 07/05/21 11/07/24 History mcg (2,000 unit) capsule carvedilol 25 mg tablet 25 mg PO BID 12/31/22 11/07/24 History amlodipine 10 mg tablet 10 mg PO QHS 01/06/23 11/07/24 History ascorbic acid (vitamin C) 500 mg 1,500 mg PO QDAY 09/27/24 11/07/24 History capsule carbidopa 25 mg-levodopa 100 mg 1 tab PO TID PRN 09/27/24 11/07/24 History tablet clonidine HCl 0.1 mg tablet 0.1 mg PO Q4H PRN 09/27/24 11/07/24 History ferrous sulfate 325 mg (65 mg 325 mg PO BID 09/27/24 11/07/24 History iron) tablet hydralazine 50 mg tablet 50 mg PO BID 09/27/24 11/07/24 History hydrochlorothiazide 12.5 mg tablet 12.5 mg PO QDAY 09/27/24 11/07/24 History magnesium 250 mg tablet 250 mg PO DAILY 09/27/24 11/07/24 History mecobalamin (vitamin B12) 5,000 5,000 mcg PO QDAY 09/27/24 11/07/24 History mcg chewable tablet pramipexole 0.25 mg tablet 0.25 mg PO QHS restless legs 09/27/24 11/07/24 History primidone 50 mg tablet 100 mg PO QAM 09/27/24 11/07/24 History primidone 50 mg tablet 150 mg PO QHS 09/27/24 11/07/24 History omeprazole 40 mg capsule,delayed 40 mg PO QDAY #30 caps 11/03/24 11/07/24 Rx release Have you fallen in the past year?: No PFSH Medical History (Updated 11/09/24 @ 11:[address] Kathy Malone MD) Gallstones Wears glasses Wears dentures Cancer Low iron Restless legs Back pain Dietary restriction Non-smoker CPAP (continuous positive airway pressure) dependence Leg cramps History of pain when walking History of edema History of echocardiogram History of stress test Cardiology follow-up encounter Hx of undescended testicle Varicose veins of both lower extremities Elevated blood pressure reading in office with white coat syndrome, without diagnosis of hypertension Uncontrolled hypertension Wears hearing aid in both ears Cellulitis of left lower extremity without foot Nonobstructive atherosclerosis of coronary artery History of non-ST elevation myocardial infarction (NSTEMI) (11/26/20) Hyperlipidemia CKD (chronic kidney disease) Obesity Essential (primary) hypertension Testicular malignancy Nonrheumatic aortic (valve) stenosis Parkinsons disease Tremor, essential Gout Surgical History S/P hernia repair History of colonoscopy History of lymph node excision History of left heart catheterization (01/21/21) History of surgical removal of testicle History of tonsillectomy Family History Father CAD (coronary artery disease) Sudden cardiac , Onset Age: 59 Myocardial infarction, Onset Age: 59 HypertensionMother Heart disease HypertensionBrother Sudden cardiac , Onset Age: 68 Social History household members: spouse current occupational status: retired Smoking Status: Never smoker alcohol intake: never substance use type: does not use caffeine: No what type of physical activity do you participate in: bicycling frequency: 1-2 times per week duration: 30-45 minutes/day seatbelt use: always do you feel safe at home: Yes HPI HPI HPI: 73-year-old male presents due to gallstones. Patient states that about 2 weeks ago on Thursday he had right upper quadrant pain which occurred in the morning when he woke up. Patient last ate at 530 to 6 PM. Patient did just start omeprazole which she states is helping. Patient states he does have a decreased appetite for about the last 6 weeks per patient and his . Patient has been able to eat peanut butter as well as chicken salad sandwich without any increased right upper quadrant pain. Patient states his pain is currently a 4/10 previous to this was occasionally got up to 10. Patient states his last colonoscopy was 6 to 7 years ago was told to come back in [address] Almazan. Will plan to get that report. Patient denies having polyps at that time. Patient does have bowel movements about every 2 days does take a senna if it goes beyond that. Patient denies any family history of colon cancer. ROS General General: Yes weight change (loss), appetite and fatigue; No colon cancer, breast cancer or weakness Additional Details: loss of appetite HEENT HEENT: No difficulty swallowing, eye injury, eye surgery, swollen glands or hoarseness Endo Endocrine: No thyroid disease, diabetes mellitus, thyroid cancer, Hair loss, heat intolerance or cold intolerance Skin Skin: Yes rash; No changing moles Musc Musculoskeletal: Yes back problems and gout; No arthritis, rheumatoid arthritis or joint pain Cardio Cardiovascular: Yes murmur and high blood pressure; No pacemaker, heart disease, atrial fibrillation, heart attack, heart stent, palpitations, shortness of breath with exertion or chest pain Psych Psychiatric: No depression, anxiety or hearing voices Resp Respiratory: No shortness of breath, Yes sleep apnea, No cough, No COPD, No asthma, No emphysema and No wheezing Gastro Gastrointestinal: Yes abdominal pain, Yes nausea or vomiting, No diarrhea, Yes constipation, No blood in stool, No acid reflux, No hemorrhoids, No ulcers, Yes gallbladder problem and No black,tarry stools Matthew Hematologic: No blood thinners, No blood disorders, No bleeding, Yes anemia and No blood clots Neuro Neurologic: No numbness, No tingling and No weakness Exam Const General: cooperative, healthy appearing, comfortable and no acute distress HENMT Head: normocephalic and atraumatic Neck Neck: supple Resp Effort & Inspection: normal respiratory effort Cardio Rate: regular rate GI Inspection: non-distended Palpation: soft and nontender Skin General: no rashes or lesions noted Neuro General: CN's II-XI intact bilaterally Extrem General: normal to inspection Psych Mental Status: mental status grossly normal Attitude: cooperative Assessment and Plan Assessment and Plan (1) GERD (gastroesophageal reflux disease): Status: Acute (2) Gallstones: Status: Acute Orders: Orders Colonoscopy 11/11/24 EGD 11/11/24 Plan Discussed with patient and his that his history sounds more like reflux or gastric etiology versus gallstones. As patient is able to eat fatty greasy foods without any issues since pain usually occurs in the morning before ever eating. Will have patient continue the omeprazole 40 mg p.o. daily. Also plan to do an EGD. Will also get the report from patient's last colonoscopy to see if he is due for colonoscopy if so we will plan to do it at the same time. I have discussed the above with the patient. I have offered the patient esophagogastroduodenoscopy and colonoscopy for evaluation. I have explained the risks/benefits of the procedure and described the procedure. I have discussed the risks with the patient, including but not limited to: infection, bleeding, perforation of the GI tract requiring emergency surgery, inability to complete the procedure, injury to any internal organs, complications of anesthesia, etc. - the patient understands and agrees to proceed. I have answered all the patient's questions to the patient's satisfaction and the patient has no further questions. The patient has been given instructions for the colon cleansing preparation. 1 day of clears, MiraLAX Dulcolax prep. Kathy Malone M.D. Pager: [phone] [facility] [address] [place] [address], [facility], [address] [place] [address] Office: [phone] Coding Level of Care Code Off vis,est,level 3 Diagnoses GERD (gastroesophageal reflux disease) K21.9 Gallstones K80.20 Clinical Quality Measures Falls Risk Screening/Assistive Devices Have you fallen in the past year?: No 11/09/24 1137 <Electronically signed by Kathy Malone MD> Date Kathy Malone MD 11/11/24 1053 <Electronically signed by Kathy Malone MD> Cosigner Signature (if applicable): CC: Dr. Tom Crocker, DO; Dr. Kathy Malone MD~ Signed ADDENDUM by Dr. Kathy Malone MD on 11/11/24 at 1201 Addendum I have examined the patient and the H&P has been reviewed. There are no clinical changes since date of exam. 11/11/24 1201<Electronically signed by Kathy Malone MD>
[2024-11-24 09:51] LABS: Absolute Lymphocyte Count 0.87 X10^3/uL (0.83-4.51); Basophil# 0.03 X10^3/uL; Basophil% 0.5 % (0-1); Eosinophil# 0.16 X10^3/uL; Eosinophils% 2.9 % (0-5); Hematocrit 27.8 % (40-54); Lymphocyte # 0.87 X10^3/ul (0.83-4.51); Lymphocyte % 15.6 % (19-41); Mean Corpuscular Volume 83.5 fL (80-94); Mean Platelet Vol. 10.4 fl (6.2-12.0); Monocyte# 0.44 X10^3/uL; Monocyte% 7.9 % (0-10); NRBC Flagged by Analyzer 0 % (0-5); Neutrophil # 4.04 X10^3/uL (2.7-7.7); Neutrophil % 72.2 % (47-70); Platelet Count 189 K/mm3 (150-450); RBC Distribution Width CV 14.8 % (11.6-14.6); RBC Distribution Width SD 43.9 fl (35.1-43.9); Red Blood Count 3.33 M/mm3 (4.6-6.2); White Blood Count 5.6 K/mm3 (4.4-11.0)
[2024-11-24 09:52] LABS: AST(SGOT) 14 U/L (<=37); Alanine Aminotransfer ALT/SGPT < 5 U/L (<=46); Albumin, Serum 4.1 g/dL (3.4-4.8); Alkaline Phosphatase 107 U/L (40-129); Bilirubin, Direct 0.13 mg/dL (0.00-0.30); Globulin 2.2 g/dL (2.2-4.2); Protein, Total 6.3 g/dL (5.9-8.4); Total Bilirubin 0.27 mg/dL (0.00-1.30)
--- NOTE | 2024-11-24 10:00 | GALL_PTH ---
PATIENT: CAROLYN ABBOTT LOC: [facility] [place] U#:[id number] AGE/SX: 74/M ROOM: RE11/24/[address]: Dr. Kathy Malone MD : 1950 BED: DIS: 11/24/2024 SPEC #: [id number] RECD: 11/24/24 14:34 STATUS: NOEL RETalib #: [id number] RUPAL: 11/24/24 10:[address]: Kathy Malone DEPT: SURGICAL PATHOLOGY RECD BY: Raffy Brunner ENTERED: 11/24/24 14:34 SP TYPE: PEREZ COLEMAN DR: Dr. Tom Crocker, DO Tissues: A - Gallbladder, NOS Procedures: Surgery Specimen Level III HEADER OPERATION: Robotic cholecystectomy PRE-OP DIAGNOSIS: GERD, gallstones TISSUE SUBMITTED: A-Gallbladder MICROSCOPIC DIAGNOSIS A, GALLBLADDER, CHOLECYSTECTOMY: -CHOLELITHIASIS, CHOLESTEROLOSIS. -BENIGN PERICYSTIC LYMPH NODE x1. MICROSCOPIC DESCRIPTION Slides are reviewed. GROSS DESCRIPTION A. Received in formalin labeled Carolyn Abbott and designated gallbladder is a green-haile, wrinkled, previously disrupted gallbladder that measures 9.5 cm long by 4.0 cm in diameter. The mucosa is guevara-green, granular with focal yellow-guevara flecks. Sectioning shows a 0.1-0.2 cm wall thickness. The lumen contains multiple yellow-brown, irregularly-shaped calculus fragments that aggregate to 4.5 x 4.5 x 1.8 cm. There is a possible cystic duct lymph node that measures 0.6 x 0.5 x 0.4 cm. Plasterer Tender sections are submitted as follows:Cassette Summary:A1-cystic duct shave margin, possible cystic duct lymph node trisected, multiple gallbladder wall sections FLAQUITO 11/24/2024 CPT:75196
[2024-11-24] MEDS: Cefazolin 2 GM in Syringe IV (10:33)
[2024-11-24] MEDS: Bupiv/Epi 0.25% 30 ML Vial (11:04)
[2024-11-24] MEDS: Sugammadex Sodium 200 MG/2 ML VIAL IV (12:37)
--- NOTE | 2024-11-24 12:46 | OP.PCM_ITS ---
Operative Report (Standard) Operative Information Date of Procedure: 11/24/24 Pre-Operative Diagnosis: Right upper quadrant pain, cholelithiasis operating room scheduler: Yes Cost Control Supervisor: Zac Woodson RN Documented Start/Stop Times: Operation Date: 11/24/24 10:00 Case Time Into Pre-Op 11/24/24 08:22 Out of Pre-Op 11/24/24 10:28 Anesthesia Start 11/24/24 10:30 Into Room 11/24/24 10:30 Procedure Start 11/24/24 10:55
--- NOTE | 2024-11-24 12:46 | PCM.OPRPT ---
Operative Report (Standard) Operative Information Date of Procedure: 11/24/24 Pre-Operative Diagnosis: Right upper quadrant pain, cholelithiasis Post-Operative Diagnosis: Same, acute on chronic cholecystitis Surgery/Procedure Performed: Robotic cholecystectomy crime prevention police officer: Yes Endless Steamer Tender: Zac Woodson Tasks completed by certified surgical tech/first assistant: Opening & closing Type of Anesthesia: General/Supplemental RN Documented Start/Stop Times: Operation Date: 11/24/24 10:00 Case Time Into Pre-Op 11/24/24 08:22 Out of Pre-Op 11/24/24 10:28 Anesthesia Start 11/24/24 10:30 Into Room 11/24/24 10:30 Procedure Start 11/24/24 10:55 Procedure End 11/24/24 12:49 Anesthesia End 11/24/24 12:55 Out of Room 11/24/24 12:55 Into Recovery 11/24/24 13:00 Out of Recovery 11/24/24 14:08 Into Phase II Recovery 11/24/24 14:09 Out of Phase II 11/24/24 15:47 Procedure Start Time: 10:55 Procedure Stop Time: 12:49 Select all DRAINS/GRAFTS/IMPLANTS that apply: None Special Medications: Ancef 2 g IV x 1 Estimated Blood Loss: 30 cc Specimen collected: Yes Description of specimen(s) removed: Gallbladder Description of surgery: Indications: this is a 74 year-old male who developed abdominal pain/nausea/vomiting and on workup was found to have right upper quadrant pain, cholelithiasis, with a normal common bile duct. Laparoscopic cholecystectomy was elected. Description procedure: The patient was placed on operating table in supine position. A timeout was completed verifying correct patient, procedure, site, position and special equipment prior to beginning procedure. General Anesthesia was induced. The abdomen was prepped and draped in usual sterile fashion. An incision was made in the natural skin line below the umbilicus. The fascia was elevated and incised. The peritoneum was elevated and incised. Entry into the peritoneum was confirmed visually and no bowel was noted in the vicinity of the incision. Marc trocar was placed. The abdomen was insufflated with carbon dioxide to a pressure of 12-15 mmHg. Patient tolerated insufflation well. The laparoscope was then inserted and abdomen inspected. No injuries from initial trocar placement were noted. Additional trochars were then inserted in the following locations 8 mm trocar left upper quadrant and 2 more 8 mm trochars in right lower quadrant and left lower quadrant. The abdomen was inspected there is noted to be adhesions in the right upper quadrant with omentum as well as to the previously placed mesh at the umbilicus to the omentum. The table is placed in reverse Trendelenburg position with the right side up. Robot was docked. The dome of the gallbladder was grasped with atraumatic grasper passed through the lateral port and retracted over the dome of the liver. Adhesions from the omentum to the abdominal wall were taken down with cautery. Infundibulum was then grasped with atraumatic grasper through the midclavicular port and retracted to the right lower quadrant. Artery was found to be on top of and running parallel with the cystic duct. The peritoneum overlying the gallbladder infundibulum was then incised and cystic duct and artery identified and circumferentially dissected. ICG was used to visualize the cystic duct. The cystic duct and artery were then doubly clipped and divided close to the gallbladder. The gallbladder then dissected from its peritoneal attachments by electrocautery. gallbladder was noted to be partially intrahepatic, acutely inflamed. Hemostasis was checked and the gallbladder was removed using the endoscopic retrieval bag through the umbilical port. The gallbladder is passed off table as specimen. The gallbladder fossa was irrigated with saline and hemostasis obtained with electrocautery. Leticia was also placed in the gallbladder fossa. There is no evidence of bleeding from the gallbladder fossa or cystic artery leakage of bile from the cystic duct stump. Secondary trochars removed under direct vision. No bleeding was noted the trocar sites. The laparoscope was withdrawn and umbilical trocar removed. The abdomen was allowed to collapse. The fascia of the 12 mm trocar was closed with a [id number]-ve-rjutv 0 Vicryl suture. The skin was closed with sutures of 4-0 Monocryl and Steri-Strips. The patient was extubated. The patient tolerated procedure well and was taken to the postanesthesia care unit in stable condition. Surgical Findings: See operative report Complications Complications: No
--- NOTE | 2024-11-24 12:54 | EX.PCM.DISCH ---
Discharge Instructions Diet Discharge Diet: Light diet - advance as tolerated Activity Discharge Activity: May Not Drive (while taking narcotic pain medications.) May shower in (days): 1 Lifting Restrictions: no lifting >20 lbs x 2 wks, no strenuous exercise for 4 wks Dressing / Incision Call your doctor if your incision/area has: Continuous Slow Oozing, Sudden Increased Bleeding, Increased Pain/ Swelling, Increased Redness, Foul Smelling Discharge and Swelling at the incision site Call your doctor if you observe: Fever of 101 or Higher Remove Dressing in: 2 days Cleanse incision/area with: Soap & Water Additional Dressing/Incision Instructions:: Steri-Strips will fall off in 7 to 10 days, if they do not fall off okay to remove after 10 days. Follow Up Care Please Follow Up With: Kathy Malone MD When: Call the office for a follow-up appointment 2 weeks; after 5 PM and on the weekends call [phone] with any concerns. Test Results: Test results from this visit will be discussed in further detail at your follow-up appointment, if applicable. Discharge Plan Admission Attending Provider: Kathy Malone Primary Care Provider: Tom Crocker Instructions Print Language: Malay Discharge Orders/Prescriptions Prescriptions: New hydrocodone-acetaminophen 5-325 mg tablet 1 tab PO Q6H PRN (Reason: pain) 3 Days Qty: 10 0RF Continued pramipexole 0.25 mg tablet 0.25 mg PO QHS primidone 50 mg tablet 100 mg PO QAM cholecalciferol (vitamin D3) 50 mcg (2,000 unit) capsule 50 mcg PO DAILY magnesium 250 mg tablet 250 mg PO BID ascorbic acid (vitamin C) 500 mg capsule 500 mg PO BID hydralazine 50 mg tablet 50 mg PO Q8H carbidopa-levodopa 25-100 mg tablet 1 tab PO TID PRN (Reason: TREMORS) clonidine HCl 0.1 mg tablet 0.1 mg PO Q8H PRN (Reason: hypertensive emergency) primidone 50 mg tablet 150 mg PO QHS Rx Instructions: Parkinson's, Tremor ferrous sulfate 325 mg (65 mg iron) tablet 325 mg PO BID mecobalamin (vitamin B12) 5,000 mcg tablet,chewable 1,000 mcg PO QDAY [id number]-sqfssqfm-pwcxvffkww 50-200-200 mg tablet 1 tab PO TID Patient Comments: TAKE 1 TABLET BY MOUTH THREE TIMES DAILY carvedilol 25 mg tablet 25 mg PO BID hydrochlorothiazide 12.5 mg tablet 12.5 mg PO QDAY sucralfate 1 gram tablet 1 g PO 4X/DAY Qty: 56 0RF Rx Instructions: Take 1 hour before meals and at bedtime amlodipine 5 mg tablet 5 mg PO QHS omeprazole 40 mg capsule,delayed release(DR/EC) 40 mg PO QDAY Qty: 30 0RF Other Ambulatory Orders: CBC-Complete Blood Cnt No Diff (Routine) Timeframe: [id number] Facility: [facility] - Location: Laboratory Ordered By: Dr. Kathy Malone Referrals / Follow Up: Tom Crocker DO [Primary Care Provider] - Disposition Disposition (needs filled in before D/C Order can be placed): Home, Self Care
--- NOTE | 2024-11-24 13:08 | PCM.POST.ANE ---
Anesthesia: Postop Eval I Current Vital Signs Temperature: 97 F Pulse Rate: 58 Blood Pressure: 156/78 Respiratory Rate: 18 Pulse Ox: 100 Oxygen Delivery Method: Simple Mask Oxygen Flow Rate (L/min): 6 Assessment Airway patent: Yes Spontaneous unlabored respirations: Yes Mental status: Awake and Calm nausea: No Vomiting: No Anesthesia Complication: No Fluid Hydration Crystalloid volume administer (ml): 1,200 Total IV fluid infused: 1,200 Progress Note Anesthesia document: Postop Eval 1 completed: Yes
--- NOTE | 2024-11-24 22:48 | POSTOPAN2_ITS ---
Anesthesia Postop Eval I Sum Postop Eval Completion status Anesthesia document: Postop Eval 1 completed: Yes Anesthesia Postop Eval I Summary Anesthesia Postop Eval I Summary: Anesthesia Postop Eval I: Assessment Summary Airway patent Yes 11/24/24 13:10 CIVIL DESIGNER.SKOBY Spontaneous unlabored Yes 11/24/24 13:10 CIVIL DESIGNER.CORRINAOBCameron respirations Mental status Awake,Calm 11/24/24 13:10 CIVIL DESIGNER.SKOBY nausea No 11/24/24 13:10 CIVIL DESIGNER.SKOBY Vomiting No 11/24/24 13:10 CIVIL DESIGNER.SKOBCameron Anesthesia Postop Eval I: Fluid Summary Crystalloid volume administer 1,200 11/24/24 13:10 CIVIL DESIGNER.SKOBY (ml) Colloids volume administered ( ml) Blood Product volume administered (ml) Total IV fluid infused 1,200 11/24/24 13:10 CIVIL DESIGNER.CORRINAOBCameron Anesthesia Postop Eval I: Summary Notes Anesthesia Complication No 11/24/24 13:10 CIVIL DESIGNER.CORRINAOBCameron Anesthesia Complication Comment: Post-operative progress note Anesthesia: Postop Eval II Evaluation Mental status: Awake and Calm Pain Level: 1 nausea: No Vomiting: No Complications Anesthesia Complication: No
--- NOTE | 2024-11-24 22:48 | PCM.POSTANE2 ---
Anesthesia Postop Eval I Sum Postop Eval Completion status Anesthesia document: Postop Eval 1 completed: Yes Anesthesia Postop Eval I Summary Anesthesia Postop Eval I Summary: Anesthesia Postop Eval I: Assessment Summary Airway patent Yes 11/24/24 13:10 DISSOLVER OPERATOR.SKOBY Spontaneous unlabored Yes 11/24/24 13:10 DISSOLVER OPERATOR.CORRINAOBCameron respirations Mental status Awake,Calm 11/24/24 13:10 DISSOLVER OPERATOR.SKOBY nausea No 11/24/24 13:10 DISSOLVER OPERATOR.SKOBY Vomiting No 11/24/24 13:10 DISSOLVER OPERATOR.SKOBCameron Anesthesia Postop Eval I: Fluid Summary Crystalloid volume administer 1,200 11/24/24 13:10 DISSOLVER OPERATOR.SKOBY (ml) Colloids volume administered ( ml) Blood Product volume administered (ml) Total IV fluid infused 1,200 11/24/24 13:10 DISSOLVER OPERATOR.CORRINAOBCameron Anesthesia Postop Eval I: Summary Notes Anesthesia Complication No 11/24/24 13:10 DISSOLVER OPERATOR.CORRINAOBCameron Anesthesia Complication Comment: Post-operative progress note Anesthesia: Postop Eval II Evaluation Mental status: Awake and Calm Pain Level: 1 nausea: No Vomiting: No Complications Anesthesia Complication: No
== END 2024-11-24 15:47 | disposition home or self-care (01) ==
LOC: SDC 08:18 → AC 08:19
PROVIDERS: PCP Family Medicine; Referring Provider Family Medicine; Visit Provider Surgery
PROC: 0FT44ZZ Resection of Gallbladder, Percutaneous Endoscopic Approach (ICD-10-PCS; CPT 47562; principal; 2024-11-24 09:40)
DX: K80.12 Calculus of gallbladder with acute and chronic cholecystitis without obstruction (principal); G20.A1 Parkinson's disease without dyskinesia, without mention of fluctuations; I12.9 Hypertensive chronic kidney disease with stage 1 through stage 4 chronic kidney disease, or unspecified chronic kidney disease; I25.2 Old myocardial infarction; N18.9 Chronic kidney disease, unspecified; K21.9 Gastro-esophageal reflux disease without esophagitis; D64.9 Anemia, unspecified; I35.0 Nonrheumatic aortic (valve) stenosis; I25.10 Atherosclerotic heart disease of native coronary artery without angina pectoris; G25.81 Restless legs syndrome; M10.9 Gout, unspecified; Z88.2 Allergy status to sulfonamides; Z88.1 Allergy status to other antibiotic agents; Z85.47 Personal history of malignant neoplasm of testis; Z79.899 Other long term (current) drug therapy
CPT/HCPCS: 47562; S2900; 00790; 80076; 85025; 88304; 93005; J2405

== ENCOUNTER → 2024-12-02 | Outpatient (CLI) | payer MEDICARE, SELFPAY ==
[2024-12-02 12:18] LABS: Absolute Lymphocyte Count 0.66 X10^3/uL (0.83-4.51); Absolute Neutrophil Count 3.5 X10^3/uL (2.0-7.7); Basophil# 0.03 X10^3/uL; Basophil% 0.6 % (0-1); Eosinophil# 0.18 X10^3/uL; Eosinophils% 3.7 % (0-5); Hematocrit 26.4 % (40-54); Hemoglobin 8.8 g/dL (13.0-16.5); Lymphocyte # 0.66 X10^3/ul (0.83-4.51); Lymphocyte % 13.7 % (19-41); Mean Corp Hgb Conc 33.3 g/dL (32-36); Mean Corpuscular Hgb 29.7 pg (27.0-32.0); Mean Corpuscular Volume 89.2 fL (80-94); Mean Platelet Vol. 10.2 fl (6.2-12.0); Monocyte# 0.38 X10^3/uL; Monocyte% 7.9 % (0-10); NRBC Flagged by Analyzer 0 % (0-5); Neutrophil # 3.52 X10^3/uL (2.7-7.7); Neutrophil % 73.3 % (47-70); Platelet Count 166 K/mm3 (150-450); RBC Distribution Width CV 15.7 % (11.6-14.6); RBC Distribution Width SD 50.1 fl (35.1-43.9); Red Blood Count 2.96 M/mm3 (4.6-6.2); White Blood Count 4.8 K/mm3 (4.4-11.0)
[2024-12-02 12:50] LABS: Anion Gap 12 (5-15); BUN 34 mg/dL (4-19); BUN/Creat Ratio 27.1 RATIO (10-20); Calcium,Total 8.9 mg/dL (7.6-11.0); Carbon Dioxide 22.8 mmol/L (21.0-32.0); Chloride 105 mmol/L (98-108); Creatinine, Serum 1.26 mg/dL (0.70-1.20); EST Glomerular Filtration Rate 60 (>60); Glucose 125 mg/dL (70-99); Phosphorus 3.6 mg/dL (2.7-4.5); Potassium 4.3 mmol/L (3.3-5.1); Sodium Level 139 mmol/L (133-145)
== END | disposition home or self-care (01) ==
LOC: BFHLAB 09:38
PROVIDERS: PCP Family Medicine; Visit Provider Family Medicine
DX: I12.9 Hypertensive chronic kidney disease with stage 1 through stage 4 chronic kidney disease, or unspecified chronic kidney disease (principal); N18.31 Chronic kidney disease, stage 3a; D63.1 Anemia in chronic kidney disease; R53.83 Other fatigue
CPT/HCPCS: 36415; 80048; 82533; 84100; 84443; 85025

== ENCOUNTER → 2025-03-09 | Outpatient (CLI) | payer MEDICARE, SELFPAY ==
[2025-03-09 09:41] LABS: Hematocrit 33.4 % (40-54); Hemoglobin 11.1 g/dL (13.0-16.5); Immature Granulocytes Count 0.030 X10^3/uL (0.0-0.0); Mean Corp Hgb Conc 33.2 g/dL (32-36); Mean Corpuscular Volume 90.5 fL (80-94); Mean Platelet Vol. 10.1 fl (6.2-12.0); NRBC Flagged by Analyzer 0 % (0-5); Platelet Count 145 K/mm3 (150-450); RBC Distribution Width CV 14.7 % (11.6-14.6); RBC Distribution Width SD 47.9 fl (35.1-43.9); Red Blood Count 3.69 M/mm3 (4.6-6.2); White Blood Count 4.6 K/mm3 (4.4-11.0)
[2025-03-09 10:11] LABS: Uric Acid 8.3 mg/dL (3.5-7.2)
[2025-03-09 10:23] LABS: Anion Gap 11 (5-15); BUN 37 mg/dL (4-19); BUN/Creat Ratio 27.0 RATIO (10-20); Calcium,Total 9.0 mg/dL (7.6-11.0); Carbon Dioxide 24.6 mmol/L (21.0-32.0); Chloride 105 mmol/L (98-108); Glucose 109 mg/dL (70-99); Potassium 4.8 mmol/L (3.3-5.1)
== END | disposition home or self-care (01) ==
LOC: LAB 08:54
PROVIDERS: PCP Family Medicine; Referring Provider Family Medicine; Visit Provider Family Medicine
DX: N18.31 Chronic kidney disease, stage 3a (principal); D64.9 Anemia, unspecified; E79.0 Hyperuricemia without signs of inflammatory arthritis and tophaceous disease
CPT/HCPCS: 36415; 80048; 84100; 84550; 85025

== ENCOUNTER → 2025-06-26 | Outpatient (CLI) | payer MEDICARE, SELFPAY ==
--- OUTSIDE RECORDS SUMMARY | 2025-06-26 07:32 | XMS RPT_ITS | CCD ---
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 Razia Maya Primary Care Provider [phone] Dr. Razia Maya Referring Provider [phone] Dr. Federico Chacko Attending Provider Sara Gastelum Attending Provider Unavailable Razia Maya DO Primary Care Provider Dr. Razia Maya Primary Care Provider [phone] Dr. Razia Maya Referring Provider Dr. Kathy Boss Attending Provider RAZIA MAYA Primary Care Unavailable MILENA HERMAN Attending Unavailable RAZIA MAYA Primary Care Unavailable MILENA HERMAN Attending Unavailable MILENA HERMAN Referring Unavailable MILENA HERMAN Attending Unavailable Dr. Kathy Boss Referring Provider Dr. Kathy Boss Other Provider Razia Maya Primary Care Provider [phone] Dr. Razia Maya Primary Care Provider [phone] Dr. Kathy Boss Attending Provider Dr. Razia Maya Referring Provider Razia Maya DO Primary Care Provider ADELINA GUERRA DO Attending Unavaila ble FRANCESCO DO, DR RAZIA Villa Primary Care Unavailab le DEGENHARD DO, ADELINA Wilson Attending Unavaila ble FRANCESCO DO, DR RAZIA Villa Primary Care Unavailab le DEGENHARD DO, ADELINA Wilson Attending Unavaila ble FRANCESCO DO, DR RAZIA Villa Primary Care Unavailab le DEGENHARD DO, ADELINA Wilson Attending Unavaila ble FRANCESCO DO, DR RAZIA Villa Primary Care Unavailab le MICCO INTERNAL GRINDER TENDER-TOOL CHECKER, SHERICE Carmona Attending Unavaila ble FRANCESCO DO, DR RAZIA Villa Primary Care Unavailab le FRANCESCO DO, DR RAZIA Villa Attending Unavailab le FRANCESCO DO, DR RAZIA Villa Primary Care Unavailab le DEGENHARD DO, ADELINA Wilson Attending Unavaila ble FRANCESCO DO, DR RAZIA Villa Primary Care Unavailab le ANJALI PA-C, SIM Attending Unavailab le FRANCESCO DO, DR RAZIA Villa Primary Care Unavailab le MICCO INTERNAL GRINDER TENDER-TOOL CHECKER, SHERICE Carmona Attending Unavaila ble FRANCESCO DO, DR RAZIA Villa Primary Care Unavailab cresencio HAUSER MD, VIOLETTE Attending Unavailable FRANCESCO DO, DR RAZIA Villa Primary Care Unavailab le FRANCESCO DO, DR RAZIA Villa Primary Care Unavailab le NEDDO INTERNAL GRINDER TENDER-TOOL CHECKER, LEONARDO Villa Attending Unavaila ble DEGENHARD DO, ADELINA Wilson Attending Unavaila ble FRANCESCO DO, DR RAZIA Villa Primary Care Unavailab cresencio BOSS MD, KATHY Consulting Unavailable [facility] DO, Razia Villa Primary Care Provider Razia Maya Primary Care Provider [facility] , Dr. Santos Primary Care Provider [phone] Francesco DO, Dr. Santos Attending Provider [phone] [facility] , Dr. Santos Referring Provider [phone] Rosa Marie Attending Provider Unavailable Laith AUDIT CLERKS SUPERVISOR-CSera Attending Provider Laith BRAUN-CSera Referring Provider Francesco DO, Dr. Santos Primary Care Provider [facility] , Dr. Santos Attending Provider [phone] Francesco DO, Dr. Snatos Referring Provider [phone] Rosa Marie Attending Provider Unavailable Laith AUDIT CLERKS SUPERVISOR-C, Sera Attending Provider [phone] Laith AUDIT CLERKS SUPERVISOR-C, Sera Referring Provider Kira BRAGA, Dr. Chavez Attending Provider [phone] Kira BRAGA, Dr. Chavez Other Provider Ginna BRAGA, Dr. Caballero Attending Provider [phone] Ginna BRAGA, Dr. Caballero Referring Provider [phone] Razia Maya A Primary Care Provider Francesco VERDE, Dr. Santos Primary Care Provider Francesco VERDE, Dr. Santos Referring Provider Kira BRAGA, Dr. Chavez Attending Provider [phone] Kira BRAGA, Dr. Chavez Other Provider Francesco VERDE, Dr. Santos Attending Provider Lindsay ALVARADO-Betsy Ba Attending Provider Francesco, Razia Primary Care Unavailable Laith, Sera Attending Unavailable Francesco, Razia Referring Unavailable Francesco, Razia Primary Care Unavailable RobotKathy hernandez Attending Unavailable Francesco, Razia Primary Care Unavailable Francesco, Razia Referring Unavailable RobothamKathy Attending Unavailable Francesco, Razia Primary Care Unavailable Laith, Sera Referring Unavailable Laith, Sera Attending Unavailable Francesco, Razia Referring Unavailable Francesco, Razia Primary Care Unavailable Francesco, Razia Attending Unavailable Francesco, Razia Referring Unavailable Francesco, Razia Primary Care Unavailable Francesco, Razia Attending Unavailable Francesco, Razia Attending Unavailable Francesco, Razia Primary Care Unavailable Francesco, Razia Referring Unavailable Francesco, Razia Primary Care Unavailable Francesco, Razia Attending Unavailable Francesco, Razia Primary Care Unavailable Robotham, Kathy Attending Unavailable Francesco, Razia Primary Care Unavailable Federico Chacko Referring Unavailable GinnaFederico Attending Unavailable Francesco, Razia Primary Care Unavailable Rosa Marie Attending Unavailable Francesco, Razia Referring Unavailable Francesco, Razia Attending Unavailable Francesco, Razia Primary Care Unavailable Francesco, Razia Attending Unavailable Francesco, Razia Primary Care Unavailable Francesco, Razia Referring Unavailable Francesco, Razia Attending Unavailable Francesco, Razia Primary Care Unavailable Francesco, Razia Referring Unavailable Francesco, Razia Primary Care Unavailable Francesco, Razia Referring Unavailable Robotham, Kathy Attending Unavailable Robotham, Kathy Consulting Unavailable Francesco, Razia Primary Care Unavailable Francesco, Razia Referring Unavailable Robotham, Kathy Consulting Unavailable Robotham, Kathy Attending Unavailable Francesco, Razia Referring Unavailable Francesco, Razia Primary Care Unavailable Betsy Montoya Attending Unavailable Francesco, Razia Referring Unavailable Francesco, Razia Primary Care Unavailable Robotham, Kathy Attending Unavailable Francesco, Razia Primary Care Unavailable Sailors, Orlando Attending Unavailable Sailors, Orlando Referring Unavailable Francesco, Razia Primary Care Unavailable Francesco, Rzaia Attending Unavailable MILENA HERMAN Referring Unavailable FRANCESCO, RAZIA A Primary Care Unavailable SELF Referring Unavailable FRANCESCO, RAZIA A Primary Care Unavailable TERESA URIOSTEGUI Attending Unavailable GILA, TERESA Referring Unavailable FRANCESCO, RAZIA A Primary Care Unavailable RALPH NORIEGA Attending Unavailable FRANCESCO, RAZIA Primary Care Unavailable RALPH NORIEGA Attending Unavailable FRANCESCO, RAZIA Primary Care Unavailable SULTANA BACON Attending Unavailable FRANCESCO, RAZIA A Primary Care Unavailable FRANCESCO, RAZIA A Primary Care Unavailable MILTON BASILIO Attending Unavailable Allergies Allergy Classification Reported Allergen(s) Allergy Type Date of Onset Reaction(s) Facility (20 sources) clindamycin; Translations: [clindamycin] drug allergy 5 Swelling [facility] Work Phone: (1 source) Sulfonamides (Antibiotic) drug allergy 5 Unknown [facility] Work Phone: (20 sources) Allopurinol; Translations: [ALLOPURINOL] Drug Allergy 1 Possible cause of rash on legs: went away after stopping [facility] (19 sources) Simvastatin; Translations: [SIMVASTATIN] Drug Allergy 1 myalgia [facility] (20 sources) Sulfonamides (Antibiotic); Translations: [SULFA (SULFONAMIDE ANTIBIOTICS)] Allergy to substance 1 Unknown [facility] (17 sources) Sulfonamides (Antibiotic); Translations: [sulfa drugs] Drug allergy 2 [facility] (16 sources) [facility]ol Drug [facility] 2 [facility] ([facility] Simvastatin Allergy to substance 1 [facility] (1 source) Allopurinol Drug Allergy 5 [facility] (1 source) Simvastatin Drug Allergy 5 [facility] Medications Current Medications Medication Drug Class(es) Dates Sig (Normalized) Sig (Original) amLODIPine 5 mg oral tablet (20 sources) Dihydropyridine Calcium Channel [place] Start: 11-23-2024 take 1 tablet by mouth at bedtime Amlodipine 5 mg tablet Active 5 mg PO AT BEDTIME November 23, 2024 12:00am Start: 11-27-2020 End: 11-23-2024 take 1 tablet by mouth once daily Amlodipine 10 mg tablet Discontinued 10 mg PO DAILY 90 3 December 23, 2021 2:19pm January 06, 2023 2:53pm Comment on above: Take 1 tablet by gabriel th once daily. Take 10 mg by mouth once daily. amoxicillin 875 mg oral tablet (2 sources) Penicillin-class Antibacterial Start: 10-21-19 End: 10-31-19 take 1 tablet by mouth twice daily amoxicillin (AMOXIL) 875 mg tablet Indications: Acute otitis externa of both ears, unspecified type Take 1 tablet by mouth two times a day for 10 days. 20 tablet 0 10/21/2023 10/31/2023 Active Comment on above: Take 1 tablet by gabriel th two times a day for 10 days. ascorbic acid 500 mg oral capsule (20 sources) Start: 12-08-19 take 2 capsules by mouth twice daily Ascorbic Acid (Vitamin C) 500 mg capsule Active 1000 mg PO TWICE A DAY December 07, 2024 1:57pm Start: 09-27-2024 End: 12-07-2024 take 1 capsule by mouth twice daily Ascorbic Acid (Vitamin C) 500 mg capsule Discontinued 500 mg PO TWICE A DAY September 27, 2024 12:57pm December 07, 2024 1:58pm Start: 09-27-2024 take 3 capsules by m outh once daily Ascorbic Acid (Vitamin C) 500 mg capsule Active 1500 mg PO daily September 27, 2024 12:57pm Start: 04-27-2023 End: 04-26-2024 take 1 tablet by mouth at dinner Ascorbic Acid (vitami n C) 1000 MG tablet Take 1 tablet (1,000 mg) by mouth with evening meal. And a meal 90 tablet 3 04/27/2023 04/26/2024 Active Start: 05-15-2022 End: 09-27-2024 take 1 capsule by mouth three times daily Ascorbic Acid (Vitamin C) 500 mg capsule Discontinued 500 mg PO THREE TIMES A DAY May 15, 2022 12:00am September 27, 2024 1:04pm Start: 04-22-2022 End: 01-19-2024 Ascorbic Acid (VITAMIN C PO) Take 500 mg by mouth. 0 04/22/2022 01/19/2024 Discontinued Start: 01-01-2018 End: 01-03-2020 take 1 g by mouth once daily Ascorbic Acid (Vitamin C) 1,000 mg tablet Discontinued 1 g PO daily January 01, 2018 3:14pm January 03, 2020 4:00pm Start: 01-01-2018 End: 01-03-2020 take 1 g by mouth once daily Ascorbic Acid (Vitamin C) Discontinued 1 GM PO daily January 01, 2018 3:14pm January 03, 2020 4:00pm Start: 12-30-2017 End: 01-01-2018 take 2 g by mouth every six hours Ascorbic Acid (Vitamin C) 1,000 mg tablet Discontinued 2 g PO EVERY 6 HOURS December 30, 2017 12:00am January 01, 2018 3:15pm Start: 12-30-2017 End: 01-01-2018 take 2 g by mouth every six hours Ascorbic Acid (Vitamin C) Discontinued 2 GM PO EVERY 6 HOURS December 30, 2017 12:00am January 01, 2018 3:15pm Start: 06-20-2015 take 2 tablets by mo uth once daily VITAMIN C 1000 MG TABS Two tablets by mouth daily ASCORBIC ACID [id number] Federico Chacko MD Start: 10-18-2013 End: 12-30-2017 take 2000 mg by mouth once daily Vitamin C Discontinue d 2000 MG PO DAILY October 18, 2013 1:00am December 30, 2017 10:31am take 2 tablets by mo uth twice daily ascorbic acid, vitamin C, (VITAMIN C) 500 mg tablet Take 1,000 mg by mouth two times a day. Active take 3 tablets by mo uth once daily ascorbic acid, vitamin C, (VITAMIN C) 500 mg tablet Take 1,500 mg by mouth once daily. 0 Active Comment on above: Take 500 mg by mouth once daily. Take 1,500 mg by gabriel th once daily. azithromycin 250 mg oral tablet (1 source) Macrolide Antimicrobial Start: 03-26-20 End: 03-26-20 take 2 tablets by mouth once, then take 1 tablet by mouth once daily azithromycin (ZITHROMAX Z-ELKIN) 250 mg tablet Take 2 tablets by mouth one time only for 1 dose. THEN 1 TAB DAILY FOR 4 DAYS. 6 tablet 03/26/2025 03/26/2025 Active augmented betamethasone 0.5 mg/ml topical cream (16 sources) Corticosteroid Start: 10-30-19 betamethasone, augmented, (Diprolene AF) 0.05 % cream APPLY TO THE AREAS OF RASH ON THE LEGS DAILY NEEDED 10/29/2021 Active carbidopa 25 mg / levodopa 100 mg oral tablet (20 sources) Aromatic Amino Acid Decarboxylation Inhibitor Start: 05-22-20 End: 08-20-20 take 2 tablets by mouth twice daily in the morning carbidopa-levodopa (Sinemet) 25-100 MG tablet Indications: Parkinson's disease with fluctuating manifestations, unspecified whether dyskinesia present (HCC) Take 2 tablets by mouth 2 times daily. AM and midday Do not start before May 22, 2025. 270 tablet 3 05/22/2025 08/20/2025 Active Start: 05-22-2025 End: 08-20-2025 take 1 tablet by mouth once daily carbidopa-levodopa CR (Sinemet CR) 50-200 MG ER tablet Indications: Parkinson's disease with fluctuating manifestations, unspecified whether dyskinesia present (HCC) Take 1 tablet by mouth Nightly. Do not crush or chew. Do not start before May 22, 2025. 90 tablet 3 05/22/2025 08/20/2025 Active Start: 12-07-2024 Carbidopa-Levo dopa 50-200 mg tablet extended release Active 1 {tbl} PO THREE TIMES A DAY December 07, 2024 12:00am Start: 09-27-2024 Carbidopa-Levo dopa 25-100 mg tablet Active 1 {tbl} PO THREE TIMES A DAY as needed for TREMORS September 27, 2024 1:00am Start: 10-29-2023 End: 05-11-2025 take 1 tablet by mouth three times daily carbidopa-levodopa CR (Sinemet CR) 50-200 MG ER tablet Indications: Parkinson's disease with fluctuating manifestations, unspecified whether dyskinesia present (HCC) Take 1 tablet by mouth 3 times daily. Do not crush or chew. 270 tablet 3 01/18/2025 05/11/2025 Discontinued (Reorder) Start: 07-28-2023 End: 07-27-2024 take 1 tablet by mouth three times daily carbidopa-levodopa (Sinemet) 25-100 MG tablet Take 1 tablet by mouth 3 times daily. 270 tablet 3 07/28/2023 01/19/2024 Discontinued (Reorder) Start: 04-27-2023 End: 05-11-2025 carbidopa-levodopa (Sinemet) 25-100 MG tablet Indications: Parkinson's disease with fluctuating manifestations, unspecified whether dyskinesia present (HCC) Take 1 tablet by mouth every 8 hours as needed (tremors). With the carb-levo CR 50/200 270 tablet 3 01/19/2024 05/11/2025 Discontinued (Reorder) Start: 03-13-2023 End: 07-28-2023 take 1 tablet by mouth three times daily carbidopa-levodopa CR (Sinemet CR) 50-200 MG ER tablet Take 1 tablet by mouth 3 times daily. Do not crush or chew. 270 tablet 3 03/25/2023 07/28/2023 Discontinued (Side effects) Start: 06-23-2022 End: 04-27-2023 carbidopa-levodopa CR (Chanel et CR) 50-200 MG ER tablet 2 times daily. 0 06/23/2022 04/27/2023 Discontinued Start: 06-23-2022 take 1 tablet by gabriel th every eight hours carbidopa-levodopa CR (Sinemet CR) 50-200 MG ER tablet Dose = 1 tab(s), Oral, q8h, # 90 tab(s), 0 Refill(s) 0 06/23/2022 Active Start: 06-20-2015 take 1 tablet by gabriel th three times daily CARBIDOPA-LEVODOPA ER 50-200 MG CR-TABS One tablet by mouth three times daily CARBIDOPA-LEVODOPA [id number] Federico Chacko MD take 1 tablet by gabriel th every eight hours as needed carbidopa-levodopa CR (SINEMET CR) 25-100 mg per tablet Take 1 tablet by mouth every 8 hours as needed (Worsening parkinsons tremors). Active cholecalciferol 0.05 mg oral capsule (20 sources) Vitamin D Start: 07-05-2021 take 1 capsule by mouth once daily Cholecalciferol (Vitamin D3) 50 mcg (2,000 unit) capsule Active 50 ug PO DAILY July 05, 2021 12:00am cloNIDine hydrochloride 0.1 mg oral tablet (20 sources) Central alpha-2 Adrenergic Agonist Start: 09-27-2024 take 1 tablet by mouth every eight hours as needed cloNIDine (Catapres) 0.1 MG tablet Take 0.1 mg by mouth every 8 hours as needed. 09/27/2024 Active Start: 09-27-2024 take 1 tablet by gabriel th every four hours as needed Clonidine Hcl 0.1 mg tablet Active 0.1 mg PO Q4H as needed September 27, 2024 1:00am take 1 tablet by gabriel th every twelve hours as needed cloNIDine HCl (CATAPRES) 0.1 mg tablet Take 0.1 mg by mouth two times a day as needed. Active End: 03-14-2024 cloNIDine TTS (CATAPRES-TTS) 0.1 mg/24 hr once daily as needed. 0 03/14/2024 Discontinued (Other) Comment on above: once daily as needed . ergocalciferol 0.05 mg oral tablet (11 sources) Provitamin D2 Compound ergocalciferol, vitamin D2, 50 mcg (2,000 unit) tab Take 2,000 Units by mouth once daily. Active Comment on above: Take by mouth once d aily. ferrous sulfate 325 mg oral tablet (20 sources) Start: 09-27-2024 take 1 tablet by mouth twice daily Ferrous Sulfate 325 mg (65 mg iron) tablet Active 325 mg PO TWICE A DAY September 27, 2024 1:00am Start: 12-31-2022 End: 12-13-2024 take 1 tablet by mouth once daily Ferrous Sulfate (Slow Fe) 142 mg (45 mg iron) Tablet Extended Release Discontinued 142 mg PO DAILY December 31, 2022 12:00am September 27, 2024 12:58pm take 1 tablet by gabriel th twice daily ferrous sulfate 325 mg (65 mg iron) EC tablet Take 1 tablet by mouth two times a day. Active Ferrous Sulfate (SLOW FE PO) Take by mouth. Active Ferrous Sulfate (SLOW FE PO) Take by mouth. 0 Active Comment on above: once daily. hydrALAZINE hydrochloride 25 mg oral tablet (20 sources) Arteriolar Vasodilator Start: take 1 tablet by mouth every six hours Hydralazine 25 mg tablet Active 25 mg PO EVERY 6 HOURS December 07, 2024 12:00am Start: 02-03-2023 End: 01-18-2025 hydrALAZINE (Apresoline) 50 MG tablet Take by mouth. 02/03/2023 Active Start: 02-03-2023 End: 01-18-2025 take 1 tablet by mouth every six hours Hydralazine 50 mg tablet Active 50 mg PO EVERY 6 HOURS September 27, 2024 12:53pm Start: 02-03-2023 End: 12-13-2024 take 1 tablet by mouth twice daily Hydralazine 50 mg tablet Active 50 mg PO TWICE A DAY September 27, 2024 12:53pm Start: 11-11-2022 End: 09-27-2024 take 2 tablets by mouth three times daily Hydralazine 50 mg tablet Discontinued 100 mg PO THREE TIMES A DAY November 11, 2022 12:00am September 27, 2024 1:04pm Start: 11-11-2022 hydrALAZINE (A presoline) 50 MG tablet Take by mouth. 0 02/03/2023 Active Start: 11-11-2022 take 100 mg by mouth three times daily Hydralazine Active 100 MG PO THREE TIMES A DAY November 11, 2022 12:00am Start: 07-08-2022 End: 01-18-2025 take 1 tablet by mouth in the morning hydrALAZINE (Apresoline) 10 MG tablet Take 10 mg by mouth in the morning and 10 mg in the evening. 07/08/2022 01/18/2025 Discontinued take 1 tablet by gabriel th four times daily hydrALAZINE (Apresoline) 25 MG tablet Take 25 mg by mouth 4 times daily. Active End: 03-14-2024 take 1 tablet by [...] three times daily. hydroCHLOROthiazide 12.5 mg oral tablet (20 sources) Thiazide Diuretic Start: 025 take 1 tablet by mouth once daily Hydrochlorothiazide 12.5 mg tablet Active 12.5 mg PO daily September 27, 2024 12:53pm Start: 02-25-2023 take 1 tablet by gabriel th every other day hydroCHLOROthiazide (Microzide) 12.5 MG capsule Take 12.5 mg by mouth daily. Takes 1 tab every other day. 02/25/2023 Active Start: 12-31-2022 End: 09-27-2024 take 1 tablet by mouth every other day Hydrochlorothiazide 12.5 mg Tablet Discontinued 12.5 mg PO EVERY OTHER DAY December 31, 2022 12:00am September 27, 2024 1:04pm Start: 08-20-2021 End: 05-15-2022 take 1 tablet by mouth once daily Hydrochlorothiazide 25 mg tablet Discontinued 25 mg PO DAILY 30 August 20, 2021 1:00am May 15, 2022 9:23am Start: 11-27-2020 End: 03-31-2021 take 1 tablet by mouth once daily Hydrochlorothiazide 25 mg tablet Discontinued 25 mg PO DAILY 90 December 19, 2020 2:02pm March 31, 2021 8:34am take 1 capsule by mo [facility] once daily hydroCHLOROthiazide 12.5 mg capsule Take 12.5 mg by mouth once daily. Active Comment on above: Take 12.5 mg by mout h once daily. hydrocortisone 10 mg/ml / neomycin 3.5 mg/ml / polymyxin b [id number] unt/ml otic suspension (1 source) Aminoglycoside Antibacterial, Polymyxin-class Antibacterial, Corticosteroid Start: 10-21-19 End: 10-26-19 24 neomycin-polymyxin- hydrocortisone (CORTISPORIN) 3.5-10,000-1 mg/mL-unit/mL-% otic suspension Indications: Acute otitis externa of both ears, unspecified type Use 4 Drops in both ears three times a day for 5 days. 3 mL 0 10/21/2023 10/26/2023 Active Comment on above: Use 4 Drops in both ears three times a day for 5 days. Magnesium (20 sources) Start: 09-27-19 take 1 tablet by mouth twice daily Magnesium 250 mg tablet Active 250 mg PO TWICE A DAY September 27, 2024 12:53pm Start: 09-27-2024 take 1 tablet by gabriel th once daily Magnesium 250 mg tablet Active 250 mg PO DAILY September 27, 2024 12:53pm Start: 09-27-2024 take 1 tablet by gabriel th once daily Magnesium 250 mg tablet Active 250 mg PO DAILY September 27, 2024 11:53am Start: 05-15-2022 End: 09-27-2024 take 2 tablets by mouth once daily Magnesium 250 mg tablet Discontinued 500 mg PO DAILY May 15, 2022 12:00am September 27, 2024 1:04pm Start: 05-15-2022 End: 09-27-2024 take 2 tablets by mouth once daily Magnesium 250 mg tablet Discontinued 500 mg PO DAILY May 14, 2022 11:00pm September 27, 2024 12:04pm Start: 05-15-2022 take 500 mg by mouth once greer y Magnesium Active 500 MG PO DAILY May 15, 2022 12:00am Start: 05-15-2022 take 250 mg by mouth once greer y Magnesium Active 250 MG PO DAILY May 15, 2022 12:00am magnesium gluconate 250 mg o ral tablet (20 sources) Start: 04-22-2022 magnesium gluc jeevan 250 MG tablet 250 mg. 04/22/2022 Active take 500 mg by mouth twice daily MAGNESIUM GLUCONATE ORAL Take 500 mg by mouth two times a day. Active take 500 mg by mouth once daily MAGNESIUM GLUCONATE ORAL Take 500 mg by mouth once daily. Active Comment on above: Take 250 mg by mouth once daily. Take 500 mg by mouth once daily. magnesium oxide 400 mg oral tablet (12 sources) magnesium oxide (Mag-Ox) 400 MG tablet Take 250 mg by mouth daily. Active mecobalamin (6 sources) Start: 09-27-2024 Mecobalamin (Vitamin B12) 5,000 mcg tablet,chewable Active 1000 ug PO daily September 27, 2024 1:00am Start: 09-27-2024 take 1 tablet by gabriel th once daily Mecobalamin (Vitamin B12) 5,000 mcg tablet,chewable Active 5000 ug PO daily September 27, 2024 1:00am Start: 09-27-2024 take 1 tablet by gabriel th once daily Mecobalamin (Vitamin B12) 5,000 mcg tablet,chewable Active 5000 ug PO daily September 27, 2024 12:00am metaxalone 800 mg oral tablet (15 sources) Start: 05-15-2022 take 800 mg by mouth three to four times daily Metaxalone Active 800 MG PO 3 to 4 times per day May 15, 2022 12:00am Start: 03-14-2022 End: 01-19-2024 take 1 tablet by mouth every eight hours as needed for muscle spasms metaxalone (Skelaxin) 800 MG tablet TAKE 1 TABLET BY MOUTH EVERY 8 HOURS NEEDED (TIGHTNESS, SPASMS IN LEGS) 0 03/14/2022 01/19/2024 Discontinued nebivolol 10 mg oral tablet (9 sources) Start: 12-07-2024 take 1 tablet by mouth once daily Nebivolol 10 mg tablet Active 10 mg PO daily December 07, 2024 12:00am omeprazole 40 mg delayed release oral capsule (16 sources) Proton Pump Inhibitor Start: 11-03-2024 End: 11-25-2024 take 1 capsule by mouth once daily Omeprazole 40 mg capsule,delayed release(DR/EC) Active 40 mg PO daily 30 November 25, 2024 1:09pm pramipexole dihydrochloride 0.25 mg oral tablet (20 sources) Nonergot Dopamine Agonist Start: 01-30-2025 End: 08-09-2025 take 1 tablet by mouth three times daily pramipexole (Mirapex) 0.25 MG tablet Indications: Parkinson's disease with fluctuating manifestations, unspecified whether dyskinesia present (HCC) , Parkinson disease (HCC) Take 1 tablet (0.25 mg) by mouth 3 times daily. 270 tablet 3 05/11/2025 08/09/2025 Active Start: 04-22-2022 End: 04-18-2025 take 1 tablet by mouth at bedtime Pramipexole 0.25 mg tablet Active 0.25 mg PO AT BEDTIME September 27, 2024 12:54pm restless legs Start: 01-01-2018 End: 09-27-2024 take 1 tablet by mouth three times daily Pramipexole 0.25 mg tablet Discontinued 0.25 mg PO THREE TIMES A DAY January 01, 2018 3:13pm September 27, 2024 1:04pm restless legs Start: 12-30-2017 End: 01-01-2018 take 1 tablet by mouth once daily Pramipexole 0.25 mg tablet Discontinued 0.25 mg PO daily December 30, 2017 12:00am January 01, 2018 3:15pm Start: 12-16-2016 take 0.25 mg by mout h every twenty-four hours PRAMIPEXOLE DIHYDROCHLORIDE 0.5 MG TABS 0.25mg daily PRAMIPEXOLE DIHYDROCHLORIDE [id number] Federico Chacko MD Start: 06-20-2015 End: 02-18-2016 take 1 tablet by mouth three times daily MIRAPEX 0.25 MG TABS One tablet by mouth three times daily PRAMIPEXOLE DIHYDROCHLORIDE [id number] Federico Chacko MD Comment on above: Take 0.25 mg by mout h three times daily. predniSONE 20 mg oral tablet (1 source) Start: 03-26-2025 take 1 tablet by mouth three times daily, then take 1 tablet by mouth twice daily, then take 1 tablet by mouth once daily, then take 0.5 tablet by mouth once daily predniSONE (DELTASONE) 20 mg tablet 20 mg p.o. 3 times daily for 3 days, 20 mg p.o. twice daily for 2 days, 20 mg once a day for 1 day, half a tablet 1 day for 1 day 15 tablet 03/26/2025 Active primidone 50 mg oral tablet (20 sources) Anti-epileptic Agent Start: 05-11-2025 End: 08-09-2025 take 4 tablets by mouth twice daily primidone (Mysoline) 50 MG tablet Indications: Essential tremor Take 4 tablets (200 mg) by mouth 2 times daily. 720 tablet 3 05/11/2025 08/09/2025 Active Start: 01-18-2025 End: 05-11-2025 take 3 tablets by mouth twice daily primidone (Mysoline) 50 MG tablet Indications: Essential tremor Take 3 tablets (150 mg) by mouth 2 times daily. 540 tablet 2 01/18/2025 05/11/2025 Discontinued (Reorder) Start: 09-27-2024 take 1 tablet by gabriel th once daily in the morning Primidone 50 mg tablet Active 100 mg PO EVERY MORNING September 27, 2024 12:54pm Start: 07-28-2023 End: 01-18-2025 take 2 tablets by mouth once daily in the morning, then take 3 tablets by mouth once daily in the evening primidone (Mysoline) 50 MG tablet Indications: Essential tremor Take 2 tabs po QAM and 3 tabs po QPM 450 tablet 3 01/19/2024 01/18/2025 Discontinued (Reorder) Start: 10-27-2022 End: 07-28-2023 primidone (Mysoline) 50 MG t ablet Indications: Essential tremor TAKE 2 TABLETS TWICE A DAY 360 tablet 1 05/18/2023 07/28/2023 Discontinued (Reorder) Start: 04-22-2022 End: 01-04-2023 take 1 tablet by mouth three times daily primidone (Mysoline) 50 MG tablet Indications: Essential tremor Take 1 tablet (50 mg) by mouth 3 times daily. 90 tablet 2 10/06/2022 10/27/2022 Discontinued (Reorder) Start: 11-21-2020 End: 09-27-2024 take 1 tablet by mouth twice daily Primidone 50 mg tablet Discontinued 100 mg PO TWICE A DAY November 21, 2020 12:00am September 27, 2024 1:04pm seizures Start: 11-21-2020 take 100 mg by mouth twice daily Primidone Active 100 MG PO TWICE A DAY November 21, 2020 12:00am Comment on above: Take 100 mg by mouth twice daily. Turmeric extract (2 sources) Start: 11-11-2022 Turmeric Active MG PO November 11, 2022 12:00am vitamin B12 (20 sources) Vitamin B12 take 1 tablet by mouth once daily cyanocobalamin (VITAMIN B-12) 1,000 mcg tab Take 1,000 mcg by mouth once daily. Active Cyanocobalamin ( VITAMIN B 12 PO) Take by mouth. Active Cyanocobalamin ( VITAMIN B 12 PO) Take by mouth. 0 Active Comment on above: Take 1,000 mcg by mo [facility] once daily. Vitamin C 500 mg oral [...] 0 Refill(s) Start Date: 04/22/22 Status: Ordered vitamin e 450 mg oral capsule (5 sources) take 1 capsule by mouth once daily alpha tocopherol (Vitamin E) 1000 units capsule Take 1,000 Units by mouth daily. Active Completed/Discontinued Medications Medication Drug Class(es) Dates Sig (Normalized) Sig (Original) acetaminophen 325 mg / HYDROcodone bitartrate 5 mg oral tablet (13 sources) Opioid Agonist Start: 11-24-2024 End: 12-07-2024 Hydrocodone-Acetamino phen 5-325 mg tablet Discontinued 1 {tbl} PO EVERY 6 HOURS as needed for pain 10 3 0 November 24, 2024 December 07, 2024 1:58pm Postoperative pain Other acute postprocedural pain Start: 01-07-2023 End: 09-27-2024 Hydrocodone-Acetaminophen 5- 325 mg tablet Discontinued 1 - 2 {tbl} PO EVERY 6 HOURS as needed for pain 10 3 0 January 07, 2023 September 27, 2024 1:05pm Postoperative pain Other acute postprocedural pain Start: 01-07-2023 take 1 tablet by gabriel every six hours Hydrocodone-Acetaminophen Active 1 - 2 TABLET PO EVERY 6 HOURS 10 3 January 07, 2023 [id number] 200 actuat albuterol 0.09 mg/actuat metered dose inhaler (18 sources) beta2-Adrenergic Agonist Start: 11-21-2020 End: 11-11-2022 Albuterol Sulfate 90 mcg/actuation HFA aerosol inhaler Discontinued 2 NMA INHALATION 4 TIMES DAILY NEEDED as needed for Dyspnea November 21, 2020 12:00am November 11, 2022 9:07am Start: 11-21-2020 End: 11-11-2022 take 1 puff(s) by inhalation four times daily as needed Albuterol Sulfate Discontinued 2 PUFF INHALATION 4 TIMES DAILY NEEDED November 21, 2020 12:00am November 11, 2022 9:07am allopurinol 300 mg oral tablet (19 sources) Xanthine Oxidase Inhibitor Start: 10-18-2013 End: 07-05-2021 take 1 tablet by mouth once daily Allopurinol 300 MG tablet Discontinued 300 mg PO DAILY October 18, 2013 1:00am July 05, 2021 8:49am gout aspirin 81 mg delayed release oral tablet (20 sources) Nonsteroidal Anti-inflammatory Drug Start: 06-20-2015 End: 09-27-2024 take 1 tablet by mouth once daily Aspirin (Adult Aspirin Regimen) 81 mg tablet,delayed release (DR/EC) Discontinued 81 mg PO DAILY May 15, 2022 12:00am September 27, 2024 1:01pm On Hold: Resume on 01/09/23. Start: 06-20-2015 take 1 tablet by gabriel th once daily ASPIRIN 81 MG TABS One tablet by mouth daily ASPIRIN [id number] Federico Chacko MD Comment on above: Take 81 mg by mouth once daily. carbidopa 50 mg / entacapone 200 mg / levodopa 200 mg oral tablet (20 sources) Aromatic Amino Acid Decarboxylation Inhibitor, Ucflvsyg-M-Dsfavrxlpjskpseg e Inhibitor, Aromatic Amino Acid Start: 03-26-2021 End: 12-13-2024 Fsgrxelrj-Kizuhbhw-Oxsq jacinda 50-200-200 mg tablet Discontinued 1 {tbl} PO THREE TIMES A DAY March 26, 2021 12:00am December 07, 2024 1:58pm parkinsons Start: 03-26-2021 take 1 tablet by gabriel th three times daily Ohnmndime-Zbfluwqo-Chiaeziyee Active 1 T ABLET PO THREE TIMES A DAY March 26, 2021 12:00am Comment on above: Take 1 tablet by gabriel th three times daily. carvedilol 25 mg oral tablet (20 sources) alpha-Adrenergic Alton, beta-Adrenergic Alton Start: 10-03-2021 End: 12-31-2022 Carvedilol 25 mg tablet Discontinued 0 PO TWICE A DAY 270 October 03, 2021 5:28pm December 31, 2022 9:02am 37.5 PO twice a day; Start: 11-27-2020 End: 01-18-2025 take 1 tablet by mouth twice daily Carvedilol 25 mg tablet Discontinued 25 mg PO TWICE A DAY 180 December 19, 2020 2:02pm October 03, 2021 5:29pm Start: 2020 End: 11-27-2020 take 1 tablet by mouth twice daily at mealtime Carvedilol (Coreg) 12.5 mg tablet Discontinued 12.5 mg PO TWICE A DAY 60 2020 12:00am November 27, 2020 12:08pm must administer with a meal/food Comment on above: Take 1 tablet by gabriel th twice daily with meals. Take 25 mg by mouth twice daily with meals. Take 1 tablet by gabriel th two times a day with meals. cefdinir 300 mg oral capsule (18 sources) Cephalosporin Antibacterial Start: End: take 1 capsule by mouth twice daily Cefdinir 300 mg capsule Discontinued 300 mg PO TWICE A DAY 14 March 31, 2021 12:00am July 05, 2021 8:50am chlorthalidone 25 mg oral tablet (20 sources) Thiazide-like Diuretic Start: 022 End: take 1 tablet by mouth every other day Chlorthalidone 25 mg tablet Discontinued 25 mg PO every other day 45 May 16, 2022 9:12am November 11, 2022 9:07am On Hold: OMAR doxazosin 2 mg oral tablet (10 sources) alpha-Adrenergic Alton Start: 023 End: take 1 mg by mouth at bedtime Doxazosin 2 mg Tablet Discontinued 1 mg PO AT BEDTIME December 31, 2022 12:00am September 27, 2024 1:01pm Start: 12-31-2022 take 1 mg by mouth at bedtime Doxazosin Active 1 MG PO AT BEDTIME December 31, 2022 12:00am furosemide 40 mg oral tablet (20 sources) Loop Diuretic Start: 07-05-2021 End: 08-20-2021 Furosemide 40 mg tablet Discontinued 20 mg PO DAILY July 05, 2021 9:28am August 20, 2021 2:47pm Start: 07-05-2021 End: 08-20-2021 take 20 mg by mouth once daily Furosemide Discontinued 20 MG PO DAILY July 05, 2021 9:28am August 20, 2021 2:47pm Start: 07-05-2021 End: 07-05-2021 take 1 tablet by mouth once daily Furosemide 40 mg tablet Discontinued 40 mg PO DAILY July 05, 2021 9:28am July 05, 2021 9:28am Start: 03-31-2021 End: 07-05-2021 Furosemide 40 mg Tablet Disc ontinued 40 mg PO TWICE DAILY 60 0 March 31, 2021 12:00am July 05, 2021 9:28am Take 1 twice a day for the next 3 days, then reduce to 1/day thereafter Start: 11-21-2020 End: 2020 take 1 tablet by mouth once daily Furosemide 40 mg tablet Discontinued 40 mg PO DAILY 30 3 November 21, 2020 9:34am 2020 5:09pm Start: 11-20-2020 End: 11-21-2020 take 2 tablets by mouth twice daily Furosemide 20 mg tablet Discontinued 40 mg PO .COMPLEX November 20, 2020 11:10am November 21, 2020 9:00am 40 mg PO BID today, tomorr and , Will see Reyna tomorrow 11/21/20 in office); Start: 11-20-2020 End: 11-21-2020 take 40 mg by mouth twice daily Furosemide Discontinue d 40 MG PO .COMPLEX November 20, 2020 11:10am November 21, 2020 9:00am 40 mg PO BID today, tomorrow and day, Will see Reyna tomorrow 11/21/20 in office); Start: 01-03-2020 End: 11-21-2020 take 1 tablet by mouth once daily Furosemide 20 mg tablet Discontinued 20 mg PO DAILY November 21, 2020 8:59am November 21, 2020 9:35am Start: 12-30-2017 End: 01-03-2020 take 1 tablet by mouth once daily Furosemide 40 mg tablet Discontinued 40 mg PO daily 90 4 August 03, 2018 4:14pm January 03, 2020 3:58pm Start: 06-20-2015 take 1 tablet by gabriel th once daily LASIX 40 MG TABS One tablet by mouth daily FUROSEMIDE [id number] Federico Chacko MD gabapentin 100 mg oral capsule (18 sources) Anti-epileptic Agent Start: 03-26-2021 End: 07-05-2021 take 2 capsules by mouth twice daily Gabapentin 100 mg capsule Discontinued 200 mg PO TWICE A DAY March 26, 2021 12:00am July 05, 2021 8:50am nerve pain Start: 03-26-2021 End: 07-05-2021 take 200 mg by mouth twice daily Gabapentin Discontinued 200 MG PO TWICE A DAY March 26, 2021 12:00am July 05, 2021 8:50am hydroCHLOROthiazide 25 mg / propranolol hydrochloride 80 mg oral tablet (18 sources) Thiazide Diuretic, beta-Adrenergic Alton Start: 10-18-2013 End: 12-30-2017 Propranolol-Hydrochlorothiaz id 1 EACH tablet Discontinued 2 {tbl} PO TWICE A DAY October 18, 2013 1:00am December 30, 2017 10:32am Start: 10-18-2013 End: 12-30-2017 take 2 tablets by mouth twice daily Propranolol-Hydrochlorothiazid Discontin ued 2 TABLET PO TWICE A DAY October 18, 2013 1:00am December 30, 2017 10:32am 24 hr isosorbide mononitrate 60 mg extended release oral tablet (20 sources) Nitrate Vasodilator Start: 11-19-2021 End: 11-11-2022 take 1 tablet by mouth once daily, then take 1 tablet by mouth every twenty-four hours Isosorbide Mononitrate 60 mg tablet extended release 24 hr Discontinued 60 mg PO DAILY 27 02November 19, 2021 5:14pm November 11, 2022 9:07am Start: 08-27-2021 End: 10-16-2022 take 1 tablet by mouth once daily, then take 1 tablet by mouth every twenty-four hours Isosorbide Mononitrate 30 mg tablet extended release 24 hr Discontinued 30 mg PO DAILY 27 02August 27, 2021 1:00am November 19, 2021 5:15pm Comment on above: Take 30 mg by mouth once daily. ketoconazole 20 mg/ml topical cream (18 sources) Azole Antifungal Start: 04-02-20 End: 07-05-20 Ketoconazole 2 % cream Discontinued 1 NMA TOPICAL DAILY 60 14 0 April 02, 2021 12:00am July 05, 2021 8:50am levocetirizine dihydrochloride 5 mg oral tablet (20 sources) Histamine-1 Receptor Antagonist Start: 10-27-19 End: 12-14-19 take 1 tablet by mouth once daily in the evening Levocetirizine 5 mg Tablet Discontinued 5 mg PO EVERY EVENING December 31, 2022 12:00am September 27, 2024 1:02pm Comment on above: Take 5 mg by mouth d aily at bedtime. losartan potassium 50 mg oral tablet (20 sources) Angiotensin 2 Receptor Alton Start: 06-23-20 End: 03-13-20 losartan (Cozaar) 50 MG tablet Take by mouth. 0 06/23/2022 03/13/2023 Discontinued Start: 10-18-2013 End: 11-11-2022 take 1 tablet by mouth once daily Losartan 100 mg tablet Discontinued 100 mg PO DAILY 90 4 November 18, 2021 12:10pm November 11, 2022 9:07am On Hold: OMAR Comment on above: Take 50 mg by mouth once daily. Multivitamin,Tx-Ir on-Minerals (12 sources) Start: 10-18-2013 End: 12-30-2017 take 1 tablet by mouth once daily Multivitamin,Tx-Iron-M inerals Discontinued 1 TABLET PO DAILY October 18, 2013 10:48am December 30, 2017 10:33am Start: 10-18-2013 End: 12-30-2017 take 1 tablet by mouth once daily Multivitamin,Ll-Cedo-Mhnotlgq Discontinu ed 1 TABLET PO DAILY October 18, 2013 1:00am December 30, 2017 10:33am Multivitamin,Tr-Sieh-Upkemlc s 1 TABLET tablet (6 sources) Start: 10-18-2013 End: 12-30-2017 take 1 tablet by mouth once daily Multivitamin,Za-Cgsl-Npsahmcc 1 TABLET tablet Discontinued 1 {tbl} PO DAILY October 18, 2013 1:00am December 30, 2017 10:33am Start: 10-18-2013 End: 12-30-2017 take 1 tablet by mouth once daily Multivitamin,Ag-Feny-Mmgxwehv 1 TABLET t ablet Discontinued 1 {tbl} PO DAILY October 18, 2013 12:00am December 30, 2017 9:33am patiromer 8400 mg powder for oral suspension (4 sources) Potassium Binder End: 01-19-2024 Patiromer Sorbitex Calcium (Veltassa) 8.4 g pack Take by mouth. 0 01/19/2024 Discontinued microencapsulated potassium chloride 20 meq extended release oral tablet (18 sources) Start: 03-31-2021 End: 07-05-2021 Potassium Chloride (Klor-Con M20) 20 mEq Tablet,Er Particles/Crystals Discontinued 20 meq PO DAILY 30 0 March 31, 2021 12:00am July 05, 2021 8:49am propranolol hydrochloride 80 mg oral tablet (20 sources) beta-Adrenergic Alton Start: 12-30-2017 End: 2020 take 1 tablet by mouth three times daily Propranolol 80 mg tablet Discontinued 80 mg PO THREE TIMES A DAY January 01, 2018 3:13pm 2020 5:07pm Start: 06-18-2015 take 1 tablet by gabriel three times daily PROPRANOLOL HCL 80 MG TABS One tablet by mouth three times daily PROPRANOLOL HCL [id number] Federico Chacko MD Start: 06-18-2015 take 1 tablet by gabriel twice daily PROPRANOLOL HCL 80 MG TABS One tablet by mouth twice daily for tremor PROPRANOLOL HCL [id number] Merly Seth RN Start: 06-18-2015 PROPRANOLOL HC L 80 MG TABS two tablets in the am and one in the evening PROPRANOLOL HCL [id number] Federico Chacko MD rosuvastatin calcium 20 mg oral tablet (1 source) HMG-CoA Reductase Inhibitor End: 10-16-2022 take 1 tablet by mouth once daily rosuvastatin (CRESTOR) 20 mg tablet Take 20 mg by mouth once daily. 0 10/16/2022 Discontinued Comment on above: Take 20 mg by mouth once daily. sodium zirconium cyclosilicate 5000 mg powder for oral suspension (17 sources) Start: 01-06-2023 End: 09-27-2024 Sodium Zirconium Cyclosilicate (Lokelma) 5 gram powder in packet Discontinued 5 g PO .2 times per week January 21, 2023 12:00am September 27, 2024 1:03pm sucralfate 1000 mg oral tablet (4 sources) Aluminum Complex Start: 11-11-2024 End: 12-07-2024 take 1 tablet by mouth four times daily 1 hour(s) before bedtime Sucralfate 1 gram tablet Discontinued 1 g PO 4 TIMES DAILY 56 0 November 11, 2024 12:00am December 07, 2024 1:58pm Take 1 hour before meals and at bedtime terbinafine 250 mg oral tablet (18 sources) Allylamine Antifungal Start: 03-26-2021 End: 03-31-2021 take 1 tablet by mouth four times daily Terbinafine Hcl 250 mg tablet Discontinued 250 mg PO 4 TIMES DAILY March 26, 2021 12:00am March 31, 2021 8:34am fungal infection levothyroxine sodium 0.025 mg oral tablet (2 sources) l-Thyroxine Start: 06-20-2015 End: 12-16-2016 take 1 tablet by mouth once daily LEVOTHYROXINE SODIUM 25 MCG TABS One tablet by mouth daily LEVOTHYROXINE SODIUM [id number] Federico Chacko MD tiZANidine 2 mg oral capsule (18 sources) Central alpha-2 Adrenergic Agonist Start: 11-21-2020 End: 09-27-2024 take 1 capsule by mouth three times daily as needed for pain Tizanidine 2 mg capsule Discontinued 2 mg PO THREE TIMES A DAY as needed for BACK/LEG PAIN November 21, 2020 12:00am September 27, 2024 1:03pm triamcinolone acetonide 0.055 mg/actuat metered dose nasal spray (20 sources) Corticosteroid Start: 05-15-2022 End: 11-11-2022 Triamcinolone Acetonide (Nasacort) 55 mcg aerosol,spray Discontinued 2 NMA INTRANASAL DAILY May 15, 2022 12:00am November 11, 2022 9:07am administer into each nostril Start: 05-15-2022 End: 11-11-2022 take 1 spray(s) nasal route once daily Triamcinolone Acetonide (Nasacort) 55 mcg aerosol,spray Discontinued 2 SPRAY INTRANASAL DAILY May 15, 2022 12:00am November 11, 2022 9:07am administer into each nostril Start: 03-31-2021 End: 11-07-2024 Triamcinolone Acetonide 0.5 % cream Discontinued 1 NMA TOPICAL NEEDED as needed for CELLULITIS April 01, 2021 8:39pm November 07, 2024 1:52pm Apply twice a day to affected left leg area Start: 12-30-2017 End: 01-03-2020 Triamcinolone Acetonide (Devang acort) 55 mcg aerosol,spray Discontinued 1 NMA INTRANASAL daily December 30, 2017 12:00am January 03, 2020 3:59pm Start: 12-30-2017 End: 01-03-2020 Triamcinolone Acetonide (Devang acort) 55 mcg aerosol,spray Discontinued 1 SPRAY INTRANASAL daily December 30, 2017 12:00am January 03, 2020 3:59pm Start: 12-27-2015 NASACORT AQ 55 MCG/ACT AERS One inhalation once daily TRIAMCINOLONE ACETONIDE(NASAL) Razia Maya DO Start: 12-27-2015 NASACORT AQ 55 MCG/ACT AERS Take as directed TRIAMCINOLONE ACETONIDE(NASAL) Federico Chacko MD vitamin b6 100 mg oral tablet (18 sources) Start: 07-05-2021 End: 05-15-2022 take 1 tablet by mouth once daily Pyridoxine (Vitamin B6) 100 mg tablet Discontinued 100 mg PO DAILY July 05, 2021 12:00am May 15, 2022 9:24am Vitamin C 2000 MG (6 sources) Start: 10-18-2013 End: 12-30-2017 take 2000 mg by mouth once daily Vitamin C 2000 MG Discontinued 2000 mg PO DAILY October 18, 2013 1:00am December 30, 2017 10:31am Start: 10-18-2013 End: 12-30-2017 take 2000 mg by mouth once daily Vitamin C 2000 MG Discontinued 2000 mg PO DAILY October 18, 2013 12:00am December 30, 2017 9:31am Problems Active Problems Problem Classification Problem Date Documented Date Episodic/Chronic Abdominal hernia (20 sources) Umbilical hernia; Translations: [Umbilical hernia without obstruction or gangrene] 11-11-2022 Episodic Comment on above: Due to his previous right-sided abdominal surgery more of a loss of domain Acute and unspecified renal failure (1 source) Acute renal failure syndrome; Translations: [Acute kidney failure, unspecified] Episodic Biliary tract disease (8 sources) Gallstone; Translations: [Calculus of gallbladder without cholecystitis without obstruction] 11-07-2024 Episodic Cancer of testis (1 source) Malignant tumor of testis 04-09-2022 Chronic Cardiac dysrhythmias (18 sources) Palpitations; Translations: [Palpitations] 12-19-2020 Episodic Chronic kidney disease (4 sources) Chronic kidney disease stage 3A ; Translations: [Stage 3a chronic kidney disease (HCC)] Onset: 12-13-2024 Chronic Chronic kidney disease (4 sources) Chronic kidney disease; Translations: [Stage 3a chronic kidney disease (HCC)] Onset: 12-11-2022 Chronic obstructive pulmonary disease and bronchiectasis (1 source) Bronchitis, not specified as acute or chronic; Translations: [Sinobronchitis] Onset: 03-26-2025 Episodic Conduction disorders (19 sources) Atrioventricular block, first degree; Translations: [Atrioventricular block] Onset: 06-18-2015 06-18-2015 Chronic Congestive heart failure; nonhypertensive (18 sources) Chronic diastolic heart failure; Translations: [Chronic diastolic (congestive) heart failure] Onset: 10-16-2022 Chronic Coronary atherosclerosis and other heart disease (20 sources) Preinfarction syndrome; Translations: [Unstable angina] Chronic Disorders of lipid metabolism (19 sources) Hyperlipidemia; Translations: [Hyperlipidemia, unspecified] Onset: 12-13-2024 Chronic Disorders of teeth and jaw (18 sources) Dental abscess; Translations: [Periapical abscess without sinus] 10-19-2013 Episodic Esophageal disorders (7 sources) Gastroesophageal reflux disease; Translations: [Gastro-esophageal reflux disease without esophagitis] 11-09-2024 Chronic Essential hypertension (20 sources) Hypertensive disorder; Translations: [Essential (primary) hypertension] Onset: 06-18-2015 06-18-2015 Chronic Comment on above: CONTROLLED WITH MEDS AT THIS TIME Gout and other crystal arthropathies (2 sources) Gout; Translations: [Gout, unspecified] Onset: 02-18-2016 02-18-2016 Chronic Heart valve disorders (20 sources) Mitral stenosis with insufficiency; Translations: [Nonrheumatic aortic (valve) stenosis] Onset: 06-18-2015 06-20-2015 Chronic Hypertension with complications and secondary hypertension (2 sources) Hypertensive emergency; Translations: [Hypertensive emergency] Onset: 12-05-2024 Chronic Malaise and fatigue (18 sources) Asthenia; Translations: [Weakness] 01-21-2021 Episodic Nonspecific chest pain (18 sources) Chest pain; Translations: [Chest pain, unspecified] 12-19-2020 Episodic Other and ill-defined heart disease (19 sources) Cardiomegaly; Translations: [Cardiomegaly] Onset: 06-18-2015 06-18-2015 Chronic Other circulatory disease (18 sources) Elevated blood-pressure reading without diagnosis of hypertension; Translations: [Elevated blood-pressure reading, without diagnosis of hypertension] 05-14-2022 Episodic Other circulatory disease (2 sources) Pulmonary congestion ; Translations: [Other specified symptoms and signs involving the circulatory and respiratory systems] 03-26-2025 Episodic Other circulatory disease (1 source) Other specified symptoms and signs involving the circulatory and respiratory systems; Translations: [Chest congestion] Onset: 03-26-2025 Episodic Other connective tissue disease (1 source) Muscle pain; Translations: [Myalgia, unspecified site] 10-29-2023 Episodic Other ear and sense organ disorders (1 source) Hearing loss 04-09-2022 Chronic Other ear and sense organ disorders (1 source) Acute otitis externa of bilateral ears; Translations: [Unspecified acute noninfective otitis externa, bilateral] 10-21-2023 Episodic Other hereditary and degenerative nervous system conditions (20 sources) Essential tremor; Translations: [Essential tremor] Onset: 02-18-2016 02-18-2016 Chronic Other hereditary and degenerative nervous system conditions (1 source) Essential tremor; Translations: [Essential tremor] Onset: 06-13-2022 Chronic Other nervous system disorders (1 source) H/O: [employer] disorder; Translations: [Personal history of other diseases of the nervous system and sense organs] Episodic Other nutritional; endocrine; and metabolic disorders (15 sources) Obesity; Translations: [Obesity, unspecified] Chronic Other nutritional; endocrine; and metabolic disorders (1 source) Other obesity due to excess calories; Translations: [Class 1 obesity due to excess calories with serious comorbidity and body mass index (BMI) of 31.0 to 31.9 in adult] Onset: 06-07-2025 Chronic Other nutritional; endocrine; and metabolic disorders (1 source) Body mass index (BMI) 31.0-31.9, adult; Translations: [Class 1 obesity due to excess calories with serious comorbidity and body mass index (BMI) of 31.0 to 31.9 in adult] Onset: 06-07-2025 Chronic Other upper respiratory infections (3 sources) Chronic sinusitis; Translations: [Chronic sinusitis, unspecified] Onset: 03-26-2025 03-26-2025 Chronic Parkinson's disease (20 sources) Parkinson's disease; Translations: [Parkinson's disease] Onset: 02-18-2016 02-18-2016 Chronic Comment on above: ON MED/CONTROLLED/ES SENTIAL TREMORS OTHERWISE Parkinson`s disease (4 sources) Parkinson`s disease; Translations: [Parkinson's disease without [...] specified health status] Episodic Residual codes; unclassified (9 sources) History of hernia repair; Translations: [Other specified postprocedural states] 01-23-2023 Episodic Comment on above: open/laparoscopic--- with mesh- umbilical Residual codes; unclassified (2 sources) Non-smoker; Translations: [Other specified health status] 06-12-2023 Episodic Skin and subcutaneous tissue infections (18 sources) Cellulitis of leg, excluding foot; Translations: [Cellulitis of left lower limb] 05-14-2022 Episodic Thyroid disorders (1 source) Hypothyroidism; Translations: [Hypothyroidism, unspecified] Onset: 02-18-2016 02-18-2016 Chronic Unclassified (16 sources) Obstructive sleep apnea syndrome; Translations: [Obstructive sleep apnea (adult) (pediatric)] Onset: 02-18-2016 02-18-2016 Chronic Unclassified (1 source) Class 1 obesity due to excess calories with serious comorbidity and body mass index (BMI) of 31.0 to 31.9 in adult; Translations: [Class 1 obesity due to excess calories with serious comorbidity and body mass index (BMI) of 31.0 to 31.9 in adult] Onset: 06-07-2025 Past or Other Problems Problem Classification Problem Date Documented Date Episodic/Chronic Abdominal pain (1 source) Right upper quadrant pain; Translations: [Right upper quadrant pain] Onset: 11-30-2024 Episodic Fluid and electrolyte disorders (3 sources) Dehydration; Translations: [Dehydration] Onset: 04-30-2023 Episodic Other inflammatory condition of skin (2 sources) Generalized pruritus ; Translations: [Pruritus, unspecified] Episodic Other screening for suspected conditions (not mental disorders or infectious disease) (20 sources) Thallium stress test abnormal; Translations: [Abnormal result of other cardiovascular function study] Onset: 05-26-2022 Episodic Residual codes; unclassified (18 sources) Past history of procedure; Translations: [Personal history of other medical treatment] Onset: 05-28-2022 Episodic Residual codes; unclassified (15 sources) History of cardiac catheterization; Translations: [Other specified postprocedural states] Onset: 01-21-2021 Episodic Residual codes; unclassified (3 sources) Personal history of other medical treatment; Translations: [History of echocardiogram] Onset: 10-13-2022 Episodic Residual codes; unclassified (2 sources) Other specified health status; Translations: [Never smoked cigarettes] Onset: 12-11-2022 Episodic Residual codes; unclassified (2 sources) Other specified postprocedural states; Translations: [Other postprocedural status] Onset: 10-16-2022 01-21-2023 Episodic Spondylosis; intervertebral disc disorders; other back problems (18 sources) Lumbar radiculopathy; Translations: [Radiculopathy, lumbar region] Onset: 11-15-2020 06-13-2022 Episodic Unclassified (3 sources) Family history of ischemic heart disease and other diseases of the circulatory system; Translations: [Family history of sudden ] 06-20-2015 Episodic Results Test Name Value Interpretation [facility] ([facility] ) CAROLYN ABBOTT ([id number]) 1950 M [facility] Date Time Provider Department 06/07/25 9:40 AM SULTANA BACON During your visit today, we recorded the following information about you: Pulse Respiration Blood pressure Weight 64/minute 16/minute 132/72 101.2 kg Height 1.791 m Sultana Bacon APRN.TOOL CHECKER 06/07/2025 9:39 PM Signed Date: June 07, 2025 Chief Complaint: Aortic valve stenosis HISTORY OF PRESENT ILLNESS: Carolyn Abbott is a 74 year old male who presents for for follow-up for chronic hypertension and aortic valve stenosis. Patient states that he has been taking his medications as prescribed. Patient states that he plans to follow further with [facility] in [place] due to living close to that office. ALLERGIES Allergen Reactions Clindamycin Swelling Allopurinol Rash Other reaction(s): Possible cause of rash on legs: went away after stopping Simvastatin Myalgia Other reaction(s): myalgia Sulfa (Sulfonamide * Unknown PAST MEDICAL HISTORY: PAST MEDICAL HISTORY Diagnosis Date Abnormal renal ultrasound No evidence of hemodynamically significant arterial stenosis, involving the right renal artery. Consistent with less than 60% stenosis. No evidence of hemodynamically significant arterial stenosis, involving the left renal artery. Consistent with less than 60% stenosis. Aortic stenosis Bilateral leg pain foward emg results to [...] diastolic dysfunction. Mild aortic stenosis. History of echocardiogram 04/01/2024 LVEF 72%. Mild TR. Mild Mitral valve stenosis. Moderate Aortic valve stenosis: 1.24 cm?, peak gradient 52 mmHg. History of prostate cancer 1980 Diagnosed in mid , with some adenopathy in the abdomen History [...] degeneration PAST SURGICAL HISTORY Procedure Laterality Date REMOVAL GALLBLADDER 11/24/2024 REPAIR EPIGASTRIC HERNIA,REDUC 12/2022 ULTRASOUND GUIDANCE FOR [...] Status: MEDICATIONS: Current Outpatient Medications Medication Sig carbidopa-levodopa (SINEMET 25-100) 25-100 m (more content not included)... Normal [facility] ECG COMPLETEon 06-07-2025 ECG COMPLETE Ventricular Rate : 6 4 BPM Atrial Rate : 64 BPM P-R Interval : 208 ms QRS Duration : 84 ms Q-T Interval : 428 ms QTC Calculation(Bazett) : 441 ms Calculated P [place] : 14 degrees Calculated R [place] : 31 degrees Calculated T [place] : 16 degrees Normal sinus rhythm Normal ECG When compared with ECG of 13-Dec-2024 09:54, No significant change was found Confirmed by MILTON BASILIO DO ([id number]) on 06/17/2025 10:58:32 AM NAME : CAROLYN ABBOTT PID : [id number] : 1950 Gender : Male Race : ORD : [id number] Procedure Date : Jun 07 2025 10:30:24 Edit Date : Jun 17 2025 10:58:34 Diagnosis: Normal sinus rhythm Normal ECG When compared with ECG of 13-Dec-2024 09:54, No significant change was found Confirmed by MILTON BASILIO DO ([id number]) on 06/17/2025 10:58:32 AM Test Reason : HCS Location : 2 : [place] Overread By : MILTON BASILIO DO Edited By : MILTON BASILIO DO Referred By : , Acquired by : , [facility] 37on 05-11-2025 37 Increase the primido ne to 4 tabs twice a day. When you run out of the current carbidopa-levodopa ER around 05/22 this month, switch to two of the regular carbidopa-levodopa 25/100 tabs in the AM and two of the regular carbidopa-levodopa 25/100 tabs in the midday. We will keep you on the ER 50/200 at night. [facility] Office Visiton 05-11-2025 Follow-up visit [id number] Kira Abbott 1950 Date Provider Department Center 05/11/2025 [id number] [facility] NIKKO None Family History Family Status - Relation Status Age at Father Notes: heart problems Mother Notes: heart problem Level of Service:[id number] [place] OFFICE/OUTPATIENT ESTABLISHED LOW MDM 20 MIN Reason for Visit and Comments: Follow-up [054026] Parkinson's Disease [385] [facility] Progress Noteon 05-11-2025 Progress Note [facility] [address] [facility] [address] Dept: [phone] Dept Loc: [phone] Visit type: Established Patient Reason for Visit: Follow-up and Parkinson's Disease Assessment and Plan 1. Essential tremor - primidone (Mysoline) 50 MG tablet; Take 4 tablets (200 mg) by mouth 2 times daily., Starting Rukhsana 05/11/2025, Until 08/09/2025, Normal 2. Parkinson's disease with fluctuating manifestations, unspecified whether dyskinesia present (HCC) - carbidopa-levodopa (Sinemet) 25-100 MG tablet; Take 2 tablets by mouth 2 times daily. AM and midday Do not start before May 22, 2025., Starting 05/22/2025, Until 08/20/2025, Normal - carbidopa-levodopa CR (Sinemet CR) 50-200 MG ER tablet; Take 1 tablet by mouth Nightly. Do not crush or chew. Do not start before May 22, 2025., Starting 05/22/2025, Until 08/20/2025, Normal Subjective HPI: He reports that the increase in the primidone did not help. He is more unsteady on his feet and he has to catch himself from falling forward. He is having more tremor and greater difficulty with walking. He reports that he had to have a cholecystectomy. He reports that he has tried increaseing the carb-levo without any improvement. He denies falls. He denies trouble swallowing. He does feel weak and wobbly when standing for a long time. He has been getting back to exercising on bike or treadmill. He is up to an hour for the bike and 45 min - 1 hour with the treadmill. He received a notice from [employer] that the hinkle of his carb-levo ER will more than double. REVIEW OF SYSTEMS: Review of Systems Constitutional: [...] pain and genital sores. Musculoskeletal: Positive for arthralgias and back pain. Negative for neck pain. Skin: Negative for color change. [...] reaction(s): myalgia Sulfa Antibiotics Current Outpatient Medications: alpha tocopherol (Vitamin E) 1000 units capsule, Take 1,000 Units by mouth daily., Disp: , Rfl: amLODIPine (Norvasc) 5 MG tablet, Take by mouth daily., Disp: , Rfl: cholecalciferol (Vitamin D-3) 50 MCG (2000 UT) capsule, Take by mouth., Disp: , Rfl: cloNIDine (Catapres) 0.1 MG tablet, Take 0.1 mg by mouth every 8 hours as needed., Disp: , Rfl: Cyanocobalamin (VITAMIN B 12 PO), Take by mouth., Disp: , Rfl: Ferrous Sulfate (SLOW FE PO), Take by mouth., Disp: , Rfl: hydrALAZINE (Apresoline) 25 MG tablet, Take 25 mg by mouth 4 times daily., Disp: , Rfl: hydroCHLOROthiazide (Microzide) 12.5 MG capsule, Take 12.5 mg by mouth daily. Takes 1 tab every other day., Disp: , Rfl: magnesium gluconate 250 MG tablet, 250 mg., Disp: , Rfl: nebivolol (Bystolic) 10 MG tablet, Take 10 mg by mouth daily., Disp: , Rfl: pramipexole (Mirapex) 0.25 MG tablet, Take 1 tablet (0.25 mg) by mouth 3 times daily., Disp: 270 tablet, Rfl: 0 betamethasone, augmented, (Diprolene AF) 0.05 % cream, APPLY TO THE AREAS OF RASH ON THE LEGS DAILY NEEDED (Patient not taking: Reported on 05/11/2025), Disp: , Rfl: [START ON 05/22/2025] carbidopa-levodopa (Sinemet) 25-100 MG tablet, Take 2 tablets by mouth 2 times daily. AM and midday Do not start before May 22, 2025., Disp: 270 tablet, Rfl: 3 [START ON 05/22/2025] carbidopa-levodopa CR (Sinemet CR) 50-200 MG ER tablet, Take 1 tablet by mouth Nightly. Do not crush or chew. Do not start before May 22, 2025., Disp: 90 tablet, Rfl: 3 hydrALAZINE (Apresoline) 50 MG tablet, Take by mouth., Disp: , Rfl: magnesium oxide (Mag-Ox) 400 MG tablet, Take 250 mg by mouth daily. (Patient not taking: Reported on 05/11/2025), Disp: , Rfl: omeprazole (PriLOSEC) [address] capsule, Take 40 mg by mouth daily., Disp: , Rfl: primidone (Mysoline) 50 MG tablet, Take 4 tablets (200 mg) (more content not included)... [facility] 03-26-2025 [facility] Office Visit (UCMMAS ) SCARCAROLYN Kristine ([id number]) 1950 M [facility] Date Time Provider Department 03/26/25 1:10 PM TERESA URIOSTEGUI [facility] During your visit today, we recorded the following information about you: Temperature Pulse Respiration Blood pressure 98 degrees 62/minute 18/minute 189/92 Weight 100.7 kg Teresa Uriostegui DO 03/26/2025 1:48 PM Signed [facility] Subjective Carolyn Abbott is a 74 year old male. Patient presents with: Cough: Congestion, drainage Started 3 days ago Cough Cough and Sputum Production: - Onset of cough on . - Sputum production began this morning; described as greenish-yellow. - Denies dyspnea, severe chest pain, or difficulty breathing. - No recent antibiotic use. COPD: - Denies use of inhalers or diuretics. Heartburn: - Managed by a clinical trial manager. Review of Systems Respiratory: Positive for cough. Cardiovascular: (-) chest pain Respiratory: (+) cough, (+) green-yellow sputum, (-) shortness of breath Objective BP 189/92 Pulse 62 Temp 36.7 ?C (98 ?F) Resp 18 Wt 100.7 kg (222 lb) SpO2 96% BMI 31.40 kg/m? Physical Exam General: No acute distress. HEENT: Tympanic membranes normal; oral mucosa normal; no significant nasal congestion. CV: No abnormalities auscultated. Midsystolic murmur present, history of aortic stenosis. Resp: Mild congestion, mild fluid sounds. Congestion seem to be worse in the bilateral bases anterior and posterior {ASSESSMENT/PLAN: 1. Chest congestion - ICD9: 786.9, ICD10: R09.89 (primary diagnosis) - XR CHEST 2V FRONTAL/LAT 2. Sinobronchitis - ICD9: 473.9, 490, ICD10: J32.9, J40 - Acute onset of cough with greenish-yellow sputum production since ; no dyspnea or chest pain. - Lungs with audible congestion on exam; no major nasal congestion or oropharyngeal inflammation. - Order chest X-ray to rule out pneumonia. X-rays do not show any obvious signs of pneumonia, cannot appreciate any obvious signs of fluid wave. Right diaphragm appears slightly elevated, however no signs of perforation, pneumothorax. - Will give a course of Z-Elkin and oral prednisone to help with swelling, prevent bronchitis/worsening infection. Continue Tylenol Motrin, [id number] decongestions and other conservative management for symptoms. Monitor closely and recheck with PCP if no improvement Recording using ambient [employer] software for draft documentation of the visit was discussed with the patient/authorized loss control representative; all questions welcomed and answered. Patient/authorized loss control representative agreed to proceed - XR CHEST 2V FRONTAL/LAT Rock Gila, DO Differential Diagnoses - Chest congestion, sinobronchitis is more likely for the following reason(s): suggested by HANDP and consistent with imaging - Pneumonia, pneumothorax is less likely for the following reason(s): no evidence on imaging and HANDP not suggestive Disposition The patient was discharged. OTC Medications were advised: Procedures Glia, Teresa, DO 03/26/2025 1:45 PM Signed ACUTE BRONCHITIS: You have acute bronchitis. This means the airway passages in your lungs are inflamed. Bronchitis may be caused by viruses or bacteria. Inhaling cigarette smoke will always make it worse. Exposure to irritating chemicals or second hand smoke as well as allergies can contribute to bronchitis. Repeat episodes of bronchitis may cause lifelong lung problems. Acute bronchitis is usually treated with rest, fluids, cough medicine, and possibly antibiotics or inhaled medicine to open up the small airways. It is very important that you avoid smoke and drink increased amounts of fluids. A cool air vaporizer can help thin bronchial secretions. This makes it easier to cough and clear your chest. If you are a cigarette smoker, consider using nicotine gum or skin patches to help you withdraw. Recovery from bronchitis is often slow, but you should start feeling better after 2-3 days of treatment. Please call your doctor or return here if you have any of the following symptoms: Increased fever, chills, or chest pain. Severe shortness of breath or bloody sputum. Do not improve after 3 days of proper treatment. Referring Provider: SELF [200] Allergies As of Date: 03/26/2025 Noted Allergy Reaction CLINDAMYCIN 08/12/2022 7 - Swelling SULFA (SULFONAMIDE ANTIBIOTICS) 08/12/2022 16 - Unknown Date Reviewed: 03/26/2025 Reviewed by: Teresa Uriostegui DO - Fully Assessed Reason for Visit: Cough [28] Cmt: Congestion, drainage Started 3 days ago Primary Visit Diagnosis:Chest congestion [R09.89] Other Visit Diagnosis:Sinobronchitis [J32.9, J40] Order(s):XR CHEST 2V FRONTAL/LAT [3862527] Order #: [id number] FUTURE azithromycin (ZITHROMAX Z-ELKIN) 250 mg tabletTake 2 tablets by mouth one time only for 1 dose. THEN 1 TAB DAILY FOR 4 DAYS.Disp: 6 (more content not included)... Normal [facility] XR CHEST 2V FRONTAL/LATon XR CHEST 2V FRONTAL/LAT * * *Final Report* * * DATE OF EXAM: Mar 26 2025 2:32PM RMX [id number] - XR CHEST 2V FRONTAL/LAT / PROCEDURE REASON: multiple diagnoses * * * * Physician Interpretation * * * * EXAMINATION: CHEST RADIOGRAPH (2 VIEW FRONTAL and LATERAL) CLINICAL HISTORY: Chest congestion Sinobronchitis MQ: XC2_6 EXAM DATE/TIME: 03/26/2025 2:32 PM COMPARISON: No relevant prior studies available. RESULT: Lines, tubes, and devices: None. Lungs and pleura: There are findings felt to represent right pleural thickening. No acute infiltrates or congestion is seen. There is no pneumothorax. Cardiomediastinal silhouette: The cardiac silhouette is normal in size. The aorta is tortuous. Bones and soft tissues: There are no acute osseous abnormalities. There is elevation of the right hemidiaphragm. IMPRESSION: No acute abnormalities. Application Security Specialist: PSCB Transcribe Date/Time: Mar 27 2025 8:16A Dictated by : DAPHNE MORAN MD This examination was interpreted and the report reviewed and electronically signed by: DAPHNE MORAN MD on Mar 27 2025 8:17AM EST [id number] Normal [facility] Absolute lymphocyte countOrd ered By: Razia Maya on 03-09-2025 Lymphocytes Auto (Unsp spec) [#/Vol] 0.85 10*3/uL 0.83-4.51 [facility] Absolute neutrophil countOrd ered By: Razia Maya on 03-09-2025 Neutrophils (Bld) [#/Vol] 3.1 10*3/uL 2.0-7.7 [facility] Anion gap in Serum or Plasma Ordered By: Razia Maya on 03-09-2025 Anion gap [Moles/Vol] 11 mmol/L 5-15 [facility] Automated blood erythrocyte countOrdered By: Razia Maya on 03-09-2025 RBC (Bld) [#/Vol] 3.69 10*6/uL Low 4.6-6.2 [facility] Comment on above: Performed By: #### P SUIII #### [facility] [address] [place], [place], [address] Automated blood hematocrit ( percentage)Ordered By: Razia Maya on 03-09-2025 Hematocrit (Bld) [Volume fraction] 33.4 % Low 40-54 [facility] Comment on above: Performed By: #### P SUIII #### [facility] [address] [place], [address] Automated lymphocyte count a s percentage of total leukocytesOrdered By: Razia Maya on 03-09-2025 Lymphocytes/100 WBC Auto (Unsp spec) 18.7 % Low 19-41 [facility] BUN/creatinine ratioOrdered By: Razia LuzFrancesco on 03-09-2025 Urea nitrogen/Creatinine [Mass ratio] 27.0 mg/mg High 10-20 [facility] Basic Metabolic Profile (BMP )on 03-09-2025 BUN/CRE 27.0 RATIO High - [facility] Comment on above: Performed By: #### P SUIII #### [facility] [address] [place], [address] GAP 11 Normal 5-15 [facility] Comment on above: Performed By: #### P SUIII #### [facility] [address] [place], [address] Potassium [Moles/Vol] 4.8 mmol/L Normal 3.3-5.1 [facility] Comment on above: Result Comment: Hemo lysis present, Results??could be affected. ?? Performed By: #### P SUIII #### [facility] [address] [place], [address] Basophil percentageOrdered B y: Razia Maya on 03-09-2025 Basophils/100 WBC (Bld) 0.9 % Normal 0-1 [facility] Comment on above: Performed By: #### P SUIII #### [facility] [address] [place], [address] CBC W/Diff, Automatedon 02-28-2024 Absolute Lymph 0.85 X10 3/uL Normal 0.83-4.51 [facility] Comment on above: Performed By: #### P SUIII #### [facility] [address] [place], [address] Absolute Neut 3.1 X10 3/uL Normal 2.0-7.7 [facility] Comment on above: Performed By: #### P SUIII #### [facility] [address] [place], [address] IG% 0.700 Normal 0.0-0.9 [facility] Comment on above: Result Comment: IG% - Immature Granulocytes (promyelocytes, myelocytes and metamyelocytes) > 1% indicates that a LEFT SHIFT is Present. Performed By: #### P SUIII #### [facility] [address] [place], [address] Lymphocytes/100 WBC (Bld) 18.7 % Low 19-41 [facility] Comment on above: Performed By: #### P SUIII #### [facility] [address] [place], [address] Nucleated RBC (Bld) [#/Vol] 0 10*3/uL Normal 0-5 [facility] Comment on above: Performed By: #### P SUIII #### [facility] [address] [place], [address] RDW SD 47.9 fl High 35.1-43.9 [facility] Comment on above: Performed By: #### P SUIII #### [facility] [address] [place], [address] Carbon dioxide, total [Moles /volume] in Central venous bloodOrdered By: Razia Maya on 03-09-2025 CO2 [Moles/Vol] 24.6 mmol/L Normal 21.0-32.0 [facility] Comment on above: Performed By: #### P SUIII #### [facility] [address] [place], [address] Chloride assayOrdered By: Gail Maya on 03-09-2025 Chloride [Moles/Vol] 105 mmol/L Normal 98-108 [facility] Comment on above: Performed By: #### P SUIII #### [facility] [address] [place], [address] Eosinophil percentageOrdered By: Razia Maya on 03-09-2025 Eosinophils/100 WBC (Bld) 2.9 % Normal 0-5 [facility] Comment on above: Performed By: #### P SUIII #### [facility] [address] [place], [place], [id number] Erythrocyte distribution wid th ratioOrdered By: Razia Maya on 03-09-2025 Erythrocyte distribution width (RBC) [Ratio] 14.7 % High 11.6-14.6 [facility] Comment on above: Performed By: #### P SUIII #### [facility] [address] [place], [address] Erythrocyte distribution wid th standard deviationOrdered By: Razia Maya on 03-09-2025 Erythrocyte distribution width (RBC) [Ratio] 47.9 fl High 35.1-43.9 [facility] Glomerular filtration rate ( GFR) estimation/1.73 sq m using serum, plasma, or whole bOrdered By: Razia Maya on 03-09-2025 GFR/1.73 sq M.predicted among non-blacks MDRD (S/P/Bld) [Vol rate/Area] 54 mL/min/{1.73_m2} Low >60 [facility] Comment on above: mL/min/1.73m2 CKD-EP I Creatinine Equation (2020) Result Comment: mL/m in/1.73m2 CKD-EPI Creatinine Equation (2020) Performed By: #### P SUIII #### [facility] [address] [place], [place], [id number] Hemoglobin measurementOrdere d By: Razia Maya on 03-09-2025 Hemoglobin (Bld) [Mass/Vol] 11.1 g/dL Low 13.0-16.5 [facility] Comment on above: Performed By: #### P SUIII #### [facility] [address] [place], [address] Immature granulocytes/100 WB C Auto (Bld)Ordered By: Razia Maya on 03-09-2025 Immature granulocytes/100 WBC (Bld) 0.700 % 0.0-0.9 [facility] Comment on above: IG% - Immature Granu locytes (promyelocytes, myelocytes and metamyelocytes) > 1% indicates that a LEFT SHIFT is Present. MCV (mean corpuscular volume ) determinationOrdered By: Razia Maya on 03-09-2025 MCV (RBC) [Entitic vol] 90.5 fL Normal 80-94 [facility] Comment on above: Performed By: #### P SUIII #### [facility] [address] [facility] [place], [address] Mean corpuscular hemoglobin (MCH) determinationOrdered By: Razia Maya on 03-09-2025 MCH (RBC) [Entitic mass] 30.1 pg Normal 27.0-32.0 [facility] Comment on above: Performed By: #### P SUIII #### [facility] [address] [place], [address] (249 Mean corpuscular hemoglobin concentration (MCHC) determinationOrdered By: Razia Maya on 03-09-2025 MCHC (RBC) [Mass/Vol] 33.2 g/dL Normal 32-36 [facility] Comment on above: Performed By: #### P SUIII #### [facility] [address] [place], [address] Mean platelet volume determi nationOrdered By: Razia Maya on 03-09-2025 Platelet mean volume (Bld) [Entitic vol] 10.1 fL Normal 6.2-12.0 [facility] Comment on above: Performed By: #### P SUIII #### [facility] [address] [place], [address] (984 Monocyte percentageOrdered B y: Razia Maya on 03-09-2025 Monocytes/100 WBC (Bld) 9.2 % Normal 0-10 [facility] Comment on above: Performed By: #### P SUIII #### [facility] [address] [place], [address] Neutrophil percentageOrdered By: Razia Maya on 03-09-2025 Neutrophils/100 WBC (Bld) 67.6 % Normal 47-70 [facility] Comment on above: Performed By: #### P SUIII #### [facility] [address] [place], [address] Nucleated red blood cell per centageOrdered By: Razia Maya on 03-09-2025 Nucleated RBC/100 WBC (Bld) [Ratio] 0 % 0-5 [facility] Phosphoruson 03-09-2025 Phosphate [Mass/Vol] 4.3 mg/dL Normal 2.7-4.5 [facility] Comment on above: Performed By: #### L 100.0100, L500.4050 #### [facility] [address] [place], [address] Platelet countOrdered By: Gail Maya on 03-09-2025 Platelets (Bld) [#/Vol] 145 10*3/uL Low 150-450 [facility] Comment on above: Performed By: #### P SUIII #### [facility] [address] [place], [address] Potassium measurement (mass/ volume)Ordered By: Razia Maya on 03-09-2025 Potassium (Unsp spec) [Mass/Vol] 4.8 mmol/L 3.3-5.1 [facility] Comment on above: Hemolysis present, R esults could be affected. Serum creatinine measurement (mass/volume)Ordered By: Razia Maya on 03-09-2025 Creatinine [Mass/Vol] 1.38 mg/dL High 0.70-1.20 [facility] Comment on above: Performed By: #### P SUIII #### [facility] [address] [place], [place], [id number] Serum glucose measurement (m ass/volume)Ordered By: Razia LuzFrancesco on 03-09-2025 Glucose [Mass/Vol] 109 mg/dL High 70-99 [facility] Comment on above: Performed By: #### P SUIII #### [facility] [address] [place], [address] (233 Serum or plasma calcium mariano urement (mass/volume)Ordered By: Razia LuzFrancesco on 03-09-2025 Calcium [Mass/Vol] 9.0 mg/dL Normal 7.6-11.0 [facility] Comment on above: Performed By: #### P SUIII #### [facility] [address] [place], [address] (290 Serum or plasma urea nitroge n measurement (mass/volume)Ordered By: Razia Francesco on 03-09-2025 Urea nitrogen [Mass/Vol] 37 mg/dL High 4-19 [facility] Comment on above: Performed By: #### P SUIII #### [facility] [address] [place], [address] Serum or plasma uric acid me asurement (mass/volume)Ordered By: Razia Maya on 03-09-2025 Urate [Mass/Vol] 8.3 mg/dL High 3.5-7.2 [facility] Comment on above: The drugs N-Acetylcy steine and Metamizole may falsely depress this assay. Sodium levelOrdered By: Razia Francesco on 03-09-2025 Sodium [Moles/Vol] 141 mmol/L Normal 133-145 [facility] Comment on above: Performed By: #### P SUIII #### [facility] [address] [place], [address] (225 Uric Acidon 03-09-2025 URIC 8.3 mg/dL High 3.5-7.2 [facility] Comment on above: Result Comment: The drugs N-Acetylcysteine and Metamizole may falsely depress this assay. Performed By: #### P SUIII #### [facility] [address] [place], [place], [address] White blood cell (WBC) count Ordered By: Razia Maya on 03-09-2025 WBC (Bld) [#/Vol] 4.6 10*3/uL Normal 4.4-11.0 [facility] Comment on above: Performed By: #### P SUIII #### [facility] [address] [place], [place], [address] 37on 01-18-2025 37 Increase the primido ne to 3 tabs twice a day. Give it a week. If no better or if you think I should go higher, send a message or call in a week from now. Normal [facility] Office Visiton 01-18-2025 Follow-up visit [id number] Kira Abbott 1950 M Date Provider Department Center 01/18/2025 [id number] [facility] NIKKO None Family History Family Status - Relation Status Age at Father Notes: heart problems Mother Notes: heart problem Level of Service:74524 [place] OFFICE/OUTPATIENT ESTABLISHED LOW MDM 20 MIN Reason for Visit and Comments: Follow-up [798133] Parkinson's Disease [385] Normal [facility] Progress Noteon 01-18-2025 Progress Note [facility] [address] [facility] [address] Dept: [phone] Dept Loc: [phone] Visit type: Established Patient Reason for Visit: Follow-up and Parkinson's Disease Assessment and Plan 1. Parkinson's disease with fluctuating manifestations, unspecified whether dyskinesia present (HCC) 2. Essential tremor Subjective HPI: He reports that he is getting worse. He is having more tremor and greater difficulty with walking. He reports that he had to have a cholecystectomy. He reports that he has tried increaseing the carb-levo without any improvement. He denies falls. He denies trouble swallowing. He does feel weak and wobbly when standing for a long time. He has not been able to go to PD exercise classes because of his health. Since the cy, he has had joint pain in the fingers and toes. REVIEW OF SYSTEMS: Review of Systems Constitutional: [...] pain and genital sores. Musculoskeletal: Positive for arthralgias and back pain. Negative for neck pain. Skin: Negative for color change. [...] reaction(s): myalgia Sulfa Antibiotics Current Outpatient Medications: alpha tocopherol (Vitamin E) 1000 units capsule, Take 1,000 Units by mouth daily., Disp: , Rfl: amLODIPine (Norvasc) 5 MG tablet, Take by mouth daily., Disp: , Rfl: carbidopa-levodopa (Sinemet) 25-100 MG tablet, Take 1 tablet by mouth every 8 hours as needed (tremors). With the carb-levo CR 50/200, Disp: 270 tablet, Rfl: 3 carbidopa-levodopa CR (Sinemet CR) 50-200 MG ER tablet, Take 1 tablet by mouth 3 times daily. Do not crush or chew., Disp: 270 tablet, Rfl: 3 cholecalciferol (Vitamin D-3) 50 MCG (2000 UT) capsule, Take by mouth., Disp: , Rfl: cloNIDine (Catapres) 0.1 MG tablet, Take 0.1 mg by mouth every 8 hours as needed., Disp: , Rfl: Cyanocobalamin (VITAMIN B 12 PO), Take by mouth., Disp: , Rfl: Ferrous Sulfate (SLOW FE PO), Take by mouth., Disp: , Rfl: hydrALAZINE (Apresoline) 25 MG tablet, Take 25 mg by mouth 4 times daily., Disp: , Rfl: hydroCHLOROthiazide (Microzide) 12.5 MG capsule, Take 12.5 mg by mouth daily. Takes 1 tab every other day., Disp: , Rfl: magnesium gluconate 250 MG tablet, 250 mg., Disp: , Rfl: nebivolol (Bystolic) 10 MG tablet, Take 10 mg by mouth daily., Disp: , Rfl: omeprazole (PriLOSEC) [address] capsule, Take 40 mg by mouth daily., Disp: , Rfl: pramipexole (Mirapex) 0.25 MG tablet, Take 1 tablet (0.25 mg) by mouth Nightly., Disp: 90 tablet, Rfl: 3 primidone (Mysoline) 50 MG tablet, Take 2 tabs po QAM and 3 tabs po QPM, Disp: 450 tablet, Rfl: 3 betamethasone, augmented, (Diprolene AF) 0.05 % cream, APPLY TO THE AREAS OF RASH ON THE LEGS DAILY NEEDED (Patient not taking: Reported on 01/18/2025), Disp: , Rfl: hydrALAZINE (Apresoline) 50 MG tablet, Take by mouth., Disp: , Rfl: magnesium oxide (Mag-Ox) 400 MG tablet, Take 250 mg by mouth daily., Disp: , Rfl: Past Medical History: Diagnosis Date Back pain Cancer (CMS/HCC) (HCC) HL (hearing loss) Hypertension Lumbar stenosis Parkinson's disease (HCC) Sleep apnea Testicular cancer (HCC) Testicular carcinoma, right (HCC) Tremor Social History Tobacco Use Smoking status: Never Smokeless tobacco: Never Substance Use Topics Alcohol use: Never Past Surgical History: Procedure Laterality Date GALLBLADDER SURGERY 11/24/2024 HERNIA REPAIR 01/07/2023 OTHER SURGICAL HISTORY back injections TONSILLECTOMY (HISTORICAL) TUMOR REMOVAL VASCULAR SURGERY No family history on file. Objective Vitals: BP (!) 182/94 (BP Location: Right arm, Patient Position: Sitting, BP Cuff Size: Adult) Pulse 63 Ht 5' 8.5 (1.74 m) Wt 220 lb 9.6 oz (100 kg) BMI 33.05 kg/m? General Appearance: Patient is (more content not included)... Normal [facility] Normal . [facility] Comment on above: Order Comment: LAV P [id number] Result Comment: Test Ordered: [id number] Metanephrines, Frac., Pl. Free Test(s) 072372-Sskgnrppaerivjs, Pl; 296896-Ncwhiwbidocp, Pl was developed and its performance characteristics determined by [facility]. It has not been cleared or approved by the Food and Drug Administration. Normetanephrine, Pl 28.5 pg/mL Reference Range: 0.0-285.2 Metanephrine, Pl <25.0 pg/mL Reference Range: 0.0-88.0 Performed at: [facility] [address] [id number] Treasury Director: Federico El MD, Phone: [phone] Performed at: [facility] [address] [id number] Treasury Director: Adolfo Jefferson PhD, Phone: [phone] Performed By: #### L 1000100, L500.9508 #### [facility] [address] [place], [address] CNOVon 12-13-2024 CNOV Office Visit (JUNI ) CAROLYN ABBOTT ([id number]) 1950 [facility] Date Time Provider Department 12/13/24 9:45 AM MILTON BASILIO During your visit today, we recorded the following information about you: Pulse Blood pressure Weight Height 61/minute 174/90 96.3 kg 1.791 m Milton Basilio, 12/14/2024 5:14 AM Signed Referring Provider: No ref. provider found Date: December 13, 2024 Chief Complaint: Established Patient Follow-Up (9 month follow up) HISTORY OF PRESENT ILLNESS: Carolyn Abbott is a 74 year old male who presents for Established Patient Follow-Up (9 month follow up). Patient known to have aortic stenosis. Echocardiogram 2015 ejection fraction was 55%. Mild aortic stenosis noted. Echocardiogram in 2023 at peak gradient of 50 mg was noted across the aortic valve. Moderate severe aortic stenosis was noted. Patient had a heart catheterization 2020 nonobstructive coronary artery disease was appreciated Patient is also known to have Parkinson's. His activity is quite limited ALLERGIES Allergen Reactions Clindamycin Swelling Sulfa (Sulfonamide [...] diastolic dysfunction. Mild aortic stenosis. History of echocardiogram 04/01/2024 EF 72%. Moderate MR and stenosis. Moderate aortic stenosis. History of prostate cancer 1980 Diagnosed in mid , with some adenopathy in the abdomen History [...] degeneration PAST SURGICAL HISTORY Procedure Laterality Date REMOVAL GALLBLADDER 11/24/2024 REPAIR EPIGASTRIC HERNIA,REDUC 12/2022 ULTRASOUND GUIDANCE FOR [...] Not specified Marital Status: MEDICATIONS: Current Outpatient Medicatio (more content not included)... Normal [facility] ECG COMPLETEon 12-13-2024 ECG COMPLETE Ventricular Rate : 6 1 BPM Atrial Rate : 61 BPM P-R Interval : 222 ms QRS Duration : 90 ms Q-T Interval : 446 ms QTC Calculation(Bazett) : 448 ms Calculated P [place] : 4 degrees Calculated R [place] : 22 degrees Calculated T [place] : 3 degrees Sinus rhythm with 1st degree AV block Confirmed by MILTON BASILIO DO ([id number]) on 12/16/2024 9:59:01 PM NAME : CAROLYN ABBOTT PID : [id number] : 1950 Gender : Male Race : ORD : [id number] Procedure Date : Dec 13 2024 09:54:25 Edit Date : Apr 18 2025 21:59:01 Diagnosis: Sinus rhythm with 1st degree AV block Confirmed by MILTON BASILIO DO ([id number]) on 12/16/2024 9:59:01 PM Test Reason : HCS Location : 2 : [facility]PC[facility] Overread By : MILTON BASILIO DO Edited By : MILTON BASILIO DO Referred By : , Acquired by : [id number], [facility] Surgery Visit Reporton 12-12 Surgery Visit Report [facility] [address] [place] [address] OFFICE VISIT Date of Service: 12/07/24 MR#: [id number] Acct: [id number] Name: CAROLYN ABBOTT Rep #: [id number] : 1950 Provider: AVERY clinton Age/Sex: 74/M Location: [facility] Status: Signed Intake Vital Signs 11/24/24 09:02 Height 5 ft 10 in Intake Visit Reasons: GALLBLADDER 3 Chief Complaint: gallbladder Allergies clindamycin Allergy (Verified 12/07/24 13:55) Swelling Sulfa (Sulfonamide Antibiotics) Allergy (Verified 12/07/24 13:55) Unknown, A CHILD allopurinol Adverse Reaction (Intermediate, Verified 11/24/24 09:13) Possible cause of rash on legs: went away after stopping simvastatin Adverse Reaction (Verified 11/24/24 09:13) myalgia Medications ???Medication ???Instructions ???Recorded ???Confirmed ???Type cholecalciferol (vitamin D3) 50 50 mcg PO DAILY 07/05/21 12/07/24 History mcg (2,000 unit) capsule carbidopa 25 mg-levodopa 100 mg 1 tab PO TID PRN TREMORS 09/27/24 12/07/24 History tablet clonidine HCl 0.1 mg tablet 0.1 mg PO Q8H PRN hypertensive 12/07/24 History emergency ferrous sulfate 325 mg (65 mg 325 mg PO BID 09/27/24 12/07/24 Hi story iron) tablet hydrochlorothiazide 12.5 mg tablet 12.5 mg PO QDAY 09/27/24 5 History magnesium 250 mg tablet 250 mg PO BID 09/27/24 12/07/24 Hi story mecobalamin (vitamin B12) 5,000 1,000 mcg PO QDAY 09/27/24 5 History mcg chewable tablet pramipexole 0.25 mg tablet 0.25 mg PO QHS restless legs 09/2712/07/24 History primidone 50 mg tablet 100 mg PO QAM 09/27/24 12/07/24 Hi story primidone 50 mg tablet 150 mg PO QHS 09/27/24 12/07/24 Hi story amlodipine 5 mg tablet 5 mg PO QHS 11/23/24 12/07/24 Hist ory omeprazole 40 mg capsule,delayed 40 mg PO QDAY #30 caps 11/25/24 Rx release ascorbic acid (vitamin C) 500 mg 1,000 mg PO BID 12/07/24 12/07/24 History capsule carbidopa ER 50 mg-levodopa 200 mg 1 tab PO TID 12/07/24 12/07/24 H istory tablet,extended release hydralazine 25 mg tablet 25 mg PO Q6 12/07/24 12/07/24 Hist ory nebivolol 10 mg tablet 10 mg PO QDAY 12/07/24 12/07/24 Hi story Have you fallen in the past year?: No Subjective Details: Patient is a 74 y/o M I am following s/p Robotic-assisted laparoscopic cholecystectomy by Dr. Boss on 11/24/24. Patient tolerated the procedure well. He notes intermittent nausea especially in the mornings. He denies any incisional pain, vomiting or fever. He notes appetite and bowel habits have returned to normal. He denies any concerns with his incision sites. Pathology demonstrated cholelithiasis, cholesterolosis. Benign pericystic lymph node. Objective Details: Abdomen- soft, nontender. Incisions c/d/i. No erythema or infection noted. Coding Level of Care Code Global Post Op Diagnoses S/P laparoscopic cholecystectomy Z90.49 [facility] Medical History Wears hearing aid History of renal disease Anemia Sleep apnea Gallstones Wears glasses Wears dentures Cancer Low iron Restless legs Back pain Dietary restriction Non-smoker CPAP (continuous positive airway pressure) dependence Leg cramps History of pain when walking History of edema History of echocardiogram History of stress test Cardiology follow-up encounter Hx of undescended testicle Varicose veins of both lower extremities Elevated blood pressure reading in office with white coat syndrome, without diagnosis of hypertension Uncontrolled hypertension Wears hearing aid in both ears Cellulitis of left lower extremity without foot Nonobstructive atherosclerosis of coronary artery History of non-ST elevation myocardial infarction (NSTEMI) (11/26/20) Hyperlipidemia CKD (chronic kidney disease) Obesity Essential (primary) hypertension Testicular malignancy Nonrheumatic aortic (valve) stenosis Parkinsons disease Tremor, essential Gout Surgical History History of esophagogastroduodenoscopy (EGD) History of cardiac catheterization S/P hernia repair History of colonoscopy History of lymph node excision History of left heart catheterization (01/21/21) History of surgical removal of testicle History of tonsillectomy Family History Father CAD (coronary artery disease) Sudden cardiac , Onset Age: 59 Myocardial infarction, Onset Age: 59 Hypertension Mother Heart disease Hypertension Brother Sudden cardiac , Onset Age: 68 Social History household members: spouse current occupational stat (more content not included)... Normal [facility] Absolute lymphocyte countOrd ered By: Razia Maya on 12-02-2024 Lymphocytes Auto (Unsp spec) [#/Vol] 0.66 10*3/uL Low 0.83-4.51 [facility] Absolute neutrophil countOrd ered By: Razia Maya on 12-02-2024 Neutrophils (Bld) [#/Vol] 3.5 10*3/uL 2.0-7.7 [facility] Anion gap in Serum or Plasma Ordered By: Razia Maya on 12-02-2024 Anion gap [Moles/Vol] 12 mmol/L 5-15 [facility] Automated lymphocyte count a s percentage of total leukocytesOrdered By: Razia Maya on 12-02-2024 Lymphocytes/100 WBC Auto (Unsp spec) 13.7 % Low 19-41 [facility] BUN/creatinine ratioOrdered By: Razia Maya on 12-02-2024 Urea nitrogen/Creatinine [Mass ratio] 27.1 mg/mg High 10-20 [facility] Basic Metabolic Profile (BMP )on 12-02-2024 BUN/CRE 27.1 RATIO High -20 [facility] Comment on above: Performed By: #### L 100.0100, L500.4050 #### [facility] [address] [place], [address] Calcium [Mass/Vol] 8.9 mg/dL Normal 7.6-11.0 [facility] Comment on above: Performed By: #### L 100.0100, L500.4050 #### [facility] [address] [place], [address] Chloride [Moles/Vol] 105 mmol/L Normal 98-108 [facility] Comment on above: Performed By: #### L 100.0100, L500.4050 #### [facility] [address] [place], [address] CO2 [Moles/Vol] 22.8 mmol/L Normal 21.0-32.0 [facility] Comment on above: Performed By: #### L 100.0100, L500.4050 #### [facility] [address] [place], [address] Creatinine [Mass/Vol] 1.26 mg/dL High 0.70-1.20 [facility] Comment on above: Performed By: #### L 100.0100, L500.4050 #### [facility] [address] [place], [address] GAP 12 Normal 5-15 [facility] Comment on above: Performed By: #### L 100.0100, L500.4050 #### [facility] [address] [place], [address] GFR/1.73 sq M.predicted among non-blacks MDRD (S/P/Bld) [Vol rate/Area] 60 mL/min/{1.73_m2} Normal >60 [facility] Comment on above: Result Comment: mL/m in/1.73m2 CKD-EPI Creatinine Equation (2020) Performed By: #### L 100.0100, L500.4050 #### [facility] [address] [place], [address] Glucose [Mass/Vol] 125 mg/dL High 70-99 [facility] Comment on above: Performed By: #### L 100.0100, L500.4050 #### [facility] [address] [place], [address] Potassium [Moles/Vol] 4.3 mmol/L Normal 3.3-5.1 [facility] Comment on above: Performed By: #### L 100.0100, L500.4050 #### [facility] [address] [place], [address] Sodium [Moles/Vol] 139 mmol/L Normal 133-145 [facility] Comment on above: Performed By: #### L 100.0100, L500.4050 #### [facility] [address] [place], [address] Urea nitrogen [Mass/Vol] 34 mg/dL High 4-19 [facility] Comment on above: Performed By: #### L 100.0100, L500.4050 #### [facility] [address] [place], [address] Basophil percentageOrdered B y: Razia Maya on 12-02-2024 Basophils/100 WBC (Bld) 0.6 % 0-1 [facility] CBC W/Diff, Automatedon Absolute Lymph 0.66 X10 3/uL Low 0.83-4.51 [facility] Comment on above: Performed By: #### L 100.0100, L500.4050 #### [facility] [address] [place], [address] Absolute Neut 3.5 X10 3/uL Normal 2.0-7.7 [facility] Comment on above: Performed By: #### L 100.0100, L500.4050 #### [facility] [address] [place], [address] Basophils/100 WBC (Bld) 0.6 % Normal 0-1 [facility] Comment on above: Performed By: #### L 100.0100, L500.4050 #### [facility] [address] [place], [address] Eosinophils/100 WBC (Bld) 3.7 % Normal 0-5 [facility] Comment on above: Performed By: #### L 100.0100, L500.4050 #### [facility] [address] [place], [address] Erythrocyte distribution width (RBC) [Ratio] 15.7 % High 11.6-14.6 [facility] Comment on above: Performed By: #### L 100.0100, L500.4050 #### [facility] [address] [place], [address] Hematocrit (Bld) [Volume fraction] 26.4 % Low 40-54 [facility] Comment on above: Performed By: #### L 100.0100, L500.4050 #### [facility] [address] [place], [address] Hemoglobin (Bld) [Mass/Vol] 8.8 g/dL Low 13.0-16.5 [facility] Comment on above: Performed By: #### L 100.0100, L500.4050 #### [facility] [address] [place], [address] IG% 0.800 Normal 0.0-0.9 [facility] Comment on above: Result Comment: IG% - Immature Granulocytes (promyelocytes, myelocytes and metamyelocytes) > 1% indicates that a LEFT SHIFT is Present. Performed By: #### L 100.0100, L500.4050 #### [facility] [address] [place], [address] Lymphocytes/100 WBC (Bld) 13.7 % Low 19-41 [facility] Comment on above: Performed By: #### L 100.0100, L500.4050 #### [facility] [address] [place], [address] MCH (RBC) [Entitic mass] 29.7 pg Normal 27.0-32.0 [facility] Comment on above: Performed By: #### L 100.0100, L500.4050 #### [facility] [address] [place], [address] MCHC (RBC) [Mass/Vol] 33.3 g/dL Normal 32-36 [facility] Comment on above: Performed By: #### L 100.0100, L500.4050 #### [facility] [address] [place], [address] MCV (RBC) [Entitic vol] 89.2 fL Normal 80-94 [facility] Comment on above: Performed By: #### L 100.0100, L500.4050 #### [facility] [address] [place], [address] Monocytes/100 WBC (Bld) 7.9 % Normal 0-10 [facility] Comment on above: Performed By: #### L 100.0100, L500.4050 #### [facility] [address] [place], [address] Neutrophils/100 WBC (Bld) 73.3 % High 47-70 [facility] Comment on above: Performed By: #### L 100.0100, L500.4050 #### [facility] [address] [place], [address] Nucleated RBC (Bld) [#/Vol] 0 10*3/uL Normal 0-5 [facility] Comment on above: Performed By: #### L 100.0100, L500.4050 #### [facility] [address] [place], [address] Platelet mean volume (Bld) [Entitic vol] 10.2 fL Normal 6.2-12.0 [facility] Comment on above: Performed By: #### L 100.0100, L500.4050 #### [facility] [address] [place], [address] Platelets (Bld) [#/Vol] 166 10*3/uL Normal 150-450 [facility] Comment on above: Performed By: #### L 100.0100, L500.4050 #### [facility] [address] [place], [address] RBC (Bld) [#/Vol] 2.96 10*6/uL Low 4.6-6.2 [facility] Comment on above: Performed By: #### L 100.0100, L500.4050 #### [facility] [address] [place], [address] RDW SD 50.1 fl High 35.1-43.9 [facility] Comment on above: Performed By: #### L 100.0100, L500.4050 #### [facility] [address] [place], [address] WBC (Bld) [#/Vol] 4.8 10*3/uL Normal 4.4-11.0 [facility] Comment on above: Performed By: #### L 100.0100, L500.4050 #### [facility] [address] [place], [address] Carbon dioxide, total [Moles /volume] in Central venous bloodOrdered By: Razia Maya on 12-02-2024 CO2 [Moles/Vol] 22.8 mmol/L 21.0-32.0 [facility] Chloride assayOrdered By: Gail Maya on 12-02-2024 Chloride [Moles/Vol] 105 mmol/L 98-108 [facility] Eosinophil percentageOrdered By: Razia Maya on 12-02-2024 Eosinophils/100 WBC (Bld) 3.7 % 0-5 [facility] Erythrocyte distribution wid th (RBC) [Ratio]Ordered By: Razia Maya on 12-02-2024 Erythrocyte distribution width (RBC) [Entitic vol] 50.1 fL High 35.1-43.9 [facility] Erythrocyte distribution wid th ratioOrdered By: Razia Maya on 12-02-2024 Erythrocyte distribution width (RBC) [Ratio] 15.7 % High 11.6-14.6 [facility] Erythrocyte distribution wid th standard deviationOrdered By: Razia Maya on 12-02-2024 Erythrocyte distribution width (RBC) [Ratio] 50.1 fl High 35.1-43.9 [facility] GFR/1.73 sq M.predicted zeian g non-blacks MDRD (S/P/Bld) [Vol rate/Area]Ordered By: Razia Maya on 12-02-2024 Estimated GFR (MDRD) Non-Af Amer 60 >60 [facility] Comment on above: mL/min/1.73m2 CKD-EP I Creatinine Equation (2020) Glomerular filtration rate ( GFR) estimation/1.73 sq m using serum, plasma, or whole bOrdered By: Razia Maya on 12-02-2024 GFR/1.73 sq M.predicted among non-blacks MDRD (S/P/Bld) [Vol rate/Area] 60 mL/min/{1.73_m2} >60 [facility] Comment on above: mL/min/1.73m2 CKD-EP I Creatinine Equation (2020) Hematocrit Auto (Bld) [Volum e fraction]Ordered By: Razia Maya on 12-02-2024 Hematocrit (Bld) [Volume fraction] 26.4 % Low 40-54 [facility] Hemoglobin measurementOrdere d By: Razia Maya on 12-02-2024 Hemoglobin (Bld) [Mass/Vol] 8.8 g/dL Low 13.0-16.5 [facility] Immature granulocytes/100 WB C Auto (Bld)Ordered By: Razia Maya on 12-02-2024 Immature granulocytes/100 WBC (Bld) 0.800 % 0.0-0.9 [facility] Comment on above: IG% - Immature Granu locytes (promyelocytes, myelocytes and metamyelocytes) > 1% indicates that a LEFT SHIFT is Present. L509.6001on 12-02-2024 CORTISOL 15.80 ug/dL Normal 6.02-18.40 [facility] Comment on above: Performed By: #### L 100.0100, L500.4050 #### [facility] Laboratory [address] [place], [address] Lymphocytes Auto (Unsp spec) [#/Vol]Ordered By: Razia Maya on 12-02-2024 Lymphocytes (Bld) [#/Vol] 0.66 10*3/uL Low 0.83-4.51 [facility] Lymphocytes/100 WBC Auto (Un sp spec)Ordered By: Razia Maya on 12-02-2024 Lymphocytes/100 WBC (Bld) 13.7 % Low 19-41 [facility] MCV (mean corpuscular volume ) determinationOrdered By: Razia Maya on 12-02-2024 MCV (RBC) [Entitic vol] 89.2 fL 80-94 [facility] Mean corpuscular hemoglobin (MCH) determinationOrdered By: Razia Maya on 12-02-2024 MCH (RBC) [Entitic mass] 29.7 pg 27.0-32.0 [facility] Mean corpuscular hemoglobin concentration (MCHC) determinationOrdered By: Razia Maya on 12-02-2024 MCHC (RBC) [Mass/Vol] 33.3 g/dL 32-36 [facility] Mean platelet volume determi nationOrdered By: Razia Maya on 12-02-2024 Platelet mean volume (Bld) [Entitic vol] 10.2 fL 6.2-12.0 [facility] Monocyte percentageOrdered B y: Razia Maya on 12-02-2024 Monocytes/100 WBC (Bld) 7.9 % 0-10 [facility] Neutrophil percentageOrdered By: Razia Maya on 12-02-2024 Neutrophils/100 WBC (Bld) 73.3 % High 47-70 [facility] No Panel InformationOrdered By: Razia Maya on 12-02-2024 Cortisol AM Sample 15.80 ug/dL 6.02-18.40 [facility] Miscellaneous Test COMMENT . [facility] Comment on above: Test Ordered: [id number] Metanephrines, Frac., Pl. FreeTest(s) 163455-Sgbekgibyftvitc, Pl; 946542-Gyrlsvulksgp, Plwas developed and its performance characteristicsdetermined by [employer]. It has not been cleared or approvedby the Food and Drug Administration.Normetanephrine, Pl 28.5 pg/mL Reference Range: 0.0-285.2Metanephrine, Pl <25.0 pg/mL Reference Range: 0.0-88.0Performed at: - [facility] [id number] Director: Federico El MD, Phone: [phone] at: - [address] [id number] Director: Adolfo Jefferson PhD, Phone: [phone] Nucleated red blood cell per centageOrdered By: Razia Maya on 12-02-2024 Nucleated RBC/100 WBC (Bld) [Ratio] 0 % 0-5 [facility] Phosphoruson 12-02-2024 Phosphate [Mass/Vol] 3.6 mg/dL Normal 2.7-4.5 [facility] Comment on above: Performed By: #### L 100.0100, L500.4050 #### [facility] Laboratory [facility] [place], [address] Platelet countOrdered By: Gail Maya on 12-02-2024 Platelets (Bld) [#/Vol] 166 10*3/uL 150-450 [facility] Potassium (Unsp spec) [Mass/ Vol]Ordered By: Razia Maya on 12-02-2024 Potassium [Moles/Vol] 4.3 mmol/L 3.3-5.1 [facility] Potassium measurement (mass/ volume)Ordered By: Razia Maya on 12-02-2024 Potassium (Unsp spec) [Mass/Vol] 4.3 mmol/L 3.3-5.1 [facility] RBC Auto (Bld) [#/Vol]Ordere d By: Razia Maya on 12-02-2024 RBC (Bld) [#/Vol] 2.96 10*6/uL Low 4.6-6.2 [facility] Serum creatinine measurement (mass/volume)Ordered By: Razia Maya on 12-02-2024 Creatinine [Mass/Vol] 1.26 mg/dL High 0.70-1.20 [facility] Serum glucose measurement (m ass/volume)Ordered By: Razia Maya on 12-02-2024 Glucose [Mass/Vol] 125 mg/dL High 70-99 [facility] Serum or plasma calcium mariano urement (mass/volume)Ordered By: Razia Maya on 12-02-2024 Calcium [Mass/Vol] 8.9 mg/dL 7.6-11.0 [facility] Serum or plasma urea nitroge n measurement (mass/volume)Ordered By: Razia Maya on 12-02-2024 Urea nitrogen [Mass/Vol] 34 mg/dL High 4-19 [facility] Serum phosphorus measurement Ordered By: Razia Maya on 12-02-2024 Phosphorus Level 3.6 mg/dL 2.7-4.5 [facility] Sodium levelOrdered By: Razia Maya on 12-02-2024 Sodium [Moles/Vol] 139 mmol/L 133-145 [facility] TSH DL <= 0.005 mIU/L QnOrde red By: Razia Maya on 12-02-2024 Thyroid Stimulating Hormone (TSH) 1.540 uIU/mL 0.300-4.20 0 [facility] TSH Qn 1.540 uIU/mL 0.300-4.20 0 [facility] Thyroid Stim Hormone (TSH)on 12-02-2024 TSH 1.540 uIU/mL Normal 0.300-4.20 0 [facility] Comment on above: Performed By: #### L 100.0100, L500.4050 #### [facility] Laboratory [address] [place], [address] White blood cell (WBC) count Ordered By: Razia Maya on 12-02-2024 WBC (Bld) [#/Vol] 4.8 10*3/uL 4.4-11.0 [facility] Absolute lymphocyte countOrd ered By: [facility] on 11-24-2024 Lymphocytes Auto (Unsp spec) [#/Vol] 0.87 10*3/uL 0.83-4.51 [facility] Absolute neutrophil countOrd ered By: [facility] on 11-24-2024 Neutrophils (Bld) [#/Vol] 4.0 10*3/uL 2.0-7.7 [facility] Automated lymphocyte count a s percentage of total leukocytesOrdered By: [facility] on 11-24-2024 Lymphocytes/100 WBC Auto (Unsp spec) 15.6 % Low 19-41 [facility] Basophil percentageOrdered B y: [facility] on 11-24-2024 Basophils/100 WBC (Bld) 0.5 % 0-1 [facility] Bilirubin directOrdered By: [facility] on 11-24-2024 Bilirubin.direct [Mass/Vol] 0.13 mg/dL 0.00-0.30 [facility] Bilirubin, totalOrdered By: Kathyrhina [facility]repenn [facility] on 11-24-2024 Bilirubin [Mass/Vol] 0.27 mg/dL 0.00-1.30 [facility] CBC W/Diff, Automatedon 10-30 Absolute Lymph 0.87 X10 3/uL Normal 0.83-4.51 [facility] Comment on above: Performed By: #### L 100.0100, L500.4050 #### [facility] Laboratory [address] [place], [address] Absolute Neut 4.0 X10 3/uL Normal 2.0-7.7 [facility] Comment on above: Performed By: #### L 100.0100, L500.4050 #### [facility] Laboratory [address] [place], [address] Basophils/100 WBC (Bld) 0.5 % Normal 0-1 [facility] Comment on above: Performed By: #### L 100.0100, L500.4050 #### [facility] Laboratory [address] [place], [address] Eosinophils/100 WBC (Bld) 2.9 % Normal 0-5 [facility] Comment on above: Performed By: #### L 100.0100, L500.4050 #### [facility] Laboratory [address] [place], [address] Erythrocyte distribution width (RBC) [Ratio] 14.8 % High 11.6-14.6 [facility] Comment on above: Performed By: #### L 100.0100, L500.4050 #### [facility] Laboratory [address] [place], [address] Hematocrit (Bld) [Volume fraction] 27.8 % Low 40-54 [facility] Comment on above: Performed By: #### L 100.0100, L500.4050 #### [facility] Laboratory [address] [place], [address] Hemoglobin (Bld) [Mass/Vol] 10.0 g/dL Low 13.0-16.5 [facility] Comment on above: Performed By: #### L 100.0100, L500.4050 #### [facility] Laboratory [address] [place], [address] IG% 0.900 Normal 0.0-0.9 [facility] Comment on above: Result Comment: IG% - Immature Granulocytes (promyelocytes, myelocytes and metamyelocytes) > 1% indicates that a LEFT SHIFT is Present. Performed By: #### L 100.0100, L500.4050 #### [facility] Laboratory [address] [place], [address] Lymphocytes/100 WBC (Bld) 15.6 % Low 19-41 [facility] Comment on above: Performed By: #### L 100.0100, L500.4050 #### [facility] Laboratory [address] [place], [address] MCH (RBC) [Entitic mass] 30.0 pg Normal 27.0-32.0 [facility] Comment on above: Performed By: #### L 100.0100, L500.4050 #### [facility] [address] [place], [address] MCHC (RBC) [Mass/Vol] 36.0 g/dL Normal 32-36 [facility] Comment on above: Performed By: #### L 100.0100, L500.4050 #### [facility] [address] [place], [address] MCV (RBC) [Entitic vol] 83.5 fL Normal 80-94 [facility] Comment on above: Performed By: #### L 100.0100, L500.4050 #### [facility] Laboratory [address] [place], [address] Monocytes/100 WBC (Bld) 7.9 % Normal 0-10 [facility] Comment on above: Performed By: #### L 100.0100, L500.4050 #### [facility] [address] [place], [address] Neutrophils/100 WBC (Bld) 72.2 % High 47-70 [facility] Comment on above: Performed By: #### L 100.0100, L500.4050 #### [facility] Laboratory [address] [place], [address] Nucleated RBC (Bld) [#/Vol] 0 10*3/uL Normal 0-5 [facility] Comment on above: Performed By: #### L 100.0100, L500.4050 #### [facility] Laboratory [address] [place], [address] Platelet mean volume (Bld) [Entitic vol] 10.4 fL Normal 6.2-12.0 [facility] Comment on above: Performed By: #### L 100.0100, L500.4050 #### [facility] Laboratory [address] [place], [address] Platelets (Bld) [#/Vol] 189 10*3/uL Normal 150-450 [facility] Comment on above: Performed By: #### L 100.0100, L500.4050 #### [facility] Laboratory [address] [place], [address] RBC (Bld) [#/Vol] 3.33 10*6/uL Low 4.6-6.2 [facility] Comment on above: Performed By: #### L 100.0100, L500.4050 #### [facility] Laboratory [address] [place], [address] RDW SD 43.9 fl Normal 35.1-43.9 [facility] Comment on above: Performed By: #### L 100.0100, L500.4050 #### [facility] Laboratory [address] [place], [address] WBC (Bld) [#/Vol] 5.6 10*3/uL Normal 4.4-11.0 [facility] Comment on above: Performed By: #### L 100.0100, L500.4050 #### [facility] Laboratory [address] [place], [address] Discharge Instructionon 03-2 Discharge Instruction [facility] Medical Records Department [address] [place] [address] Instructions for Home/Discharge Instructions 11/24/24 1254 MR#: [id number] Acct: [id number] Name: CAROLYN ABBOTT Rep #: [id number] : 1950 74 From: Kathy Boss MD PCP: Dr. Razia Maya, DO Status:REG [facility] Discharge Instructions Diet Discharge Diet: Light diet - advance as tolerated Activity Discharge Activity: May Not Drive (while taking narcotic pain medications.) May shower in (days): 1 Lifting Restrictions: no lifting >20 lbs x 2 wks, no strenuous exercise for 4 wks Dressing / Incision Call your doctor if your incision/area has: Continuous Slow Oozing, Sudden Increased Bleeding, Increased Pain/ Swelling, Increased Redness, Foul Smelling Discharge and Swelling at the incision site Call your doctor if you observe: Fever of 101 or Higher Remove Dressing in: 2 days Cleanse incision/area with: Soap Water Additional Dressing/Incision Instructions:: Steri-Strips will fall off in 7 to 10 days, if they do not fall off okay to remove after 10 days. Follow Up Care Please Follow Up With: Kathy Boss MD When: Call the office for a follow-up appointment 2 weeks; after 5 PM and on the weekends call [phone] with any concerns. Test Results: Test results from this visit will be discussed in further detail at your follow-up appointment, if applicable. Discharge Plan Admission Attending Provider: Kathy Boss Primary Care Provider: Razia Maya Instructions Print Language: Croatian Discharge Orders/Prescriptions Prescriptions: New hydrocodone-acetaminophen 5-325 mg tablet 1 tab PO Q6H PRN (Reason: pain) 3 Days Qty: 10 0RF Continued pramipexole 0.25 mg tablet 0.25 mg PO QHS primidone 50 mg tablet 100 mg PO QAM cholecalciferol (vitamin D3) 50 mcg (2,000 unit) capsule 50 mcg PO DAILY magnesium 250 mg tablet 250 mg PO BID ascorbic acid (vitamin C) 500 mg capsule 500 mg PO BID hydralazine 50 mg tablet 50 mg PO Q8H carbidopa-levodopa 25-100 mg tablet 1 tab PO TID PRN (Reason: TREMORS) clonidine HCl 0.1 mg tablet 0.1 mg PO Q8H PRN (Reason: hypertensive emergency) primidone 50 mg tablet 150 mg PO QHS Rx Instructions: Parkinson's, Tremor ferrous sulfate 325 mg (65 mg iron) tablet 325 mg PO BID mecobalamin (vitamin B12) 5,000 mcg tablet,chewable 1,000 mcg PO QDAY hffjbxhcr-fqwyrzff-rksswrqg ne 50-200-200 mg tablet 1 tab PO TID Patient Comments: TAKE 1 TABLET BY MOUTH THREE TIMES DAILY carvedilol 25 mg tablet 25 mg PO BID hydrochlorothiazide 12.5 mg tablet 12.5 mg PO QDAY sucralfate 1 gram tablet 1 g PO 4X/DAY Qty: 56 0RF Rx Instructions: Take 1 hour before meals and at bedtime amlodipine 5 mg tablet 5 mg PO QHS omeprazole 40 mg capsule,delayed release(DR/EC) 40 mg PO QDAY Qty: 30 0RF Other Ambulatory Orders: CBC-Complete Blood Cnt No Diff (Routine) Timeframe: [id number] Facility: [facility] - Location: Laboratory Ordered By: Dr. Kathy Boss Referrals / Follow Up: Razia Maya DO [Primary Care Provider] - Disposition Disposition (needs filled in before D/C Order can be placed): Home, Self Care 11/24/24 1257 Kathy Boss MD CC: Dr. Razia Maya DO Signed Normal [facility] Eosinophil percentageOrdered By: Kathy Boss on 11-24-2024 Eosinophils/100 WBC (Bld) 2.9 % 0-5 [facility] Erythrocyte distribution wid th ratioOrdered By: Kathy Boss on 11-24-2024 Erythrocyte distribution width (RBC) [Ratio] 14.8 % High 11.6-14.6 [facility] Erythrocyte distribution wid th standard deviationOrdered By: Kathy Boss on 11-24-2024 Erythrocyte distribution width (RBC) [Entitic vol] 43.9 fL 35.1-43.9 [facility] Erythrocyte distribution width (RBC) [Ratio] 43.9 fl 35.1-43.9 [facility] Hematocrit Auto (Bld) [Volum e fraction]Ordered By: Kathy Boss on 11-24-2024 Hematocrit (Bld) [Volume fraction] 27.8 % Low 40-54 [facility] Hemoglobin measurementOrdere d By: Kathy Boss on 11-24-2024 Hemoglobin (Bld) [Mass/Vol] 10.0 g/dL Low 13.0-16.5 [facility] Immature granulocytes/100 WB C Auto (Bld)Ordered By: Kathy Boss on 11-24-2024 Immature granulocytes/100 WBC (Bld) 0.900 % 0.0-0.9 [facility] Comment on above: IG% - Immature Granu locytes (promyelocytes, myelocytes and metamyelocytes) > 1% indicates that a LEFT SHIFT is Present. Laboratory - Chemistry and C hemistry - challengeOrdered By: Kathy Boss on 11-24-2024 AST [Catalytic activity/Vol] 14 U/L <38 [facility] Liver Profileon 11-24-2024 Albumin [Mass/Vol] 4.1 g/dL Normal 3.4-4.8 [facility] Comment on above: Performed By: #### L 100.0100, L500.4050 #### [facility] Laboratory [address] [facility] [place], [address] ALK PHOS 107 U/L Normal 40-129 [facility] Comment on above: Performed By: #### L 100.0100, L500.4050 #### [facility] Laboratory [address] [facility] [place], [address] ALT [Catalytic activity/Vol] U/L Normal <=46 [facility] Comment on above: Performed By: #### L 100.0100, L500.4050 #### [facility] Laboratory [address] [place], [address] AST [Catalytic activity/Vol] 14 U/L Normal <=37 [facility] Comment on above: Performed By: #### L 100.0100, L500.4050 #### [facility] Laboratory [address] [facility] [place], [address] Bilirubin [Mass/Vol] 0.27 mg/dL Normal 0.00-1.30 [facility] Comment on above: Performed By: #### L 100.0100, L500.4050 #### [facility] Laboratory [address] [place], [address] Bilirubin.direct [Mass/Vol] 0.13 mg/dL Normal 0.00-0.30 [facility] Comment on above: Performed By: #### L 100.0100, L500.4050 #### [facility] Laboratory [address] [facility] [place], [address] Globulin (S) [Mass/Vol] 2.2 g/dL Normal 2.2-4.2 [facility] Comment on above: Performed By: #### L 100.0100, L500.4050 #### [facility] Laboratory [address] [facility] [place], [address] T PROT 6.3 g/dL Normal 5.9-8.4 [facility] Comment on above: Performed By: #### L 100.0100, L500.4050 #### [facility] Laboratory [address] [place], [address] Lymphocytes Auto (Unsp spec) [#/Vol]Ordered By: Kathy Boss on 11-24-2024 Lymphocytes (Bld) [#/Vol] 0.87 10*3/uL 0.83-4.51 [facility] Lymphocytes/100 WBC Auto (Un sp spec)Ordered By: [facility] 11-24-2024 Lymphocytes/100 WBC (Bld) 15.6 % Low 19-41 [facility] MCV (mean corpuscular volume ) determinationOrdered By: Kathy [facility] on 11-24-2024 MCV (RBC) [Entitic vol] 83.5 fL 80-94 [facility] MR/POSTOP.ANEon 11-24-2024 MR/POSTOP.ANE [facility] Medical Records Department [address] [place] [address] Anesthesia Postop Eval I 11/24/24 1308 MR#: [id number] Acct: [id number] Name: CAROLYN ABBOTT Rep #: [id number] : 1950 74 From: Daylin Dawn SCUTCHER TENDER PCP: Dr. Razia Maya, DO Status:[facility] Y Race: C Location: [place] [address] Anesthesia: Postop Eval I Current Vital Signs Temperature: 97 F Pulse Rate: 58 Blood Pressure: 156/78 Respiratory Rate: 18 Pulse Ox: 100 Oxygen Delivery Method: Simple Mask Oxygen Flow Rate (L/min): 6 Assessment Airway patent: Yes Spontaneous unlabored respirations: Yes Mental status: Awake and Calm nausea: No Vomiting: No Anesthesia Complication: No Fluid Hydration Crystalloid volume administer (ml): 1,200 Total IV fluid infused: 1,200 Progress Note Anesthesia document: Postop Eval 1 completed: Yes 11/24/24 1310 Date Daylin Dawn SCUTCHER TENDER Cosigner Signature: Date CC: Signed Normal [facility] MR/[id number] 11-24-2024 /[facility] Medical Records Department [address] [place] [address] Anesthesia Postop Eval II 11/24/24 2248 MR#: [id number] Acct: [id number] Name: CAROLYN ABBOTT PONCE Rep #: [id number] : 1950 74 From: Moses Espinoza MD PCP: Dr. Razia Maya, DO Status:[facility] Y Race: C Location: [facility] Anesthesia Postop Eval I Sum Postop Eval Completion status Anesthesia document: Postop Eval 1 completed: Yes Anesthesia Postop Eval I Summary Anesthesia Postop Eval I Summary: Anesthesia Postop Eval I: Assessment Summary Airway patent Yes 11/24/24 13:10 SCUTCHER TENDER.CORRINAOBCameron Spontaneous unlabored Yes 11/24/24 13:10 SCUTCHER TENDER.SKOBY respirations Mental status Awake,Calm 11/24/24 13:10 SCUTCHER TENDER.SKOBY nausea No 11/24/24 13:10 SCUTCHER TENDER.SKOBY Vomiting No 11/24/24 13:10 SCUTCHER TENDER.SKOBY Anesthesia Postop Eval I: Fluid Summary Crystalloid volume administer 1,200 11/24/24 13:10 SCUTCHER TENDER.MAURA (ml) Colloids volume administered ( ml) Blood Product volume administered (ml) Total IV fluid infused 1,200 11/24/24 13:10 SCUTCHER TENDER.MAURA Anesthesia Postop Eval I: Summary Notes Anesthesia Complication No 11/24/24 13:10 SCUTCHER TENDER.CORRINAOBCameron Anesthesia Complication Comment: Post-operative progress note Anesthesia: Postop Eval II Evaluation Mental status: Awake and Calm Pain Level: 1 nausea: No Vomiting: No Complications Anesthesia Complication: No 11/24/24 2248 Date Moses Varma Signature: Date CC: Signed Normal [facility] Mean corpuscular hemoglobin (MCH) determinationOrdered By: Kathy Boss on 11-24-2024 MCH (RBC) [Entitic mass] 30.0 pg 27.0-32.0 [facility] Mean corpuscular hemoglobin concentration (MCHC) determinationOrdered By: Kathy Boss on 11-24-2024 MCHC (RBC) [Mass/Vol] 36.0 g/dL 32-36 [facility] Mean platelet volume determi nationOrdered By: Kathyrhina Boss on 11-24-2024 Platelet mean volume (Bld) [Entitic vol] 10.4 fL 6.2-12.0 [facility] Monocyte percentageOrdered B y: Kathy Boss on 11-24-2024 Monocytes/100 WBC (Bld) 7.9 % 0-10 [facility] Neutrophil percentageOrdered By: Kathy Boss on 11-24-2024 Neutrophils/100 WBC (Bld) 72.2 % High 47-70 [facility] Nucleated red blood cell per centageOrdered By: Kathy Boss on 11-24-2024 Nucleated RBC/100 WBC (Bld) [Ratio] 0 % 0-5 [facility] Operative Reporton Operative Report [facility] Medical Records Department [address] [place] [address] Operative Report 11/24/24 1246 MR#: [id number] Acct: [id number] Name: CAROLYN ABBOTT Rep #: [id number] : 1950 74 From: Kathy Boss MD PCP: Dr. Razia Maya, DO Status:DEP [facility] Location: [facility] [place] Operative Report (Standard) Operative Information Date of Procedure: 11/24/24 Pre-Operative Diagnosis: Right upper quadrant pain, cholelithiasis Post-Operative Diagnosis: Same, acute on chronic cholecystitis Surgery/Procedure Performed: Robotic cholecystectomy zoogler: Yes [employer] Vice President: Zac Woodson Tasks completed by welder first class: Opening closing Type of Anesthesia: General/Supplemental RN Documented Start/Stop Times: Operation Date: 11/24/24 10:00 Case Time Into Pre-Op 11/24/24 08:22 Out of Pre-Op 11/24/24 10:28 Anesthesia Start 11/24/24 10:30 Into Room 11/24/24 10:30 Procedure Start 11/24/24 10:55 Procedure End 11/24/24 12:49 Anesthesia End 11/24/24 12:55 Out of Room 11/24/24 12:55 Into Recovery 11/24/24 13:00 Out of Recovery 11/24/24 14:08 Into Phase II Recovery 11/24/24 14:09 Out of Phase II 11/24/24 15:47 Procedure Start Time: 10:55 Procedure Stop Time: 12:49 Select all DRAINS/GRAFTS/IMPLANTS that apply: None Special Medications: Ancef 2 g IV x 1 Estimated Blood Loss: 30 cc Specimen collected: Yes Description of specimen(s) removed: Gallbladder Description of surgery: Indications: this is a 74 year-old male who developed abdominal pain/nausea/vomiting and on workup was found to have right upper quadrant pain, cholelithiasis, with a normal common bile duct. Laparoscopic cholecystectomy was elected. Description procedure: The patient was placed on operating table in supine position. A timeout was completed verifying correct patient, procedure, site, position and special equipment prior to beginning procedure. General Anesthesia was induced. The abdomen was prepped and draped in usual sterile fashion. An incision was made in the natural skin line below the umbilicus. The fascia was elevated and incised. The peritoneum was elevated and incised. Entry into the peritoneum was confirmed visually and no bowel was noted in the vicinity of the incision. Marc trocar was placed. The abdomen was insufflated with carbon dioxide to a pressure of 12-15 mmHg. Patient tolerated insufflation well. The laparoscope was then inserted and abdomen inspected. No injuries from initial trocar placement were noted. Additional trochars were then inserted in the following locations 8 mm trocar left upper quadrant and 2 more 8 mm trochars in right lower quadrant and left lower quadrant. The abdomen was inspected there is noted to be adhesions in the right upper quadrant with omentum as well as to the previously placed mesh at the umbilicus to the omentum. The table is placed in reverse Trendelenburg position with the right side up. Robot was docked. The dome of the gallbladder was grasped with atraumatic grasper passed through the lateral port and retracted over the dome of the liver. Adhesions from the omentum to the abdominal wall were taken down with cautery. Infundibulum was then grasped with atraumatic grasper through the midclavicular port and retracted to the right lower quadrant. Artery was found to be on top of and running parallel with the cystic duct. The peritoneum overlying the gallbladder infundibulum was then incised and cystic duct and artery identified and circumferentially dissected. ICG was used to visualize the cystic duct. The cystic duct and artery were then doubly clipped and divided close to the gallbladder. The gallbladder then dissected from its peritoneal attachments by electrocautery. gallbladder was noted to be partially intrahepatic, acutely inflamed. Hemostasis was checked and the gallbladder was removed using the endoscopic retrieval bag through the umbilical port. The gallbladder is passed off table as specimen. The gallbladder fossa was irrigated with saline and hemostasis obtained with electrocautery. Leticia was also placed in the gallbladder fossa. There is no evidence of bleeding from the gallbladder fossa or cystic artery leakage of bile from the cystic duct stump. Secondary trochars removed under direct vision. No bleeding was noted the trocar sites. The laparoscope was withdrawn and umbilical trocar removed. The abdomen was allowed to collapse. The fascia of the 12 mm trocar was closed with a [id number] 0 Vicryl suture. The skin was closed with sutures of 4-0 Monocryl and Steri-Strips. The patient was extubated. The patient tolerated procedure well and was taken to the postanesthesia care unit in stable condition. Surgical Findings: See operative report Complications Complications: No 11/24/24 1613 Cosigner Signature (if ap (more content not included)... Normal [facility] Platelet countOrdered By: Yogesh Boss on 11-24-2024 Platelets (Bld) [#/Vol] 189 10*3/uL 150-450 [facility] RBC Auto (Bld) [#/Vol]Ordere d By: Kathy Boss on 11-24-2024 RBC (Bld) [#/Vol] 3.33 10*6/uL Low 4.6-6.2 [facility] Serum globulin measurementOr dered By: Kathy Boss on 11-24-2024 Globulin (S) [Mass/Vol] 2.2 g/dL 2.2-4.2 [facility] Serum or plasma alanine ahuja otransferase (ALT) measurementOrdered By: Kathy Boss on 11-24-2024 ALT [Catalytic activity/Vol] U/L <47 [facility] Serum or plasma albumin mariano urement (mass/volume)Ordered By: Kathy Boss on 11-24-2024 Albumin [Mass/Vol] 4.1 g/dL 3.4-4.8 [facility] Serum or plasma alkaline roula sphatase measurementOrdered By: Kathyrhina Boss on 11-24-2024 ALP [Catalytic activity/Vol] 107 U/L 40-129 [facility] Surgery Specimen Level IIIon 11-24-2024 Surgery Specimen Level III Patient Age/Sex Location Account Attending Physician CAROLYN ABBOTT 74/M [facility] [place] [facility] [id number] Dr. Kathy Boss MD Specimen: [id number] Received: 11/24/24 Status: NOEL Dunn Num: [id number] Spec Type: PEREZ Forman Dr: Dr. Kathy Boss MD HEADER OPERATION: Robotic cholecystectomy PRE-OP DIAGNOSIS: GERD, gallstones TISSUE SUBMITTED: A-Gallbladder MICROSCOPIC DIAGNOSIS A, GALLBLADDER, CHOLECYSTECTOMY: -CHOLELITHIASIS, CHOLESTEROLOSIS. -BENIGN PERICYSTIC LYMPH NODE x1. MICROSCOPIC DESCRIPTION Slides are reviewed. GROSS DESCRIPTION A. Received in formalin labeled Carolyn Abbott and designated gallbladder is a green-haile, wrinkled, previously disrupted gallbladder that measures 9.5 cm long by 4.0 cm in diameter. The mucosa is guevara-green, granular with focal yellow-guevara flecks. Sectioning shows a 0.1-0.2 cm wall thickness. The lumen contains multiple yellow-brown, irregularly-shaped calculus fragments that aggregate to 4.5 x 4.5 x 1.8 cm. There is a possible cystic duct lymph node that measures 0.6 x 0.5 x 0.4 cm. Broadcaster sections are submitted as follows:Cassette Summary:A1-cystic duct shave margin, possible cystic duct lymph node trisected, multiple gallbladder wall sections 11/24/2024 [facility]:[id number] Patient Age/Sex Location Account Attending Physician CAROLYN ABBOTT 74/M [facility] [place] [id number] Dr. Kathy Boss MD Signed (signature on file) Dr. Imelda Flowers MD 11/29/24 1525 Normal [facility] Comment on above: Performed By: #### P SUIII #### [facility] [address] [facility] [place], [address] Total proteinOrdered By: Magdaleno Boss on 11-24-2024 Protein [Mass/Vol] 6.3 g/dL 5.9-8.4 [facility] White blood cell (WBC) count Ordered By: Kathy Boss on 11-24-2024 WBC (Bld) [#/Vol] 5.6 10*3/uL 4.4-11.0 [facility] MR/PAT.ANEon 11-23-2024 MR/PAT.ANE [facility] Medical Records Department [address] [place] [address] PAT - Anesthesia 11/23/24 1041 MR#: [id number] Acct: [id number] Name: CAROLYN ABBOTT Rep #: [id number] : 1950 74 From: Shade Roldan MD PCP: Dr. Razia Maya, DO Status:PRE [facility] [place] [facility] Y Race: C Location: [facility] [place] Pre-Assessment Diagnosis/Proposed Procedure Planned Operative Procedure(s): Robotic Cholecystectomy w/grams Anesthesia History Anesthesia History - sprayer hand: Anesthesia History - sprayer hand Hx Hospitalization No 11/23/24 09:19 Any Problems With Anesthesia No 11/23/24 09:19 Cholinesterase deficiency No 11/23/24 09:19 You/Your Family Experience No 11/23/24 09:19 fever (hyperthermia) with Relationship Recent Exposure to Contagious No 11/11/24 11:11 Disease Does patient have nerve No 11/23/24 09:19 stimulator Patient instructed to have device shut off --Does patient have Pacemaker or ICD? When Was Last Pacemaker Check QUESTION #4 FULL TEXT: You/Your Family Experience fever (hyperthermia) with Anesthesia Last Oral Intake Last Oral intake: Last Oral Intake NPO since Meds taken in AM with sips of water? Meds patient instructed to take am of surgery PONV PONV - sprayer hand: PONV - sprayer hand Female No 11/23/24 09:19 HX of Motion Sickness No 11/23/24 09:19 HX of N/V After Surgery No 11/23/24 09:19 Non-Smoker Yes 11/23/24 09:19 Duration of Surgery greater Yes 11/23/24 09:19 than 60 minutes Number of Risk Factors 2 11/23/24 09:19 PONV Score Moderate Risk 11/23/24 09:19 Height Weight Height Weight: Anesthesia: Height Weight Height 5 ft 10 in 11/11/24 11:11 Respiratory Assessment Respiratory Assessment - sprayer hand: Respiratory Tract Infection Hx - sprayer hand Hx Respiratory Tract Infection No 11/23/24 09:19 STOP Sleep Apnea STOP Sleep Apnea - sprayer hand: STOP Sleep Apnea - sprayer hand Hx Hypertension Yes 11/23/24 09:19 Hx Sleep Apnea Yes 11/23/24 09:19 CPAP Yes 11/23/24 09:19 BIPAP No 11/23/24 09:19 Do you snore loudly (louder than talking or can be heard Do you often feel tired/ fatigued/ sleepy during daytime? Has anyone observed you stop breathing during sleep? STOP Results Positive 11/23/24 09:19 QUESTION #5 FULL TEXT : Do you snore loudly (louder than talking or can be heard through closed doors)? 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 Specify any problems Hx of Preganancy in last 3 N/A 11/23/24 09:19 Months Nurse Filling Out Transfusion NBUCHER 11/23/24 09:19 Questions: Date: 11/23/24 11/23/24 09:19 Time: 09:20 11/23/24 09:19 Patient unable to answer at this time (ie. confused, unrespo /Reproduction History /Reproductive History - sprayer hand: /Reproductive Hx- sprayer hand Hx Now Gestational Age (in weeks): EDC: Hx Hx Para Hx Section SAB No 11/23/24 09:19 PFSH Medical History Wears hearing aid History of renal disease Anemia Sleep apnea Gallstones Wears glasses Wears dentures Cancer Low iron Restless legs Back pain Dietary restriction Non-smoker CPAP (continuous positive airway pressure) dependence Leg cramps History of pain when walking History of edema History of echocardiogram History of stress test Cardiology follow-up encounter Hx of undescended testicle Varicose veins of both lower extremities Elevated blood pressure reading in office with white coat syndrome, without diagnosis of hypertension Uncontrolled hypertension Wears hearing aid in both ears Cellulitis of left lower extremity without foot Nonobstructive atherosclerosis of coronary artery History of non-ST elevation myocardial infarction (NSTEMI) (11/26/20) Hyperlipidemia CKD (chronic kidney disease) Obesity Essential (primary) hypertension Testicular malignancy N (more content not included)... Normal [facility] Colonoscopy Reporton 025 Colonoscopy Report [facility] Medical Records Department [address] [place] [address] Colonoscopy Report MR#: [id number] Acct: [id number] Name: CAROLYN ABBOTT Rep #: [id number] : 1950 73 From: Kathy Boss MD PCP: Dr. Razia Maya, DO Status:REG [facility] [place] Patient Name: Carolyn Abbott Procedure Date: 11/11/2024 12:14 PM Date of : 1950 Age: 73 Procedure: Colonoscopy Indications: High risk colon cancer surveillance: Personal history of colonic polyps Providers: Kathy Boss MD Referring MD: Razia Maya Medicines: Monitored Anesthesia Care Patient Profile: This is a 73 year old male. Last Colonoscopy: several years ago. Complications: No immediate complications. Procedure: Pre-Anesthesia Assessment: - Prior to the procedure, a History and Physical was performed, and patient medications and allergies were reviewed. The patient's tolerance of previous anesthesia was also reviewed. The risks and benefits of the procedure and the sedation options and risks were discussed with the patient. All questions were answered, and informed consent was obtained. Prior Anticoagulants: The patient has taken no anticoagulant or antiplatelet agents. ASA Grade Assessment: Per anesthesia. After reviewing the risks and benefits, the patient was deemed in satisfactory condition to undergo the procedure. - Prior to the procedure, a History and Physical was performed, and patient medications and allergies were reviewed. The patient's tolerance of previous anesthesia was also reviewed. The risks and benefits of the procedure and the sedation options and risks were discussed with the patient. All questions were answered, and informed consent was obtained. Prior Anticoagulants: The patient has taken no anticoagulant or antiplatelet agents. ASA Grade Assessment: Per anesthesia. After reviewing the risks and benefits, the patient was deemed in satisfactory condition to undergo the procedure. After I obtained informed consent, the scope was passed under direct vision. Throughout the procedure, the patient's blood pressure, pulse, and oxygen saturations were monitored continuously. The Colonoscope was introduced through the anus and advanced to the cecum, identified by the appendiceal orifice, ileocecal valve and palpation. The colonoscopy was performed without difficulty. The patient tolerated the procedure well. The quality of the bowel preparation was good. Scope In: 12:15:07 PM Scope Withdrawal Time 0 hours 20 minutes 29 seconds Scope Out: 12:47:19 PM Total Procedure Duration Time 0 hours 32 minutes 12 seconds Findings: The perianal and digital rectal examinations were normal. Two semi-pedunculated polyps were found in the sigmoid colon and descending colon. The polyps were 4 to 6 mm in size. These polyps were removed with a hot snare. Resection and retrieval were complete. The exam was otherwise without abnormality on direct and retroflexion views. A less than 5 mm polyp was found in the ascending colon. The polyp was sessile. The polyp was removed with a cold biopsy forceps. Resection and retrieval were complete. Impression: - Two 4 to 6 mm polyps in the sigmoid colon and in the descending colon, removed with a hot snare. Resected and retrieved. - The examination was otherwise normal on direct and retroflexion views. - One less than 5 mm polyp in the ascending colon, removed with a cold biopsy forceps. Resected and retrieved. Recommendation: - Await pathology results. - Repeat colonoscopy in 3 - 5 years for surveillance based on pathology results. - Continue present medications. Procedure Code(s): --- Professional --- 80028, PT, Colonoscopy, flexible; with removal of tumor(s), polyp(s), or other lesion(s) by snare technique 80858, 59, Colonoscopy, flexible; with biopsy, single or multiple Diagnosis Code(s): --- Professional --- Z86.010, Personal history of colonic polyps D12.5, Benign neoplasm of sigmoid colon D12.4, Benign neoplasm of descending colon D12.2, Benign neoplasm of ascending colon CPT copyright 2021 [employer]. All rights reserved. The codes documented in this report are preliminary and upon whizzer hand review may be revised to meet current compliance requirements. MD Kathy Martinez MD 11/11/2024 1:06:04 PM This report has been signed electronically. Number of Addenda: 0 Note Initiated On: 11/11/2024 12:14 PM 11/11/24 1306 Date Kathy Boss MD Cosigner Signature: Date (if indicated) CC: Dr. Razai Maya DO; Dr. Kathy Boss MD Date Dictated: 11/11/24 1214 Date Transcribed: Application Security Specialist: TR Signed Normal [facility] EGD Reporton 11-11-2024 EGD Report [facility] Medical Records Department [address] [place] [address] EGD Report MR#: [id number] Acct: [id number] Name: CAROLYN ABBOTT Rep #: [id number] : 1950 73 From: Kathy Boss MD PCP: Dr. Razia Maya DO Status:[facility] Patient Name: Carolyn Abbott Procedure Date: 11/11/2024 11:39 AM Date of : 1950 Age: 73 Procedure: Upper GI endoscopy Indications: Epigastric abdominal pain, Abdominal pain in the right upper quadrant Providers: Kathy Boss MD Referring MD: Razia Maya Medicines: Monitored Anesthesia Care Patient Profile: This is a 73 year old male. Complications: No immediate complications. Procedure: Pre-Anesthesia Assessment: - Prior to the procedure, a History and Physical was performed, and patient medications and allergies were reviewed. The patient's tolerance of previous anesthesia was also reviewed. The risks and benefits of the procedure and the sedation options and risks were discussed with the patient. All questions were answered, and informed consent was obtained. Prior Anticoagulants: The patient has taken no anticoagulant or antiplatelet agents. ASA Grade Assessment: Per anesthesia. After reviewing the risks and benefits, the patient was deemed in satisfactory condition to undergo the procedure. After obtaining informed consent, the endoscope was passed under direct vision. Throughout the procedure, the patient's blood pressure, pulse, and oxygen saturations were monitored continuously. The Colonoscope was introduced through the mouth, and advanced to the second part of duodenum. The upper GI endoscopy was accomplished without difficulty. The patient tolerated the procedure well. Scope In: 12:07:21 PM Scope Out: 12:14:32 PM Total Procedure Duration Time 0 hours 7 minutes 11 seconds Findings: The Z-line was variable and was found 40 cm from the incisors. Striped mildly erythematous mucosa without bleeding was found in the gastric antrum. Biopsies were taken with a cold forceps for histology. Biopsies were taken with a cold forceps for Helicobacter pylori cultures. The examined duodenum was normal. The cardia and gastric fundus were normal on retroflexion. Impression: - Z-line variable, 40 cm from the incisors. - Erythematous mucosa in the antrum. Biopsied. - Normal examined duodenum. Recommendation: - Await pathology results. - Discharge patient to home. - Resume previous diet. - Continue present medications. - Use sucralfate tablets 1 gram PO QID for 2 weeks. Procedure Code(s): --- Professional --- 19280, Esophagogastroduodenoscopy, flexible, transoral; with biopsy, single or multiple Diagnosis Code(s): --- Professional --- K22.89, Other specified disease of esophagus K31.89, Other diseases of stomach and duodenum R10.13, Epigastric pain R10.11, Right upper quadrant pain CPT copyright 2021 [employer]. All rights reserved. The codes documented in this report are preliminary and upon whizzer hand review may be revised to meet current compliance requirements. MD Kathy Martinez MD 11/11/2024 1:00:00 PM This report has been signed electronically. Number of Addenda: 0 Note Initiated On: 11/11/2024 11:39 AM 11/11/24 1300 Date Kathy Escobarigner Signature: Date (if indicated) CC: Dr. Razia Maya, DO; Dr. Kathy Boss MD Date Dictated: 11/11/24 1139 Date Transcribed: Application Security Specialist: TR Signed [facility] Immunohistochemical Stainson 11-11-2024 Immunohistochemical Stains Patient Age/Sex Location Account Attending Physician CAROLYN ABBOTT 73/M EN [id number] Dr. Kathy Boss MD Specimen: [id number] Received: 11/14/24 Status: NOEL Dunn Num: [id number] Spec Type: EGD BIOPSY Subm Dr: Dr. Ktahy Boss MD HEADER OPERATION: Colonoscopy, EGD PRE-OP DIAGNOSIS: GERD TISSUE SUBMITTED: A- Antrum biopsy, B- Ascending colon biopsy, C- Sigmoid polyp #1, D- Sigmoid polyp #2, E- Sigmoid polyp - stalk from sigmoid polyp #2 MICROSCOPIC DIAGNOSIS A. Antrum, biopsy: Oxyntic mucosa without gastritis or cryptitisAn immunohistochemical stain with appropriate controls for Helicobacter pylori is negativeB. Ascending colon, biopsy:Tubular adenomaC. Sigmoid polyp #1, biopsy:Colonic mucosa with no histopathologic abnormalityD. Sigmoid polyp #2, biopsy:Tubular adenoma (see comment)E. Sigmoid polyp-stalk of polyp #2, biopsy:Colonic mucosa without histopathologic abnormality COMMENT Dr. Imelda Flowers has reviewed the slides for part D and agrees that it is a tubular adenoma.Steve Pena MD, 11/16/2024 MICROSCOPIC DESCRIPTION Slides are reviewed. GROSS DESCRIPTION A. Received in fixative is one container labeled with the patient's name and designated Antrum biopsy. The specimen consists of one irregular fragment of light guevara soft tissue that measures 0.3 x 0.3 x 0.2 cm. The specimen is totally submitted in one cassette. B. Received in fixative is one container labeled with the patient's name and designated Ascending colon biopsy. The specimen consists of two irregular fragments of light guevara soft tissue that in aggregate measure 0.6 x 0.3 x 0.2 cm. The specimen is totally submitted in one cassette. C. Received in fixative is one container labeled with the patient's name and designated Sigmoid polyp #1. The specimen consists of one irregular fragment of light guevara soft tissue that measures 0.4 x 0.2 x 0.1 cm. The specimen is totally submitted in one cassette. D. Received in fixative is one container labeled with the patient's name and designated Sigmoid polyp #2. The specimen consists of one irregular fragment of light guevara soft tissue that measures 0.7 x 0.6 x 0.3 cm. The specimen is totally submitted in one cassette. E. Received in fixative is one container labeled with the patient's name and designated Sigmoid polyp - stalk of polyp #2. The specimen consists of one irregular fragment of light guevara soft tissue that measures 0.4 x 0.3 x 0.2 cm. The specimen is totally submitted in one cassette. MS/ 11/14/2024 CPT:72694w6,93703, TC:1 Patient Age/Sex Location Account Attending Physician CAROLYN ABBOTT 73/M EN [id number] Dr. Kathy Boss MD Signed (signature on file) Dr. Orlando Pena MD 11/16/24 1742 Normal [facility] Comment on above: Performed By: #### L 100.0100, L500.4050 #### [facility] [address] [place], [address] MR/POSTOP.ANEocny 11-11-2024 [facility] Department [address] [place] [address] Anesthesia Postop Eval I 11/11/24 1257 MR#: [id number] Acct: [id number] Name: CAROLYN ABBOTT Rep #: [id number] : 1950 73 From: Jarad Pedro CRNA PCP: Dr. Razia Maya, DO Status:REG [facility] Y Race: C Location: [place] [address] Anesthesia: Postop Eval I Current Vital Signs Temperature: 97.2 F Pulse Rate: 59 Blood Pressure: 123/76 Respiratory Rate: 20 Pulse Ox: 98 Oxygen Delivery Method: Room Air Assessment Airway patent: Yes Spontaneous unlabored respirations: Yes Mental status: Awake nausea: No Vomiting: No Anesthesia Complication: No Fluid Hydration Crystalloid volume administer (ml): 20 Total IV fluid infused: 20 Progress Note Anesthesia document: Postop Eval 1 completed: Yes 11/11/24 1258 Date Jarad Pedro SCUTCHER TENDER Cosigner Signature: CC: Signed Normal [facility] MR/[id number] 11-11-2024 MR/POSTOPAN2 [facility] Medical Records Department [address] [facility] [place] [address] Anesthesia Postop Eval II 11/11/24 1452 MR#: [id number] Acct: [id number] Name: CAROLYN ABBOTT Rep #: [id number] : 1950 73 From: Shade Roldan MD PCP: Dr. Razia Maya, DO Status:[facility] Y Race: C Location: EN Anesthesia Postop Eval I Sum Postop Eval Completion status Anesthesia document: Postop Eval 1 completed: Yes Anesthesia Postop Eval I Summary Anesthesia Postop Eval I Summary: Anesthesia Postop Eval I: Assessment Summary Airway patent Yes 11/11/24 12:58 [email or web address] Spontaneous unlabored Yes 11/11/24 12:58 [email or web address] [email or web address] respirations Mental status Awake 11/11/24 12:58 [email or web address] [email or web address] nausea No 11/11/24 12:58 SCUTCHER [email or web address] Vomiting No 11/11/24 12:58 [email or web address] [email or web address] Anesthesia Postop Eval I: Fluid Summary Crystalloid volume administer 20 11/11/24 12:58 SCUTCHER [email or web address] (ml) Colloids volume administered ( ml) Blood Product volume administered (ml) Total IV fluid infused 20 11/11/24 12:58 [email or web address] [email or web address] Anesthesia Postop Eval I: Summary Notes Anesthesia Complication No 11/11/24 12:58 [email or web address] Anesthesia Complication Comment: Post-operative progress note Anesthesia: Postop Eval II Evaluation Mental status: Awake Pain Level: 0 nausea: No Vomiting: No 11/11/241451 Date Shade Roldan MD Cosigner Signature: Date CC: Signed Normal [facility] MR/Elvi 11-10-2024 MR/PAT.MARGARITA [facility] Medical Records Department [address] [place] [address] PAT - Anesthesia 11/10/24 1622 MR#: [id number] Acct: [id number] Name: CAROLYN ABBOTT Rep #: [id number] : 1950 73 From: Sherif Hodges MD PCP: Dr. Razia Maya, DO Status:PRE [facility] Y Race: C Location: EN Pre-Assessment Diagnosis/Proposed Procedure Planned Operative Procedure(s): EGD, COLONOSCOPY Anesthesia History Anesthesia History - sprayer hand: Anesthesia History - sprayer hand Hx Hospitalization No 11/10/24 13:54 Any Problems With Anesthesia No 11/10/24 13:54 Cholinesterase deficiency No 11/10/24 13:54 You/Your Family Experience No 11/10/24 13:54 fever (hyperthermia) with Relationship Recent Exposure to Contagious No 01/07/23 10:28 Disease Does patient have nerve No 11/10/24 13:54 stimulator Patient instructed to have device shut off --Does patient have Pacemaker or ICD? When Was Last Pacemaker Check QUESTION #4 FULL TEXT: You/Your Family Experience fever (hyperthermia) with Anesthesia Any additional information?: No Last Oral Intake Last Oral intake: Last Oral Intake NPO since Meds taken in AM with sips of water? Meds patient instructed to take am of surgery Any additional information?: No PONV PONV - sprayer hand: PONV - sprayer hand Female No 11/10/24 13:54 HX of Motion Sickness No 11/10/24 13:54 HX of N/V After Surgery No 11/10/24 13:54 Non-Smoker Yes 11/10/24 13:54 Duration of Surgery greater No 11/10/24 13:54 than 60 minutes Number of Risk Factors 1 11/10/24 13:54 PONV Score Low Risk 11/10/24 13:54 Any additional information?: No Height Weight Height Weight: Anesthesia: Height Weight Height 5 ft 10 in 11/07/24 13:50 Respiratory Assessment Respiratory Assessment - sprayer hand: Respiratory Tract Infection Hx - sprayer hand Hx Respiratory Tract Infection No 11/10/24 13:54 STOP Sleep Apnea STOP Sleep Apnea - sprayer hand: STOP Sleep Apnea - sprayer hand Hx Hypertension Yes 11/10/24 13:54 Hx Sleep Apnea Yes 11/10/24 13:54 CPAP Yes 11/10/24 13:54 BIPAP No 11/10/24 13:54 Do you snore loudly (louder than talking or can be heard Do you often feel tired/ fatigued/ sleepy during daytime? Has anyone observed you stop breathing during sleep? STOP Results Positive 11/10/24 13:54 QUESTION #5 FULL TEXT : Do you snore loudly (louder than talking or can be heard through closed doors)? 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 Specify any problems Hx of Preganancy in last 3 N/A 11/10/24 13:54 Months Nurse Filling Out Transfusion [facility] 11/10/24 13:54 Questions: Date: 11/10/24 11/10/24 13:54 Time: 14:03 11/10/24 13:54 Patient unable to answer at this time (ie. confused, unrespo /Reproduction History /Reproductive History - sprayer hand: /Reproductive Hx- sprayer hand Hx Now Gestational Age (in weeks): EDC: Hx Hx Para Hx Section SAB No 12/31/22 09:04 PFSH Medical History Wears hearing aid History of renal disease Anemia Sleep apnea Gallstones Wears glasses Wears dentures Cancer Low iron Restless legs Back pain Dietary restriction Non-smoker CPAP (continuous positive airway pressure) dependence Leg cramps History of pain when walking History of edema History of echocardiogram History of stress test Cardiology follow-up encounter Hx of undescended testicle Varicose veins of both lower extremities Elevated blood pressure reading in office with white coat syndrome, without diagnosis of hypertension Uncontrolled hypertension Wears hearing aid in both ears Cellulitis of left lower extremity without foot Nonobstructive atherosclerosis of coronary artery History of non-ST elevation myocardial infarction (NSTEMI) (11/26/20) Hyperlipidemia CKD (chronic kid (more content not included)... Normal [facility] Surgery Visit Reporton 11-07 Surgery Visit Report [facility] [address] [place] [address]. [address] [place] [address] OFFICE VISIT Date of Service: 11/07/24 MR#: [id number] Acct: [id number] Name: CAROLYN ABBOTT Rep #: [id number] : 1950 Provider: Dr. Kathy hernandez MD Age/Sex: 73/M Location: [facility] Status: Signed Intake Vital Signs 09/27/24 13:07 11/07/24 13:50 Height 5 ft 10 in 5 ft 10 in Weight: 218 lb 215 lb 8 oz BMI 31.2 30.9 BP 111/75 Blood Pressure Location Rt brachial Position Sitting Respiration 18 Pulse 74 Pulse Source Monitor Temp 97.2 F L Temp Source Temporal Pulse Oximetry (%) 99 Oxygen Delivery Method room air Intake Visit Reasons: GALLBLADDER Chief Complaint: gallbladder Accompanied by: Is patient in pain?: No Allergies clindamycin Allergy (Verified 11/07/24 13:50) Swelling Sulfa (Sulfonamide Antibiotics) Allergy (Verified 11/07/24 13:50) Unknown, A CHILD allopurinol Adverse Reaction (Intermediate, Verified 11/07/24 13:50) Possible cause of rash on legs: went away after stopping simvastatin Adverse Reaction (Verified 11/07/24 13:50) myalgia Medications ???Medication ???Instructions ???Recorded ???Confirmed ???Type carbidopa 50 mg-levodopa 200 1 tab PO TID parkinsons 03/26/21 0 11/07/24 History mg-entacapone 200 mg tablet cholecalciferol (vitamin D3) 50 50 mcg PO DAILY 07/05/21 11/07/24 History mcg (2,000 unit) capsule carvedilol 25 mg tablet 25 mg PO BID 12/31/22 11/07/24 His tory amlodipine 10 mg tablet 10 mg PO QHS 01/06/23 11/07/24 His tory ascorbic acid (vitamin C) 500 mg 1,500 mg PO QDAY 09/27/24 11/07/24 History capsule carbidopa 25 mg-levodopa 100 mg 1 tab PO TID PRN 09/27/24 11/07/24 History tablet clonidine HCl 0.1 mg tablet 0.1 mg PO Q4H PRN 09/27/24 5 History ferrous sulfate 325 mg (65 mg 325 mg PO BID 09/27/24 11/07/24 Hi story iron) tablet hydralazine 50 mg tablet 50 mg PO BID 09/27/24 11/07/24 His tory hydrochlorothiazide 12.5 mg tablet 12.5 mg PO QDAY 09/27/24 5 History magnesium 250 mg tablet 250 mg PO DAILY 09/27/24 11/07/24 History mecobalamin (vitamin B12) 5,000 5,000 mcg PO QDAY 09/27/24 5 History mcg chewable tablet pramipexole 0.25 mg tablet 0.25 mg PO QHS restless legs 09/2711/07/24 History primidone 50 mg tablet 100 mg PO QAM 09/27/24 11/07/24 Hi story primidone 50 mg tablet 150 mg PO QHS 09/27/24 11/07/24 Hi story omeprazole 40 mg capsule,delayed 40 mg PO QDAY #30 caps 11/03/24 Rx release Have you fallen in the past year?: No PFSH Medical History (Updated 11/09/24 @ 11:[address] Kathy Boss MD) Gallstones Wears glasses Wears dentures Cancer Low iron Restless legs Back pain Dietary restriction Non-smoker CPAP (continuous positive airway pressure) dependence Leg cramps History of pain when walking History of edema History of echocardiogram History of stress test Cardiology follow-up encounter Hx of undescended testicle Varicose veins of both lower extremities Elevated blood pressure reading in office with white coat syndrome, without diagnosis of hypertension Uncontrolled hypertension Wears hearing aid in both ears Cellulitis of left lower extremity without foot Nonobstructive atherosclerosis of coronary artery History of non-ST elevation myocardial infarction (NSTEMI) (11/26/20) Hyperlipidemia CKD (chronic kidney disease) Obesity Essential (primary) hypertension Testicular malignancy Nonrheumatic aortic (valve) stenosis Parkinsons disease Tremor, essential Gout Surgical History S/P hernia repair History of colonoscopy History of lymph node excision History of left heart catheterization (01/21/21) History of surgical removal of testicle History of tonsillectomy Family History Father CAD (coronary artery disease) Sudden cardiac , Onset Age: 59 Myocardial infarction, Onset Age: 59 Hypertension Mother Heart disease Hypertension Brother Sudden cardiac , Onset Age: 68 Social History household members: spouse current occupational status: retired Smoking Status: Never smoker alcohol intake: never substance use type: does not use caffeine: No what type of physical activity do you participate in: bicycling frequency: 1-2 times per week duration: 30-45 minutes/day seatbelt use: always do you feel safe at home: Yes HPI HPI HPI: 73-year-old male presents due to gallstones. Patient states that about 2 weeks ago on Thursday he had right upper quadrant pain which occurred in the morning when he (more content not included)... Normal [facility] Abdomen Limitedon 10-27-2024 Abdomen Limited [facility] Imaging Services [address] [place] [address] Abdomen Limited MR#: [id number] Acct: [id number] Name: CAROLYN ABBOTT Rep #: [id number] : 1950 M 73 From: Victor Manuel pickering MD PCP: Dr. Razia Maya DO Status: REG CLI Study: Abdomen Limited Date of Exam: 10/27/24 Exam# [id number] Ordering Dr: Sera Ozuna AUDIT CLERKS SUPERVISOR-Jesenia PROCEDURE: ABDOMEN LIMITED REASON FOR EXAM: Right upper quadrant pain. COMPARISON: None FINDINGS: Liver: Diffusely echogenic suggesting fatty infiltration. Gallbladder: Multiple echogenic gallstones are identified. Common bile duct: Normal measuring measures 3 mm.. Pancreas: Visualized portions are sonographically unremarkable. The right kidney is hypertrophic. It measures 17.2 cm x 10.9 cm x 9.8 cm. The cortex measures 1.8 cm. Multiple cysts are seen within it. The largest cyst measures 7.5 cm x 8.2 cm x 7.4 cm. US/Abdomen Limited IMPRESSION: Multiple gallstones. Fatty infiltration of the liver. Hypertrophy of the right kidney with multiple cysts within it. Reading Location: [facility] CC: AUDIT CLERKS SUPERVISOR-C Sera Ozuna; Dr. Razia Maya DO Application Security Specialist: Signed Normal [facility] Absolute neutrophil countOrd ered By: Sera Ozuna on 10-24-2024 Neutrophils (Bld) [#/Vol] 3.7 10*3/uL 2.0-7.7 [facility] Albumin to globulin ratioOrd ered By: Sera Ozuna on 10-24-2024 Albumin/Globulin [Mass ratio] 1.2 {ratio} 0.9-2.4 [facility] Basophil percentageOrdered B y: Sera Ozuna on 10-24-2024 Basophils/100 WBC (Bld) 0.6 % 0-1 [facility] Bilirubin, totalOrdered By: Sera Ozuna on 10-24-2024 Bilirubin [Mass/Vol] 0.20 mg/dL 0.20-1.00 [facility] Comment on above: For patients on eltr ombopag therapy, use of Dimension [place] TBIL is not recommended. Blood urea nitrogen (BUN)/cr eatinine ratioOrdered By: Sera Ozuna on 10-24-2024 Urea nitrogen/Creatinine [Mass ratio] 26.0 mg/mg High 10-20 [facility] CBC W/Diff, Automatedon - Absolute Lymph 0.87 X10 3/uL Normal 0.83-4.51 [facility] Comment on above: Performed By: #### L 100.0100, L500.4050 #### [facility] [address] [place], [address] Absolute Neut 3.7 X10 3/uL Normal 2.0-7.7 [facility] Comment on above: Performed By: #### L 100.0100, L500.4050 #### [facility] [address] [place], [address] Basophils/100 WBC (Bld) 0.6 % Normal 0-1 [facility] Comment on above: Performed By: #### L 100.0100, L500.4050 #### [facility] [address] [place], [address] Eosinophils/100 WBC (Bld) 2.3 % Normal 0-5 [facility] Comment on above: Performed By: #### L 100.0100, L500.4050 #### [facility] [address] [place], [address] Erythrocyte distribution width (RBC) [Ratio] 14.6 % Normal 11.6-14.6 [facility] Comment on above: Performed By: #### L 100.0100, L500.4050 #### [facility] [address] [place], [address] Hematocrit (Bld) [Volume fraction] 30.4 % Low 40-54 [facility] Comment on above: Performed By: #### L 100.0100, L500.4050 #### [facility] [address] [place], [address] Hemoglobin (Bld) [Mass/Vol] 10.3 g/dL Low 13.0-16.5 [facility] Comment on above: Performed By: #### L 100.0100, L500.4050 #### [facility] [address] [place], [address] IG% 1.000 High 0.0-0.9 [facility] Comment on above: Result Comment: IG% - Immature Granulocytes (promyelocytes, myelocytes and metamyelocytes) > 1% indicates that a LEFT SHIFT is Present. Performed By: #### L 100.0100, L500.4050 #### [facility] [address] [place], [address] Lymphocytes/100 WBC (Bld) 16.5 % Low 19-41 [facility] Comment on above: Performed By: #### L 100.0100, L500.4050 #### [facility] [address] [place], [address] MCH (RBC) [Entitic mass] 29.8 pg Normal 27.0-32.0 [facility] Comment on above: Performed By: #### L 100.0100, L500.4050 #### [facility] [address] [place], [address] MCHC (RBC) [Mass/Vol] 33.9 g/dL Normal 32-36 [facility] Comment on above: Performed By: #### L 100.0100, L500.4050 #### [facility] [address] [place], [address] MCV (RBC) [Entitic vol] 87.9 fL Normal 80-94 [facility] Comment on above: Performed By: #### L 100.0100, L500.4050 #### [facility] [address] [place], [address] Monocytes/100 WBC (Bld) 9.3 % Normal 0-10 [facility] Comment on above: Performed By: #### L 100.0100, L500.4050 #### [facility] [address] [place], [address] Neutrophils/100 WBC (Bld) 70.3 % High 47-70 [facility] Comment on above: Performed By: #### L 100.0100, L500.4050 #### [facility] [address] [place], [address] Nucleated RBC (Bld) [#/Vol] 0 10*3/uL Normal 0-5 [facility] Comment on above: Performed By: #### L 100.0100, L500.4050 #### [facility] [address] [place], [address] Platelet mean volume (Bld) [Entitic vol] 11.1 fL Normal 6.2-12.0 [facility] Comment on above: Performed By: #### L 100.0100, L500.4050 #### [facility] [address] [place], [address] Platelets (Bld) [#/Vol] 182 10*3/uL Normal 150-450 [facility] Comment on above: Performed By: #### L 100.0100, L500.4050 #### [facility] [address] [place], [address] RBC (Bld) [#/Vol] 3.46 10*6/uL Low 4.6-6.2 [facility] Comment on above: Performed By: #### L 100.0100, L500.4050 #### [facility] [address] [place], [address] RDW SD 46.0 fl High 35.1-43.9 [facility] Comment on above: Performed By: #### L 100.0100, L500.4050 #### [facility] [address] [place], [address] WBC (Bld) [#/Vol] 5.3 10*3/uL Normal 4.4-11.0 [facility] Comment on above: Performed By: #### L 100.0100, L500.4050 #### [facility] [address] [place], [address] Carbon dioxide measurementOr dered By: Sera Ozuna on 10-24-2024 CO2 [Moles/Vol] 27.0 mmol/L 21.0-32.0 [facility] Chloride measurementOrdered By: Sera Ozuna on 10-24-2024 Chloride [Moles/Vol] 104 mmol/L 98-107 [facility] Comprehensive Metabolic Prof ilon 10-24-2024 Albumin [Mass/Vol] 3.5 g/dL Normal 3.2-5.0 [facility] Comment on above: Performed By: #### L 100.0100, L500.4050 #### [facility] [address] [place], [address] Albumin/Globulin [Mass ratio] 1.2 {ratio} Normal 0.9-2.4 [facility] Comment on above: Performed By: #### L 100.0100, L500.4050 #### [facility] [address] [place], [address] ALK P 90 U/L Normal 45-117 [facility] Comment on above: Performed By: #### L 100.0100, L500.4050 #### [facility] [address] [place], [address] ALT [Catalytic activity/Vol] 12 U/L Low 16-61 [facility] Comment on above: Performed By: #### L 100.0100, L500.4050 #### [facility] [address] [place], [address] AST [Catalytic activity/Vol] 13 U/L Low 15-37 [facility] Comment on above: Performed By: #### L 100.0100, L500.4050 #### [facility] [address] [place], [address] Bilirubin [Mass/Vol] 0.20 mg/dL Normal 0.20-1.00 [facility] Comment on above: Result Comment: For patients on eltrombopag therapy, use of Dimension [place] TBIL is not recommended. Performed By: #### L 100.0100, L500.4050 #### [facility] [address] [place], [address] BUN/CRE 26.0 RATIO High 10-20 [facility] Comment on above: Performed By: #### L 100.0100, L500.4050 #### [facility] [address] [place], [address] CA,Total 9.3 mg/dL Normal 8.5-10.1 [facility] Comment on above: Performed By: #### L 100.0100, L500.4050 #### [facility] [address] [place], [address] Chloride [Moles/Vol] 104 mmol/L Normal 98-107 [facility] Comment on above: Performed By: #### L 100.0100, L500.4050 #### [facility] [address] [place], [address] CO2 [Moles/Vol] 27.0 mmol/L Normal 21.0-32.0 [facility] Comment on above: Performed By: #### L 100.0100, L500.4050 #### [facility] [address] [place], [address] Creatinine [Mass/Vol] 1.50 mg/dL High 0.70-1.30 [facility] Comment on above: Result Comment: The validity of the calculated GFR GFRAA in patients over 70 years has not been determined. Clinical correlation is essential. Performed By: #### L 100.0100, L500.4050 #### [facility] [address] [place], [address] EST GFR - AA 59 mL/min Low >60 [facility] Comment on above: Result Comment: Afri can Ivorian GFR Calc Performed By: #### L 100.0100, L500.4050 #### [facility] [address] [place], [address] GAP 8 Normal 5-15 [facility] Comment on above: Performed By: #### L 100.0100, L500.4050 #### [facility] [address] [place], [address] GFR/1.73 sq M.predicted among non-blacks MDRD (S/P/Bld) [Vol rate/Area] 49 mL/min/{1.73_m2} Low >60 [facility] Comment on above: Result Comment: Non- GFR Calc Performed By: #### L 100.0100, L500.4050 #### [facility] [address] [place], [address] Globulin (S) [Mass/Vol] 3.0 g/dL Normal 2.2-4.2 [facility] Comment on above: Performed By: #### L 100.0100, L500.4050 #### [facility] [address] [place], [address] Glucose [Mass/Vol] 98 mg/dL Normal 74-106 [facility] Comment on above: Performed By: #### L 100.0100, L500.4050 #### [facility] [address] [place], [address] Potassium [Moles/Vol] 4.5 mmol/L Normal 3.5-5.1 [facility] Comment on above: Performed By: #### L 100.0100, L500.4050 #### [facility] [address] [place], [address] Sodium [Moles/Vol] 139 mmol/L Normal 136-145 [facility] Comment on above: Performed By: #### L 100.0100, L500.4050 #### [facility] [address] [place], [address] T PROT 6.5 g/dL Normal 6.4-8.2 [facility] Comment on above: Performed By: #### L 100.0100, L500.4050 #### [facility] [address] [place], [address] Urea nitrogen [Mass/Vol] 39 mg/dL High 7-18 [facility] Comment on above: Performed By: #### L 100.0100, L500.4050 #### [facility] [address] [place], [address] Eosinophil percentageOrdered By: Sera Ozuna on 10-24-2024 Eosinophils/100 WBC (Bld) 2.3 % 0-5 [facility] Erythrocyte distribution wid th ratioOrdered By: Seratoby Ozuna on 10-24-2024 Erythrocyte distribution width (RBC) [Ratio] 14.6 % 11.6-14.6 [facility] Erythrocyte distribution wid th standard deviationOrdered By: Sera Laith on 10-24-2024 Erythrocyte distribution width (RBC) [Entitic vol] 46.0 fL High 35.1-43.9 [facility] Estimated glomerular filtrat ion rate (GFR) AmericanOrdered By: Sera Ozuna on 10-24-2024 Estimated GFR (MDRD) Amer 59 mL/min Low >60 [facility] Comment on above: GFR Calc Glomerular filtration rate ( GFR) estimationOrdered By: Sera Ozuna on 10-24-2024 Estimated GFR (MDRD) Non-Af Amer 49 mL/min Low >60 [facility] Comment on above: Non- GFR Calc Glucose measurementOrdered B y: Sera Ozuna on 10-24-2024 Glucose [Mass/Vol] 98 mg/dL 74-106 [facility] Hematocrit Auto (Bld) [Volum e fraction]Ordered By: Sera Ozuna on 10-24-2024 Hematocrit (Bld) [Volume fraction] 30.4 % Low 40-54 [facility] Hemoglobin measurementOrdere d By: Sera Ozuna on 10-24-2024 Hemoglobin (Bld) [Mass/Vol] 10.3 g/dL Low 13.0-16.5 [facility] Immature granulocytes/100 WB C Auto (Bld)Ordered By: Sera Ozuna on 10-24-2024 Immature granulocytes/100 WBC (Bld) 1.000 % High 0.0-0.9 [facility] Comment on above: IG% - Immature Granu locytes (promyelocytes, myelocytes and metamyelocytes) > 1% indicates that a LEFT SHIFT is Present. Laboratory - Chemistry and C hemistry - challengeOrdered By: Sera Ozuna on 10-24-2024 AST [Catalytic activity/Vol] 13 U/L Low 15-37 [facility] Lymphocytes Auto (Unsp spec) [#/Vol]Ordered By: Sera Ozuna on 10-24-2024 Lymphocytes (Bld) [#/Vol] 0.87 10*3/uL 0.83-4.51 [facility] Lymphocytes/100 WBC Auto (Un sp spec)Ordered By: Sera Ozuna on 10-24-2024 Lymphocytes/100 WBC (Bld) 16.5 % Low 19-41 [facility] MCV (mean corpuscular volume ) determinationOrdered By: Sera Ozuna on 10-24-2024 MCV (RBC) [Entitic vol] 87.9 fL 80-94 [facility] Mean corpuscular hemoglobin (MCH) determinationOrdered By: Seratoby Ozuna on 10-24-2024 MCH (RBC) [Entitic mass] 29.8 pg 27.0-32.0 [facility] Mean corpuscular hemoglobin concentration (MCHC) determinationOrdered By: Seratoby Ozuna on 10-24-2024 MCHC (RBC) [Mass/Vol] 33.9 g/dL 32-36 [facility] Mean platelet volume determi nationOrdered By: Sera Ozuna on 10-24-2024 Platelet mean volume (Bld) [Entitic vol] 11.1 fL 6.2-12.0 [facility] Monocyte percentageOrdered B y: Sera Ozuna on 10-24-2024 Monocytes/100 WBC (Bld) 9.3 % 0-10 [facility] Neutrophil percentageOrdered By: Sera Ozuna on 10-24-2024 Neutrophils/100 WBC (Bld) 70.3 % High 47-70 [facility] Nucleated red blood cell per centageOrdered By: Sera Ozuna on 10-24-2024 Nucleated RBC/100 WBC (Bld) [Ratio] 0 % 0-5 [facility] Platelet countOrdered By: Ra jessy Ozuna on 10-24-2024 Platelets (Bld) [#/Vol] 182 10*3/uL 150-450 [facility] Potassium measurementOrdered By: Sera Ozuna on 10-24-2024 Potassium [Moles/Vol] 4.5 mmol/L 3.5-5.1 [facility] RBC Auto (Bld) [#/Vol]Ordere d By: Sera Ozuna on 10-24-2024 RBC (Bld) [#/Vol] 3.46 10*6/uL Low 4.6-6.2 [facility] Serum anion gap measurementO rdered By: Sera Ozuna on 10-24-2024 Anion gap [Moles/Vol] 8 mmol/L 5-15 [facility] Serum globulin measurementOr dered By: Sera Ozuna on 10-24-2024 Globulin (S) [Mass/Vol] 3.0 g/dL 2.2-4.2 [facility] Serum or plasma alanine ahuja otransferase (ALT) measurementOrdered By: Sera Ozuna on 10-24-2024 ALT [Catalytic activity/Vol] 12 U/L Low 16-61 [facility] Serum or plasma albumin mariano urement (mass/volume)Ordered By: Sera Ozuna on 10-24-2024 Albumin [Mass/Vol] 3.5 g/dL 3.2-5.0 [facility] Serum or plasma alkaline roula sphatase measurementOrdered By: Sera Ozuna on 10-24-2024 ALP [Catalytic activity/Vol] 90 U/L 45-117 [facility] Serum or plasma calcium mariano urement (mass/volume)Ordered By: Sera Ozuna on 10-24-2024 Calcium [Mass/Vol] 9.3 mg/dL 8.5-10.1 [facility] Serum or plasma creatinine m easurement (mass/volume)Ordered By: Sera Ozuna on 10-24-2024 Creatinine [Mass/Vol] 1.50 mg/dL High 0.70-1.30 [facility] Comment on above: The validity of the calculated GFR & GFRAA in patients over 70 years has not been determined. Clinical correlation is essential. Serum or plasma urea nitroge n measurement (mass/volume)Ordered By: Sera Ozuna on 10-24-2024 Urea nitrogen [Mass/Vol] 39 mg/dL High 7-18 [facility] Sodium levelOrdered By: Joanie Ozuna on 10-24-2024 Sodium [Moles/Vol] 139 mmol/L 136-145 [facility] Total proteinOrdered By: Arie Ozuna on 10-24-2024 Protein [Mass/Vol] 6.5 g/dL 6.4-8.2 [facility] White blood cell (WBC) count Ordered By: Sera Ozuna on 10-24-2024 WBC (Bld) [#/Vol] 5.3 10*3/uL 4.4-11.0 [facility] Absolute neutrophil countOrd ered By: Razia Maya on 09-19-2024 Neutrophils (Bld) [#/Vol] 3.2 10*3/uL 2.0-7.7 [facility] Basic Metabolic Profile (BMP )on 09-19-2024 BUN/CRE 29.9 RATIO High 10-20 [facility] Comment on above: Performed By: #### L 500.2500, L100.0100, L501.2300 #### [facility] [address] [place], [address] CA,Total 8.9 mg/dL Normal 8.5-10.1 [facility] Comment on above: Performed By: #### L 500.2500, L100.0100, L501.2300 #### [facility] [address] [place], [address] Chloride [Moles/Vol] 109 mmol/L High 98-107 [facility] Comment on above: Performed By: #### L 500.2500, L100.0100, L501.2300 #### [facility] [address] [place], [address] CO2 [Moles/Vol] 24.0 mmol/L Normal 21.0-32.0 [facility] Comment on above: Performed By: #### L 500.2500, L100.0100, L501.2300 #### [facility] [address] [place], [address] Creatinine [Mass/Vol] 1.47 mg/dL High 0.70-1.30 [facility] Comment on above: Result Comment: The validity of the calculated GFR GFRAA in patients over 70 years has not been determined. Clinical correlation is essential. Performed By: #### L 500.2500, L100.0100, L501.2300 #### [facility] [address] [place], [address] EST GFR - AA 60 mL/min Normal >60 [facility] Comment on above: Result Comment: Afri can Ivorian GFR Calc Performed By: #### L 500.2500, L100.0100, L501.2300 #### [facility] [address] [place], [address] GAP 6 Normal 5-15 [facility] Comment on above: Performed By: #### L 500.2500, L100.0100, L501.2300 #### [facility] [address] [place], [address] GFR/1.73 sq M.predicted among non-blacks MDRD (S/P/Bld) [Vol rate/Area] 50 mL/min/{1.73_m2} Low >60 [facility] Comment on above: Result Comment: Non- GFR Calc Performed By: #### L 500.2500, L100.0100, L501.2300 #### [facility] [address] [place], [address] Glucose [Mass/Vol] 118 mg/dL High 74-106 [facility] Comment on above: Result Comment: Fast ing Glucose result from 100 to 125 mg/dL suggests IMPAIRED HOMEOSTASIS per A.D.A. criteria. Performed By: #### L 500.2500, L100.0100, L501.2300 #### [facility] [address] [place], [address] Potassium [Moles/Vol] 4.9 mmol/L Normal 3.5-5.1 [facility] Comment on above: Result Comment: Slig ht Hemolysis, Result may be falsely increased. Performed By: #### L 500.2500, L100.0100, L501.2300 #### [facility] [address] [place], [address] Sodium [Moles/Vol] 139 mmol/L Normal 136-145 [facility] Comment on above: Performed By: #### L 500.2500, L100.0100, L501.2300 #### [facility] [address] [place], [address] Urea nitrogen [Mass/Vol] 44 mg/dL High 7-18 [facility] Comment on above: Performed By: #### L 500.2500, L100.0100, L501.2300 #### [facility] [address] [place], [address] Basophil percentageOrdered B y: Razia Maya on 09-19-2024 Basophils/100 WBC (Bld) 0.4 % 0-1 [facility] Blood urea nitrogen (BUN)/cr eatinine ratioOrdered By: Razia Maya on 09-19-2024 Urea nitrogen/Creatinine [Mass ratio] 29.9 mg/mg High 20 [facility] CBC W/Diff, Automatedon 09-01 Absolute Lymph 0.89 X10 3/uL Normal 0.83-4.51 [facility] Comment on above: Performed By: #### L 500.2500, L100.0100, L501.2300 #### [facility] [address] [place], [address] Absolute Neut 3.2 X10 3/uL Normal 2.0-7.7 [facility] Comment on above: Performed By: #### L 500.2500, L100.0100, L501.2300 #### [facility] [address] [place], [address] Basophils/100 WBC (Bld) 0.4 % Normal 0-1 [facility] Comment on above: Performed By: #### L 500.2500, L100.0100, L501.2300 #### [facility] [address] [place], [address] Eosinophils/100 WBC (Bld) 2.4 % Normal 0-5 [facility] Comment on above: Performed By: #### L 500.2500, L100.0100, L501.2300 #### [facility] [address] [place], [address] Erythrocyte distribution width (RBC) [Ratio] 14.3 % Normal 11.6-14.6 [facility] Comment on above: Performed By: #### L 500.2500, L100.0100, L501.2300 #### [facility] [address] [place], [address] Hematocrit (Bld) [Volume fraction] 30.6 % Low 40-54 [facility] Comment on above: Performed By: #### L 500.2500, L100.0100, L501.2300 #### [facility] [address] [place], [address] Hemoglobin (Bld) [Mass/Vol] 10.4 g/dL Low 13.0-16.5 [facility] Comment on above: Performed By: #### L 500.2500, L100.0100, L501.2300 #### [facility] [address] [place], [address] IG% 0.400 Normal 0.0-0.9 [facility] Comment on above: Result Comment: IG% - Immature Granulocytes (promyelocytes, myelocytes and metamyelocytes) > 1% indicates that a LEFT SHIFT is Present. Performed By: #### L 500.2500, L100.0100, L501.2300 #### [facility] [address] [place], [address] Lymphocytes/100 WBC (Bld) 19.2 % Normal 19-41 [facility] Comment on above: Performed By: #### L 500.2500, L100.0100, L501.2300 #### [facility] [address] [place], [address] MCH (RBC) [Entitic mass] 30.3 pg Normal 27.0-32.0 [facility] Comment on above: Performed By: #### L 500.2500, L100.0100, L501.2300 #### [facility] [address] [place], [address] MCHC (RBC) [Mass/Vol] 34.0 g/dL Normal 32-36 [facility] Comment on above: Performed By: #### L 500.2500, L100.0100, L501.2300 #### [facility] [address] [place], [address] MCV (RBC) [Entitic vol] 89.2 fL Normal 80-94 [facility] Comment on above: Performed By: #### L 500.2500, L100.0100, L501.2300 #### [facility] [address] [place], [address] Monocytes/100 WBC (Bld) 8.2 % Normal 0-10 [facility] Comment on above: Performed By: #### L 500.2500, L100.0100, L501.2300 #### [facility] [address] [place], [address] Neutrophils/100 WBC (Bld) 69.4 % Normal 47-70 [facility] Comment on above: Performed By: #### L 500.2500, L100.0100, L501.2300 #### [facility] [address] [place], [address] Nucleated RBC (Bld) [#/Vol] 0 10*3/uL Normal 0-5 [facility] Comment on above: Performed By: #### L 500.2500, L100.0100, L501.2300 #### [facility] [address] [place], [address] Platelet mean volume (Bld) [Entitic vol] 11.4 fL Normal 6.2-12.0 [facility] Comment on above: Performed By: #### L 500.2500, L100.0100, L501.2300 #### [facility] [address] [place], [address] Platelets (Bld) [#/Vol] 164 10*3/uL Normal 150-450 [facility] Comment on above: Performed By: #### L 500.2500, L100.0100, L501.2300 #### [facility] [address] [place], [address] RBC (Bld) [#/Vol] 3.43 10*6/uL Low 4.6-6.2 [facility] Comment on above: Performed By: #### L 500.2500, L100.0100, L501.2300 #### [facility] [address] [place], [address] RDW SD 46.0 fl High 35.1-43.9 [facility] Comment on above: Performed By: #### L 500.2500, L100.0100, L501.2300 #### [facility] [address] [place], [address] WBC (Bld) [#/Vol] 4.6 10*3/uL Normal 4.4-11.0 [facility] Comment on above: Performed By: #### L 500.2500, L100.0100, L501.2300 #### [facility] [address] [place], [address] Carbon dioxide measurementOr dered By: Razia Maya on 09-19-2024 CO2 [Moles/Vol] 24.0 mmol/L 21.0-32.0 [facility] Chloride measurementOrdered By: Razia Maya on 09-19-2024 Chloride [Moles/Vol] 109 mmol/L High 98-107 [facility] Eosinophil percentageOrdered By: Razia Maya on 09-19-2024 Eosinophils/100 WBC (Bld) 2.4 % 0-5 [facility] Erythrocyte distribution wid th ratioOrdered By: Razia Maya on 09-19-2024 Erythrocyte distribution width (RBC) [Ratio] 14.3 % 11.6-14.6 [facility] Erythrocyte distribution wid th standard deviationOrdered By: Razia Maya on 09-19-2024 Erythrocyte distribution width (RBC) [Entitic vol] 46.0 fL High 35.1-43.9 [facility] Estimated glomerular filtrat ion rate (GFR) AmericanOrdered By: Razia Maya on 09-19-2024 Estimated GFR (MDRD) Amer 60 mL/min >60 [facility] Comment on above: GFR Calc Glomerular filtration rate ( GFR) estimationOrdered By: Razia Maya on 09-19-2024 Estimated GFR (MDRD) Non-Af Amer 50 mL/min Low >60 [facility] Comment on above: Non- GFR Calc Glucose measurementOrdered B y: Razia Maya on 09-19-2024 Glucose [Mass/Vol] 118 mg/dL High 74-106 [facility] Comment on above: Fasting Glucose resu lt from 100 to 125 mg/dL suggests IMPAIRED HOMEOSTASIS per A.D.A. criteria. Hematocrit Auto (Bld) [Volum e fraction]Ordered By: Razia Myaa on 09-19-2024 Hematocrit (Bld) [Volume fraction] 30.6 % Low 40-54 [facility] Hemoglobin measurementOrdere d By: Razia Maya on 09-19-2024 Hemoglobin (Bld) [Mass/Vol] 10.4 g/dL Low 13.0-16.5 [facility] Immature granulocytes/100 WB C Auto (Bld)Ordered By: Razia Maya on 09-19-2024 Immature granulocytes/100 WBC (Bld) 0.400 % 0.0-0.9 [facility] Comment on above: IG% - Immature Granu locytes (promyelocytes, myelocytes and metamyelocytes) > 1% indicates that a LEFT SHIFT is Present. Lymphocytes Auto (Unsp spec) [#/Vol]Ordered By: Razia Maya on 09-19-2024 Lymphocytes (Bld) [#/Vol] 0.89 10*3/uL 0.83-4.51 [facility] Lymphocytes/100 WBC Auto (Un sp spec)Ordered By: Razia Maya on 09-19-2024 Lymphocytes/100 WBC (Bld) 19.2 % 19-41 [facility] MCV (mean corpuscular volume ) determinationOrdered By: Razia Maya on 09-19-2024 MCV (RBC) [Entitic vol] 89.2 fL 80-94 [facility] Mean corpuscular hemoglobin (MCH) determinationOrdered By: Razia Maya on 09-19-2024 MCH (RBC) [Entitic mass] 30.3 pg 27.0-32.0 [facility] Mean corpuscular hemoglobin concentration (MCHC) determinationOrdered By: Razia Maya on 09-19-2024 MCHC (RBC) [Mass/Vol] 34.0 g/dL 32-36 [facility] Mean platelet volume determi nationOrdered By: Razia Maya on 09-19-2024 Platelet mean volume (Bld) [Entitic vol] 11.4 fL 6.2-12.0 [facility] Monocyte percentageOrdered B y: Razia Maya on 09-19-2024 Monocytes/100 WBC (Bld) 8.2 % 0-10 [facility] Neutrophil percentageOrdered By: Razia Maya on 09-19-2024 Neutrophils/100 WBC (Bld) 69.4 % 47-70 [facility] Nucleated red blood cell per centageOrdered By: Razia Maya on 09-19-2024 Nucleated RBC/100 WBC (Bld) [Ratio] 0 % 0-5 [facility] Phosphoruson 09-19-2024 Phosphate [Mass/Vol] 3.3 mg/dL Normal 2.5-4.9 [facility] Comment on above: Performed By: #### L 500.2500, L100.0100, L501.2300 #### [facility] [address] [place], [address] Phosphorus measurementOrdere d By: Razia Maya on 09-19-2024 Phosphorus Level 3.3 mg/dL 2.5-4.9 [facility] Platelet countOrdered By: Gail Maya on 09-19-2024 Platelets (Bld) [#/Vol] 164 10*3/uL 150-450 [facility] Potassium measurementOrdered By: Razia Maya on 09-19-2024 Potassium [Moles/Vol] 4.9 mmol/L 3.5-5.1 [facility] Comment on above: Slight Hemolysis, Re sult may be falsely increased. RBC Auto (Bld) [#/Vol]Ordere d By: Razia Maya on 09-19-2024 RBC (Bld) [#/Vol] 3.43 10*6/uL Low 4.6-6.2 [facility] Serum anion gap measurementO rdered By: Razia Maya on 09-19-2024 Anion gap [Moles/Vol] 6 mmol/L 5-15 [facility] Serum or plasma calcium mariano urement (mass/volume)Ordered By: Razia Maya on 09-19-2024 Calcium [Mass/Vol] 8.9 mg/dL 8.5-10.1 [facility] Serum or plasma creatinine m easurement (mass/volume)Ordered By: Razia Maya on 09-19-2024 Creatinine [Mass/Vol] 1.47 mg/dL High 0.70-1.30 [facility] Comment on above: The validity of the calculated GFR & GFRAA in patients over 70 years has not been determined. Clinical correlation is essential. Serum or plasma urea nitroge n measurement (mass/volume)Ordered By: Razia Maya on 09-19-2024 Urea nitrogen [Mass/Vol] 44 mg/dL High 7-18 [facility] Sodium levelOrdered By: Razia Maya on 09-19-2024 Sodium [Moles/Vol] 139 mmol/L 136-145 [facility] White blood cell (WBC) count Ordered By: Razia Maya on 09-19-2024 WBC (Bld) [#/Vol] 4.6 10*3/uL 4.4-11.0 [facility] Lipid Profileon 06-30-2024 Cholesterol [Mass/Vol] 209 mg/dL High 200 [facility] Comment on above: Result Comment: <200 mg/dL Desirable 200-240 mg/dL Borderline >240 mg/dL High Risk Performed By: #### L 500.4100, L501.9910, L501.1400 #### [facility] [address] [facility] [address] Cholesterol in HDL [Mass/Vol] 36 mg/dL Low [facility] Comment on above: Result Comment: The drugs N-Acetylcysteine and Metamizole may falsely depress this assay. Reference Range HDL <40 mg/dL Low HDL Cholesterol HDL >or= 60 mg/dL High HDL Cholesterol Performed By: #### L 500.4100, L501.9910, L501.1400 #### [facility] [address] [place], [address] Cholesterol in LDL [Mass/Vol] 133 mg/dL High 0-130 [facility] Comment on above: Performed By: #### L 500.4100, L501.9910, L501.1400 #### [facility] [address] [facility] [address] Cholesterol in VLDL [Mass/Vol] 40 mg/dL Normal 5-40 [facility] Comment on above: Performed By: #### L 500.4100, L501.9910, L501.1400 #### [facility] [address] [place], [address] ( Triglyceride [Mass/Vol] 199 mg/dL Normal [facility] Comment on above: Result Comment: The drugs N-Acetylcysteine and Metamizole may falsely depress this assay. Serum Triglycerides Reference Interval Normal <150 mg/dL Borderline high 150 - 199 mg/dL High 200 - 499 mg/dL Very High > or = 500 mg/dL Performed By: #### L 500.4100, L501.9910, L501.1400 #### [facility] [address] [place], [address] PSA,Total - Annual Screenon 06-30-2024 PSA,TOT SCREEN 0.79 ng/mL Normal 0.00-4.00 [facility] Comment on above: Result Comment: This test was performed using the TPSA assay method for the [employer] chemistry system. Values obtained with different assay methods cannot be used interchangably. When changing PSA assays in the course of monitoring a patient, additional sequential testing should be carried out to confirm baseline values. Performed By: #### P SUIII #### [facility] [address] [place], [address] Uric Acidon 06-30-2024 URIC 9.2 mg/dL High 3.5-7.2 [facility] Comment on above: Result Comment: The drugs N-Acetylcysteine and Metamizole may falsely depress this assay. Performed By: #### P SUIII #### [facility] [address] [place], [place], [address] Basic Metabolic Profile (BMP )on 06-23-2024 BUN/CRE 33.6 RATIO High 06-19 [facility] Comment on above: Performed By: #### P SUIII #### [facility] [address] [place], [address] CA,Total 9.0 mg/dL Normal 8.5-10.1 [facility] Comment on above: Performed By: #### P SUIII #### [facility] [address] [place], [address] Chloride [Moles/Vol] 111 mmol/L High 98-107 [facility] Comment on above: Performed By: #### P SUIII #### [facility] [address] [place], [address] CO2 [Moles/Vol] 22.0 mmol/L Normal 21.0-32.0 [facility] Comment on above: Performed By: #### P SUIII #### [facility] [address] [place], [address] Creatinine [Mass/Vol] 1.43 mg/dL High 0.70-1.30 [facility] Comment on above: Result Comment: The validity of the calculated GFR GFRAA in patients over 70 years has not been determined. Clinical correlation is essential. Performed By: #### P SUIII #### [facility] [address] [place], [address] EST GFR - AA 62 mL/min Normal >60 [facility] Comment on above: Result Comment: Afri can Ivorian GFR Calc Performed By: #### P SUIII #### [facility] [address] [place], [address] GAP 5 Normal 5-15 [facility] Comment on above: Performed By: #### P SUIII #### [facility] [address] [place], [address] GFR/1.73 sq M.predicted among non-blacks MDRD (S/P/Bld) [Vol rate/Area] 51 mL/min/{1.73_m2} Low >60 [facility] Comment on above: Result Comment: Non- GFR Calc Performed By: #### P SUIII #### [facility] [address] [place], [address] Glucose [Mass/Vol] 109 mg/dL High 74-106 [facility] Comment on above: Result Comment: Fast ing Glucose result from 100 to 125 mg/dL suggests IMPAIRED HOMEOSTASIS per A.D.A. criteria. Performed By: #### P SUIII #### [facility] [address] [place], [address] Potassium [Moles/Vol] 5.0 mmol/L Normal 3.5-5.1 [facility] Comment on above: Performed By: #### P SUIII #### [facility] [address] [place], [address] Sodium [Moles/Vol] 138 mmol/L Normal 136-145 [facility] Comment on above: Performed By: #### P SUIII #### [facility] [address] [place], [address] Urea nitrogen [Mass/Vol] 48 mg/dL High 7-18 [facility] Comment on above: Performed By: #### P SUIII #### [facility] [address] [place], [address] CBC W/Diff, Automatedon 10-2 -2023 Absolute Lymph 0.80 X10 3/uL Low 0.83-4.51 [facility] Comment on above: Performed By: #### P SUIII #### [facility] [address] [place], [address] Absolute Neut 3.3 X10 3/uL Normal 2.0-7.7 [facility] Comment on above: Performed By: #### P SUIII #### [facility] [address] [place], [address] Basophils/100 WBC (Bld) 0.6 % Normal 0-1 [facility] Comment on above: Performed By: #### P SUIII #### [facility] [address] [place], [address] Eosinophils/100 WBC (Bld) 2.6 % Normal 0-5 [facility] Comment on above: Performed By: #### P SUIII #### [facility] [address] [place], [address] Erythrocyte distribution width (RBC) [Ratio] 13.7 % Normal 11.6-14.6 [facility] Comment on above: Performed By: #### P SUIII #### [facility] [address] [place], [address] Hematocrit (Bld) [Volume fraction] 29.6 % Low 40-54 [facility] Comment on above: Performed By: #### P SUIII #### [facility] [address] [place], [address] Hemoglobin (Bld) [Mass/Vol] 10.1 g/dL Low 13.0-16.5 [facility] Comment on above: Performed By: #### P SUIII #### [facility] [address] [place], [address] IG% 0.600 Normal 0.0-0.9 [facility] Comment on above: Result Comment: IG% - Immature Granulocytes (promyelocytes, myelocytes and metamyelocytes) > 1% indicates that a LEFT SHIFT is Present. Performed By: #### P SUIII #### [facility] [address] [place], [address] Lymphocytes/100 WBC (Bld) 17.2 % Low 19-41 [facility] Comment on above: Performed By: #### P SUIII #### [facility] [address] [place], [address] MCH (RBC) [Entitic mass] 31.1 pg Normal 27.0-32.0 [facility] Comment on above: Performed By: #### P SUIII #### [facility] [address] [place], [address] MCHC (RBC) [Mass/Vol] 34.1 g/dL Normal 32-36 [facility] Comment on above: Performed By: #### P SUIII #### [facility] [address] [place], [address] MCV (RBC) [Entitic vol] 91.1 fL Normal 80-94 [facility] Comment on above: Performed By: #### P SUIII #### [facility] [address] [place], [address] Monocytes/100 WBC (Bld) 9.2 % Normal 0-10 [facility] Comment on above: Performed By: #### P SUIII #### [facility] [place], [address] Neutrophils/100 WBC (Bld) 69.8 % Normal 47-70 [facility] Comment on above: Performed By: #### P SUIII #### [facility] [address] [place], [address] Nucleated RBC (Bld) [#/Vol] 0 10*3/uL Normal 0-5 [facility] Comment on above: Performed By: #### P SUIII #### [facility] [address] [place], [address] Platelet mean volume (Bld) [Entitic vol] 10.6 fL Normal 6.2-12.0 [facility] Comment on above: Performed By: #### P SUIII #### [facility] [address] [place], [address] Platelets (Bld) [#/Vol] 140 10*3/uL Low 150-450 [facility] Comment on above: Performed By: #### P SUIII #### [facility] [address] [place], [address] RBC (Bld) [#/Vol] 3.25 10*6/uL Low 4.6-6.2 [facility] Comment on above: Performed By: #### P SUIII #### [facility] [address] [place], [address] RDW SD 45.3 fl High 35.1-43.9 [facility] Comment on above: Performed By: #### P SUIII #### [facility] [address] [place], [address] WBC (Bld) [#/Vol] 4.7 10*3/uL Normal 4.4-11.0 [facility] Comment on above: Performed By: #### P SUIII #### [facility] [address] [place], [address] Phosphoruson 06-23-2024 Phosphate [Mass/Vol] 3.8 mg/dL Normal 2.5-4.9 [facility] Comment on above: Performed By: #### P SUIII #### [facility] [address] [place], [address] Basic Metabolic Profile (BMP )on 04-12-2024 BUN/CRE 29.8 RATIO High 10-20 [facility] Comment on above: Performed By: #### P SUIII #### [facility] [address] [place], [address] CA,Total 9.0 mg/dL Normal 8.5-10.1 [facility] Comment on above: Performed By: #### P SUIII #### [facility] [address] [place], [address] Chloride [Moles/Vol] 105 mmol/L Normal 98-107 [facility] Comment on above: Performed By: #### P SUIII #### [facility] [address] [place], [address] CO2 [Moles/Vol] 27.0 mmol/L Normal 21.0-32.0 [facility] Comment on above: Performed By: #### P SUIII #### [facility] [address] [place], [address] Creatinine [Mass/Vol] 1.51 mg/dL High 0.70-1.30 [facility] Comment on above: Result Comment: The validity of the calculated GFR GFRAA in patients over 70 years has not been determined. Clinical correlation is essential. Performed By: #### P SUIII #### [facility] [address] [place], [address] EST GFR - AA 59 mL/min Low >60 [facility] Comment on above: Result Comment: Afri can Ivorian GFR Calc Performed By: #### P SUIII #### [facility] [address] [place], [address] GAP 6 Normal 5-15 [facility] Comment on above: Performed By: #### P SUIII #### [facility] [address] [place], [address] GFR/1.73 sq M.predicted among non-blacks MDRD (S/P/Bld) [Vol rate/Area] 48 mL/min/{1.73_m2} Low >60 [facility] Comment on above: Result Comment: Non- GFR Calc Performed By: #### P SUIII #### [facility] [address] [place], [address] Glucose [Mass/Vol] 107 mg/dL High 74-106 [facility] Comment on above: Result Comment: Fast ing Glucose result from 100 to 125 mg/dL suggests IMPAIRED HOMEOSTASIS per A.D.A. criteria. Performed By: #### P SUIII #### [facility] [address] [place], [address] Potassium [Moles/Vol] 5.3 mmol/L High 3.5-5.1 [facility] Comment on above: Performed By: #### P SUIII #### [facility] [address] [place], [address] Sodium [Moles/Vol] 138 mmol/L Normal 136-145 [facility] Comment on above: Performed By: #### P SUIII #### [facility] [address] [place], [address] Urea nitrogen [Mass/Vol] 45 mg/dL High 7-18 [facility] Comment on above: Performed By: #### P SUIII #### [facility] [address] [place], [address] Phosphoruson 04-12-2024 Phosphate [Mass/Vol] 4.4 mg/dL Normal 2.5-4.9 [facility] Comment on above: Performed By: #### P SUIII #### [facility] [address] [place], [place], [address] ECHOon 04-01-2024 Echocardiography Echocardiography Rep ort: [facility] Date of service: 04/01/2024 2:44:04 PM Ordering physician: MILENA HERMAN Indication: Re-evaluation of known Heart Failure with a change in clinical status/exam with a clear precipitating change in diet or medication Technologist: Merly Romero [facility] Interpreting physician: Orlando Pugh MD PATIENT: Name: [...] and the dimensio (more content not included)... [facility] 03-31-2024 [facility] SCARCAROLYN ([id number]) 1950 M [facility] Date Time Provider Department 03/31/24 MILENA HERMAN During your visit today, we recorded the following information about you: Imelda Morse 03/31/2024 9:46 AM Signed LM for [...] day. 100mg AM and 150mg PM - ywdoyvqdu-emzhfrsh-zmamokeo ne (STALEVO 200) 50-200-200 mg per tablet Take [...] (heart failure) (HCC) [I50*10/16/2022 Encounter Status:Closed by IMELDA MORSE on 03/31/24 Normal [facility] Basic Metabolic Profile (BMP )on 03-21-2024 BUN/CRE 34.1 RATIO High 10-20 [facility] Comment on above: Performed By: #### L 500.2500, L100.0100 #### [facility] [address] [place], [address] CA,Total 9.0 mg/dL Normal 8.5-10.1 [facility] Comment on above: Performed By: #### L 500.2500, L100.0100 #### [facility] [address] [place], [address] Chloride [Moles/Vol] 105 mmol/L Normal 98-107 [facility] Comment on above: Performed By: #### L 500.2500, L100.0100 #### [facility] [address] [place], [address] CO2 [Moles/Vol] 26.0 mmol/L Normal 21.0-32.0 [facility] Comment on above: Performed By: #### L 500.2500, L100.0100 #### [facility] [address] [place], [address] Creatinine [Mass/Vol] 1.76 mg/dL High 0.70-1.30 [facility] Comment on above: Result Comment: The validity of the calculated GFR GFRAA in patients over 70 years has not been determined. Clinical correlation is essential. Performed By: #### L 500.2500, L100.0100 #### [facility] [address] [place], [address] EST GFR - AA 49 mL/min Low >60 [facility] Comment on above: Result Comment: Afri can Ivorian GFR Calc Performed By: #### L 500.2500, L100.0100 #### [facility] [address] [place], [address] GAP 7 Normal 5-15 [facility] Comment on above: Performed By: #### L 500.2500, L100.0100 #### [facility] [address] [place], [address] GFR/1.73 sq M.predicted among non-blacks MDRD (S/P/Bld) [Vol rate/Area] 41 mL/min/{1.73_m2} Low >60 [facility] Comment on above: Result Comment: Non- GFR Calc Performed By: #### L 500.2500, L100.0100 #### [facility] [address] [place], [address] Glucose [Mass/Vol] 98 mg/dL Normal 74-106 [facility] Comment on above: Performed By: #### L 500.2500, L100.0100 #### [facility] [address] [place], [address] Potassium [Moles/Vol] 5.3 mmol/L High 3.5-5.1 [facility] Comment on above: Performed By: #### L 500.2500, L100.0100 #### [facility] [address] [place], [address] Sodium [Moles/Vol] 138 mmol/L Normal 136-145 [facility] Comment on above: Performed By: #### L 500.2500, L100.0100 #### [facility] [address] [place], [address] Urea nitrogen [Mass/Vol] 60 mg/dL High 7-18 [facility] Comment on above: Performed By: #### L 500.2500, L100.0100 #### [facility] [address] [place], [address] CBC W/Diff, Automatedon 03-01 Absolute Lymph 0.90 X10 3/uL Normal 0.83-4.51 [facility] Comment on above: Performed By: #### L 500.2500, L100.0100 #### [facility] [address] [place], [address] Absolute Neut 3.2 X10 3/uL Normal 2.0-7.7 [facility] Comment on above: Performed By: #### L 500.2500, L100.0100 #### [facility] [address] [place], [address] Basophils/100 WBC (Bld) 1.0 % Normal 0-1 [facility] Comment on above: Performed By: #### L 500.2500, L100.0100 #### [facility] [address] [place], [address] Eosinophils/100 WBC (Bld) 2.1 % Normal 0-5 [facility] Comment on above: Performed By: #### L 500.2500, L100.0100 #### [facility] [address] [place], [address] Erythrocyte distribution width (RBC) [Ratio] 13.5 % Normal 11.6-14.6 [facility] Comment on above: Performed By: #### L 500.2500, L100.0100 #### [facility] [address] [place], [address] Hematocrit (Bld) [Volume fraction] 30.2 % Low 40-54 [facility] Comment on above: Performed By: #### L 500.2500, L100.0100 #### [facility] [address] [place], [address] Hemoglobin (Bld) [Mass/Vol] 10.2 g/dL Low 13.0-16.5 [facility] Comment on above: Performed By: #### L 500.2500, L100.0100 #### [facility] [address] [place], [address] IG% 0.600 Normal 0.0-0.9 [facility] Comment on above: Result Comment: IG% - Immature Granulocytes (promyelocytes, myelocytes and metamyelocytes) > 1% indicates that a LEFT SHIFT is Present. Performed By: #### L 500.2500, L100.0100 #### [facility] [address] [place], [address] Lymphocytes/100 WBC (Bld) 18.8 % Low 19-41 [facility] Comment on above: Performed By: #### L 500.2500, L100.0100 #### [facility] [address] [place], [address] MCH (RBC) [Entitic mass] 31.0 pg Normal 27.0-32.0 [facility] Comment on above: Performed By: #### L 500.2500, L100.0100 #### [facility] [address] [place], [address] MCHC (RBC) [Mass/Vol] 33.8 g/dL Normal 32-36 [facility] Comment on above: Performed By: #### L 500.2500, L100.0100 #### [facility] [address] [place], [address] MCV (RBC) [Entitic vol] 91.8 fL Normal 80-94 [facility] Comment on above: Performed By: #### L 500.2500, L100.0100 #### [facility] [address] [place], [address] Monocytes/100 WBC (Bld) 10.0 % Normal 0-10 [facility] Comment on above: Performed By: #### L 500.2500, L100.0100 #### [facility] [address] [place], [address] Neutrophils/100 WBC (Bld) 67.5 % Normal 47-70 [facility] Comment on above: Performed By: #### L 500.2500, L100.0100 #### [facility] [address] [place], [address] Nucleated RBC (Bld) [#/Vol] 0 10*3/uL Normal 0-5 [facility] Comment on above: Performed By: #### L 500.2500, L100.0100 #### [facility] [address] [place], [address] Platelet mean volume (Bld) [Entitic vol] 11.1 fL Normal 6.2-12.0 [facility] Comment on above: Performed By: #### L 500.2500, L100.0100 #### [facility] [address] [place], [address] Platelets (Bld) [#/Vol] 164 10*3/uL Normal 150-450 [facility] Comment on above: Performed By: #### L 500.2500, L100.0100 #### [facility] [address] [place], [address] RBC (Bld) [#/Vol] 3.29 10*6/uL Low 4.6-6.2 [facility] Comment on above: Performed By: #### L 500.2500, L100.0100 #### [facility] [address] [place], [address] RDW SD 45.3 fl High 35.1-43.9 [facility] Comment on above: Performed By: #### L 500.2500, L100.0100 #### [facility] [address] [place], [address] WBC (Bld) [#/Vol] 4.8 10*3/uL Normal 4.4-11.0 [facility] Comment on above: Performed By: #### L 500.2500, L100.0100 #### [facility] [address] [place], [address] .Auto Diffon 12-22-2023 Basophil, Absolute 0.1 10 3/mcL Normal 0.0-0.3 [facility] ([place]) Comment on above: Performed By: #### M ORPH, GFR, CBC, ANEU, RFP, ADIFF #### [address] [address] Basophils/100 WBC (Bld) 1.2 % Normal 0.0-2.5 [facility] ([place]) Comment on above: Performed By: #### M ORPH, GFR, CBC, ANEU, RFP, ADIFF #### [address] [address] Eosinophil, Absolute 0.2 10 3/mcL Normal 0.0-0.7 [facility] ([place]) Comment on above: Performed By: #### M ORPH, GFR, CBC, ANEU, RFP, ADIFF #### [address] [address] Eosinophils/100 WBC (Bld) 2.6 % Normal 0.0-6.0 [facility] ([place] Comment on above: Performed By: #### M ORPH, GFR, CBC, ANEU, RFP, ADIFF #### [address] [address] Lymphocyte, Absolute 1.4 10 3/mcL Normal 0.9-4.3 [facility] ([place]) Comment on above: Performed By: #### M ORPH, GFR, CBC, ANEU, RFP, ADIFF #### [address] [address] Lymphocytes/100 WBC (Bld) 24.3 % Normal 20.0-40.0 [facility] ([place] Comment on above: Performed By: #### M ORPH, GFR, CBC, ANEU, RFP, ADIFF #### [address] [address] Monocyte, Absolute 0.5 10 3/mcL Normal 0.1-1.4 [facility] ([place]) Comment on above: Performed By: #### M ORPH, GFR, CBC, ANEU, RFP, ADIFF #### [address] [address] Monocytes/100 WBC (Bld) 8.5 % Normal 2.0-13.0 [facility] ([place] Comment on above: Performed By: #### M ORPH, GFR, CBC, ANEU, RFP, ADIFF #### [address] [address] Neutrophils/100 WBC (Bld) 63.4 % Normal 50.0-75.0 [facility] ([place] Comment on above: Performed By: #### M ORPH, GFR, CBC, ANEU, RFP, ADIFF #### [address] [address] .GFRon 12-22-2023 GFR 57 ml/min/1.73sqm Normal [facility] ([place] Comment on above: Result Comment: GFR Population [...] ORPH, GFR, CBC, ANEU, RFP, ADIFF #### [address] [address] GFR Non- 47 ml/min/1.73sqm Normal [facility] ([place] Comment on above: Result Comment: GFR Population [...] ORPH, GFR, CBC, ANEU, RFP, ADIFF #### [place] [address] .Morphon 12-22-2023 Platelet Estimate Normal Normal [facility] ([place] Comment on above: Performed By: #### M ORPH, GFR, CBC, ANEU, RFP, ADIFF #### [place] [address] RBC morphology finding Nom (Bld) See Below Normal [facility] ([place]) Comment on above: Result Comment: RBC Morphology appears Normal Performed By: #### M ORPH, GFR, CBC, ANEU, RFP, ADIFF #### [address] [address] .NEUABSon 12-22-2023 Neutrophil, Absolute 3.8 10 3/mcL Normal 2.3-8.1 [facility] ([place]) Comment on above: Performed By: #### M ORPH, GFR, CBC, ANEU, RFP, ADIFF #### [place] [address] CBCon 12-22-2023 Erythrocyte distribution width (RBC) [Ratio] 14.4 % Normal 11.5-15.5 [facility] ([place] Comment on above: Performed By: #### M ORPH, GFR, CBC, ANEU, RFP, ADIFF #### [place] [address] Hematocrit (Bld) [Volume fraction] 31.2 % Low 40.0-52.0 [facility] ([place] Comment on above: Performed By: #### M ORPH, GFR, CBC, ANEU, RFP, ADIFF #### [place] [address] Hgb 11.1 G/dL Low 13.0-17.5 [facility] ([place] Comment on above: Performed By: #### M ORPH, GFR, CBC, ANEU, RFP, ADIFF #### [place] [address] MCH (RBC) [Entitic mass] 32.4 pg Normal 27.0-33.0 [facility] ([place] Comment on above: Performed By: #### M ORPH, GFR, CBC, ANEU, RFP, ADIFF #### [place] [address] MCHC 35.5 G/dL Normal 32.0-36.0 [facility] ([place] Comment on above: Performed By: #### M ORPH, GFR, CBC, ANEU, RFP, ADIFF #### [place] [id number] MCV (RBC) [Entitic vol] 91.2 fL Normal 81.0-100.0 [facility] ([place] Comment on above: Performed By: #### M ORPH, GFR, CBC, ANEU, RFP, ADIFF #### [place] [id number] Platelet 178 10 3/mcL Normal 150-450 [facility] ([place] Comment on above: Performed By: #### M ORPH, GFR, CBC, ANEU, RFP, ADIFF #### [place] [address] Platelet mean volume (Bld) [Entitic vol] 9.3 fL Normal 6.4-10.5 [facility] ([place] Comment on above: Performed By: #### M ORPH, GFR, CBC, ANEU, RFP, ADIFF #### [address] [address] RBC 3.42 10 6/mcL Low 4.50-6.00 [facility] ([place] Comment on above: Performed By: #### M ORPH, GFR, CBC, ANEU, RFP, ADIFF #### [address] [address] WBC 5.9 10 3/mcL Normal 4.5-10.8 [facility] ([place] Comment on above: Performed By: #### M ORPH, GFR, CBC, ANEU, RFP, ADIFF #### [address] [address] RFPon 12-22-2023 Albumin Level 3.9 G/dL Normal 3.2-4.8 [facility] ([place] Comment on above: Performed By: #### M ORPH, GFR, CBC, ANEU, RFP, ADIFF #### [address] [address] BUN/Creatinine Ratio 34.2 ratio High 10.0-22.0 [facility] ([place]) Comment on above: Performed By: #### M ORPH, GFR, CBC, ANEU, RFP, ADIFF #### [address] [address] Calcium [Mass/Vol] 9.3 mg/dL Normal 8.7-10.4 [facility] ([place]) Comment on above: Performed By: #### M ORPH, GFR, CBC, ANEU, RFP, ADIFF #### [address] [address] Chloride [Moles/Vol] 108 mmol/L Normal 98-110 [facility] ([place]) Comment on above: Performed By: #### M ORPH, GFR, CBC, ANEU, RFP, ADIFF #### [address] [address] CO2 [Moles/Vol] 25 mmol/L Normal 22-32 [facility] ([place] Comment on above: Performed By: #### M ORPH, GFR, CBC, ANEU, RFP, ADIFF #### [address] [address] Creatinine [Mass/Vol] 1.46 mg/dL High 0.60-1.40 [facility] ([place]) Comment on above: Performed By: #### M ORPH, GFR, CBC, ANEU, RFP, ADIFF #### [address] [address] Electrolyte Balance 4.0 mEq/L Normal 4.0-15.0 [facility] ([place]) Comment on above: Performed By: #### M ORPH, GFR, CBC, ANEU, RFP, ADIFF #### [address] [address] Glucose [Mass/Vol] 91 mg/dL Normal 82-115 [facility] ([place]) Comment on above: Performed By: #### M ORPH, GFR, CBC, ANEU, RFP, ADIFF #### [address] [address] Phosphate [Mass/Vol] 5.0 mg/dL Normal 2.4-5.1 [facility] ([place]) Comment on above: Result Comment: No te - New Reference Range in effect 20 Performed By: #### M ORPH, GFR, CBC, ANEU, RFP, ADIFF #### [address] [address] Potassium [Moles/Vol] 4.8 mmol/L Normal 3.5-5.0 [facility] ([place]) Comment on above: Performed By: #### M ORPH, GFR, CBC, ANEU, RFP, ADIFF #### [address] [address] Sodium [Moles/Vol] 137 mmol/L Normal 136-145 [facility] ([place]) Comment on above: Performed By: #### M ORPH, GFR, CBC, ANEU, RFP, ADIFF #### [address] [address] Urea nitrogen [Mass/Vol] 50.0 mg/dL High 8.0-22.0 [facility] ([place] Comment on above: Performed By: #### M ORPH, GFR, CBC, ANEU, RFP, ADIFF #### [place] [address] RPCURon 12-22-2023 U Creatinine 61.4 mg/dL Normal [facility] ([place] Comment on above: Performed By: #### M ORPH, GFR, CBC, ANEU, RFP, ADIFF #### [place] [address] U Protein 90.6 mg/dL Normal [facility] ([place] Comment on above: Performed By: #### M ORPH, GFR, CBC, ANEU, RFP, ADIFF #### [place] [id number] U Ratio Prot/Creat 1.5 ratio Normal [facility] ([place]) Comment on above: Result Comment: resu lt calculated by rule GL_UR_PROT_NOTCALC_OLD (U Protein/U Creatinine) Performed By: #### M ORPH, GFR, CBC, ANEU, RFP, ADIFF #### [place] [address] UAon 12-19-2023 Color (U) Yellow Normal [facility] ([place] Comment on above: Performed By: #### M ORPH, GFR, CBC, ANEU, RFP, ADIFF #### [place] [address] Glucose (U) [Mass/Vol] Negative Normal Negative [facility] ([place]) Comment on above: Performed By: #### M ORPH, GFR, CBC, ANEU, RFP, ADIFF #### [address] [address] Ketones Ql (U) Negative Normal Neg-Trace [facility] ([place] Comment on above: Performed By: #### M ORPH, GFR, CBC, ANEU, RFP, ADIFF #### [address] [address] UA Appear Clear Normal [facility] ([place] Comment on above: Performed By: #### M ORPH, GFR, CBC, ANEU, RFP, ADIFF #### [facility] [address] [place] [address] UA Blood Negative Normal Neg-Trace [facility] ([place] Comment on above: Performed By: #### M ORPH, GFR, CBC, ANEU, RFP, ADIFF #### [address] [address] UA Leuk Est Negative Normal Negative [facility] ([place] Comment on above: Performed By: #### M ORPH, GFR, CBC, ANEU, RFP, ADIFF #### [address] [address] UA Nitrite Negative Normal Negative [facility] ([place] Comment on above: Performed By: #### M ORPH, GFR, CBC, ANEU, RFP, ADIFF #### [place] [address] UA pH 6.0 Normal 5.0 - 8.0 [facility] ([place] Comment on above: Performed By: #### M ORPH, GFR, CBC, ANEU, RFP, ADIFF #### [place] [address] UA Protein 100 mg/dL Abnormal Negative [facility] ([place] Comment on above: Performed By: #### M ORPH, GFR, CBC, ANEU, RFP, ADIFF #### [place] [address] UA Spec Grav 1.020 Normal [facility] ([place] Comment on above: Performed By: #### M ORPH, GFR, CBC, ANEU, RFP, ADIFF #### [place] [address] UA Specimen Type Not Given Normal [facility] ([place] Comment on above: Performed By: #### M ORPH, GFR, CBC, ANEU, RFP, ADIFF #### [place] [id number] UA Urobilinogen 0.2 E.U./dL Normal [facility] ([place] Comment on above: Performed By: #### M ORPH, GFR, CBC, ANEU, RFP, ADIFF #### [place] [address] Urobilinogen (U) [Mass/Vol] Negative Normal Neg-Trace [facility] ([place] Comment on above: Performed By: #### M ORPH, GFR, CBC, ANEU, RFP, ADIFF #### [place] [address] UAMICon 12-19-2023 UA Bacteria Trace Abnormal Negative [facility] ([place] Comment on above: Performed By: #### M ORPH, GFR, CBC, ANEU, RFP, ADIFF #### [place] [address] UA Hyal Cast 0-2 Abnormal [facility] ([place] Comment on above: Performed By: #### M ORPH, GFR, CBC, ANEU, RFP, ADIFF #### [place] [address] UA Mucous Trace Normal [facility] ([place] Comment on above: Performed By: #### M ORPH, GFR, CBC, ANEU, RFP, ADIFF #### [place] [address] UA RBC 0-2 Normal 0-2 [facility] ([place] Comment on above: Performed By: #### M ORPH, GFR, CBC, ANEU, RFP, ADIFF #### [place] [address] UA Squam Epithelial 0-2 Normal 0-20 [facility] ([place]) Comment on above: Performed By: #### M ORPH, GFR, CBC, ANEU, RFP, ADIFF #### [place] [address] UA WBC 0-2 Normal 0-5 [facility] ([place] Comment on above: Performed By: #### M ORPH, GFR, CBC, ANEU, RFP, ADIFF #### [place] [id number] .GFRon 11-27-2023 GFR >60 Normal [facility] ([place]) Comment on above: Result Comment: GFR Population [...] ORPH, GFR, CBC, ANEU, RFP, ADIFF #### [address] [address] GFR Non- 56 ml/min/1.73sqm Normal [facility] ([place]) Comment on above: Result Comment: GFR Population [...] ORPH, GFR, CBC, ANEU, RFP, ADIFF #### [address] [address] [facility] 11-27-2023 BUN/Creatinine Ratio 33.3 ratio High 10.0-22.0 [facility] ([place]) Comment on above: Performed By: #### M ORPH, GFR, CBC, ANEU, RFP, ADIFF #### [address] [address] Calcium [Mass/Vol] 9.1 mg/dL Normal 8.7-10.4 [facility] ([place]) Comment on above: Performed By: #### M ORPH, GFR, CBC, ANEU, RFP, ADIFF #### [address] [address] Chloride [Moles/Vol] 111 mmol/L High 98-110 [facility] ([place]) Comment on above: Performed By: #### M ORPH, GFR, CBC, ANEU, RFP, ADIFF #### [address] [address] CO2 [Moles/Vol] 24 mmol/L Normal 22-32 [facility] ([place] Comment on above: Performed By: #### M ORPH, GFR, CBC, ANEU, RFP, ADIFF #### [address] [address] Creatinine [Mass/Vol] 1.26 mg/dL Normal 0.60-1.40 [facility] ([place]) Comment on above: Performed By: #### M ORPH, GFR, CBC, ANEU, RFP, ADIFF #### [address] [address] Electrolyte Balance 6.0 mEq/L Normal 4.0-15.0 [facility] ([place]) Comment on above: Performed By: #### M ORPH, GFR, CBC, ANEU, RFP, ADIFF #### [address] [address] Glucose [Mass/Vol] 108 mg/dL Normal 82-115 [facility] ([place]) Comment on above: Performed By: #### M ORPH, GFR, CBC, ANEU, RFP, ADIFF #### [address] [address] Potassium [Moles/Vol] 5.1 mmol/L High 3.5-5.0 [facility] ([place]) Comment on above: Performed By: #### M ORPH, GFR, CBC, ANEU, RFP, ADIFF #### [address] [address] Sodium [Moles/Vol] 141 mmol/L Normal 136-145 [facility] ([place]) Comment on above: Performed By: #### M ORPH, GFR, CBC, ANEU, RFP, ADIFF #### [address] [address] Urea nitrogen [Mass/Vol] 42.0 mg/dL High 8.0-22.0 [facility] ([place]) Comment on above: Performed By: #### M ORPH, GFR, CBC, ANEU, RFP, ADIFF #### [facility] [address] [place] [address] Absolute lymphocyte countOrd ered By: Razia Maya on 11-04-2023 Lymphocytes Auto (Unsp spec) [#/Vol] 1.03 10*3/uL 0.83-4.51 [facility] Aldolase ser/plasOrdered By: Razia Maya on 11-04-2023 Aldolase [Catalytic activity/Vol] 2.5 mU/mL 3.3-10.3 [facility] Comment on above: Performed at: [address] [id number] Director: Adolfo Jefferson PhD, Phone: [phone] Automated lymphocyte count a s percentage of total leukocytesOrdered By: Razia Maya on 11-04-2023 Lymphocytes/100 WBC Auto (Unsp spec) 18.4 % 19-41 [facility] Basophil percentageOrdered B y: Razia Maya on 11-04-2023 Basophils/100 WBC (Bld) 0.9 % 0-1 [facility] Eosinophils/100 WBC (Bld) 2.7 % 0-5 [facility] Hemoglobin (Bld) [Mass/Vol] 10.6 g/dL 13.0-16.5 [facility] Monocytes/100 WBC (Bld) 8.0 % 0-10 [facility] Neutrophils (Bld) [#/Vol] 3.9 10*3/uL 2.0-7.7 [facility] Neutrophils/100 WBC (Bld) 69.3 % 47-70 [facility] WBC (Bld) [#/Vol] 5.6 10*3/uL 4.4-11.0 [facility] Determination of erythrocyte mean corpuscular volume (MCV)Ordered By: Razia Maya on 11-04-2023 MCV (RBC) [Entitic vol] 90.6 fL 80-94 [facility] Erythrocyte distribution wid th ratioOrdered By: Razia Maya on 11-04-2023 Erythrocyte distribution width (RBC) [Ratio] 13.7 % 11.6-14.6 [facility] Erythrocyte distribution wid th standard deviationOrdered By: Razia Maya on 11-04-2023 Erythrocyte distribution width (RBC) [Entitic vol] 45.2 fL 35.1-43.9 [facility] Hematocrit Auto (Bld) [Volum e fraction]Ordered By: Razia Maya on 11-04-2023 Hematocrit (Bld) [Volume fraction] 31.0 % 40-54 [facility] Immature granulocytes/100 WB C Auto (Bld)Ordered By: Razia Maya on 11-04-2023 Immature granulocytes/100 WBC (Bld) 0.700 % 0.0-0.9 [facility] Comment on above: IG% - Immature Granu locytes (promyelocytes, myelocytes and metamyelocytes) > 1% indicates that a LEFT SHIFT is Present. Laboratory - Hematology and Cell countsOrdered By: Razia Maya on 11-04-2023 MCH (RBC) [Entitic mass] 31.0 pg 27.0-32.0 [facility] MCHC (RBC) [Mass/Vol] 34.2 g/dL 32-36 [facility] Nucleated RBC/100 WBC (Bld) [Ratio] 0 % 0-5 [facility] Platelet mean volume (Bld) [Entitic vol] 10.5 fL 6.2-12.0 [facility] Platelets (Bld) [#/Vol] 174 10*3/uL 150-450 [facility] No Panel InformationOrdered By: Razia Maya on 11-04-2023 MAGNOLIA-1 Antibody <0.2 AI 0.0-0.9 [facility] Comment on above: Performed at: [place] [id number] Director: Adolfo Jefferson PhD, Phone: [phone] RBC Auto (Bld) [#/Vol]Ordere d By: Razia Maya on 11-04-2023 RBC (Bld) [#/Vol] 3.42 10*6/uL 4.6-6.2 [facility] Review by pathologistOrdered By: Razia Maya on 11-04-2023 Pathologist review Abelardo (Unsp spec) [Interp] Reviewed [facility] Comment on above: Previous reported re sult: Cora may Edited by: TIMA on 11/06/23:0853Normocytic anemia.Clinical correlation necessary.Boston Cheung M.D. 11/06/23 AMENDED REPORT 11/06/23 0853 PATH REV previously reported as: Cora olvera Serum DNA double strand anti body assay (units/volume)Ordered By: Razia Maya on 11-04-2023 DNA double strand Ab Qn (S) [IU]/mL 0-9 [facility] Comment on above: Negative <5 Equivoca l 5 - 9 Positive >9 Serum or plasma cortisol rene surement (mass/volume)Ordered By: Razia Maya on 11-04-2023 Cortisol [Mass/Vol] 14.50 ug/dL 3.44-22.45 [facility] Comment on above: Adult (AM) 5.27 - 22 .45 ug/dL Adult (PM) 3.44 - 16.76 ug/dLPlease note revised CORTISOL reference range effective 2019. .Auto Diffon 10-27-2023 Basophil, Absolute 0.1 10 3/mcL Normal 0.0-0.3 [facility] ([place]) Comment on above: Performed By: #### M ORPH, GFR, CBC, ANEU, RFP, ADIFF #### [address] [address] Basophils/100 WBC (Bld) 1.3 % Normal 0.0-2.5 [facility] ([place]) Comment on above: Performed By: #### M ORPH, GFR, CBC, ANEU, RFP, ADIFF #### [address] [address] Eosinophil, Absolute 0.2 10 3/mcL Normal 0.0-0.7 [facility] ([place]) Comment on above: Performed By: #### M ORPH, GFR, CBC, ANEU, RFP, ADIFF #### [address] [address] Eosinophils/100 WBC (Bld) 3.3 % Normal 0.0-6.0 [facility] ([place]) Comment on above: Performed By: #### M ORPH, GFR, CBC, ANEU, RFP, ADIFF #### [address] [address] Lymphocyte, Absolute 1.0 10 3/mcL Normal 0.9-4.3 [facility] ([place]) Comment on above: Performed By: #### M ORPH, GFR, CBC, ANEU, RFP, ADIFF #### [address] [address] Lymphocytes/100 WBC (Bld) 21.0 % Normal 20.0-40.0 [facility] ([place] Comment on above: Performed By: #### M ORPH, GFR, CBC, ANEU, RFP, ADIFF #### [address] [address] Monocyte, Absolute 0.4 10 3/mcL Normal 0.1-1.4 [facility] ([place]) Comment on above: Performed By: #### M ORPH, GFR, CBC, ANEU, RFP, ADIFF #### [address] [address] Monocytes/100 WBC (Bld) 8.0 % Normal 2.0-13.0 [facility] ([place] Comment on above: Performed By: #### M ORPH, GFR, CBC, ANEU, RFP, ADIFF #### [address] [address] Neutrophils/100 WBC (Bld) 66.4 % Normal 50.0-75.0 [facility] ([place] Comment on above: Performed By: #### M ORPH, GFR, CBC, ANEU, RFP, ADIFF #### [address] [address] .GFRon 10-27-2023 GFR 49 ml/min/1.73sqm Normal [facility] ([place] Comment on above: Result Comment: GFR Population [...] ORPH, GFR, CBC, ANEU, RFP, ADIFF #### [address] [address] GFR Non- 40 ml/min/1.73sqm Normal [facility] ([place] Comment on above: Result Comment: GFR Population [...] ORPH, GFR, CBC, ANEU, RFP, ADIFF #### [address] [address] .MDWon 10-27-2023 Monocyte Distribution Width 17.64 Normal 0.00-20.00 [facility] ([place] Comment on above: Result Comment: For ED adult patients suspected of sepsis, MDW<=20.0 does not rule out sepsis or risk of sepsis Performed By: #### M ORPH, GFR, CBC, ANEU, RFP, ADIFF #### [address] [address] .NEUABSon 10-27-2023 Neutrophil, Absolute 3.0 10 3/mcL Normal 2.3-8.1 [facility] ([place]) Comment on above: Performed By: #### M ORPH, GFR, CBC, ANEU, RFP, ADIFF #### [address] [address] BMPon 10-27-2023 BUN/Creatinine Ratio 28 ratio High 7-27 [facility] ([place]) Comment on above: Performed By: #### M ORPH, GFR, CBC, ANEU, RFP, ADIFF #### [address] [address] Calcium [Mass/Vol] 8.9 mg/dL Normal 8.4-10.2 [facility] ([place]) Comment on above: Performed By: #### M ORPH, GFR, CBC, ANEU, RFP, ADIFF #### [address] [address] Chloride [Moles/Vol] 101 mmol/L Normal 98-107 [facility] ([place]) Comment on above: Performed By: #### M ORPH, GFR, CBC, ANEU, RFP, ADIFF #### [address] [address] CO2 [Moles/Vol] 28 mmol/L Normal 23-31 [facility] ([place] Comment on above: Performed By: #### M ORPH, GFR, CBC, ANEU, RFP, ADIFF #### [address] [address] Creatinine [Mass/Vol] 1.69 mg/dL High 0.70-1.30 [facility] ([place]) Comment on above: Performed By: #### M ORPH, GFR, CBC, ANEU, RFP, ADIFF #### [address] [address] Electrolyte Balance 8.0 mEq/L Normal 4.0-15.0 [facility] ([place]) Comment on above: Performed By: #### M ORPH, GFR, CBC, ANEU, RFP, ADIFF #### [address] [address] Glucose [Mass/Vol] 103 mg/dL Normal 83-110 [facility] ([place]) Comment on above: Performed By: #### M ORPH, GFR, CBC, ANEU, RFP, ADIFF #### [address] [address] Potassium [Moles/Vol] 4.4 mmol/L Normal 3.5-5.1 [facility] ([place]) Comment on above: Performed By: #### M ORPH, GFR, CBC, ANEU, RFP, ADIFF #### [address] [address] Sodium [Moles/Vol] 137 mmol/L Normal 136-145 [facility] ([place]) Comment on above: Performed By: #### M ORPH, GFR, CBC, ANEU, RFP, ADIFF #### [address] [address] Urea nitrogen [Mass/Vol] 47 mg/dL High 7-18 [facility] ([place] Comment on above: Performed By: #### M ORPH, GFR, CBC, ANEU, RFP, ADIFF #### [address] [address] CBCon 10-27-2023 Erythrocyte distribution width (RBC) [Ratio] 14.1 % Normal 11.5-15.5 [facility] ([place]) Comment on above: Performed By: #### T LUIS MYERS, DUDLEY, ANEU, ADIFF, CBC, GFR #### [address] [place], [place] [address] Hematocrit (Bld) [Volume fraction] 30.2 % Low 40.0-52.0 [facility] ([place] Comment on above: Performed By: #### T LUIS MYERS, DUDLEY, ANEU, ADIFF, CBC, GFR #### [facility] [address] [place], [place] [address] Hgb 10.7 G/dL Low 13.0-17.5 [facility] ([place] Comment on above: Performed By: #### T LUIS MYERS, DUDLEY, ANEU, ADIFF, CBC, GFR #### [address] [place], [place] [address] MCH (RBC) [Entitic mass] 31.5 pg Normal 27.0-33.0 [facility] ([place] Comment on above: Performed By: #### T LUIS MYERS, DUDLEY, ANEU, ADIFF, CBC, GFR #### [address] [place], [place] [address] MCHC 35.3 G/dL Normal 32.0-36.0 [facility] ([place] Comment on above: Performed By: #### T LUIS MYERS, DUDLEY, ANEU, ADIFF, CBC, GFR #### [address] [place], [place] [address] MCV (RBC) [Entitic vol] 89.3 fL Normal 81.0-100.0 [facility] ([place] Comment on above: Performed By: #### T LUIS MYERS, DUDLEY, ANEU, ADIFF, CBC, GFR #### [address] [place], [place] [address] Platelet 177 10 3/mcL Normal 150-450 [facility] ([place] Comment on above: Performed By: #### T LUIS MYERS, DUDLEY, ANEU, ADIFF, CBC, GFR #### [address] [place], [place] [address] Platelet mean volume (Bld) [Entitic vol] 7.8 fL Normal 6.4-10.5 [facility] ([place] Comment on above: Performed By: #### T LUIS MYERS, DUDLEY, ANEU, ADIFF, CBC, GFR #### [address] [place], [place] [address] RBC 3.39 10 6/mcL Low 4.50-6.00 [facility] ([place] Comment on above: Performed By: #### T LUIS MYERS, DUDLEY, ANEU, ADIFF, CBC, GFR #### [address] [place], [place] [address] WBC 4.6 10 3/mcL Normal 4.5-10.8 [facility] ([place] Comment on above: Performed By: #### T LUIS MYERS, DUDLEY, ANEU, ADIFF, CBC, GFR #### [address] [place], [place] [address] [facility] Troponin I High Sensitivity 10.1 ng/L Normal 0.0-76.2 [facility] ([place] Comment on above: Performed By: #### M ORPH, GFR, CBC, ANEU, RFP, ADIFF #### [place] [id number] [address] [place] [address] XR CHEST 1 VIEWon 10-27-2023 XR CHEST [...] PM Ordering Provider: LEONARDO Kamara [facility] ([place]) Absolute lymphocyte countOrd ered By: Razia Maya on 10-22-2023 Lymphocytes Auto (Unsp spec) [#/Vol] 0.89 10*3/uL 0.83-4.51 [facility] Automated lymphocyte count a s percentage of total leukocytesOrdered By: Razia Maya on 10-22-2023 Lymphocytes/100 WBC Auto (Unsp spec) 15.3 % 19-41 [facility] Basophil percentageOrdered B y: Razia Maya on 10-22-2023 Basophils/100 WBC (Bld) 0.7 % 0-1 [facility] Eosinophils/100 WBC (Bld) 2.4 % 0-5 [facility] Hemoglobin (Bld) [Mass/Vol] 10.3 g/dL 13.0-16.5 [facility] LDH [Catalytic activity/Vol] 245 U/L 87-241 [facility] Monocytes/100 WBC (Bld) 10.9 % 0-10 [facility] Neutrophils (Bld) [#/Vol] 4.1 10*3/uL 2.0-7.7 [facility] Neutrophils/100 WBC (Bld) 70.0 % 47-70 [facility] WBC (Bld) [#/Vol] 5.8 10*3/uL 4.4-11.0 [facility] Determination of erythrocyte mean corpuscular volume (MCV)Ordered By: Razia Maya on 10-22-2023 MCV (RBC) [Entitic vol] 93.9 fL 80-94 [facility] Erythrocyte distribution wid th ratioOrdered By: Razia Maya on 10-22-2023 Erythrocyte distribution width (RBC) [Ratio] 13.9 % 11.6-14.6 [facility] Erythrocyte distribution wid th standard deviationOrdered By: Razia Maya on 10-22-2023 Erythrocyte distribution width (RBC) [Entitic vol] 47.0 fL 35.1-43.9 [facility] Erythrocyte sedimentation ra teOrdered By: Razia Maya on 10-22-2023 ESR (Bld) [Velocity] 13 mm/h 0-20 [facility] Hematocrit Auto (Bld) [Volum e fraction]Ordered By: Razia Maya on 10-22-2023 Hematocrit (Bld) [Volume fraction] 30.8 % 40-54 [facility] Immature granulocytes/100 WB C Auto (Bld)Ordered By: Razia Maya on 10-22-2023 Immature granulocytes/100 WBC (Bld) 0.700 % 0.0-0.9 [facility] Comment on above: IG% - Immature Granu locytes (promyelocytes, myelocytes and metamyelocytes) > 1% indicates that a LEFT SHIFT is Present. Iron measurement (mass/mass) Ordered By: Razia Maya on 10-22-2023 Iron (Unsp spec) [Mass/Mass] 39 ug/dL 65-175 [facility] Laboratory - Chemistry and C hemistry - challengeOrdered By: Razia Maya on 10-22-2023 CK [Catalytic activity/Vol] 101 U/L 39-308 [facility] Cobalamin (Vitamin B12) [Mass/Vol] 997 pg/mL 211-911 [facility] Ferritin [Mass/Vol] 111 ng/mL 26-388 [facility] Laboratory - Hematology and Cell countsOrdered By: Razia Maya on 10-22-2023 MCH (RBC) [Entitic mass] 31.4 pg 27.0-32.0 [facility] MCHC (RBC) [Mass/Vol] 33.4 g/dL 32-36 [facility] Nucleated RBC/100 WBC (Bld) [Ratio] 0 % 0-5 [facility] Platelet mean volume (Bld) [Entitic vol] 11.1 fL 6.2-12.0 [facility] Platelets (Bld) [#/Vol] 157 10*3/uL 150-450 [facility] No Panel InformationOrdered By: Razia Maya on 10-22-2023 Anti-Nuclear Antibody Screen Negative Negative [facility] Comment on above: Performed at: [facility] [address] [id number] Director: Adolfo Jefferson PhD, Phone: [phone] C-Reactive Protein Extended Range 20.00 mg/L 0.0-3.0 [facility] Comment on above: C-Reactive Protein ( CRP) provides useful information for thediagnosis, therapy and monitoring of inflammatory processesand associated diseases. For the evaluation of Relative Riskfor Cardiovascular Disease, a High Sensitivity CRP (HSCRP)should be ordered. Centromere B Antibody Not Reportable [facility] MAGNOLIA-1 Antibody Not Reportable [facility] LAP CUTTER TRUER OPERATOR Antibody Not Reportable [facility] SM Antibody Not Reportable [facility] SS-A/Ro IgG Antibody Not Reportable [facility] SS-B/La IgG Antibody Not Reportable [facility] RBC Auto (Bld) [#/Vol]Ordere d By: Razia Maya on 10-22-2023 RBC (Bld) [#/Vol] 3.28 10*6/uL 4.6-6.2 [facility] Serum DNA double strand anti body assay (units/volume)Ordered By: Razia Maya on 10-22-2023 DNA double strand Ab Qn (S) Not Reportable [facility] Serum Scl-70 antibody assay (units/volume)Ordered By: Razia Maya on 10-22-2023 SCL-70 extractable nuclear Ab Qn (S) Not Reportable [facility] Serum myoglobin measurementO rdered By: Razia Maya on 10-22-2023 Myoglobin [Mass/Vol] 73 ng/mL - [facility] Comment on above: Performed at: [facility] - [facility] [address] [id number] Director: Federico El MD, Phone: [phone] at: - [facility] [id number] [place], [place] [id number] Director: Adolfo Jefferson PhD, Phone: [phone] Serum or plasma thyroid stim ulating hormone (TSH) measurement (units/volume)Ordered By: Razia Maya on 10-22-2023 TSH Qn 1.95 uIU/mL 0.358-3.74 [facility] Thin prep Papanicolaou smear with manual screeningOrdered By: Razia Maya on 10-22-2023 Thin prep Papanicolaou smear with manual screening < 1.0 ng/dL 0.0-30.0 [facility] .GFRon 10-09-2023 GFR Non- 51 ml/min/1.73sqm Normal [facility] ([place]) Comment on above: Result Comment: GFR [...] ORPH, GFR, CBC, ANEU, RFP, ADIFF #### [facility] [address] [place] [address] GFR >60 Normal [facility] ([place]) Comment on above: Result Comment: GFR [...] ORPH, GFR, CBC, ANEU, RFP, ADIFF #### [address] [address] BMPon 10-09-2023 BUN/Creatinine Ratio 30.7 ratio High 10.0-22.0 [facility] ([place]) Comment on above: Performed By: #### M ORPH, GFR, CBC, ANEU, RFP, ADIFF #### [address] [address] Calcium [Mass/Vol] 9.3 mg/dL Normal 8.7-10.4 [facility] ([place]) Comment on above: Performed By: #### M ORPH, GFR, CBC, ANEU, RFP, ADIFF #### [address] [address] Chloride [Moles/Vol] 108 mmol/L Normal 98-110 [facility] ([place]) Comment on above: Performed By: #### M ORPH, GFR, CBC, ANEU, RFP, ADIFF #### [address] [address] CO2 [Moles/Vol] 27 mmol/L Normal 22-32 [facility] ([place]) Comment on above: Performed By: #### M ORPH, GFR, CBC, ANEU, RFP, ADIFF #### [address] [address] Creatinine [Mass/Vol] 1.37 mg/dL Normal 0.60-1.40 [facility] ([place]) Comment on above: Performed By: #### M ORPH, GFR, CBC, ANEU, RFP, ADIFF #### [address] [address] Electrolyte Balance 6.0 mEq/L Normal 4.0-15.0 [facility] ([place]) Comment on above: Performed By: #### M ORPH, GFR, CBC, ANEU, RFP, ADIFF #### [address] [address] Glucose [Mass/Vol] 96 mg/dL Normal 82-115 [facility] ([place]) Comment on above: Performed By: #### M ORPH, GFR, CBC, ANEU, RFP, ADIFF #### [address] [address] Potassium [Moles/Vol] 5.3 mmol/L High 3.5-5.0 [facility] ([place]) Comment on above: Performed By: #### M ORPH, GFR, CBC, ANEU, RFP, ADIFF #### [place] [id number] Sodium [Moles/Vol] 141 mmol/L Normal 136-145 [facility] ([place]) Comment on above: Performed By: #### M ORPH, GFR, CBC, ANEU, RFP, ADIFF #### [address] [address] Urea nitrogen [Mass/Vol] 42.0 mg/dL High 8.0-22.0 [facility] ([place] Comment on above: Performed By: #### M ORPH, GFR, CBC, ANEU, RFP, ADIFF #### [address] [address] ERYTHon 07-27-2023 Erythropoietin 13.4 mIU/mL Normal 2.6-18.5 [facility] ([place] Comment on above: Result Comment: Test analyzed by the [employer] DxI method. Performed By: [facility] [address] [place] [address] Treasury Director: Teo French III, M.D. CLIA#: [id number] Performed By: #### E PO, BMP, GFR #### [address] [address] .GFRon 07-24-2023 GFR >60 Normal [facility] ([place]) Comment on above: Result Comment: GFR Population [...] By: #### E PO, BMP, GFR #### [address] [address] GFR Non- 57 ml/min/1.73sqm Normal [facility] ([place]) Comment on above: Result Comment: GFR Population [...] By: #### E PO, BMP, GFR #### [address] [address] BMPon 07-24-2023 BUN/Creatinine Ratio 29.8 ratio High 10.0-22.0 [facility] ([place]) Comment on above: Performed By: #### E PO, BMP, GFR #### [address] [address] Calcium [Mass/Vol] 9.2 mg/dL Normal 8.7-10.4 [facility] ([place]) Comment on above: Performed By: #### E PO, BMP, GFR #### [address] [address] Chloride [Moles/Vol] 106 mmol/L Normal 98-110 [facility] ([place]) Comment on above: Performed By: #### E PO, BMP, GFR #### [address] [address] CO2 [Moles/Vol] 27 mmol/L Normal 22-32 [facility] ([place] Comment on above: Performed By: #### E PO, BMP, GFR #### [address] [address] Creatinine [Mass/Vol] 1.24 mg/dL Normal 0.60-1.40 [facility] ([place]) Comment on above: Performed By: #### E PO, BMP, GFR #### [address] [address] Electrolyte Balance 5.0 mEq/L Normal 4.0-15.0 [facility] ([place] Comment on above: Performed By: #### E PO, BMP, GFR #### [address] [address] Glucose [Mass/Vol] 104 mg/dL Normal 82-115 [facility] ([place]) Comment on above: Performed By: #### E PO, BMP, GFR #### [address] [address] Potassium [Moles/Vol] 4.9 mmol/L Normal 3.5-5.0 [facility] ([place]) Comment on above: Result Comment: Spec imen slightly hemolyzed. Performed By: #### E PO, BMP, GFR #### [address] [address] Sodium [Moles/Vol] 138 mmol/L Normal 136-145 [facility] ([place]) Comment on above: Performed By: #### E PO, BMP, GFR #### [address] [address] Urea nitrogen [Mass/Vol] 37.0 mg/dL High 8.0-22.0 [facility] ([place] Comment on above: Performed By: #### E PO, BMP, GFR #### [address] [address] .GFRon 07-09-2023 GFR >60 Normal [facility] ([place] Comment on above: Result Comment: GFR Population [...] ORPH, GFR, CBC, ANEU, RFP, ADIFF #### [address] [address] GFR Non- 56 ml/min/1.73sqm Normal [facility] ([place] Comment on above: Result Comment: GFR Population [...] ORPH, GFR, CBC, ANEU, RFP, ADIFF #### [address] [address] .Auto Diffon 07-08-2023 Basophil, Absolute 0.0 10 3/mcL Normal 0.0-0.3 [facility] ([place] Comment on above: Performed By: #### M ORPH, GFR, CBC, ANEU, RFP, ADIFF #### [address] [address] Basophils/100 WBC (Bld) 0.6 % Normal 0.0-2.5 [facility] ([place] Comment on above: Performed By: #### M ORPH, GFR, CBC, ANEU, RFP, ADIFF #### [address] [address] Eosinophil, Absolute 0.1 10 3/mcL Normal 0.0-0.7 [facility] ([place]) Comment on above: Performed By: #### M ORPH, GFR, CBC, ANEU, RFP, ADIFF #### [address] [address] Eosinophils/100 WBC (Bld) 2.5 % Normal 0.0-6.0 [facility] ([place] Comment on above: Performed By: #### M ORPH, GFR, CBC, ANEU, RFP, ADIFF #### [address] [address] Lymphocyte, Absolute 0.8 10 3/mcL Low 0.9-4.3 [facility] ([place]) Comment on above: Performed By: #### M ORPH, GFR, CBC, ANEU, RFP, ADIFF #### [address] [address] Lymphocytes/100 WBC (Bld) 15.0 % Low 20.0-40.0 [facility] ([place] Comment on above: Performed By: #### M ORPH, GFR, CBC, ANEU, RFP, ADIFF #### [address] [address] Monocyte, Absolute 0.5 10 3/mcL Normal 0.1-1.4 [facility] ([place] Comment on above: Performed By: #### M ORPH, GFR, CBC, ANEU, RFP, ADIFF #### [address] [address] Monocytes/100 WBC (Bld) 9.2 % Normal 2.0-13.0 [facility] ([place] Comment on above: Performed By: #### M ORPH, GFR, CBC, ANEU, RFP, ADIFF #### [place] [id number] Neutrophils/100 WBC (Bld) 72.7 % Normal 50.0-75.0 [facility] ([place] Comment on above: Performed By: #### M ORPH, GFR, CBC, ANEU, RFP, ADIFF #### [address] [address] .NEUABSon 07-08-2023 Neutrophil, Absolute 3.7 10 3/mcL Normal 2.3-8.1 [facility] ([place]) Comment on above: Performed By: #### M ORPH, GFR, CBC, ANEU, RFP, ADIFF #### [place] [address] CBCon 07-08-2023 Erythrocyte distribution width (RBC) [Ratio] 14.1 % Normal 11.5-15.5 [facility] ([place] Comment on above: Performed By: #### M ORPH, GFR, CBC, ANEU, RFP, ADIFF #### [place] [address] Hematocrit (Bld) [Volume fraction] 30.9 % Low 40.0-52.0 [facility] ([place] Comment on above: Performed By: #### M ORPH, GFR, CBC, ANEU, RFP, ADIFF #### [place] [address] Hgb 10.9 G/dL Low 13.0-17.5 [facility] ([place] Comment on above: Performed By: #### M ORPH, GFR, CBC, ANEU, RFP, ADIFF #### [place] [address] MCH (RBC) [Entitic mass] 31.9 pg Normal 27.0-33.0 [facility] ([place] Comment on above: Performed By: #### M ORPH, GFR, CBC, ANEU, RFP, ADIFF #### [place] [id number] MCHC 35.4 G/dL Normal 32.0-36.0 [facility] ([place] Comment on above: Performed By: #### M ORPH, GFR, CBC, ANEU, RFP, ADIFF #### [place] [address] MCV (RBC) [Entitic vol] 90.1 fL Normal 81.0-100.0 [facility] ([place] Comment on above: Performed By: #### M ORPH, GFR, CBC, ANEU, RFP, ADIFF #### [place] [address] Platelet 181 10 3/mcL Normal 150-450 [facility] ([place] Comment on above: Performed By: #### M ORPH, GFR, CBC, ANEU, RFP, ADIFF #### [place] [address] Platelet mean volume (Bld) [Entitic vol] 8.6 fL Normal 6.4-10.5 [facility] ([place] Comment on above: Performed By: #### M ORPH, GFR, CBC, ANEU, RFP, ADIFF #### [place] [address] RBC 3.43 10 6/mcL Low 4.50-6.00 [facility] ([place]) Comment on above: Performed By: #### M ORPH, GFR, CBC, ANEU, RFP, ADIFF #### [place] [id number] WBC 5.1 10 3/mcL Normal 4.5-10.8 [facility] ([place]) Comment on above: Performed By: #### M ORPH, GFR, CBC, ANEU, RFP, ADIFF #### [place] [address] CRURon 07-08-2023 U Creatinine 42.0 mg/dL Normal [facility] ([place]) Comment on above: Performed By: #### M ORPH, GFR, CBC, ANEU, RFP, ADIFF #### [place] [id number] FEon 07-08-2023 Iron [Mass/Vol] 68 ug/dL Normal 65-175 [facility] ([place]) Comment on above: Performed By: #### M ORPH, GFR, CBC, ANEU, RFP, ADIFF #### [place] [address] Ceasar 07-08-2023 Ferritin [Mass/Vol] 85.2 ng/mL Normal 26.0-388.0 [facility] ([place]) Comment on above: Performed By: #### M ORPH, GFR, CBC, ANEU, RFP, ADIFF #### [place] [address] IBCon 07-08-2023 TIBC 245 mcg/dL Low 250-500 [facility] ([place]) Comment on above: Performed By: #### M ORPH, GFR, CBC, ANEU, RFP, ADIFF #### [place] [address] PRURon 07-08-2023 U Protein 64.0 mg/dL Normal [facility] ([place]) Comment on above: Performed By: #### M ORPH, GFR, CBC, ANEU, RFP, ADIFF #### [place] [address] PTHon 07-08-2023 PTH, Intact 29.2 pg/mL Normal 18.5-88.0 [facility] ([place] Comment on above: Performed By: #### M ORPH, GFR, CBC, ANEU, RFP, ADIFF #### [place] [address] RFPon 07-08-2023 Albumin Level 3.8 G/dL Normal 3.2-4.8 [facility] ([place]) Comment on above: Performed By: #### M ORPH, GFR, CBC, ANEU, RFP, ADIFF #### [place] [address] BUN/Creatinine Ratio 29.3 ratio High 10.0-22.0 [facility] ([place]) Comment on above: Performed By: #### M ORPH, GFR, CBC, ANEU, RFP, ADIFF #### [address] [address] Calcium [Mass/Vol] 9.6 mg/dL Normal 8.7-10.4 [facility] ([place]) Comment on above: Performed By: #### M ORPH, GFR, CBC, ANEU, RFP, ADIFF #### [address] [address] Chloride [Moles/Vol] 106 mmol/L Normal 98-110 [facility] ([place]) Comment on above: Performed By: #### M ORPH, GFR, CBC, ANEU, RFP, ADIFF #### [address] [address] CO2 [Moles/Vol] 30 mmol/L Normal 22-32 [facility] ([place]) Comment on above: Performed By: #### M ORPH, GFR, CBC, ANEU, RFP, ADIFF #### [address] [address] Creatinine [Mass/Vol] 1.33 mg/dL Normal 0.60-1.40 [facility] ([place]) Comment on above: Performed By: #### M ORPH, GFR, CBC, ANEU, RFP, ADIFF #### [address] [address] Electrolyte Balance 3.0 mEq/L Low 4.0-15.0 [facility] ([place]) Comment on above: Performed By: #### M ORPH, GFR, CBC, ANEU, RFP, ADIFF #### [address] [address] Glucose [Mass/Vol] 100 mg/dL Normal 82-115 [facility] ([place]) Comment on above: Performed By: #### M ORPH, GFR, CBC, ANEU, RFP, ADIFF #### [address] [address] Phosphate [Mass/Vol] 5.3 mg/dL High 2.4-5.1 [facility] ([place]) Comment on above: Result Comment: No te - New Reference Range in effect 20 Performed By: #### M ORPH, GFR, CBC, ANEU, RFP, ADIFF #### [facility] [address] [place] [address] Potassium [Moles/Vol] 5.4 mmol/L High 3.5-5.0 [facility] ([place]) Comment on above: Performed By: #### M ORPH, GFR, CBC, ANEU, RFP, ADIFF #### [facility] [address] [place] [address] Sodium [Moles/Vol] 139 mmol/L Normal 136-145 [facility] ([place]) Comment on above: Performed By: #### M ORPH, GFR, CBC, ANEU, RFP, ADIFF #### [facility] [address] [place] [address] Urea nitrogen [Mass/Vol] 39.0 mg/dL High 8.0-22.0 [facility] ([place]) Comment on above: Performed By: #### M ORPH, GFR, CBC, ANEU, RFP, ADIFF #### [place] [id number] [address] [place] [address] Roge 04-30-2023 Potassium [Moles/Vol] 4.9 mmol/L Normal 3.5-5.0 [facility] ([place]) Comment on above: Result Comment: Spec imen slightly hemolyzed. Performed By: #### M ORPH, GFR, CBC, ANEU, RFP, ADIFF #### [facility] [address] [place] [address] Absolute lymphocyte countOrd ered By: Razia Maya on 03-09-2023 Lymphocytes Auto (Unsp spec) [#/Vol] 0.89 10*3/uL 0.83-4.51 [facility] Basophil percentageOrdered B y: Razia Maya on 03-09-2023 Basophils/100 WBC (Bld) 0.6 % 0-1 [facility] Eosinophils/100 WBC (Bld) 3.2 % 0-5 [facility] LDH [Catalytic activity/Vol] 227 U/L 87-241 [facility] Neutrophils (Bld) [#/Vol] 3.2 10*3/uL 2.0-7.7 [facility] Neutrophils/100 WBC (Bld) 67.2 % 47-70 [facility] WBC (Bld) [#/Vol] 4.7 10*3/uL 4.4-11.0 [facility] Blood erythrocytes count (nu mber/volume)Ordered By: Razia Maya on 03-09-2023 RBC (Bld) [#/Vol] 3.20 10*6/uL 4.6-6.2 [facility] Blood hemoglobin measurement (mass/volume)Ordered By: Razia Maya on 03-09-2023 Hemoglobin (Bld) [Mass/Vol] 9.7 g/dL 13.0-16.5 [facility] Blood lymphocytes/100 leukoc ytesOrdered By: Razia Maya on 03-09-2023 Lymphocytes/100 WBC (Bld) 18.9 % 19-41 [facility] Blood monocytes/100 leukocyt esOrdered By: Razia Maya on 03-09-2023 Monocytes/100 WBC (Bld) 9.5 % 0-10 [facility] Blood platelet mean volumeOr dered By: Razia Maya on 03-09-2023 Platelet mean volume (Bld) [Entitic vol] 10.5 fL 6.2-12.0 [facility] Determination of erythrocyte mean corpuscular volume (MCV)Ordered By: Razia Maya on 03-09-2023 MCV (RBC) [Entitic vol] 92.8 fL 80-94 [facility] Hematocrit Auto (Bld) [Volum e fraction]Ordered By: Razia Maya on 03-09-2023 Hematocrit (Bld) [Volume fraction] 29.7 % 40-54 [facility] Iron measurement (mass/mass) Ordered By: Razia Maya on 03-09-2023 Iron (Unsp spec) [Mass/Mass] 63 ug/dL 65-175 [facility] Laboratory - Chemistry and C hemistry - challengeOrdered By: Razia Maya on 03-09-2023 Magnesium [Mass/Vol] 2.2 mg/dL 1.6-2.6 [facility] Laboratory - Hematology and Cell countsOrdered By: Razia Maya on 03-09-2023 Erythrocyte distribution width (RBC) [Entitic vol] 47.6 fL 35.1-43.9 [facility] Erythrocyte distribution width (RBC) [Ratio] 14.0 % 11.6-14.6 [facility] Immature granulocytes/100 WBC (Bld) 0.600 % 0.0-0.9 [facility] Comment on above: IG% - Immature Granu locytes (promyelocytes, myelocytes and metamyelocytes) > 1% indicates that a LEFT SHIFT is Present. MCH (RBC) [Entitic mass] 30.3 pg 27.0-32.0 [facility] Nucleated RBC/100 WBC (Bld) [Ratio] 0 % 0-5 [facility] MCHC Auto (RBC) [Mass/Vol]Or dered By: Razia Maya on 03-09-2023 MCHC (RBC) [Mass/Vol] 32.7 g/dL 32-36 [facility] Platelets bldOrdered By: Madeleine Maya on 03-09-2023 Platelets (Bld) [#/Vol] 172 10*3/uL 150-450 [facility] Serum or plasma ferritin rene surement (mass/volume)Ordered By: Razia Maya on 03-09-2023 Ferritin [Mass/Vol] 35 ng/mL 26-388 [facility] .GFRon 03-02-2023 GFR >60 Normal [facility] ([place]) Comment on above: Result Comment: GFR Population [...] ORPH, GFR, CBC, ANEU, RFP, ADIFF #### [place] [address] GFR Non- 54 ml/min/1.73sqm Normal [facility] ([place]) Comment on above: Result Comment: GFR Population [...] ORPH, GFR, CBC, ANEU, RFP, ADIFF #### [address] [address] RFPon 03-02-2023 Albumin Level 3.9 G/dL Normal 3.2-4.8 [facility] ([place]) Comment on above: Performed By: #### M ORPH, GFR, CBC, ANEU, RFP, ADIFF #### [address] [address] BUN/Creatinine Ratio 31.3 ratio High 10.0-22.0 [facility] ([place]) Comment on above: Performed By: #### M ORPH, GFR, CBC, ANEU, RFP, ADIFF #### [address] [address] Calcium [Mass/Vol] 9.1 mg/dL Normal 8.7-10.4 [facility] ([place]) Comment on above: Performed By: #### M ORPH, GFR, CBC, ANEU, RFP, ADIFF #### [address] [address] Chloride [Moles/Vol] 111 mmol/L High 98-110 [facility] ([place]) Comment on above: Performed By: #### M ORPH, GFR, CBC, ANEU, RFP, ADIFF #### [address] [address] CO2 [Moles/Vol] 24 mmol/L Normal 22-32 [facility] ([place]) Comment on above: Performed By: #### M ORPH, GFR, CBC, ANEU, RFP, ADIFF #### [address] [address] Creatinine [Mass/Vol] 1.31 mg/dL Normal 0.60-1.40 [facility] ([place]) Comment on above: Performed By: #### M ORPH, GFR, CBC, ANEU, RFP, ADIFF #### [address] [address] Electrolyte Balance 4.0 mEq/L Normal 4.0-15.0 [facility] ([place]) Comment on above: Performed By: #### M ORPH, GFR, CBC, ANEU, RFP, ADIFF #### [place] [id number] Glucose [Mass/Vol] 98 mg/dL Normal 82-115 [facility] ([place]) Comment on above: Performed By: #### M ORPH, GFR, CBC, ANEU, RFP, ADIFF #### [place] [id number] Phosphate [Mass/Vol] 4.7 mg/dL Normal 2.4-5.1 [facility] ([place]) Comment on above: Result Comment: No te - New Reference Range in effect 20 Performed By: #### M ORPH, GFR, CBC, ANEU, RFP, ADIFF #### [address] [address] Potassium [Moles/Vol] 4.9 mmol/L Normal 3.5-5.0 [facility] ([place]) Comment on above: Performed By: #### M ORPH, GFR, CBC, ANEU, RFP, ADIFF #### [address] [address] Sodium [Moles/Vol] 139 mmol/L Normal 136-145 [facility] ([place]) Comment on above: Performed By: #### M ORPH, GFR, CBC, ANEU, RFP, ADIFF #### [address] [address] Urea nitrogen [Mass/Vol] 41.0 mg/dL High 8.0-22.0 [facility] ([place]) Comment on above: Performed By: #### M ORPH, GFR, CBC, ANEU, RFP, ADIFF #### [address] [address] .Auto Diffon 01-27-2023 Basophil, Absolute 0.0 10 3/mcL Normal 0.0-0.3 [facility] ([place]) Comment on above: Performed By: #### M ORPH, GFR, CBC, ANEU, RFP, ADIFF #### [address] [address] Basophils/100 WBC (Bld) 0.8 % Normal 0.0-2.5 [facility] ([place]) Comment on above: Performed By: #### M ORPH, GFR, CBC, ANEU, RFP, ADIFF #### [address] [address] Eosinophil, Absolute 0.2 10 3/mcL Normal 0.0-0.7 [facility] ([place]) Comment on above: Performed By: #### M ORPH, GFR, CBC, ANEU, RFP, ADIFF #### [address] [address] Eosinophils/100 WBC (Bld) 3.5 % Normal 0.0-6.0 [facility] ([place]) Comment on above: Performed By: #### M ORPH, GFR, CBC, ANEU, RFP, ADIFF #### [address] [address] Lymphocyte, Absolute 0.8 10 3/mcL Low 0.9-4.3 [facility] ([place]) Comment on above: Performed By: #### M ORPH, GFR, CBC, ANEU, RFP, ADIFF #### [address] [address] Lymphocytes/100 WBC (Bld) 18.2 % Low 20.0-40.0 [facility] ([place]) Comment on above: Performed By: #### M ORPH, GFR, CBC, ANEU, RFP, ADIFF #### [address] [address] Monocyte, Absolute 0.4 10 3/mcL Normal 0.1-1.4 [facility] ([place]) Comment on above: Performed By: #### M ORPH, GFR, CBC, ANEU, RFP, ADIFF #### [address] [address] Monocytes/100 WBC (Bld) 9.8 % Normal 2.0-13.0 [facility] ([place]) Comment on above: Performed By: #### M ORPH, GFR, CBC, ANEU, RFP, ADIFF #### [address] [address] Neutrophils/100 WBC (Bld) 67.7 % Normal 50.0-75.0 [facility] ([place]) Comment on above: Performed By: #### M ORPH, GFR, CBC, ANEU, RFP, ADIFF #### [address] [address] .GFRon 01-27-2023 GFR >60 Normal [facility] ([place]) Comment on above: Result Comment: GFR Population [...] ORPH, GFR, CBC, ANEU, RFP, ADIFF #### [address] [address] GFR Non- 51 ml/min/1.73sqm Normal [facility] ([place]) Comment on above: Result Comment: GFR Population [...] ORPH, GFR, CBC, ANEU, RFP, ADIFF #### [address] [address] .NEUABSon 01-27-2023 Neutrophil, Absolute 3.0 10 3/mcL Normal 2.3-8.1 [facility] ([place]) Comment on above: Performed By: #### M ORPH, GFR, CBC, ANEU, RFP, ADIFF #### [place] [address] CBCon 01-27-2023 Erythrocyte distribution width (RBC) [Ratio] 14.6 % Normal 11.5-15.5 [facility] ([place] Comment on above: Performed By: #### M ORPH, GFR, CBC, ANEU, RFP, ADIFF #### [place] [address] Hematocrit (Bld) [Volume fraction] 27.6 % Low 40.0-52.0 [facility] ([place]) Comment on above: Performed By: #### M ORPH, GFR, CBC, ANEU, RFP, ADIFF #### [place] [address] Hgb 9.7 G/dL Low 13.0-17.5 [facility] ([place] Comment on above: Performed By: #### M ORPH, GFR, CBC, ANEU, RFP, ADIFF #### [place] [address] MCH (RBC) [Entitic mass] 31.2 pg Normal 27.0-33.0 [facility] ([place] Comment on above: Performed By: #### M ORPH, GFR, CBC, ANEU, RFP, ADIFF #### [place] [address] MCHC 35.2 G/dL Normal 32.0-36.0 [facility] ([place]) Comment on above: Performed By: #### M ORPH, GFR, CBC, ANEU, RFP, ADIFF #### [place] [address] MCV (RBC) [Entitic vol] 88.5 fL Normal 81.0-100.0 [facility] ([place] Comment on above: Performed By: #### M ORPH, GFR, CBC, ANEU, RFP, ADIFF #### [place] [address] Platelet 168 10 3/mcL Normal 150-450 [facility] ([place]) Comment on above: Performed By: #### M ORPH, GFR, CBC, ANEU, RFP, ADIFF #### [place] [address] Platelet mean volume (Bld) [Entitic vol] 8.2 fL Normal 6.4-10.5 [facility] ([place]) Comment on above: Performed By: #### M ORPH, GFR, CBC, ANEU, RFP, ADIFF #### [place] [address] RBC 3.12 10 6/mcL Low 4.50-6.00 [facility] ([place]) Comment on above: Performed By: #### M ORPH, GFR, CBC, ANEU, RFP, ADIFF #### [place] [address] WBC 4.4 10 3/mcL Low 4.5-10.8 [facility] ([place]) Comment on above: Performed By: #### M ORPH, GFR, CBC, ANEU, RFP, ADIFF #### [place] [address] CRURon 01-27-2023 U Creatinine 27.6 mg/dL Normal [facility] ([place]) Comment on above: Performed By: #### M ORPH, GFR, CBC, ANEU, RFP, ADIFF #### [place] [address] PRURon 01-27-2023 U Protein 42.1 mg/dL Normal [facility] ([place]) Comment on above: Performed By: #### M ORPH, GFR, CBC, ANEU, RFP, ADIFF #### [address] [address] PTHon 01-27-2023 PTH, Intact 51.6 pg/mL Normal 18.5-88.0 [facility] ([place] Comment on above: Performed By: #### M ORPH, GFR, CBC, ANEU, RFP, ADIFF #### [address] [address] RFPon 01-27-2023 Albumin Level 4.0 G/dL Normal 3.2-4.8 [facility] ([place]) Comment on above: Performed By: #### M ORPH, GFR, CBC, ANEU, RFP, ADIFF #### [place] [id number] BUN/Creatinine Ratio 30.4 ratio High 10.0-22.0 [facility] ([place]) Comment on above: Performed By: #### M ORPH, GFR, CBC, ANEU, RFP, ADIFF #### [address] [address] Calcium [Mass/Vol] 8.9 mg/dL Normal 8.7-10.4 [facility] ([place]) Comment on above: Performed By: #### M ORPH, GFR, CBC, ANEU, RFP, ADIFF #### [address] [address] Chloride [Moles/Vol] 105 mmol/L Normal 98-110 [facility] ([place]) Comment on above: Performed By: #### M ORPH, GFR, CBC, ANEU, RFP, ADIFF #### [address] [address] CO2 [Moles/Vol] 25 mmol/L Normal 22-32 [facility] ([place] Comment on above: Performed By: #### M ORPH, GFR, CBC, ANEU, RFP, ADIFF #### [address] [address] Creatinine [Mass/Vol] 1.38 mg/dL Normal 0.60-1.40 [facility] ([place]) Comment on above: Performed By: #### M ORPH, GFR, CBC, ANEU, RFP, ADIFF #### [address] [address] Electrolyte Balance 7.0 mEq/L Normal 4.0-15.0 [facility] ([place]) Comment on above: Performed By: #### M ORPH, GFR, CBC, ANEU, RFP, ADIFF #### [address] [address] Glucose [Mass/Vol] 103 mg/dL Normal 82-115 [facility] ([place]) Comment on above: Performed By: #### M ORPH, GFR, CBC, ANEU, RFP, ADIFF #### [address] [address] Phosphate [Mass/Vol] 4.7 mg/dL Normal 2.4-5.1 [facility] ([place]) Comment on above: Result Comment: No te - New Reference Range in effect 20 Performed By: #### M ORPH, GFR, CBC, ANEU, RFP, ADIFF #### [address] [address] Potassium [Moles/Vol] 4.7 mmol/L Normal 3.5-5.0 [facility] ([place]) Comment on above: Performed By: #### M ORPH, GFR, CBC, ANEU, RFP, ADIFF #### [address] [address] Sodium [Moles/Vol] 137 mmol/L Normal 136-145 [facility] ([place]) Comment on above: Performed By: #### M ORPH, GFR, CBC, ANEU, RFP, ADIFF #### [address] [address] Urea nitrogen [Mass/Vol] 42.0 mg/dL High 8.0-22.0 [facility] ([place] Comment on above: Performed By: #### M ORPH, GFR, CBC, ANEU, RFP, ADIFF #### [address] [address] .GFRon 01-05-2023 GFR 50 ml/min/1.73sqm Normal [facility] ([place]) Comment on above: Result Comment: GFR Population [...] ORPH, GFR, CBC, ANEU, RFP, ADIFF #### [place] [id number] GFR Non- 41 ml/min/1.73sqm Normal [facility] ([place]) Comment on above: Result Comment: GFR Population [...] ORPH, GFR, CBC, ANEU, RFP, ADIFF #### [address] [address] BMPon 01-05-2023 BUN/Creatinine Ratio 31.3 ratio High 10.0-22.0 [facility] ([place]) Comment on above: Performed By: #### M ORPH, GFR, CBC, ANEU, RFP, ADIFF #### [address] [address] Calcium [Mass/Vol] 9.3 mg/dL Normal 8.7-10.4 [facility] ([place]) Comment on above: Performed By: #### M ORPH, GFR, CBC, ANEU, RFP, ADIFF #### [address] [address] Chloride [Moles/Vol] 105 mmol/L Normal 98-110 [facility] ([place]) Comment on above: Performed By: #### M ORPH, GFR, CBC, ANEU, RFP, ADIFF #### [address] [address] CO2 [Moles/Vol] 26 mmol/L Normal 22-32 [facility] ([place] Comment on above: Performed By: #### M ORPH, GFR, CBC, ANEU, RFP, ADIFF #### [place] [id number] Creatinine [Mass/Vol] 1.66 mg/dL High 0.60-1.40 [facility] ([place]) Comment on above: Performed By: #### M ORPH, GFR, CBC, ANEU, RFP, ADIFF #### [address] [address] Electrolyte Balance 6.0 mEq/L Normal 4.0-15.0 [facility] ([place] Comment on above: Performed By: #### M ORPH, GFR, CBC, ANEU, RFP, ADIFF #### [address] [address] Glucose [Mass/Vol] 108 mg/dL Normal 82-115 [facility] ([place]) Comment on above: Performed By: #### M ORPH, GFR, CBC, ANEU, RFP, ADIFF #### [address] [address] Potassium [Moles/Vol] 5.2 mmol/L High 3.5-5.0 [facility] ([place]) Comment on above: Result Comment: Spec imen slightly hemolyzed. Performed By: #### M ORPH, GFR, CBC, ANEU, RFP, ADIFF #### [place] [id number] [address] [place] [address] Sodium [Moles/Vol] 137 mmol/L Normal 136-145 [facility] ([place]) Comment on above: Performed By: #### M ORPH, GFR, CBC, ANEU, RFP, ADIFF #### [place] [id number] [address] [place] [address] Urea nitrogen [Mass/Vol] 52.0 mg/dL High 8.0-22.0 [facility] ([place] Comment on above: Performed By: #### M ORPH, GFR, CBC, ANEU, RFP, ADIFF #### [address] [address] CNOVon 12-11-2022 CNOV Office Visit (CAUPDO ) SCARCAROLYN ([id number]) 1950 M [facility] Date Time Provider Department 12/11/22 9:20 AM MILENA HERMAN During your visit today, we recorded the following information about you: Pulse Blood pressure 62/minute 152/84 Milena Herman APRN.TOOL CHECKER 12/11/2022 1:50 PM Signed [facility] Department of Cardiology Referring Provider: No ref. [...] Take 81 mg by mouth once daily. qwnncpoum-zayfyjop-kczuznhf ne (STALEVO (more content not included)... Normal [facility] Absolute lymphocyte countOrd ered By: Dr. Giang on 12-02-2022 Lymphocytes Auto (Unsp spec) [#/Vol] 0.93 10*3/uL 0.83-4.51 [facility] Basophil percentageOrdered B y: Dr. Giang on 12-02-2022 Basophils/100 WBC (Bld) 0.9 % 0-1 [facility] Eosinophils/100 WBC (Bld) 3.1 % 0-5 [facility] Neutrophils (Bld) [#/Vol] 4.1 10*3/uL 2.0-7.7 [facility] Neutrophils/100 WBC (Bld) 70.0 % 47-70 [facility] WBC (Bld) [#/Vol] 5.9 10*3/uL 4.4-11.0 [facility] Blood erythrocytes count (nu mber/volume)Ordered By: Dr. Giang on 12-02-2022 RBC (Bld) [#/Vol] 3.21 10*6/uL 4.6-6.2 [facility] Blood hemoglobin measurement (mass/volume)Ordered By: Dr. Giang on 12-02-2022 Hemoglobin (Bld) [Mass/Vol] 9.9 g/dL 13.0-16.5 [facility] Blood lymphocytes/100 leukoc ytesOrdered By: Dr. Giang on 12-02-2022 Lymphocytes/100 WBC (Bld) 15.8 % 19-41 [facility] Blood monocytes/100 leukocyt esOrdered By: Dr. Giang on 12-02-2022 Monocytes/100 WBC (Bld) 9.5 % 0-10 [facility] Blood platelet mean volumeOr dered By: Dr. Giang on 12-02-2022 Platelet mean volume (Bld) [Entitic vol] 11.0 fL 6.2-12.0 [facility] Determination of erythrocyte mean corpuscular volume (MCV)Ordered By: Dr. Giang on 12-02-2022 MCV (RBC) [Entitic vol] 91.6 fL 80-94 [facility] Hematocrit Auto (Bld) [Volum e fraction]Ordered By: Dr. Giang on 12-02-2022 Hematocrit (Bld) [Volume fraction] 29.4 % 40-54 [facility] Laboratory - Hematology and Cell countsOrdered By: Dr. Giang on 12-02-2022 Erythrocyte distribution width (RBC) [Entitic vol] 42.9 fL 35.1-43.9 [facility] Erythrocyte distribution width (RBC) [Ratio] 12.9 % 11.6-14.6 [facility] Immature granulocytes/100 WBC (Bld) 0.700 % 0.0-0.9 [facility] Comment on above: IG% - Immature Granu locytes (promyelocytes, myelocytes and metamyelocytes) > 1% indicates that a LEFT SHIFT is Present. MCH (RBC) [Entitic mass] 30.8 pg 27.0-32.0 [facility] Nucleated RBC/100 WBC (Bld) [Ratio] 0 % 0-5 [facility] MCHC Auto (RBC) [Mass/Vol]Or dered By: Dr. Giang on 12-02-2022 MCHC (RBC) [Mass/Vol] 33.7 g/dL 32-36 [facility] Platelets bldOrdered By: Dr. Giang on 12-02-2022 Platelets (Bld) [#/Vol] 181 10*3/uL 150-450 [facility] CNOVon 11-13-2022 CNOV Office Visit (CAUPDO ) CAROLYN ABBOTT ([id number]) 1950 M [facility] Date Time Provider Department 11/13/22 10:40 AM MILENA HERMAN During your visit today, we recorded the following information about you: Pulse Blood pressure Weight Height 66/minute 152/82 106.6 kg 1.74 m Milena Herman APRN.TOOL CHECKER 11/14/2022 9:19 AM Signed [facility] Department of Cardiology Referring Provider: No ref. [...] Take 81 mg by mouth once daily. hdoipheez-lsslbgfg-fekqevld ne (STALEVO 200) 50-200-200 mg per tablet Take 1 tablet by mouth three times daily. cloNIDine TTS (CATAPRES-TTS) 0.1 mg/24 hr once daily as needed. hydrALAZINE (APRESOLINE) 100 mg tablet Take 100 mg by mouth three times daily. MAGNESIUM GLUCONATE ORAL (more content not included)... Normal [facility] Erythrocyte sedimentation ra teOrdered By: Dr. Maya on 11-04-2022 ESR (Bld) [Velocity] 9 mm/h 0-20 [facility] Laboratory - Chemistry and C hemistry - challengeOrdered By: Dr. Maya on 11-04-2022 CK [Catalytic activity/Vol] 86 U/L 39-308 [facility] Cobalamin (Vitamin B12) [Mass/Vol] 416 pg/mL 211-911 [facility] Magnesium [Mass/Vol] 2.3 mg/dL 1.6-2.6 [facility] No Panel InformationOrdered By: Dr. Maya on 11-04-2022 Vitamin D 25-Hydroxy 27.9 ng/mL [facility] Comment on above: Vitamin D 25(OH) Sta tus Range Deficiency <20 ng/mL (50nmol/L) Insufficiency 20 - 30 ng/mL (50 - 75 nmol/L) Sufficiency 30 - 100 ng/mL (75 - 250 nmol/L) Toxicity >100 ng/mL (>250 nmol/L) CNOVon 10-16-2022 CNOV Office Visit (CAUO ) CAROLYN ABBOTT ([id number]) 1950 M [facility] Date Time Provider Department 10/16/22 1:00 PM MILENA HERMAN During your visit today, we recorded the following information about you: Pulse Blood pressure Weight Height 64/minute 140/92 108.4 kg 1.74 m Milena Herman APRN.CNP 10/17/2022 12:40 PM Addendum [facility] Department of Cardiology Referring Provider: No ref. [...] Take 81 mg by mouth once daily. akzrptnax-blglpjye-nerotsqk ne (STALEVO 200) 50-200-200 mg per tablet Take 1 tablet by mouth three times daily. carvedilol (COREG) 25 mg tablet Take 25 mg by mouth twice daily with meals. cloNIDine TTS (CATAPRES-TTS) 0.1 mg/24 hr once (more content not included)... Normal [facility] ECG COMPLETEon 10-16-2022 ECG COMPLETE Ventricular Rate : 6 4 BPM Atrial Rate : 64 BPM P-R Interval : 208 ms QRS Duration : 78 ms Q-T Interval : 438 ms QTC Calculation(Bazett) : 451 ms Calculated P [place] : 30 degrees Calculated R [place] : 65 degrees Calculated T [place] : 31 degrees NORMAL SINUS RHYTHM NORMAL ECG NO PREVIOUS ECGS AVAILABLE Confirmed by MILTON BASILIO DO ([id number]) on 10/26/2022 8:20:55 AM NAME : CAROLYN ABBOTT PID : [id number] : 1950 Gender : Male Race : ORD : [id number] Procedure Date : Oct 16 2022 12:45:40 Edit Date : Oct 26 2022 08:20:59 Diagnosis: NORMAL SINUS RHYTHM NORMAL ECG NO PREVIOUS ECGS AVAILABLE Confirmed by MILTON BASILIO DO ([id number]) on 10/26/2022 8:20:55 AM Test Reason : Location : 606 : UPSHE Overread By : MILTON BASILIO DO Edited By : MILTON BASILIO DO Referred By : MILENA HERMAN Acquired by : [id number], Normal [facility] Basophil percentageon 2021 Chloride [Moles/Vol] 111 mmol/L 98-107 [facility] Work Phone: Glucose [Mass/Vol] 119 mg/dL 74-106 [facility] Work Phone: Comment on above: Fasting Glucose resu lt from 100 to 125 mg/dL suggests IMPAIRED HOMEOSTASIS per A.D.A. criteria. Potassium [Moles/Vol] 5.0 mmol/L 3.5-5.1 [facility] Work Phone: Sodium [Moles/Vol] 139 mmol/L 136-145 [facility] Work Phone: Laboratory - Chemistry and C hemistry - challengeon 06-20-2022 CO2 [Moles/Vol] 24.0 mmol/L 21.0-32.0 [facility] Work Phone: Urea nitrogen/Creatinine [Mass ratio] 25.7 mg/mg 06-19 [facility] Work Phone: No Panel Informationon 06-20 Estimated GFR (MDRD) Amer 64 mL/min >60 [facility] Work Phone: Comment on above: GFR Calc Estimated GFR (MDRD) Non-Af Amer 53 mL/min >60 [facility] Work Phone: Comment on above: Non- GFR Calc Serum or plasma calcium mariano urement (mass/volume)on 06-20-2022 Calcium [Mass/Vol] 8.8 mg/dL 8.5-10.1 [facility] Work Phone: Serum or plasma creatinine m easurement (mass/volume)on 06-20-2022 Creatinine [Mass/Vol] 1.40 mg/dL 0.70-1.30 [facility] Work Phone: Comment on above: The validity of the calculated GFR & GFRAA in patients over 70 years has not been determined. Clinical correlation is essential. Serum or plasma urea nitroge n measurement (mass/volume)on 06-20-2022 Urea nitrogen [Mass/Vol] 36 mg/dL 7-18 [facility] Work Phone: Thin prep Papanicolaou smear with manual screeningon 06-20-2022 Thin prep Papanicolaou smear with manual screening 4 5-15 [facility] Work Phone: Basophil percentageon 2021 Chloride [Moles/Vol] 105 mmol/L 98-107 [facility] Work Phone: Glucose [Mass/Vol] 110 mg/dL 74-106 [facility] Work Phone: Comment on above: Fasting Glucose resu lt from 100 to 125 mg/dL suggests IMPAIRED HOMEOSTASIS per A.D.A. criteria. Potassium [Moles/Vol] 4.8 mmol/L 3.5-5.1 [facility] Work Phone: Sodium [Moles/Vol] 137 mmol/L 136-145 [facility] Work Phone: Laboratory - Chemistry and C hemistry - challengeon 05-30-2022 CO2 [Moles/Vol] 24.0 mmol/L 21.0-32.0 [facility] Work Phone: Urea nitrogen/Creatinine [Mass ratio] 33.7 mg/mg 10-20 [facility] Work Phone: No Panel Informationon 05-30 Estimated GFR (MDRD) Amer 48 mL/min >60 [facility] Work Phone: Comment on above: GFR Calc Estimated GFR (MDRD) Non-Af Amer 39 mL/min >60 [facility] Work Phone: Comment on above: Non- GFR Calc Serum or plasma calcium mariano urement (mass/volume)on 05-30-2022 Calcium [Mass/Vol] 8.8 mg/dL 8.5-10.1 [facility] Work Phone: Serum or plasma creatinine m easurement (mass/volume)on 05-30-2022 Creatinine [Mass/Vol] 1.81 mg/dL 0.70-1.30 [facility] Work Phone: Comment on above: The validity of the calculated GFR & GFRAA in patients over 70 years has not been determined. Clinical correlation is essential. Serum or plasma urea nitroge n measurement (mass/volume)on 05-30-2022 Urea nitrogen [Mass/Vol] 61 mg/dL 7-18 [facility] Work Phone: Thin prep Papanicolaou smear with manual screeningon 05-30-2022 Thin prep Papanicolaou smear with manual screening 8 5-15 [facility] Work Phone: LABORATORYOrdered By: SYSTEM SYSTEM on 05-27-2022 Calcium [Mass/Vol] 9.0 mg/dL Invalid Interpretation Code 8.7 - 10.4 mg/dL ADM SS Chloride [Moles/Vol] 102 mmol/L Invalid Interpretation Code 98 - 110 mEq/L ADM SS CO2 [Moles/Vol] 25 mmol/L Invalid Interpretation Code 22 - 32 mEq/L ADM SS Creatinine [Mass/Vol] 2.27 mg/dL Invalid Interpretation Code 0.60 - 1.40 mg/dL ADM SS Electrolyte Balance 6.0 mEq/L Invalid Interpretation Code 4.0 - 15.0 mEq/L ADM SS GFR/1.73 sq M.predicted among blacks MDRD (S/P/Bld) [Vol rate/Area] 35 ml/min/1.73sqm Invalid Interpretation Code ADM SS GFR/1.73 [...] Invalid Interpretation Code 10.0 - 22.0 ratio AH ADM SS LABORATORYOrdered By: SYSTEM SYSTEM on [...] [Vol rate/Area] 28 ml/min/1.73sqm Invalid Interpretation Code ADM SS Glucose [Mass/Vol] 111 mg/dL Invalid Interpretation Code 82 - 115 mg/dL ADM SS Hematocrit (Bld) [Volume fraction] 36.3 [...] Invalid Interpretation Code 136 - 145 mEq/L AH ADM SS Urea nitrogen [Mass/Vol] 41.0 mg/dL Invalid Interpretation Code 8.0 - 22.0 mg/dL AH ADM SS Urea nitrogen/Creatinine [Mass ratio] 17.9 ratio Invalid Interpretation Code 10.0 - 22.0 ratio AH ADM SS WBC (Bld) [#/Vol] 5.2 103/mcL Invalid Interpretation Code 4.5 - 10.8 10^3/mcL Workflow SS LABORATORYOrdered By: SYSTEM SYSTEM on 05-24-2022 Basophils (Bld) [#/Vol] 0.1 103/mcL Invalid Interpretation Code 0.0 - 0.3 10^3/mcL AH Workflow SS Basophils/100 WBC (Bld) 0.8 % Invalid Interpretation Code 0.0 - 2.5 % AH Workflow SS Calcium [Mass/Vol] 9.8 mg/dL Invalid [...] 52.0 % Workflow SS Hemoglobin (Bld) [Mass/Vol] 13.1 G/dL Invalid Interpretation Code 13.0 - 17.5 G/dL Workflow SS Lymphocytes (Bld) [#/Vol] 1.0 103/mcL [...] AH Workflow SS MCV (RBC) [Entitic vol] 89.4 fL Invalid Interpretation Code 81.0 - 100.0 fL AH Workflow SS Monocytes (Bld) [#/Vol] 0.4 103/mcL Invalid Interpretation Code 0.1 - 1.4 10^3/mcL AH Workflow SS Monocytes/100 WBC (Bld) 6.6 % Invalid Interpretation Code 2.0 - 13.0 % AH Workflow SS Neutrophils (Bld) [#/Vol] 5.0 103/mcL Invalid Interpretation Code 2.3 - 8.1 10^3/mcL AH Workflow SS Neutrophils/100 WBC (Bld) 76.7 % Invalid Interpretation Code 50.0 - 75.0 % AH Workflow SS Platelet mean volume (Bld) [Entitic vol] 8.4 fL Invalid Interpretation Code 6.4 - 10.5 fL AH Workflow SS Platelets (Bld) [#/Vol] 180 103/mcL Invalid Interpretation Code 150 - 450 10^3/mcL AH Workflow SS Potassium [Moles/Vol] 4.6 mmol/L Invalid Interpretation Code 3.5 - 5.0 mEq/L ADM SS Comment on above: Result Comment: Spec imen slightly hemolyzed. RBC (Bld) [#/Vol] 4.23 106/mcL Invalid Interpretation Code 4.50 - 6.00 10^6/mcL AH Workflow SS Sodium [Moles/Vol] 138 mmol/L Invalid [...] Invalid Interpretation Code 4.5 - 10.8 10^3/mcL AH Workflow SS Albumin BCP dye [Mass/Vol] 3.8 [...] Code 0.0 - 2.5 % Workflow SS Bilirubin [Mass/Vol] 0.30 mg/dL Invalid Interpretation Code 0.20 - 1.20 mg/dL ADM SS Eosinophils (Bld) [#/Vol] 0.1 103/mcL Invalid Interpretation Code 0.0 - 0.7 10^3/mcL AH Workflow SS Eosinophils/100 WBC (Bld) 2.0 % [...] Invalid Interpretation Code 13.0 - 17.5 G/dL Workflow SS Lymphocytes (Bld) [#/Vol] 0.8 103/mcL Invalid Interpretation Code 0.9 - 4.3 10^3/mcL Workflow SS Lymphocytes/100 WBC (Bld) 14.1 % [...] Invalid Interpretation Code 0.00 - 54.00 ng/L AH ADM SS WBC (Bld) [#/Vol] 5.5 103/mcL Invalid Interpretation Code 4.5 - 10.8 10^3/mcL AH Workflow SS LABORATORYOrdered By: Barney Sánchez on 05-24-2022 Blood Glucose Testing Reason Routine (05/24/22 9:50 PM) [facility] Work Phone: Glucose [Mass/Vol] 118 mg/dL Invalid Interpretation Code 82 - 115 mg/dL [facility] Work Phone: LABORATORYOrdered By: bAdias Lindo on 05-24-2022 Natriuretic peptide.B prohormone N-Terminal [Mass/Vol] 361 pg/mL Invalid Interpretation Code 0 - 900 pg/mL AH Auto Chem SS Albumin Elph [Mass/Vol]on Albumin [Mass/Vol] 3.7 g/dL 2.9-4.4 [facility] Work Phone: Erythrocyte sedimentation ra karley 11-27-2021 ESR (Bld) [Velocity] 16 mm/h 0-20 [facility] Work Phone: Interpretation of serum or p lasma protein pattern by immunofixation (narrative resulton 11-27-2021 Protein Fractions Immunofixation Abelardo [Interp] See comment [facility] Work Phone: Comment on above: Result: Not Observed Laboratory - Chemistry and C hemistry - challengeon 11-27-2021 Cobalamin (Vitamin B12) [Mass/Vol] 565 pg/mL 211-911 [facility] Work Phone: No Panel Informationon 11-27 Addendum Document Comment . [facility] Work Phone: Comment on above: Protein electrophore sis scan will follow via computer,mail, or claims sorter delivery. Anti-Nuclear Antibody Screen Negative Negative [facility] Work Phone: Comment on above: Performed at: - [address] [id number] Director: Adolfo Jefferson PhD, Phone: [phone] Vitamin B6 Level 125.3 ug/L 5.3-46.7 [facility] Work Phone: Comment on above: Effective December 02, 2021 Vitamin B6 reference interval will be changing to: 3.4 - 65.2 ug/L Deficiency: < 3.4 Marginal: 3.4 - 5.1 Adequate: > 5.1 Whole Blood Vitamin B1 Level 97.1 nmol/L 66.5-200.0 [facility] Work Phone: Comment on above: Performed at: - [address] [id number] Director: Adolfo Jefferson PhD, Phone: [phone] at: - [facility] [id number] Director: Federico El MD, Phone: [phone] Serum [id number] measu rement by electrophoresison 11-27-2021 Alpha 1 globulin Elph [Mass/Vol] 0.2 g/dL 0.0-0.4 [facility] Work Phone: Alpha 1 globulin Elph [Mass/Vol] 0.9 g/dL 0.4-1.0 [facility] Work Phone: Serum globulin measurement ( mass/volume)on 11-27-2021 Globulin (S) [Mass/Vol] 2.5 g/dL 2.2-3.9 [facility] Work Phone: Serum or plasma C reactive p rotein measurement (mass/volume)on 11-27-2021 CRP [Mass/Vol] mg/L 0.0-3.0 [facility] Work Phone: Comment on above: C-Reactive Protein ( CRP) provides useful information for thediagnosis, therapy and monitoring of inflammatory processesand associated diseases. For the evaluation of Relative Riskfor Cardiovascular Disease, a High Sensitivity CRP (HSCRP)should be ordered. Serum or plasma IgA measurem ent (mass/volume)on 11-27-2021 IgA [Mass/Vol] 66 mg/dL 61-437 [facility] Work Phone: Serum or plasma IgG measurem ent (mass/volume)on 11-27-2021 IgG [Mass/Vol] 440 mg/dL [phone] [facility] Work Phone: Serum or plasma IgM measurem ent (mass/volume)on 03-30-2022 IgM [Mass/Vol] 7 mg/dL 15-143 [facility] Work Phone: Comment on above: Result confirmed on concentration. Serum or plasma beta globuli n measurement by electrophoresis (mass/volume)on 11-27-2021 Beta globulin Elph [Mass/Vol] 1.0 g/dL 0.7-1.3 [facility] Work Phone: Serum or plasma gamma globul in measurement by electrophoresis (mass/volume)on 11-27-2021 Gamma globulin Elph [Mass/Vol] 0.4 g/dL 0.4-1.8 [facility] Work Phone: Serum or plasma immunoelectr ophoresis interpretation (nominal result)on 11-27-2021 Interpretation IEP [Interp] Comment . [facility] Work Phone: Comment on above: No monoclonality det ected. Thin prep Papanicolaou smear with manual screeningon 11-27-2021 Thin prep Papanicolaou smear with manual screening 1.5 0.7-1.7 [facility] Work Phone: Total protein bloodon 2021 Protein [Mass/Vol] 6.2 g/dL 6.0-8.5 [facility] Work Phone: Basophil percentageon 2021 Chloride [Moles/Vol] 108 mmol/L 98-107 [facility] Work Phone: Glucose [Mass/Vol] 109 mg/dL 74-106 [facility] Work Phone: Comment on above: Fasting Glucose resu lt from 100 to 125 mg/dL suggests IMPAIRED HOMEOSTASIS per A.D.A. criteria. Potassium [Moles/Vol] 5.2 mmol/L 3.5-5.1 [facility] Work Phone: Sodium [Moles/Vol] 138 mmol/L 136-145 [facility] Work Phone: Laboratory - Chemistry and C hemistry - challengeon 11-19-2021 CO2 [Moles/Vol] 27.0 mmol/L 21.0-32.0 [facility] Work Phone: Urea nitrogen/Creatinine [Mass ratio] 27.5 mg/mg 10-20 [facility] Work Phone: No Panel Informationon 11-19 Estimated GFR (MDRD) Amer 65 mL/min >60 [facility] Work Phone: Comment on above: GFR Calc Estimated GFR (MDRD) Non-Af Amer 54 mL/min >60 [facility] Work Phone: Comment on above: Non- GFR Calc Serum or plasma calcium mariano urement (mass/volume)on 11-19-2021 Calcium [Mass/Vol] 8.9 mg/dL 8.5-10.1 [facility] Work Phone: Serum or plasma creatinine m easurement (mass/volume)on 11-19-2021 Creatinine [Mass/Vol] 1.38 mg/dL 0.70-1.30 [facility] Work Phone: Comment on above: The validity of the calculated GFR & GFRAA in patients over 70 years has not been determined. Clinical correlation is essential. Serum or plasma urea nitroge n measurement (mass/volume)on 11-19-2021 Urea nitrogen [Mass/Vol] 38 mg/dL 7- [facility] Work Phone: Thin prep Papanicolaou smear with manual screeningon 11-19-2021 Thin prep Papanicolaou smear with manual screening 3 5-15 [facility] Work Phone: Office Visiton 12-16-2016 Dietary management education, guidance, and counseling (procedure) yes Invalid Interpretation Code [facility] Work Phone: Documentation of current medications (procedure) Done Invalid Interpretation Code [facility] Work Phone: Clinical Lists Update: Prelo tray drier 12-11-2016 Left ventricular Ejection fraction 55 % Invalid Interpretation Code [facility] Work Phone: Lab Report: Thyroid Stim Hor omero (TSH)on 02-18-2016 Thyroid stimulating hormone (TSH) 2.44 u[iU]/mL Invalid Interpretation Code 0.358-3.74 [employer] Phone: [phone] Office Visit: Establish Care on 02-18-2016 Tobacco smoking status NHIS Never Invalid Interpretation Code [facility] Work Phone: [phone] Tobacco use CPHS Never smoker Invalid Interpretation Code [employer] Phone: [phone] Office Visiton 06-20-2015 cardiac risk group B Invalid Interpretation Code [employer] Phone: [phone] General cardiovascular disease 10Y risk [#] [place] Not enough information Invalid Interpretation Code [facility] Work Phone: [phone] Replaced Document: Tarah E CG Observationson 06-20-2015 electrocardiogram interpretation Sinus Rhythm Low voltage in precordial leads. -Old inferior infarct. ABNORMAL Invalid Interpretation Code [employer] Phone: [phone] GE use only - for [employer] import when terms are not otherwise specified 404 ms Invalid Interpretation Code [employer] Phone: [phone] P wave axis, electrocardiogram 27 deg Invalid Interpretation Code [employer] Phone: [phone] FL interval, electrocardiogram 192 ms Invalid Interpretation Code [employer] Phone: [phone] Pulse (Heart Rate) 66 /min Invalid Interpretation Code [employer] Phone: [phone] QRS axis, electrocardiogram 10 deg Invalid Interpretation Code [employer] Phone: [phone] QRS duration, electrocardiogram 86 ms Invalid Interpretation Code [employer] Work Phone: [phone] QT interval, electrocardiogram new path ms Invalid Interpretation Code [employer] Phone: [phone] T wave axis, electrocardiogram 18 deg Invalid Interpretation Code [employer] Phone: [phone] Clinical Lists Update: Prelo tray drier 06-12-2015 Anion gap 8 mmol/L Invalid Interpretation Code [employer] Work Phone: [phone] basophils as percent of blood leukocytes, manual count 0.3 % Invalid Interpretation Code [employer] Phone: [phone] BUN/Creatinine Ratio 27.0 mg/mg [facility] Work Phone: [phone] Calcium 9.1 mg/dL Invalid Interpretation Code [facility] Work Phone: [phone] Chloride 107 mmol/L Invalid Interpretation Code [facility] Work Phone: [phone] CO2 25.0 mmol/L Invalid Interpretation Code [facility] Work Phone: [phone] Creatinine 1.15 mg/dL Invalid Interpretation Code [facility] Work Phone: [phone] eGFR (non-black) 68 mL/min/{1.73_m2} Invalid Interpretation Code [facility] Work Phone: [phone] eGFR (non-black) 82 mL/min/{1.73_m2} Invalid Interpretation Code [facility] Work Phone: [phone] eosinophils as percent of blood leukocytes, manual count 2.0 % Invalid Interpretation Code [facility] Work Phone: [phone] Erythrocytes (RBC) 3.97 10*6/uL [facility] Work Phone: [phone] Glucose 99 mg/dL Invalid Interpretation Code [facility] Work Phone: [phone] Hematocrit (HCT) 37.2 % Low [facility] Work Phone: [phone] Hemoglobin (HGB) 13.1 g/dL Invalid Interpretation Code [facility] Work Phone: [phone] Lymphocytes/100 leukocytes 14.8 % Low [facility] Work Phone: [phone] MCH 33.0 pg High [facility] Work Phone: [phone] MCHC 35.2 g/dL Invalid Interpretation Code [facility] Work Phone: [phone] MCV 93.7 fL Invalid Interpretation Code [facility] Work Phone: [phone] Monocytes/100 leukocytes 7.7 % Invalid Interpretation Code [facility] Work Phone: [phone] neutrophils, band form as percent of blood leukocytes, manual count 74.7 % High [facility] Work Phone: [phone] Platelets 185 10*3/mm3 Invalid Interpretation Code [facility] Work Phone: [phone] PMV by Jonel-Jojo 11.0 fL Invalid Interpretation Code [facility] Work Phone: [phone] Potassium 4.3 mmol/L Invalid Interpretation Code [facility] Work Phone: [phone] RDW-CA 13.8 % Invalid Interpretation Code [facility] Work Phone: [phone] Sodium 140 mmol/L Invalid Interpretation Code [facility] Work Phone: [phone] Urea nitrogen 31 mg/dL High [facility] Work Phone: [phone] WBC (Leukocytes) 8.9 10*3/uL Invalid Interpretation Code [facility] Work Phone: [phone] Vital Signs Date Time Vital Sign Value Performing Clinician Facility 05-11-2025 10:54-0400 Diastolic blood pressure 77 mm[Hg] Ralph Noriega MD Work Phone: [facility] 05-11-2025 10:54-0400 Heart rate 58 /min Ralph Noriega MD Work Phone: [facility] 05-11-2025 10:54-0400 Systolic blood pressure 150 mm[Hg] Ralph Noriega MD Work Phone: [facility] 05-11-2025 10:06-0400 Body height 174 cm Ralph Noriega MD Work Phone: [facility] 05-11-2025 10:06-0400 Body mass index (BMI) [Ratio] 32.96 kg/m2 Ralph Noriega MD Work Phone: [facility] 05-11-2025 10:06-0400 Body weight 99.79 kg Ralph Noriega MD Work Phone: [facility] 03-26-2025 13:18-0400 Body mass index (BMI) [Ratio] 31.4 kg/m2 Rock Gila DO Work Phone: [facility] 03-26-2025 13:18-0400 Body temperature 98.01 [degF] Rock Gila DO Work Phone: [facility] 03-26-2025 13:18-0400 Body weight 100.7 kg Rock Gila DO Work Phone: [facility] 03-26-2025 13:18-0400 Diastolic blood pressure 92 mm[Hg] Rock Gila DO Work Phone: [facility] 03-26-2025 13:18-0400 Heart rate 62 /min Teresa Gila DO Work Phone: [facility] 03-26-2025 13:18-0400 Respiratory rate 18 /min Teresa Gila DO Work Phone: [facility] 03-26-2025 13:18-0400 SaO2% (BldA) [Mass fraction] 96 % Teresa Gila DO Work Phone: [facility] 03-26-2025 13:18-0400 Systolic blood pressure 189 mm[Hg] Teresa Gila DO Work Phone: [facility] 01-18-2025 10:28-0400 Diastolic blood pressure 88 mm[Hg] Ralph Noriega MD Work Phone: [facility] 01-18-2025 10:28-0400 Heart rate 61 /min Ralph Noriega MD Work Phone: [facility] 01-18-2025 10:28-0400 Systolic blood pressure 198 mm[Hg] Ralph Noriega MD Work Phone: [facility] 01-18-2025 09:59-0400 Body height 174 cm Ralph Noriega MD Work Phone: [facility] 01-18-2025 09:59-0400 Body mass index (BMI) [Ratio] 33.05 kg/m2 Ralph Noriega MD Work Phone: [facility] 01-18-2025 09:59-0400 Body weight 100.06 kg Ralph Noriega MD Work Phone: [facility] 12-13-2024 10:03-0400 Diastolic blood pressure 90 mm[Hg] Milton Gross DO Work Phone: [facility] 12-13-2024 10:03-0400 Systolic blood pressure 174 mm[Hg] Milton Gross DO Work Phone: [facility] 12-13-2024 09:59-0400 Body height 179.1 cm Milton Basilio DO Work Phone: [facility] 12-13-2024 09:59-0400 Body mass index (BMI) [Ratio] 30.03 kg/m2 Milton Basilio DO Work Phone: [facility] 12-13-2024 09:59-0400 Body weight 96.3 kg Milton Basilio [employer] Work Phone: [facility] 12-13-2024 09:59-0400 Heart rate 61 /min Milton Basilio [employer] Work Phone: [facility] 11-24-2024 15:38-0400 Body temperature 97.1 [degF] Dr. Razia Maya DO Work Phone: [facility] 11-24-2024 15:38-0400 Diastolic blood pressure 73 mm[Hg] Dr. Razia Maya DO Work Phone: [facility] 11-24-2024 15:38-0400 Heart rate 84 /min Dr. Razia Maya DO Work Phone: [facility] 11-24-2024 15:38-0400 Respiratory rate 18 /min Dr. Razia Maya DO Work Phone: [facility] 11-24-2024 15:38-0400 SaO2% (BldA) [Mass fraction] 95 % Dr. Razia Maya DO Work Phone: [facility] 11-24-2024 15:38-0400 Systolic blood pressure 126 mm[Hg] Dr. Razia Maya DO Work Phone: [facility] 11-24-2024 13:10-0400 Inhaled oxygen flow rate 6 L/min Dr. Razia Maya DO Work Phone: [facility] 11-24-2024 09:02-0400 Body height 177.[address] Razia Maya DO Work Phone: [facility] 11-24-2024 09:02-0400 Body mass index (BMI) [Ratio] 31.4 kg/m2 Dr. Razia Maya DO Work Phone: [facility] 11-24-2024 09:02-0400 Body weight 99.[address] Razia Maya DO Work Phone: [facility] 11-11-2024 13:18-0400 Body temperature 98.3 [degF] Dr. Razia Maya DO Work Phone: [facility] 11-11-2024 13:18-0400 Diastolic blood pressure 84 mm[Hg] Dr. Razia Maya DO Work Phone: [facility] 11-11-2024 13:18-0400 Heart rate 50 /min Dr. Razia Maya DO Work Phone: [facility] 11-11-2024 13:18-0400 Respiratory rate 16 /min Dr. Razia Maya DO Work Phone: [facility] 11-11-2024 13:18-0400 SaO2% (BldA) [Mass fraction] 98 % Dr. Razia Maya DO Work Phone: [facility] 11-11-2024 13:18-0400 Systolic blood pressure 157 mm[Hg] Dr. Razia Maya DO Work Phone: [facility] 11-11-2024 11:11-0400 Body height 177.[address] Razia Maya DO Work Phone: [facility] 11-11-2024 11:11-0400 Body mass index (BMI) [Ratio] 30.9 kg/m2 Dr. Razia Maya DO Work Phone: [facility] 11-11-2024 11:11-0400 Body weight 97.[address] Razia Maya DO Work Phone: [facility] 11-07-2024 13:50-0400 Body height 177.[address] Razia Maya DO Work Phone: [facility] 11-07-2024 13:50-0400 Body mass index (BMI) [Ratio] 30.9 kg/m2 Dr. Razia Maya DO Work Phone: [facility] 11-07-2024 13:50-0400 Body temperature 97.2 [degF] Dr. Razia Maya DO Work Phone: [facility] 11-07-2024 13:50-0400 Body weight 97.[address] Razia Maya DO Work Phone: [facility] 11-07-2024 13:50-0400 Diastolic blood pressure 75 mm[Hg] Dr. Razia Maya DO Work Phone: [facility] 11-07-2024 13:50-0400 Heart rate 74 /min Dr. Razia Maya DO Work Phone: [facility] 11-07-2024 13:50-0400 Respiratory rate 18 /min Dr. Razia Maya DO Work Phone: [facility] 11-07-2024 13:50-0400 SaO2% (BldA) [Mass fraction] 99 % Dr. Razia Maya DO Work Phone: [facility] 11-07-2024 13:50-0400 Systolic blood pressure 111 mm[Hg] Dr. Razia Maya DO Work Phone: [facility] 09-27-2024 13:07-0500 Body height 177.[address] Razia Maya DO Work Phone: [facility] 09-27-2024 13:07-0500 Body mass index (BMI) [Ratio] 31.2 kg/m2 Dr. Razia Maya DO Work Phone: [facility] 09-27-2024 13:07-0500 Body weight 98.[address] Razia Maya DO Work Phone: [facility] 03-14-2024 09:25-0400 Body height 174 cm Milena Tapiaoll INTERNAL GRINDER TENDER.TOOL CHECKER Work Phone: [facility] 03-14-2024 09:25-0400 Body mass index (BMI) [Ratio] 33.2 kg/m2 Milena Tapiaoll INTERNAL GRINDER TENDER.TOOL CHECKER Work Phone: [facility] 03-14-2024 09:25-0400 Body weight 100.5 kg Milena Tapiaoll INTERNAL GRINDER TENDER.TOOL CHECKER Work Phone: [facility] 03-14-2024 09:25-0400 Diastolic blood pressure 80 mm[Hg] Milena Herman INTERNAL GRINDER TENDER.TOOL CHECKER Work Phone: [facility] 03-14-2024 09:25-0400 Heart rate 59 /min Milena Tapiaoll INTERNAL GRINDER TENDER.TOOL CHECKER Work Phone: [facility] 03-14-2024 09:25-0400 Systolic blood pressure 122 mm[Hg] Milena Tapiaoll INTERNAL GRINDER TENDER.TOOL CHECKER Work Phone: [facility] 01-19-2024 09:20-0400 Body height 174 cm Ralph Noriega MD Work Phone: [facility] 01-19-2024 09:20-0400 Body mass index (BMI) [Ratio] 33.89 kg/m2 Ralph Noriega MD Work Phone: [facility] 01-19-2024 09:20-0400 Body weight 102.6 kg Ralph Noriega MD Work Phone: [facility] 01-19-2024 09:20-0400 Diastolic blood pressure 83 mm[Hg] Ralph Noriega MD Work Phone: [facility] 01-19-2024 09:20-0400 Heart rate 59 /min Ralph Noriega MD Work Phone: [facility] 01-19-2024 09:20-0400 Systolic blood pressure 159 mm[Hg] Ralph Noriega MD Work Phone: [facility] 10-29-2023 09:54-0500 Body height 174 cm Ralph Noriega MD Work Phone: [facility] 10-29-2023 09:54-0500 Body mass index (BMI) [Ratio] 34.85 kg/m2 Ralph Noriega MD Work Phone: [facility] 10-29-2023 09:54-0500 Body weight 105.51 kg Ralph Noriega MD Work Phone: [facility] 10-29-2023 09:54-0500 Diastolic blood pressure 87 mm[Hg] Ralph Noriega MD Work Phone: [facility] 10-29-2023 09:54-0500 Heart rate 64 /min Ralph Noriega MD Work Phone: [facility] 10-29-2023 09:54-0500 Systolic blood pressure 172 mm[Hg] Ralph Noriega MD Work Phone: [facility] 10-21-2023 09:04-0500 Body temperature 98.4 [degF] Day Hernandez DO Work Phone: [facility] 10-21-2023 09:04-0500 Body weight 104.78 kg Day Hernandez DO Work Phone: [facility] 10-21-2023 09:04-0500 Diastolic blood pressure 90 mm[Hg] Day Hernandez DO Work Phone: [facility] 10-21-2023 09:04-0500 Heart rate 70 /min Day Hernandez DO Work Phone: [facility] 10-21-2023 09:04-0500 Respiratory rate 16 /min Day Hernandez DO Work Phone: [facility] 10-21-2023 09:04-0500 SaO2% (BldA) [Mass fraction] 97 % Day Hernandez DO Work Phone: [facility] 10-21-2023 09:04-0500 Systolic blood pressure 140 mm[Hg] Day Hernandez DO Work Phone: [facility] 07-28-2023 09:21-0500 Body height 174 cm Ralph Noriega MD Work Phone: [facility] 07-28-2023 09:21-0500 Body mass index (BMI) [Ratio] 33.8 kg/m2 Ralph Noriega MD Work Phone: [facility] 07-28-2023 09:21-0500 Body weight 102.33 kg Ralph Noriega MD Work Phone: [facility] 07-28-2023 09:21-0500 Diastolic blood pressure 83 mm[Hg] Ralhp Noriega MD Work Phone: [facility] 07-28-2023 09:21-0500 Heart rate 61 /min Ralph Noriega MD Work Phone: [facility] 07-28-2023 09:21-0500 Systolic blood pressure 159 mm[Hg] Ralph Noriega MD Work Phone: [facility] 06-12-2023 09:41-0400 Body height 177.8 cm Milton Gross DO Work Phone: [facility] 06-12-2023 09:41-0400 Body weight 103.47 kg Milton Gross DO Work Phone: [facility] 06-12-2023 09:41-0400 Diastolic blood pressure 90 mm[Hg] Milton Gross DO Work Phone: [facility] 06-12-2023 09:41-0400 Heart rate 65 /min Milton Gross DO Work Phone: [facility] 06-12-2023 09:41-0400 Systolic blood pressure 138 mm[Hg] Milton Gross DO Work Phone: [facility] 04-27-2023 08:49-0400 Body mass index (BMI) [Ratio] 34.01 kg/m2 Ralph Noriega MD Work Phone: [facility] 04-27-2023 08:49-0400 Body weight 102.97 kg Ralph Noriega MD Work Phone: [facility] 04-27-2023 08:49-0400 Diastolic blood pressure 89 mm[Hg] Ralph Noriega MD Work Phone: [facility] 04-27-2023 08:49-0400 Heart rate 64 /min Ralph Noriega MD Work Phone: [facility] 04-27-2023 08:49-0400 Systolic blood pressure 162 mm[Hg] Ralph Noriega MD Work Phone: [facility] 03-13-2023 14:27-0400 Body mass index (BMI) [Ratio] 34.16 kg/m2 Ralph Noriega MD Work Phone: [facility] 03-13-2023 14:27-0400 Body weight 103.42 kg Ralph Noriega MD Work Phone: [facility] 03-13-2023 14:27-0400 Diastolic blood pressure 86 mm[Hg] Ralph Noriega MD Work Phone: [facility] 03-13-2023 14:27-0400 Heart rate 62 /min Ralph Noriega MD Work Phone: [facility] 03-13-2023 14:27-0400 Systolic blood pressure 179 mm[Hg] Ralph Noriega MD Work Phone: [facility] 01-07-2023 15:11-0400 Body temperature 97 [degF] Dr. Razia Maya Work Phone: [facility] 01-07-2023 15:11-0400 Diastolic blood pressure 88 mm[Hg] Dr. Razia Maya Work Phone: [facility] 01-07-2023 15:11-0400 Heart rate 78 /min Dr. Razia Maya Work Phone: [facility] 01-07-2023 15:11-0400 Respiratory rate 16 /min Dr. Razia Maya Work Phone: [facility] 01-07-2023 15:11-0400 SaO2% (BldA) [Mass fraction] 94 % Dr. Razia Maya Work Phone: [facility] 01-07-2023 15:11-0400 Systolic blood pressure 179 mm[Hg] Dr. Razia Maya Work Phone: [facility] 01-07-2023 13:15-0400 Inhaled oxygen flow rate 3 L/min Dr. Razia Maya Work Phone: [facility] 01-07-2023 10:28-0400 Body height 172.[address] Razia Maya Work Phone: [facility] 01-07-2023 10:28-0400 Body mass index (BMI) [Ratio] 34.5 kg/m2 Dr. Razia Maya Work Phone: [facility] 01-07-2023 10:28-0400 Body weight [address] Razia Myaa Work Phone: [facility] 11-11-2022 08:54-0400 Body height 173.[address] Razia Maya Work Phone: [facility] 11-11-2022 08:54-0400 Body mass index (BMI) [Ratio] 35.9 kg/m2 Dr. Razia Maya Work Phone: [facility] 11-11-2022 08:54-0400 Body temperature 97.5 [degF] Dr. Razia Maya Work Phone: [facility] 11-11-2022 08:54-0400 Body weight 108.[address] Razia Maya Work Phone: [facility] 11-11-2022 08:54-0400 Diastolic blood pressure 85 mm[Hg] Dr. Razia Maya Work Phone: [facility] 11-11-2022 08:54-0400 Heart rate 64 /min Dr. Razia Maya Work Phone: [facility] 03-14-2023 08:54-0400 Respiratory rate 18 /min Dr. Razia Maya Work Phone: [facility] 11-11-2022 08:54-0400 SaO2% (BldA) [Mass fraction] 97 % Dr. Razia Maya Work Phone: [facility] 11-11-2022 08:54-0400 Systolic blood pressure 173 mm[Hg] Dr. Razia Maya Work Phone: [facility] 10-27-2022 08:55-0500 Body height 174 cm Ralph Noriega MD Work Phone: [facility] 10-27-2022 08:55-0500 Body mass index (BMI) [Ratio] 35.72 kg/m2 Ralph Noriega MD Work Phone: [facility] 10-27-2022 08:55-0500 Body weight 108.14 kg Ralph Noriega MD Work Phone: [facility] 10-27-2022 08:55-0500 Diastolic blood pressure 73 mm[Hg] Ralph Noriega MD Work Phone: [facility] 10-27-2022 08:55-0500 Heart rate 57 /min Ralph Noriega MD Work Phone: [facility] 10-27-2022 08:55-0500 Systolic blood pressure 176 mm[Hg] Ralph Noriega MD Work Phone: [facility] 10-16-2022 12:51-0500 Body height 174 cm iMlena Herman INTERNAL GRINDER TENDER.TOOL CHECKER Work Phone: [facility] 10-16-2022 12:51-0500 Body weight 108.41 kg Milena Herman INTERNAL GRINDER TENDER.TOOL CHECKER Work Phone: [facility] 10-16-2022 12:51-0500 Diastolic blood pressure 92 mm[Hg] Milena Herman INTERNAL GRINDER TENDER.TOOL CHECKER Work Phone: [facility] 10-16-2022 12:51-0500 Heart rate 64 /min Milena Herman INTERNAL GRINDER TENDER.TOOL CHECKER Work Phone: [facility] 10-16-2022 12:51-0500 Systolic blood pressure 140 mm[Hg] Milena Virgil DUBOIS Work Phone: [facility] 05-27-2022 18:16-0400 Diastolic blood pressure 98 mm[Hg] VIVI MENDEZ MD [facility] 05-27-2022 18:16-0400 Systolic blood pressure 160 mm[Hg] VIVI MENDEZ MD [facility] 05-27-2022 15:39-0400 Body temperature 98.06 [degF] VIVI MENDEZ MD [facility] 05-27-2022 15:39-0400 Diastolic blood pressure 84 mm[Hg] VIVI MENDEZ MD [facility] 05-27-2022 15:39-0400 Heart rate 55 /min VIVI MENDEZ MD [facility] 05-27-2022 15:39-0400 Respiratory rate 18 /min VIVI MENDEZ MD [facility] 05-27-2022 15:39-0400 Systolic blood pressure 135 mm[Hg] VIVI MENDEZ MD [facility] 05-27-2022 11:17-0400 Body temperature 98.24 [degF] VIVI MENDEZ MD [facility] 05-27-2022 11:17-0400 Diastolic blood pressure 66 mm[Hg] VIVI MENDEZ MD [facility] 05-27-2022 11:17-0400 Heart rate 62 /min VIVI MENDEZ MD [facility] 05-27-2022 11:17-0400 Respiratory rate 20 /min VIVI MENDEZ MD [facility] 05-27-2022 11:17-0400 Systolic blood pressure 111 mm[Hg] VIVI MENDEZ MD [facility] 05-27-2022 07:47-0400 Body temperature 98.06 [degF] VIVI MENDEZ MD [facility] 05-27-2022 07:47-0400 Heart rate 57 /min VIVI MENDEZ MD [facility] 05-27-2022 07:47-0400 Mean blood pressure 120 mm[Hg] VIVI MENDEZ MD [facility] 05-27-2022 07:47-0400 Reason For Taking VItal Signs VIVI MENDEZ MD [facility] 05-27-2022 07:47-0400 Respiratory rate 20 /min VIVI MENDEZ MD [facility] 05-27-2022 05:11-0400 Mean blood pressure 95 mm[Hg] VIVI MENDEZ MD [facility] 05-27-2022 05:11-0400 Reason For Taking VItal Signs VIVI MENDEZ MD [facility] 05-26-2022 23:03-0400 Mean blood pressure 94 mm[Hg] VIVI MENDEZ MD [facility] 05-26-2022 23:03-0400 Reason For Taking VItal Signs VIVI MENDEZ MD [facility] 05-26-2022 19:53-0400 Diastolic Blood Pressure NBP 84 1 VIVI MENDEZ MD [facility] 05-26-2022 19:53-0400 Mean blood pressure 104 mm[Hg] VIVI MENDEZ MD [facility] 05-26-2022 19:53-0400 Systolic Blood Pressure NBP 161 1 VIVI MENDEZ MD [facility] 05-26-2022 13:38-0400 Diastolic Blood Pressure NBP 72 1 VIVI MENDEZ MD [facility] 05-26-2022 13:38-0400 Systolic Blood Pressure NBP 136 1 VIVI MENDEZ MD [facility] 05-26-2022 08:46-0400 Diastolic Blood Pressure NBP 85 1 VIVI MENDEZ MD [facility] 05-26-2022 08:46-0400 Mean blood pressure 103 mm[Hg] VIVI MENDEZ MD [facility] 05-26-2022 08:46-0400 Systolic Blood Pressure NBP 162 1 VIVI MENDEZ MD [facility] 05-26-2022 03:51-0400 Mean blood pressure 80 mm[Hg] VIVI MENDEZ MD [facility] 05-24-2022 21:55-0400 Body height 175.3 cm VIVI MENDEZ MD [facility] 05-24-2022 21:55-0400 Body weight 113 kg VIVI MENDEZ MD [facility] 05-24-2022 21:55-0400 Body weight 36.77 kg/m2 VIVI MENDEZ MD [facility] 05-24-2022 14:06-0400 Body weight 113 kg VIVI MENDEZ MD [facility] 05-24-2022 14:06-0400 Heart rate 60 /min VIVI MENDEZ MD [facility] 05-15-2022 09:33-0400 Diastolic blood pressure 92 mm[Hg] Dr. Razia Maya Work Phone: [facility] Work Phone: 05-15-2022 09:33-0400 Systolic blood pressure 188 mm[Hg] Dr. Razia Maya Work Phone: [facility] Work Phone: 05-15-2022 08:59-0400 Body height 177.[address] Razia Maya Work Phone: [facility] Work Phone: 05-15-2022 08:59-0400 Body mass index (BMI) [Ratio] 35.7 kg/m2 Dr. Razia Maya Work Phone: [facility] Work Phone: 05-15-2022 08:59-0400 Body weight 112.[address] Razia Maya Work Phone: [facility] Work Phone: 05-15-2022 08:59-0400 Heart rate 62 /min Dr. Razia Maya Work Phone: [facility] Work Phone: 05-15-2022 08:59-0400 Respiratory rate 16 /min Dr. Razia Maya Work Phone: [facility] Work Phone: 05-15-2022 08:59-0400 SaO2% (BldA) [Mass fraction] 96 % Dr. Razia Maya Work Phone: [facility] Work Phone: 12-16-2016 15:55-0400 BMI (Body Mass Index) 36.73 kg/m2 Merly [facility] [employer] Work Phone: 12-16-2016 15:55-0400 BP Diastolic 72 mm[Hg] [facility] Work Phone: 12-16-2016 15:55-0400 BP Systolic 132 mm[Hg] Merly Seth RN [facility] Work Phone: 12-16-2016 15:55-0400 Height 177.8 cm Merly Seth RN [facility] Work Phone: 12-16-2016 15:55-0400 Pulse (Heart Rate) 68 /min Merly Seth RN [facility] Work Phone: 12-16-2016 15:55-0400 Respiratory Rate 18 /min Merly Seth RN [facility] [employer] Work Phone: 12-16-2016 15:55-0400 Weight 116.12 kg Merly Seth RN [facility] [employer] Work Phone: 02-18-2016 07:58-0400 Body Temperature 98 [degF] Merly Seth RN [facility] [employer] [facility] Work Phone: 02-18-2016 07:58-0400 BSA (Body Surface Area) 2.3 m2 Merly Seth RN [facility] [employer] Work Phone: 02-18-2016 07:58-0400 Pulse Oximetry 97 % Merly Seth RN [employer] [employer] Work Phone: 12-27-2015 16:06-0400 Pulse Oximetry 96 % Merly Seth RN [facility] [employer] Work Phone: Encounters Encounter Date Encounter Type Care Provider Facility Start: 06-09-2025 ambulatory [facility] Facility: [facility] Start: 06-07-2025 End: 06-07-2025 ambulatory [facility] Facility:[id number] Start: 05-11-2025 End: 05-11-2025 Office outpatient visit 15 minutes Ralph Noriega MD Work Phone: [facility] Comment on above: Essential tremor (Pr imary Dx); Parkinson's disease with fluctuating manifestations, unspecified whether dyskinesia present (HCC); Parkinson disease (HCC) Start: 05-11-2025 End: 05-11-2025 ambulatory RALPH NORIEGA [facility] Start: 03-26-2025 End: 03-26-2025 Subsequent hospital visit by physician Ira Munguia Work Phone: [facility] Comment on above: Chest congestion [R0 9.89] Start: 03-26-2025 End: 03-26-2025 ambulatory SELF Facility:[id number] Start: 03-26-2025 End: 03-26-2025 Office outpatient visit 25 minutes Teresa Gila DO Work Phone: [facility] Comment on above: Chest congestion (Pr imary Dx); Sinobronchitis Start: 03-09-2025 End: 03-09-[address] Razia Maya DO Work Phone: -Laboratory Start: 03-09-2025 End: 03-09-[address] Razia Maya DO -Laboratory Work Phone: Start: 03-09-2025 End: 03-09-2025 ambulatory Razia Maya Facility:[facility] Start: 01-18-2025 End: 01-18-2025 Office outpatient visit 15 minutes Ralph Noriega MD Work Phone: [facility] Comment on above: Parkinson's disease with fluctuating manifestations, unspecified whether dyskinesia present (HCC) (Primary Dx); Essential tremor; Parkinson disease (HCC) Start: 01-18-2025 End: 01-18-2025 ambulatory [facility] Start: 12-13-2024 End: 12-13-2024 Patient encounter procedure Milton Basilio DO Work Phone: [facility] Comment on above: Essential hypertensi on, benign (Primary Dx); Chronic diastolic HF (heart failure) (HCC); Aortic valve stenosis, etiology of cardiac valve disease unspecified; PATRICIO (obstructive sleep apnea); Hyperlipidemia LDL goal <70; Chronic kidney disease, unspecified CKD stage; History of echocardiogram; History of cardiac cath; History of stress test; Non-smoker Start: 12-13-2024 End: 12-13-2024 ambulatory RAZIA MAYA Facility:[id number] Start: 12-07-2024 End: 12-07-2024 Patient encounter procedure Betsy Montoya PA-C -[facility] Work Phone: Start: 12-07-2024 End: 12-07-2024 ambulatory Razia Maya Facility:[facility] Start: 12-02-2024 End: 12-02-[address] Razia Maya DO Work Phone: [facility] Work Phone: Start: 12-02-2024 End: 12-02-[address] Razia Maya DO -[facility] Start: 12-02-2024 End: 12-02-2024 ambulatory [facility] Facility:[facility] Start: 11-30-2024 Encounter for other preprocedural examination Kathy Boss [facility] Start: 11-24-2024 ambulatory [facility] Facility: [facility] Start: 11-24-2024 Non-patient / Non-visit Dr. Yogesh Boss MD -[facility] Start: 11-24-2024 End: 11-24-2024 Non-patient / Non-visit Dr. Federico Chacko MD -[facility] Work Phone: Start: 11-24-2024 End: 11-24-2024 Admission to same day surgery center Dr. Kathy Boss MD -[facility] Start: 11-24-2024 End: 11-24-[address] Razia Maya DO Work Phone: [facility] Work Phone: Start: 11-11-2024 Non-patient / Non-visit Dr. Yogesh Boss MD -[facility] Start: 11-11-2024 End: 11-11-2024 Admission to same day surgery center Dr. Kathy Boss MD -Endoscopy Work Phone: Start: 11-11-2024 End: 11-11-[address] Razia Maya DO Work Phone: [facility] Work Phone: Start: 11-07-2024 End: 11-07-[address] Kathy Boss MD -[facility] Work Phone: Start: 11-07-2024 End: 11-07-2024 ambulatory Razia Maya Facility:[facility] Start: 11-07-2024 ambulatory Razia Francesco Facility: [facility] Start: 10-27-2024 End: 10-27-[address] Razia Maya DO Work Phone: [facility] Work Phone: Start: 10-27-2024 End: 10-27-2024 Patient encounter procedure Sera MAYC -Ultrasound, [facility] Work Phone: Start: 10-27-2024 End: 10-27-2024 ambulatory Razia [facility] Facility:[facility] Start: 10-24-2024 End: 10-24-[address] Razia Maya DO Work Phone: [facility] Work Phone: Start: 10-24-2024 End: 10-24-2024 Patient encounter procedure Sera Ozuna NP-C -Laboratory, [place] [facility] Start: 10-24-2024 End: 10-24-2024 ambulatory Razia [facility] Facility:[facility] Start: 09-27-2024 Non-patient / Non-visit Dr. Gail Maya DO Work Phone: -[facility] Work Phone: Start: 09-27-2024 ambulatory Razia [facility] Facility: [facility] Start: 09-19-2024 End: 09-19-[address] Razia Maya DO -Laboratory Work Phone: Start: 09-19-2024 End: 09-19-2024 ambulatory Razia [facility] Facility:[facility] Start: 06-30-2024 End: 06-30-2024 ambulatory [facility] Facility:[facility] Start: 06-23-2024 End: 06-23-2024 ambulatory [facility] Facility:[facility] Start: 06-20-2024 End: 06-20-2024 Refill Milena Herman APRN.CNP Work Phone: [facility] Comment on above: Refill Request Start: 04-12-2024 End: 04-12-2024 ambulatory [facility] Facility:[facility] Start: 04-05-2024 Telephone encounter Milena calvert INTERNAL GRINDER TENDER.TOOL CHECKER Work Phone: [facility] Comment on above: Results (Echocardiog nate) Start: 04-01-2024 End: 04-01-2024 ambulatory MILENA HERMAN Facility:[id number] Start: 03-31-2024 Telephone encounter Milena calvert INTERNAL GRINDER TENDER.TOOL CHECKER Work Phone: [facility] Comment on above: Appointment (Reminde r) Start: 03-21-2024 End: 03-21-2024 ambulatory Razia Maya Facility:[facility] Start: 03-14-2024 End: 03-14-2024 Patient encounter procedure Milena Herman INTERNAL GRINDER TENDER.TOOL CHECKER Work Phone: [facility] Comment on above: Chronic diastolic HF (heart failure) (HCC) (Primary Dx); Essential hypertension, benign; History of echocardiogram; History of cardiac cath; History of stress test; Never smoked cigarettes Start: 01-19-2024 End: 01-19-2024 Office outpatient visit 25 minutes Ralph Noriega MD Work Phone: [employer] [facility] Comment on above: Parkinson's disease with fluctuating manifestations, unspecified whether dyskinesia present (HCC) (Primary Dx); Essential tremor Start: 12-22-2023 End: 12-23-2023 ambulatory ADELINA GUERRA DO Facility:A Start: 12-19-2023 End: 12-19-2023 Emergency department patient visit VIOLETTE HAUSER MD Facility:[facility] Start: 11-27-2023 End: 11-28-2023 ambulatory ADELINA GUERRA DO Facility:[facility] Start: 11-04-2023 End: 11-04-2023 ambulatory [facility] Work Phone: Start: 11-04-2023 End: 11-04-2023 Patient encounter procedure [facility]-Laboratory Work Phone: Start: 10-29-2023 End: 10-29-2023 Office outpatient visit 25 minutes Ralph Noriega MD Work Phone: [facility] Comment on above: Parkinson's disease with fluctuating manifestations, unspecified whether dyskinesia present (Primary Dx); Essential tremor; Myalgia; Parkinson disease Start: 10-28-2023 Telephone encounter Milton Basilio DO Work Phone: [facility] Comment on above: Patient Question Start: 10-27-2023 End: 10-27-2023 Emergency department patient visit DR RAZIA MAYA DO Facility:[facility] Start: 10-22-2023 End: 10-22-2023 Patient encounter procedure [facility], [place] [facility] Start: 10-21-2023 End: 10-21-2023 Patient encounter procedure Day Hernandez DO Work Phone: [facility] Comment on above: Acute otitis externa of both ears, unspecified type (Primary Dx) Start: 10-09-2023 End: 10-10-2023 ambulatory ADELINA GUERRA DO Facility:[facility] Start: 07-28-2023 End: 07-28-2023 Office outpatient visit 25 minutes Ralph Noriega MD Work Phone: [facility] Comment on above: Parkinson's disease with fluctuating manifestations, unspecified whether dyskinesia present (Primary Dx); Essential tremor; Parkinson disease Start: 07-24-2023 End: 07-25-2023 ambulatory ADELINA GUERRA DO Facility:[facility] Start: 07-08-2023 End: 07-13-2023 ambulatory SHERICE MELVIN APRN-TOOL CHECKER Facility:A Start: 06-26-2023 End: 06-26-2023 ambulatory [facility] Work Phone: Start: 06-26-2023 End: 06-26-2023 Patient encounter procedure [facility]-Radiology, [facility] Work Phone: Start: 06-12-2023 End: 06-12-2023 Patient encounter procedure Milton Basilio DO Work Phone: [facility] Comment on above: Hypertension, unspec ified type (Primary Dx); Stage 3a chronic kidney disease (HCC); Hyperlipidemia LDL goal <70; PATRICIO (obstructive sleep apnea); Chronic diastolic congestive heart failure (HCC); History of echocardiogram; History of cardiac cath; History of stress test; Non-smoker Start: 04-30-2023 End: 05-05-[address] RAZIA MAYA DO Facility:A Start: 04-27-2023 Refill Ralph Noriega MD Work Phone: [facility] Start: 04-27-2023 End: 04-27-2023 Office outpatient visit 25 minutes Ralph Noriega MD Work Phone: [facility] Comment on above: Parkinson disease (H CC) (Primary Dx); Essential tremor Start: 03-29-2023 End: 03-29-2023 ambulatory SIM ALBA PA-C Facility:A Start: 03-13-2023 End: 03-13-2023 Office outpatient visit 25 minutes Ralph Noriega MD Work Phone: [facility] Comment on above: Parkinson disease (H CC) (Primary Dx); Essential tremor Start: 03-09-2023 End: 03-09-[address] Razia Maya Work Phone: [facility] Work Phone: Start: 03-09-2023 End: 03-09-[address] [facility] Start: 03-02-2023 End: 03-07-2023 ambulatory ADELINA GUERRA DO Facility:A Start: 01-27-2023 End: 02-01-2023 ambulatory SHERICE MELIVN INTERNAL GRINDER TENDER-TOOL CHECKER Facility:A Start: 01-21-2023 End: 01-21-[address] Razia Maya Work Phone: [facility] Work Phone: Start: 01-07-2023 Non-patient / Non-visit Dr. Gail Maya Work Phone: [facility] Start: 01-07-2023 End: 01-07-2023 Admission to same day surgery center Dr. Razia Maya Work Phone: [facility] Start: 01-07-2023 End: 01-07-[address] Razia Maya Work Phone: [facility] Work Phone: Start: 01-05-2023 End: 01-10-2023 ambulatory ADELINA GUERRA DO Facility:A Start: 12-11-2022 End: 12-11-2022 ambulatory RAZIA MAYA Facility:[facility] Start: 12-02-2022 End: 12-02-[address] Razia Maya Work Phone: [facility] Work Phone: Start: 12-02-2022 End: 12-02-[address] Razia Maya Work Phone: [facility] Start: 11-13-2022 End: 11-13-2022 ambulatory RAZIA MAYA Facility:[facility] Start: 11-11-2022 End: 11-11-[address] Razia Maya Work Phone: [facility] Start: 11-04-2022 End: 11-04-[address] Razia Maya Work Phone: [facility] Work Phone: Start: 11-04-2022 End: 11-04-[address] [facility] Start: 10-27-2022 End: 10-27-2022 Office outpatient visit 40 minutes Ralph Noriega MD Work Phone: [facility] Comment on above: Parkinson disease (H CC) (Primary Dx); Essential tremor; Lumbar radiculopathy, right; Hypertension, unspecified type; Generalized pruritus Start: 10-16-2022 End: 10-16-2022 ambulatory MILENA HERMAN Facility:[facility] Start: 10-16-2022 End: 10-16-2022 Patient encounter procedure Milena Herman SHERLY Work Phone: [facility] Comment on above: Chronic diastolic HF (heart failure) (HCC) (Primary Dx); Aortic valve stenosis, etiology of cardiac valve disease unspecified; Essential hypertension; PATRICIO (obstructive sleep apnea); History of echocardiogram; Abnormal renal ultrasound; Never smoked cigarettes; History of cardiac cath; Stage 3a chronic kidney disease (HCC) Start: 10-06-2022 Telephone encounter Ralph ann MD Work Phone: [facility] [place] Comment on above: Med Refill Start: 06-20-2022 End: 06-20-[address] Razia Maya Work Phone: [facility] Work Phone: Start: 06-20-2022 End: 06-20-[address] Razia Maya Work Phone: [facility] Start: 05-30-2022 End: 05-30-[address] Razia Maya Work Phone: [facility] Work Phone: Start: 05-30-2022 End: 05-30-[address] Razia Maya Work Phone: [facility] Start: 05-28-2022 Non-patient / Non-visit Dr. Gail Maya Work Phone: [facility] Start: 05-28-2022 Non-patient / Non-visit Dr. Gail Maya Work Phone: [facility] Start: 05-28-2022 End: 05-28-[address] Razia Maya Work Phone: [facility] Start: 05-24-2022 End: 05-27-2022 Evaluation and management of inpatient VIVI MENDEZ MD [facility] Start: 05-15-2022 End: 05-15-[address] Razia Maya Work Phone: [facility] Start: 02-13-2022 End: 02-13-2022 Patient encounter procedure [facility] Start: 12-30-2021 End: 12-30-2021 Patient encounter procedure [facility] Start: 11-27-2021 End: 11-27-2021 Patient encounter procedure [facility] Start: 11-19-2021 End: 11-19-2021 Patient encounter procedure [facility] Start: 11-08-2021 End: 11-08-2021 Patient encounter procedure [facility] Start: 09-25-2021 End: 09-25-2021 Patient encounter procedure [facility] Services/Neurology Start: 09-23-2021 End: 09-23-2021 Patient encounter procedure [facility] Start: 09-20-2021 End: 09-20-2021 Patient encounter procedure [facility]-Cat Scan, [facility] Procedures Date Procedure Procedure Detail Performing Clinician Start: 03-09-2025 Serum inorganic phos phate measurement Dr. Razia Maya DO Work Phone: Start: 12-13-2024 Ecg routine ecg w/le ast 12 lds i&r only Milton Basilio DO Work Phone: Start: 12-02-2024 Serum inorganic phos phate measurement Dr. Razia Maya DO Work Phone: Start: 11-24-[address] Razia Maya DO Work Phone: Start: 11-11-[address] Razia wells DO Work Phone: Start: 10-27-[address] Razia Maya DO Work Phone: Start: 03-14-2024 Ecg routine ecg w/le ast 12 lds i&r only Milena Herman APRN.CNP Work Phone: Start: 06-26-2023 Plain chest X-ray Start: 06-12-2023 Ecg routine ecg w/le ast 12 lds i&r only Milton Basilio DO Work Phone: Start: 01-07-2023 Laparoscopic repair of hernia of anterior abdominal wall Dr. Razia Maya Work Phone: Start: 03-11-2022 Injection into lumba r epidural space VIVI MENDEZ MD Start: 02-13-2022 MRI of lumbar spine Start: 12-29-2021 Laser ablation of lo ng saphenous vein VIVI MENDEZ MD Start: 11-27-2021 Radiography of ankle Start: 11-27-2021 Radiologic examinati on of knee Start: 09-20-2021 CT of chest without contrast Start: 02-18-2016 End: 02-18-2016 Thyroid stimulating hormone (TSH) Razia Allen LuzFrancesco DO Work Phone: Start: 12-27-2015 End: 12-27-2015 NANCY Chacko MD Start: 12-27-2015 End: 12-27-2015 Follow Up Appt 1 year Federico Chacko MD Start: 07-25-2015 End: 07-25-2015 NANCY Chacko MD Start: 07-25-2015 End: 12-26-2015 [facility] Federico Chacko MD Start: 07-25-2015 End: 07-25-2015 Follow Up Appt 6 months Stephan Canas Start: 06-20-2015 End: 12-27-2015 NANCY Chacko MD Start: 06-20-2015 End: 06-21-2015 Documentation of current medications Federico Chacko MD Start: 06-20-2015 End: 12-26-2015 Electrocardiogram, complete Federico Chacko MD Start: 06-20-2015 End: 12-27-2015 Follow Up Appt 1 month Federico Chacko MD Start: 08-31-1981 Retroperitoneal lymp h node dissection VIVI MENDEZ MD Start: 08-31-1955 Tonsillectomy VIVI FRANCE MD History of cholecystectomy S/P laparoscopic cholecystectomy Dr. Razia Maya DO Work Phone: History of cholecystectomy S/P laparoscopic cholecystectomy Betsy Montoya PA-C History of colonoscopy DAVID MENDEZ MD Comment on above: with removal of poly p Total orchidectomy VIVI FRANCE MD Plan of Treatment Date Care Activity Detail Author Start: 07-24-2025 End: 07-24-2025 Patient encounter procedure 07/24/2025 10:20 AM EST Office Visit [facility] [address] [place] [address] Ralph Noriega MD [address] [facility] [address] [place] [address] [facility] Start: 06-14-2025 End: 06-14-2025 Patient encounter procedure 06/14/2025 10:40 AM EDT Office Visit [facility] [address] [place] [address] [place] [address] Sultana Bacon APRN.[facility] [address] [place] [address] 6 month f/u [facility] Comment on above: 6 month f/u Start: 05-11-2025 End: 05-11-2025 Patient encounter procedure 05/11/2025 10:20 AM EDT Office Visit [facility] [address] [place] [phone] Ralph Noriega MD [address] [address] [facility] Start: 05-01-2025 COVID-19 Vaccine ( season) COVID-19 Vaccine ( season) [facility] Start: 05-01-2025 Influenza vaccination [facility] Start: 01-18-2025 End: 01-18-2025 Patient encounter procedure 01/18/2025 10:00 AM EDT Office Visit [facility] [address] [facility] [address] [place] [phone] Ralph Noriega MD [address] [address] [facility] Start: 01-07-2025 Covid-19 Vaccine ( season) Covid-19 Vaccine ( season) [facility] Start: 12-13-2024 End: 12-13-2024 Patient encounter procedure [facility] Comment on above: 9 month follow up Start: 11-24-2024 Anes intraperitoneal upper abdomen w/laps nos ANES IPER UPR ABD NOS [facility] Start: 11-24-2024 Laparoscopy surg cholecystectomy LAPAROSCOPIC CHOLECYSTECTOMY [facility] Start: 11-24-2024 Patient discharge [facility] Start: 11-11-2024 Colonoscopy w/biopsy single/multiple COLONOSCOPY AND BIOPSY [facility] Start: 11-11-2024 Colsc flx w/rmvl of tumor polyp lesion snare tq COLONOSCOPY W/LESION REMOVAL [facility] Start: 11-11-2024 Egd transoral biopsy single/multiple EGD BIOPSY SINGLE/MULTIPLE [facility] Start: 11-11-2024 Patient discharge [facility] Start: 08-31-2024 Advance Directive Discussion Advance Directive Discussion [facility] Start: 08-31-2024 Medicare Advantage Annual Wellness Visit Medicare Advantage Annual Wellness Visit [facility] Start: 05-01-2024 COVID-19 Vaccine ( season) COVID-19 Vaccine () [facility] Start: 05-01-2024 Covid-19 Vaccine () Covid-19 Vaccine () [facility] Start: 05-01-2024 Influenza vaccination [facility] Start: 04-04-2024 End: 04-04-2024 Patient encounter procedure 04/04/2024 3:00 PM EDT Appointment [facility] [address] [place], [place] [id number] Chronic diastolic HF (heart failure) (HCC) [I50.32] [facility] Comment on above: Chronic diastolic HF (heart failure) (HC C) [I50.32] Start: 04-01-2024 End: 04-01-2024 Patient encounter procedure 04/01/2024 3:00 PM EDT Office Visit [facility] [address] [facility] [place] [place] [address] Chronic diastolic HF (heart failure) (HCC) [I50.32] [facility] Comment on above: Chronic diastolic HF (heart failure) (HC C) [I50.32] Start: 01-19-2024 End: 01-19-2024 Patient encounter procedure 01/19/2024 9:30 AM EDT Office Visit [facility] [address] [place] [address] Ralph Noriega MD [address] [place] [address] [facility] Start: 11-04-2023 Procedure [facility] Start: 11-04-2023 Procedure [facility] Start: 10-29-2023 End: 10-29-2023 Patient encounter procedure 10/29/2023 10:00 AM EST Office Visit [facility] [address] [place] [phone] Ralph Noriega MD [address] [place] [address] [facility] Start: 10-04-2023 Covid-19 Vaccine () Covid-19 Vaccine () [facility] Start: 08-31-2023 Advance Directive Discussion Advance Directive Discussion [facility] Start: 08-31-2023 Behavioral Health Screening Behavioral Health Screening [facility] Start: 08-31-2023 Depression Assessment Depression Assessment [facility] Start: 08-31-2023 Medicare Advantage Annual Wellness Visit Medicare Advantage Annual Wellness Visit [facility] Start: 07-28-2023 End: 07-28-2023 Patient encounter procedure 07/28/2023 9:30 AM EST Office Visit [facility] [address] [facility] [address] [place] [phone] Ralph Noriega MD [address] [address] [facility] Start: 05-01-2023 COVID-19 Vaccine ( season) COVID-19 Vaccine () [facility] Start: 05-01-2023 Influenza vaccination Influenza Vaccine (#1) [facility] Start: 04-27-2023 End: 04-27-2023 Patient encounter procedure [facility] Start: 01-07-2023 Anes hrna rpr upr abd lmbr&ventral hernia&dehisc ANESTH REPAIR OF HERNIA [facility] Start: 01-07-2023 RPR AA HRN 3- RDC RPR AA HRN - RDC [facility] Start: 01-07-2023 Patient discharge [facility] Start: 10-27-2022 End: 10-27-2022 Patient encounter procedure 10/27/2022 Office Visit Neurology Ralph Noriega MD [address] [address] [facility] [place] Start: 08-31-2022 ADVANCE DIRECTIVE DISCUSSION ADVANCE DIRECTIVE DISCUSSION [facility] Start: 08-31-2022 DEPRESSION ASSESSMENT DEPRESSION ASSESSMENT [facility] Start: 06-15-2022 COVID-19 Vaccine (5 - Booster for Moderna series) COVID-19 Vaccine (5 - Booster for Moderna series) [facility] Start: 12-16-2017 End: 12-16-2017 Appointment Appointment [facility] Work Phone: Start: 12-16-2016 End: 12-16-2016 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 [facility] Work Phone: Start: 12-16-2016 End: 12-16-2016 Follow Up Appt 1 year Follow Up Appt 1 year [facility] Work Phone: Start: 02-18-2016 End: 02-18-2016 Thyroid stimulating hormone (TSH) *TSH [facility] Work Phone: Start: 12-27-2015 End: 12-27-2015 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 [facility] Work Phone: Start: 12-27-2015 End: 12-27-2015 Follow Up Appt 1 year Follow Up Appt 1 year [facility] Work Phone: Start: 11-23-2015 Pneumococcal Vaccine: 65+ Years (1 - PCV) Pneumococcal Vaccine: 65+ Years (1 - PCV) [facility] Start: 11-23-2015 Pneumococcal Vaccine: 65+ Years (1 of 1 - PCV) Pneumococcal Vaccine: 65+ Years (1 of 1 - PCV) [facility] Start: 07-25-2015 End: 07-25-2015 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 [facility] Work Phone: Start: 07-25-2015 End: 07-25-2015 Echocardiography Echocardiogram (complete) [facility] Work Phone: Start: 07-25-2015 End: 07-25-2015 Follow Up Appt 6 months Follow Up Appt 6 months [facility] Work Phone: Start: 06-20-2015 End: 12-27-2015 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 [facility] Work Phone: Start: 06-20-2015 End: 12-26-2015 Electrocardiogram, complete EKG (In office) [facility] Work Phone: Start: 06-20-2015 End: 12-27-2015 Follow Up Appt 1 month Follow Up Appt 1 month [facility] Work Phone: Start: 2010 RSV Immunization aged 60 or older (1 - 1-dose 60+ series) RSV Immunization aged 60 or older (1 - 1-dose 60+ series) [facility] Start: 2010 RSV Immunization for Adults (1 - Risk 60-74 years 1-dose series) RSV Immunization for Adults (1 - Risk 60-74 years 1-dose series) [facility] Start: 2000 Pneumococcal Vaccine: 50+ Years (1 of 1 - PCV) Pneumococcal Vaccine: 50+ Years (1 of 1 - PCV) [facility] Start: 2000 SHINGRIX VACCINE (1 of 2) SHINGRIX VACCINE (1 of 2) [facility] Start: 2000 Zoster Vaccines (1 of 2) Zoster Vaccines (1 of 2) [facility] Start: 11-23-1995 COLOGUARD (FIT-DNA) COLOGUARD (FIT-DNA) [facility] Start: 11-23-1995 Colonoscopy COLONOSCOPY [facility] Start: 11-23-1995 COLORECTAL CANCER SCREENING COLORECTAL CANCER SCREENING [facility] Start: 11-23-[address] COLONOGRAPHY [facility] Start: 11-23-1995 DIABETES SCREEN DIABETES SCREEN [facility] Start: 11-23-1995 Diabetes Screening Diabetes Screening [facility] Start: 11-23-1995 FECAL OCCULT BLOOD FECAL OCCULT BLOOD [facility] Start: 11-23-1995 Screening for malignant neoplasm of colon [facility] Start: 11-23-1995 SIGMOIDOSCOPY SIGMOIDOSCOPY [facility] Start: 1985 Lipid 1996 panel - Serum or Plasma Lipid Screening [facility] Start: 1985 Lipid panel Lipid Screening [facility] Start: 1985 LIPID SCREEN LIPID SCREEN [facility] Start: 1969 DTaP/Tdap/Td Vaccines (1 - Tdap) DTaP/Tdap/Td Vaccines (1 - Tdap) [facility] Start: 1969 Pneumococcal Vaccine: 50+ (1 of 2 - PCV) Pneumococcal Vaccine: 50+ (1 of 2 - PCV) [facility] Start: 1969 Urine microalbumin profile [facility] Start: 1968 ANNUAL PCP TEAM CHRONIC DISEASE VISIT ANNUAL PCP TEAM CHRONIC DISEASE VISIT [facility] Start: 1968 Anxiety Screening Anxiety Screening [facility] Start: 1968 BP Controlled (<130/80) BP Controlled (<130/80) [facility] Start: 1968 Complete blood count Hemoglobin/Hematocrit [facility] Start: 1968 Creatinine measurement Serum Creatinine [facility] Start: 1968 Depression Screening Depression Screening [facility] Start: 1968 Diabetes mellitus screening Diabetes Screening [facility] Start: 1968 Hemoglobin/Hematocrit Hemoglobin/Hematocrit [facility] Start: 1968 HEPATITIS C SCREENING HEPATITIS C SCREENING [facility] Start: 1968 Hepatitis C screening Hepatitis C Screening [facility] Start: 1968 Serum Creatinine Serum Creatinine [facility] Start: 1962 Depression Screening Depression Screening [facility] Start: 1956 Pneumococcal Vaccine: 65+ (1 - PCV) Pneumococcal Vaccine: 65+ (1 - PCV) [facility] Start: 1956 Pneumococcal Vaccine: 65+ (1 of 2 - PCV) Pneumococcal Vaccine: 65+ (1 of 2 - PCV) [facility] Start: 1956 PNEUMOCOCCAL: 65+ (1 - PCV) PNEUMOCOCCAL: 65+ (1 - PCV) [facility] Start: 1950 Creatinine measurement Creatinine Level [facility] Start: 1950 DISCONTINUED Medicare Advantage Annual Wellness Visit (AWV) DISCONTINUED Medicare Advantage Annual Wellness Visit (AWV) [facility] Start: 1950 Echocardiography Echocardiogram [facility] Start: 1950 Hepatitis B Vaccines (1 of 3 - 3-dose series) Hepatitis B Vaccines (1 of 3 - 3-dose series) [facility] Start: 1950 Lipid panel Lipid Panel [facility] Start: 1950 Medicare Advantage Annual Wellness Visit (AWV) Medicare Advantage Annual Wellness Visit (AWV) [facility] Start: 1950 Potassium measurement Potassium Level [facility] Start: 1950 Screening for malignant neoplasm of colon [facility] Colonoscopy [facility] Colonoscopy [facility] Complete blood count [facility] CT Abdomen and Pelvi s WO contrast [facility] ECG COMPLETE ECG COMPLETE ECG Routine Essential hypertension 10/16/2022 12:45 PM EST [facility] Work Phone: ECG COMPLETE ECG COMPLETE ECG Routine Hypertension, unspecified type 06/12/2023 9:45 AM EDT [facility] Work Phone: ECG COMPLETE ECG COMPLETE ECG Routine Essential hypertension, benign 03/14/2024 9:31 AM EDT [facility] ECG COMPLETE ECG COMPLETE ECG Routine Essential hypertension, benign 12/13/2024 9:54 AM EDT [facility] Work Phone: End: 03-14-2025 Echocardiography ECHO Cardiology Routine Chronic diastolic HF (heart failure) (HCC) 1 Occurrences starting 03/14/2024 until 03/14/2025 [facility] Work Phone: Comment on above: 1 Occurrences starting 03/14/2024 until 03/14/[address] [facility] Work Phone: End: 04-25-2026 XR Chest PA and Lateral XR CHEST 2V FRONTAL/LAT Radiology Routine Chest congestion Sinobronchitis 1 Occurrences starting 03/26/2025 until 04/25/2026 [facility] Work Phone: Comment on above: 1 Occurrences starting 03/26/2025 until 04/25/2026 XR Chest PA and Lateral XR CHEST 2V FRONTAL/LAT Radiology Routine Chest congestion Sinobronchitis 03/26/2025 2:32 PM EDT [facility] Immunizations Immunization Date Immunization Notes Care Provider Felix castellano 06-30-2024 influenza virus vaccine, unspecified formulation Teresa Gila DO Work Phone: [facility] 06-03-2023 influenza virus vaccine, unspecified formulation Milena Herman APRN.TOOL CHECKER Work Phone: [facility] 04-20-2022 influenza virus vaccine, unspecified formulation Ralph Noriega MD Work Phone: [facility] 2020 [facility] 10-25-2020 [facility] Payers Date Payer Category Payer Self-pay [id number] 2023 Medicare (Managed Care) [place] MEDIC ARE [id number] 2023 Medicare HMO [employer]URE [id number] 2023 Medicare [id number] 2022 Medicare [id number] 2022 Unknown [employer]THEM [employer] S AND BLUE SHIELD [facility] [id number] 2022-Present [phone] [address] [place] [address] HMO [id number] 2017 Unknown [id number] 1950 Unknown [id number] [id number] .2.627 1950 Unknown [id number] 2.16.840.1.184147.3.579 .2.62 1950 Unknown [id number] 2.16.840.1.079159.3.579 .2.627 1950 Unknown [id number] [id number] .2.62 1950 Unknown [id number] 2.16840.1.849554.3.579 .2.627 1950 Unknown [id number] 2.16.840.1.221094.3.579 .2.627 1950 Unknown [id number] 2.16.840.1.062982.3.579 .2.627 1950 Unknown [id number] 2.16.840.1.175462.3.579 .2.627 1950 Unknown [id number] 2.16.840.1.466356.3.579 .2.627 1950 Unknown [id number] 2.16.840.1.382337.3.579 .2.627 1950 Unknown [id number] 2.16.840.1.315344.3.579 .2.627 1950 Unknown [id number] 2.16.840.1.674857.3.579 .2.627 Medicare [id number] Medicare [id number] Private Health Insurance [facility] [id number] Unknown [id number] [id number] .2.462 Unknown [id number] 2.16.840.1.492894.3.579 .2.462 Unknown [id number] 2.16.840.1.219786.3.579 .2.462 Unknown [id number] 2.16.840.1.588846.3.579 .2.462 Unknown [id number] 2.16.840.1.308799.3.579 .2.462 Unknown [id number] 2.16.840.1.606593.3.579 .2.462 Unknown [id number] 2.16.840.1.993816.3.579 .2.462 Unknown [id number] 2.16.840.1.801913.3.579 .2.462 Unknown [id number] 2.16.840.1.040279.3.579 .2.462 Unknown [id number] 2.16.840.1.960777.3.579 .2.462 Unknown [id number] 2.16.840.1.938307.3.579 .2.462 Unknown [id number] 2.16.840.1.486019.3.579 .2.462 Unknown [id number] 2.16.840.1.219795.3.579 .2.462 Unknown [id number] 2.16.840.1.409065.3.579 .2.462 Unknown [id number] 2.16.840.1.654090.3.579 .2.462 Unknown [id number] 2.16.840.1.642750.3.579 .2.462 Unknown [id number] 2.16.840.1.424165.3.579 .2.462 Unknown [id number] 2.16.840.1.344551.3.579 .2.462 Unknown [id number] 2.16.840.1.305535.3.579 .2.462 Unknown [id number] 2..0.1.062110.3.579 .2.462 Social History Date Type Detail Facility Start: 07-05-2021 End: 12-31-2022 Tobacco smoking status NHIS Unknown if ever smoked [facility] Start: 11-26-2020 None [facility] Start: 11-26-2020 Spouse/ Signif icant Other [facility] Start: 01-21-2021 Non-smoker [facility] Start: 1950 Sex Assigned At Male [facility] Start: 04-22-2022 End: 08-12-2022 Tobacco smoking status Never smoked tobacco (finding) [facility] Sex Assigned At Sex [facility] Start: 08-12-2022 Tobacco use and exposure Smokeless tobacco non-user [facility] Start: 10-16-2022 End: 03-26-2025 Alcohol intake Ex-drinker (finding) [facility] Start: 1950 Sex Assigned At Not on file C [facility] Start: 03-13-2023 End: 05-11-2025 Alcohol intake Lifetime non-drinker (finding) [facility] Start: 10-27-2022 End: 05-11-2025 History of Social function [facility] Start: 10-27-2022 End: 05-11-2025 Tobacco use panel [facility] Start: 07-11-2022 Gender identity Identifies as male gender (finding) [facility] Start: 10-17-2022 End: 04-27-2023 Exposure to SARS-CoV-2 (event) Not sure [facility] National Score (1-100), lower number is lower risk 91 [facility] Start: 03-31-2022 End: 11-04-2024 Sex Male (finding) [facility] Medical Equipment Procedure Code Equipment Code Equipment Origin al Text Equipment Identifier Dates Robot-assisted laparoscopic cholecystectomy without cholangiography CLIP,HEMOLOCK [employer] WECK FDA Start: 11-24-2024 Robot-assisted laparoscopic cholecystectomy without cholangiography CLIP,HEMOLOCK MED WECK FDA Start: 11-24-2024 Robot-assisted laparoscopic cholecystectomy without cholangiography Plant polysaccharide haemostatic agent, bioabsorbable [id number] FDA Start: 11-24-2024 Robot-assisted laparoscopic cholecystectomy without cholangiography CLIP,HEMOLOCK MED WECK FDA Start: 11-24-2024 Robot-assisted laparoscopic cholecystectomy without cholangiography CLIP,HEMOLOCK [employer] WECK FDA Start: 11-24-2024 Repair, hernia, ventral or umbilical, laparoscopic TACKER,SECURE STRAP FDA Start: 01-07-2023 Repair, hernia, ventral or umbilical, laparoscopic ([id number]) Extra-gynaecological surgical mesh, composite-polymer [id number] FDA Start: 01-07-2023 Repair, hernia, ventral or umbilical, laparoscopic TACKER,SECURE STRAP FDA Start: 01-07-2023 Repair, hernia, ventral or umbilical, laparoscopic TACKER,SECURE STRAP FDA Start: 01-07-2023 Repair, hernia, ventral or umbilical, laparoscopic TACKER,SECURE STRAP FDA Start: 01-07-2023 Repair, hernia, ventral or umbilical, laparoscopic TACKER,SECURE STRAP FDA Start: 01-07-2023 Repair, hernia, ventral or umbilical, laparoscopic TACKER,SECURE STRAP FDA Start: 01-07-2023 Repair, hernia, ventral or umbilical, laparoscopic TACKER,SECURE STRAP FDA Start: 01-07-2023 Repair, hernia, ventral or umbilical, laparoscopic TACKER,SECURE STRAP FDA Start: 01-07-2023 Repair, hernia, ventral or umbilical, laparoscopic TACKER,SECURE STRAP FDA Start: 01-07-2023 Goals Date Patient Goal Desired Activity /State Personal health goal Functional Status Date Assessment Result Facility 05-27-2022 Functional Status [facility]av 05-27-2022 Functional Status Room check performed [facility] 05-27-2022 Functional Status Bed Bath Refused [facility] 05-27-2022 Functional Status [facility] 05-27-2022 Functional Status Hospital bed [facility] 05-26-2022 Functional Status [facility] 05-26-2022 Functional Status [facility] 05-26-2022 Functional Status [facility] 05-26-2022 Functional Status Done [facility] 05-26-2022 Functional Status Patient refused [facility] 05-25-2022 Functional Status [facility] 05-25-2022 Functional Status Breakfast Percent 100 A [facility] 05-24-2022 Functional Status Sensory Deficits None A [facility] 05-24-2022 Functional Status [facility] Mental Status Date Assessment Result Facility 11-24-2024 Cognitive function Voice/Name [facility] Work Phone: 11-11-2024 Cognitive function [facility]/Name [facility] Work Phone: 01-07-2023 Cognitive function Level Of Cons ciousness Awake;Alert;Appropriate;Follow s Commands [facility] Work Phone: 01-07-2023 Cognitive function Voice/Name [facility] Work Phone: 05-27-2022 Mental Status Orientation Oriented x 4 [facility] 05-27-2022 Mental Status [facility] 05-26-2022 Mental Status [facility] 05-26-2022 Mental Status Orientation Asse ssment Oriented x 4 [facility] 05-25-2022 Mental Status [facility] 05-25-2022 Mental Status [facility] Clinical Notes 05-24-2022 to 06-07-2025 Ralph Noriega MD - 05/11/2025 10:20 AM EDTPatient InstructionsPatient InstructionsSteve Banuelos RT(R) - 03/26/2025 1:40 PM Teresa Khalil DO - 03/26/2025 1:32 PM EDTPatient Instructions Note Date & Type Note Facility 06-07-2025 Note HNO ID: [id number] Author: SULTANA BACON APRN.TOOL CHECKER Service: ? Author Type: Nurse Practitioner Type: Progress Notes Filed: 06/07/2025 21:39 Note Text: Date: June 07, 2025 Chief Complaint: Aortic valve stenosis HISTORY OF PRESENT ILLNESS: Carolyn Abbott is a 74 year old male who presents for for follow-up for chronic hypertension and aortic valve stenosis. Patient states that he has been taking his medications as prescribed. Patient states that he plans to follow further with [facility] in [place] due to living close to that office. ALLERGIES Allergen Reactions Clindamycin Swelling Allopurinol Rash Other reaction(s): Possible cause of rash on legs: went away after stopping Simvastatin Myalgia Other reaction(s): myalgia Sulfa (Sulfonamide * Unknown PAST MEDICAL HISTORY: PAST MEDICAL HISTORY Diagnosis Date Abnormal renal ultrasound No evidence of hemodynamically significant arterial stenosis, involving the right renal artery. Consistent with less than 60% stenosis. No evidence of hemodynamically significant arterial stenosis, involving the left renal artery. Consistent with less than 60% stenosis. Aortic stenosis Bilateral leg pain foward emg results to [...] diastolic dysfunction. Mild aortic stenosis. History of echocardiogram 04/01/2024 LVEF 72%. Mild TR. Mild Mitral valve stenosis. Moderate Aortic valve stenosis: 1.24 cm?, peak gradient 52 mmHg. History of prostate cancer 1980 Diagnosed in mid , with some adenopathy in the abdomen History [...] degeneration PAST SURGICAL HISTORY Procedure Laterality Date REMOVAL GALLBLADDER 11/24/2024 REPAIR EPIGASTRIC HERNIA,REDUC 12/2022 ULTRASOUND GUIDANCE FOR [...] Status: MEDICATIONS: Current Outpatient Medications Medication Sig carbidopa-levodopa (SINEMET 25-100) 25-100 mg per tablet Take 2 tablets by mouth two times a day. carbidopa-levodopa CR (SINEMET CR) 50-200 mg per tablet Take 1 tablet by mouth daily at bedtime. cloNIDine HCl (CATAPRES) 0.1 mg tablet Take 0.1 mg by mouth three times a day as needed. pramipexole (MIRAPEX) 0.25 mg table (more content not included)... [facility] 05-11-2025 History of Presen t illness Narrative Images from the original note were not included. [facility] [address] [facility] [address] [facility] [address] Dept: [phone] Dept Loc: [phone] Visit type: Established Patient Reason for Visit: Follow-up and Parkinson's Disease Assessment and Plan 1. Essential tremor - primidone (Mysoline) 50 MG tablet; Take 4 tablets (200 mg) by mouth 2 times daily., Starting Rukhsana 05/11/2025, Until Thu08/09/2025, Normal 2. Parkinson's disease with fluctuating manifestations, unspecified whether dyskinesia present (HCC) - carbidopa-levodopa (Sinemet) 25-100 MG tablet; Take 2 tablets by mouth 2 times daily. AM and midday Do not start before May 22, 2025., Starting 05/22/2025, Until 08/20/2025, Normal - carbidopa-levodopa CR (Sinemet CR) 50-200 MG ER tablet; Take 1 tablet by mouth Nightly. Do not crush or chew. Do not start before May 22, 2025., Starting 05/22/2025, Until 08/20/2025, Normal Subjective HPI: He reports that the increase in the primidone did not help. He is more unsteady on his feet and he has to catch himself from falling forward. He is having more tremor and greater difficulty with walking. He reports that he had to have a cholecystectomy. He reports that he has tried increaseing the carb-levo without any improvement. He denies falls. He denies trouble swallowing. He does feel weak and wobbly when standing for a long time. He has been getting back to exercising on bike or treadmill. He is up to an hour for the bike and 45 min - 1 hour with the treadmill. He received a notice from [employer] that the hinkle of his carb-levo ER will more than double. REVIEW OF SYSTEMS: Review of Systems Constitutional: [...] pain and genital sores. Musculoskeletal: Positive for arthralgias and back pain. Negative for neck pain. Skin: Negative for color change. [...] reaction(s): myalgia Sulfa Antibiotics Current Outpatient Medications: alpha tocopherol (Vitamin E) 1000 units capsule, Take 1,000 Units by mouth daily., Disp: , Rfl: amLODIPine (Norvasc) 5 MG tablet, Take by mouth daily., Disp: , Rfl: cholecalciferol (Vitamin D-3) 50 MCG (2000 UT) capsule, Take by mouth., Disp: , Rfl: cloNIDine (Catapres) 0.1 MG tablet, Take 0.1 mg by mouth every 8 hours as needed., Disp: , Rfl: Cyanocobalamin (VITAMIN B 12 PO), Take by mouth., Disp: , Rfl: Ferrous Sulfate (SLOW FE PO), Take by mouth., Disp: , Rfl: hydrALAZINE (Apresoline) 25 MG tablet, Take 25 mg by mouth 4 times daily., Disp: , Rfl: hydroCHLOROthiazide (Microzide) 12.5 MG capsule, Take 12.5 mg by mouth daily. Takes 1 tab every other day., Disp: , Rfl: magnesium gluconate 250 MG tablet, 250 mg., Disp: , Rfl: nebivolol (Bystolic) 10 MG tablet, Take 10 mg by mouth daily., Disp: , Rfl: pramipexole (Mirapex) 0.25 MG tablet, Take 1 tablet (0.25 mg) by mouth 3 times daily., Disp: 270 tablet, Rfl: 0 betamethasone, augmented, (Diprolene AF) 0.05 % cream, APPLY TO THE AREAS OF RASH ON THE LEGS DAILY NEEDED (Patient not taking: Reported on 05/11/2025), Disp: , Rfl: [START ON 05/22/2025] carbidopa-levodopa (Sinemet) 25-100 MG tablet, Take 2 tablets by mouth 2 times daily. AM and midday Do not start before May 22, 2025., Disp: 270 tablet, Rfl: 3 [START ON 05/22/2025] carbidopa-levodopa CR (Sinemet CR) 50-200 MG ER tablet, Take 1 tablet by mouth Nightly. Do not crush or chew. Do not start before May 22, 2025., Disp: 90 tablet, Rfl: 3 hydrALAZINE (Apresoline) 50 MG tablet, Take by mouth., Disp: , Rfl: magnesium oxide (Mag-Ox) 400 MG tablet, Take 250 mg by mouth daily. (Patient not taking: Reported on 05/11/2025), Disp: , Rfl: omeprazole (PriLOSEC) [address] capsule, Take 40 mg by mouth daily., Disp: , Rfl: primidone (Mysoline) 50 MG tablet, Take 4 tablets (200 mg) by mouth 2 times daily., Disp: 720 tablet, Rfl: 3 Past Medical History: Diagnosis Date Back pain Cancer (CMS/HCC) (HCC) HL (hearing loss) Hypertension Lumbar stenosis Parkinson's disease (HCC) Sleep apnea Testicular cancer (HCC) Testicular carcinoma, right (HCC) Tremor Social History Tobacco Use Smoking status: Never Smokeless tobacco: Never Substance Use Topics Alcohol use: Never Past Surgical History: Procedure Laterality Date GALLBLADDER SURGERY 11/24/2024 HERNIA REPAIR 01/07/2023 OTHER SURGICAL HISTORY back injections TONSILLECTOMY (HISTORICAL) TUMOR REMOVAL VASCULAR SURGERY No family history on file. Objective Vitals: BP (!) 183/86 (BP Location: Left arm, Patient Position: Sitting, BP Cuff Size: Large adult) Pulse 60 Ht 5' 8.5 (1.74 m) Wt 220 lb (99.8 kg) BMI 32.96 kg/m General Appearance: Patient is in no apparent distress. Head is normocephalic, atraumatic Cardiovascular: Regular rate and rhythm. + heart murmurs. No carotid bruit Neurologic: Mentation: [...] tremor. Data Reviewed and Summarized DIAGNOSTIC TESTING IMPRESSION and PLAN: Diagnosis Plan 1. Essential tremor primidone (Mysoline) 50 MG tablet 2. Parkinson's disease with fluctuating manifestations, unspecified whether dyskinesia present (HCC) carbidopa-levodopa (Sinemet) 25-100 MG tablet carbidopa-levodopa CR (Sinemet CR) 50-200 MG ER tablet This was his original tremor years before the rest tremor and the cogwheeling and stooping/gait issues began. He is to increase primidone to 200 mg BID. Come 05/22, he is to switch the AM and midday doses of the carb-levo to the immed release 2 tabs of 25/100. We will keep him on the carb-levo ER 50/200 at night. Continue low dose mirapex. Ralph Noreiga MD I spent 30 minutes caring for this patient today, reviewing labs, records, seeing the patient, documenting in the record and arranging for studies. documented in this encounter [facility] 05-11-2025 Instructions Ralph Noriega MD - 05/11/2025 10:20 AM EDT Increase the primidone to 4 tabs twice a day. When you run out of the current carbidopa-levodopa ER around 05/22 this month, switch to two of the regular carbidopa-levodopa 25/100 tabs in the AM and two of the regular carbidopa-levodopa 25/100 tabs in the midday. We will keep you on the ER 50/200 at night. documented in this encounter [facility] 03-26-2025 Instructions Teresa Uriostegui DO - 03/26/2025 1:45 PM EDT ACUTE BRONCHITIS: You have acute bronchitis. This means the airway passages in your lungs are inflamed. Bronchitis may be caused by viruses or bacteria. Inhaling cigarette smoke will always make it worse. Exposure to irritating chemicals or second hand smoke as well as allergies can contribute to bronchitis. Repeat episodes of bronchitis may cause lifelong lung problems. Acute bronchitis is usually treated with rest, fluids, cough medicine, and possibly antibiotics or inhaled medicine to open up the small airways. It is very important that you avoid smoke and drink increased amounts of fluids. A cool air vaporizer can help thin bronchial secretions. This makes it easier to cough and clear your chest. If you are a cigarette smoker, consider using nicotine gum or skin patches to help you withdraw. Recovery from bronchitis is often slow, but you should start feeling better after 2-3 days of treatment. Please call your doctor or return here if you have any of the following symptoms: Increased fever, chills, or chest pain. Severe shortness of breath or bloody sputum. Do not improve after 3 days of proper treatment. documented in this encounter [facility] 03-26-2025 History of Presen t illness Narrative Radiology Service Progress Note PATIENT NAME: Carolyn Abbott DATE OF SERVICE: March 26, 2025 TIME: 2:07 PM PATIENT IDENTITY VERIFICATION COMPLETED USING TWO (2) IDENTIFIERS: Name and Date of confirmed by patient verbally. FALL SCREENING: Has the patient had 2 falls in the last year or 1 fall with injury or currently using an Ambulatory Assistive Device (Walker, Cane, Wheelchair, Crutches, etc.)? No PATIENT GENDER DATA: Assigned male at PATIENT RELEVANT IMPLANT DATA REVIEWED: Not Applicable PATIENT PRESENTS WITH AN IMPLANTABLE OR ATTACHED PHARMACY TECHNICIAN PROGRAM DIRECTOR: No RADIOLOGY DEPARTMENT: General X-ray: Exam(s) Completed: Chest X-Ray PERIPHERAL IV DATA: Not applicable SIGNED BY: RT Ariana(R) March 26, 2025 2:07 PM documented in this encounter [facility] 03-26-2025 Note HNO ID: [id number] Author: STEVE BANUELOS RT(R) Service: ? Author Type: Technologist Type: Progress Notes Filed: 03/26/2025 14:07 Note Text: Radiology Service Progress Note PATIENT NAME: Carolyn Abbott DATE OF SERVICE: March 26, 2025 TIME: 2:07 PM PATIENT IDENTITY VERIFICATION COMPLETED USING TWO (2) IDENTIFIERS: Name and Date of confirmed by patient verbally. FALL SCREENING: Has the patient had 2 falls in the last year or 1 fall with injury or currently using an Ambulatory Assistive Device (Walker, Cane, Wheelchair, Crutches, etc.)? No PATIENT GENDER DATA: Assigned male at PATIENT RELEVANT IMPLANT DATA REVIEWED: Not Applicable PATIENT PRESENTS WITH AN IMPLANTABLE OR ATTACHED PHARMACY TECHNICIAN PROGRAM DIRECTOR: No RADIOLOGY DEPARTMENT: General X-ray: Exam(s) Completed: Chest X-Ray PERIPHERAL IV DATA: Not applicable SIGNED BY: RT Ariana(Kira) March 26, 2025 2:07 PM [facility] 03-26-2025 Note HNO ID: [id number] Author: TERESA URIOSTEGUI DO Service: ? Author Type: Physician Type: Progress Notes Filed: 03/26/2025 13:48 Note Text: [facility] [place] Subjective Carolyn Abbott is a 74 year old male. Patient presents with: Cough: Congestion, drainage Started 3 days ago Cough Cough and Sputum Production: - Onset of cough on . - Sputum production began this morning; described as greenish-yellow. - Denies dyspnea, severe chest pain, or difficulty breathing. - No recent antibiotic use. COPD: - Denies use of inhalers or diuretics. Heartburn: - Managed by a clinical trial manager. Review of Systems Respiratory: Positive for cough. Cardiovascular: (-) chest pain Respiratory: (+) cough, (+) green-yellow sputum, (-) shortness of breath Objective BP 189/92 Pulse 62 Temp 36.7 ?C (98 ?F) Resp 18 Wt 100.7 kg (222 lb) SpO2 96% BMI 31.40 kg/m? Physical Exam General: No acute distress. HEENT: Tympanic membranes normal; oral mucosa normal; no significant nasal congestion. CV: No abnormalities auscultated. Midsystolic murmur present, history of aortic stenosis. Resp: Mild congestion, mild fluid sounds. Congestion seem to be worse in the bilateral bases anterior and posterior {ASSESSMENT/PLAN: 1. Chest congestion - ICD9: 786.9, ICD10: R09.89 (primary diagnosis) - XR CHEST 2V FRONTAL/LAT 2. Sinobronchitis - ICD9: 473.9, 490, ICD10: J32.9, J40 - Acute onset of cough with greenish-yellow sputum production since ; no dyspnea or chest pain. - Lungs with audible congestion on exam; no major nasal congestion or oropharyngeal inflammation. - Order chest X-ray to rule out pneumonia. X-rays do not show any obvious signs of pneumonia, cannot appreciate any obvious signs of fluid wave. Right diaphragm appears slightly elevated, however no signs of perforation, pneumothorax. - Will give a course of Z-Elkin and oral prednisone to help with swelling, prevent bronchitis/worsening infection. Continue Tylenol Motrin, [id number] decongestions and other conservative management for symptoms. Monitor closely and recheck with PCP if no improvement Recording using [employer] software for draft documentation of the visit was discussed with the patient/authorized loss control representative; all questions welcomed and answered. Patient/authorized loss control representative agreed to proceed - XR CHEST 2V FRONTAL/LAT Rock Gila, DO Differential Diagnoses - Chest congestion, sinobronchitis is more likely for the following reason(s): suggested by HANDP and consistent with imaging - Pneumonia, pneumothorax is less likely for the following reason(s): no evidence on imaging and HANDP not suggestive Disposition The patient was discharged. OTC Medications were advised: Procedures [facility] 03-26-2025 History of Presen t illness Narrative [facility] [place] Abbott is a 74 year old male. Patient presents with: Cough: Congestion, drainage Started 3 days ago Cough Cough and Sputum Production: - Onset of cough on . - Sputum production began this morning; described as greenish-yellow. - Denies dyspnea, severe chest pain, or difficulty breathing. - No recent antibiotic use. COPD: - Denies use of inhalers or diuretics. Heartburn: - Managed by a clinical trial manager. Review of Systems Respiratory: Positive for cough. Cardiovascular: (-) chest pain Respiratory: (+) cough, (+) green-yellow sputum, (-) shortness of breath Objective BP 189/92 Pulse 62 Temp 36.7 C (98 F) Resp 18 Wt 100.7 kg (222 lb) SpO2 96% BMI 31.40 kg/m Physical Exam General: No acute distress. HEENT: Tympanic membranes normal; oral mucosa normal; no significant nasal congestion. CV: No abnormalities auscultated. Midsystolic murmur present, history of aortic stenosis. Resp: Mild congestion, mild fluid sounds. Congestion seem to be worse in the bilateral bases anterior and posterior {ASSESSMENT/PLAN: 1. Chest congestion - ICD9: 786.9, ICD10: R09.89 (primary diagnosis) - XR CHEST 2V FRONTAL/LAT 2. Sinobronchitis - ICD9: 473.9, 490, ICD10: J32.9, J40 - Acute onset of cough with greenish-yellow sputum production since ; no dyspnea or chest pain. - Lungs with audible congestion on exam; no major nasal congestion or oropharyngeal inflammation. - Order chest X-ray to rule out pneumonia. X-rays do not show any obvious signs of pneumonia, cannot appreciate any obvious signs of fluid wave. Right diaphragm appears slightly elevated, however no signs of perforation, pneumothorax. - Will give a course of Z-Elkin and oral prednisone to help with swelling, prevent bronchitis/worsening infection. Continue Tylenol Motrin, ayxw-vhz-eheiapy decongestions and other conservative management for symptoms. Monitor closely and recheck with PCP if no improvement Recording using [employer] software for draft documentation of the visit was discussed with the patient/authorized loss control representative; all questions welcomed and answered. Patient/authorized loss control representative agreed to proceed - XR CHEST 2V FRONTAL/LAT Teresa Gila, DO Differential Diagnoses - Chest congestion, sinobronchitis is more likely for the following reason(s): suggested by H&P and consistent with imaging - Pneumonia, pneumothorax is less likely for the following reason(s): no evidence on imaging and H&P not suggestive Disposition The patient was discharged. OTC Medications were advised: Procedures documented in this encounter [facility] 01-18-2025 History of Presen t illness Narrative Images from the original note were not included. [facility] [address] [facility] [address] Dept: [phone] Dept Loc: [phone] Visit type: Established Patient Reason for Visit: Follow-up and Parkinson's Disease Assessment and Plan 1. Parkinson's disease with fluctuating manifestations, unspecified whether dyskinesia present (HCC) 2. Essential tremor Subjective HPI: He reports that he is getting worse. He is having more tremor and greater difficulty with walking. He reports that he had to have a cholecystectomy. He reports that he has tried increaseing the carb-levo without any improvement. He denies falls. He denies trouble swallowing. He does feel weak and wobbly when standing for a long time. He has not been able to go to PD exercise classes because of his health. Since the cy, he has had joint pain in the fingers and toes. REVIEW OF SYSTEMS: Review of Systems Constitutional: [...] pain and genital sores. Musculoskeletal: Positive for arthralgias and back pain. Negative for neck pain. Skin: Negative for color change. [...] reaction(s): myalgia Sulfa Antibiotics Current Outpatient Medications: alpha tocopherol (Vitamin E) 1000 units capsule, Take 1,000 Units by mouth daily., Disp: , Rfl: amLODIPine (Norvasc) 5 MG tablet, Take by mouth daily., Disp: , Rfl: carbidopa-levodopa (Sinemet) 25-100 MG tablet, Take 1 tablet by mouth every 8 hours as needed (tremors). With the carb-levo CR 50/200, Disp: 270 tablet, Rfl: 3 carbidopa-levodopa CR (Sinemet CR) 50-200 MG ER tablet, Take 1 tablet by mouth 3 times daily. Do not crush or chew., Disp: 270 tablet, Rfl: 3 cholecalciferol (Vitamin D-3) 50 MCG (2000 UT) capsule, Take by mouth., Disp: , Rfl: cloNIDine (Catapres) 0.1 MG tablet, Take 0.1 mg by mouth every 8 hours as needed., Disp: , Rfl: Cyanocobalamin (VITAMIN B 12 PO), Take by mouth., Disp: , Rfl: Ferrous Sulfate (SLOW FE PO), Take by mouth., Disp: , Rfl: hydrALAZINE (Apresoline) 25 MG tablet, Take 25 mg by mouth 4 times daily., Disp: , Rfl: hydroCHLOROthiazide (Microzide) 12.5 MG capsule, Take 12.5 mg by mouth daily. Takes 1 tab every other day., Disp: , Rfl: magnesium gluconate 250 MG tablet, 250 mg., Disp: , Rfl: nebivolol (Bystolic) 10 MG tablet, Take 10 mg by mouth daily., Disp: , Rfl: omeprazole (PriLOSEC) [address] capsule, Take 40 mg by mouth daily., Disp: , Rfl: pramipexole (Mirapex) 0.25 MG tablet, Take 1 tablet (0.25 mg) by mouth Nightly., Disp: 90 tablet, Rfl: 3 primidone (Mysoline) 50 MG tablet, Take 2 tabs po QAM and 3 tabs po QPM, Disp: 450 tablet, Rfl: 3 betamethasone, augmented, (Diprolene AF) 0.05 % cream, APPLY TO THE AREAS OF RASH ON THE LEGS DAILY NEEDED (Patient not taking: Reported on 01/18/2025), Disp: , Rfl: hydrALAZINE (Apresoline) 50 MG tablet, Take by mouth., Disp: , Rfl: magnesium oxide (Mag-Ox) 400 MG tablet, Take 250 mg by mouth daily., Disp: , Rfl: Past Medical History: Diagnosis Date Back pain Cancer (CMS/HCC) (HCC) HL (hearing loss) Hypertension Lumbar stenosis Parkinson's disease (HCC) Sleep apnea Testicular cancer (HCC) Testicular carcinoma, right (HCC) Tremor Social History Tobacco Use Smoking status: Never Smokeless tobacco: Never Substance Use Topics Alcohol use: Never Past Surgical History: Procedure Laterality Date GALLBLADDER SURGERY 11/24/2024 HERNIA REPAIR 01/07/2023 OTHER SURGICAL HISTORY back injections TONSILLECTOMY (HISTORICAL) TUMOR REMOVAL VASCULAR SURGERY No family history on file. Objective Vitals: BP (!) 182/94 (BP Location: Right arm, Patient Position: Sitting, BP Cuff Size: Adult) Pulse 63 Ht 5' 8.5 (1.74 m) Wt 220 lb 9.6 oz (100 kg) BMI 33.05 kg/m General Appearance: Patient is in no [...] tremor. Data Reviewed and Summarized DIAGNOSTIC TESTING IMPRESSION and PLAN: Diagnosis Plan 1. Parkinson's disease with fluctuating manifestations, unspecified whether dyskinesia present ([facility]) 2. Essential tremor This part of his exam is stable. He did not notice any difference with trying more carb-levo. Will continue the current regimen. Increase primidone to 150 BID. If this is not a good enough increase, he is to contact me in a week. In that case, I would increase to 4 tabs PO BID. Ralph Noriega MD I spent 20 minutes caring for this patient today, reviewing labs, records, seeing the patient, documenting in the record and arranging for studies. documented in this encounter [facility] 01-18-2025 Instructions Ralph Noriega MD - 01/18/2025 10:00 AM EDT Increase the primidone to 3 tabs twice a day. Give it a week. If no better or if you think I should go higher, send a message or call in a week from now. documented in this encounter [facility] 12-13-2024 History of Presen t illness Narrative Images from the original note were not included. Referring Provider: No ref. provider found Date: December 13, 2024 Chief Complaint: Established Patient Follow-Up (9 month follow up) HISTORY OF PRESENT ILLNESS: Carolyn Abbott is a 74 year old male who presents for Established Patient Follow-Up (9 month follow up). Patient known to have aortic stenosis. Echocardiogram 2015 ejection fraction was 55%. Mild aortic stenosis noted. Echocardiogram in 2023 at peak gradient of 50 mg was noted across the aortic valve. Moderate severe aortic stenosis was noted. Patient had a heart catheterization 2020 nonobstructive coronary artery disease was appreciated Patient is also known to have Parkinson's. His activity is quite limited ALLERGIES Allergen Reactions Clindamycin Swelling Sulfa (Sulfonamide [...] med change. Chronic diastolic HF (heart failure) ([facility]) Chronic kidney disease, stage 3a ([facility]) DDD (degenerative disc disease), lumbar Dyslipidemia Elevated [...] diastolic dysfunction. Mild aortic stenosis. History of echocardiogram 04/01/2024 EF 72%. Moderate MR and stenosis. Moderate aortic stenosis. History of prostate cancer 1980 Diagnosed in mid 1980s, with some adenopathy in the abdomen History of stress test 01/16/2021 EF 71% Evidence of probable inferior myocardial ischemia. Hypogonadism in male IFG (impaired fasting glucose) Joint pain Lumbar spinal stenosis Multiple acquired skin tags PATRICIO (obstructive sleep apnea) Parkinson's disease ([facility]) 2017 Polycystic kidney disease Polyneuropathy lower extremities, very mild, NCS 08/2021 Respiratory symptoms Valvular heart disease 2017 Vitamin D deficiency Vitreous degeneration PAST SURGICAL HISTORY Procedure Laterality Date REMOVAL GALLBLADDER 11/24/2024 REPAIR EPIGASTRIC HERNIA,REDUC 12/2022 ULTRASOUND GUIDANCE FOR [...] Status: MEDICATIONS: Current Outpatient Medications Medication Sig nebivolol (BYSTOLIC) 10 mg tablet Take 1 tablet by mouth once daily. hydrALAZINE (APRESOLINE) 25 mg tablet Take 25 mg by mouth every 6 hours as needed. carbidopa-levodopa CR (SINEMET CR) 25-100 mg per tablet Take 1 tablet by mouth every 8 hours as needed (Worsening parkinsons tremors). ferrous sulfate 325 mg (65 mg iron) EC tablet Take 1 tablet by mouth two times a day. omeprazole (PRILOSEC) 40 mg capsule Take 1 capsule by mouth once daily. amLODIPine (NORVASC) 5 mg tablet Take 5 mg by mouth once daily. cloNIDine HCl (CATAPRES) 0.1 mg tablet Take 0.1 mg by mouth every 8 hours as needed (For blood pressure > 160). hydroCHLOROthiazide 12.5 mg capsule Take 12.5 mg by mouth once daily. cyanocobalamin (VITAMIN B-12) 1,000 mcg tab Take 1,000 mcg by mouth once daily. primidone (MYSOLINE) 50 mg tablet Take 100 mg by mouth two times a day. 100mg AM and 150mg PM MAGNESIUM GLUCONATE ORAL Take 500 mg by mouth two times a day. pramipexole (MIRAPEX) 0.25 mg tablet Take 1 tablet by mouth daily at bedtime. ascorbic acid, vitamin C, (VITAMIN C) 500 mg tablet Take 1,000 mg by mouth two times a day. ergocalciferol, vitamin D2, 50 mcg (2,000 unit) tab Take 2,000 Units by mouth once daily. No current facility-administered medications for this [...] Negative for confusion and hallucinations. Vitals: BP 174/90 (BP Site: Left Arm, BP Position: Sitting, BP Cuff Size: Large Adult) Pulse 61 Ht 179.1 cm (5' 10.5) Wt 96.3 kg (212 lb 4.9 oz) BMI 30.03 kg/m PHYSICAL EXAMINATION: BP 174/90 (BP Site: Left Arm, BP Position: Sitting, BP Cuff Size: Large Adult) Pulse 61 Ht 179.1 cm (5' 10.5) Wt 96.3 kg (212 lb 4.9 oz) BMI 30.03 kg/m Last 3 Encounter BP Readings: Date: BP: 03/14/2024 122/80 10/21/2023 140/90 06/12/2023 138/90 Last 3 Encounter Pulse Readings: Date: Pulse: 03/14/2024 59 10/21/2023 70 06/12/2023 65 Last 3 Encounter Wt Readings: Date: Wt: 03/14/2024 100.5 kg (221 lb 9 oz) 10/21/2023 104.8 kg (231 lb) 06/12/2023 103.5 kg (228 lb 1.9 oz) Physical Exam Vitals reviewed. Constitutional: General: He is not in acute distress. Appearance: Normal appearance. He is normal weight. HENT: Head: Normocephalic and atraumatic. Right Ear: External ear normal. Left Ear: External ear normal. Nose: Nose normal. Mouth/Throat: Mouth: Mucous membranes are moist. Eyes: Extraocular Movements: Extraocular movements intact. Cardiovascular: [...] with a grade of 2/6. Comments: PMI stipulates laterally positive heave no gallop second heart sound is absent Pulmonary: Effort: Respiratory distress present. Breath sounds: Normal breath sounds. Abdominal: General: Abdomen is flat. Bowel sounds are normal. Palpations: Abdomen is soft. Tenderness: There is no abdominal tenderness. Musculoskeletal: General: Swelling present. Right lower le+ Edema present. Left lower le+ Edema present. Skin: General: Skin is warm. Capillary Refill: Capillary refill takes 2 to 3 seconds. Findings: No rash or wound. Neurological: Mental Status: He is alert and oriented to person, place, and time. Mental status is at baseline. Coordination: Coordination is intact. Psychiatric: Mood and Affect: Mood normal. Behavior: Behavior normal. Thought Content: Thought content normal. Judgment: Judgment normal. LABS: No results found for: GLUC, K, NA, CHLOR, CO2, CREAT, BUN, ANION, CA, TPROT, ALB, TBILI, ALKPHOS, AST, ALT No results found for: HB, HCT, WBC No results found for: CHOL, HDL, LDL, TG EKG: ASSESSMENT/PLAN: 1. Essential hypertension, benign - ICD9: 401.1, ICD10: I10 (primary diagnosis) Patient's blood pressure in the office today was recorded as 174/90. Target systolic BP 140 or less and diastolic BP 90 or less. Continue current medications. - ECG COMPLETE today's EKG demonstrates sinus rhythm. There is no QT prolongation. 3. Aortic valve stenosis, etiology of cardiac valve disease unspecified - ICD9: 424.1, ICD10: I35.0 Patient has severe aortic stenosis. Second heart sounds absent PMI displaced laterally there is no gallop. He developed peripheral edema at this time 1+1-2+ is noted bilaterally. He had also complained increased fatigue shortness of breath. We spent over 40 minutes discussing them pictorial format aortic stenosis discussed the signs and symptoms of aortic stenosis. Patient Patient also has Parkinson's. Discussed with him the nonsurgical option of aortic stenosis and lifespan noted when the developing congestive heart failure is 2 years. Discussed surgical options of the t transcutaneous approach. Discussed with him the aortic valve replacement people have done remarkably well for about 10 years however this would not fix his Parkinson's he has to make a clinical decisions about proceeding on with aortic valve surgery On physical examination aortic stenosis sounds like aortic valve area 1.1-0.2 at this time he is not interested in surgical approach. Will go ahead and repeat echocardiogram next year. Sinus hematology of aortic stenosis explained to him in great detail if he develops increased shortness of breath the patient is to call us and we will move his appointment up sooner Hyperlipidemia Patient is not currently taking anything for cholesterol. 7. History of echocardiogram - ICD9: V15.89, ICD10: Z92.89 Echo done on 04/01/2024 showed, as with peak grad of 50mm HG, this qualifies for moderate aortic stenosis. I discussed the gradient in pictorial format and very clear pictures they seem to understand the severity of the aortic stenosis. 8. History of cardiac cath - ICD9: V45.89, ICD10: Z98.890 Heart cath done on 01/22/2024 showed, Nonobstructive coronary arteries with coronary ectasia noted in the LAD and right coronary artery. 9. History of stress test - ICD9: V15.89, ICD10: Z92.89 Stress test done on 01/16/2021 showed, EF 71% Evidence of probable inferior myocardial ischemia. 10. Non-smoker - ICD9: V49.89, ICD10: Z78.9 Patient is a non-smoker IMaribel MA , scribing for Dr. Milton Basilio, was present in the room during the examination Follow up in: 6 month f/u Sultana Prior to entering the room, I reviewed [...] family and compared it to the previous EKGs that we have in the medical records. Changes were described to the patient. In a pictorial format; I described the FL and QRS intervals. This was to show the effects of antiarrhythmic therapy on the electrical system. I was able to look at [...] one hundred percent of my time in [id number] conversation with the patient. I answered all the questions and explained the diagnosis of moderate severe aortic stenosis on physical examination new onset peripheral edema. Greater that 51% of my time was spent with [id number] conversation with the patient. I have discussed the recommended treatment, alternative therapies and other options in detail. I've discussed the best benefit and side effects of these recommended treatments. I've attempted to answer all the questions to the patient's satisfaction and understanding. With approval, we would recommend an pursue the current therapy such as repeat echocardiogram 1 year patient is already on hydrochlorothiazide therapy for peripheral edema. After leaving the exam room, I went back into the patient's chart and coordinated care with my nurse ordering the proper testing and medicinal changes. Letter was performed with voice recognition algorithms and sent to the referring team. The chart was completed. Including the pre-exam, exam and post-exam, the total time spent in the patient's management was greater than 65 minutes I, Dr. Milton Basilio, have reviewed and agree with the information in the medical record. Milton Basilio DO documented in this encounter [facility] 12-13-2024 Note HNO ID: [id number] Author: MILTON BASILIO DO Service: ? Author Type: Physician Type: Progress Notes Filed: 12/14/2024 05:14 Note Text: Referring Provider: No ref. provider found Date: December 13, 2024 Chief Complaint: Established Patient Follow-Up (9 month follow up) HISTORY OF PRESENT ILLNESS: Carolyn Abbott is a 74 year old male who presents for Established Patient Follow-Up (9 month follow up). Patient known to have aortic stenosis. Echocardiogram 2016 ejection fraction was 55%. Mild aortic stenosis noted. Echocardiogram in 2023 at peak gradient of 50 mg was noted across the aortic valve. Moderate severe aortic stenosis was noted. Patient had a heart catheterization 2020 nonobstructive coronary artery disease was appreciated Patient is also known to have Parkinson's. His activity is quite limited ALLERGIES Allergen Reactions Clindamycin Swelling Sulfa (Sulfonamide [...] diastolic dysfunction. Mild aortic stenosis. History of echocardiogram 04/01/2024 EF 72%. Moderate MR and stenosis. Moderate aortic stenosis. History of prostate cancer 1980 [...] degeneration PAST SURGICAL HISTORY Procedure Laterality Date REMOVAL GALLBLADDER 11/24/2024 REPAIR EPIGASTRIC HERNIA,REDUC 12/2022 ULTRASOUND GUIDANCE FOR [...] Status: MEDICATIONS: Current Outpatient Medications Medication Sig nebivolol (BYSTOLIC) 10 mg tablet Take 1 tablet by mouth once daily. hydrALAZINE (APRESOLINE) 25 mg tablet Take 25 mg by mouth every 6 hours as needed. carbidopa-levodopa CR (SINEMET CR) 25-100 mg per tablet Take 1 tablet by mouth every 8 hours as nee (more content not included)... [facility] 12-07-2024 Evaluation note Diagnosis Onset Date Resolution S/P laparoscopic cholecystectomy acute December 07, 2024 1:48pm [facility] Work Phone: 1(930) 867-395203-27-2025 Consult note Author Daylin Dawn [facility] Note Date/Time November 24, 2024 1:1 0pm [facility] Medical Records Department [address] [place] [address] Anesthesia Postop Eval I 11/24/24 1308 MR#: [id number] Acct: [id number] Name: CAROLYN ABBOTT Rep #:[id number] : 1950 74 From: Daylin callaway CRNA PCP: Dr. Razia Maya, DO Status:REG SDC Y Race: C Location: [place] [address] Anesthesia: Postop Eval I Current Vital Signs Temperature: 97 F Pulse Rate: 58 Blood Pressure: 156/78 Respiratory Rate: 18 Pulse Ox: 100 Oxygen Delivery Method: Simple Mask Oxygen Flow Rate (L/min): 6 Assessment Airway patent: Yes Spontaneous unlabored respirations: Yes Mental status: Awake and Calm nausea: No Vomiting: No Anesthesia Complication: No Fluid Hydration Crystalloid volume administer (ml): 1,200 Total IV fluid infused: 1,200 Progress Note Anesthesia document: Postop Eval 1 completed: Yes 11/24/24 1310 <Electronically signed by Daylin briceño CRNA> Date _ Daylin Dawn [employer]CH[employer]ENDER Cosigner Signature: Date CC: ~ Signed [facility] Work Phone: 1(253) 113-119403-27-2025 [facility] Date/Time November 24, 2024 12: 57pm [facility] Medical Records Department [address] [place] [address] Instructions for Home/Discharge Instructions 11/24/24 1254 MR#: [id number] Acct: [id number] Name: CAROLYN ABBOTT PONCE Rep #:[id number] : 1950 74 From: Kathy Boss MD PCP: Dr. Razia Maya, DO Status:REG SDC Discharge Instructions Diet Discharge Diet: Light diet - advance as tolerated Activity Discharge Activity: May Not Drive (while taking narcotic pain medications.) May shower in (days): 1 Lifting Restrictions: no lifting >20 lbs x 2 wks, no strenuous exercise for 4 wks Dressing / Incision Call your doctor if your incision/area has: Continuous Slow Oozing, Sudden Increased Bleeding, Increased Pain/ Swelling, Increased Redness, Foul Smelling Discharge and Swelling at the incision site Call your doctor if you observe: Fever of 101 or Higher Remove Dressing in: 2 days Cleanse incision/area with: Soap & Water Additional Dressing/Incision Instructions:: Steri-Strips will fall off in 7 to 10 days, if they do not fall off okay to remove after 10 days. Follow Up Care Please Follow Up With: Kathy Boss MD When: Call the office for a follow-up appointment 2 weeks; after 5 PM and on call [phone] with any concerns. Test Results: Test results from this visit will be discussed in further detail at your follow- up appointment, if applicable. Discharge Plan Admission Attending Provider: Kathy Boss Primary Care Provider: Razia Maya Instructions Print Language: Croatian Discharge Orders/Prescriptions Prescriptions: New hydrocodone-acetaminophen 5-325 mg tablet 1 tab PO Q6H PRN (Reason: pain) 3 Days Qty: 10 0RF Continued pramipexole 0.25 mg tablet 0.25 mg PO QHS primidone 50 mg tablet 100 mg PO QAM cholecalciferol (vitamin D3) 50 mcg (2,000 unit) capsule 50 mcg PO DAILY magnesium 250 mg tablet 250 mg PO BID ascorbic acid (vitamin C) 500 mg capsule 500 mg PO BID hydralazine 50 mg tablet 50 mg PO Q8H carbidopa-levodopa 25-100 mg tablet 1 tab PO TID PRN (Reason: TREMORS) clonidine HCl 0.1 mg tablet 0.1 mg PO Q8H PRN (Reason: hypertensive emergency) primidone 50 mg tablet 150 mg PO QHS Rx Instructions: Parkinson's, Tremor ferrous sulfate 325 mg (65 mg iron) tablet 325 mg PO BID mecobalamin (vitamin B12) 5,000 mcg tablet,chewable 1,000 mcg PO QDAY [id number]-phzlvzjg-xyetksnsqq 50-200-200 mg tablet 1 tab PO TID Patient Comments: TAKE 1 TABLET BY MOUTH THREE TIMES DAILY carvedilol 25 mg tablet 25 mg PO BID hydrochlorothiazide 12.5 mg tablet 12.5 mg PO QDAY sucralfate 1 gram tablet 1 g PO 4X/DAY Qty: 56 0RF Rx Instructions: Take 1 hour before meals and at bedtime amlodipine 5 mg tablet 5 mg PO QHS omeprazole 40 mg capsule,delayed release(DR/EC) 40 mg PO QDAY Qty: 30 0RF Other Ambulatory Orders: CBC-Complete Blood Cnt No Diff (Routine) Timeframe: 20241124 Facility: [facility] - Location: Laboratory Ordered By: Dr. Kathy Boss Referrals / Follow Up: Razia Maya DO [Primary Care Provider] - Disposition Disposition (needs filled in before D/C Order can be placed): Home, Self Care 11/24/24 1257<Electronically signed by Kathy Boss MD>Kathy Boss MD CC: Dr. Razia Maya DO ~ Signed [facility] Work Phone: [phone]) 856-102503-27-2025 Consult note [facility] Medical Records Department [address] [place] [id number] Anesthesia Postop Eval I 11/24/24 1308 MR#: [id number] Acct: [id number] Name: CAROLYN ABBOTT Rep #:[id number] : 1950 74 From: Daylin callaway CRNA PCP: Dr. Razia Maya DO Status:REG SDC Y Race: C Location: [place] [address] Anesthesia: Postop Eval I Current Vital Signs Temperature: 97 F Pulse Rate: 58 Blood Pressure: 156/78 Respiratory Rate: 18 Pulse Ox: 100 Oxygen Delivery Method: Simple Mask Oxygen Flow Rate (L/min): 6 Assessment Airway patent: Yes Spontaneous unlabored respirations: Yes Mental status: Awake and Calm nausea: No Vomiting: No Anesthesia Complication: No Fluid Hydration Crystalloid volume administer (ml): 1,200 Total IV fluid infused: 1,200 Progress Note Anesthesia document: Postop Eval 1 completed: Yes 11/24/24 1310 keyanna SCUTCH[employer] TENDER> Date _ Daylin Dawn CRNA Cosigner Signature: Date CC: ~ Signed [facility]03-27-2025 Discharge summary [facility] Medical Records Department [address] [place] [address] Instructions for Home/Discharge Instructions 11/24/24 1254 MR#: [id number] Acct: [id number] Name: CAROLYN ABBOTT Rep #:[id number] : 1950 74 From: Kathy Boss MD PCP: Dr. Razia Maya, DO Status:REG [facility] Discharge Instructions Diet Discharge Diet: Light diet - advance as tolerated Activity Discharge Activity: May Not Drive (while taking narcotic pain medications.) May shower in (days): 1 Lifting Restrictions: no lifting >20 lbs x 2 wks, no strenuous exercise for 4 wks Dressing / Incision Call your doctor if your incision/area has: Continuous Slow Oozing, Sudden Increased Bleeding, Increased Pain/ Swelling, Increased Redness, Foul Smelling Discharge and Swelling at the incision site Call your doctor if you observe: Fever of 101 or Higher Remove Dressing in: 2 days Cleanse incision/area with: Soap & Water Additional Dressing/Incision Instructions:: Steri-Strips will fall off in 7 to 10 days, if they do not fall off okay to remove after 10 days. Follow Up Care Please Follow Up With: Kathy Boss MD When: Call the office for a follow-up appointment 2 weeks; after 5 PM and on the call [phone] with any concerns. Test Results: Test results from this visit will be discussed in further detail at your follow- up appointment, if applicable. Discharge Plan Admission Attending Provider: Kathy Boss Primary Care Provider: Razia Maya Instructions Print Language: Croatian Discharge Orders/Prescriptions Prescriptions: New hydrocodone-acetaminophen 5-325 mg tablet 1 tab PO Q6H PRN (Reason: pain) 3 Days Qty: 10 0RF Continued pramipexole 0.25 mg tablet 0.25 mg PO QHS primidone 50 mg tablet 100 mg PO QAM cholecalciferol (vitamin D3) 50 mcg (2,000 unit) capsule 50 mcg PO DAILY magnesium 250 mg tablet 250 mg PO BID ascorbic acid (vitamin C) 500 mg capsule 500 mg PO BID hydralazine 50 mg tablet 50 mg PO Q8H carbidopa-levodopa 25-100 mg tablet 1 tab PO TID PRN (Reason: TREMORS) clonidine HCl 0.1 mg tablet 0.1 mg PO Q8H PRN (Reason: hypertensive emergency) primidone 50 mg tablet 150 mg PO QHS Rx Instructions: Parkinson's, Tremor ferrous sulfate 325 mg (65 mg iron) tablet 325 mg PO BID mecobalamin (vitamin B12) 5,000 mcg tablet,chewable 1,000 mcg PO QDAY [id number]-wnjpvase-nhmqylobte 50-200-200 mg tablet 1 tab PO TID Patient Comments: TAKE 1 TABLET BY MOUTH THREE TIMES DAILY carvedilol 25 mg tablet 25 mg PO BID hydrochlorothiazide 12.5 mg tablet 12.5 mg PO QDAY sucralfate 1 gram tablet 1 g PO 4X/DAY Qty: 56 0RF Rx Instructions: Take 1 hour before meals and at bedtime amlodipine 5 mg tablet 5 mg PO QHS omeprazole 40 mg capsule,delayed release(DR/EC) 40 mg PO QDAY Qty: 30 0RF Other Ambulatory Orders: CBC-Complete Blood Cnt No Diff (Routine) Timeframe: 20241124 Facility: [facility] - Location: Laboratory Ordered By: Dr. Kathy Boss Referrals / Follow Up: Razia Maya DO [Primary Care Provider] - Disposition Disposition (needs filled in before D/C Order can be placed): Home, Self Care 11/24/24 1257Kathy Boss MD CC: Dr. Razia Maya DO ~ Signed [facility]03-27-2025 Consult note Author Moses Espinoza [facility] Note Date/Time November 24, 2024 9:5 3am [facility] Medical Records Department [address] [place] [address] Pre-Anesthesia Evaluation 11/24/24 0936 MR#: [id number] Acct: [id number] Name: CAROLYN ABBOTT PONCE Rep #:[id number] : 1950 74 From: Moses Espinoza MD PCP: Dr. Razia Maya DO Status:REG SDC Y Race: C Location: [place] [address] ASA Classification* ASA Classification ASA Classification: 3 Assessment & Plan Anesthesia* Anesthesia Assessment Anesthesia Assessment: Discussed sedation and/or anesthesia options, risks, benefits, and alternatives with patient/parents/legal guardian/POA. Questions invited. The patient/parents/legal guardian/POA seems to understand and agrees to proceedwith anesthesia plan. Reviewed the physical assessment, medical history, allergy history and patient home medications list prior to surgery/procedure/anesthetic and documented any changes. Performed airway and anesthesia risk assessments. Anesthesia Type Anesthesia Type: General (Consider Clarence scope intubation. Patient has mild aortic stenosis. Plan for phenylephrine to avoid any increasing heart rate or decrease in blood pressure.) History Source History Obtained from:: Patient and Chart Anesthesia Focused Assessment* Temperature: 98.1 F Pulse Rate: 59 Blood Pressure: 159/76 Respiratory Rate: 20 Pulse Ox: 100 Oxygen Delivery Method: Room Air Airway Assessment Mouth opens: 2 cm Mallampati Score: IV Teeth Condition: Dentures (Upper dentures are out.) and Missing (Patient has several missing teeth on the bottom. Rest are tight.) Neck Range of motion (ROM): Full ROM Focused Labs Anesthesia Preop lab: CBC WBC 5.3 K/mm3 (4.4-11.0) 10/24/24 15:55 10/24/24 RBC 3.46 M/mm3 (4.6-6.2) L 10/24/24 15:55 10/24/24 Hgb 10.3 g/dL (13.0-16.5) L 10/24/24 15:55 5 Hct 30.4 % (40-54) L 10/24/24 15:55 10/24/24 Plt Count 182 K/mm3 (150-450) 10/24/24 15:55 10/24/24 CHEMISTRY Potassium 4.5 mmol/L (3.5-5.1) 10/24/24 15:55 10/24/24 Sodium 139 mmol/L (136-145) 10/24/24 15:55 10/24/24 Magnesium 2.2 mg/dL (1.6-2.6) 03/09/23 13:54 03/09/23 Phosphorus 3.3 mg/dL (2.5-4.9) 09/19/24 08:10 09/19/24 BUN 39 mg/dL (7-18) H 10/24/24 15:55 10/24/24 Creatinine 1.50 mg/dL (0.70-1.30) H 10/24/24 15:55 Glucose 98 mg/dL (74-106) 10/24/24 15:55 10/24/24 TSH 1.95 uIU/mL (0.358-3.74) 10/22/23 08:55 COAG PT 12.7 SECONDS (11.7-14.9) 11/26/20 04:40 Pre-Assessment Diagnosis/Proposed Procedure Planned Operative Procedure(s): Robotic Cholecystectomy w/grams Anesthesia History Anesthesia History - sprayer hand: Anesthesia History - sprayer hand Hx Hospitalization No 11/23/24 09:19 Any Problems With Anesthesia No 11/23/24 09:19 Cholinesterase deficiency No 11/23/24 09:19 You/Your Family Experience No 11/23/24 09:19 fever (hyperthermia) with Relationship Recent Exposure to Contagious No 11/24/24 09:02 Disease Does patient have nerve No 11/23/24 09:19 stimulator Patient instructed to have device shut off --Does patient have Pacemaker No 11/24/24 09:02 or ICD? When Was Last Pacemaker Check QUESTION #4 FULL TEXT: You/Your Family Experience fever (hyperthermia) with Anesthesia Last Oral Intake Last Oral intake: Last Oral Intake NPO since 00:00 11/24/24 09:02 Meds taken in AM with sips of Yes 11/24/24 09:02 water? Meds patient instructed to take am of surgery Any additional information?: Yes NPO since: 04:00 (Patient water at 4 AM.) Meds taken in AM with sips of water?: Yes PONV PONV - sprayer hand: PONV - sprayer hand Female No 11/23/24 09:19 HX of Motion Sickness No 11/23/24 09:19 HX of N/V After Surgery No 11/23/24 09:19 Non-Smoker Yes 11/23/24 09:19 Duration of Surgery greater Yes 11/23/24 09:19 than 60 minutes Number of Risk Factors 2 11/23/24 09:19 PONV Score Moderate Risk 11/23/24 09:19 Height & Weight Height & Weight: Anesthesia: Height & Weight Height 5 ft 10 in 11/24/24 09:02 Weight: 99.2 kg 11/24/24 09:02 Body Mass Index (BMI) 31.4 11/24/24 09:02 Respiratory Assessment Respiratory Assessment - sprayer hand: Respiratory Tract Infection Hx - sprayer hand Hx Respiratory Tract Infection No 11/23/24 09:19 STOP Sleep Apnea STOP Sleep Apnea - sprayer hand: STOP Sleep Apnea - sprayer hand Hx Hypertension Yes 11/23/24 09:19 Hx Sleep Apnea Yes 11/23/24 09:19 CPAP Yes 11/23/24 09:19 BIPAP No 11/23/24 09:19 Do you snore loudly (louder than talking or can be heard Do you often feel tired/ fatigued/ sleepy during daytime? Has anyone observed you stop breathing during sleep? STOP Results Positive 11/23/24 09:19 QUESTION #5 FULL TEXT : Do you snore loudly (louder than talking or can be heard through closed doors)? 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 Specify any problems Hx of Preganancy in last 3 N/A 11/23/24 09:19 Months Nurse Filling Out Transfusion NBUCHER 11/23/24 09:19 & Questions: Date: 11/23/24 11/23/24 09:19 Time: 09:20 11/23/24 09:19 Patient unable to answer at this time (ie. confused, unrespo /Reproduction History /Reproductive History - sprayer hand: /Reproductive Hx- sprayer hand Hx Now Gestational Age (in weeks): EDC: Hx Hx Para Hx Section SAB No 11/23/24 09:19 Active Medications Active Medications: Current Medications Generic Name Dose Route Start Last Admin Trade Name Jennifer PRN Reason Stop Dose Admin Sodium Chloride 1,000 mls @ 15 mls/hr 11/24/24 08:25 11/24/24 09:13 IV 15 mls/hr .Q48H CHANELLE Administration PFSH Medical History Wears hearing aid History of renal disease Anemia Sleep apnea Gallstones Wears glasses Wears dentures Cancer Low iron Restless legs Back pain Dietary restriction Non-smoker CPAP (continuous positive airway pressure) dependence Leg cramps History of pain when walking History of edema History of echocardiogram History of stress test Cardiology follow-up encounter Hx of undescended testicle Varicose veins of both lower extremities Elevated blood pressure reading in office with white coat syndrome, without diagnosis of hypertension Uncontrolled hypertension Wears hearing aid in both ears Cellulitis of left lower extremity without foot Nonobstructive atherosclerosis of coronary artery History of non-ST elevation myocardial infarction (NSTEMI) (11/26/20) Hyperlipidemia CKD (chronic kidney disease) Obesity Essential (primary) hypertension Testicular malignancy Nonrheumatic aortic (valve) stenosis Parkinsons disease Tremor, essential Gout Home Medications ?Medication ?Instructions ?Recorded ?Last Taken ?Type carbidopa 50 mg-levodopa 200 1 tab PO TID parkinsons 0 03/26/21 11/24/24 History mg-entacapone 200 mg tablet cholecalciferol (vitamin D3) 50 50 mcg PO DAILY 11/23/24 History mcg (2,000 unit) capsule carvedilol 25 mg tablet 25 mg PO BID 12/31/22 History ascorbic acid (vitamin C) 500 mg 500 mg PO BID 5 11/23/24 History capsule carbidopa 25 mg-levodopa 100 mg 1 tab PO TID PRN TREMO RS 09/27/24 Unknown History tablet clonidine HCl 0.1 mg tablet 0.1 mg PO Q8H PRN hyperten sive 09/27/24 11/23/24 History emergency ferrous sulfate 325 mg (65 mg 325 mg PO BID 09/27/24 0 11/23/24 History iron) tablet hydralazine 50 mg tablet 50 mg PO Q8H 09/27/24 History hydrochlorothiazide 12.5 mg tablet 12.5 mg PO QDAY 11/23/24 History magnesium 250 mg tablet 250 mg PO BID 09/27/2411/23 History mecobalamin (vitamin B12) 5,000 1,000 mcg PO QDAY 09/0111/23/24 History mcg chewable tablet pramipexole 0.25 mg tablet 0.25 mg PO QHS restless leg s 09/27/24 11/23/24 History primidone 50 mg tablet 100 mg PO QAM 09/27/2411/24 History primidone 50 mg tablet 150 mg PO QHS 09/27/2411/23 History omeprazole 40 mg capsule,delayed 40 mg PO QDAY #30 cap s 11/03/24 11/24/24 Rx release sucralfate 1 gram tablet 1 g PO 4X/DAY #56 tabs 11/1111/24/24 Rx amlodipine 5 mg tablet 5 mg PO QHS 11/23/24 5 History Allergy/AdvReac Type Severity Reaction Status Date / Time clindamycin Allergy Swelling Verified 11/24/24 09:13 Sulfa (Sulfonamide Allergy Unknown, Verified 11/24/24 09:13 Antibiotics) A CHILD allopurinol AdvReac Intermediate Possible Verified 11/24/24 09:13 cause of rash on legs: went away after stopping simvastatin AdvReac myalgia Verified 11/24/24 09:13 Family History Father CAD (coronary artery disease) Sudden cardiac , Onset Age: 59 Myocardial infarction, Onset Age: 59 Hypertension Mother Heart disease Hypertension Brother Sudden cardiac , Onset Age: 68 Surgical History History of esophagogastroduodenoscopy (EGD) History of cardiac catheterization S/P hernia repair History of colonoscopy History of lymph node excision History of left heart catheterization (01/21/21) History of surgical removal of testicle History of tonsillectomy Social History household members: spouse current occupational status: retired Smoking Status: Never smoker alcohol intake: never substance use type: does not use caffeine: No what type of physical activity do you participate in: bicycling frequency: 1-2 times per week duration: 30-45 minutes/day seatbelt use: always do you feel safe at home: Yes Review of Systems (Anesthesia) ROS Narrative System reviewed and no additional complaints, except as documented. 11/24/24 0953 <Electronically signed by Moses lam MD> Date _ Moses Espinoza MD Cosigner Signature: Date CC: ~ Signed [facility] Work Phone: 1(404) 992-798203-27-2025 History and physical note Author [facility] Note Date/Time November 24, 2024 9:4 6am [facility] Medical Records Department [address] [place] [address] History & Physical Exam 11/24/24 0944 MR#: [id number] Acct: [id number] Name: CAROLYN ABBOTT Rep #:[id number] : 1950 74 From: Kathy Boss MD PCP: Dr. Razia Maya, DO Status:REG [facility] Location: [facility]07-1 History and Physical Date of Admission: 11/24/24 11/11/24 1052 MR#: [id number] Acct: [id number] Name: CAROLYN ABBOTT Rep #: [id number] : 1950 73 From: Kathy Boss MD PCP: Dr. Razia Maya, DO Status: REG [facility] Location: [facility]19-1 History and Physical Date of Admission: 11/11/24 Date of Service: 11/07/24MR#: [id number] Acct: [id number] Name: CAROLYN ABBOTT Rep #: [id number] : 1950 Provider: Dr. Kathy Boss MD Age/Sex: 73/M Location: [facility] Status: Signed Intake Vital Signs 09/27/2512:07 11/07/2512:50 Height 5 ft 10 in 5 ft 10 in Weight: 218 lb 215 lb 8 oz BMI 31.2 30.9 BP 111/75 Blood Pressure Location Rt brachial Position Sitting Respiration 18 Pulse 74 Pulse Source Monitor Temp 97.2 F L Temp Source Temporal Pulse Oximetry (%) 99 Oxygen Delivery Method room air Intake Visit Reasons: GALLBLADDER Chief Complaint: gallbladder Accompanied by: Is patient in pain?: No Allergies clindamycin Allergy (Verified 11/07/24 13:50)SwellingSulfa (Sulfonamide Antibiotics) Allergy (Verified 11/07/24 13:50) Unknown, A CHILDallopurinol Adverse Reaction (Intermediate, Verified 11/07/24 13:50) Possible cause of rash on legs: went away after stoppingsimvastatin Adverse Reaction (Verified 11/07/24 13:50) myalgia Medications ?Medication ?Instructions ?Recorded ?Confirmed ?Type carbidopa 50 mg-levodopa 200 1 tab PO TID parkinsons 03/26/21 5 History mg-entacapone 200 mg tablet cholecalciferol (vitamin D3) 50 50 mcg PO DAILY 07/05/21 11/07/24 Histor y mcg (2,000 unit) capsule carvedilol 25 mg tablet 25 mg PO BID 12/31/22 11/07/24 History amlodipine 10 mg tablet 10 mg PO QHS 01/06/23 11/07/24 History ascorbic acid (vitamin C) 500 mg 1,500 mg PO QDAY 09/27/24 11/07/24 Histo ry capsule carbidopa 25 mg-levodopa 100 mg 1 tab PO TID PRN 09/27/24 11/07/24 Histo ry tablet clonidine HCl 0.1 mg tablet 0.1 mg PO Q4H PRN 09/27/24 11/07/24 Hist ory ferrous sulfate 325 mg (65 mg 325 mg PO BID 09/27/24 11/07/24 History iron) tablet hydralazine 50 mg tablet 50 mg PO BID 09/27/24 11/07/24 History hydrochlorothiazide 12.5 mg tablet 12.5 mg PO QDAY 09/27/24 11/07/24 Histor y magnesium 250 mg tablet 250 mg PO DAILY 09/27/24 11/07/24 Histor y mecobalamin (vitamin B12) 5,000 5,000 mcg PO QDAY 09/27/24 11/07/24 Hist ory mcg chewable tablet pramipexole 0.25 mg tablet 0.25 mg PO QHS restless legs 09/27/24 History primidone 50 mg tablet 100 mg PO QAM 09/27/24 11/07/24 History primidone 50 mg tablet 150 mg PO QHS 09/27/24 11/07/24 History omeprazole 40 mg capsule,delayed 40 mg PO QDAY #30 caps 11/03/24 11/07/24 Rx release Have you fallen in the past year?: No PFS Medical History (Updated 11/09/24 @ 11:[address] Kathy Boss MD) Gallstones Wears glasses Wears dentures Cancer Low iron Restless legs Back pain Dietary restriction Non-smoker CPAP (continuous positive airway pressure) dependence Leg cramps History of pain when walking History of edema History of echocardiogram History of stress test Cardiology follow-up encounter Hx of undescended testicle Varicose veins of both lower extremities Elevated blood pressure reading in office with white coat syndrome, without diagnosis of hypertension Uncontrolled hypertension Wears hearing aid in both ears Cellulitis of left lower extremity without foot Nonobstructive atherosclerosis of coronary artery History of non-ST elevation myocardial infarction (NSTEMI) (11/26/20) Hyperlipidemia CKD (chronic kidney disease) Obesity Essential (primary) hypertension Testicular malignancy Nonrheumatic aortic (valve) stenosis Parkinsons disease Tremor, essential Gout Surgical History S/P hernia repair History of colonoscopy History of lymph node excision History of left heart catheterization (01/21/21) History of surgical removal of testicle History of tonsillectomy Family History Father CAD (coronary artery disease) Sudden cardiac , Onset Age: 59 Myocardial infarction, Onset Age: 59 HypertensionMother Heart disease HypertensionBrother Sudden cardiac , Onset Age: 68 Social History household members: spouse current occupational status: retired Smoking Status: Never smoker alcohol intake: never substance use type: does not use caffeine: No what type of physical activity do you participate in: bicycling frequency: 1-2 times per week duration: 30-45 minutes/day seatbelt use: always do you feel safe at home: Yes HPI HPI HPI: 73-year-old male presents due to gallstones. Patient states that about 2 weeks ago on Thursday he had right upper quadrant pain which occurred in the morning when he woke up. Patient last ate at 530 to 6 PM. Patient did just start omeprazole which she states is helping. Patient states he does have a decreasedappetite for about the last 6 weeks per patient and his . Patient has been able to eat peanut butter as well as chicken salad sandwich without any increased right upper quadrant pain. Patient states his pain is currently a 4/10 previous to this was occasionally got up to 10. Patient states his last colonoscopy was 6 to 7 years ago was told to come back in [address] Almazan. Will plan to get that report. Patient denies having polyps at that time. Patient does have bowel movements about every 2 days does take a senna if it goes beyond that. Patient denies any family history of colon cancer. ROS General General: Yes weight change (loss), appetite and fatigue; No colon cancer, breast cancer or weakness Additional Details: loss of appetite HEENT HEENT: No difficulty swallowing, eye injury, eye surgery, swollen glands or hoarseness Endo Endocrine: No thyroid disease, diabetes mellitus, thyroid cancer, Hair loss, heat intolerance or cold intolerance Skin Skin: Yes rash; No changing moles Musc Musculoskeletal: Yes back problems and gout; No arthritis, rheumatoid arthritis or joint pain Cardio Cardiovascular: Yes murmur and high blood pressure; No pacemaker, heart disease, atrial fibrillation, heart attack, heart stent, palpitations, shortness of breath with exertion or chest pain Psych Psychiatric: No depression, anxiety or hearing voices Resp Respiratory: No shortness of breath, Yes sleep apnea, No cough, No COPD, No asthma, No emphysema and No wheezing Gastro Gastrointestinal: Yes abdominal pain, Yes nausea or vomiting, No diarrhea, Yes constipation, No blood in stool, No acid reflux, No hemorrhoids, No ulcers, Yes gallbladder problem and No black,tarry stools Matthew Hematologic: No blood thinners, No blood disorders, No bleeding, Yes anemia and No blood clots Neuro Neurologic: No numbness, No tingling and No weakness Exam Const General: cooperative, healthy appearing, comfortable and no acute distress [facility] Head: normocephalic and atraumatic Neck Neck: supple Resp Effort & Inspection: normal respiratory effort Cardio Rate: regular rate GI Inspection: non-distended Palpation: soft and nontender Skin General: no rashes or lesions noted Neuro General: CN's II-XI intact bilaterally Extrem General: normal to inspection Psych Mental Status: mental status grossly normal Attitude: cooperative Assessment and Plan Assessment and Plan (1) GERD (gastroesophageal reflux disease): Status: Acute (2) Gallstones: Status: Acute Orders: Orders Colonoscopy 11/11/24 EGD 11/11/24 Plan Discussed with patient and his that his history sounds more like reflux or gastric etiology versus gallstones. As patient is able to eat fatty greasy foods without any issues since pain usually occurs in the morning before ever eating. Will have patient continue the omeprazole 40 mg p.o. daily. Also plan to do an EGD. Will also get the report from patient's last colonoscopy to see if he is due for colonoscopy if so we will plan to do it at the same time. I have discussed the above with the patient. I have offered the patient esophagogastroduodenoscopy and colonoscopy for evaluation. I have explained the risks/benefits of the procedure and described the procedure. I have discussed the risks with the patient, including but not limited to: infection, bleeding, perforation of the GI tract requiring emergency surgery, inability to complete the procedure, injury to any internal organs, complications of anesthesia, etc. - the patient understands and agrees to proceed. I have answered all the patient's questions to the patient's satisfaction and the patient has no further questions. The patient has been given instructions for the colon cleansing preparation. 1 day of clears, MiraLAX Dulcolax prep. Kathy Boss M.D. Pager: [phone] [facility] [address] [place] [address], [facility], [address] [place] [address] Office: [phone] Coding Level of Care Code Off vis,est,level 3 Diagnoses GERD (gastroesophageal reflux disease) K21.9 Gallstones K80.20 Clinical Quality Measures Falls Risk Screening/Assistive Devices Have you fallen in the past year?: No 11/09/24 1137 <Electronically signed by Kathy Boss MD> Date Kathy Boss MD 11/11/24 1053 <Electronically signed by Kathy Boss MD> Cosigner Signature (if applicable): CC: Dr. Razia Maya DO; Dr. Kathy Boss MD~ Signed ADDENDUM by Dr. Kathy Boss MD on 11/11/24 at 1201 Addendum I have examined the patient and the H&P has been reviewed. There are no clinicalchanges since date of exam. 11/11/24 1201<Electronically signed by Kathy Boss MD> 11/24/24 0944 <Electronically signed by Kathy Boss MD> Cosigner Signature (if applicable): CC: Dr. Razia Maya DO; Dr. Kathy Boss MD~ Signed ADDENDUM by Dr. Kathy Boss MD on 11/24/24 at 0946 Addendum I have examined the patient the following changes are noted: Follow-up with patient after EGD patient was still having right upper quadrant pain which is worse at night. Initially the omeprazole helped with the discomfort but currently it was not. Discussed with patient plan to proceed with a laparoscopic cholecystectomy. Patient was agreement in agreement. Reviewed the anatomy with the patient and discussed the procedure: Robotic cholecystectomy with possible cholangiograms, possible open. Review risks including but not limited to bleeding, infection, hernia, bile leak, retained gallstones requiring another procedure ERCP- Endoscopic Retrograde Cholangiopancreatography, injury to another organ (bile ducts, common bile duct,small bowel, etc.) may require transfer to tertiary care facility and conversionto an open procedure. Patient and family no further question this time. Kathy Boss M.D. Pager: [phone] [facility] [address] [place] [address] [address] [place] [address] Office: [phone] 11/24/24 0946<Electronically signed by Kathy Boss MD> Cosigner Signature (if applicable): cc: Dr. Razia Maya, DO; Dr. Kathy Boss MD ~* Signed [facility] Work Phone: [phone] Consult note [facility] Medical Records Department [address] [place] [address] Pre-Anesthesia Evaluation 11/24/24 0936 MR#: [id number] Acct: [id number] Name: CAROLYN ABBOTT Rep #:[id number] : 1950 74 From: Moses Espinoza MD PCP: Dr. Razia Maya DO Status:REG SDC Y Race: C Location: [place] [address] ASA Classification* ASA Classification ASA Classification: 3 Assessment & Plan Anesthesia* Anesthesia Assessment Anesthesia Assessment: Discussed sedation and/or anesthesia options, risks, benefits, and alternatives with patient/parents/legal guardian/POA. Questions invited. The patient/parents/legal guardian/POA seems to understand and agrees to proceedwith anesthesia plan. Reviewed the physical assessment, medical history, allergy history and patient home medications list prior to surgery/procedure/anesthetic and documented any changes. Performed airway and anesthesia risk assessments. Anesthesia Type Anesthesia Type: General (Consider Clarence scope intubation. Patient has mild aortic stenosis. Plan for phenylephrine to avoid any increasing heart rate or decrease in blood pressure.) History Source History Obtained from:: Patient and Chart Anesthesia Focused Assessment* Temperature: 98.1 F Pulse Rate: 59 Blood Pressure: 159/76 Respiratory Rate: 20 Pulse Ox: 100 Oxygen Delivery Method: Room Air Airway Assessment Mouth opens: 2 cm Mallampati Score: IV Teeth Condition: Dentures (Upper dentures are out.) and Missing (Patient has several missing teeth on the bottom. Rest are tight.) Neck Range of motion (ROM): Full ROM Focused Labs Anesthesia Preop lab: CBC WBC 5.3 K/mm3 (4.4-11.0) 10/24/24 15:55 10/24/24 RBC 3.46 M/mm3 (4.6-6.2) L 10/24/24 15:55 10/24/24 Hgb 10.3 g/dL (13.0-16.5) L 10/24/24 15:55 5 Hct 30.4 % (40-54) L 10/24/24 15:55 10/24/24 Plt Count 182 K/mm3 (150-450) 10/24/24 15:55 10/24/24 CHEMISTRY Potassium 4.5 mmol/L (3.5-5.1) 10/24/24 15:55 10/24/24 Sodium 139 mmol/L (136-145) 10/24/24 15:55 10/24/24 Magnesium 2.2 mg/dL (1.6-2.6) 03/09/23 13:54 03/09/23 Phosphorus 3.3 mg/dL (2.5-4.9) 09/19/24 08:10 09/19/24 BUN 39 mg/dL (7-18) H 10/24/24 15:55 10/24/24 Creatinine 1.50 mg/dL (0.70-1.30) H 10/24/24 15:55 Glucose 98 mg/dL (74-106) 10/24/24 15:55 10/24/24 TSH 1.95 uIU/mL (0.358-3.74) 10/22/23 08:55 COAG PT 12.7 SECONDS (11.7-14.9) 11/26/20 04:40 Pre-Assessment Diagnosis/Proposed Procedure Planned Operative Procedure(s): Robotic Cholecystectomy w/grams Anesthesia History Anesthesia History - sprayer hand: Anesthesia History - sprayer hand Hx Hospitalization No 11/23/24 09:19 Any Problems With Anesthesia No 11/23/24 09:19 Cholinesterase deficiency No 11/23/24 09:19 You/Your Family Experience No 11/23/24 09:19 fever (hyperthermia) with Relationship Recent Exposure to Contagious No 11/24/24 09:02 Disease Does patient have nerve No 11/23/24 09:19 stimulator Patient instructed to have device shut off --Does patient have Pacemaker No 11/24/24 09:02 or ICD? When Was Last Pacemaker Check QUESTION #4 FULL TEXT: You/Your Family Experience fever (hyperthermia) with Anesthesia Last Oral Intake Last Oral intake: Last Oral Intake NPO since 00:00 11/24/24 09:02 Meds taken in AM with sips of Yes 11/24/24 09:02 water? Meds patient instructed to take am of surgery Any additional information?: Yes NPO since: 04:00 (Patient water at 4 AM.) Meds taken in AM with sips of water?: Yes PONV PONV - sprayer hand: PONV - sprayer hand Female No 11/23/24 09:19 HX of Motion Sickness No 11/23/24 09:19 HX of N/V After Surgery No 11/23/24 09:19 Non-Smoker Yes 11/23/24 09:19 Duration of Surgery greater Yes 11/23/24 09:19 than 60 minutes Number of Risk Factors 2 11/23/24 09:19 PONV Score Moderate Risk 11/23/24 09:19 Height & Weight Height & Weight: Anesthesia: Height & Weight Height 5 ft 10 in 11/24/24 09:02 Weight: 99.2 kg 11/24/24 09:02 Body Mass Index (BMI) 31.4 11/24/24 09:02 Respiratory Assessment Respiratory Assessment - sprayer hand: Respiratory Tract Infection Hx - sprayer hand Hx Respiratory Tract Infection No 11/23/24 09:19 STOP Sleep Apnea STOP Sleep Apnea - sprayer hand: STOP Sleep Apnea - sprayer hand Hx Hypertension Yes 11/23/24 09:19 Hx Sleep Apnea Yes 11/23/24 09:19 CPAP Yes 11/23/24 09:19 BIPAP No 11/23/24 09:19 Do you snore loudly (louder than talking or can be heard Do you often feel tired/ fatigued/ sleepy during daytime? Has anyone observed you stop breathing during sleep? STOP Results Positive 11/23/24 09:19 QUESTION #5 FULL TEXT : Do you snore loudly (louder than talking or can be heard through closeddoors)? 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 Specify any problems Hx of Preganancy in last 3 N/A 11/23/24 09:19 Months Nurse Filling Out Transfusion NBUCHER 11/23/24 09:19 & Questions: Date: 11/23/24 11/23/24 09:19 Time: 09:20 11/23/24 09:19 Patient unable to answer at this time (ie. confused, unrespo /Reproduction History /Reproductive History - sprayer hand: /Reproductive Hx- sprayer hand Hx Now Gestational Age (in weeks): EDC: Hx Hx Para Hx Section SAB No 11/23/24 09:19 Active Medications Active Medications: Current Medications Generic Name Dose Route Start Last Admin Trade Name Freq PRN Reason Stop Dose Admin Sodium Chloride 1,000 mls @ 15 mls/hr 11/24/24 08:25 11/24/24 09:13 IV 15 mls/hr .Q48H CHANELLE Administration PFSH Medical History Wears hearing aid History of renal disease Anemia Sleep apnea Gallstones Wears glasses Wears dentures Cancer Low iron Restless legs Back pain Dietary restriction Non-smoker CPAP (continuous positive airway pressure) dependence Leg cramps History of pain when walking History of edema History of echocardiogram History of stress test Cardiology follow-up encounter Hx of undescended testicle Varicose veins of both lower extremities Elevated blood pressure reading in office with white coat syndrome, without diagnosis of hypertension Uncontrolled hypertension Wears hearing aid in both ears Cellulitis of left lower extremity without foot Nonobstructive atherosclerosis of coronary artery History of non-ST elevation myocardial infarction (NSTEMI) (11/26/20) Hyperlipidemia CKD (chronic kidney disease) Obesity Essential (primary) hypertension Testicular malignancy Nonrheumatic aortic (valve) stenosis Parkinsons disease Tremor, essential Gout Home Medications ?Medication ?Instructions ?Recorded ?Last Taken ?Type carbidopa 50 mg-levodopa 200 1 tab PO TID parkinsons 0 03/26/21 11/24/24 History mg-entacapone 200 mg tablet cholecalciferol (vitamin D3) 50 50 mcg PO DAILY 11/23/24 History mcg (2,000 unit) capsule carvedilol 25 mg tablet 25 mg PO BID 12/31/22 History ascorbic acid (vitamin C) 500 mg 500 mg PO BID 5 11/23/24 History capsule carbidopa 25 mg-levodopa 100 mg 1 tab PO TID PRN TREMO RS 09/27/24 Unknown History tablet clonidine HCl 0.1 mg tablet 0.1 mg PO Q8H PRN hyperten sive 09/27/24 11/23/24 History emergency ferrous sulfate 325 mg (65 mg 325 mg PO BID 09/27/24 0 11/23/24 History iron) tablet hydralazine 50 mg tablet 50 mg PO Q8H 09/27/24 History hydrochlorothiazide 12.5 mg tablet 12.5 mg PO QDAY 11/23/24 History magnesium 250 mg tablet 250 mg PO BID 09/27/2411/23 History mecobalamin (vitamin B12) 5,000 1,000 mcg PO QDAY 09/0111/23/24 History mcg chewable tablet pramipexole 0.25 mg tablet 0.25 mg PO QHS restless leg s 09/27/24 11/23/24 History primidone 50 mg tablet 100 mg PO QAM 09/27/2411/24 History primidone 50 mg tablet 150 mg PO QHS 09/27/2411/23 History omeprazole 40 mg capsule,delayed 40 mg PO QDAY #30 cap s 11/03/24 11/24/24 Rx release sucralfate 1 gram tablet 1 g PO 4X/DAY #56 tabs 11/1111/24/24 Rx amlodipine 5 mg tablet 5 mg PO QHS 11/23/24 5 History Allergy/AdvReac Type Severity Reaction Status Date / Time clindamycin Allergy Swelling Verified 11/24/24 09:13 Sulfa (Sulfonamide Allergy Unknown, Verified 11/24/24 09:13 Antibiotics) A CHILD allopurinol AdvReac Intermediate Possible Verified 11/24/24 09:13 cause of rash on legs: went away after stopping simvastatin AdvReac myalgia Verified 11/24/24 09:13 Family History Father CAD (coronary artery disease) Sudden cardiac , Onset Age: 59 Myocardial infarction, Onset Age: 59 Hypertension Mother Heart disease Hypertension Brother Sudden cardiac , Onset Age: 68 Surgical History History of esophagogastroduodenoscopy (EGD) History of cardiac catheterization S/P hernia repair History of colonoscopy History of lymph node excision History of left heart catheterization (01/21/21) History of surgical removal of testicle History of tonsillectomy Social History household members: spouse current occupational status: retired Smoking Status: Never smoker alcohol intake: never substance use type: does not use caffeine: No what type of physical activity do you participate in: bicycling frequency: 1-2 times per week duration: 30-45 minutes/day seatbelt use: always do you feel safe at home: Yes Review of Systems (Anesthesia) ROS Narrative System reviewed and no additional complaints, except as documented. 11/24/24 0953 carole BRAGA> Date _ Moses Espinoza MD Cosigner Signature: Date CC: ~ Signed [facility]03-27-2025 History and physical note [facility] Medical Records Department [address] [place] [address] History & Physical Exam 11/24/2444 MR#: [id number] Acct: [id number] Name: CAROLYN ABBOTT Rep #:[id number] : 1950 74 From: Kathy Boss MD PCP: Dr. Razia Maya, DO Status:REG [facility] Location: [facility]07-1 History and Physical Date of Admission: 11/24/24 11/11/24 1052 MR#: [id number] Acct: [id number] Name: CAROLYN ABBOTT Rep #: [id number] : 1950 73 From: Kathy Boss MD PCP: Dr. Razia Maya, DO Status: REG [facility] Location: [facility]19-1 History and Physical Date of Admission: 11/11/24 Date of Service: 11/07/24MR#: [id number] Acct: [id number] Name: CAROLYN ABBOTT Rep #: [id number] : 1950 Provider: Dr. Kathy Boss MD Age/Sex: 73/M Location: [facility] Status: Signed Intake Vital Signs 09/27/2512:07 11/07/2512:50 Height 5 ft 10 in 5 ft 10 in Weight: 218 lb 215 lb 8 oz BMI 31.2 30.9 BP 111/75 Blood Pressure Location Rt brachial Position Sitting Respiration 18 Pulse 74 Pulse Source Monitor Temp 97.2 F L Temp Source Temporal Pulse Oximetry (%) 99 Oxygen Delivery Method room air Intake Visit Reasons: GALLBLADDER Chief Complaint: gallbladder Accompanied by: Is patient in pain?: No Allergies clindamycin Allergy (Verified 11/07/24 13:50)SwellingSulfa (Sulfonamide Antibiotics) Allergy (Verified 11/07/24 13:50) Unknown, A CHILDallopurinol Adverse Reaction (Intermediate, Verified 11/07/24 13:50) Possible cause of rash on legs: went away after stoppingsimvastatin Adverse Reaction (Verified 11/07/24 13:50) myalgia Medications ?Medication ?Instructions ?Recorded ?Confirmed ?Type carbidopa 50 mg-levodopa 200 1 tab PO TID parkinsons 03/26/21 5 History mg-entacapone 200 mg tablet cholecalciferol (vitamin D3) 50 50 mcg PO DAILY 07/05/21 11/07/24 Histor y mcg (2,000 unit) capsule carvedilol 25 mg tablet 25 mg PO BID 12/31/22 11/07/24 History amlodipine 10 mg tablet 10 mg PO QHS 01/06/23 11/07/24 History ascorbic acid (vitamin C) 500 mg 1,500 mg PO QDAY 09/27/24 11/07/24 Histo ry capsule carbidopa 25 mg-levodopa 100 mg 1 tab PO TID PRN 09/27/24 11/07/24 Histo ry tablet clonidine HCl 0.1 mg tablet 0.1 mg PO Q4H PRN 09/27/24 11/07/24 Hist ory ferrous sulfate 325 mg (65 mg 325 mg PO BID 09/27/24 11/07/24 History iron) tablet hydralazine 50 mg tablet 50 mg PO BID 09/27/24 11/07/24 History hydrochlorothiazide 12.5 mg tablet 12.5 mg PO QDAY 09/27/24 11/07/24 Histor y magnesium 250 mg tablet 250 mg PO DAILY 09/27/24 11/07/24 Histor y mecobalamin (vitamin B12) 5,000 5,000 mcg PO QDAY 09/27/24 11/07/24 Hist ory mcg chewable tablet pramipexole 0.25 mg tablet 0.25 mg PO QHS restless legs 09/27/24 History primidone 50 mg tablet 100 mg PO QAM 09/27/24 11/07/24 History primidone 50 mg tablet 150 mg PO QHS 09/27/24 11/07/24 History omeprazole 40 mg capsule,delayed 40 mg PO QDAY #30 caps 11/03/24 11/07/24 Rx release Have you fallen in the past year?: No PFSH Medical History (Updated 11/09/24 @ 11:[address] Kathy Boss MD) Gallstones Wears glasses Wears dentures Cancer Low iron Restless legs Back pain Dietary restriction Non-smoker CPAP (continuous positive airway pressure) dependence Leg cramps History of pain when walking History of edema History of echocardiogram History of stress test Cardiology follow-up encounter Hx of undescended testicle Varicose veins of both lower extremities Elevated blood pressure reading in office with white coat syndrome, without diagnosis of hypertension Uncontrolled hypertension Wears hearing aid in both ears Cellulitis of left lower extremity without foot Nonobstructive atherosclerosis of coronary artery History of non-ST elevation myocardial infarction (NSTEMI) (11/26/20) Hyperlipidemia CKD (chronic kidney disease) Obesity Essential (primary) hypertension Testicular malignancy Nonrheumatic aortic (valve) stenosis Parkinsons disease Tremor, essential Gout Surgical History S/P hernia repair History of colonoscopy History of lymph node excision History of left heart catheterization (01/21/21) History of surgical removal of testicle History of tonsillectomy Family History Father CAD (coronary artery disease) Sudden cardiac , Onset Age: 59 Myocardial infarction, Onset Age: 59 HypertensionMother Heart disease HypertensionBrother Sudden cardiac , Onset Age: 68 Social History household members: spouse current occupational status: retired Smoking Status: Never smoker alcohol intake: never substance use type: does not use caffeine: No what type of physical activity do you participate in: bicycling frequency: 1-2 times per week duration: 30-45 minutes/day seatbelt use: always do you feel safe at home: Yes HPI HPI HPI: 73-year-old male presents due to gallstones. Patient states that about 2 weeks ago on Thursday he hadright upper quadrant pain which occurred in the morning when he woke up. Patient last ate at 530 to6 PM. Patient did just start omeprazole which she states is helping. Patient states he does have a decreasedappetite for about the last 6 weeks per patient and his . Patient has been able to eat p eanut butter as well as chicken salad sandwich without any increased right upper quadrant pain. Patient states his pain is currently a 4/10 previous to this was occasionally got up to 10. Patient states his last colonoscopy was 6 to 7 years ago was told to come back in [address] Almazan. Will plan to get that report. Patient denies having polyps at that time. Patient does have bowel movementsabout every 2 days does take a senna if it goes beyond that. Patient denies any family history of colon cancer. ROS General General: Yes weight change (loss), appetite and fatigue; No colon cancer, breast cancer or weakness Additional Details: loss of appetite HEENT HEENT: No difficulty swallowing, eye injury, eye surgery, swollen glands or hoarseness Endo Endocrine: No thyroid disease, diabetes mellitus, thyroid cancer, Hair loss, heat intolerance or cold intolerance Skin Skin: Yes rash; No changing moles Musc Musculoskeletal: Yes back problems and gout; No arthritis, rheumatoid arthritis or joint pain Cardio Cardiovascular: Yes murmur and high blood pressure; No pacemaker, heart disease, atrial fibrillation, heart attack, heart stent, palpitations, shortness of breath with exertion or chest pain Psych Psychiatric: No depression, anxiety or hearing voices Resp Respiratory: No shortness of breath, Yes sleep apnea, No cough, No COPD, No asthma, No emphysema and No wheezing Gastro Gastrointestinal: Yes abdominal pain, Yes nausea or vomiting, No diarrhea, Yes constipation, No blood in stool, No acid reflux, No hemorrhoids, No ulcers, Yes gallbladder problem and No black,tarry stools Matthew Hematologic: No blood thinners, No blood disorders, No bleeding, Yes anemia and No blood clots Neuro Neurologic: No numbness, No tingling and No weakness Exam Const General: cooperative, healthy appearing, comfortable and no acute distress HENKS Head: normocephalic and atraumatic Neck Neck: supple Resp Effort & Inspection: normal respiratory effort Cardio Rate: regular rate GI Inspection: non-distended Palpation: soft and nontender Skin General: no rashes or lesions noted Neuro General: CN's II-XI intact bilaterally Extrem General: normal to inspection Psych Mental Status: mental status grossly normal Attitude: cooperative Assessment and Plan Assessment and Plan (1) GERD (gastroesophageal reflux disease): Status: Acute (2) Gallstones: Status: Acute Orders: Orders Colonoscopy 11/11/24 EGD 11/11/24 Plan Discussed with patient and his that his history sounds more like reflux or gastric etiology versus gallstones. As patient is able to eat fatty greasy foods without any issues since pain usually occurs in the morning before ever eating. Will have patient continue the omeprazole 40 mg p.o. daily. Also plan to do an EGD. Will also get the report from patient's last colonoscopy to see if he is du e for colonoscopy if so we will plan to do it at the same time. I have discussed the above with the patient. I have offered the patient esophagogastroduodenoscopy and colonoscopy for evaluation. I have explained the risks/benefits of the procedure and described the procedure. I have discussed the risks with the patient, including but not limited to: infection, bleeding, perforation of the GItract requiring emergency surgery, inability to complete the procedure, injury to any internal organs, complications of anesthesia, etc. - the patient understands and agrees to proceed. I have answered all the patient's questions to the patient's satisfaction and the patient has no further questions. The patient has been given instructions for the colon cleansing preparation. 1 day of clears, MiraLAX Dulcolax prep. Kathy Boss M.D. Pager: [phone] [facility] [address] [place] [address], [facility], [address] [place] [address] Office: [phone] Coding Level of Care Code Off vis,est,level 3 Diagnoses GERD (gastroesophageal reflux disease) K21.9 Gallstones K80.20 Clinical Quality Measures Falls Risk Screening/Assistive Devices Have you fallen in the past year?: No 11/09/24 1137 Date Kathy Boss MD 11/11/24 1053 Cosigner Signature (if applicable): CC: Dr. Razia Maya DO; Dr. Kathy Boss MD~ Signed ADDENDUM by Dr. Kathy Boss MD on 11/11/24 at 1201 Addendum I have examined the patient and the H&P has been reviewed. There are no clinicalchanges since date of exam. 11/11/24 1201 11/24/24 0944 Cosigner Signature (if applicable): CC: Dr. Razia Maya DO; Dr. Kathy Boss MD~ Signed ADDENDUM by Dr. Kathy Boss MD on 11/24/24 at 0946 Addendum I have examined the patient the following changes are noted: Follow-up with patient after EGD patient was still having right upper quadrant pain which is worse at night. Initially the omeprazole helped with the discomfort but currently it was not. Discussed with patient plan to proceed with a laparoscopic cholecystectomy. Patient was agreement in agreement. Reviewed the anatomy with the patient and discussed the procedure: Robotic cholecystectomy with possible cholangiograms, possible open. Review risks including but not limited to bleeding, infection, hernia, bile leak, retained gallstones requiring another procedure ERCP- Endoscopic Retrograde Cholan giopancreatography, injury to another organ (bile ducts, common bile duct,small bowel, etc.) may require transfer to tertiary care facility and conversionto an open procedure. Patient and family no further question this time. Kathy Boss M.D. Pager: [phone] [facility] [address] [place] [address], [facility], [address] [place] [address] Office: [phone] 11/24/24 0946 Cosigner Signature (if applicable): cc: Dr. Razia Maya DO; Dr. Kathy Boss MD ~* Signed [facility]03-27-2025 [facility] Medical Records Department [address] [place] [id number] History Physical Exam 11/24/24 0944 MR#: [id number] Acct: [id number] Name: CAROLYN ABBOTT Rep #: [id number] : 1950 74 From: Kathy Boss MD PCP: Dr. Razia Maya, DO Status:REG [facility] [place] [facility] Location: [facility]07-1 History and Physical Date of Admission: 11/24/24 11/11/24 1052 MR#: [id number] Acct: [id number] Name: CAROLYN ABBOTT Rep #: [id number] : 1950 73 From: Kathy Boss MD PCP: Dr. Razia Maya, DO Status: REG [facility] Location: [facility]19-1 History and Physical Date of Admission: 11/11/24 Date of Service: 11/07/24MR#: [id number] Acct: [id number] Name: CAROLYN ABBOTT Rep #: [id number] : 1950 Provider: Dr. Kathy Boss MD Age/Sex: 73/M Location: [facility] Status: Signed Intake Vital Signs 09/27/2512:07 11/07/2512:50 Height 5 ft 10 in 5 ft 10 in Weight: 218 lb 215 lb 8 oz BMI 31.2 30.9 BP 111/75 Blood Pressure Location Rt brachial Position Sitting Respiration 18 Pulse 74 Pulse Source Monitor Temp 97.2 F L Temp Source Temporal Pulse Oximetry (%) 99 Oxygen Delivery Method room air Intake Visit Reasons: GALLBLADDER Chief Complaint: gallbladder Accompanied by: Is patient in pain?: No Allergies clindamycin Allergy (Verified 11/07/24 13:50)SwellingSulfa (Sulfonamide Antibiotics) Allergy (Verified 11/07/24 13:50) Unknown, A CHILDallopurinol Adverse Reaction (Intermediate, Verified 11/07/24 13:50) Possible cause of rash on legs: went away after stoppingsimvastatin Adverse Reaction (Verified 11/07/24 13:50) myalgia Medications ???Medication ???Instructions ???Recorded ???Confirmed ???Type carbidopa 50 mg-levodopa 200 1 tab PO TID parkinsons 03/26/21 11/07/24 History mg-entacapone 200 mg tablet cholecalciferol (vitamin D3) 50 50 mcg PO DAILY 07/05/21 11/07/24 History mcg (2,000 unit) capsule carvedilol 25 mg tablet 25 mg PO BID 12/31/22 11/07/24 History amlodipine 10 mg tablet 10 mg PO QHS 01/06/23 11/07/24 History ascorbic acid (vitamin C) 500 mg 1,500 mg PO QDAY 09/27/24 11/07/24 History capsule carbidopa 25 mg-levodopa 100 mg 1 tab PO TID PRN 09/27/24 11/07/24 History tablet clonidine HCl 0.1 mg tablet 0.1 mg PO Q4H PRN 09/27/24 11/07/24 History ferrous sulfate 325 mg (65 mg 325 mg PO BID 09/27/24 11/07/24 History iron) tablet hydralazine 50 mg tablet 50 mg PO BID 09/27/24 11/07/24 History hydrochlorothiazide 12.5 mg tablet 12.5 mg PO QDAY 09/27/24 11/07/24 History magnesium 250 mg tablet 250 mg PO DAILY 09/27/24 11/07/24 History mecobalamin (vitamin B12) 5,000 5,000 mcg PO QDAY 09/27/24 11/07/24 History mcg chewable tablet pramipexole 0.25 mg tablet 0.25 mg PO QHS restless legs 09/27/24 11/07/24 His tory primidone 50 mg tablet 100 mg PO QAM 09/27/24 11/07/24 History primidone 50 mg tablet 150 mg PO QHS 09/27/24 11/07/24 History omeprazole 40 mg capsule,delayed 40 mg PO QDAY #30 caps 11/03/24 11/07/24 Rx release Have you fallen in the past year?: No PFSH Medical History (Updated 11/09/24 @ 11:[address] Kathy Boss MD) Gallstones Wears glasses Wears dentures Cancer Low iron Restless legs Back pain Dietary restriction Non-smoker CPAP (continuous positive airway pressure) dependence Leg cramps History of pain when walking History of edema History of echocardiogram History of stress test Cardiology follow-up encounter Hx of undescended testicle Varicose veins of both lower extremities Elevated blood pressure reading in office with white coat syndrome, without diagnosis of hypertension Uncontrolled hypertension Wears hearing aid in both ears Cellulitis of left lower extremity without foot Nonobstructive atherosclerosis of coronary artery History of non-ST elevation myocardial infarction (NSTEMI) (11/26/20) Hyperlipidemia CKD (chronic kidney disease) Obesity Essential (primary) hypertension Testicular malignancy Nonrheumatic aortic (valve) stenosis Parkinsons disease Tremor, essential Gout Surgical History S/P hernia repair History of colonoscopy History of lymph node excision History of left heart catheterization (01/21/21) History of surgical removal of testicle History of tonsillectomy Family History Father CAD (coronary artery disease) Sudden cardiac , Onset Age: 59 Myocard (more content not included)...[facility]03-14-2025 History and physical note Author Kathy Boss [facility] Note Date/Time November 11, 2024 12: 01pm [facility] Medical Records Department [address] [place] [address] History & Physical Exam 11/11/24 1052 MR#: [id number] Acct: [id number] Name: CAROLYN ABBOTT Rep #:[id number] : 1950 73 From: Kathy Boss MD PCP: Dr. aRzia Maya, DO Status:REG [facility] [place] [facility] Location: [address] History and Physical Date of Admission: 11/11/24 Date of Service: 11/07/24 MR#: [id number] Acct: [id number] Name: CAROLYN ABBOTT Rep #: [id number] : 1950 Provider: Dr. Kathy Boss MD Age/Sex: 73/M Location: [facility] Status: Signed Intake Vital Signs 09/27/2512:07 11/07/2512:50 Height 5 ft 10 in 5 ft 10 in Weight: 218 lb 215 lb 8 oz BMI 31.2 30.9 BP 111/75 Blood Pressure Location Rt brachial Position Sitting Respiration 18 Pulse 74 Pulse Source Monitor Temp 97.2 F L Temp Source Temporal Pulse Oximetry (%) 99 Oxygen Delivery Method room air Intake Visit Reasons: GALLBLADDER Chief Complaint: gallbladder Accompanied by: Is patient in pain?: No Allergies clindamycin Allergy (Verified 11/07/24 13:50) SwellingSulfa (Sulfonamide Antibiotics) Allergy (Verified 11/07/24 13:50) Unknown, A CHILDallopurinol Adverse Reaction (Intermediate, Verified 11/07/2512:50) Possible cause of rash on legs: went away after stoppingsimvastatin Adverse Reaction (Verified 11/07/24 13:50) myalgia Medications ?Medication ?Instructions ?Recorded ?Confirmed ?Type carbidopa 50 mg-levodopa 200 1 tab PO TID parkinsons 03/26/21 5 History mg-entacapone 200 mg tablet cholecalciferol (vitamin D3) 50 50 mcg PO DAILY 07/05/21 11/07/24 Histor y mcg (2,000 unit) capsule carvedilol 25 mg tablet 25 mg PO BID 12/31/22 11/07/24 History amlodipine 10 mg tablet 10 mg PO QHS 01/06/23 11/07/24 History ascorbic acid (vitamin C) 500 mg 1,500 mg PO QDAY 09/27/24 11/07/24 Histo ry capsule carbidopa 25 mg-levodopa 100 mg 1 tab PO TID PRN 09/27/24 11/07/24 Histo ry tablet clonidine HCl 0.1 mg tablet 0.1 mg PO Q4H PRN 09/27/24 11/07/24 Hist ory ferrous sulfate 325 mg (65 mg 325 mg PO BID 09/27/24 11/07/24 History iron) tablet hydralazine 50 mg tablet 50 mg PO BID 09/27/24 11/07/24 History hydrochlorothiazide 12.5 mg tablet 12.5 mg PO QDAY 09/27/24 11/07/24 Histor y magnesium 250 mg tablet 250 mg PO DAILY 09/27/24 11/07/24 Histor y mecobalamin (vitamin B12) 5,000 5,000 mcg PO QDAY 09/27/24 11/07/24 Hist ory mcg chewable tablet pramipexole 0.25 mg tablet 0.25 mg PO QHS restless legs 09/27/24 History primidone 50 mg tablet 100 mg PO QAM 09/27/24 11/07/24 History primidone 50 mg tablet 150 mg PO QHS 09/27/24 11/07/24 History omeprazole 40 mg capsule,delayed 40 mg PO QDAY #30 caps 11/03/24 11/07/24 Rx release Have you fallen in the past year?: No PFSH Medical History (Updated 11/09/24 @ 11:[address] Kathy Boss MD) Gallstones Wears glasses Wears dentures Cancer Low iron Restless legs Back pain Dietary restriction Non-smoker CPAP (continuous positive airway pressure) dependence Leg cramps History of pain when walking History of edema History of echocardiogram History of stress test Cardiology follow-up encounter Hx of undescended testicle Varicose veins of both lower extremities Elevated blood pressure reading in office with white coat syndrome, without diagnosis of hypertension Uncontrolled hypertension Wears hearing aid in both ears Cellulitis of left lower extremity without foot Nonobstructive atherosclerosis of coronary artery History of non-ST elevation myocardial infarction (NSTEMI) (11/26/20) Hyperlipidemia CKD (chronic kidney disease) Obesity Essential (primary) hypertension Testicular malignancy Nonrheumatic aortic (valve) stenosis Parkinsons disease Tremor, essential Gout Surgical History S/P hernia repair History of colonoscopy History of lymph node excision History of left heart catheterization (01/21/21) History of surgical removal of testicle History of tonsillectomy Family History Father CAD (coronary artery disease) Sudden cardiac , Onset Age: 59 Myocardial infarction, Onset Age: 59 HypertensionMother Heart disease HypertensionBrother Sudden cardiac , Onset Age: 68 Social History household members: spouse current occupational status: retired Smoking Status: Never smoker alcohol intake: never substance use type: does not use caffeine: No what type of physical activity do you participate in: bicycling frequency: 1-2 times per week duration: 30-45 minutes/day seatbelt use: always do you feel safe at home: Yes HPI HPI HPI: 73-year-old male presents due to gallstones. Patient states that about 2 weeks ago on Thursday he had right upper quadrant pain which occurred in the morning when he woke up. Patient last ate at 530 to 6 PM. Patient did just start omeprazole which she states is helping. Patient states he does have a decreasedappetite for about the last 6 weeks per patient and his . Patient has been able to eat peanut butter as well as chicken salad sandwich without any increased right upper quadrant pain. Patient states his pain is currently a 4/10 previous to this was occasionally got up to 10. Patient states his last colonoscopy was 6 to 7 years ago was told to come back in [address] Almazan. Will plan to get that report. Patient denies having polyps at that time. Patient does have bowel movements about every 2 days does take a senna if it goes beyond that. Patient denies any family history of colon cancer. ROS General General: Yes weight change (loss), appetite and fatigue; No colon cancer, breast cancer or weakness Additional Details: loss of appetite HEENT HEENT: No difficulty swallowing, eye injury, eye surgery, swollen glands or hoarseness Endo Endocrine: No thyroid disease, diabetes mellitus, thyroid cancer, Hair loss, heat intolerance or cold intolerance Skin Skin: Yes rash; No changing moles Musc Musculoskeletal: Yes back problems and gout; No arthritis, rheumatoid arthritis or joint pain Cardio Cardiovascular: Yes murmur and high blood pressure; No pacemaker, heart disease, atrial fibrillation, heart attack, heart stent, palpitations, shortness of breath with exertion or chest pain Psych Psychiatric: No depression, anxiety or hearing voices Resp Respiratory: No shortness of breath, Yes sleep apnea, No cough, No COPD, No asthma, No emphysema and No wheezing Gastro Gastrointestinal: Yes abdominal pain, Yes nausea or vomiting, No diarrhea, Yes constipation, No blood in stool, No acid reflux, No hemorrhoids, No ulcers, Yes gallbladder problem and No black,tarry stools Matthew Hematologic: No blood thinners, No blood disorders, No bleeding, Yes anemia and No blood clots Neuro Neurologic: No numbness, No tingling and No weakness Exam Const General: cooperative, healthy appearing, comfortable and no acute distress HENMT Head: normocephalic and atraumatic Neck Neck: supple Resp Effort & Inspection: normal respiratory effort Cardio Rate: regular rate GI Inspection: non-distended Palpation: soft and nontender Skin General: no rashes or lesions noted Neuro General: CN's II-XI intact bilaterally Extrem General: normal to inspection Psych Mental Status: mental status grossly normal Attitude: cooperative Assessment and Plan Assessment and Plan (1) GERD (gastroesophageal reflux disease): Status: Acute (2) Gallstones: Status: Acute Orders: Orders Colonoscopy 11/11/24 EGD 11/11/24 Plan Discussed with patient and his that his history sounds more like reflux or gastric etiology versus gallstones. As patient is able to eat fatty greasy foods without any issues since pain usually occurs in the morning before ever eating. Will have patient continue the omeprazole 40 mg p.o. daily. Also plan to do an EGD. Will also get the report from patient's last colonoscopy to see if he is due for colonoscopy if so we will plan to do it at the same time. I have discussed the above with the patient. I have offered the patient esophagogastroduodenoscopy and colonoscopy for evaluation. I have explained the risks/benefits of the procedure and described the procedure. I have discussed the risks with the patient, including but not limited to: infection, bleeding, perforation of the GI tract requiring emergency surgery, inability to complete the procedure, injury to any internal organs, complications of anesthesia, etc. - the patient understands and agrees to proceed. I have answered all the patient's questions to the patient's satisfaction and the patient has no further questions. The patient has been given instructions for the colon cleansing preparation. 1 day of clears, MiraLAX Dulcolax prep. Kathy Boss M.D. Pager: [phone] [facility] [address] [place] [address], [address] [place] [address] Office: [phone] Coding Level of Care Code Off vis,est,level 3 Diagnoses GERD (gastroesophageal reflux disease) K21.9 Gallstones K80.20 Clinical Quality Measures Falls Risk Screening/Assistive Devices Have you fallen in the past year?: No 11/09/24 1137 <Electronically signed by Kathy Boss MD> Date Kathy Boss MD 11/11/24 1053 <Electronically signed by Kathy Boss MD> Cosigner Signature (if applicable): CC: Dr. Razia Maya DO; Dr. Kathy Boss MD~ Signed ADDENDUM by Dr. Kathy Boss MD on 11/11/24 at 1201 Addendum I have examined the patient and the H&P has been reviewed. There are no clinicalchanges since date of exam. 11/11/24 1201<Electronically signed by Kathy Boss MD> Cosigner Signature (if applicable): cc: Dr. Razia Maya DO; Dr. Kathy Boss MD ~* Signed [facility] Work Phone: [phone] 375-877703-14-2025 Procedure note [facility] Medical Records Department [address] [place] [address] Colonoscopy Report MR#: [id number] Acct: [id number] Name: CAROLYN ABBOTT Rep #:[id number] : 1950 73 From: Kathy Boss MD PCP: Dr. Razia Maya DO Status:[facility] Patient Name: Carolyn Abbott Procedure Date: 11/11/2024 12:14 PM Date of : 1950 Age: 73 Procedure: Colonoscopy Indications: High risk colon cancer surveillance: Personal history of colonic polyps Providers: Kathy Boss MD Referring MD: Razia Maya Medicines: Monitored Anesthesia Care Patient Profile: This is a 73 year old male. Last Colonoscopy: several years ago. Complications: No immediate complications. Procedure: Pre-Anesthesia Assessment: - Prior to the procedure, a History and Physical was performed, and patient medications and allergies were reviewed. The patient's tolerance of previous anesthesia was also reviewed. The risks and benefits of the procedure and the sedation options and risks were discussed with the patient. All questions were answered, and informed consent was obtained. Prior Anticoagulants: The patient has taken no anticoagulant or antiplatelet agents. ASA Grade Assessment: Per anesthesia. After reviewing the risks and benefits, the patient was deemed in satisfactory condition to undergo the procedure. - Prior to the procedure, a History and Physical was performed, and patient medications and allergies were reviewed. The patient's tolerance of previous anesthesia was also reviewed. The risks and benefits of the procedure and the sedation options and risks were discussed with the patient. All questions were answered, and informed consent was obtained. Prior Anticoagulants: The patient has taken no anticoagulant or antiplatelet agents. ASA Grade Assessment: Per anesthesia. After reviewing the risks and benefits, the patient was deemed in satisfactory condition to undergo the procedure. After I obtained informed consent, the scope was passed under direct vision. Throughout the procedure, the patient's blood pressure, pulse, and oxygen saturations were monitored continuously. The Colonoscope was introduced through the anus and advanced to the cecum, identified by the appendiceal orifice, ileocecal valve and palpation. The colonoscopy was performed without difficulty. The patient tolerated the procedure well. The quality of the bowel preparation was good. Scope In: 12:15:07 PM Scope Withdrawal Time 0 hours 20 minutes 29 seconds Scope Out: 12:47:19 PM Total Procedure Duration Time 0 hours 32 minutes 12 seconds Findings: The perianal and digital rectal examinations were normal. Two semi-pedunculated polyps were found in the sigmoid colon and descending colon. The polyps were 4 to 6 mm in size. These polyps were removed with a hot snare. Resection and retrieval were complete. The exam was otherwise without abnormality on direct and retroflexion views. A less than 5 mm polyp was found in the ascending colon. The polyp was sessile. The polyp was removed with a cold biopsy forceps. Resection and retrieval were complete. Impression: - Two 4 to 6 mm polyps in the sigmoid colon and in the descending colon, removed with a hot snare. Resected and retrieved. - The examination was otherwise normal on direct and retroflexion views. - One less than 5 mm polyp in the ascending colon, removed with a cold biopsy forceps. Resected and retrieved. Recommendation: - Await pathology results. - Repeat colonoscopy in 3 - 5 years for surveillance based on pathology results. - Continue present medications. Procedure Code(s): --- Professional --- 78519, PT, Colonoscopy, flexible; with removal of tumor(s), polyp(s), or other lesion(s) by snare technique 14121, 59, Colonoscopy, flexible; with biopsy, single or multiple Diagnosis Code(s): --- Professional --- Z86.010, Personal history of colonic polyps D12.5, Benign neoplasm of sigmoid colon D12.4, Benign neoplasm of descending colon D12.2, Benign neoplasm of ascending colon CPT copyright 2021 [employer]. All rights reserved. The codes documented in this report are preliminary and upon whizzer hand review may be revised to meet current compliance requirements. MD Kathy Martinez MD 11/11/2024 1:06:04 PM This report has been signed electronically. Number of Addenda: 0 Note Initiated On: 11/11/2024 12:14 PM 11/11/24 1306 Date _ Kathy Boss MD Cosigner Signature: Date (if indicated) CC: Dr. Razia Maya, DO; Dr. Kathy Boss MD ~ Date Dictated: 11/11/24 1214 Date Transcribed: Application Security Specialist: TR Signed [facility]03-14-2025 Procedure note [facility] Medical Records Department [address] [place] [address] Operative Report - CC Letter MR#: [id number] Acct: [id number] Name: CAROLYN ABBOTT Rep #:[id number] : 1950 73 From: Kathy Boss MD PCP: Dr. Razia Maya DO Status:[facility] 11/11/2024 Razia Maya [address] [facility] [place] [address] [place] [address] Re : Colonoscopy procedure for Carolyn Abbott Dear Dr. Maya This procedure was performed on Monday, November 11, 2024. My impressions and recommendations are as follows: Impressions : - Two 4 to 6 mm polyps in the sigmoid colon and in the descending colon, removed with a hot snare. Resected and retrieved. - The examination was otherwise normal on direct and retroflexion views. - One less than 5 mm polyp in the ascending colon, removed with a cold biopsy forceps. Resected and retrieved. Recommendations : - Await pathology results. - Repeat colonoscopy in 3 - 5 years for surveillance based on pathology results. - Continue present medications. My findings are described in the full procedure note, which is enclosed. If I can be of further assistance, please feel free to contact me at Doctor phone number(s): , Work: . Sincerely, MD Kathy Martinez MD 11/11/2024 1:06:04 PM This report has been signed electronically. 11/11/24 1306 Date _ Kathy Boss MD Cosigner Signature: Date (if indicated) CC: Dr. Razia Maya DO; Dr. Kathy Boss MD ~ Date Dictated: 11/11/24 1214 Date Transcribed: Application Security Specialist: TR Signed [facility]03-14-2025 Procedure note [facility] Medical Records Department [address] [place] [address] EGD Report MR#: [id number] Acct: [id number] Name: CAROLYN ABBOTT Rep #:[id number] : 1950 73 From: Kathy Boss MD PCP: Dr. Razia Maya, DO Status:REG [facility] [place] [place] Patient Name: Carolyn Abbott Procedure Date: 11/11/2024 11:39 AM Date of : 1950 Age: 73 Procedure: Upper GI endoscopy Indications: Epigastric abdominal pain, Abdominal pain in the right upper quadrant Providers: Kathy Boss MD Referring MD: Razia Maya Medicines: Monitored Anesthesia Care Patient Profile: This is a 73 year old male. Complications: No immediate complications. Procedure: Pre-Anesthesia Assessment: - Prior to the procedure, a History and Physical was performed, and patient medications and allergies were reviewed. The patient's tolerance of previous anesthesia was also reviewed. The risks and benefits of the procedure and the sedation options and risks were discussed with the patient. All questions were answered, and informed consent was obtained. Prior Anticoagulants: The patient has taken no anticoagulant or antiplatelet agents. ASA Grade Assessment: Per anesthesia. After reviewing the risks and benefits, the patient was deemed in satisfactory condition to undergo the procedure. After obtaining informed consent, the endoscope was passed under direct vision. Throughout the procedure, the patient's blood pressure, pulse, and oxygen saturations were monitored continuously. The Colonoscope was introduced through the mouth, and advanced to the second part of duodenum. The upper GI endoscopy was accomplished without difficulty. The patient tolerated the procedure well. Scope In: 12:07:21 PM Scope Out: 12:14:32 PM Total Procedure Duration Time 0 hours 7 minutes 11 seconds Findings: The Z-line was variable and was found 40 cm from the incisors. Striped mildly erythematous mucosa without bleeding was found in the gastric antrum. Biopsies were taken with a cold forceps for histology. Biopsies were taken with a cold forceps for Helicobacter pylori cultures. The examined duodenum was normal. The cardia and gastric fundus were normal on retroflexion. Impression: - Z-line variable, 40 cm from the incisors. - Erythematous mucosa in the antrum. Biopsied. - Normal examined duodenum. Recommendation: - Await pathology results. - Discharge patient to home. - Resume previous diet. - Continue present medications. - Use sucralfate tablets 1 gram PO QID for 2 weeks. Procedure Code(s): --- Professional --- 77835, Esophagogastroduodenoscopy, flexible, transoral; with biopsy, single or multiple Diagnosis Code(s): --- Professional --- K22.89, Other specified disease of esophagus K31.89, Other diseases of stomach and duodenum R10.13, Epigastric pain R10.11, Right upper quadrant pain CPT copyright 2021 [employer]. All rights reserved. The codes documented in this report are preliminary and upon whizzer hand review may be revised to meet current compliance requirements. MD Kathy Martinez MD 11/11/2024 1:00:00 PM This report has been signed electronically. Number of Addenda: 0 Note Initiated On: 11/11/2024 11:39 AM 11/11/24 1300 Date _ Kathy Boss MD Cosigner Signature: Date (if indicated) CC: Dr. Razia Maya, ; Dr. Kathy Boss MD ~ Date Dictated: 11/11/24 1139 Date Transcribed: Application Security Specialist: TR Signed [facility]03-14-2025 Procedure note [facility] Medical Records Department [address] [place] [address] Operative Report - CC Letter MR#: [id number] Acct: [id number] Name: CAROLYN ABBOTT Rep #:[id number] : 1950 73 From: Kathy Boss MD PCP: Dr. Razia Maya, DO Status:REG [facility] [place] 11/11/2024 Razia Maya [address] [facility] [place] [address] [place] [address] Re : Upper GI endoscopy procedure for Carolyn Abbott Dear Dr. Maya This procedure was performed on Monday, November 11, 2024. My impressions and recommendations are as follows: Impressions : - Z-line variable, 40 cm from the incisors. - Erythematous mucosa in the antrum. Biopsied. - Normal examined duodenum. Recommendations : - Await pathology results. - Discharge patient to home. - Resume previous diet. - Continue present medications. - Use sucralfate tablets 1 gram PO QID for 2 weeks. My findings are described in the full procedure note, which is enclosed. If I can be of further assistance, please feel free to contact me at Doctor phone number(s): , Work: . Sincerely, MD Kathy Martinez MD 11/11/2024 1:00:00 PM This report has been signed electronically. 11/11/24 1300 Date _ Kathy Boss MD Cosigner Signature: Date (if indicated) CC: Dr. Razia Maya DO; Dr. Kathy Boss MD ~ Date Dictated: 11/11/24 1139 Date Transcribed: Application Security Specialist: FRED Signed [facility]03-14-2025 Consult note [facility] Medical Records Department [address] [place] [address] Anesthesia Postop Eval I 11/11/24 1257 MR#: [id number] Acct: [id number] Name: CAROLYN ABBOTT Rep #:[id number] : 1950 73 From: Jarad Pedro CRNA PCP: Dr. Razia Maya DO Status:REG [facility] Y Race: C Location: [place] [address] Anesthesia: Postop Eval I Current Vital Signs Temperature: 97.2 F Pulse Rate: 59 Blood Pressure: 123/76 Respiratory Rate: 20 Pulse Ox: 98 Oxygen Delivery Method: Room Air Assessment Airway patent: Yes Spontaneous unlabored respirations: Yes Mental status: Awake nausea: No Vomiting: No Anesthesia Complication: No Fluid Hydration Crystalloid volume administer (ml): 20 Total IV fluid infused: 20 Progress Note Anesthesia document: Postop Eval 1 completed: Yes 11/11/24 1258 y SCUTCHER TENDER> Date _ Jarad Pedro SCUTCHER TENDER Cosigner Signature: Date CC: ~ Signed [facility]03-14-2025 Consult note Author Shade Roldan [facility] Note Date/Time November 11, 2024 10: 57am [facility] Medical Records Department [address] [place] [address] Pre-Anesthesia Evaluation 11/11/24 1056 MR#: [id number] Acct: [id number] Name: CAROLYN ABBOTT Rep #:[id number] : 1950 73 From: Shade Roldan MD PCP: Dr. Razia Maya, DO Status:REG [facility] Y Race: C Location: [place] [address] ASA Classification* ASA Classification ASA Classification: 2 Assessment & Plan Anesthesia* Anesthesia Assessment Anesthesia Assessment: Discussed sedation and/or anesthesia options, risks, benefits, and alternatives with patient/parents/legal guardian/POA. Questions invited. The patient/parents/legal guardian/POA seems to understand and agrees to proceedwith anesthesia plan. Reviewed the physical assessment, medical history, allergy history and patient home medications list prior to surgery/procedure/anesthetic and documented any changes. Performed airway and anesthesia risk assessments. Anesthesia Type Anesthesia Type: MAC Anesthesia Focused Assessment* Airway Assessment Mouth opens: >3 cm Mallampati Score: II Focused Labs Anesthesia Preop lab: CBC WBC 5.3 K/mm3 (4.4-11.0) 10/24/24 15:55 10/24/24 RBC 3.46 M/mm3 (4.6-6.2) L 10/24/24 15:55 10/24/24 Hgb 10.3 g/dL (13.0-16.5) L 10/24/24 15:55 5 Hct 30.4 % (40-54) L 10/24/24 15:55 10/24/24 Plt Count 182 K/mm3 (150-450) 10/24/24 15:55 10/24/24 CHEMISTRY Potassium 4.5 mmol/L (3.5-5.1) 10/24/24 15:55 10/24/24 Sodium 139 mmol/L (136-145) 10/24/24 15:55 10/24/24 Magnesium 2.2 mg/dL (1.6-2.6) 03/09/23 13:54 03/09/23 Phosphorus 3.3 mg/dL (2.5-4.9) 09/19/24 08:10 09/19/24 BUN 39 mg/dL (7-18) H 10/24/24 15:55 10/24/24 Creatinine 1.50 mg/dL (0.70-1.30) H 10/24/24 15:55 Glucose 98 mg/dL (74-106) 10/24/24 15:55 10/24/24 TSH 1.95 uIU/mL (0.358-3.74) 10/22/23 08:55 COAG PT 12.7 SECONDS (11.7-14.9) 11/26/20 04:40 Pre-Assessment Diagnosis/Proposed Procedure Planned Operative Procedure(s): EGD, COLONOSCOPY Anesthesia History Anesthesia History - sprayer hand: Anesthesia History - sprayer hand Hx Hospitalization No 11/10/24 13:54 Any Problems With Anesthesia No 11/10/24 13:54 Cholinesterase deficiency No 11/10/24 13:54 You/Your Family Experience No 11/10/24 13:54 fever (hyperthermia) with Relationship Recent Exposure to Contagious No 01/07/23 10:28 Disease Does patient have nerve No 11/10/24 13:54 stimulator Patient instructed to have device shut off --Does patient have Pacemaker or ICD? When Was Last Pacemaker Check QUESTION #4 FULL TEXT: You/Your Family Experience fever (hyperthermia) with Anesthesia Last Oral Intake Last Oral intake: Last Oral Intake NPO since Meds taken in AM with sips of water? Meds patient instructed to take am of surgery PONV PONV - sprayer hand: PONV - sprayer hand Female No 11/10/24 13:54 HX of Motion Sickness No 11/10/24 13:54 HX of N/V After Surgery No 11/10/24 13:54 Non-Smoker Yes 11/10/24 13:54 Duration of Surgery greater No 11/10/24 13:54 than 60 minutes Number of Risk Factors 1 11/10/24 13:54 PONV Score Low Risk 11/10/24 13:54 Height & Weight Height & Weight: Anesthesia: Height & Weight Height 5 ft 10 in 11/07/24 13:50 Respiratory Assessment Respiratory Assessment - sprayer hand: Respiratory Tract Infection Hx - sprayer hand Hx Respiratory Tract Infection No 11/10/24 13:54 STOP Sleep Apnea STOP Sleep Apnea - sprayer hand: STOP Sleep Apnea - sprayer hand Hx Hypertension Yes 11/10/24 13:54 Hx Sleep Apnea Yes 11/10/24 13:54 CPAP Yes 11/10/24 13:54 BIPAP No 11/10/24 13:54 Do you snore loudly (louder than talking or can be heard Do you often feel tired/ fatigued/ sleepy during daytime? Has anyone observed you stop breathing during sleep? STOP Results Positive 11/10/24 13:54 QUESTION #5 FULL TEXT : Do you snore loudly (louder than talking or can be heard through closed doors)? 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 Specify any problems Hx of Preganancy in last 3 N/A 11/10/24 13:54 Months Nurse Filling Out Transfusion VLEHMAN 11/10/24 13:54 & Questions: Date: 11/10/24 11/10/24 13:54 Time: 14:03 11/10/24 13:54 Patient unable to answer at this time (ie. confused, unrespo /Reproduction History /Reproductive History - sprayer hand: /Reproductive Hx- sprayer hand Hx Now Gestational Age (in weeks): EDC: Hx Hx Para Hx Section SAB No 12/31/22 09:04 [facility] Medical History Wears hearing aid History of renal disease Anemia Sleep apnea Gallstones Wears glasses Wears dentures Cancer Low iron Restless legs Back pain Dietary restriction Non-smoker CPAP (continuous positive airway pressure) dependence Leg cramps History of pain when walking History of edema History of echocardiogram History of stress test Cardiology follow-up encounter Hx of undescended testicle Varicose veins of both lower extremities Elevated blood pressure reading in office with white coat syndrome, without diagnosis of hypertension Uncontrolled hypertension Wears hearing aid in both ears Cellulitis of left lower extremity without foot Nonobstructive atherosclerosis of coronary artery History of non-ST elevation myocardial infarction (NSTEMI) (11/26/20) Hyperlipidemia CKD (chronic kidney disease) Obesity Essential (primary) hypertension Testicular malignancy Nonrheumatic aortic (valve) stenosis Parkinsons disease Tremor, essential Gout Home Medications ?Medication ?Instructions ?Recorded ?Last Taken ?Type carbidopa 50 mg-levodopa 200 1 tab PO TID parkinsons 0 03/26/21 01/07/23 History mg-entacapone 200 mg tablet cholecalciferol (vitamin D3) 50 50 mcg PO DAILY 01/06/23 History mcg (2,000 unit) capsule carvedilol 25 mg tablet 25 mg PO BID 12/31/22 History amlodipine 10 mg tablet 10 mg PO QHS 01/06/23 History ascorbic acid (vitamin C) 500 mg 500 mg PO BID 5 Unknown History capsule carbidopa 25 mg-levodopa 100 mg 1 tab PO TID PRN TREMO RS 09/27/24 Unknown History tablet clonidine HCl 0.1 mg tablet 0.1 mg PO Q8H PRN hyperten sive 09/27/24 Unknown History emergency ferrous sulfate 325 mg (65 mg 325 mg PO BID 09/27/24 U nknown History iron) tablet hydralazine 50 mg tablet 50 mg PO Q6H 09/27/24 Unknow n History hydrochlorothiazide 12.5 mg tablet 12.5 mg PO QDAY Unknown History magnesium 250 mg tablet 250 mg PO BID 09/27/24 Unkno wn History mecobalamin (vitamin B12) 5,000 1,000 mcg PO QDAY 09/01 04/24 Unknown History mcg chewable tablet pramipexole 0.25 mg tablet 0.25 mg PO QHS restless leg s 09/27/24 Unknown History primidone 50 mg tablet 100 mg PO QAM 09/27/24 Unkno wn History primidone 50 mg tablet 150 mg PO QHS 09/27/24 Unkno wn History omeprazole 40 mg capsule,delayed 40 mg PO QDAY #30 cap s 11/03/24 Unknown Rx release Allergy/AdvReac Type Severity Reaction Status Date / Time clindamycin Allergy Swelling Verified 11/10/24 13:45 Sulfa (Sulfonamide Allergy Unknown, Verified 11/10/24 13:45 Antibiotics) A CHILD allopurinol AdvReac Intermediate Possible Verified 11/10/24 13:45 cause of rash on legs: went away after stopping simvastatin AdvReac myalgia Verified 11/10/24 13:45 Family History Father CAD (coronary artery disease) Sudden cardiac , Onset Age: 59 Myocardial infarction, Onset Age: 59 Hypertension Mother Heart disease Hypertension Brother Sudden cardiac , Onset Age: 68 Surgical History History of cardiac catheterization S/P hernia repair History of colonoscopy History of lymph node excision History of left heart catheterization (01/21/21) History of surgical removal of testicle History of tonsillectomy Social History household members: spouse current occupational status: retired Smoking Status: Never smoker alcohol intake: never substance use type: does not use caffeine: No what type of physical activity do you participate in: bicycling frequency: 1-2 times per week duration: 30-45 minutes/day seatbelt use: always do you feel safe at home: Yes Review of Systems (Anesthesia) ROS Narrative System reviewed and no additional complaints, except as documented. 11/11/24 1057 <Electronically signed by Shade Roldan MD > Date _ Shade Roldan MD Cosigner Signature: Date CC: ~ Signed [facility] Work Phone: [phone] History and physical note [facility] Medical Records Department [address] [place] [address] History & Physical Exam 11/11/24 105 MR#: [id number] Acct: [id number] Name: CAROLYN ABBOTT Rep #:[id number] : 1950 73 From: Kathy Boss MD PCP: Dr. Razia Maya DO Status:[facility] Location: [place] [address] History and Physical Date of Admission: 11/11/24 Date of Service: 11/07/24 MR#: [id number] Acct: [id number] Name: CAROLYN ABBOTT Rep #: [id number] : 1950 Provider: Dr. Kathy Boss MD Age/Sex: 73/M Location: [facility] Status: Signed Intake Vital Signs 09/27/2512:07 11/07/2512:50 Height 5 ft 10 in 5 ft 10 in Weight: 218 lb 215 lb 8 oz BMI 31.2 30.9 BP 111/75 Blood Pressure Location Rt brachial Position Sitting Respiration 18 Pulse 74 Pulse Source Monitor Temp 97.2 F L Temp Source Temporal Pulse Oximetry (%) 99 Oxygen Delivery Method room air Intake Visit Reasons: GALLBLADDER Chief Complaint: gallbladder Accompanied by: Is patient in pain?: No Allergies clindamycin Allergy (Verified 11/07/24 13:50) SwellingSulfa (Sulfonamide Antibiotics) Allergy (Verified 11/07/24 13:50) Unknown, A CHILDallopurinol Adverse Reaction (Intermediate, Verified 11/07/2512:50) Possible cause of rash on legs: went away after stoppingsimvastatin Adverse Reaction (Verified 11/07/24 13:50) myalgia Medications ?Medication ?Instructions ?Recorded ?Confirmed ?Type carbidopa 50 mg-levodopa 200 1 tab PO TID parkinsons 03/26/21 5 History mg-entacapone 200 mg tablet cholecalciferol (vitamin D3) 50 50 mcg PO DAILY 07/05/21 11/07/24 Histor y mcg (2,000 unit) capsule carvedilol 25 mg tablet 25 mg PO BID 12/31/22 11/07/24 History amlodipine 10 mg tablet 10 mg PO QHS 01/06/23 11/07/24 History ascorbic acid (vitamin C) 500 mg 1,500 mg PO QDAY 09/27/24 11/07/24 Histo ry capsule carbidopa 25 mg-levodopa 100 mg 1 tab PO TID PRN 09/27/24 11/07/24 Histo ry tablet clonidine HCl 0.1 mg tablet 0.1 mg PO Q4H PRN 09/27/24 11/07/24 Hist ory ferrous sulfate 325 mg (65 mg 325 mg PO BID 09/27/24 11/07/24 History iron) tablet hydralazine 50 mg tablet 50 mg PO BID 09/27/24 11/07/24 History hydrochlorothiazide 12.5 mg tablet 12.5 mg PO QDAY 09/27/24 11/07/24 Histor y magnesium 250 mg tablet 250 mg PO DAILY 09/27/24 11/07/24 Histor y mecobalamin (vitamin B12) 5,000 5,000 mcg PO QDAY 09/27/24 11/07/24 Hist ory mcg chewable tablet pramipexole 0.25 mg tablet 0.25 mg PO QHS restless legs 09/27/24 History primidone 50 mg tablet 100 mg PO QAM 09/27/24 11/07/24 History primidone 50 mg tablet 150 mg PO QHS 09/27/24 11/07/24 History omeprazole 40 mg capsule,delayed 40 mg PO QDAY #30 caps 11/03/24 11/07/24 Rx release Have you fallen in the past year?: No PFSH Medical History (Updated 11/09/24 @ 11:[address] Kathy Boss MD) Gallstones Wears glasses Wears dentures Cancer Low iron Restless legs Back pain Dietary restriction Non-smoker CPAP (continuous positive airway pressure) dependence Leg cramps History of pain when walking History of edema History of echocardiogram History of stress test Cardiology follow-up encounter Hx of undescended testicle Varicose veins of both lower extremities Elevated blood pressure reading in office with white coat syndrome, without diagnosis of hypertension Uncontrolled hypertension Wears hearing aid in both ears Cellulitis of left lower extremity without foot Nonobstructive atherosclerosis of coronary artery History of non-ST elevation myocardial infarction (NSTEMI) (11/26/20) Hyperlipidemia CKD (chronic kidney disease) Obesity Essential (primary) hypertension Testicular malignancy Nonrheumatic aortic (valve) stenosis Parkinsons disease Tremor, essential Gout Surgical History S/P hernia repair History of colonoscopy History of lymph node excision History of left heart catheterization (01/21/21) History of surgical removal of testicle History of tonsillectomy Family History Father CAD (coronary artery disease) Sudden cardiac , Onset Age: 59 Myocardial infarction, Onset Age: 59 HypertensionMother Heart disease HypertensionBrother Sudden cardiac , Onset Age: 68 Social History household members: spouse current occupational status: retired Smoking Status: Never smoker alcohol intake: never substance use type: does not use caffeine: No what type of physical activity do you participate in: bicycling frequency: 1-2 times per week duration: 30-45 minutes/day seatbelt use: always do you feel safe at home: Yes HPI HPI HPI: 73-year-old male presents due to gallstones. Patient states that about 2 weeks ago on Thursday he hadright upper quadrant pain which occurred in the morning when he woke up. Patient last ate at 530 to6 PM. Patient did just start omeprazole which she states is helping. Patient states he does have a decreasedappetite for about the last 6 weeks per patient and his . Patient has been able to eat p eanut butter as well as chicken salad sandwich without any increased right upper quadrant pain. Patient states his pain is currently a 4/10 previous to this was occasionally got up to 10. Patient states his last colonoscopy was 6 to 7 years ago was told to come back in [address] Almazan. Will plan to get that report. Patient denies having polyps at that time. Patient does have bowel movementsabout every 2 days does take a senna if it goes beyond that. Patient denies any family history of colon cancer. ROS General General: Yes weight change (loss), appetite and fatigue; No colon cancer, breast cancer or weakness Additional Details: loss of appetite HEENT HEENT: No difficulty swallowing, eye injury, eye surgery, swollen glands or hoarseness Endo Endocrine: No thyroid disease, diabetes mellitus, thyroid cancer, Hair loss, heat intolerance or cold intolerance Skin Skin: Yes rash; No changing moles Musc Musculoskeletal: Yes back problems and gout; No arthritis, rheumatoid arthritis or joint pain Cardio Cardiovascular: Yes murmur and high blood pressure; No pacemaker, heart disease, atrial fibrillation, heart attack, heart stent, palpitations, shortness of breath with exertion or chest pain Psych Psychiatric: No depression, anxiety or hearing voices Resp Respiratory: No shortness of breath, Yes sleep apnea, No cough, No COPD, No asthma, No emphysema and No wheezing Gastro Gastrointestinal: Yes abdominal pain, Yes nausea or vomiting, No diarrhea, Yes constipation, No blood in stool, No acid reflux, No hemorrhoids, No ulcers, Yes gallbladder problem and No black,tarry stools Matthew Hematologic: No blood thinners, No blood disorders, No bleeding, Yes anemia and No blood clots Neuro Neurologic: No numbness, No tingling and No weakness Exam Const General: cooperative, healthy appearing, comfortable and no acute distress [facility] Head: normocephalic and atraumatic Neck Neck: supple Resp Effort & Inspection: normal respiratory effort Cardio Rate: regular rate GI Inspection: non-distended Palpation: soft and nontender Skin General: no rashes or lesions noted Neuro General: CN's II-XI intact bilaterally Extrem General: normal to inspection Psych Mental Status: mental status grossly normal Attitude: cooperative Assessment and Plan Assessment and Plan (1) GERD (gastroesophageal reflux disease): Status: Acute (2) Gallstones: Status: Acute Orders: Orders Colonoscopy 11/11/24 EGD 11/11/24 Plan Discussed with patient and his that his history sounds more like reflux or gastric etiology versus gallstones. As patient is able to eat fatty greasy foods without any issues since pain usually occurs in the morning before ever eating. Will have patient continue the omeprazole 40 mg p.o. daily. Also plan to do an EGD. Will also get the report from patient's last colonoscopy to see if he is du e for colonoscopy if so we will plan to do it at the same time. I have discussed the above with the patient. I have offered the patient esophagogastroduodenoscopy and colonoscopy for evaluation. I have explained the risks/benefits of the procedure and described the procedure. I have discussed the risks with the patient, including but not limited to: infection, bleeding, perforation of the GItract requiring emergency surgery, inability to complete the procedure, injury to any internal organs, complications of anesthesia, etc. - the patient understands and agrees to proceed. I have answered all the patient's questions to the patient's satisfaction and the patient has no further questions. The patient has been given instructions for the colon cleansing preparation. 1 day of clears, MiraLAX Dulcolax prep. Kathy Boss M.D. Pager: [phone] [facility] [address] [place] [address], [address] [place] [address] Office: [phone] Coding Level of Care Code Off vis,est,level 3 Diagnoses GERD (gastroesophageal reflux disease) K21.9 Gallstones K80.20 Clinical Quality Measures Falls Risk Screening/Assistive Devices Have you fallen in the past year?: No 11/09/24 1137 Date Kathy Boss MD 11/11/24 1053 Cosigner Signature (if applicable): CC: Dr. Razia Maya DO; Dr. Kathy Boss MD~ Signed ADDENDUM by Dr. Kathy Boss MD on 11/11/24 at 1201 Addendum I have examined the patient and the H&P has been reviewed. There are no clinicalchanges since date of exam. 11/11/24 1201 Cosigner Signature (if applicable): cc: Dr. Razia Maya, DO; Dr. Kathy Boss MD ~* Signed [facility]03-14-2025 Consult note [facility] Medical Records Department [address] [place] [address] Pre-Anesthesia Evaluation 11/11/24 1056 MR#: [id number] Acct: [id number] Name: CAROLYN ABBOTT Rep #:[id number] : 1950 73 From: Shade Roldan MD PCP: Dr. Razia Maya DO Status:REG SDC Y Race: C Location: [place] [address] ASA Classification* ASA Classification ASA Classification: 2 Assessment & Plan Anesthesia* Anesthesia Assessment Anesthesia Assessment: Discussed sedation and/or anesthesia options, risks, benefits, and alternatives with patient/parents/legal guardian/POA. Questions invited. The patient/parents/legal guardian/POA seems to understand and agrees to proceedwith anesthesia plan. Reviewed the physical assessment, medical history, allergy history and patient home medications list prior to surgery/procedure/anesthetic and documented any changes. Performed airway and anesthesia risk assessments. Anesthesia Type Anesthesia Type: MAC Anesthesia Focused Assessment* Airway Assessment Mouth opens: >3 cm Mallampati Score: II Focused Labs Anesthesia Preop lab: CBC WBC 5.3 K/mm3 (4.4-11.0) 10/24/24 15:55 10/24/24 RBC 3.46 M/mm3 (4.6-6.2) L 10/24/24 15:55 10/24/24 Hgb 10.3 g/dL (13.0-16.5) L 10/24/24 15:55 5 Hct 30.4 % (40-54) L 10/24/24 15:55 10/24/24 Plt Count 182 K/mm3 (150-450) 10/24/24 15:55 10/24/24 CHEMISTRY Potassium 4.5 mmol/L (3.5-5.1) 10/24/24 15:55 10/24/24 Sodium 139 mmol/L (136-145) 10/24/24 15:55 10/24/24 Magnesium 2.2 mg/dL (1.6-2.6) 03/09/23 13:54 03/09/23 Phosphorus 3.3 mg/dL (2.5-4.9) 09/19/24 08:10 09/19/24 BUN 39 mg/dL (7-18) H 10/24/24 15:55 10/24/24 Creatinine 1.50 mg/dL (0.70-1.30) H 10/24/24 15:55 Glucose 98 mg/dL (74-106) 10/24/24 15:55 10/24/24 TSH 1.95 uIU/mL (0.358-3.74) 10/22/23 08:55 COAG PT 12.7 SECONDS (11.7-14.9) 11/26/20 04:40 Pre-Assessment Diagnosis/Proposed Procedure Planned Operative Procedure(s): EGD, COLONOSCOPY Anesthesia History Anesthesia History - sprayer hand: Anesthesia History - sprayer hand Hx Hospitalization No 11/10/24 13:54 Any Problems With Anesthesia No 11/10/24 13:54 Cholinesterase deficiency No 11/10/24 13:54 You/Your Family Experience No 11/10/24 13:54 fever (hyperthermia) with Relationship Recent Exposure to Contagious No 01/07/23 10:28 Disease Does patient have nerve No 11/10/24 13:54 stimulator Patient instructed to have device shut off --Does patient have Pacemaker or ICD? When Was Last Pacemaker Check QUESTION #4 FULL TEXT: You/Your Family Experience fever (hyperthermia) with Anesthesia Last Oral Intake Last Oral intake: Last Oral Intake NPO since Meds taken in AM with sips of water? Meds patient instructed to take am of surgery PONV PONV - sprayer hand: PONV - sprayer hand Female No 11/10/24 13:54 HX of Motion Sickness No 11/10/24 13:54 HX of N/V After Surgery No 11/10/24 13:54 Non-Smoker Yes 11/10/24 13:54 Duration of Surgery greater No 11/10/24 13:54 than 60 minutes Number of Risk Factors 1 11/10/24 13:54 PONV Score Low Risk 11/10/24 13:54 Height & Weight Height & Weight: Anesthesia: Height & Weight Height 5 ft 10 in 11/07/24 13:50 Respiratory Assessment Respiratory Assessment - sprayer hand: Respiratory Tract Infection Hx - sprayer hand Hx Respiratory Tract Infection No 11/10/24 13:54 STOP Sleep Apnea STOP Sleep Apnea - sprayer hand: STOP Sleep Apnea - sprayer hand Hx Hypertension Yes 11/10/24 13:54 Hx Sleep Apnea Yes 11/10/24 13:54 CPAP Yes 11/10/24 13:54 BIPAP No 11/10/24 13:54 Do you snore loudly (louder than talking or can be heard Do you often feel tired/ fatigued/ sleepy during daytime? Has anyone observed you stop breathing during sleep? STOP Results Positive 11/10/24 13:54 QUESTION #5 FULL TEXT : Do you snore loudly (louder than talking or can be heard through closeddoors)? 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 Specify any problems Hx of Preganancy in last 3 N/A 11/10/24 13:54 Months Nurse Filling Out Transfusion VLEHMAN 11/10/24 13:54 & Questions: Date: 11/10/24 11/10/24 13:54 Time: 14:03 11/10/24 13:54 Patient unable to answer at this time (ie. confused, unrespo /Reproduction History /Reproductive History - sprayer hand: /Reproductive Hx- sprayer hand Hx Now Gestational Age (in weeks): EDC: Hx Hx Para Hx Section SAB No 12/31/22 09:04 PFSH Medical History Wears hearing aid History of renal disease Anemia Sleep apnea Gallstones Wears glasses Wears dentures Cancer Low iron Restless legs Back pain Dietary restriction Non-smoker CPAP (continuous positive airway pressure) dependence Leg cramps History of pain when walking History of edema History of echocardiogram History of stress test Cardiology follow-up encounter Hx of undescended testicle Varicose veins of both lower extremities Elevated blood pressure reading in office with white coat syndrome, without diagnosis of hypertension Uncontrolled hypertension Wears hearing aid in both ears Cellulitis of left lower extremity without foot Nonobstructive atherosclerosis of coronary artery History of non-ST elevation myocardial infarction (NSTEMI) (11/26/20) Hyperlipidemia CKD (chronic kidney disease) Obesity Essential (primary) hypertension Testicular malignancy Nonrheumatic aortic (valve) stenosis Parkinsons disease Tremor, essential Gout Home Medications ?Medication ?Instructions ?Recorded ?Last Taken ?Type carbidopa 50 mg-levodopa 200 1 tab PO TID parkinsons 0 03/26/21 01/07/23 History mg-entacapone 200 mg tablet cholecalciferol (vitamin D3) 50 50 mcg PO DAILY 01/06/23 History mcg (2,000 unit) capsule carvedilol 25 mg tablet 25 mg PO BID 12/31/22 History amlodipine 10 mg tablet 10 mg PO QHS 01/06/23 History ascorbic acid (vitamin C) 500 mg 500 mg PO BID 5 Unknown History capsule carbidopa 25 mg-levodopa 100 mg 1 tab PO TID PRN TREMO RS 09/27/24 Unknown History tablet clonidine HCl 0.1 mg tablet 0.1 mg PO Q8H PRN hyperten sive 09/27/24 Unknown History emergency ferrous sulfate 325 mg (65 mg 325 mg PO BID 09/27/24 U nknown History iron) tablet hydralazine 50 mg tablet 50 mg PO Q6H 09/27/24 Unknow n History hydrochlorothiazide 12.5 mg tablet 12.5 mg PO QDAY Unknown History magnesium 250 mg tablet 250 mg PO BID 09/27/24 Unkno wn History mecobalamin (vitamin B12) 5,000 1,000 mcg PO QDAY 09/01 04/24 Unknown History mcg chewable tablet pramipexole 0.25 mg tablet 0.25 mg PO QHS restless leg s 09/27/24 Unknown History primidone 50 mg tablet 100 mg PO QAM 09/27/24 Unkno wn History primidone 50 mg tablet 150 mg PO QHS 09/27/24 Unkno wn History omeprazole 40 mg capsule,delayed 40 mg PO QDAY #30 cap s 11/03/24 Unknown Rx release Allergy/AdvReac Type Severity Reaction Status Date / Time clindamycin Allergy Swelling Verified 11/10/24 13:45 Sulfa (Sulfonamide Allergy Unknown, Verified 11/10/24 13:45 Antibiotics) A CHILD allopurinol AdvReac Intermediate Possible Verified 11/10/24 13:45 cause of rash on legs: went away after stopping simvastatin AdvReac myalgia Verified 11/10/24 13:45 Family History Father CAD (coronary artery disease) Sudden cardiac , Onset Age: 59 Myocardial infarction, Onset Age: 59 Hypertension Mother Heart disease Hypertension Brother Sudden cardiac , Onset Age: 68 Surgical History History of cardiac catheterization S/P hernia repair History of colonoscopy History of lymph node excision History of left heart catheterization (01/21/21) History of surgical removal of testicle History of tonsillectomy Social History household members: spouse current occupational status: retired Smoking Status: Never smoker alcohol intake: never substance use type: does not use caffeine: No what type of physical activity do you participate in: bicycling frequency: 1-2 times per week duration: 30-45 minutes/day seatbelt use: always do you feel safe at home: Yes Review of Systems (Anesthesia) ROS Narrative System reviewed and no additional complaints, except as documented. 11/11/24 1057 > Date _ Shade Roldan MD Cosigner Signature: Date CC: ~ Signed [facility]03-14-2025 [facility] Medical Records Department [address] [place] [address] History Physical Exam 11/11/24 1052 MR#: [id number] Acct: [id number] Name: CAROLYN ABBOTT Rep #: [id number] : 1950 73 From: Kathy Boss MD PCP: Dr. Razia Maya, DO Status:[facility] Location: [place] [address] History and Physical Date of Admission: 11/11/24 Date of Service: 11/07/24 MR#: [id number] Acct: [id number] Name: CAROLYN ABBOTT Rep #: [id number] : 1950 Provider: Dr. Kathy Boss MD Age/Sex: 73/M Location: [facility] Status: Signed Intake Vital Signs 09/27/2512:07 11/07/2512:50 Height 5 ft 10 in 5 ft 10 in Weight: 218 lb 215 lb 8 oz BMI 31.2 30.9 BP 111/75 Blood Pressure Location Rt brachial Position Sitting Respiration 18 Pulse 74 Pulse Source Monitor Temp 97.2 F L Temp Source Temporal Pulse Oximetry (%) 99 Oxygen Delivery Method room air Intake Visit Reasons: GALLBLADDER Chief Complaint: gallbladder Accompanied by: Is patient in pain?: No Allergies clindamycin Allergy (Verified 11/07/24 13:50) SwellingSulfa (Sulfonamide Antibiotics) Allergy (Verified 11/07/24 13:50) Unknown, A CHILDallopurinol Adverse Reaction (Intermediate, Verified 11/07/24 13:50) Possible cause of rash on legs: went away after stoppingsimvastatin Adverse Reaction (Verified 11/07/24 13:50) myalgia Medications ???Medication ???Instructions ???Recorded ???Confirmed ???Type carbidopa 50 mg-levodopa 200 1 tab PO TID parkinsons 03/26/21 11/07/24 History mg-entacapone 200 mg tablet cholecalciferol (vitamin D3) 50 50 mcg PO DAILY 11/05/21 03/10/25 History mcg (2,000 unit) capsule carvedilol 25 mg tablet 25 mg PO BID 12/31/22 11/07/24 History amlodipine 10 mg tablet 10 mg PO QHS 01/06/23 11/07/24 History ascorbic acid (vitamin C) 500 mg 1,500 mg PO QDAY 09/27/24 11/07/24 History capsule carbidopa 25 mg-levodopa 100 mg 1 tab PO TID PRN 09/27/24 11/07/24 History tablet clonidine HCl 0.1 mg tablet 0.1 mg PO Q4H PRN 09/27/24 11/07/24 History ferrous sulfate 325 mg (65 mg 325 mg PO BID 09/27/24 11/07/24 History iron) tablet hydralazine 50 mg tablet 50 mg PO BID 09/27/24 11/07/24 History hydrochlorothiazide 12.5 mg tablet 12.5 mg PO QDAY 09/27/24 11/07/24 History magnesium 250 mg tablet 250 mg PO DAILY 09/27/24 11/07/24 History mecobalamin (vitamin B12) 5,000 5,000 mcg PO QDAY 09/27/24 11/07/24 History mcg chewable tablet pramipexole 0.25 mg tablet 0.25 mg PO QHS restless legs 09/27/24 11/07/24 His tory primidone 50 mg tablet 100 mg PO QAM 09/27/24 11/07/24 History primidone 50 mg tablet 150 mg PO QHS 09/27/24 11/07/24 History omeprazole 40 mg capsule,delayed 40 mg PO QDAY #30 caps 11/03/24 11/07/24 Rx release Have you fallen in the past year?: No PFSH Medical History (Updated 11/09/24 @ 11:[address] Kathy Boss MD) Gallstones Wears glasses Wears dentures Cancer Low iron Restless legs Back pain Dietary restriction Non-smoker CPAP (continuous positive airway pressure) dependence Leg cramps History of pain when walking History of edema History of echocardiogram History of stress test Cardiology follow-up encounter Hx of undescended testicle Varicose veins of both lower extremities Elevated blood pressure reading in office with white coat syndrome, without diagnosis of hypertension Uncontrolled hypertension Wears hearing aid in both ears Cellulitis of left lower extremity without foot Nonobstructive atherosclerosis of coronary artery History of non-ST elevation myocardial infarction (NSTEMI) (11/26/20) Hyperlipidemia CKD (chronic kidney disease) Obesity Essential (primary) hypertension Testicular malignancy Nonrheumatic aortic (valve) stenosis Parkinsons disease Tremor, essential Gout Surgical History S/P hernia repair History of colonoscopy History of lymph node excision History of left heart catheterization (01/21/21) History of surgical removal of testicle History of tonsillectomy Family History Father CAD (coronary artery disease) Sudden cardiac , Onset Age: 59 Myocardial infarction, Onset Age: 59 HypertensionMother Heart disease HypertensionBrother Sudden cardiac , Onset Age: 68 Social History household members: spouse current occupational status: retired Smoking Status: Never smoker alcohol intake: never substance use type: does not use caffeine: No what type of p (more content not included)...[facility] 11-07-2024 Evaluation note* Diagnosis Onset Date Resolution Status Admit Date Gallstones acute November 07 1:27pm GERD (gastroesophageal reflu x disease) acute November 07, 2024 1:27pm [facility] Work Phone: 1(473) 270-864002-27-2025 Radiology Diagnostic study note [facility] Imaging Services [address], [place] [address] Abdomen Limited MR#: [id number] Acct: [id number] Name: CAROLYN ABBOTT Rep #: [id number] : 1950 M 73 From: Jerman Hameed MD PCP: Dr. 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 COMPARISON: None FINDINGS: Liver: Diffusely echogenic suggesting fatty infiltration. Gallbladder: Multiple echogenic gallstones are identified. Common bile duct: Normal measuring measures 3 mm.. Pancreas: Visualized portions are sonographically unremarkable. The right kidney is hypertrophic. It measures 17.2 cm x 10.9 cm x 9.8 cm. The cortex measures 1.8 cm. Multiple cysts are seen within it. The largest cyst measures 7.5 cm x 8.2 cm x 7.4 cm. US/Abdomen Limited IMPRESSION: Multiple gallstones. Fatty infiltration of the liver. Hypertrophy of the right kidney with multiple cysts within it. Reading Location: [id number] CC: LILIANA Ozuna; Dr. Razia Maya, DO ~ Application Security Specialist: Signed [facility]10-21-2024 Telephone encounter Note* Telephone Encounter - Sharlene Moran MA - 06/20/2024 11:01 AM EDT Prescription Refill Information The patient has been [...] Moran MA June 20, 2024 11:04 AM [facility]10-21-2024 Miscellaneous Notes* Telephone Encounter - Shalrene Moran MA - 06/20/2024 11:01 AM EDT Prescription Refill Information The patient has been [...] 20, 2024 11:04 AM documented in this encounterK[facility] Telephone encounter Note * Telephone Encounter - Sherice Basilio - 04/05/2024 2:14 PM EDT Patient returned the call and was given the message Please call patient let him know that his echocardiogram from 04/01/2024 shows heart strength is good. There is moderate mitral valve regurgitation and stenosis. Moderate aortic stenosis. We will continue to monitor. This is a stable echocardiogram Thank you very much Patient voiced understanding [facility]08-06-2024 Miscellaneous Notes* Telephone Encounter - Sherice Basilio - 04/05/2024 2:14 PM EDT Patient returned the call and was given the message Please call patient let him know that his echocardiogram from 04/01/2024 shows heart strength is good. There is moderate mitral valve regurgitation and stenosis. Moderate aortic stenosis. We will continue to monitor. This is a stable echocardiogram Thank you very much Patient voiced understanding * Telephone Encounter - Jonas Gan MA - 04/05/2024 1:59 PM EDT Left a voicemail for a return call back. Results ABS. * Telephone Encounter - Milena Herman APRN.CNP - 04/05/2024 1:42 PM EDT Please call patient let him know that his echocardiogram from 04/01/2024 shows heart strength is good. There is moderate mitral valve regurgitation and stenosis. Moderate aortic stenosis. We will continue to monitor. This is a stable echocardiogram Thank you very much documented in this encounterK[facility]08-[facility]-2024 Telephone encounter Note * Telephone Encounter - Jonas Gan MA - 04/05/2024 1:59 PM EDT Left a voicemail for a return call back. Results ABS. [facility]08-06-2024 Telephone encounter Note* Telephone Encounter - Milena Herman APRN.CNP - 04/05/2024 1:42 PM EDT Please call patient let him know that his echocardiogram from 04/01/2024 shows heart strength is good. There is moderate mitral valve regurgitation and stenosis. Moderate aortic stenosis. We will continue to monitor. This is a stable echocardiogram Thank you very much [facility]08-01-2024 Telephone encounter Note* Telephone Encounter - Imelda Morse - 03/31/2024 9:45 AM EDT LM for patient w/ date, time, & location of appt. [facility]08-01-2024 Miscellaneous Notes* Telephone Encounter - Imelda Morse - 03/31/2024 9:45 AM EDT LM for patient w/ date, time, & location of appt. documented in this encounterKet[facility]07-15-2024 History of Present illness Narrative* Milena Herman APRN.CNP - 03/14/2024 9:17 AM EDT Images from the original note were not included. [facility] Department of Cardiology Referring Provider: No ref. provider found Date: March 14, 2024 Chief Complaint: Diastolic heart failure Subjective: Carolyn Abbott is a 73 year old male who presents as an established patient for diastolic heartfailure assessment and management. Patient does state he has had some shortness of breath. He feelsthe shortness of breath is just ongoing. He has noticed some fatigue. Patient denies any headaches,dizziness, syncope or near syncopal episodes. Patient has had no chest pain, palpitations, PND, or o rthopnea. ALLERGIES Allergen Reactions Clindamycin Swelling Sulfa (Sulfonamide [...] a day. 100mg AM and 150mg PM xwgnvsgjs-mxhtmmty-marowhptsd (STALEVO 200) 50-200-200 mg per tablet Take [...] Pulse (!) 59 Ht 174 cm (5' 8.5) Wt 100.5 kg (221 lb 9 oz) BMI 33.20 kg/m PHYSICAL EXAMINATION: BP 122/80 (BP Site: Left Arm, BP Position: Sitting, BP Cuff Size: Large Adult) Pulse (!) 59 Ht 174 cm (5' 8.5) Wt 100.5 kg (221 lb 9 oz) [...] is intact. LABS: No results found for: GLUC, K, NA, CHLOR, CO2, CREAT, BUN, ANION, CA, TPROT, ALB, TBILI, ALKPHOS, AST, ALT No results found for: HB, HCT, WBC No results found for: CHOL, HDL, LDL, TG EKG: I have provided a picture of today's EKG for your convenience and easy access. please note theinterpretation on the EKG image is computer-generated and [...] Lifestyles Modifications included those recommended through the [place] [employer]. - The [place] [employer] 7 guidelines and recommendations for [...] transcribed by Jonas Gan MA. Milena Herman APRN.CNP This patient note was partially generated from using the [employer] voice recognition system. There maybe some incorrect words, spelling, and punctuation that were not noted in checking the note prior to saving documented in this encounterKet[facility]05-21-2024 History of Present illness Narrative* Ralph Noriega MD - 01/19/2024 9:30 AM EDT Images from the original note were not included. [facility] NEUROSCIENCE [address] [facility] [address] Dept: [phone] Dept Loc: [phone] Visit type: Established Patient Reason for Visit: [...] THE LEGS DAILYAS NEEDED, Disp: , Rfl: carvedilol (Coreg) 25 [...] TSH VITAMIN B12: No results found for: [id number] No results found for: PHENYTOIN, PHENOBARB, VALPROATE, CBMZ No components found for: TOPIRA @RESULTINGLABINFO@ No results found for: LEVETIRACETA, FERRITIN, CRP, MARTA, ANCA No results found for: JUAREZ, IMMUNOGLOBUL, OLIGOBANDS No results found for: [id number], HEPCAB No results found for: CRP, ANATITER, ANCA FERRITIN: No results found for: FERRITIN [...] fine with him using 25/100 immed release v5pzhmn prn with the 50/200 CR. Pramipexole at [...] and arranging for studies. documented in this encounterSThe Jewish HospitalZxkwzp05-71-1667 Miscellaneous Notes* Telephone Encounter - Milton Basilio DO - 10/30/2023 8:43 AM EST Cath in 2020 with trace cad The risk of mi is very low EKG is May was normal Can come in today for EKG since very low risk * Telephone Encounter - Jonas Gan MA - 10/28/2023 2:24 PM EST Please advise. Patient's called in stating the patient was at [facility] in [place] with left arm pain and his BP was extremely high. The patient's is wondering if he should come in and see you because of him having this left arm pain and this was the 2nd incident that this happened. documented in this encounterKet[facility]02-29-2024 History of Present illness Narrative* Ralph Noriega MD - 10/29/2023 10:00 AM EST Images from the original note were not included. [facility] NEUROSCIENCE [address] [facility] [address] [facility] [address] Dept: [phone] Dept Loc: [phone] Visit type: Established Patient Reason for Visit: Follow-up and Parkinson's Disease Assessment and Plan 1. Parkinson's disease with fluctuating manifestations, unspecified whether dyskinesia present 2. Essential tremor 3. Myalgia Subjective HPI: He reports that he is not noticing any improvement in the tremor since decreasing the carb-levo. Heis not having any improvement in walking either. [...] THE LEGS DAILYAS NEEDED, Disp: , Rfl: hydrALAZINE (Apresoline) 10 [...] TSH VITAMIN B12: No results found for: [id number] No results found for: PHENYTOIN, PHENOBARB, VALPROATE, CBMZ No components found for: TOPIRA @RESULTINGLABINFO@ No results found for: LEVETIRACETA, FERRITIN, CRP, MARTA, ANCA No results found for: JUAREZ, IMMUNOGLOBUL, OLIGOBANDS No results found for: [id number], HEPCAB No results found for: CRP, ANATITER, ANCA FERRITIN: No results found for: FERRITIN ---- No image results found. -[facility] [address] [place] [address], [address] Patient Name: CAROLYN ABBOTT : 1950 Sex: M Billing Number: [id number] Order ID: [id number] Patient Type: E Patient Location: [facility] Attending: CHAYO LEIJA Consulting: Admitting: Admit Date: [...] Quick Trend Testing Performed By: t: [facility], [address] [facility], [place], [place] [address] IMPRESSION and PLAN: Diagnosis Plan 1. Parkinson's [...] and arranging for studies. documented in this [facility]02-21-2024 History of Present illness Narrative* Day Hernandez, DO - 10/21/2023 9:34 AM EST Carolyn Abbott is a 72 year old [...] Cardiac Cath Chronic Diastolic Hf (Heart Failure) ([facility]) Current Outpatient Medications Medication Sig Dispense [...] Take 81 mg by mouth once daily. tygbuthnv-tkfpfdks-qosmrcehzh (STALEVO 200) 50-200-200 mg per tablet Take [...] unit) tab Take by mouth once daily. zpjatyph-qjddjcvlg-ctamedwrzilvmz (CORTISPORIN) 3.5-10,000-1 mg/mL-unit/mL-% otic suspension Use 4 [...] to normal size. Looking in the right earit he is very tender and there is [...] type - ICD9: 380.10, ICD10: H60.503 - FKIXWMPD-JKNYNDOXE-WEQFKXNWU 3.5 MG-10,000 UNIT/ML-1 % EAR DROPS,SUSP - AMOXICILLIN 875 MG TABLET Day Hernandez documented in this encounterKettering Health [facility] Center11-28-2023 History of Present illness Narrative* Ralph Noriega MD - 07/28/2023 9:30 AM EST Images from the original note were not included. [facility] [address] [facility] [address] Dept: [phone] Dept Loc: [phone] Visit type: Established Patient Reason for Visit: [...] seeing Dr. Giang. He is getting oxygen atnight. He is wearing CPAP. His clinical trial manager and kidney doctor said he looks good. [...] LEGS DAILYAS NEEDED, Disp: , Rfl: carbidopa-levodopa (Sinemet) 25-100 [...] vertical tremor in the hands with posture. Mildin the extended legs. He has head titubation [...] TSH VITAMIN B12: No results found for: [id number] No results found for: PHENYTOIN, PHENOBARB, VALPROATE, CBMZ No components found for: TOPIRA @RESULTINGLABINFO@ No results found for: LEVETIRACETA, FERRITIN, CRP, MARTA, ANCA No results found for: JUAREZ, IMMUNOGLOBUL, OLIGOBANDS No results found for: RQS75ID, HEPCAB No results found for: CRP, ANATITER, ANCA FERRITIN: No results found for: FERRITIN [...] and arranging for studies. documented in this encounterSThe Jewish HospitalMijvkr85-18-8080 Evaluation note* Diagnosis Hypertension, unspecified type- Primary Stage 3a [...] influencing health status documented in this encounter [facility]10-13-2023 History of Present illness Narrative* Milton Basilio [...] Take 81 mg by mouth once daily. guattwxvj-cdtuzzfg-xpndlaxzqg (STALEVO 200) 50-200-200 mg per tablet Take [...] Adult) Pulse 65 Ht 177.8 cm (5' 10) Wt 103.5 kg (228 lb 1.9 oz) BMI 32.73 kg/m PHYSICAL EXAMINATION: BP 138/90 (BP Site: Left Arm, BP Position: Sitting, BP Cuff Size: Regular Adult) Pulse 65 Ht 177.8 cm (5' 10) Wt 103.5 kg (228 lb 1.9 oz) [...] is intact. LABS: No results found for: GLUC, K, NA, CHLOR, CO2, CREAT, BUN, ANION, CA, TPROT, ALB, TBILI, ALKPHOS, AST, ALT No results found for: HB, HCT, WBC No results found for: CHOL, HDL, LDL, TG EKG: ASSESSMENT/PLAN: 1. Hypertension, unspecified type [...] last BW was 01/19/2019 and the LDL bux033. - Counseled on healthy diet and regular exercise 4. PATRICIO (obstructive sleep apnea) - ICD9: 327.23, ICD10: G47.33 Patient is faithful to CPAP. 5. Chronic diastolic congestive heart failure (HCC) - ICD9: 428.32, 428.0, ICD10: I50.32 Managed appropriately. Echo in 2017 demonstrates aortic sclerosis. Echocardiogram in 2021 demonstrated [...] -Cleared for surgery from a cardiac standpoint. IPriscila MA , scribing for Dr. Milton Basilio, was present in the room during the examination Follow up in: 9 months with Milena Herman APRN.TOOL CHECKER. Prior to entering the room, I reviewed [...] In a pictorial format; I described the FL and QRS intervals. This was to show [...] one hundred percent of my time in tgdy-wg-bjsz conversation with the patient. I answered all the questions and explained the diagnosis of preop clearance. Greater that 51% of my time was spent with bgve-qn-opnp conversation with the patient. I have discussed [...] record. Milton Basilio DO documented in this encounterKettering Health [facility] Center08-28-2023 Telephone encounter Note * Telephone Encounter - Terrie Cortez - 04/27/2023 5:46 PM EDT Message released to patient as written. Yes Patient's further questions if applicable: N/A Were all questions from office addressed or relayed to the patient from encounter: Yes [facility] [id number] Miscellaneous Notes* Telephone Encounter - Terrie Cortez - 04/27/2023 5:46 PM EDT Message released to patient as written. Yes Patient's further questions if applicable: N/A Were all questions from office addressed or relayed to the patient from encounter: Yes * Telephone Encounter - Sascha Baron LPN - 04/27/2023 4:59 PM EDT Call to patient. Moose on to call the office. Please inform patient, provider has sent 1 month supply to patient's local pharmacy. * Telephone Encounter - Sascha Baron LPN - 04/27/2023 9:24 AM EDT Patient was seen in office today. Patient stated will take a couple of weeks to receive medication from [facility] pharmacy. Patient is requesting to send a prescription for the Sinemet 25-100 mg to local pharmacy- [facility] pharmacy so patient will have medication while waiting for mail pharmacy to send to patient. documented in this encounterSThe Jewish HospitalNsjvia04-20-2439 Telephone encounter Note* Telephone Encounter - Sascha Baron LPN - 04/27/2023 4:59 PM EDT Call to patient. Moose on to call the office. Please inform patient, provider has sent 1 month supply to patient's local pharmacy. [facility] [id number] Telephone encounter Note* Telephone Encounter - Sascha Baron LPN - 04/27/2023 9:24 AM EDT Patient was seen in office today. Patient stated will take a couple of weeks to receive medication from [facility] mail pharmacy. Patient is requesting to send a prescription for the Sinemet 25-100 mg to local pharmacy- [facility] pharmacy so patient will have medication while waiting for mail pharmacy to send to patient. [facility] [id number] History of Present illness Narrative* Ralph Noriega MD - 04/27/2023 9:00 AM EDT Images from the original note were not included. [facility] NEUROSCIENCE [address] [facility] [address] Dept: [phone] Dept Loc: [phone] Visit type: Established Patient Reason for Visit: [...] TSH VITAMIN B12: No results found for: [id number] No results found for: PHENYTOIN, PHENOBARB, VALPROATE, CBMZ No components found for: TOPIRA @RESULTINGLABINFO@ No results found for: LEVETIRACETA, FERRITIN, CRP, MARTA, ANCA No results found for: JUAREZ, IMMUNOGLOBUL, OLIGOBANDS No results found for: [id number], HEPCAB No results found for: CRP, ANATITER, [...] and arranging for studies. documented in this [facility]07-14-2023 History of Present illness Narrative* Ralph Noriega MD - 03/13/2023 2:30 PM EDT Images from the original note were not included. [facility]UR[facility]ENCE [address] [facility] [address] Dept: [phone] Dept Loc: [phone] Visit type: Established Patient Reason for Visit: [...] times daily., Disp: 360 tablet, Rfl: 1 flzvugold-nytjjoil-lrkrpopgrf (Stalevo) 50-200-200 MG tablet, Take 1 tablet [...] TSH VITAMIN B12: No results found for: [id number] No results found for: PHENYTOIN, PHENOBARB, VALPROATE, CBMZ No components found for: TOPIRA @RESULTINGLABINFO@ No results found for: LEVETIRACETA, FERRITIN, CRP, MARTA, ANCA No results found for: JUAREZ, IMMUNOGLOBUL, OLIGOBANDS No results found for: HGX71FL, HEPCAB No results found for: CRP, ANATITER, ANCA, ANCA FERRITIN: No results found for: FERRITIN ---- No image results found. IMPRESSION and PLAN: Diagnosis Plan 1. Parkinson disease (HCC) 2. Essential tremor He is to only take pramipexole at night before bed. He is to stop Stalevo (nxby-whqw-tadsanqjnc) and go to carb-levo CR 50/200 po [...] arranging for studies. @SIGNATURE@ documented in this [facility]05-10-[address] Boss [facility] January 07, 2023 12:41pm Note Date/Time January 07, 2023 12:38 pm [facility] Medical Records Department [address] [place] [address] Instructions for Home/Discharge Instructions 01/07/23 1237 MR#: [id number] Acct: [id number] Name: CAROLYN ABBOTT Rep #:[id number] : 1950 72 From: Kathy Boss MD PCP: Dr. Razia Maya, DO Status:REG SDC Discharge Instructions Diet Discharge Diet: Light diet - advance as tolerated Activity May shower in (days): 5 (Keep umbilical dressing clean dry and intact for 5 days. Okay to tape off with a Ziploc bag to shower. Or lower shower and upper sponge bath.) Lifting Restrictions: no lifting >20 lbs x 2 wks, no strenuous exercise for 4 wks Additional Activity Instructions:: - Dressing / Incision Call your doctor if your incision/area has: Continuous Slow Oozing, Sudden Increased Bleeding, Increased Pain/ Swelling, Increased Redness, Foul Smelling Discharge and Swelling at the incision site Call your doctor if you observe: Fever of 101 or Higher Remove Dressing in: 5 days (After 5 days okay to remove surgical dressing. Place cotton ball or rolled up gauze in bellybutton and retape daily for 2 more days.) Cleanse incision/area with: Do not get Incision Wet (for 5 days) Additional Dressing/Incision Instructions:: Steri-Strips will fall off in 7 to 10 days, if they do not fall off okay to remove after 10 days. Follow Up Care Please Follow Up With: Kathy Boss MD When: Call the office for a follow-up appointment 2 weeks; after 5 PM and on [facility] [place] [phone] with any concerns. Test Results: Test results from this visit will be discussed in further detail at your follow- up appointment, if applicable. Discharge Plan Admission Attending Provider: Kathy Boss Primary Care Provider: Razia Maya Discharge Orders/Prescriptions Prescriptions: New hydrocodone-acetaminophen 5-325 mg tablet 1 - 2 tab PO Q6H PRN (Reason: pain) 3 Days Qty: 10 0RF Continued pramipexole 0.25 mg tablet 0.25 mg PO TID primidone 50 mg tablet 100 mg PO BID tizanidine 2 mg capsule 2 mg PO TID PRN (Reason: BACK/LEG PAIN) cholecalciferol (vitamin D3) 50 mcg (2,000 unit) capsule 50 mcg PO DAILY ascorbic acid (vitamin C) 500 mg capsule 500 mg PO TID magnesium 250 mg tablet 500 mg PO DAILY hydralazine 50 mg tablet 100 mg PO TID sbqgiarec-whbgmjrm-btbofvkcfj 50-200-200 mg tablet 1 tab PO TID Label Comments: TAKE 1 TABLET BY MOUTH THREE TIMES DAILY triamcinolone acetonide 0.5 % cream 1 applic topical PRN PRN (Reason: CELLULITIS) Rx Instructions: Apply twice a day to affected left leg area doxazosin 2 mg Tablet 1 mg PO QHS hydrochlorothiazide 12.5 mg Tablet 12.5 mg PO QODAY levocetirizine 5 mg Tablet 5 mg PO QPM carvedilol 25 mg tablet 25 mg PO BID Slow Fe 142 mg (45 mg iron) Tablet Extended Release 142 mg PO DAILY amlodipine 10 mg tablet 10 mg PO QHS Held aspirin [Adult Aspirin Regimen] 81 mg tablet,delayed release (DR/EC) 81 mg PO DAILY Hold Instructions: Resume on 01/09/23. Referrals / Follow Up: Razia Maya DO [Primary Care Provider] - Disposition Disposition (needs filled in before D/C Order can be placed): Home, Self Care 01/07/23 1241<Electronically signed by Kathy Boss MD>Kathy Boss MD CC: Dr. Razia Maya, ~ Signed [facility] Work Phone: [phone]) 618-135705-10-2023 Procedure [facility] 01-07-2023 History and physical note Author Dr. Boss [facility] January 07, 2023 10:40am Note Date/Time January 07, 2023 10:27 am [facility] Medical Records Department [address] [place] [address] H&P Exam - Surgical 01/07/23 1021 MR#: [id number] Acct: [id number] Name: CAROLYN ABBOTT Rep #:[id number] : 1950 72 From: Kathy Boss MD PCP: Dr. Razia Maya DO Status:[facility] Location: [place] [address] HPI - General General Date of Admission: 01/07/23 HPI Narrative CAROLYN ABBOTT, is a 72 M who presents for incisional hernia repair with mesh at his umbilicus. Patient denies pain at the site however is continued to get larger over time. Patient did have a CT abdomen pelvis when he went to the ER which showed decrease musculature of the right side of the abdomen likely due todenervation to the muscle due to his previous right abdominal surgery for lymph node dissection. office visit 11/11/22 HPI HPI: 71-year-old male presents due to umbilical hernia.? Patient states she has had this for a long time however he states it has gotten bigger over time and thinksit is time for her to get it repaired.? Patient denies any pain.? Patient did have testicular cancer which involved a lymph node dissection including right abdominal approach to the retroperitoneum in 1980s. [facility] Medical History Back pain Cancer Cardiology follow-up encounter Cellulitis of left lower extremity without foot CKD (chronic kidney disease) CPAP (continuous positive airway pressure) dependence Dietary restriction Elevated blood pressure reading in office with white coat syndrome, without diagnosis of hypertension Essential (primary) hypertension Gout History of echocardiogram History of edema History of non-ST elevation myocardial infarction (NSTEMI) (11/26/20) History of pain when walking History of stress test Hx of undescended testicle Hyperlipidemia Leg cramps Low iron Non-smoker Nonobstructive atherosclerosis of coronary artery Nonrheumatic aortic (valve) stenosis Obesity Parkinsons disease Restless legs Testicular malignancy Tremor, essential Uncontrolled hypertension Varicose veins of both lower extremities Wears dentures Wears glasses Wears hearing aid in both ears Home Medications pramipexole 0.25 mg tablet 0.25 mg PO TID restless legs 01/01/18 [History Last Taken 04/01/21] primidone 50 mg tablet 100 mg PO BID seizures 11/21/20 [History Last Taken 04/01/21] tizanidine 2 mg capsule 2 mg PO TID PRN BACK/LEG PAIN 11/21/20 [History Last Taken Unknown] carbidopa 50 mg-levodopa 200 mg-entacapone 200 mg tablet 1 tab PO TID /27/21 [History Last Taken 04/01/21] triamcinolone acetonide 0.5 % topical cream 1 applic topical PRN PRN CELLULITIS 04/01/21 [History Last Taken 04/01/21] cholecalciferol (vitamin D3) 50 mcg (2,000 unit) capsule 50 mcg PO DAILY 07/05/21 [History Last Taken Unknown] ascorbic acid (vitamin C) 500 mg capsule 500 mg PO TID 05/15/22 [History Last Taken Unknown] aspirin 81 mg tablet,delayed release (Adult Aspirin Regimen) 81 mg PO DAILY 05/15/22 [History Last Taken 12/31/22] magnesium 250 mg tablet 500 mg PO DAILY 05/15/22 [History Last Taken Unknown] hydralazine 50 mg tablet 100 mg PO TID 11/11/22 [History Last Taken Unknown] carvedilol 25 mg tablet 25 mg PO BID 12/31/22 [History Last Taken Unknown] doxazosin 2 mg tablet 1 mg PO QHS 12/31/22 [History Last Taken Unknown] ferrous sulfate 142 mg (45 mg iron) tablet,extended release (Slow Fe) 142 mg PO DAILY 12/31/22 [History Last Taken Unknown] hydrochlorothiazide 12.5 mg tablet 12.5 mg PO QODAY 12/31/22 [History Last Taken Unknown] levocetirizine 5 mg tablet 5 mg PO QPM 12/31/22 [History Last Taken Unknown] amlodipine 10 mg tablet 10 mg PO QHS 01/06/23 [History Last Taken Unknown] Allergy/AdvReac Type Severity Reaction Status Date / Time clindamycin Allergy Swelling Verified 01/07/23 10:27 Sulfa (Sulfonamide Allergy Unknown Verified 01/07/23 10:27 Antibiotics) allopurinol AdvReac Intermediate Possible Verified 01/07/23 10:27 cause of rash on legs: went away after stopping simvastatin AdvReac myalgia Verified 01/07/23 10:27 Family History Father CAD (coronary artery disease) Sudden cardiac , Onset Age: 59 Myocardial infarction, Onset Age: 59 Hypertension Mother Heart disease Hypertension Brother Sudden cardiac , Onset Age: 68 Surgical History History of colonoscopy History of left heart catheterization (01/21/21) History of lymph node excision History of surgical removal of testicle History of tonsillectomy Social History Smoking Status: Never smoker alcohol intake: never substance use type: does not use caffeine: No what type of physical activity do you participate in: bicycling frequency: 1-2 times per week duration: 30-45 minutes/day seatbelt use: always do you feel safe at home: Yes Physical Exam Const alert, oriented x3 and no apparent distress HEENT normocephalic and head/scalp atraumatic Resp normal respiratory effort Cardio regular rate GI soft to palpation and non-tender; Negative for non-distended GI Narrative: Patient does have a large vertical incision along his flank as well as horizontal at the epigastric from his lymph node dissection in the 80s due to testicular cancer.? Patient appears to have a loss of domain on the right side of his abdomen due to the previous surgery as he has protrusion of that side with sitting up. Palpation: hernia umbilical (3 cm-reducible); Negative for guarding Extremity no clubbing, cyanosis or edema Neuro CN's II-XII intact bilaterally Psych mental status grossly normal Assessment & Plan Assessment/Plan (1) Umbilical hernia without mention of obstruction or gangrene: (2) Incisional hernia: PLAN: Plan Discussed with patient would do an open/laparoscopic repair of his umbilical hernia due to the loss of domain on the right due to denervation of the muscle after his surgery in the . Risk would include but not limited to bleeding,infection, recurrence, injury to another organ and anesthesia. Patient and his had no further question this time. Kathy Boss M.D. Pager: [phone] [facility] [address] [place] [address], [facility], [address] [place] [address] Office: [phone] 01/07/23 1040 <Electronically signed by Kathy Boss MD> Cosigner Signature (if applicable): CC: Dr. Razia Maya, DO; Dr. Kathy Boss MD~ Signed [facility] Work Phone: [phone]) 582-183804-13-2023 NoteHNO ID: [id number] Author: Milena Herman APRN.TOOL CHECKER Service: ? Author Type: Nurse Practitioner Type: Progress Notes Filed: 12/11/2022 1:50 PM Note Text: [facility] Department of Cardiology Referring Provider: No ref. [...] med change. Chronic diastolic HF (heart failure) ([facility]) Chronic kidney disease, stage 3a ([facility]) DDD (degenerative disc disease), lumbar Dyslipidemia Elevated [...] Take 81 mg by mouth once daily. okqdlignz-brkkwfkc-wylilgmfse (STALEVO 200) 50-200-200 mg per tablet Take 1 tablet by mouth three times daily. cloNIDine TTS (CATAPRES-TTS) 0.1 mg/24 hr once daily as needed. hydrALAZINE (APRESOLINE) 100 mg tablet Take 100 mg by mouth three times daily. MAGNE (more content not included)...[facility]03-16-2023 NoteHNO ID: [id number] Author: Milena Herman APRN.TOOL CHECKER Service: ? Author Type: Nurse Practitioner Type: Progress Notes Filed: 11/14/2022 9:19 AM Note Text: [facility] Department of Cardiology Referring Provider: No ref. [...] med change. Chronic diastolic HF (heart failure) ([facility]) Chronic kidney disease, stage 3a ([facility]) DDD (degenerative disc disease), lumbar Dyslipidemia Elevated [...] tags PATRICIO (obstructive sleep apnea) Parkinson's disease ([facility]) 2017 Polycystic kidney disease Polyneuropathy lower extremities, [...] Take 81 mg by mouth once daily. rioufjbcl-oghenmmq-mhjgvbnrpa (STALEVO 200) 50-200-200 mg per tablet Take [...] mcg (2,000 unit) tab (more content not included)...[facility]02-27-2023 History of Present illness Narrative* Ralph Noriega MD - 10/27/2022 9:00 AM EST Images from the original note were not included. [facility] [address] [facility] [address] Dept: [phone] Dept Loc: [phone] Visit type: Established Patient Reason for Visit: Follow-up (Parkinson's /tremors) Assessment and Plan 1. Parkinson disease (HCC) - ihmngrjbj-kohzukzl-xyzwyqojcp (Stalevo) 50-200-200 MG tablet; Take 1 tablet by mouth 3 times daily., Starting 10/27/2022, Until 01/25/2023, Normal - pramipexole (Mirapex) 0.25 MG tablet; Take 1 tablet (0.25 mg) by mouth 3 times daily., Starting 10/27/2022, Until 01/25/2023, Normal 2. Essential tremor - primidone (Mysoline) 50 MG tablet; Take 2 tablets (100 mg) by mouth 2 times daily., Starting 10/27/2022, Until 01/25/2023, Normal 3. Lumbar radiculopathy, right 4. Hypertension, unspecified type 5. Generalized pruritus - levocetirizine (Xyzal) 5 MG tablet; Take 1 tablet (5 mg) by mouth every evening., Starting 10/27/2022, Until 01/25/2023, Normal Subjective HPI: The patient reports that he has not had lumbar spine surgery because of his high blood pressure. Hereports that the HTN was associated with his high kidney function. He reports that he has all over itching in the back, shoulders and belly and sometimes his legs. Ice Cream Man gave him a rash cream with mixed results. We discussed options for prevention of itching. He is still having the lower back pain. No falls or dysphagia. Tremor is stable. REVIEW OF SYSTEMS: Review of Systems Constitutional: [...] allergies and immunocompromised state. Neurological: Positive for headaches. Negative for syncope, weakness and light-headedness. Hematological: Negative for adenopathy. Does not bruise/bleed easily. Psychiatric/Behavioral: Negative for agitation, behavioral problems, confusion, decreased concentration, sleep disturbance and suicidal ideas. Answers submitted by the patient for this visit: Neurological Problem Questionnaire (Submitted on 10/20/2022) Chief Complaint: Neurologic complaint altered mental status: No clumsiness: No focal sensory loss: No focal weakness: No loss of balance: No memory loss: No near-syncope: No slurred speech: No visual change: No Chronicity: chronic Onset: more than 1 year ago Onset quality: gradually Progression since onset: gradually worsening Focality: upper extremity auditory change: No aura: No bladder incontinence: No bowel incontinence: No vertigo: No Treatments tried: acetaminophen, bed rest Improvement on treatment: moderate Allergies Allergen Reactions Clindamycin Propranolol Leg edema Sulfa Antibiotics Current Outpatient Medications: amLODIPine (Norvasc) 10 MG tablet, , Disp: , Rfl: aspirin 81 MG EC tablet, , Disp: , Rfl: betamethasone, augmented, (Diprolene AF) 0.05 % cream, APPLY TO THE AREAS OF RASH ON THE LEGS DAILYAS NEEDED, Disp: , Rfl: carbidopa-levodopa CR (Sinemet CR) 50-200 MG ER tablet, Dose = 1 tab(s), Oral, q8h, # 90 tab(s), 0 Refill(s), Disp: , Rfl: carvedilol (Coreg) 25 MG tablet, TAKE 1 & 1/2 (ONE & ONE-HALF) TABLETS BY MOUTH TWICE DAILY, Disp: , Rfl: cholecalciferol (Vitamin D-3) 50 MCG (2000 UT) capsule, Take by mouth., Disp: , Rfl: hydrALAZINE (Apresoline) 10 MG tablet, Take 10 mg by mouth in the morning and 10 mg at noon and 10 mg before bedtime., Disp: , Rfl: magnesium gluconate 250 MG tablet, 250 mg., Disp: , Rfl: metaxalone (Skelaxin) 800 MG tablet, TAKE 1 TABLET BY MOUTH EVERY 8 HOURS NEEDED (TIGHTNESS, SPASMS IN LEGS), Disp: , Rfl: pramipexole (Mirapex) 0.25 MG tablet, , Disp: , Rfl: zszizcwlz-drmxcoul-hkrjfffuon (Stalevo) 50-200-200 MG tablet, Take 1 tablet by mouth 3 times daily., Disp: 270 tablet, Rfl: 2 levocetirizine (Xyzal) 5 MG tablet, Take 1 tablet (5 mg) by mouth every evening., Disp: 90 tablet, Rfl: 1 losartan (Cozaar) 50 MG tablet, Take by mouth., Disp: , Rfl: pramipexole (Mirapex) 0.25 MG tablet, Take 1 tablet (0.25 mg) by mouth in the morning and 1 tablet (0.25 mg) at noon and 1 tablet (0.25 mg) before bedtime., Disp: 270 tablet, Rfl: 1 pramipexole (Mirapex) 0.25 MG tablet, Take 1 tablet (0.25 mg) by mouth 3 times daily., Disp: 270 tablet, Rfl: 2 primidone (Mysoline) 50 MG tablet, Take 2 tablets (100 mg) by mouth 2 times daily., Disp: 360 tablet, Rfl: 1 Past Medical History: Diagnosis Date Back pain Cancer (CMS/HCC) (HCC) Hypertension Lumbar stenosis Testicular cancer (CMS/HCC) (HCC) Testicular carcinoma, right (HCC) Social History Tobacco Use Smoking status: Never Smokeless tobacco: Never Substance Use Topics Alcohol use: Never Past Surgical History: Procedure Laterality Date OTHER SURGICAL HISTORY back injections TONSILLECTOMY (HISTORICAL) TUMOR REMOVAL No family history on file. Objective Vitals: BP (!) 176/73 (BP Location: Left arm, Patient Position: Sitting, BP Cuff Size: Large adult) Pulse57 Ht 5' 8.5 (1.74 m) Wt 238 lb 6.4 oz (108 kg) BMI 35.72 kg/m General Appearance: Patient is in no [...] X, XI, XII examined and were intact. Prominent head titubation , no jaw tremor Motor: Strength: Strength 5 out of 5 with normal tone Alternating Movements: Slowing Cogwheel Rigidity: None Tone: Tone is normal Tremor / Involuntary Movements: Old pustural and the newer left>right torsional Deep Tendon Reflexes: 1 out of 4 symmetrical in all four limbs. Coordination: Normal coordination upper and lower extremities Gait and Station: Station is normal. Gait is nearly normal Data Reviewed and Summarized DIAGNOSTIC TESTING CBC: [...] TSH VITAMIN B12: No results found for: GEBUKSTT23 No results found for: PHENYTOIN, PHENOBARB, VALPROATE, CBMZ No components found for: TOPIRA @RESULTINGLABINFO@ No results found for: LEVETIRACETA, FERRITIN, CRP, MARTA, ANCA No results found for: JUAREZ, IMMUNOGLOBUL, OLIGOBANDS No results found for: WNY10QG, HEPCAB No results found for: CRP, ANATITER, ANCA, ANCA FERRITIN: No results found for: FERRITIN ---- No image results found. IMPRESSION and PLAN: Diagnosis Plan 1. Parkinson disease (HCC) yhociafnj-zifpnbky-iviibekwpw (Stalevo) 50-200-200 MG tablet pramipexole (Mirapex) 0.25 MG tablet 2. Essential tremor primidone (Mysoline) 50 MG tablet 3. Lumbar radiculopathy, right 4. Hypertension, unspecified type 5. Generalized pruritus levocetirizine (Xyzal) 5 MG tablet He is to continue the Stalevo and pramipexole. The patient had ET originally, and needs to remain on primidone. ET causes the head tremor. He is to follow up with Dr. Rodriguez. As per Dr. Guerra. NEW ISSUE. Xyzal for this issue. No problem-specific Assessment & Plan notes found for this encounter. RALPH NORIEGA MD I spent 30 minutes caring for this patient today, reviewing labs, records, seeing the patient, documenting in the record and arranging for studies. documented in this [facility]02-16-2023 NoteHNO ID: [id number] Author: Milena Herman APRN.TOOL CHECKER Service: ? Author Type: Nurse Practitioner Type: Progress Notes Filed: 10/17/2022 12:40 PM Note Text: [facility] Department of Cardiology Referring Provider: No ref. [...] Take 81 mg by mouth once daily. hnqneyxtv-hxmuwtar-zjuzpfvdyj (STALEVO 200) 50-200-200 mg per tablet Take [...] daily. ascorbic acid, vitami (more content not included)...[facility] 10-16-2022 History of Present illness Narrative* Milena Herman APRN.TOOL CHECKER - 10/16/2022 12:50 PM EST [facility] Department of Cardiology Referring Provider: No ref. [...] Take 81 mg by mouth once daily. dzcmbtgxg-zefblgsy-nmbzutmitg (STALEVO 200) 50-200-200 mg per tablet Take [...] Adult) Pulse 64 Ht 174 cm (5' 8.5) Wt 108.4 kg (239 lb) BMI 35.81 kg/m PHYSICAL EXAMINATION: BP 140/92 (BP Site: Left Arm, BP Position: Sitting, BP Cuff Size: Large Adult) Pulse 64 Ht 174 cm (5' 8.5) Wt 108.4 kg (239 lb) BMI 35.81 [...] note was partially generated from using the VoiceObjects voice recognition system. There maybe some incorrect words, spelling, and punctuation that were not noted in checking the note prior to saving [facility] Telephone encounter Note * Telephone Encounter - Rlaph Noriega MD - 10/06/2022 1:25 PM EST Refill sent [id number] Miscellaneous Notes* Telephone Encounter - Ralph Noriega MD - 10/06/2022 1:25 PM EST Refill sent * Telephone Encounter - Elena Pearce - 10/06/2022 9:19 AM EST Medication name: primidone (Mysoline) Medication dosage: 50 mg (Miligrams Monthly quantity needed: 90 How many day supply requestin days Medication route: oral (PO) Medication administration time(s): 3 times a day (TID)Take 1 tablet by mouth in the morning and 1 tablet at noon and 1 tablet at bedtime If taking medication PRN, reason for taking medication: N/A If this is a controlled substance do you receive this or any other controlled medication from any other doctor or facility: N/A Ordering provider: Dr. Noriega Date of last office visit: 07/18/2022 Date of next office visit: 10/27/2022 Date of last refill: (see medication tab): 07/18/2022 Updated/Validated [facility] Step[facility] [3599] Patient instructed to contact the pharmacy prior to picking up the medication: Yes documented in this [facility]02-06-2023 Telephone encounter Note* Telephone Encounter - Elena Pearce - 10/06/2022 9:19 AM EST Medication name: primidone (Mysoline) Medication dosage: 50 mg (Miligrams Monthly quantity needed: 90 How many day supply requestin days Medication route: oral (PO) Medication administration time(s): 3 times a day (TID)Take 1 tablet by mouth in the morning and 1 tablet at noon and 1 tablet at bedtime If taking medication PRN, reason for taking medication: N/A If this is a controlled substance do you receive this or any other controlled medication from any other doctor or facility: N/A Ordering provider: Dr. Noriega Date of last office visit: 07/18/2022 Date of next office visit: 10/27/2022 Date of last refill: (see medication tab): 07/18/2022 Updated/Validated preferred pharmacy: Yes [facility] StepOut [2342] Patient instructed to contact the pharmacy prior to picking up the medication: Yes [id number] Hospital Discharge instructions Patient Education 05/27/2022 18:45:01 [...] pressure should be below 120/80. The first (top) number is called the systolic pressure. It is a measure of the pressure in your arteries as your heart beats. The second (bottom) number is called the diastolic pressure. It [...] care provider. This is important. Medicines Take vwju-tkv-cureuog and prescription medicines only as told by [...] 08/17/2006 Document Revised: 04/27/2019 Document Reviewed: 04/27/2019 [email or web address] Patient Education 2020 [employer]. Follow Up Care 05/24/2022 13:54:41 With:RAZIA MAYA DO Address: [address] [place] [address]- When:5 to 7 days Comments:Follow-up with primary care physician as an outpatient. You will need your kidney numbers recheckedand your blood pressure rechecked to determine further adjustments to your medications. Call to make an appointment. With:ADELINA GUERRA DO Address: [address] [facility] [place] [address]- When:Within 2 Week(s) Comments:Follow-up with nephrology if needed. Discuss with your primary care physician after repeat labs. With:PRABHU GREWAL MD Address: [address] [facility] [address] [facility] [place] [address] [phone] When:Within 2 Week(s) Comments:Follow-up with your clinical trial manager or cardiology at [facility] as an outpatient. Call to make an appointment. [facility] 09-27-2022 Note Discharge Instructions Thank you for allowing [facility] to assist you with your healthcare needs. [...] Call to make an appointment. Where: [address] [place] [address]- Follow Up with ADELINA GUERRA DO When In 2 weeks Why: Follow-up with nephrology if needed. Discuss with your primary care physician after repeat labs. Where: [address] [facility] [place] [place] [address]- Follow Up with PRABHU GREWAL MD When In 2 weeks Why: Follow-up with your clinical trial manager or cardiology at [facility] as an outpatient. Call to make an appointment. Where: [address] [facility] [address] [facility] [place] [address]- [phone] The Following Activity and Diet Have Been [...] pressure should be below 120/80. The first (top) number is called the systolic pressure. It is a measure of the pressure in your arteries as your heart beats. The second (bottom) number is called the diastolic pressure. It [...] care provider. This is important. Medicines Take omoo-qff-afgqfaz and prescription medicines only as told by [...] 08/17/2006 Document Revised: 04/27/2019 Document Reviewed: 04/27/2019 [email or web address] Patient Education 2020 [email or web address] Additional Information VACCINATE! IT SAVES LIVES! Members of the community who have not yet received the COVID-19 vaccine and would like to receive it can visit one of [facility] vaccine clinics. There are many vaccine clinic locations within the [facility]. For locations and available times, please visit [email or web address] It is important to note that some COVID mobile vaccine clinics are held outdoors and may be canceled in rainy or stormy conditions. To learn more about pediatric vaccinations (ages 5-11), we invite you to visit the [facility] webpage. [email or web address]/[email or web address]-Jmwln-Vuc stions.htmlTo learn more about the COVID-19 vaccine, we invite you to visit the [facility] website for a list of frequently asked questions. [email or web address]-[email or web address]/[email or web address]-Ndfamvjpla _Asked-Questions.pdf [facility] Patient Portal Access Instructions: Stay connected with your healthcare team and access your personal medical information anytime with the [facility].If you would like a full copy of your medical records, please contact the [facility] Medical Records Department, Thursday through Thursday between 8a.m. and 4:30p.m. Please follow the directions below to access the portal: 1.Access the email account you provided upon registration to the hospital.2.Look for an invitation email from [facility].3.Open the email and access the invitation link: Accept Invitation to [facility]4.Fill in the required white to create your account. Sign into [email or web address] with your username and password that you [...] you will allow to register on the [facility] Patient Portal for access to your information. You can also access the [employer] Patient Portal on the [employer]. Simply click on Health Records under [employer] and then click on the [employer] logo. HOW TO SAFELY DISPOSE OF PRESCRIPTION [...] Call your local pharmacy or go to [email or web address].lemonade.[email or web address]/5U8Yg2h to find one close to you.3.Make use of household items: Use cat litter or old coffee grounds to dispose medications if other options arenot available. Mix your drugs with these household products, seal them in an airtight container andthrow it into the garbage. Call [facility]: [phone] to be sure your drugs can be [...] aware that I should contact my doctor. Patient/Broadcaster Signature: Date/Time: Relationship to Patient: Witness Name/Signature: Date/Time: [facility] [id number] Discharge summary Date of Service May 27, [...] Patient did also request referral to local clinical trial manager as his clinical trial manager currentlyis quite a distance from him. Patient [...] Call to make an appointment. Where: [address] [place] [address]- Follow Up with ADELINA GUERRA DO When In 2 weeks Why: Follow-up with nephrology if needed. Discuss with your primary care physician after repeat labs. Where: [address] [facility] [place] [place] [address]- Follow Up with PRABHU GREWAL MD When In 2 weeks Why: Follow-up with your clinical trial manager or cardiology at [facility] as an outpatient. Call to make an appointment. Where: [address] [facility] [facility] [place] [address]- [id number] Follow Up Labs/Studies Discharge Labs Discharge Outpatient [...] LESTER CLIFFORD MD on 05/27/2022 09:44 PM [id number] Note Date of Service 05/26/2022 Chief Complaint Elevated blood pressure Subjective 71-year-old male who has past medical history of hypertension, peripheral vascular disease, Parkinson's, obesity, spinal stenosis. The patient also states that he has always had abnormal kidney numbers but these have been stable over the years. He follows up with a clinical trial manager for what seems to be blood pressure control, patient states that he had recent stress test and heart cath which did not show any significant coronary artery disease. His blood pressure medications was adjusted recently with addition of chlorthalidone because his clinical trial manager wants his blood pressure to be 130/80 mmHg. The patient presented to the [facility] on 05/24[facility]2022 with hypertensive emergency. He initially [...] (Oral) HR: 63(Monitored) RR: 22 BP: 162/85 SpO2:92% Intake and Output 7AM Yesterday to 7AM [...] ASHLY ERNANDEZ MD on 05/26/2022 11:26 AM [id number] Note ORIGINAL EXAMINATION: ONE XRAY VIEW OF [...] Sign Date: 05/25/2022 9:19:02 PM Ordering Provider: MARGI [facility]09-25-2022 History and physical note Chief Complaint Patient states headache with elevated blood pressure since noon today. States one episode of vomiting this afternoon. History of Present Illness 71-year-old male presenting to [place] [facility] with chief complaint of headache. He [...] with hismedications. Last time he saw his clinical trial manager was last week in [place] where they added chlorthalidone as part of [...] RHYTHM...normal P axis, V-rate 50- 99 PROLONGED FL INTERVAL...FL >220, V-rate 50- 90 BORDERLINE ECG Electronic [...] PENNY MARQUEZ MD on 05/24/2022 11:51 PM [id number] Note ORIGINAL EXAMINATION: ONE XRAY VIEW OF [...] 05/25/2022 9:19:02 PM Ordering Provider: [facility]09-24-2022 History and physical note Chief Complaint Patient states headache with elevated blood pressure since noon today. States one episode of vomiting this afternoon. History of Present Illness 71-year-old male presenting to [place] [facility] with chief complaint of headache. He [...] with hismedications. Last time he saw his clinical trial manager was last week in [place] where they added chlorthalidone as part of [...] RHYTHM...normal P axis, V-rate 50- 99 PROLONGED FL INTERVAL...FL >220, V-rate 50- 90 BORDERLINE ECG Electronic [...] PENNY MARQUEZ MD on 05/24/2022 11:51 PM [id number] Note ORIGINAL EXAMINATION: ONE XRAY VIEW OF [...] Sign Date: 05/24/2022 4:02:53 PM Ordering Provider: ALMA LOPEZ [id number] Note ORIGINAL EXAMINATION: ONE XRAY VIEW OF [...] Sign Date: 05/24/2022 4:02:53 PM Ordering Provider: [facility]09-24-2022 Note ORIGINAL EXAMINATION: CT OF THE [...] Sign Date: 05/24/2022 2:37:50 PM Ordering Provider: [facility]09-24-2022 Note ORIGINAL EXAMINATION: CT OF [...] Sign Date: 05/24/2022 2:37:50 PM Ordering Provider: [facility]09-24-2022 Evaluation + Plan noteExtracted from: Title:History and [...] to stepdown unit.30 minutes critical care time [facility] Consult note Author Jarad Pedro [facility] Note Date/Time November 11, 2024 12: 58pm [facility] Medical Records Department [address] [place] [address] Anesthesia Postop Eval I 11/11/24 1257 MR#: [id number] Acct: [id number] Name: CAROLYN ABBOTT Rep #:[id number] : 1950 73 From: Jarad Pedro CRNA PCP: Dr. Razia Maya, DO Status:REG SDC Y Race: C Location: [place] [address] Anesthesia: Postop Eval I Current Vital Signs Temperature: 97.2 F Pulse Rate: 59 Blood Pressure: 123/76 Respiratory Rate: 20 Pulse Ox: 98 Oxygen Delivery Method: Room Air Assessment Airway patent: Yes Spontaneous unlabored respirations: Yes Mental status: Awake nausea: No Vomiting: No Anesthesia Complication: No Fluid Hydration Crystalloid volume administer (ml): 20 Total IV fluid infused: 20 Progress Note Anesthesia document: Postop Eval 1 completed: Yes 11/11/24 1258 <Electronically signed by Jarad nettles CRNA> Date _ Jarad Pedro CRNA Cosigner Signature: Date CC: ~ Signed [facility] Work Phone: Evaluation noteNo assessment information available [facility] Work Phone: Evaluation note* Diagnosis Onset Date Resolution Status Hyperlipidemia acute Essential (primary) hypertension chronic Nonobstructive atherosclerosis of coronary artery chronic Nonrheumatic aortic (valve) stenosis chronic [facility] Work Phone: Evaluation note* Diagnosis Chronic diastolic HF (heart [...] kidney disease (HCC) documented in this encounter [facility] note* Diagnosis Onset Date Resolution Status Incisional hernia acute Umbilical hernia without men tion of obstruction or gangrene acute [facility] Work Phone: Evaluation note* Diagnosis Onset Date Resolution Status Incisional hernia acute Umbilical hernia without men tion of obstruction or gangrene acute Incisional hernia acute Umbilical hernia without men tion of obstruction or gangrene acute [facility] Work Phone: Evaluation note* Diagnosis Parkinson disease (HCC)- Primary Paralysis agitans Essential tremor [facility] [place] [facility]* Diagnosis Onset Date Resolution Status Incisional hernia acute Umbilical hernia without men tion of obstruction or gangrene resolved S/P hernia repair acute [facility] Work Phone: Evaluation note* Diagnosis Parkinson's disease with fluctuating manifestations, unspecified whether dyskinesia present- Primary Essential tremor documented in this encounter [facility] [place] [facility]* Diagnosis Acute otitis externa of both ears, unspecified type- Primary [facility] [place] [facility]* Diagnosis Parkinson's disease with fluctuating manifestations, unspecified whether dyskinesia present- Primary Essential tremor Myalgia Unspecified myalgia and myositis documented in this encounter [facility] note* Diagnosis Parkinson's disease with fluctuating manifestations, unspecified whether dyskinesia present (HCC)- Primary Essential tremor documented in this encounter [facility] note* Diagnosis Chronic diastolic HF (heart failure) (HCC)- Primary Chronic diastolic heart failure Essential hypertension, benign History of echocardiogram Other specified personal history presenting hazards to health History of cardiac cath Other postprocedural status History of stress test Other specified conditions influencing health status Never smoked cigarettes Other specified conditions influencing health status documented in this encounter [facility] note* Diagnosis Parkinson disease (HCC)- Primary Paralysis agitans Essential tremor Lumbar radiculopathy, right Hypertension, unspecified type Generalized pruritus Unspecified pruritic disorder documented in this encounter [facility] note* Diagnosis Essential hypertension, benign- Primary Chronic diastolic HF (heart failure) (HCC) Chronic diastolic heart failure Aortic valve stenosis, etiology of cardiac valve disease unspecified PATRICIO (obstructive sleep apnea) Obstructive sleep apnea (adult) (pediatric) Hyperlipidemia LDL goal <70 Other and unspecified hyperlipidemia Chronic kidney disease, unspecified CKD stage History of echocardiogram Other specified personal history presenting hazards to health History of cardiac cath Other postprocedural status History of stress test Other specified conditions influencing health status Non-smoker Other specified conditions influencing health status documented in this encounter [facility] note* Diagnosis Parkinson's disease with fluctuating manifestations, unspecified whether dyskinesia present (HCC)- Primary Essential tremor documented in this encounter [facility] note* Diagnosis Chest congestion- Primary Other symptoms involving respiratory system and chest Sinobronchitis Unspecified sinusitis (chronic) documented in this encounter [facility] note* Diagnosis Chest congestion Other symptoms involving respiratory system and chest Sinobronchitis Unspecified sinusitis (chronic) documented in this encounter [facility] note* Diagnosis Essential tremor- Primary Parkinson's disease with fluctuating manifestations, unspecified whether dyskinesia present (HCC) [facility] Narrative No data available for this section [facility] Reason for referral (narrative)* Outpatient Procedure (Routine) - Closed Specialty Diagnoses / Procedures Referred By Contac t [facility] Diagnoses Essential hypertension Procedures ECG COMPLETE ECG ROUTINE ECG W/LEAST 12 LDS W/I&R Milena Herman, EZEKIEL.TOOL CHECKER [address] [place] [address] [address] Referral ID Status Reason Start Date Expiration Date V isits Requested Visits Authorized [id number] Closed Auto-Generate d Referral 10/15/2022 10/15/2023 1 1 [facility] for referral (narrative)* Outpatient Procedure (Routine) - Pending Review Specialty Diagnoses / Procedures Referred By Contac t Referred To Contact [facility] Diagnoses Hypertension, unspecified type Procedures ECG COMPLETE ECG ROUTINE ECG W/LEAST 12 LDS W/I&R Milton Basilio DO [address] [address] Referral ID Status Reason Start Date Expiration Date Visits Requested Visits Authorized [id number] Pending Review Auto-Generat ed Referral 06/11/2024 1 1 [facility] for referral (narrative)* Outpatient Procedure (Routine) - Authorized Specialty Diagnoses / Procedures Referred By Contac t Referred To [facility] Diagnoses Chronic diastolic HF (heart failure) (HCC) Procedures ECHO ECHO TTHRC R-T 2D W/WOM-MODE COMPL SPEC&COLR D Milena Herman APRN.CNP [address] [address] Referral ID Status Reason Start Date Expiration Date Visits Requested Visits Authorized [id number] Authorized Auto-Generat ed Referral 03/14/2024 03/14/2025 1 1 * Outpatient Procedure (Routine) - New Request Specialty Diagnoses / Procedures Referred By Contac t Referred To Contact [facility] Diagnoses Essential hypertension, benign Procedures ECG COMPLETE ECG ROUTINE ECG W/LEAST 12 LDS W/I&R Milena Herman APRN.CNP [address] [place] [address] [facility] [place] [address] [facility] [address] Referral ID Status Reason Start Date Expiration Date Visits Requested Visits Authorized [id number] New Request Auto-Generat ed Referral 03/14/2024 03/14/2025 1 1 [facility] (n[facility]ative)No reason for referral [facility] Work Phone: Chief Complaint and Reason for Visit Chief Complaint DYSPNEA / HTN DYSPNEA / HTN BILATERAL LEG PAIN/WEAKNESS LEG PAIN & SWELLING, VARICOSE VEINS E ORDER Chief Complaint DYSPNEA / HTN DYSPNEA / HTN BILATERAL LEG PAIN/WEAKNESS LEG PAIN & SWELLING, VARICOSE VEINS E ORDER Other specified soft tissue disorders Chief Complaint LEG PAIN & SWELLING, VARICOSE VEINS E ORDER Other specified soft tissue disorders LUMBAR SPINAL STENOSIS Chief Complaint LUMBAR SPINAL STENOS IS 9 M FU MUR[facility] Amb Documentation OMAR COPY DR CHACKO Reason for Visit Hyperlipidemia Essential (primary) hypertension Nonobstructive atherosclerosis of coronary artery Nonrheumatic aortic (valve) stenosis Chief Complaint 9 M FU [facility]UR[facility] Amb Documentation OMAR COPY DR CHACKO Reason for Visit Hyperlipidemia Essential (primary) hypertension Nonobstructive atherosclerosis of coronary artery Nonrheumatic aortic (valve) stenosis Chief Complaint UMBILICAL HERNIA Reason for Visit Incisional hernia Umbilical hernia without mention of obstruction or gangrene Chief Complaint UMBILICAL HERNIA hybrid lap& open umbilical hernia hybrid lap& open umbilical hernia Reason for Visit Incisional hernia Umbilical hernia without mention of obstruction or gangrene Incisional hernia Umbilical hernia without mention of obstruction or gangrene Chief Complaint hybrid lap& open umb ilical hernia hybrid lap& open umbilical hernia HERNIA /10 Reason for Visit Incisional hernia Umbilical hernia without mention of obstruction or gangrene S/P hernia repair Chief Complaint Admit Date Amb Documentation September 27, 2024 1 1:46am RIGHT UPPER QUADRANT PAIN October 27, 2024 7:35am Chief Complaint Admit Date Amb Documentation September 27, 2024 1 1:46am RIGHT UPPER QUADRANT PAIN October 27, 2024 7:35am GALLBLADDER November 07, 2024 1:2 7pm Reason for Visit Admit Date Gallstones November 07, 2024 1:2 7pm GERD (gastroesophageal reflux disease) M arch 2024 1:27pm Chief Complaint Admit Date Amb Documentation September 27, 2024 1 1:46am RIGHT UPPER QUADRANT PAIN October 27, 2024 7:35am GALLBLADDER November 07, 2024 1:2 7pm Robotic Cholecystectomy w/grams November 242024 8:16am Robotic Cholecystectomy w/grams November 242024 9:44am Chief Complaint Admit Date Amb Documentation September 27, 2024 1 1:46am RIGHT UPPER QUADRANT PAIN October 27, 2024 7:35am GALLBLADDER November 07, 2024 1:2 7pm Robotic Cholecystectomy w/grams November 242024 8:16am PREOP November 24, 2024 8:3 7am Robotic Cholecystectomy w/grams November 242024 9:44am Chief Complaint Admit Date Robotic Cholecystectomy w/grams November 242024 8:16am PREOP November 24, 2024 8:3 7am Robotic Cholecystectomy w/grams November 242024 9:44am GALLBLADDER 11-24December 07, 2024 1:48 pm Reason for Visit Admit Date S/P laparoscopic cholecystectomy December 072024 1:48pm Family History No Family History Records Found Relationship Condition Age at Onset Recorded Date/T yanna father Coronary artery disease Unknown Sudden cardiac 59 Myocardial infarction 59 Hypertension Unknown mother Cardiac disease Unknown brother Sudden cardiac 68 Advance Directives No Advanced Directives Records Found Advance Directive Response Recorded Date/ Time Advance Directives Yes January 21 8:11am Living Will Yes April 01, 2021 8:53pm Power of Kaiawhina Kohanga Reo Yes April 01 8:53pm Advance Directive Response Recorded Date/ Time Name of Medical Power of Kaiawhina Kohanga Reo December 31, 2022 9:04am Advance Directives Yes January 21 8:11am Living Will Yes December 31, 2022 9: 04am Power of Kaia[place]ina Kohanga Reo Yes December 31, 2022 9:04am Advance Directive Response Recorded Date/ Time Advance Directives Yes January 21 8:11am Living Will Yes December 31, 2022 9: 04am Power of [place]ia[place]ina Kohanga Reo Yes December 31, 2022 9:04am Advance Directive Response Recorded Date/ Time Advance Directives Yes January 21 7:11am Advance Directive Response Recorded Date/ Time Advance Directives Yes January 21 8:11am Advance Directive Response Recorded Date/ Time Living Will Yes November 10, 2024 1:54pm Power of [place]ia[place]ina Kohanga Reo Yes November 10 1:54pm Name of Medical Power of Kaiawhina Kohanga Reo OR DTR November 10, 2024 1:54pm Advance Directives Yes January 21 8:11am Advance Directive Response Recorded Date/ Time Living Will Yes November 10, 2024 1:54pm Do you have a Healthcare Power of Kaiawhina Kohanga Reo? Yes November 10, 2024 1:54pm Name of Medical Power of Kaiawhina Kohanga Reo OR DTR November 10, 2024 1:54pm Living Will Yes November 23, 2024 9:19am Do you have a Healthcare Power of Kaiawhina Kohanga Reo? Yes November 23, 2024 9:19am Name of Medical Power of Kaiawhina Kohanga Reo ON FILE November 23, 2024 9:19am Advance Directives Yes January 21 8:11am Advance Directive Response Recorded Date/ Time Living Will Yes November 23, 2024 9:19am Do you have a Healthcare Power of Kaia[place]ina Kohanga Reo? Yes November 23, 2024 9:19am Name of Medical Power of Kaiawhina Kohanga Reo ON FILE November 23, 2024 9:19am Advance Directives Yes January 21 8:11am Summary Purpose Additional Source Comments Goals (unrecognized section and content) Goals may be documented in a n alternate sectionGoals may be documented in an alternate sectionGoals may be documented in an alternate section No data available for this sectionGoals may be documented in an alternate sectionGoals may be documented in an alternate sectionGoals may be documented in an alternate sectionGoals may be documented in an alternate sectionGoals may be documented in an alternate sectionGoals may be documented in an alternate sectionGoals may be documented in an alternate sectionGoals may be documented in an alternate section Care Team (unrecognized sect ion and content) Care Team Personnel Name: RAZIA MAYA DO Member Role: Primary Care Physician Address: Address: [address] [place], [place] [address] Care Team Related Persons Name: WOLF ABBOTT Name: OFE ABBOTT Source Comments (unrecognize d section and content) In the event this informatio n is protected by the Federal Confidentiality of Alcohol and Drug Abuse Patient Records regulations: The Federal rules restrict any use of the information to criminally investigate or prosecute any alcohol or drug abuse patient.[facility] CenterIn the event this information is protected by the Federal Confidentiality of Alcohol and Drug Abuse Patient Records regulations: The Federal rules restrict any use of the information to criminally investigate or prosecute any alcohol or drug abuse patient.[facility] CenterIn the event this information is protected by the Federal Confidentiality of Alcohol and Drug Abuse Patient Records regulations: The Federal rules restrict any use of the information to criminally investigate or prosecute any alcohol or drug abuse patient.[facility] CenterIn the event this information is protected by the Federal Confidentiality of Alcohol and Drug Abuse Patient Records regulations: The Federal rules restrict any use of the information to criminally investigate or prosecute any alcohol or drug abuse patient.[facility] CenterIn the event this information is protected by the Federal Confidentiality of Alcohol and Drug Abuse Patient Records regulations: The Federal rules restrict any use of the information to criminally investigate or prosecute any alcohol or drug abuse patient.[facility] CenterIn the event this information is protected by the Federal Confidentiality of Alcohol and Drug Abuse Patient Records regulations: The Federal rules restrict any use of the information to criminally investigate or prosecute any alcohol or drug abuse patient.[facility] CenterIn the event this information is protected by the Federal Confidentiality of Alcohol and Drug Abuse Patient Records regulations: The Federal rules restrict any use of the information to criminally investigate or prosecute any alcohol or drug abuse patient.[facility] CenterIn the event this information is protected by the Federal Confidentiality of Alcohol and Drug Abuse Patient Records regulations: The Federal rules restrict any use of the information to criminally investigate or prosecute any alcohol or drug abuse patient.[facility] CenterIn the event this information is protected by the Federal Confidentiality of Alcohol and Drug Abuse Patient Records regulations: The Federal rules restrict any use of the information to criminally investigate or prosecute any alcohol or drug abuse patient.[facility] CenterIn the event this information is protected by the Federal Confidentiality of Alcohol and Drug Abuse Patient Records regulations: The Federal rules restrict any use of the information to criminally investigate or prosecute any alcohol or drug abuse patient.[facility] CenterIn the event this information is protected by the Federal Confidentiality of Alcohol and Drug Abuse Patient Records regulations: The Federal rules restrict any use of the information to criminally investigate or prosecute any alcohol or drug abuse patient.[facility] Reason for Visit (unrecogniz ed section and [...] Reason Onset Date Comments Refill Request 06/20/2024 Reason Onset Date Comments Med Refill 10/06/2022 Reason Comments Follow-up Parkinson's tremors Reason Comments Established Patient Follow-Up 9 month fo llow up Reason Comments Cough Congestion, drainage Started 3 days ago Care Teams (unrecognized sec tion and content) 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 Relationship Specialty Start Date End Date Razia Maya DO [address] [place] [id number] PCP - General Family Medicine 10/16/22 Team Status: Active Member Role Status Dates Dr. Razia Maya DO Family Provider Active Dr. Razia Maya DO Primary Care Provider Active Team Status: Inactive Member Role Status Dates Dr. Razia Maya DO Primary Care Provider, Referrin g Provider Active Dr. Kathy Boss MD Attending Provider Active Team Status: Inactive Member Role Status Dates Dr. Razia Maya DO Primary Care Provider, Attendin g Provider Active Team Status: Inactive Member Role Status Dates Dr. Razia Maya DO Primary Care Provider Active Dr. Jac Giang MD Attending Provider, Referrin g Provider Active Team Status: Active Member Role Status Dates Dr. Razia Maya DO Primary Care Provider Active Dr. Kathy Boss MD Attending Provi gabo, Referring Provider, Other Provider Active Team Status: Inactive Member Role Status Dates Dr. Razia Maya DO Primary Care Provider Active Dr. 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 Start Date End Date Razia MayaDO PCP - General Family Medicine 10/16/22 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 Relationship 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 Start Date End Date Razia Maya [address] [place] [address] PCP - General 10/04/20 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 Relationship 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 Start Date End Date Razia MayaDO PCP - General Family Medicine 10/16/22 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 Relationship 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 Start Date End Date Razia Maya [address] [place] [address] PCP - General 10/04/20 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 Relationship Specialty Start Date End Date FrancescoRazia palomaresDO PCP - General Family Medicine 10/16/22 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 Relationship Specialty Start Date End Date Razia Maya AllenDO PCP - General Family Medicine 10/16/22 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 Razia Maya DO Primary Care Provider Active Team Status: Inactive Member Role Status Dates Dr. Razia Maya DO Primary Care Provider Active Start: September 19, 2024 End: September 19, 2024 Dr. Razia Maya DO Attending Provider Active Start: September 19, 2024 End: September 19, 2024 Dr. Razia Maya DO Referring Provider Active Start: September 19, 2024 End: September 19, 2024 Team Status: Active Member Role Status Dates Dr. Razia Maya DO Primary Care Provider Active Start: September 27, 2024 [facility] Attending Provider [facility] Status: Inactive Member Role Status Dates Dr. Razia Maya DO Primary Care Provider Active Start: October 24, 2024 End: October 24, 2024 LILIANA Kan Attending Provider Active St art: October 24, 2024 End: October 24, 2024 Team Status: Active Member Role Status Dates Dr. Razia Maya DO Primary Care Provider Active Start: October 27, 2024 LILIANA Kan Attending Provider Active St art: October 27, 2024 LILIANA Kan Referring Provider Active St art: October 27, 2024 Team Status: Inactive Member Role Status Dates Dr. Razia Maya DO Primary Care Provider Active Start: October 27, 2024 End: October 27, 2024 LILIANA Kan Attending Provider Active St art: October 27, 2024 End: October 27, 2024 LILIANA Kan Referring Provider Active St art: October 27, 2024 End: October 27, 2024 Team Status: Inactive Member Role Status Dates Dr. Razia Maya DO Primary Care Provider Active Start: November 07, 2024 End: November 07, 2024 Dr. Razia Maya DO Referring Provider Active Start: November 07, 2024 End: November 07, 2024 Dr. Kathy Boss MD Attending Provider Active Start: November 07, 2024 End: November 07, 2024 Team Status: Inactive Member Role Status Dates Dr. Razia Maya DO Primary Care Provider Active Start: November 11, 2024 End: November 11, 2024 Dr. Razia Maya DO Referring Provider Active Start: November 11, 2024 End: November 11, 2024 Dr. Kathy Boss MD Attending Provider Active Start: November 11, 2024 End: November 11, 2024 Team Status: Active Member Role Status Dates Dr. Razia Maya DO Primary Care Provider Active Start: November 11, 2024 Dr. Razia Maya DO Referring Provider Active Start: November 11, 2024 Dr. Kathy Boss MD Attending Provider Active Start: November 11, 2024 Dr. Kathy Boss MD Other Provider Active S tart: November 11, 2024 Team Status: Inactive Member Role Status Dates Dr. Razia Maya DO Primary Care Provider Active Start: November 24, 2024 End: November 24, 2024 Dr. Razia Maya DO Referring Provider Active Start: November 24, 2024 End: November 24, 2024 Dr. Kathy Boss MD Attending Provider Active Start: November 24, 2024 End: November 24, 2024 Team Status: Active Member Role Status Dates Dr. Razia Maya DO Primary Care Provider Active Start: November 24, 2024 Dr. Razia Maya DO Referring Provider Active Start: November 24, 2024 Dr. Kathy Boss MD Attending Provider Active Start: November 24, 2024 Dr. Kathy Boss MD Other Provider Active S tart: November 24, 2024 Team Status: Active Member Role Status Dates Dr. Razia Maya DO Primary Care Provider Active Start: November 24, 2024 End: November 24, 2024 Dr. Federico Chacko MD Attending Provider Active S tart: November 24, 2024 End: November 24, 2024 Dr. Federico Chacko MD Referring Provider Active S tart: November 24, 2024 End: November 24, 2024 Team Status: Inactive Member Role Status Dates Dr. Razia Maya DO Primary Care Provider Active Start: December 02, 2024 End: December 02, 2024 Dr. 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 Razia Maya DO Primary Care Provider Active Team Status: Inactive Member Role/Relationship Status Dates Dr. Razia Maya DO Primary Care Provider Active Start: November 24, 2024 End: November 24, 2024 Dr. Razia Maya DO Referring Provider Active Start: November 24, 2024 End: November 24, 2024 Dr. Kathy Boss MD Attending Provider Active Start: November 24, 2024 End: November 24, 2024 Team Status: Active Member Role/Relationship Status Dates Dr. Razia Maya DO Primary Care Provider Active Start: November 24, 2024 End: November 24, 2024 Dr. Federico Chacko MD Attending Provider Active S tart: November 24, 2024 End: November 24, 2024 Dr. Federico Chacko MD Referring Provider Active S tart: November 24, 2024 End: November 24, 2024 Team Status: Active Member Role/Relationship Status Dates Dr. Razia Maya DO Primary Care Provider Active Start: November 24, 2024 Dr. Razia Maya DO Referring Provider Active Start: November 24, 2024 Dr. Kathy Boss MD Attending Provider Active Start: November 24, 2024 Dr. Kathy Boss MD Other Provider Active S tart: November 24, 2024 Team Status: Inactive Member Role/Relationship Status Dates Dr. Razia Maya DO Primary Care Provider Active Start: December 02, 2024 End: December 02, 2024 Dr. Razia Maya DO Attending Provider Active Start: December 02, 2024 End: December 02, 2024 Team Status: Inactive Member Role/Relationship Status Dates Dr. Razia Maya DO Primary Care Provider Active Start: December 07, 2024 End: December 07, 2024 Dr. Razia Maya DO Referring Provider Active Start: December 07, 2024 End: December 07, 2024 Betsy ALVARADO PAErasmoC Attending Provider Active Start: December 07, 2024 End: December 07, 2024 Team Status: Inactive Member Role/Relationship Status Dates Dr. Razia Maya DO Primary Care Provider Active Start: March 09, 2025 End: March 09, 2025 Dr. Razia Maya DO Attending Provider Active Start: March 09, 2025 End: March 09, 2025 Dr. Razia Maya DO Referring Provider Active Start: March 09, 2025 End: March 09, 2025 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 Relationship Specialty Start Date End Date Razia Maya DO PCP - General Family Medicine 10/16/22 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 Relationship Specialty Start Date End Date Razia Maya [address] [facility] [place] [id number] PCP - General 10/04/20 (unrecognized sect ion and content) No Status Records FoundNo Status Records FoundNo Status Records FoundNo Status Records FoundNo Status Records FoundNo Status Records Found INFORMATION SOURCE (unrecogn ized section and content) DATE CREATED AUTHOR 12/14/2022 [facility] DATE CREATED AUTHOR AUTHOR'S ORGANIZ ATION 01/02/2024 [facility] ([place]) DATE CREATED AUTHOR AUTHOR'S ORGANIZ ATION 03/18/2025 [facility] DATE CREATED AUTHOR AUTHOR'S ORGANIZ ATION 03/27/2025 [facility] DATE CREATED AUTHOR AUTHOR'S ORGANIZ ATION 05/13/2025 [facility] DATE CREATED AUTHOR AUTHOR'S ORGANIZ ATION 06/18/2025 [facility] FOR RECORDS PERTAINING TO PATIENTS WHO [...] BE BASED ON THE PRIMARY CLINICAL RECORDS. [address]. provides no warranty or guarantee of the accuracy or completeness of information in this document.
[2025-06-26 08:30] LABS: Hematocrit 31.7 % (40-54); Hemoglobin 11.0 g/dL (13.0-16.5); Immature Granulocytes Count 0.040 X10^3/uL (0.0-0.0); Mean Corp Hgb Conc 34.7 g/dL (32-36); Mean Corpuscular Volume 91.4 fL (80-94); Mean Platelet Vol. 11.0 fl (6.2-12.0); NRBC Flagged by Analyzer 0 % (0-5); Platelet Count 154 K/mm3 (150-450); RBC Distribution Width CV 14.5 % (11.6-14.6); RBC Distribution Width SD 48.0 fl (35.1-43.9); Red Blood Count 3.47 M/mm3 (4.6-6.2); White Blood Count 5.2 K/mm3 (4.4-11.0)
[2025-06-26 08:56] LABS: PTHIN 47 pg/mL (11-61)
[2025-06-26 08:59] LABS: Uric Acid 9.9 mg/dL (3.5-7.2)
[2025-06-26 09:02] LABS: AST(SGOT) 20 U/L (<=37); Alanine Aminotransfer ALT/SGPT 8 U/L (<=46); Albumin, Serum 4.1 g/dL (3.4-4.8); Alkaline Phosphatase 84 U/L (40-129); Anion Gap 12 (5-15); BUN 51 mg/dL (4-19); BUN/Creat Ratio 27.9 RATIO (10-20); Calcium,Total 9.3 mg/dL (7.6-11.0); Carbon Dioxide 21.9 mmol/L (21.0-32.0); Chloride 106 mmol/L (98-108); Globulin 2.3 g/dL (2.2-4.2); Glucose 104 mg/dL (70-99); Potassium 5.5 mmol/L (3.3-5.1)
== END | disposition home or self-care (01) ==
LOC: LAB 07:28
PROVIDERS: PCP Family Medicine; Referring Provider Family Medicine; Visit Provider Family Medicine
DX: N18.31 Chronic kidney disease, stage 3a (principal); M10.9 Gout, unspecified; D63.1 Anemia in chronic kidney disease
CPT/HCPCS: 36415; 80053; 83970; 84100; 84550; 85025